=== PATIENT | male | born 1945 | race African-American/Black ===

== ENCOUNTER → 2016-11-13 | Outpatient (CLI) | payer MEDICARE ==
[2016-11-13 10:02] LABS: HEMATOCRIT 40.5 % (37.9-51.0); HGB HCT DIFFERENCE -1.5; MEAN CORPUSCULAR HEMOGLOBIN 25.7 pg (27.0-33.4); MEAN CORPUSCULAR HGB CONC 32.1 g/dL (32.0-36.0); MEAN CORPUSCULAR VOLUME 80 fl (80-97); RED BLOOD COUNT 5.07 10^6/uL (4.35-5.55); RED CELL DISTRIBUTION WIDTH 17.5 % (11.5-14.0); WHITE BLOOD COUNT 9.2 10^3/uL (4.0-10.5)
[2016-11-13 10:08] LABS: APPEARANCE,URINE CLEAR; BILIRUBIN,URINE NEGATIVE (NEGATIVE); GLUCOSE, URINE NEGATIVE (NEGATIVE); KETONES,URINE NEGATIVE (NEGATIVE); LEUKOCYTE ESTERASE,URINE NEGATIVE (NEGATIVE); NITRITE,URINE NEGATIVE (NEGATIVE); PROTEIN,URINE 100 mg/dL (NEGATIVE); UROBILINOGEN,URINE NEGATIVE mg/dL (<2.0)
[2016-11-13 10:15] LABS: ANION GAP 15 (5-19); BLOOD UREA NITROGEN 25 mg/dL (7-20); CALCIUM 9.2 mg/dL (8.4-10.2); CARBON DIOXIDE 22 mmol/L (22-30); CHLORIDE 110 mmol/L (98-107); CREATININE RESULT 1.67 mg/dL (0.52-1.25); GLUCOSE 149 mg/dL (75-110); POTASSIUM 4.2 mmol/L (3.6-5.0); SODIUM 147.4 mmol/L (137-145)
[2016-11-14 10:38] LABS: CREATININE URINE 79.1 mg/dL (Not Estab.)
== END ==
LOC: LAB 09:28
PROVIDERS: ATTEND Internal Medicine Nephrology
DX: I12.9 Hypertensive chronic kidney disease with stage 1 through stage 4 chronic kidney disease, or unspecified chronic kidney disease (principal); N18.3 Chronic kidney disease, stage 3 (moderate); E11.9 Type 2 diabetes mellitus without complications; R80.9 Proteinuria, unspecified; M10.00 Idiopathic gout, unspecified site
CPT/HCPCS: 36415; 80048; 81001; 82570; 84156; 85027

== ENCOUNTER 2017-02-13 18:53 | Inpatient (IN) | payer MEDICARE ==
--- NOTE | 2017-02-13 19:22 | ER Document Report ---
ED Medical Screen (RME) - General Chief Complaint: Shortness Of Breath Stated Complaint: DIFFICULTY BREATHING Time Seen by Provider: 02/13/17 19:20 Mode of Arrival: Ambulatory Information source: Patient Notes: 71-year-old man with a history of chronic kidney disease who presents to the emergency room with increasing shortness of breath, dyspnea on exertion and increasing lower extremity swelling over the last few days. TRAVEL OUTSIDE OF THE [place] IN LAST 30 DAYS: No - Related Data Allergies/Adverse Reactions: No Known Allergies Allergy (Verified 02/13/17 18:57) Past Medical History - Social History Chew tobacco use (# tins/day): No Frequency of alcohol use: None Drug Abuse: None - Past Medical History Cardiac Medical History: Reports: Hx Hypertension Renal/ Medical History: Denies: Hx Peritoneal Dialysis Past Surgical History: Reports: Hx Orthopedic Surgery - lt knee replacement, Hx Tonsillectomy - Immunizations Hx Diphtheria, Pertussis, Tetanus Vaccination: Yes Physical Exam - Vital signs Vitals: Temp Pulse Resp BP Pulse Ox 98.2 F 75 20 162/82 H 96 02/13/17 18:57 02/13/17 18:57 02/13/17 18:57 02/13/17 18:57 02/13/17 18:57 Course - Vital Signs Vital signs: Temp Pulse Resp BP Pulse Ox 98.2 F 75 20 162/82 H 96 02/13/17 18:57 02/13/17 18:57 02/13/17 18:57 02/13/17 18:57 02/13/17 18:57
[2017-02-13 19:47] LABS: ABSOLUTE BASOPHILS # (AUTO) 0.1 10^3/uL (0.0-0.2); ABSOLUTE EOSINOPHILS # (AUTO) 0.3 10^3/uL (0.0-0.6); ABSOLUTE LYMPHOCYTES (AUTO) 1.3 10^3/uL (0.5-4.7); ABSOLUTE NEUT (AUTO) 6.7 10^3/uL (1.7-8.2); BASOPHILS % (AUTO) 0.9 % (0-2); EOSINOPHILS % (AUTO) 2.9 % (0-6); HEMATOCRIT 41.3 % (37.9-51.0); HEMOGLOBIN 12.8 g/dL (13.5-17.0); HGB HCT DIFFERENCE -2.9; LYMPHOCYTES % (AUTO) 13.6 % (13-45); MEAN CORPUSCULAR HEMOGLOBIN 25.2 pg (27.0-33.4); MEAN CORPUSCULAR HGB CONC 31.1 g/dL (32.0-36.0); MEAN CORPUSCULAR VOLUME 81 fl (80-97); MONOCYTES % (AUTO) 11.2 % (3-13); RED BLOOD COUNT 5.08 10^6/uL (4.35-5.55); RED CELL DISTRIBUTION WIDTH 17.8 % (11.5-14.0); SEGMENTED NEUTROPHILS % (AUTO) 71.4 % (42-78); WHITE BLOOD COUNT 9.3 10^3/uL (4.0-10.5)
--- NOTE | 2017-02-13 19:57 | ER Document Report ---
ED General - General Chief Complaint: Shortness Of Breath Stated Complaint: DIFFICULTY BREATHING Time Seen by Provider: 02/13/17 19:20 Mode of Arrival: Ambulatory Notes: Patient is a 71-year-old male with a past medical history of hypertension, hypercholesterolemia, chronic kidney disease who presents with 4-5 days of progressively worsening orthopnea, dyspnea on exertion and peripheral edema. Denies a history of similar symptoms in the past. He has not seen his primary care doctor regarding today's concerns. States he came to the emergency department today due to his inability to see his primary care doctor. He denies any associated chest pain, vomiting or pain radiating into the arms, jaw or back. States that his shortness of breath is most severe when lying flat and this is actually prevented him from sleeping over the past several days. States in general his symptoms do improve after he sits up. Denies any fever or constitutional symptoms. TRAVEL OUTSIDE OF THE [place] IN LAST 30 DAYS: No - Related Data Allergies/Adverse Reactions: No Known Allergies Allergy (Verified 02/13/17 18:57) Past Medical History - General Information source: Patient - Social History Smoking Status: Never Smoker Chew tobacco use (# tins/day): No Frequency of alcohol use: None Drug Abuse: None Lives with: Spouse/Significant other Family History: Reviewed & Not Pertinent Patient has suicidal ideation: No Patient has homicidal ideation: No - Past Medical History Cardiac Medical History: Reports: Hx Hypertension Renal/ Medical History: Denies: Hx Peritoneal Dialysis Past Surgical History: Reports: Hx Orthopedic Surgery - lt knee replacement, Hx Tonsillectomy - Immunizations Hx Diphtheria, Pertussis, Tetanus Vaccination: Yes Review of Systems - Review of Systems Notes: Constitutional: Negative for fever. HENT: Negative for sore throat. Eyes: Negative for visual changes. Cardiovascular: Negative for chest pain. Respiratory: Positive for shortness of breath. Gastrointestinal: Negative for abdominal pain, vomiting or diarrhea. Genitourinary: Negative for dysuria. Musculoskeletal: Positive for bilateral lower extremity edema Skin: Negative for rash. Neurological: Negative for headaches, weakness or numbness. 10 point ROS negative except as marked above and in HPI. Physical Exam - Vital signs Vitals: Temp Pulse Resp BP Pulse Ox 98.2 F 75 20 162/82 H 96 02/13/17 18:57 02/13/17 18:57 02/13/17 18:57 02/13/17 18:57 02/13/17 18:57 Interpretation: Hypertensive Notes: PHYSICAL EXAMINATION: GENERAL: Well-appearing, well-nourished and in no acute distress. HEAD: Atraumatic, normocephalic. EYES: Pupils equal round and reactive to light, extraocular movements intact, sclera anicteric, conjunctiva are normal. ENT: nares patent, oropharynx clear without exudates. Moist mucous membranes. NECK: Normal range of motion, supple without lymphadenopathy LUNGS: Breath sounds are diminished at the bases bilaterally, more prominent on the right. No tachypnea or distress HEART: Regular rate and rhythm without murmurs ABDOMEN: Soft, nontender, normoactive bowel sounds. No guarding, no rebound. No masses appreciated. EXTREMITIES: Normal range of motion, 4+ pitting edema in the bilateral lower extremities NEUROLOGICAL: No focal neurological deficits. Moves all extremities spontaneously and on command. PSYCH: Normal mood, normal affect. SKIN: Warm, Dry, normal turgor, no rashes or lesions noted. Course - Re-evaluation Re-evalutation: 02/13/17 19:55 Patient presents with 3 days of progressively worsening orthopnea, lower extremity edema, and generalized fatigue. Initial EKG is consistent with a second-degree block although there are several components of the EKG that are somewhat worrisome for a third-degree block.. I contacted financial business analyst to review the EKG to confirm as we do not have electrophysiology at this facility and this would warrant transfer. Patient however is actually non-toxic in appearance, awake and talking to me without any difficulty. His heart rate does range anywhere between the mid 30s to upper 50s which again would be somewhat inconsistent with a third-degree block. Primary concern at this time is that patient may have a degree of congestive heart failure versus progressively worsening chronic kidney disease with associated pulmonary edema. Will obtain labs, chest x-ray, continue on monitor and storage bin tender, placed pads on patient's chest and continually reassess frequently. 02/13/17 20:19 I discussed this case with Dr. Haynes who feels that this is more likely a second-degree block and the patient does not require transfer to a place of electrophysiology. Patient remains hemodynamically stable. 02/13/17 21:15 Patient continues to be nontoxic in appearance. Laboratories demonstrate findings consistent with congestive heart failure with an elevated proBNP, and chest x-ray does demonstrate pulmonary edema and vascular congestion. Given patient's likely new diagnosis of congestive failure with associated pulmonary edema, symptomatic orthopnea, tachypnea on exertion, and a new second-degree block that was not present on a prior EKG, patient will be admitted to the hospital. - Vital Signs Vital signs: Temp Pulse Resp BP Pulse Ox 99.0 F 45 L 20 153/54 H 95 02/14/17 00:06 02/14/17 02:00 02/14/17 00:06 02/14/17 00:06 02/14/17 00:06 - Laboratory Result Diagrams: 02/13/17 19:25 02/13/17 19:25 Laboratory results interpreted by me: 02/13/17 02/13/17 02/13/17 19:25 19:25 19:25 Hgb 12.8 L MCH 25.2 L MCHC 31.1 L RDW 17.8 H Chloride 110 H Carbon Dioxide 19 L Creatinine 1.47 H Est GFR ( Amer) 57 L Est GFR (Non-Af Amer) 47 L Glucose 128 H NT-Pro-B Natriuret Pep 2650 H - Diagnostic Test Radiology reviewed: Image reviewed, Reports reviewed Radiology results interpreted by me: 02/13/17 21:30 Chest x-ray: Vascular congestion, pulmonary edema more prominent on the right lower lobe - EKG Interpretation by Me Additional EKG results interpreted by me: 02/14/17 03:00 Bradycardia rate 39. Second-degree AV block Mobitz type I. PACs present. No ST elevations are present Discharge - Discharge Clinical Impression: Orthopnea, Second degree AV block, Mobitz type I Pulmonary edema Qualifiers: Chronicity: acute Qualified Code(s): J81.0 - Acute pulmonary edema Condition: Fair Disposition: ADMITTED INPATIENT [facility] Admitted: [facility]
[2017-02-13 20:08] LABS: ALANINE AMINOTRANSFERASE 52 U/L (21-72); ALKALINE PHOSPHATASE 117 U/L (38-126); ANION GAP 13 (5-19); ASPARTATE AMINO TRANSFERASE 34 U/L (17-59); BILIRUBIN,DIRECT 0.3 mg/dL (0.0-0.4); BLOOD UREA NITROGEN 19 mg/dL (7-20); CARBON DIOXIDE 19 mmol/L (22-30); CHLORIDE 110 mmol/L (98-107); CREATINE KINASE 74 U/L (55-170); CREATININE RESULT 1.47 mg/dL (0.52-1.25); GLUCOSE 128 mg/dL (75-110); POTASSIUM 3.6 mmol/L (3.6-5.0); SODIUM 141.9 mmol/L (137-145)
[2017-02-13 20:20] LABS: CREATINE KINASE MB 1.08 ng/mL (<4.55); TROPONIN I 0.012 ng/mL
--- NOTE | 2017-02-13 20:28 | RADIOLOGY REPORT (SQ) ---
EXAM DESCRIPTION: CHEST SINGLE VIEW COMPLETED DATE/TIME: 02/13/2017 8:11 pm REASON FOR STUDY: sob COMPARISON: None. EXAM PARAMETERS: NUMBER OF VIEWS: One view. TECHNIQUE: Single frontal radiographic view of the chest acquired. RADIATION DOSE: NA LIMITATIONS: None. FINDINGS: LUNGS AND PLEURA: Patchy airspace disease in the right lung base. No significant effusion . No pneumothorax. Mild interstitial thickening bilaterally. MEDIASTINUM AND HILAR STRUCTURES: Age-appropriate. HEART AND VASCULAR STRUCTURES: Mild cardiac enlargement. BONES: No acute findings. HARDWARE: None in the chest. OTHER: No other significant finding. IMPRESSION: Patchy airspace disease in the right lung base. No significant effusion. Mild intersti tial thickening bilaterally. TECHNICAL DOCUMENTATION: JOB ID: [id number]
[2017-02-13] MEDS ORDERED: FUROSEMIDE INJ/PF 40 MG/4 ML SDV IV ONE (21:14)
[2017-02-13] MEDS ORDERED: NITROGLYCERIN 5 MG (0.2 MG/HR) PATCH.TD24 TD ONE (22:45)
--- NOTE | 2017-02-13 23:16 | PDOC H&P ---
History of Present Illness Admission Date/PCP: 02/13/17 22:11 SHAWN HERNANDEZ, Patient complains of: Shortness of breath and leg swelling History of Present Illness: HARMONY RODRIGUEZ is a 71 year old male with a past medical history of hypertension, gout and chronic kidney disease who had been in his usual state of health until approximately 4 days prior to presentation with shortness of breath with exertion and orthopnea. He denies recent chest, back or abdominal pain, palpitations nausea or vomiting. He also denies recent change in medications and or diet. In the emergency room he is found to have volume overload with a second-degree heart block with bradycardia. He started on Lasix and referred to the hospitalist for admission. Patient denies recent viral prodrome and is otherwise felt well. Past Medical History Cardiac Medical History: Reports: Hypertension Renal/ Medical History: Reports: Chronic Kidney Disease Musculoskeltal Medical History: Reports: Gout Past Surgical History Past Surgical History: Reports: Orthopedic Surgery - lt knee replacement, Tonsillectomy Social History Information Source: Patient Lives with: Spouse/Significant other Smoking Status: Never Smoker Frequency of Alcohol Use: None Drugs: None - Advance Directive Resuscitation Status: Full Code Family History Family History: None Parental Family History Reviewed: Yes Children Family History Reviewed: Yes Sibling(s) Family History Reviewed.: Yes Medication/Allergy Home Medications: Allopurinol [Zyloprim 300 Mg Tablet] 300 mg PO DAILY 07/04/12 Bisoprolol Fumarate/Hctz [Ziac 5-6.25 Mg Tablet] 1 each PO DAILY 07/04/12 Nifedipine [Adalat CC 60 mg Tablet] 60 mg PO DAILY 07/04/12 Allergies/Adverse Reactions: No Known Allergies Allergy (Verified 02/13/17 18:57) Review of Systems Constitutional: ABSENT: chills, fever(s), headache(s), weight gain, weight loss Eyes: ABSENT: visual disturbances Ears: ABSENT: hearing changes Cardiovascular: PRESENT: dyspnea on exertion, edema, orthropnea. ABSENT: chest pain, palpitations Respiratory: ABSENT: cough, hemoptysis Gastrointestinal: ABSENT: abdominal pain, constipation, diarrhea, hematemesis, hematochezia, nausea, vomiting Genitourinary: ABSENT: dysuria, hematuria Musculoskeletal: ABSENT: joint swelling Integumentary: ABSENT: rash, wounds Neurological: ABSENT: abnormal gait, abnormal speech, confusion, dizziness, focal weakness, syncope Psychiatric: ABSENT: anxiety, depression, homidical ideation, suicidal ideation Endocrine: ABSENT: cold intolerance, heat intolerance, polydipsia, polyuria Hematologic/Lymphatic: ABSENT: easy bleeding, easy bruising Physical Exam Vital Signs: Temp Pulse Resp BP Pulse Ox 98.2 F 75 25 H 173/63 H 96 02/13/17 18:57 02/13/17 18:57 02/13/17 22:42 02/13/17 22:42 02/13/17 22:42 General appearance: PRESENT: no acute distress, cooperative, well-developed, well-nourished Head exam: PRESENT: atraumatic, normocephalic Eye exam: PRESENT: conjunctiva pink, EOMI, PERRLA. ABSENT: scleral icterus Ear exam: PRESENT: normal external ear exam Mouth exam: PRESENT: moist, tongue midline Neck exam: ABSENT: carotid bruit, JVD, lymphadenopathy, thyromegaly Respiratory exam: PRESENT: crackles, decreased breath sounds, tachypnea. ABSENT : rales, rhonchi, wheezes Cardiovascular exam: PRESENT: bradycardia, irregular rhythm, +S1, +S2. ABSENT: diastolic murmur, rubs, systolic murmur Pulses: PRESENT: normal dorsalis pedis pul Vascular exam: PRESENT: normal capillary refill GI/Abdominal exam: PRESENT: normal bowel sounds, soft. ABSENT: distended, guarding, mass, organolmegaly, rebound, tenderness Rectal exam: PRESENT: deferred Extremities exam: PRESENT: full ROM, pedal edema, +2 edema. ABSENT: calf tenderness, clubbing, joint swelling, tenderness Neurological exam: PRESENT: alert, awake, oriented to person, oriented to place , oriented to time, oriented to situation, CN II-XII grossly intact. ABSENT: motor sensory deficit Psychiatric exam: PRESENT: appropriate affect, normal mood. ABSENT: homicidal ideation, suicidal ideation Skin exam: PRESENT: dry, intact, warm. ABSENT: cyanosis, rash Results Impressions: Chest X-Ray 02/13/17 19:20 IMPRESSION: Patchy airspace disease in the right lung base. No significant effusion. Mild interstitial thickening bilaterally. Assessment & Plan - Diagnosis (1) Congestive heart failure Qualifiers: Congestive heart failure type: unspecified congestive heart failure type Is this a current diagnosis for this admission?: YesPlan: Secondary to dysrhythmia resulting in volume overload, transcutaneous pacemaker placed, cardiology consulted, beta-shereen reduced, transdermal nitro and Lasix initiated. 2D echo and fluid restriction ordered (2) Chronic kidney disease Is this a current diagnosis for this admission?: YesPlan: Chronic kidney disease, avoiding nephrotoxic meds and doses holding allopurinol. Reevaluate chemistry (3) Hypertension Is this a current diagnosis for this admission?: YesPlan: Optimize ERIKA inhibitor, nitroglycerin and as needed hydralazine. Norvasc held for edema (4) Second degree AV block, Mobitz type I Is this a current diagnosis for this admission?: YesPlan: Transcutaneous pacing placed not yet indicated, cardiology consult. - Time Time Spent: 50 to 70 Minutes - Inpatient Certification Medical Necessity: Need Close Monitoring Due to Risk of Patient Decompensation
[2017-02-14 02:01] LABS: CREATINE KINASE MB 1.08 ng/mL (<4.55); TROPONIN I 0.016 ng/mL
[2017-02-14] MEDS: HEPARIN SOD (PORCINE) 5,000 UNIT/ML 1 ML SYRINGE SUBCUT SCH ×3 (05:54→22:06)
[2017-02-14 08:23] LABS: ABSOLUTE EOSINOPHILS # (AUTO) 0.3 10^3/uL (0.0-0.6); ABSOLUTE MONOCYTES (AUTO) 0.9 10^3/uL (0.1-1.4); ABSOLUTE NEUT (AUTO) 6.8 10^3/uL (1.7-8.2); BASOPHILS % (AUTO) 0.5 % (0-2); EOSINOPHILS % (AUTO) 3.1 % (0-6); HEMATOCRIT 38.5 % (37.9-51.0); HEMOGLOBIN 12.2 g/dL (13.5-17.0); HGB HCT DIFFERENCE -1.9; LYMPHOCYTES % (AUTO) 11.1 % (13-45); MEAN CORPUSCULAR HEMOGLOBIN 25.8 pg (27.0-33.4); MEAN CORPUSCULAR HGB CONC 31.6 g/dL (32.0-36.0); MEAN CORPUSCULAR VOLUME 82 fl (80-97); MONOCYTES % (AUTO) 10.2 % (3-13); RED BLOOD COUNT 4.73 10^6/uL (4.35-5.55); RED CELL DISTRIBUTION WIDTH 17.2 % (11.5-14.0); SEGMENTED NEUTROPHILS % (AUTO) 75.1 % (42-78)
[2017-02-14 08:43] LABS: ANION GAP 15 (5-19); BLOOD UREA NITROGEN 17 mg/dL (7-20); CALCIUM 8.8 mg/dL (8.4-10.2); CARBON DIOXIDE 21 mmol/L (22-30); CHLORIDE 109 mmol/L (98-107); CHOLESTEROL 134.56 mg/dL (0-200); CREATINE KINASE 55 U/L (55-170); CREATININE RESULT 1.42 mg/dL (0.52-1.25); Direct HDL 36 mg/dL (>40); GLUCOSE 116 mg/dL (75-110); POTASSIUM 3.4 mmol/L (3.6-5.0); SODIUM 144.5 mmol/L (137-145); TRIGLYCERIDES 73 mg/dL (<150)
[2017-02-14 08:51] LABS: CREATINE KINASE MB 0.72 ng/mL (<4.55); TROPONIN I 0.017 ng/mL
[2017-02-14 08:54] LABS: DIRECT LDL 81 mg/dL (<100)
--- NOTE | 2017-02-14 09:13 | EKG REPORT ---
SEVERITY:- ABNORMAL ECG - SINUS BRADYCARDIA MOBITZ I AV BLOCK ([place]) LEFT ANTERIOR FASCICULAR BLOCK BORDERLINE T WAVE ABNORMALITIES : Confirmed by: Apolinar Arango MD 14-Feb-2017 09:13:07
--- NOTE | 2017-02-14 09:15 | EKG REPORT ---
SEVERITY:- ABNORMAL ECG - SINUS BRADYCARDIA SECOND DEGREE AV BLOCK MOBITZ I. LEFT ANTERIOR FASCICULAR BLOCK OLD ANTERIOR [place] : Confirmed by: Apolinar Arango MD 14-Feb-2017 09:14:39
[2017-02-14] MEDS ORDERED: ATROPINE SULFATE INJ 1 MG/10 ML DISP.SYRIN IV ONE ×2 (09:24→10:00)
[2017-02-14] MEDS ORDERED: POTASSIUM CHLORIDE 20 MEQ/15 ML UDCUP PO ONE (09:26)
[2017-02-14] MEDS: FUROSEMIDE INJ/PF 40 MG/4 ML SDV IV SCH (09:45)
[2017-02-14] MEDS: ENALAPRIL MALEATE 10 MG TABLET PO SCH ×2 (09:47→22:05)
[2017-02-14] MEDS: DOCUSATE SODIUM 100 MG CAPSULE PO SCH (09:47)
[2017-02-14] MEDS: ASPIRIN 81 MG TABLET, ENT COATED PO SCH (09:48)
[2017-02-14 10:00] LABS: FREE T3 4.22 pg/mL (2.77-5.27)
[2017-02-14] MEDS ORDERED: CARVEDILOL 12.5 MG TABLET PO SCH (10:00)
[2017-02-14 10:14] LABS: THYROID STIMULATING HORMONE 2.23 uIU/mL (0.47-4.68)
--- NOTE | 2017-02-14 15:13 | CONSULTATION REPORT E ---
Consultation Report NAME: HARMONY RODRIGUEZ : 1945 AGE: 71Y DATE: 02/14/2017 335 A TO: EMMA FIORE M.D. FROM: GEORGINA GREER M.D. Requesting Physician REASON FOR CONSULTATION: Bradycardia and second degree AV block. HISTORY OF PRESENT ILLNESS: The patient is a 71-year-old male with past medical history of hypertension and chronic kidney disease who states that since the past 4 days prior to admission he has been having progressively increasing shortness of breath with less shortness of breath with PND, orthopnea, and leg edema. He also had some chest tightness which is now relieved. Also the patient's PND and leg edema is much improved now with treatment. The patient was seen in the emergency room and the ER doctor called me saying that the patient was in complete heart block but on review of the EKG by me on the computer in [employer], although he had episodes of 2:1 second degree AV block, it seemed that there were episodes where the patient had second degree AV block type I Wenckebach. Also when he had 2:1 AV block, the QRS complexes were narrow and in view of the patient's other rhythm showing that the patient was in Wenckebach type I second degree AV block, it was thought that this 2:1 AV block was also secondary to Wenckebach. The patient denies any dizziness or syncope or near syncope. There are no TIA or CVA symptoms. At present the patient has no shortness of breath at rest and has no PND but does have some orthopnea. The patient's states with diuretics he had good diuresis. The patient's blood pressure has remained stable even when the patient had second degree AV block. After I gave the patient atropine 0.6 mg IV push times 1, the patient's EKG seems to be showing sinus rhythm with first degree AV block and occasionally blocked APCs. PAST MEDICAL HISTORY: Positive for history of hypertension and history of chronic kidney disease. He also has history of glaucoma. The patient for his blood pressure has been on Coreg, amlodipine, timolol for his eyedrops, and also lisinopril. The patient's Coreg has been discontinued. He has a history of diabetes mellitus type 2, non-insulin dependent. He used to be on metformin which recently has been discontinued. He has a history of chronic kidney disease. At present seems to be stage II with a GFR of 59 mL/min. He also has hypokalemia which has been corrected. He has no history of TIA or CVA. No history of AZ. Patient denies past history of congestive heart failure, only recent leg edema, PND, orthopnea. The patient denies any palpitations, dizziness, near syncope, or syncope. There is no history of coronary heart disease. No history of rheumatic fever. No history of AZ or anginal symptoms. No history of asthma or COPD. No history of sleep apnea. No history of pulmonary embolism. No recent cough or sputum production. No symptoms of urinary tract infection. REVIEW OF SYSTEMS: CONSTITUTIONAL: Denies any fever, chills, or rigors. Patient has some mild generalized fatigue. HEAD: Denies any dizziness or head injury. EYES: No history of amblyopia or diplopia. No history of amaurosis fugax. EARS: No history of hearing loss. No history of tinnitus. No history of vertigo. NOSE: No history of deviated nasal septum. No bleeding from the nose. No history of hay fever. No history of nasal polyposis. MOUTH: No history of altered taste sensation. No history of ulcers in the mouth. No history of bleeding from the gums. THROAT: No history of odynophagia or dysphagia. No history of recurrent sore throats. SKIN: No pruritus. No yellowish discoloration of the skin. No history of psoriasis. No history of skin cancer. NECK: No history of painless or painful swelling in the neck. No neck pain. No goiter. LUNGS: No history of recent cough or sputum production. No wheezing. No history of asthma or COPD. No history of sleep apnea. No history of pulmonary embolism. No history of pleuritic chest pain. No history of hemoptysis. No symptoms suggestive of upper or lower respiratory tract infection of pneumonia. CARDIAC: History of hypertension. At present patient on Coreg. Doubt second degree AV block with stable blood pressure and without any symptoms of dizziness or syncope or near syncope. His Coreg has been stopped and now the patient is in sinus rhythm with first degree AV block with occasional blocked premature atrial complexes. The patient has no history of congestive heart failure although recently the patient's symptoms suggestive of biventricular failure with leg edema, PND, orthopnea. No history of AZ. No prior history of anginal symptoms but the patient states that recently he has been having chest tightness. This may be due to the patient being in volume overload congestive heart failure. It is not known what the patient's systolic function is and if at all the patient has diastolic dysfunction, we will need an echo. There is no history of dizziness or near syncope or syncope. History of hypertension well controlled. No prior history of AZ or anginal symptoms. MUSCULOSKELETAL: Denies arthritis or collagen vascular disease. RENAL: History of chronic kidney disease. At present GFR is 59, hence the patient is stage II. On admission the patient was stage III. No symptoms of UTI. No symptoms of an enlarged prostate. No history of hematuria, pyuria, or dysuria. GASTROINTESTINAL: No history of GERD. No history of peptic ulcer disease. No history of GI bleed. No history of fatty food intolerance. No history of abdominal pain. No history of jaundice. No history of cirrhosis. No history of altered bowel movements. CENTRAL NERVOUS SYSTEM: No history of TIA or CVA. No history of seizures, headaches, or migraines. No history gait imbalance. No history of sleep apnea. PSYCHIATRIC: No history of anxiety or depression. No suicidal or homicidal ideation. VASCULAR: No history of calf or buttock claudication. No history of DVT. HEMATOLOGICAL: No history of bleeding diathesis. No history of clotting disorders. ALLERGIES: The patient has no known allergies. SOCIAL HISTORY: The patient does not smoke. There is no history of ETOH abuse. DISPOSITION: The patient is a FULL CODE. His is the surrogate healthcare decision maker. MEDICATIONS: 1. Aspirin 81 mg p.o. daily. 2. Note that the patient had one dose of atropine 0.6 mg times 1. 3. Colace 100 mg p.o. daily. 4. He is on Vasotec 10 mg p.o. q.12 hours. 5. He did get Lasix 40 mg IV push times 1 yesterday and he is on 40 mg IV daily. 6. He is on heparin 5000 units subcutaneously q.8 hours for DVT/PE prophylaxis. 7. He is on nitroglycerin, Nitro-Dur transdermal times 1 which has been discontinued. 8. He did get KCL 30 mEq p.o. times 1 for his potassium being low. PHYSICAL EXAMINATION: On examination, the patient was seen around 9 a.m. VITAL SIGNS: His pulse was 60 beats per minute. The patient is afebrile with a temperature of 98.2 degrees Fahrenheit. His blood pressure is 138/72. Respirations are 16 per minute. O2 saturations are 96% on room air. HEAD: Atraumatic, normocephalic. EYES: Pupils are equal, round, regular and reactive to light and accommodation. Extraocular movements are normal. There is no conjunctival pallor. There is no scleral icterus. EARS: Tympanic membranes are intact. External auditory canals are clear. NOSE: There is no deviated nasal septum. There is no inflammation of the nasal mucous membranes. THROAT: Mucous membranes of the throat are without any exudates or redness. SKIN: There are no skin rashes. There is no petechia or ecchymosis. There are no skin lesions. NECK: Supple. There is mild JVD present. Carotids are equal. There is no bruit. There is no goiter. There is no lymphadenopathy. There are axillary muscles of respiration in use. Trachea is central. LUNGS: Show a few bibasilar rales of CHF. There is no chest wall tenderness. HEART: S1 and S2 are heard. There is no S3 gallop. There is no S4 gallop. There is a systolic murmur in the left sternal border and the apex. There are no rubs. ABDOMEN: Soft, nontender. There is no hepatosplenomegaly. Bowel sounds are well heard. There are no tender areas or masses. EXTREMITIES: Femorals are slightly diminished. There are no femoral bruits. Leg pulses are well felt. There is trace to mild pedal edema bilaterally. There is no cyanosis or clubbing. There is no DVT or cellulitis. There is no calf tenderness. CENTRAL NERVOUS SYSTEM: The patient is conscious, awake, alert, oriented x3 with no focal deficits. PSYCHIATRIC: The patient's judgment and insight are intact. His affect is normal. DIAGNOSTICS: The patient's chest x-ray shows patchy airspace disease in the right lung base. No significant effusion. Mild interstitial thickening bilaterally. There is mild cardiac enlargement but no definite evidence of congestive heart failure. The patient's EKG done yesterday shows a heart rate of 39 beats per minute which is second degree AV block, Mobitz type I. Left anterior fascicular block. Poor R wave in V1-V3 most likely secondary to left anterior fascicular block. The patient's EKG done this morning shows sinus bradycardia, Mobitz type 1 AV block, left anterior fascicular block, borderline T wave abnormalities and also blocked APCs. His EKG subsequent to giving atropine shows sinus bradycardia with first degree AV block and occasional blocked APCs. The patient's sodium is 144.5, potassium 3.4, chloride is 109, CO2 is 21. The patient's BUN is 17, creatinine is 1.42, GFR is reduced at 59 mL. His glucose is 116 and his calcium is 8.8. His cardiac enzymes have been negative x3 including the CPK-MB and the troponin I. his NT-proBNP is 2650. His triglycerides are 73. His total cholesterol is 134.56. His LDL cholesterol is good at 81. His HDL cholesterol is low at 36. His thyroid function showed a normal TSH of 2.23. Free T4 is 1.37. Free T3 is 4.22. The patient's white count is 9000, hemoglobin is 12.2, hematocrit is 38.5, and his platelet count is 190,000. IMPRESSION: 1. Second degree AV block, Mobitz type I with a stable blood pressure and asymptomatic. 2. Volume overload congestive heart failure, most likely secondary to his renal function deteriorating. Cannot at present conclude if the patient has systolic or diastolic or a combination of systolic and diastolic heart failure. Will need an echocardiogram. Note that the patient's Coreg has been held. He is on Vasotec. Continue the same. 3. Hypertension seems to be fairly well controlled. 4. Diabetes mellitus type 2, non-insulin dependent. 5. Dyslipidemia. 6. Chronic kidney disease. At present stage II. On admission it was stage III. Continue the patient's Lasix. Continue his other medications. Will hold the patient's beta shereen. We will get an echocardiogram. Later would recommend the patient have an IV Lexiscan Cardiolite stress test. Note, the patient was seen at 9 a.m. Forty minutes spent on the patient with more than 50% of the time spent on direct patient care. His medications have been reviewed. Medications have been adjusted and stopped. Medications added. Note this required a highly complex medical decision making. Discussed with other caregiving providers on the case. We will follow with you. Coordination of care done and management plan formulated for this patient after discussions with the other caregiving providers on the case. We will follow up with you. Thanking you. DICTATING PHYSICIAN: EMMA FIORE M.D. [id number] PHY#: [id number] ID: [id number] JOB#: [id number] ACCT: [id number] cc:EMMA FIORE M.D. > MTDD
[2017-02-14 15:19] LABS: CREATINE KINASE MB 0.73 ng/mL (<4.55); TROPONIN I 0.013 ng/mL
--- NOTE | 2017-02-14 16:38 | EKG REPORT ---
SEVERITY:- ABNORMAL ECG - SINUS RHYTHM NONCONDUCTED PAC FIRST DEGREE AV BLOCK LEFT ANTERIOR FASCICULAR BLOCK : Confirmed by: Apolinar Arango MD 14-Feb-2017 16:37:59
--- NOTE | 2017-02-14 19:49 | PDOC PROGRESS REPORT ---
Subjective Progress Note for:: 02/14/17 Subjective:: Patient continues to have a heart rate in the 30s and 40s. Patient denies chest pain, shortness of breath, nausea, vomiting, fever, chills. Physical Exam Vital Signs: Temp Pulse Resp BP Pulse Ox 98.0 F 61 20 141/71 H 95 02/14/17 03:53 02/14/17 03:53 02/14/17 03:53 02/14/17 03:53 02/14/17 03:53 Intake & Output 02/13/17 02/14/17 02/15/17 06:59 06:59 06:59 Intake Total 200 Output Total 1775 Balance -1575 Weight 84.8 kg Exam: GENERAL: A+Ox3, NAD HEENT: Conjunctiva clear, nonicteric, moist mucous membranes, no JVD, midline trachea RESPIRATORY: CTAB CARDIAC: Bradycardic, regularly irregular, +2/6 SM LLSB, no gallops/rubs ABDOMEN: Soft, NTTP, ND, +BSx4 EXTREMETIES: No cyanosis, clubbing; 2+ bilateral lower extremity edema NEUROLOGIC: Alert, oriented to person/place/time, CN's grossly intact, no focal deficits SKIN: No rash, wounds PSYCH: Normal mood, normal affect Results Laboratory Results: 02/14/17 02/14/17 01:27 01:27 Creatine Kinase 69 CK-MB (CK-2) 1.08 Troponin I 0.016 Impressions: Chest X-Ray 02/13/17 19:20 IMPRESSION: Patchy airspace disease in the right lung base. No significant effusion. Mild interstitial thickening bilaterally. Assessment & Plan - Diagnosis (1) Second degree AV block, Mobitz type I Is this a current diagnosis for this admission?: YesPlan: Patient currently with second-degree Mobitz block. Stop patient's Coreg and Norvasc. Continue to monitor. Consider dopamine for hypotension and dobutamine for congestive heart failure. Appreciate cardiology input. Continue to monitor patient on telemetry for fear of worsening to third-degree heart block. (2) Congestive heart failure Qualifiers: Congestive heart failure type: unspecified congestive heart failure type Congestive heart failure chronicity: acute Qualified Code(s): I50.9 - Heart failure, unspecified Is this a current diagnosis for this admission?: YesPlan: Patient with acute congestive heart failure. Continue diuresis. Unable to tolerate beta-shereen secondary to bradycardia. Lisinopril 40 mg p.o. daily. Echo currently pending. Consider dobutamine if patient persists with bradycardia and heart failure. (3) Chronic kidney disease Qualifiers: Chronic kidney disease stage: stage 2 (mild) Qualified Code(s): N18.2 - Chronic kidney disease, stage 2 (mild) Is this a current diagnosis for this admission?: YesPlan: Adjust medications (4) Hypertension Qualifiers: Hypertension type: unspecified Qualified Code(s): I10 - Essential ( primary) hypertension Is this a current diagnosis for this admission?: YesPlan: Currently controlled on lisinopril and will consider as needed hydralazine. - Time Time Spent with patient: 15-24 minutes Medications reviewed and adjusted accordingly: Yes Within: Other - Improvement patient's symptomatology
[2017-02-14] MEDS ORDERED: NITROGLYCERIN 5 MG (0.2 MG/HR) PATCH.TD24 TD SCH (22:00)
[2017-02-14] MEDS: LATANOPROST 0.005% OPH SOLN 2.5 ML OS SCH (23:02)
[2017-02-15] MEDS: HEPARIN SOD (PORCINE) 5,000 UNIT/ML 1 ML SYRINGE SUBCUT SCH ×3 (06:11→21:18)
[2017-02-15 08:30] LABS: ABSOLUTE BASOPHILS # (AUTO) 0.1 10^3/uL (0.0-0.2); ABSOLUTE EOSINOPHILS # (AUTO) 0.3 10^3/uL (0.0-0.6); ABSOLUTE LYMPHOCYTES (AUTO) 1.6 10^3/uL (0.5-4.7); ABSOLUTE MONOCYTES (AUTO) 1.2 10^3/uL (0.1-1.4); ABSOLUTE NEUT (AUTO) 6.7 10^3/uL (1.7-8.2); BASOPHILS % (AUTO) 0.9 % (0-2); EOSINOPHILS % (AUTO) 2.6 % (0-6); HEMATOCRIT 40.3 % (37.9-51.0); HEMOGLOBIN 12.7 g/dL (13.5-17.0); HGB HCT DIFFERENCE -2.2; LYMPHOCYTES % (AUTO) 16.4 % (13-45); MEAN CORPUSCULAR HEMOGLOBIN 25.7 pg (27.0-33.4); MEAN CORPUSCULAR HGB CONC 31.4 g/dL (32.0-36.0); MEAN CORPUSCULAR VOLUME 82 fl (80-97); MONOCYTES % (AUTO) 12.2 % (3-13); RED BLOOD COUNT 4.92 10^6/uL (4.35-5.55); RED CELL DISTRIBUTION WIDTH 17.5 % (11.5-14.0); SEGMENTED NEUTROPHILS % (AUTO) 67.9 % (42-78); WHITE BLOOD COUNT 9.9 10^3/uL (4.0-10.5)
[2017-02-15 08:38] LABS: ANION GAP 12 (5-19); BLOOD UREA NITROGEN 19 mg/dL (7-20); CALCIUM 8.7 mg/dL (8.4-10.2); CARBON DIOXIDE 23 mmol/L (22-30); CHLORIDE 108 mmol/L (98-107); GLUCOSE 126 mg/dL (75-110); POTASSIUM 3.7 mmol/L (3.6-5.0)
[2017-02-15] MEDS: LISINOPRIL 10 MG TABLET PO SCH (10:27)
[2017-02-15] MEDS ORDERED: ATROPINE SULFATE INJ 1 MG/10 ML DISP.SYRIN IV ONE ×2 (10:30→11:00)
[2017-02-15] MEDS: FUROSEMIDE INJ/PF 40 MG/4 ML SDV IV SCH (10:31)
[2017-02-15] MEDS: ASPIRIN 81 MG TABLET, ENT COATED PO SCH ×2 (10:31→10:33)
[2017-02-15] MEDS: ATORVASTATIN CALCIUM 10 MG TABLET PO SCH (10:31)
[2017-02-15] MEDS: ENALAPRIL MALEATE 10 MG TABLET PO SCH ×2 (10:31→21:18)
[2017-02-15] MEDS: DORZOLAMIDE HCL 2% OPH SOLN 10 ML OS SCH ×3 (10:32→17:44)
[2017-02-15] MEDS: DOCUSATE SODIUM 100 MG CAPSULE PO SCH (10:32)
--- NOTE | 2017-02-15 12:57 | PDOC PROGRESS REPORT ---
Subjective Progress Note for:: 02/15/17 Subjective:: Patient continues to have a heart rate in the 30s and 40s. Patient denies chest pain, shortness of breath, nausea, vomiting, fever, chills , constipation, diarrhea. Physical Exam Vital Signs: Temp Pulse Resp BP Pulse Ox 98.2 F 62 18 151/79 H 98 02/15/17 12:16 02/15/17 12:16 02/15/17 12:16 02/15/17 12:16 02/15/17 12:16 Intake & Output 02/14/17 02/15/17 02/16/17 06:59 06:59 06:59 Intake Total 200 1038 Output Total 1773 6640 Balance -1575 -153 Weight 84.8 kg 84.3 kg Exam: GENERAL: A+Ox3, NAD HEENT: Conjunctiva clear, nonicteric, moist mucous membranes, no JVD, midline trachea RESPIRATORY: CTAB CARDIAC: Bradycardic, regularly irregular, +2/6 SM LLSB, no gallops/rubs ABDOMEN: Soft, NTTP, ND, +BSx4 EXTREMETIES: No cyanosis, clubbing; 1+ bilateral lower extremity edema NEUROLOGIC: Alert, oriented to person/place/time, CN's grossly intact, no focal deficits SKIN: No rash, wounds PSYCH: Normal mood, normal affect Results Laboratory Results: 02/15/17 08:10 02/15/17 08:10 02/15/17 02/15/17 08:10 08:10 WBC 9.9 RBC 4.92 Hgb 12.7 L Hct 40.3 MCV 82 MCH 25.7 L MCHC 31.4 L RDW 17.5 H Plt Count 187 Seg Neutrophils % 67.9 Lymphocytes % 16.4 Monocytes % 12.2 Eosinophils % 2.6 Basophils % 0.9 Absolute Neutrophils 6.7 Absolute Lymphocytes 1.6 Absolute Monocytes 1.2 Absolute Eosinophils 0.3 Absolute Basophils 0.1 Sodium 143.0 Potassium 3.7 Chloride 108 H Carbon Dioxide 23 Anion Gap 12 BUN 19 Creatinine 1.50 H Est GFR ( Amer) 56 L Est GFR (Non-Af Amer) 46 L Glucose 126 H Calcium 8.7 02/14/17 02/14/17 02/14/17 01:27 01:27 07:50 Creatine Kinase 69 55 CK-MB (CK-2) 1.08 Troponin I 0.016 02/14/17 02/14/17 02/14/17 07:50 14:12 14:12 Creatine Kinase 52 L CK-MB (CK-2) 0.72 0.73 Troponin I 0.017 0.013 Impressions: Chest X-Ray 02/13/17 19:20 IMPRESSION: Patchy airspace disease in the right lung base. No significant effusion. Mild interstitial thickening bilaterally. Assessment & Plan - Diagnosis (1) Second degree AV block, Mobitz type I Is this a current diagnosis for this admission?: YesPlan: Patient currently with second-degree Mobitz block. Continue to hold patient's Coreg and Norvasc. Have also held patient's combigen and timolol eye ggt. Continue to monitor. Consider dopamine for hypotension and dobutamine for congestive heart failure. Appreciate cardiology input and administration of atropine. Continue to monitor patient on telemetry for fear of worsening to third-degree heart block. (2) Congestive heart failure Qualifiers: Congestive heart failure type: unspecified congestive heart failure type Congestive heart failure chronicity: acute Qualified Code(s): I50.9 - Heart failure, unspecified Is this a current diagnosis for this admission?: YesPlan: Uncompensated. Patient with acute congestive heart failure. Continue diuresis. Unable to tolerate beta-shereen secondary to bradycardia. Lisinopril 40 mg p.o. daily. Echo currently pending. Consider dobutamine if patient persists with bradycardia and heart failure. (3) Chronic kidney disease Qualifiers: Chronic kidney disease stage: stage 2 (mild) Qualified Code(s): N18.2 - Chronic kidney disease, stage 2 (mild) Is this a current diagnosis for this admission?: YesPlan: Adjust medications (4) Hypertension Qualifiers: Hypertension type: unspecified Qualified Code(s): I10 - Essential ( primary) hypertension Is this a current diagnosis for this admission?: YesPlan: Currently controlled on lisinopril and will consider as needed hydralazine. - Time Time Spent with patient: 25-34 minutes Medications reviewed and adjusted accordingly: Yes - Inpatient Certification Based on my medical assessment, after consideration of the patient's comorbidities, presenting symptoms, or acuity I expect that the services needed warrant INPATIENT care.: Yes I certify that my determination is in accordance with my understanding of Medicare's requirements for reasonable and necessary INPATIENT services [42 CFR 412.3e].: Yes Medical Necessity: Need For Continuous Telemetry Monitoring Post Hospital Care: D/C Assistant Health Educator Documentation
--- NOTE | 2017-02-15 16:39 | PROGRESS NOTE E ---
Progress Note NAME: HARMONY RODRIGUEZ : 1945 AGE: 71Y DATE: 02/15/2017 ROOM: 335 SUBJECTIVE: The patient denies any chest pain or discomfort. There is no PND or orthopnea. There is no leg edema. The patient denies any anginal symptoms. There is no dizziness, near syncope or syncope. The patient continues to be in Mobitz type 1 Wenckebach second degree AV block. The patient was given atropine 1 mg IV push and subsequently went to first-degree AV block with a heart rate of 62 beats per minute. Even when the patient was 2:1 block Wenckebach type 1, his blood pressure was stable and patient was asymptomatic. There are no TIA or CVA symptoms. OBJECTIVE: GENERAL: On examination, the patient is well built and well nourished in no acute distress. VITAL SIGNS: He is afebrile with a temperature of 98.2 degrees Fahrenheit, pulse is 62 per minute after atropine, blood pressure is 151/79. Respirations are 18 per minute. Oxygen saturations are 98% on room air. HEAD: Atraumatic, normocephalic. EYES: Pupils are equal, round, regular and reactive to light and accommodation. Extraocular movements are normal. There is no conjunctival pallor. There is no scleral icterus. EARS: Tympanic membranes are intact. External auditory canals are clear. NOSE: There is no deviated nasal septum. There is no inflammation of the nasal mucous membranes. MOUTH: Mucous membranes of the mouth are moist. Tongue is moist. There are no ulcers. THROAT: There are no exudates in oropharynx. There is no redness of the oropharynx. SKIN: There are no skin rashes. There is no petechia or ecchymosis. There are no skin lesions. NECK: Supple. There is no JVD. Carotids are equal. There is no bruit. There is no goiter. There is no lymphadenopathy. There are no axillary muscles of respiration in use. Trachea is central. LUNGS: Clear to auscultation and percussion. There is no chest wall tenderness. HEART: S1 and S2 are heard. There is no S3 gallop. There is no S4 gallop. There is a systolic murmur in the left sternal border and the apex. There are no rub. ABDOMEN: Soft, nontender. There is no hepatosplenomegaly. Bowel sounds are well heard. There are no tender areas or masses. EXTREMITIES: Femorals are slightly diminished. There are no femoral bruits. Leg pulses are well felt. There is no pedal edema. There is no cyanosis or clubbing. There is no DVT or cellulitis. There is no calf tenderness. CENTRAL NERVOUS SYSTEM: The patient is conscious, awake, alert, oriented x3 with no focal deficits. PSYCHIATRIC: The patient's judgment and insight are intact. His affect is normal. DIAGNOSTICS: The patient's EKG done this morning shows 2:1 AV block, Mobitz type 1 AV block, Wenckebach, left anterior fascicular block, sinus rhythm. Subsequent to atropine, the patient's monitor strip shows first-degree AV block with no evidence of second degree AV block. Note that the patient took his last Coreg dose was taken the evening of 02/13/2017. Also the patient's Timoptic is on board and, hence, will stop this. The patient's white count is 9900, hemoglobin is 12.7, hematocrit is 40.3, platelet count is 187,000. The patient's sodium is 143.0, potassium 3.7, chloride is 108, CO2 is 23. The patient's BUN is 19, creatinine is 1.50, GFR is reduced at 56, which is chronic kidney disease stage 3A. His glucose is 126 and calcium is 8.7. IMPRESSION AND PLAN: 1. SECOND DEGREE AV BLOCK, MOBITZ TYPE 1, WITH STABLE BLOOD PRESSURE AND ASYMPTOMATIC. 2. VOLUME OVERLOAD CONGESTIVE HEART FAILURE, MOST LIKELY SECONDARY TO HIS RENAL FUNCTION DETERIORATION. At present no evidence of heart failure. The patient appears to be stable. It is not know whether the patient has systolic or diastolic component to the heart failure. Will need an echocardiogram. Echo has been ordered and will be done in the a.m. 3. HYPERTENSION SEEMS TO BE WELL CONTROLLED. 4. DIABETES MELLITUS TYPE 2, NON-INSULIN DEPENDENT WITH CHRONIC KIDNEY DISEASE. 5. DYSLIPIDEMIA. 6. CHRONIC KIDNEY DISEASE. At present stage 3. Continue the patient's Lasix. Continue other medications and the patient's Coreg has been stopped. We will also hold the patient's Timoptic since this can also cause bradycardia. Note, the patient was seen for 30 minutes, with more than 50% of the time spent on direct patient care. The patient's medications have been reviewed and medications are altered as per discussions with the attending physician. Also discussed with the attending physician. At present there is no need for permanent pacemaker. We will see how the patient behaves once all the beta-blockers have been held, both the topical eye solution and p.o. Coreg. Note: Continues to have highly complex medical decision making needed in this case. We will follow with you. Discussed with the attending on the case and formulated a management plan for this patient. Thanking you. DICTATING PHYSICIAN: EMMA FIORE M.D. [id number] PHY#: [id number] ID: [id number] JOB#: [id number] ACCT: [id number] cc: >
[2017-02-15] MEDS: ALLOPURINOL 300 MG TABLET PO SCH (17:43)
--- NOTE | 2017-02-15 18:04 | EKG REPORT ---
SEVERITY:- ABNORMAL ECG - PREDOMINANT 2:1 AV BLOCK MOBITZ I AV BLOCK (WENCKEBACH) LEFT ANTERIOR FASCICULAR BLOCK : Confirmed by: Apolinar Arango MD 15-Feb-2017 18:03:06
[2017-02-15] MEDS: LATANOPROST 0.005% OPH SOLN 2.5 ML OS SCH (21:19)
[2017-02-16] MEDS: HEPARIN SOD (PORCINE) 5,000 UNIT/ML 1 ML SYRINGE SUBCUT SCH ×3 (06:30→21:35)
--- NOTE | 2017-02-16 08:18 | EKG REPORT ---
SEVERITY:- ABNORMAL ECG - SINUS BRADYCARDIA SECOND DEGREE AV BLOCK 2:1 CONDUCTION LAD, CONSIDER LEFT ANTERIOR FASCICULAR BLOCK BORDERLINE T ABNORMALITIES, INFERIOR LEADS : Confirmed by: Apolinar Arango MD 16-Feb-2017 08:17:38
--- NOTE | 2017-02-16 09:17 | PDOC PROGRESS REPORT ---
Subjective Progress Note for:: 02/16/17 Subjective:: The patient states to feel well. He denies any syncopal episodes. His heart rate is still low but increase is with exertion. He denies any chest pain or shortness of breath Physical Exam Vital Signs: Temp Pulse Resp BP Pulse Ox 98.2 F 39 L 18 153/61 H 98 02/16/17 08:35 02/16/17 08:35 02/16/17 08:35 02/16/17 08:35 02/16/17 08:56 Intake & Output 02/15/17 02/16/17 02/17/17 06:59 06:59 06:59 Intake Total 1038 820 Output Total 2575 950 Balance -1537 -130 Weight 84.3 kg 83.2 kg General appearance: PRESENT: no acute distress Head exam: PRESENT: atraumatic Eye exam: PRESENT: conjunctiva pink Neck exam: ABSENT: carotid bruit Respiratory exam: PRESENT: clear to auscultation yuliya Cardiovascular exam: PRESENT: bradycardia Pulses: PRESENT: normal carotid pulses Vascular exam: PRESENT: normal capillary refill GI/Abdominal exam: PRESENT: normal bowel sounds, soft Extremities exam: PRESENT: full ROM. ABSENT: tenderness Musculoskeletal exam: PRESENT: full ROM Neurological exam: PRESENT: alert, awake Results Laboratory Results: 02/15/17 08:10 02/15/17 08:10 02/14/17 02/14/17 02/14/17 01:27 01:27 07:50 Creatine Kinase 69 55 CK-MB (CK-2) 1.08 Troponin I 0.016 02/14/17 02/14/17 02/14/17 07:50 14:12 14:12 Creatine Kinase 52 L CK-MB (CK-2) 0.72 0.73 Troponin I 0.017 0.013 Impressions: Chest X-Ray 02/13/17 19:20 IMPRESSION: Patchy airspace disease in the right lung base. No significant effusion. Mild interstitial thickening bilaterally. Assessment & Plan - Diagnosis (1) Second degree AV block, Mobitz type I Is this a current diagnosis for this admission?: YesPlan: Heart rate does increase with exertion and ambulation. Will continue holding beta blockers (2) Chronic kidney disease Qualifiers: Chronic kidney disease stage: stage 2 (mild) Qualified Code(s): N18.2 - Chronic kidney disease, stage 2 (mild) Is this a current diagnosis for this admission?: YesPlan: We will reconsult the nephrology. We will continue with diuretics. Will add Flomax (3) Urinary retention due to benign prostatic hyperplasia Is this a current diagnosis for this admission?: YesPlan: We will start Flomax (4) Pulmonary edema Qualifiers: Chronicity: acute Qualified Code(s): J81.0 - Acute pulmonary edema Is this a current diagnosis for this admission?: YesPlan: Continue diuretics and check BMP (5) Congestive heart failure Qualifiers: Congestive heart failure type: unspecified congestive heart failure type Congestive heart failure chronicity: acute Qualified Code(s): I50.9 - Heart failure, unspecified Is this a current diagnosis for this admission?: YesPlan: We will continue with diuretics
[2017-02-16] MEDS ORDERED: TAMSULOSIN HCL 0.4 MG CAP.SR.24H PO ONE (09:30)
[2017-02-16] MEDS: ENALAPRIL MALEATE 10 MG TABLET PO SCH ×2 (09:45→21:35)
[2017-02-16] MEDS: DOCUSATE SODIUM 100 MG CAPSULE PO SCH (09:45)
[2017-02-16] MEDS: ASPIRIN 81 MG TABLET, ENT COATED PO SCH (09:45)
[2017-02-16] MEDS: LISINOPRIL 10 MG TABLET PO SCH (09:46)
[2017-02-16] MEDS: FUROSEMIDE 40 MG TABLET PO SCH (09:46)
[2017-02-16] MEDS: ATORVASTATIN CALCIUM 10 MG TABLET PO SCH (09:46)
[2017-02-16] MEDS: DORZOLAMIDE HCL 2% OPH SOLN 10 ML OS SCH ×3 (09:46→17:42)
--- NOTE | 2017-02-16 12:23 | XCELERA REPORT ---
[address] [address] Transthoracic Echocardiogram Report Name: HARMONY RODRIGUEZ Age: 71 yrs Gender: Male : 1945 Patient Status: Inpatient Patient Location: 3S\S\335\S\A Study Date: 02/16/2017 09:55 AM Height: 72 in Weight: 185 lb BSA: 2.1 m2 Procedure: A two-dimensional transthoracic echocardiogram with color flow and Doppler was performed. Study Quality: Good. Reason For Study: MURMUR / CHF History: MURMUR / CHF. Ordering Physician: NANCY FIORE Performed By: Kinga Miller Interpretation Summary The left ventricle is normal in size. There is normal left ventricular wall thickness. LV EF is > than 65% Left ventricular systolic function is normal. The left ventricular wall motion is normal. There is no thrombus. The right ventricle is grossly normal size. The right ventricle is not well visualized secondary to technical limitations The right atrium is normal. The left atrial size is normal. The interatrial septum is intact with no evidence for an atrial septal defect. There is no evidence of mitral valve prolapse. There is no vegetation seen on the mitral valve. There is no mitral valve stenosis. There is a moderate amount of mitral regurgitation There is no aortic valvular vegetation. There is no aortic valve stenosis There is no LVOT obstruction. There is a trace amount of aortic regurgitation There is no tricuspid stenosis. There is a mild amount of tricuspid regurgitation There is mild pulmonary hypertension by echo RVSP is 37 to 42 mm of Hg ,with RA mean of 5 to 10. The aortic root is normal size. The inferior vena cava appeared normal and decreased > 50% with respiration (RAP 5-10 mmHg) There is no pericardial effusion. MMode/2D Measurements \T\ Calculations RVDd: 3.4 cm LVIDd: 5.3 cm FS: 41.3 % MV Diam: 2.3 cm IVSd: 1.00 cm LVIDs: 3.1 cm EDV(Teich): 136.1 ml LVPWd: 1.0 cm ESV(Teich): 38.4 ml EF(Teich): 71.8 % Ao root diam: 3.5 cm LVOT diam: 2.2 cm Ao root area: 9.5 [id number] area: 3.8 cm2 LA dimension: 3.6 cm Doppler Measurements \T\ Calculations MV E max simona: MV area (1 diam): MV P1/2t max simona: Ao V2 max: 71.7 cm/sec 4.2 cm2 71.7 cm/sec 169.9 cm/sec MV A max simona: MV Flow area MV P1/2t: 74.7 msec Ao max P.8 cm/sec (1diam): 4.2 cm2 MVA(P1/2t): 2.9 cm2 11.5 mmHg MV E/A: 0.85 MV dec slope: MILE(V,D): 3.6 cm2 281.4 cm/sec2 LV V1 max PG: MR max simona: PA V2 max: TR max simona: 10.4 mmHg 584.9 cm/sec 114.0 cm/sec 279.9 cm/sec LV V1 max: MR max PG: PA max P.2 mmHg TR max P.4 cm/sec 136.8 mmHg 31.3 mmHg LV dP/dt: 909.0 mmHg/s Left Ventricle The left ventricle is normal in size. There is normal left ventricular wall thickness. LV EF is > than 65%. Left ventricular systolic function is normal. Doppler measurements suggest impaired left ventricular relaxation, which is associated with grade I/IV or mild diastolic dysfunction. The left ventricular wall motion is normal. There is no thrombus. Right Ventricle The right ventricle is grossly normal size. The right ventricle is not well visualized secondary to technical limitations. Atria The right atrium is normal. The left atrial size is normal. The interatrial septum is intact with no evidence for an atrial septal defect. Mitral Valve There is mild mitral annular calcification. There is no evidence of mitral valve prolapse. There is no vegetation seen on the mitral valve. There is no mitral valve stenosis. There is a moderate amount of mitral regurgitation. Aortic Valve There is no aortic valvular vegetation. There is no aortic valve stenosis. There is no LVOT obstruction. There is a trace amount of aortic regurgitation. Tricuspid Valve There is no tricuspid stenosis. There is a mild amount of tricuspid regurgitation. There is mild pulmonary hypertension by echo. RVSP is 37 to 42 mm of Hg ,with RA mean of 5 to 10. Pulmonic Valve There is no pulmonic valvular stenosis. There is no pulmonic valvular regurgitation. Great Vessels The aortic root is normal size. The inferior vena cava appeared normal and decreased > 50% with respiration (RAP 5-10 mmHg). Effusions There is no pericardial effusion. : NANCY FIORE > Nancy Fiore
--- NOTE | 2017-02-16 15:23 | PROGRESS NOTE E ---
Progress Note NAME: HARMONY RODRIGUEZ : 1945 AGE: 71Y DATE: 02/16/2017 ROOM: 335 SUBJECTIVE: The patient denies any chest pain or discomfort. There is no PND or orthopnea. There is no leg edema. The patient denies any anginal symptoms. There is no dizziness, near syncope or syncope. The patient continues to be in Mobitz type 1 Wenckebach second degree AV block, with the heart rate being in the 30s to low 40s; but, when he ambulates or exerts himself, it increased with activity and the heart rate goes into the 60s. His blood pressure is stable and the patient is asymptomatic. There is no TIA or CVA symptoms. OBJECTIVE: GENERAL: On examination, the patient is well built and well nourished, in no acute distress. VITAL SIGNS: He is afebrile with a temperature of 98.2 degrees Fahrenheit, his respirations are 18 per minute, 02 sats are 98% on room air. His heart rate is 43 beats per minute. Monitor shows Mobitz type 1 Wenckebach second degree AV block. His blood pressure is 153/61. HEAD: Atraumatic, normocephalic. EYES: Pupils are equal, round, regular and reactive to light and accommodation. Extraocular movements are normal. There is no conjunctival pallor. There is no scleral icterus. ENT: Negative. NECK: Supple. There is no JVD. Carotids are equal. There is no bruit. There is no goiter. Trachea is central. There is no lymphadenopathy. There are no accessory muscles of respiration in use. LUNGS: Clear to auscultation and percussion. There is no chest wall tenderness. HEART: S1 and S2 are heard. There is no S3 gallop. There is no S4 gallop. There is a systolic murmur in the left sternal border and the apex. There are no rub. ABDOMEN: Soft, nontender. There is no hepatosplenomegaly. Bowel sounds are well heard. There are no tender areas or masses. EXTREMITIES: Femorals are slightly diminished. There are no femoral bruits. Leg pulses are well felt. There is no pedal edema. There is no cyanosis or clubbing. There is no DVT or cellulitis. There is no calf tenderness. CENTRAL NERVOUS SYSTEM: The patient is conscious, awake, alert, oriented x3, with no focal deficits. PSYCHIATRIC: The patient's judgment and insight are intact. His affect is normal. DIAGNOSTICS: The patient's EKG shows second degree AV block type 1 Wenckebach left anterior fascicular block. The patient's echocardiogram shows the left ventricle is normal in size. There is normal LVH. The LV ejection fraction is greater than 65%. The left ventricular systolic function is normal. The left ventricular wall motion is normal. There is no thrombus. The right ventricular size is grossly normal in size. There is LV diastolic dysfunction by Doppler measurements, which is mild, grade 1. There is mitral annular calcification. There is no evidence of mitral stenosis. There is no vegetation seen on the mitral valve. There is no mitral valve stenosis. There is moderate amount of mitral regurgitation. There is no mitral valve prolapse. The aortic valve is without any aortic stenosis. There is trace aortic regurgitation present. There is a mild amount of tricuspid stenosis. There is mild pulmonary hypertension by echo. The right ventricular systolic pressure is 37 mmHg to 42 mmHg with RA mean of 5-10. There is no pericardial effusion. Echo discussed with the patient. IMPRESSION: 1. SECOND DEGREE AV BLOCK, MOBITZ TYPE 1, WITH STABLE BLOOD PRESSURE AND ASYMPTOMATIC. I would recommend that the patient have an exercise treadmill Cardiolite stress test to see if there is any chronotropic incompetence or if the heart rate coming up the patient's AV block dissipates or resolves. Also, will get a Cardiolite if 85% of the patient's maximum pressure heart rate is achieved to make sure the patient has no coronary artery disease. 2. CONGESTIVE HEART FAILURE, AT PRESENT COMPENSATED. This is most likely diastolic congestive heart failure secondary to volume overload due to chronic kidney disease. 3. HYPERTENSION. Blood pressure is borderline controlled. 4. DIABETES MELLITUS TYPE 2, NON-INSULIN DEPENDENT, WITH CHRONIC KIDNEY DISEASE. 5. DYSLIPIDEMIA. 6. CHRONIC KIDNEY DISEASE. RECOMMENDATIONS: Continue current treatment. As mentioned earlier, will schedule the patient for exercise Cardiolite stress test in the a.m. to look for presence of chronotropic incompetence, if any, and also to look for ischemia/coronary artery disease extent, if any. NOTE: Thirty-five minutes spent on this patient with more than 50% of the time spent on direct patient care. Medications have been reviewed and discussed with other caregiving providers on the case and formulating a management plan for the patient. This involved highly complex medical decision making in view of the need for stress test and need to prove that the patient has no chronotropic incompetence. If the patient does have chronotropic incompetence, then would recommend that the patient have a permanent pacemaker. This has been discussed with the patient. Thanking you. Will follow with you. DICTATING PHYSICIAN: EMMA FIORE M.D. [id number] PHY#: [id number] ID: [id number] JOB#: [id number] ACCT: [id number] cc: >
[2017-02-16] MEDS: ALLOPURINOL 300 MG TABLET PO SCH (17:42)
--- NOTE | 2017-02-16 19:14 | PDOC CONSULTATION ---
Consultation Consult Date: 02/16/17 Consult reason:: CKD 3 History of Present Illness Admission Date/PCP: 02/13/17 22:11 SHAWN HERNANDEZ, History of Present Illness: HARMONY RODRIGUEZ is a 71 year old male with a past medical history of hypertension, gout and chronic kidney disease 2 with base creatinine around 1.5 who had been in his usual state of health until approximately 4 days prior to presentation with shortness of breath with exertion and orthopnea and progressive pedal edema. He denies recent chest, back or abdominal pain, palpitations nausea or vomiting. No h/o pre syncope. No h/o fever or chills.He also denies recent change in medications and or diet. In the emergency room he is found to have volume overload with a second-degree heart block with bradycardia. he was begun on Lasix and currently he is lots better as regards to his congestive heart failure. Has been diagnosed with Mobitz type II block and is being evaluated by Dr. Haynes/cardiology. Labs were reviewed which show stable renal numbers. Past Medical History Cardiac Medical History: Reports: Hypertension-primary Renal/ Medical History: Reports: Chronic Kidney Disease Stage III Musculoskeltal Medical History: Reports: Gout Past Surgical History Past Surgical History: Reports: Orthopedic Surgery - lt knee replacement, Tonsillectomy Social History Lives with: Spouse/Significant other Smoking Status: Never Smoker Frequency of Alcohol Use: None Hx Recreational Drug Use: No Drugs: None Hx Prescription Drug Abuse: No - Advance Directive Resuscitation Status: Full Code Family History Parental Family History Reviewed: Yes - negative for ckd Children Family History Reviewed: No Sibling(s) Family History Reviewed.: No Medication/Allergy Home Medications: Allopurinol [Zyloprim 300 mg Tablet] 300 mg PO QPM 02/14/17 Amlodipine Besylate [Norvasc 5 mg Tablet] 5 mg PO BID 02/14/17 Aspirin [Adult Low Dose Aspirin EC] 81 mg PO DAILY 02/14/17 Atorvastatin Calcium [Lipitor 10 mg Tablet] 10 mg PO DAILY 02/14/17 Brimonidine Tartrate/Timolol [Combigan 0.2%-0.5% Eye Drops] 1 drop OS BID Dorzolamide HCl [Trusopt Plus 2% Oph Soln 10 ml] 1 drop OS TID 02/14/17 Latanoprost [Xalatan 0.005% Oph Soln 2.5 ml] 1 drop OS QHS 02/14/17 Lisinopril [Prinivil 40 mg Tablet] 40 mg PO DAILY 02/14/17 Allergies/Adverse Reactions: No Known Allergies Allergy (Verified 02/13/17 18:57) Review of Systems Review of Systems: Constitutional: [PRESENT: as per HPI. ABSENT: chills, fever(s), headache(s), weight gain, weight loss] Eyes: [ABSENT: visual disturbances] Ears: [ABSENT: hearing changes] Cardiovascular: [ABSENT: chest pain, palpitations] Respiratory: [ABSENT: cough, hemoptysis] Gastrointestinal: [ABSENT: abdominal pain, constipation, diarrhea, hematemesis, hematochezia, nausea, vomiting] Genitourinary: [ABSENT: dysuria, hematuria] Musculoskeletal: [ABSENT: joint swelling] Integumentary: [ABSENT: rash, wounds] Neurological: [ABSENT: abnormal gait, abnormal speech, confusion, dizziness, focal weakness, syncope] Psychiatric: [ABSENT: anxiety, depression, homicidal ideation, suicidal ideation ] Endocrine: [ABSENT: cold intolerance, heat intolerance,, polydipsia, polyuria] Hematologic/Lymphatic: [ABSENT: easy bleeding, easy bruising, lymphadenopathy] Physical Exam Vital Signs: Temp Pulse Resp BP Pulse Ox 97.8 F 29 L 17 155/56 H 97 02/16/17 16:00 02/16/17 16:00 02/16/17 16:00 02/16/17 16:00 02/16/17 16:00 Intake & Output 02/15/17 02/16/17 02/17/17 06:59 06:59 06:59 Intake Total 1038 820 375 Output Total 2575 950 Balance -1537 -130 375 Weight 84.3 kg 83.2 kg General appearance: PRESENT: no acute distress Eye exam: PRESENT: conjunctiva pink, EOMI, PERRLA Ear exam: PRESENT: normal external ear exam Mouth exam: PRESENT: moist, neck supple Neck exam: ABSENT: lymphadenopathy, meningismus, tenderness, thyromegaly, tracheal deviation Respiratory exam: PRESENT: clear to auscultation yuliya. ABSENT: crackles, rhonchi Cardiovascular exam: PRESENT: +S1, +S2 GI/Abdominal exam: PRESENT: normal bowel sounds, soft. ABSENT: organomegaly, tenderness Extremities exam: PRESENT: pedal edema, +1 edema Neurological exam: PRESENT: alert, awake, oriented to person, oriented to place , oriented to time Skin exam: ABSENT: erythema, mottled, rash Results Laboratory Results: 02/15/17 08:10 02/15/17 08:10 02/14/17 02/14/17 02/14/17 01:27 01:27 07:50 Creatine Kinase 69 55 CK-MB (CK-2) 1.08 Troponin I 0.016 02/14/17 02/14/17 02/14/17 07:50 14:12 14:12 Creatine Kinase 52 L CK-MB (CK-2) 0.72 0.73 Troponin I 0.017 0.013 Impressions: Chest X-Ray 02/13/17 19:20 IMPRESSION: Patchy airspace disease in the right lung base. No significant effusion. Mild interstitial thickening bilaterally. Assessment & Plan - Diagnosis (1) CKD (chronic kidney disease) stage 3, GFR 30-59 ml/min Plan: Patient at baseline as far as renal functions are concerned. I would continue on present lines of management while he is being worked up for his cardiac conduction abnormalities. (2) Hypertension Qualifiers: Hypertension type: unspecified Qualified Code(s): I10 - Essential ( primary) hypertension Is this a current diagnosis for this admission?: YesPlan: Relatively stable. Monitor. (3) Second degree AV block, Mobitz type I Is this a current diagnosis for this admission?: YesPlan: As per cardiology. (4) Congestive heart failure Qualifiers: Congestive heart failure type: unspecified congestive heart failure type Congestive heart failure chronicity: acute Qualified Code(s): I50.9 - Heart failure, unspecified Is this a current diagnosis for this admission?: YesPlan: Improved with current management.
[2017-02-16] MEDS: LATANOPROST 0.005% OPH SOLN 2.5 ML OS SCH (21:34)
[2017-02-17] MEDS: HEPARIN SOD (PORCINE) 5,000 UNIT/ML 1 ML SYRINGE SUBCUT SCH ×3 (05:11→22:00)
[2017-02-17 05:14] LABS: ABSOLUTE BASOPHILS # (AUTO) 0.1 10^3/uL (0.0-0.2); ABSOLUTE EOSINOPHILS # (AUTO) 0.3 10^3/uL (0.0-0.6); ABSOLUTE LYMPHOCYTES (AUTO) 1.6 10^3/uL (0.5-4.7); ABSOLUTE MONOCYTES (AUTO) 1.3 10^3/uL (0.1-1.4); ABSOLUTE NEUT (AUTO) 7.4 10^3/uL (1.7-8.2); BASOPHILS % (AUTO) 0.8 % (0-2); EOSINOPHILS % (AUTO) 3.2 % (0-6); HEMATOCRIT 38.4 % (37.9-51.0); HEMOGLOBIN 12.1 g/dL (13.5-17.0); HGB HCT DIFFERENCE -2.1; LYMPHOCYTES % (AUTO) 15.1 % (13-45); MEAN CORPUSCULAR HEMOGLOBIN 25.8 pg (27.0-33.4); MEAN CORPUSCULAR HGB CONC 31.6 g/dL (32.0-36.0); MEAN CORPUSCULAR VOLUME 82 fl (80-97); MONOCYTES % (AUTO) 11.7 % (3-13); RED CELL DISTRIBUTION WIDTH 17.7 % (11.5-14.0); SEGMENTED NEUTROPHILS % (AUTO) 69.2 % (42-78); WHITE BLOOD COUNT 10.7 10^3/uL (4.0-10.5)
[2017-02-17 05:31] LABS: ALANINE AMINOTRANSFERASE 44 U/L (21-72); ALBUMIN 3.3 g/dL (3.5-5.0); ALKALINE PHOSPHATASE 88 U/L (38-126); ANION GAP 10 (5-19); ASPARTATE AMINO TRANSFERASE 33 U/L (17-59); BILIRUBIN,DIRECT 0.2 mg/dL (0.0-0.4); BILIRUBIN,TOTAL 0.6 mg/dL (0.2-1.3); BLOOD UREA NITROGEN 22 mg/dL (7-20); CALCIUM 8.6 mg/dL (8.4-10.2); CARBON DIOXIDE 21 mmol/L (22-30); CHLORIDE 109 mmol/L (98-107); GLUCOSE 124 mg/dL (75-110); MAGNESIUM 1.8 mg/dL (1.6-2.3); POTASSIUM 3.5 mmol/L (3.6-5.0); SODIUM 140.3 mmol/L (137-145); TOTAL PROTEIN 6.8 g/dL (6.3-8.2)
--- NOTE | 2017-02-17 07:52 | EKG REPORT ---
SEVERITY:- ABNORMAL ECG - SINUS BRADYCARDIA SECOND DEGREE AV BLOCK 2: 1 CONDUCTION. LEFT ANTERIOR FASCICULAR BLOCK PROBABLE ANTEROSEPTAL INFARCT, AGE INDETERM : Confirmed by: Apolinar Arango MD 17-Feb-2017 07:51:42
--- NOTE | 2017-02-17 12:21 | PDOC PROGRESS REPORT ---
Subjective Progress Note for:: 02/17/17 Subjective:: The patient states to feel much better. He was able to ambulate without any syncopal episodes. He is presently scheduled for an exercise stress test by the cardiology. Physical Exam Vital Signs: Temp Pulse Resp BP Pulse Ox 98.2 F 39 L 19 153/67 H 100 02/17/17 07:49 02/17/17 07:49 02/17/17 07:49 02/17/17 07:49 02/17/17 07:49 Intake & Output 02/16/17 02/17/17 02/18/17 06:59 06:59 06:59 Intake Total 820 585 Output Total 950 Balance -130 585 Weight 83.2 kg 82.4 kg General appearance: PRESENT: no acute distress Head exam: PRESENT: atraumatic Eye exam: PRESENT: conjunctiva pink Neck exam: ABSENT: carotid bruit Respiratory exam: PRESENT: clear to auscultation yuliya Cardiovascular exam: PRESENT: bradycardia Pulses: PRESENT: +1 pedal pulses bilateral Vascular exam: PRESENT: normal capillary refill GI/Abdominal exam: PRESENT: normal bowel sounds, soft Extremities exam: PRESENT: full ROM Musculoskeletal exam: PRESENT: ambulatory Neurological exam: PRESENT: alert, awake, oriented to time Results Laboratory Results: 02/17/17 04:49 02/17/17 04:49 02/17/17 02/17/17 04:49 04:49 WBC 10.7 H RBC 4.70 Hgb 12.1 L Hct 38.4 MCV 82 MCH 25.8 L MCHC 31.6 L RDW 17.7 H Plt Count 149 L Seg Neutrophils % 69.2 Lymphocytes % 15.1 Monocytes % 11.7 Eosinophils % 3.2 Basophils % 0.8 Absolute Neutrophils 7.4 Absolute Lymphocytes 1.6 Absolute Monocytes 1.3 Absolute Eosinophils 0.3 Absolute Basophils 0.1 Sodium 140.3 Potassium 3.5 L Chloride 109 H Carbon Dioxide 21 L Anion Gap 10 BUN 22 H Creatinine 1.40 H Est GFR ( Amer) > 60 Est GFR (Non-Af Amer) 50 L Glucose 124 H Calcium 8.6 Magnesium 1.8 Total Bilirubin 0.6 AST 33 ALT 44 Alkaline Phosphatase 88 Total Protein 6.8 Albumin 3.3 L 02/14/17 02/14/17 02/14/17 01:27 01:27 07:50 Creatine Kinase 69 55 CK-MB (CK-2) 1.08 Troponin I 0.016 NT-Pro-B Natriuret Pep 02/14/17 02/14/17 02/14/17 07:50 14:12 14:12 Creatine Kinase 52 L CK-MB (CK-2) 0.72 0.73 Troponin I 0.017 0.013 NT-Pro-B Natriuret Pep 02/17/17 04:49 Creatine Kinase CK-MB (CK-2) Troponin I NT-Pro-B Natriuret Pep 597 Impressions: Chest X-Ray 02/13/17 19:20 IMPRESSION: Patchy airspace disease in the right lung base. No significant effusion. Mild interstitial thickening bilaterally. Assessment & Plan - Diagnosis (1) Second degree AV block, Mobitz type I Is this a current diagnosis for this admission?: YesPlan: Heart rate improved with atropine and exertion. We will obtain a stress test and consider pacemaker if needed (2) Chronic kidney disease Qualifiers: Chronic kidney disease stage: stage 2 (mild) Is this a current diagnosis for this admission?: YesPlan: Stable continue current medications (3) Urinary retention due to benign prostatic hyperplasia Is this a current diagnosis for this admission?: Yes (4) Pulmonary edema Qualifiers: Chronicity: acute Qualified Code(s): J81.0 - Acute pulmonary edema Is this a current diagnosis for this admission?: YesPlan: Continue diuretics and check BMP (5) Congestive heart failure Qualifiers: Congestive heart failure type: unspecified congestive heart failure type Congestive heart failure chronicity: acute Qualified Code(s): I50.9 - Heart failure, unspecified Is this a current diagnosis for this admission?: YesPlan: We will continue with diuretics
[2017-02-17] MEDS ORDERED: ATROPINE SULFATE INJ 1 MG/10 ML DISP.SYRIN IV ONE (12:30)
[2017-02-17] MEDS: LISINOPRIL 10 MG TABLET PO SCH ×2 (12:34→23:38)
[2017-02-17] MEDS: ATORVASTATIN CALCIUM 10 MG TABLET PO SCH (12:35)
[2017-02-17] MEDS: ASPIRIN 81 MG TABLET, ENT COATED PO SCH (12:35)
[2017-02-17] MEDS: ENALAPRIL MALEATE 10 MG TABLET PO SCH (12:35)
[2017-02-17] MEDS: FUROSEMIDE 40 MG TABLET PO SCH (12:36)
[2017-02-17] MEDS: DOCUSATE SODIUM 100 MG CAPSULE PO SCH (12:36)
[2017-02-17] MEDS: DORZOLAMIDE HCL 2% OPH SOLN 10 ML OS SCH ×3 (12:38→18:39)
--- NOTE | 2017-02-17 15:19 | PROGRESS NOTE E ---
Progress Note NAME: HARMONY RODRIGUEZ : 1945 AGE: 71Y DATE: 02/17/2017 ROOM: 335 SUBJECTIVE: Of note, the patient was seen prior to and after the stress testing. After the stress testing the patient noted distress. OBJECTIVE: VITAL SIGNS: He was afebrile with a temperature of 97.6 degrees Fahrenheit, his pulse was 76 beats per minute, blood pressure was 149/75, respirations were 19 per minute, and O2 sats were 90% on room air. HEENT: Head is atraumatic, normocephalic. Eyes - Pupils are equal, round, regular, reactive to light and accommodation. Extraocular movements are normal. There is no conjunctival pallor. There is no scleral icterus. ENT is negative. NECK: Supple. There is no JVD. Carotids are equal. There is no bruit. There is no goiter. Trachea is central. There is no lymphadenopathy. There are no accessory muscles of respiration in use. LUNGS: Clear to auscultation and percussion. There is no chest wall tenderness. HEART: S1 and S2 is heard. There is no S3 gallop. There is no S4 gallop. There is a murmur of mitral regurgitation heard in the apex of the left ventricle with radiation to the left axilla. There is no S3 or S4 gallop. There is no rub. ABDOMEN: Soft, nontender. There is no hepatosplenomegaly. Bowel sounds are well heard. There are no tender areas of masses. EXTREMITIES: Femorals are diminished. There are no femoral bruits. Leg pulses are well felt. There is no pedal edema. There is no DVT or cellulitis. There is no calf tenderness. CENTRAL NERVOUS SYSTEM: The patient is conscious, awake, alert, oriented x3 with no focal deficits. PSYCHIATRIC: The patient's judgement and insight are intact. His affect is normal. DIAGNOSTICS: The patient's EKG shows sinus bradycardia with second-degree AV block two-to-one conduction. Borderline poor R-wave V1 to V3 most likely secondary to lead placement. The patient's white count is 7700, hemoglobin is 12.1, hematocrit is 38.4, and platelet count is 149,000. The patient's sodium is 140.3, potassium is 3.5, chloride is 109, CO2 is 21. The patient's BUN is 22, creatinine is 1.40, GFR now is normal at greater than 60. His liver function tests are normal. His albumin is 3.3, total protein is 6.8. His NT-proBNP has come down to 597. Of note, the patient underwent an exercise treadmill stress Cardiolite this morning. Under 2 minutes his heart rate did go up to 103 beats per minute, but since the target was 85% of maximum predicted heart rate of 129 beats per minute the patient was given 1 mg of atropine while he was still exercising and he exercised for a total of 4 minutes and 33 seconds and reached a peak heart rate of 137 beats per minute, which is 92% of maximum predicted heart rate. The patient when his heart rate was up went from second-degree AV block to first-degree AV block. His blood pressure response was hypertensive. His peak blood pressure was 200/99. There was 1-mm ST-segment depression in leads V5, V6; I am not sure if this is diagnostic of ischemia. The Cardiolite images showed that there was no reversible ischemia and no scar. This was discussed with the patient. IMPRESSION: 1. SECOND-DEGREE AV BLOCK, MOBITZ TYPE 1, WITH STABLE BLOOD PRESSURE AND ALSO TWO-TO-ONE CONDUCTION MOST LIKELY SECONDARY TO MOBITZ TYPE 1 CONDUCTION PROBLEM. Note, the patient has no chronotropic incompetence since the heart rate did go up to 103 with exercise. As the patient is asymptomatic, at present would not require temporary or permanent pacemaker but later would require 30-day event monitor to assure that the patient does not have any other major problems. 2. CONGESTIVE HEART FAILURE, AT PRESENT COMPENSATED. This is most likely diastolic heart failure and also secondary to volume overload due to chronic kidney disease. 3. HYPERTENSION. Blood pressure is well controlled. 4. DIABETES MELLITUS, TYPE 2, NONINSULIN DEPENDENT, WITH CHRONIC KIDNEY DISEASE. 5. DYSLIPIDEMIA. 6. CHRONIC KIDNEY DISEASE, AT PRESENT GFR HAS GONE BACK TO NORMAL. 7. MODERATE MITRAL REGURGITATION. RECOMMENDATIONS: Continue current treatment. The stress test results were discussed with the patient. Would continue the patient on aspirin, allopurinol, atorvastatin, Colace, enalapril, and Lasix 40 mg p.o. daily has been added. Continue lisinopril at 40 mg p.o. daily. Will stop the patient's Vasotec and continue the patient on lisinopril. NOTE: Thirty-five minutes were spent on this patient with more than 50% of the time spent on direct patient care and also discussing with the patient the stress test findings and that at present he does not require a temporary or permanent pacemaker, but he needs to be monitored with a 30-day event monitor as an outpatient when he does his usual activities to make sure that there is no other bradycardic problems. Would also get bilateral renal artery Dopplers to make sure the patient does not have renal artery stenosis. Note: Highly complex medical decision making required for this case. Discussed with the patient and discussed with Dr. Milian. Note: The medications have been reviewed and medications adjusted. I will follow with you. DICTATING PHYSICIAN: EMMA FIORE M.D. [id number] MIKIE#: [id number] ID: [id number] JOB#: [id number] ACCT: [id number] cc: >
[2017-02-17] MEDS: ALLOPURINOL 300 MG TABLET PO SCH (18:38)
[2017-02-17] MEDS: LATANOPROST 0.005% OPH SOLN 2.5 ML OS SCH (22:00)
--- NOTE | 2017-02-18 05:34 | RADIOLOGY REPORT (SQ) ---
EXAM DESCRIPTION: DUPLEX ART/FRIDA FLOW COMPLETE COMPLETED DATE/TIME: 02/18/2017 5:16 am REASON FOR STUDY: VIRGIL, CKD. COMPARISON: None. TECHNIQUE: Grayscale images acquired. Selected color Doppler, velocities and spectral images recorde d. LIMITATIONS: None. FINDINGS: RIGHT KIDNEY: RENAL ARTERY VELOCITIES: 80.4 cm/sec. Segmental artery velocity 65.2 cm/sec. RENAL VEIN: Color Doppler flow present, patent. VELOCITY RATIO: 0.55. Normal waveforms. KIDNEY: Measures 10.5 cm in length. No hydronephrosis. There is a complex cystic area with internal carver al septations at the inferior pole of the right kidney measuring 2.9 x 2.3 x 2.8 cm. LEFT KIDNEY: RENAL ARTERY VELOCITIES: 76.4 cm/sec. Segmental artery velocity 65.9 cm/sec. RENAL VEIN: Color Doppler flow present, patent. VELOCITY RATIO: 0.52. Normal waveforms. KIDNEY: Measures 10.1 cm in length. No hydronephrosis. There is a 1.3 x 1.5 x 1.1 cm cyst at the inferior pole of the left kidney. IMPRESSION: No Doppler evidence of hemodynamically significant renal artery stenosis. 2.9 cm complex cystic area with internal septations at the inferior pole of the right kidney, cystic neoplasm cannot be excluded. Further evaluation with dedicated CT or MRI recommended. COMMENT: NORMAL RENAL ARTERY/AORTA VELOCITY RATIO IS LESS THAN OR EQUAL TO 3.5. TECHNICAL DOCUMENTATION: JOB ID: [id number] [id number] 2010 [employer]- All Rights Reserved
[2017-02-18 06:01] LABS: ANION GAP 13 (5-19); BLOOD UREA NITROGEN 23 mg/dL (7-20); CARBON DIOXIDE 21 mmol/L (22-30); CHLORIDE 108 mmol/L (98-107); CREATININE RESULT 1.56 mg/dL (0.52-1.25); GLUCOSE 115 mg/dL (75-110); POTASSIUM 3.6 mmol/L (3.6-5.0); SODIUM 141.6 mmol/L (137-145)
[2017-02-18] MEDS: HEPARIN SOD (PORCINE) 5,000 UNIT/ML 1 ML SYRINGE SUBCUT SCH (07:19)
--- NOTE | 2017-02-18 08:16 | PDOC DISCHARGE SUMMARY ---
General - Admit/Disc Date/PCP Admission Date/Primary Care Provider: 02/13/17 22:11 SHAWN HERNANDEZ, Discharge Date: 02/18/17 - Discharge Diagnosis (1) Second degree AV block, Mobitz type I Is this a current diagnosis for this admission?: YesSummary: The patient is asymptomatic with his bradycardia at rest. His heart rate increases with atropine and exercise. His stress test was unremarkable. Discussed with cardiology. Will place a 24-48 hour Holter monitor and discuss with control supervisor. (2) Chronic kidney disease Is this a current diagnosis for this admission?: YesSummary: Stable continue follow-up with Dr. Whitt (3) Urinary retention due to benign prostatic hyperplasia Is this a current diagnosis for this admission?: Yes (4) Pulmonary edema Is this a current diagnosis for this admission?: Yes (5) Congestive heart failure Is this a current diagnosis for this admission?: YesSummary: Result with some diureses - Additional Information Resuscitation Status: Full Code Discharge Diet: As Tolerated Discharge Activity: Activity As Tolerated Home Medications: Allopurinol [Zyloprim 300 mg Tablet] 300 mg PO QPM 02/14/17 Aspirin [Adult Low Dose Aspirin EC] 81 mg PO DAILY 02/14/17 Atorvastatin Calcium [Lipitor 10 mg Tablet] 10 mg PO DAILY 02/14/17 Latanoprost [Xalatan 0.005% Oph Soln 2.5 ml] 1 drop OS QHS 02/14/17 Lisinopril [Prinivil 40 mg Tablet] 40 mg PO DAILY 02/14/17 History of Present Illness History of Present Illness: HARMONY RODRIGUEZ is a 71 year old male Hospital Course Hospital Course: The patient did well during hospitalization. His heart rate at rest and during sleep has remained in the low 40s. It has increased with exertion and during the stress test. His ultrasound of the kidney did not show any renal artery stenosis. His creatinine has remained stable. He was seen by cardiology and nephrology. Physical Exam Vital Signs: Temp Pulse Resp BP Pulse Ox 98.8 F 35 L 20 149/66 H 99 02/18/17 04:18 02/18/17 04:18 02/18/17 04:18 02/18/17 04:18 02/18/17 04:18 Intake & Output 02/17/17 02/18/17 02/19/17 06:59 06:59 06:59 Intake Total 585 742 Balance 585 742 Weight 82.4 kg 82.5 kg General appearance: PRESENT: no acute distress Head exam: PRESENT: atraumatic Eye exam: PRESENT: conjunctiva pink Neck exam: ABSENT: carotid bruit Respiratory exam: PRESENT: clear to auscultation yuliya Cardiovascular exam: PRESENT: bradycardia Pulses: PRESENT: +1 pedal pulses bilateral Vascular exam: PRESENT: normal capillary refill GI/Abdominal exam: PRESENT: normal bowel sounds, soft Extremities exam: PRESENT: full ROM Musculoskeletal exam: PRESENT: ambulatory Neurological exam: PRESENT: alert, awake Results Laboratory Results: 02/17/17 04:49 02/18/17 04:49 02/18/17 04:49 Sodium 141.6 Potassium 3.6 Chloride 108 H Carbon Dioxide 21 L Anion Gap 13 BUN 23 H Creatinine 1.56 H Est GFR ( Amer) 53 L Est GFR (Non-Af Amer) 44 L Glucose 115 H Calcium 9.0 02/14/17 02/14/17 02/14/17 01:27 01:27 07:50 Creatine Kinase 69 55 CK-MB (CK-2) 1.08 Troponin I 0.016 NT-Pro-B Natriuret Pep 02/14/17 02/14/17 02/14/17 07:50 14:12 14:12 Creatine Kinase 52 L CK-MB (CK-2) 0.72 0.73 Troponin I 0.017 0.013 NT-Pro-B Natriuret Pep 02/17/17 04:49 Creatine Kinase CK-MB (CK-2) Troponin I NT-Pro-B Natriuret Pep 597 Impressions: Chest X-Ray 02/13/17 19:20 IMPRESSION: Patchy airspace disease in the right lung base. No significant effusion. Mild interstitial thickening bilaterally. Plan Time Spent: Greater than 30 Minutes
[2017-02-18 08:39] VITALS: BP 146/61
[2017-02-18] MEDS: FUROSEMIDE 40 MG TABLET PO SCH (09:40)
[2017-02-18] MEDS: LISINOPRIL 10 MG TABLET PO SCH (09:40)
[2017-02-18] MEDS: DOCUSATE SODIUM 100 MG CAPSULE PO SCH (09:40)
[2017-02-18] MEDS: ATORVASTATIN CALCIUM 10 MG TABLET PO SCH (09:41)
[2017-02-18] MEDS: ASPIRIN 81 MG TABLET, ENT COATED PO SCH (09:41)
[2017-02-18] MEDS: DORZOLAMIDE HCL 2% OPH SOLN 10 ML OS SCH (09:41)
--- NOTE | 2017-02-18 13:44 | PROGRESS NOTE E ---
Progress Note NAME: HARMONY RODRIGUEZ : 1945 AGE: 71Y DATE: 02/18/2017 ROOM: 335 SUBJECTIVE: The patient denies any chest pain or discomfort. He continues to be bradycardic, but with a stable blood pressure. He denies any PND or orthopnea. There is no chest pain or discomfort. There is no arrhythmia seen on the monitor, except for the second-degree 2:1 AV conduction, second-degree AV block. OBJECTIVE: GENERAL: On examination, the patient is in no acute distress. He is well groomed. VITAL SIGNS: He is afebrile with a temperature of 98.2 degrees Fahrenheit, pulse is 38 beats per minute, blood pressure was 146/61, respirations are 19 per minute, O2 sats are 99% on room air. HEENT: Head is atraumatic, normocephalic. Eyes - Pupils are equal, round, regular, reactive to light and accommodation. Extraocular movements are normal. There is no conjunctival pallor. There is no scleral icterus. ENT is negative. NECK: Supple. There is no JVD. Carotids are equal. There is no bruit. There is no goiter. Trachea is central. There is no lymphadenopathy. There are no accessory muscles of respiration in use. LUNGS: Clear to auscultation and percussion. There is no chest wall tenderness. HEART: S1 and S2 is heard. There is no S3 gallop. There is no S4 gallop. There is a murmur of mitral regurgitation heard in the apex of the left ventricle with radiation to the left axilla. There is no S3 or S4 gallop. There is no rub. ABDOMEN: Soft, nontender. There is no hepatosplenomegaly. Bowel sounds are well heard. There are no tender areas or masses. EXTREMITIES: Femorals are diminished. There are no femoral bruits. Leg pulses are well felt. There is no pedal edema. There is no DVT or cellulitis. There is no cyanosis or clubbing. There is no calf tenderness. CENTRAL NERVOUS SYSTEM: The patient is conscious, awake, alert, oriented x3 with no focal deficits. PSYCHIATRIC: The patient's judgment and insight are intact. His affect is normal. DIAGNOSTIC DATA: The patient's ultrasound of the renal arteries showed no evidence of renal artery stenosis. The patient's sodium is 141.2, potassium 3.6, chloride 108, CO2 is 29. The patient's BUN is 23, creatinine 1.56, GFR is reduced at 53 mL, which is chronic kidney disease stage 3. His glucose is 115 and his calcium is 9.0. ASSESSMENT: 1. SECOND-DEGREE AV BLOCK, MOBITZ TYPE 1, AND ALSO 2:1 SECOND-DEGREE AV BLOCK, MOST LIKELY SECONDARY TO MOBITZ TYPE 1 CONDUCTION PROBLEM. THE PATIENT HAS NO CHRONOTROPIC INCOMPETENCE BY STRESS TESTING YESTERDAY AND THERE IS NO ISCHEMIC OR SCAR/WI BY CARDIOLITE IMAGING. This has been discussed with the patient. 2. CONGESTIVE HEART FAILURE, AT PRESENT COMPENSATED. THIS IS MOST LIKELY SECONDARY TO DIASTOLIC HEART FAILURE AND ALSO IS SECONDARY TO VOLUME OVERLOAD DUE TO CHRONIC KIDNEY DISEASE, AT PRESENT COMPENSATED. 3. HYPERTENSION. BLOOD PRESSURE IS WELL CONTROLLED. 4. DIABETES MELLITUS, TYPE 2, NON-INSULIN DEPENDENT, WITH CHRONIC KIDNEY DISEASE. 5. DYSLIPIDEMIA. 6. CHRONIC KIDNEY DISEASE. AT PRESENT, GFR IS REDUCED AT 53 ML, WHICH IS CHRONIC KIDNEY DISEASE STAGE 3. 7. MODERATE MITRAL REGURGITATION. RECOMMENDATION: Continue the patient on ERIKA inhibitor and the current treatment options and aspirin. I would not use a beta shereen or an AV stevie/SA slowing agent such as Cardizem or diltiazem and would also avoid drugs such as Catapres, which can cause bradycardia. The patient is relatively asymptomatic. Will get a 30-day event monitor as an outpatient. We will also see if the patient can be seen by [facility] Cardiology to make sure that he does not need a permanent pacemaker, although I feel that the patient is asymptomatic and does not need it now. Also, I have asked the patient to stop his glaucoma medication, which has timolol in it since this beta shereen can be a cause bradycardia and AV block. Note, 30 minutes were spent on this patient with more than 50% of that time spent in direct patient care. I have also discussed with the patient, his negative renal artery studies for renal artery stenosis. There was no evidence of renal artery stenosis by Doppler. This has been discussed with the patient in detail. I discussed with Dr. Milian, the attending physician on the case. We will follow the patient up in the office. The patient was given my cell number to call me if he has any problems. We will get a 30-day event monitor and follow up the patient in the office. Will sign off. Thanking you. DICTATING PHYSICIAN: EMMA FIORE M.D. [id number] PHY#: [id number] ID: [id number] JOB#: [id number] ACCT: [id number] cc: > MTDD
--- NOTE | 2017-02-18 19:38 | DRAGON STRESS TEST REPORT ---
Exercise EKG treadmill Cardiolite stress test using SPECT. Data procedure: 02/17/2017. Ordering Provider: Dr. Nancy Haynes. Primary CARE Physician: Les Milian MD. Patient Status: In Patient. Indications: Abnormal EKG, congestive heart failure, indication: and second- degree AV block, hypertension . and also to look for chronotropic incompetence Note coronary risk factors: Age, and hypertension. Significant physical findings prior to stress testing show a blood pressure of 162/76 and a heart rate of 45 Sinus Bradycardia. Beats per minute. Auscultation of the heart shows normal S1 and S2.[No] S3 or S4 gallops. Systolic murmur in the left sternal border and apex. Lungs are clear to auscultation and percussion. Resting 12-lead EKG: Second-degree AV block type I Wenckebach. Left anterior vascular block. Procedure: The patient was excised on a standard Pradip protocol. . The patient walked a total of 4 minutes and 137 33 seconds on this protocol and reached a peak heart rate of beats per minute, which is 92 % of maximum predicted heart rate for age. This is at a workload of 7 Indications: METS. The test was stopped because more than 85% of maximum predicted heart rate for age achieved. The patient described no symptoms of chest pain/discomfort within 2 minutes the patient's heart rate went up to 10 3 bpm, and there is no evidence of chronotropic incompetence. At this time the patient continued to exercise and the patient was given 1 mg of atropine intravenously and this with this and the patient exercising No evidence of ischemia the heart rate went up to 137 as mentioned earlier. . Exercise EKG's This seems to be a [address] segment depression only in leads V5 V6, which in my opinion is nondiagnostic of ischemia Arrhythmias seen: None. The blood pressure response was hypertensive. At peak exercise the blood pressure was 200 /99 millimeters of Hg. The double product was 27.8 doubt k. Summary of findings and interpretation: 1. No chest pain or chest discomfort symptoms reproduced. 2. dOUDT EKG evidence of ischemia in the form of ST segment depression since only [address] segment, depression in leads V5 V6, which could be due to the patient's blood pressure being elevated. 3. Hypertensive blood pressure response. 4. No arrhythmias seen. 5. Good exercise tolerance, good aerobic capacity. Diagnostic treadmill stress test most likely negative for ischemia by EKG criteria. Recommendations: Correlate with nuclear Cardiolite images. Nuclear data: At rest the patient was given 12.8 millicuries of technetium 99 sestamibi, and as per protocol rest none gated SPECT images were obtained. The patient was exercised on a treadmill [see exercise physiology]. One minute prior to termination of exercise, 37.0 millicuries of technetium and there sestamibi was injected intravenously. As per protocol stress gated images were obtained. Impression: Review of images show that there is liver contamination artifact inferior wall. In spite of this all segments of the myocardium had normal perfusion at rest, and normal perfusion post exercise. All segments of the myocardium had normal motion, contraction, and thickening by gated study. T. I D. ratio was 0.58. The computer read rest and stress left ventricular ejection fractions w 52 % and 47 %respectively. Visually both the ejection fractions were normal in excess of 55%. Conclusions: 1. No clinical symptoms of exercise-induced myocardial ischemia at a peak heart rate of beats per minute, patient having achieved % of maximum predicted heart rate for age, at a workload of METS. 2. MoST likely no EKG evidence of exercise-induced myocardial ischemia. 3. No arrhythmias seen. 4. No scintigraphic evidence of exercise-induced myocardial ischemia. 5. No scintigraphic evidence of myocardial infarction/scar. 6. No evidence of chronotropic incompetence. Recommendations Aggressive coronary risk factor modification, and treatment of underlying comorbidities MTDD
== END 2017-02-18 12:01 | disposition home or self-care (01) | DRG 308 ==
LOC: ER 18:53 → EH 21:41 → UNDOADMIN 21:41 → EH 22:11 → 3S 23:19
PROVIDERS: ADMIT Internal Medicine; ATTEND Internal Medicine
DX: I44.1 Atrioventricular block, second degree (principal); I50.31 Acute diastolic (congestive) heart failure; J81.0 Acute pulmonary edema; I13.0 Hypertensive heart and chronic kidney disease with heart failure and stage 1 through stage 4 chronic kidney disease, or unspecified chronic kidney disease; N40.1 Benign prostatic hyperplasia with lower urinary tract symptoms; R33.8 Other retention of urine; N18.3 Chronic kidney disease, stage 3 (moderate); M10.9 Gout, unspecified; E87.6 Hypokalemia; E11.22 Type 2 diabetes mellitus with diabetic chronic kidney disease; I44.4 Left anterior fascicular block; E78.5 Hyperlipidemia, unspecified; I34.0 Nonrheumatic mitral (valve) insufficiency; Z96.652 Presence of left artificial knee joint; Z79.899 Other long term (current) drug therapy
CPT/HCPCS: 36415; 71010; 78452; 80048; 80053; 80061; 82550; 82553; 83735; 83880; 84439; 84443; 84481; 84484; 85025; 93005; 93010; 93017; 93306; 93975; 99285; A9500; J0461; J1644; J1940; J3490; Q9969

== ENCOUNTER → 2017-06-01 | Outpatient (CLI) | payer MEDICARE ==
[2017-06-01 09:08] LABS: HEMATOCRIT 37.7 % (37.9-51.0); HEMOGLOBIN 12.6 g/dL (13.5-17.0); HGB HCT DIFFERENCE 0.1; MEAN CORPUSCULAR HEMOGLOBIN 26.7 pg (27.0-33.4); MEAN CORPUSCULAR HGB CONC 33.3 g/dL (32.0-36.0); MEAN CORPUSCULAR VOLUME 80 fl (80-97); RED BLOOD COUNT 4.71 10^6/uL (4.35-5.55); RED CELL DISTRIBUTION WIDTH 17.3 % (11.5-14.0); WHITE BLOOD COUNT 8.6 10^3/uL (4.0-10.5)
[2017-06-01 09:13] LABS: APPEARANCE,URINE CLEAR; BILIRUBIN,URINE NEGATIVE (NEGATIVE); GLUCOSE, URINE NEGATIVE (NEGATIVE); KETONES,URINE NEGATIVE (NEGATIVE); LEUKOCYTE ESTERASE,URINE NEGATIVE (NEGATIVE); NITRITE,URINE NEGATIVE (NEGATIVE); PROTEIN,URINE 100 mg/dL (NEGATIVE); UROBILINOGEN,URINE NEGATIVE mg/dL (<2.0)
[2017-06-01 09:32] LABS: ANION GAP 12 (5-19); BLOOD UREA NITROGEN 33 mg/dL (7-20); CALCIUM 8.9 mg/dL (8.4-10.2); CARBON DIOXIDE 25 mmol/L (22-30); CHLORIDE 108 mmol/L (98-107); CREATININE RESULT 1.71 mg/dL (0.52-1.25); GLUCOSE 123 mg/dL (75-110); POTASSIUM 4.4 mmol/L (3.6-5.0); SODIUM 144.7 mmol/L (137-145)
[2017-06-01 09:48] LABS: URINE CREATININE 88.1 mg/dL (22-328); URINE PROTEIN 149.6 mg/dL (<12)
== END ==
LOC: LAB 08:43
PROVIDERS: ATTEND Internal Medicine Nephrology
DX: N18.3 Chronic kidney disease, stage 3 (moderate) (principal); R80.9 Proteinuria, unspecified; M10.00 Idiopathic gout, unspecified site; E11.9 Type 2 diabetes mellitus without complications
CPT/HCPCS: 36415; 80048; 81001; 82570; 84156; 85027

== ENCOUNTER → 2017-07-16 | Outpatient (CLI) | payer MEDICARE ==
[2017-07-16 15:18] LABS: APPEARANCE,URINE CLEAR; BILIRUBIN,URINE NEGATIVE (NEGATIVE); GLUCOSE, URINE NEGATIVE (NEGATIVE); KETONES,URINE NEGATIVE (NEGATIVE); LEUKOCYTE ESTERASE,URINE NEGATIVE (NEGATIVE); NITRITE,URINE NEGATIVE (NEGATIVE); PROTEIN,URINE >=500 mg/dL (NEGATIVE); UROBILINOGEN,URINE NEGATIVE mg/dL (<2.0)
[2017-07-16 15:25] LABS: ANION GAP 10 (5-19); BLOOD UREA NITROGEN 22 mg/dL (7-20); CALCIUM 8.6 mg/dL (8.4-10.2); CARBON DIOXIDE 29 mmol/L (22-30); CHLORIDE 104 mmol/L (98-107); CREATININE RESULT 1.63 mg/dL (0.52-1.25); GLUCOSE 108 mg/dL (75-110)
[2017-07-16 15:35] LABS: URINE CREATININE 92.4 mg/dL (22-328)
== END ==
LOC: OD 13:29
PROVIDERS: ATTEND Internal Medicine Nephrology
DX: N18.3 Chronic kidney disease, stage 3 (moderate) (principal); R80.9 Proteinuria, unspecified; E11.9 Type 2 diabetes mellitus without complications; M10.00 Idiopathic gout, unspecified site
CPT/HCPCS: 36415; 80048; 81001; 82570; 84156

== ENCOUNTER 2017-08-05 10:07 | Day surgery (SDC) | payer MEDICARE ==
[~2017-08-05 10:07] MED LIST: CHONDR SU A NA/HYALUR INTRAOC KIT (SURGICARE) ONE; CHONDR SU A NA/HYALUR SOD 0.5 ML DISP.SYRIN ONE; EPINEPHRINE INJ/PF 1 MG/1 ML AMPULE ONE; KETOROLAC TROMETHAMINE 0.45% 4 DROP/0.4 ML DROPERETTE OD PRN; LIDOCAINE 1% INJ-PF (10 MG/ML) 30 ML SDV ONE; TOBRAMYCIN SULFATE/DEXAMETH OPH OINTMENT 3.5 GM ONE
[2017-08-05] MEDS: BESIFLOXACIN HCL 0.6% OPH SUSP 5 ML BOTTLE OD PRN ×3 (10:30→11:25)
[2017-08-05] MEDS: CYCLOPENTOLATE 0.2%/PHENYLEPHRINE 1% OPH SOLN 2 ML OD PRN ×3 (10:30→10:50)
[2017-08-05] MEDS: TROPICAMIDE 1% OPH SOLN 3 ML OD PRN ×3 (10:30→10:50)
[2017-08-05] MEDS: TETRACAINE HCL 0.5% OPH SOLN 0.6 ML DROPERETTE OD PRN ×3 (10:31→11:06)
[2017-08-05] MEDS ORDERED: MIDAZOLAM 2 MG/2 ML INJ ONE (10:43)
[2017-08-05] MEDS ORDERED: HYDRALAZINE HCL INJ/PF 20 MG/1 ML SDV ONE (12:11)
== END 2017-08-05 12:05 | disposition home or self-care (01) ==
LOC: SC 10:07
PROVIDERS: ATTEND Ophthalmology
PROC: 089230Z Drainage of Right Anterior Chamber with Drainage Device, Percutaneous Approach (ICD-10-PCS; 2017-08-05)
PROC: 08RJ3JZ Replacement of Right Lens with Synthetic Substitute, Percutaneous Approach (ICD-10-PCS; principal; 2017-08-05 10:45)
DX: H25.11 Age-related nuclear cataract, right eye (principal); H40.1132 Primary open-angle glaucoma, bilateral, moderate stage; E11.9 Type 2 diabetes mellitus without complications; I10 Essential (primary) hypertension; E78.00 Pure hypercholesterolemia, unspecified; M10.9 Gout, unspecified; Z79.82 Long term (current) use of aspirin; Z79.899 Other long term (current) drug therapy
CPT/HCPCS: 0191T; 66984; 142; C1783; J0171; J0360; J2250; J3490; V2630

== ENCOUNTER 2017-08-19 06:19 | Day surgery (SDC) | payer MEDICARE ==
[~2017-08-19 06:19] MED LIST changes: -CHONDR SU A NA/HYALUR INTRAOC KIT (SURGICARE) ONE; -CHONDR SU A NA/HYALUR SOD 0.5 ML DISP.SYRIN ONE; -EPINEPHRINE INJ/PF 1 MG/1 ML AMPULE ONE; -KETOROLAC TROMETHAMINE 0.45% 4 DROP/0.4 ML DROPERETTE OD PRN; +KETOROLAC TROMETHAMINE 0.45% 4 DROP/0.4 ML DROPERETTE OS PRN; -LIDOCAINE 1% INJ-PF (10 MG/ML) 30 ML SDV ONE; -TOBRAMYCIN SULFATE/DEXAMETH OPH OINTMENT 3.5 GM ONE
[2017-08-19] MEDS: TROPICAMIDE 1% OPH SOLN 3 ML OS PRN ×3 (06:55→07:15)
[2017-08-19] MEDS: CYCLOPENTOLATE 0.2%/PHENYLEPHRINE 1% OPH SOLN 2 ML OS PRN ×3 (06:55→07:15)
[2017-08-19] MEDS: BESIFLOXACIN HCL 0.6% OPH SUSP 5 ML BOTTLE OS PRN ×4 (06:55→07:56)
[2017-08-19] MEDS: TETRACAINE HCL 0.5% OPH SOLN 0.6 ML DROPERETTE OS PRN ×3 (06:56→07:35)
[2017-08-19] MEDS ORDERED: LIDOCAINE 1% INJ-PF (10 MG/ML) 30 ML SDV ONE (07:12)
[2017-08-19] MEDS ORDERED: EPINEPHRINE INJ/PF 1 MG/1 ML AMPULE ONE (07:12)
[2017-08-19] MEDS ORDERED: CHONDR SU A NA/HYALUR INTRAOC KIT (SURGICARE) ONE (07:12)
[2017-08-19] MEDS ORDERED: MIDAZOLAM 2 MG/2 ML INJ ONE (07:30)
[2017-08-19] MEDS: TOBRAMYCIN SULFATE/DEXAMETH OPH OINTMENT 3.5 GM ONE ×2 (07:56)
[2017-08-19] MEDS ORDERED: CHONDR SU A NA/HYALUR SOD 0.5 ML DISP.SYRIN ONE (12:25)
== END 2017-08-19 08:39 | disposition home or self-care (01) ==
LOC: SC 06:19
PROVIDERS: ATTEND Ophthalmology
PROC: 089330Z Drainage of Left Anterior Chamber with Drainage Device, Percutaneous Approach (ICD-10-PCS; 2017-08-19)
PROC: 08RK3JZ Replacement of Left Lens with Synthetic Substitute, Percutaneous Approach (ICD-10-PCS; principal; 2017-08-19 07:30)
DX: H25.12 Age-related nuclear cataract, left eye (principal); H40.1122 Primary open-angle glaucoma, left eye, moderate stage; Z98.41 Cataract extraction status, right eye; E11.9 Type 2 diabetes mellitus without complications; M19.90 Unspecified osteoarthritis, unspecified site; I10 Essential (primary) hypertension; E78.00 Pure hypercholesterolemia, unspecified; M10.9 Gout, unspecified; Z96.652 Presence of left artificial knee joint; Z79.899 Other long term (current) drug therapy; Z79.82 Long term (current) use of aspirin
CPT/HCPCS: 0191T; 66984; 142; 82962; C1783; J0171; J2250; J3490; V2630

== ENCOUNTER → 2017-08-24 | Outpatient (CLI) | payer MEDICARE ==
[2017-08-24 09:41] LABS: APPEARANCE,URINE CLEAR; BILIRUBIN,URINE NEGATIVE (NEGATIVE); COLOR,URINE YELLOW; GLUCOSE, URINE NEGATIVE (NEGATIVE); KETONES,URINE NEGATIVE (NEGATIVE); LEUKOCYTE ESTERASE,URINE NEGATIVE (NEGATIVE); NITRITE,URINE NEGATIVE (NEGATIVE); PROTEIN,URINE 100 mg/dL (NEGATIVE); URINE SPECIFIC GRAVITY 1.009; UROBILINOGEN,URINE NEGATIVE mg/dL (<2.0)
[2017-08-24 09:46] LABS: ANION GAP 11 (5-19); BLOOD UREA NITROGEN 28 mg/dL (7-20); CALCIUM 9.3 mg/dL (8.4-10.2); CARBON DIOXIDE 28 mmol/L (22-30); CHLORIDE 105 mmol/L (98-107); GLUCOSE 145 mg/dL (75-110); POTASSIUM 4.2 mmol/L (3.6-5.0); SODIUM 143.5 mmol/L (137-145)
[2017-08-24 09:50] LABS: UR PRO/CREAT RATIO RESULT 1.6 mg/mg (0.0-0.2); URINE CREATININE 68.4 mg/dL (22-328)
== END ==
LOC: OD 08:09
PROVIDERS: ATTEND Internal Medicine Nephrology
DX: D89.9 Disorder involving the immune mechanism, unspecified (principal); Z94.0 Kidney transplant status; Z79.899 Other long term (current) drug therapy; E83.30 Disorder of phosphorus metabolism, unspecified
CPT/HCPCS: 36415; 80048; 81001; 82570; 84156

== ENCOUNTER → 2017-12-29 | Outpatient (CLI) | payer MEDICARE ==
[2017-12-29 08:33] LABS: ABSOLUTE BASOPHILS # (AUTO) 0.1 10^3/uL (0.0-0.2); ABSOLUTE EOSINOPHILS # (AUTO) 0.2 10^3/uL (0.0-0.6); ABSOLUTE LYMPHOCYTES (AUTO) 1.7 10^3/uL (0.5-4.7); ABSOLUTE NEUT (AUTO) 5.9 10^3/uL (1.7-8.2); BASOPHILS % (AUTO) 0.8 % (0-2); HEMATOCRIT 39.7 % (37.9-51.0); HEMOGLOBIN 13.1 g/dL (13.5-17.0); LYMPHOCYTES % (AUTO) 19.3 % (13-45); MEAN CORPUSCULAR HEMOGLOBIN 27.4 pg (27.0-33.4); MEAN CORPUSCULAR VOLUME 83 fl (80-97); MONOCYTES % (AUTO) 11.4 % (3-13); PLATELET COUNT 171 10^3/uL (150-450); RED BLOOD COUNT 4.78 10^6/uL (4.35-5.55); RED CELL DISTRIBUTION WIDTH 16.7 % (11.5-14.0); SEGMENTED NEUTROPHILS % (AUTO) 66.5 % (42-78); TOTAL CELLS COUNTED % (AUTO) 100 %; WHITE BLOOD COUNT 8.8 10^3/uL (4.0-10.5)
[2017-12-29 09:15] LABS: ALANINE AMINOTRANSFERASE 36 U/L (21-72); ALBUMIN 3.8 g/dL (3.5-5.0); ALKALINE PHOSPHATASE 64 U/L (38-126); ANION GAP 15 (5-19); ASPARTATE AMINO TRANSFERASE 26 U/L (17-59); BILIRUBIN,DIRECT 0.3 mg/dL (0.0-0.4); BILIRUBIN,TOTAL 0.8 mg/dL (0.2-1.3); BLOOD UREA NITROGEN 27 mg/dL (7-20); CALCIUM 8.8 mg/dL (8.4-10.2); CARBON DIOXIDE 28 mmol/L (22-30); CHLORIDE 102 mmol/L (98-107); GLUCOSE 118 mg/dL (75-110); POTASSIUM 3.9 mmol/L (3.6-5.0); SODIUM 144.5 mmol/L (137-145); TOTAL PROTEIN 7.2 g/dL (6.3-8.2); TRIGLYCERIDES 53 mg/dL (<150)
[2017-12-29 09:27] LABS: DIRECT LDL 71 mg/dL (<100)
== END ==
LOC: LAB 08:07
PROVIDERS: ATTEND Internal Medicine
DX: E11.22 Type 2 diabetes mellitus with diabetic chronic kidney disease (principal); I12.9 Hypertensive chronic kidney disease with stage 1 through stage 4 chronic kidney disease, or unspecified chronic kidney disease; N18.3 Chronic kidney disease, stage 3 (moderate); E78.5 Hyperlipidemia, unspecified; N40.1 Benign prostatic hyperplasia with lower urinary tract symptoms; R35.1 Nocturia
CPT/HCPCS: 36415; 84443; 85025; 80053; 83036; 80061; G0103; 84153

== ENCOUNTER → 2018-03-16 | Outpatient (CLI) | payer MEDICARE ==
--- NOTE | 2018-03-16 10:00 | RADIOLOGY REPORT (SQ) ---
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 TECHNIQUE: CT scan of the chest performed using helical scanning technique with dynamic intravenous contrast injection. Images reviewed with lung, soft tissue and bone windows. Reconstructed coronal and sagittal MPR images reviewed. All images stored on PACS. All CT scanners at this facility use dose modulation, iterative reconstruction, and/or weight based d osing when appropriate to reduce radiation dose to as low as reasonably achievable (ALARA). [facility]: Dose Right [facility]: CareDose [facility]: Dose Right [facility]: Teradose 4D [facility]: [employer] CONTRAST TYPE AND DOSE: See separate report of the same date. RENAL FUNCTION: See separate report of the same date. RADIATION DOSE: . LIMITATIONS: None. FINDINGS: LUNGS AND PLEURA: Centrilobular and paraseptal emphysema. There are 4 to 5 nodules in bot h lungs, the largest 5 mm in the middle lobe. No effusions. HILAR AND MEDIASTINAL STRUCTURES: No identified masses or abnormal nodes. HEART AND VASCULAR STRUCTURES: No aneurysm or dissection. No central pulmonary emboli. No pericardi al effusion. HARDWARE: None in the chest. UPPER ABDOMEN: See separate report of the CT of the abdomen. THYROID AND OTHER SOFT TISSUES: No masses. No adenopathy. BONES: No significant finding. OTHER: No other significant finding. IMPRESSION: Less than 6 mm pulmonary nodules. TECHNICAL DOCUMENTATION: JOB ID: [id number] Quality ID # [id number]: Final reports with documentation of one or more dose reduction techniques (e.g., Au tomated exposure control, adjustment of the mA and/or kV according to patient size, use of iterative reconstruction technique) 2010 [employer]- All Rights Reserved Reading location - IP/workstation name: [email or web address]
--- NOTE | 2018-03-16 10:13 | RADIOLOGY REPORT (SQ) ---
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 TECHNIQUE: CT scan of the abdomen and pelvis performed with and without intravenous contrast, and wi thout oral contrast. Contrasted imaging performed helical scanning technique and dynamic intravenous contrast injection. Images reviewed with lung, soft tissue, and bone windows. Reconstructed coronal a nd sagittal MPR images reviewed. Delayed images for evaluation of the urinary system also acquired. A ll images stored on PACS. All CT scanners at this facility use dose modulation, iterative reconstruction, and/or weight based d osing when appropriate to reduce radiation dose to as low as reasonably achievable (ALARA). [facility]: Dose Right [facility]: CareDose [facility]: Dose Right [facility]: Teradose 4D [facility]: [employer] CONTRAST TYPE AND DOSE: contrast/concentration: Isovue 300.00 mg/ml; Total Contrast Delivered: 91.0 ml; Total Saline Delivered: 70.0 ml RENAL FUNCTION: GFR 42. RADIATION DOSE: CT Rad equipment meets quality standard of care and radiation dose reduction techniq ues were employed. CTDIvol: 9.0 - 9.1 mGy. DLP: 1565 mGy-cm. . LIMITATIONS: None. FINDINGS: NON-CONTRASTED IMAGING: No significant renal or bladder calcifications. No other significa nt organ calcifications. POST-CONTRASTED IMAGING: LOWER CHEST: See separate report of the CT of the chest. LIVER: Normal size. No masses. No dilated ducts. SPLEEN: Normal size. No focal lesions. PANCREAS: No masses. No significant calcifications. No adjacent inflammation or peripancreatic fluid collections. Pancreatic duct not dilated. GALLBLADDER: No identified stones by CT criteria. No inflammatory changes to suggest cholecystitis. ADRENAL GLANDS: Lipid rich left adrenal nodule measuring -20 HU and about 2 cm in diameter. RIGHT KIDNEY AND URETER: Lower pole cortical lesion measuring 4.2 cm in diameter. Lesion is cystic w ith a thick internal septation which enhances. Simple cortical cyst upper pole measuring 1.5 cm. N o significant calcifications. No hydronephrosis or hydroureter. LEFT KIDNEY AND URETER: There are 2 lower pole cortical cysts measuring up to about 1.5 cm. No solid masses. No significant calcifications. No hydronephrosis or hydroureter. AORTA AND VESSELS: No aneurysm. RETROPERITONEUM: No retroperitoneal adenopathy, hemorrhage or masses. BOWEL AND PERITONEAL CAVITY: No masses or inflammatory changes. No free fluid or peritoneal masses. APPENDIX: Normal. PELVIS: Enlarged prostate 5.9 x 4.8 cm. No pelvic adenopathy. ABDOMINAL WALL: Right inguinal hernia containing nondilated loops of small bowel. BONES: No blastic lesions. OTHER: No other significant finding. IMPRESSION: 1. 4 cm Bosniak 3 lesion lower pole right kidney. 2. Benign left adrenal adenoma. 3. Enlarged prostate. 4. Right inguinal hernia. TECHNICAL DOCUMENTATION: JOB ID: [id number] Quality ID # [id number]: Final reports with documentation of one or more dose reduction techniques (e.g., Au tomated exposure control, adjustment of the mA and/or kV according to patient size, use of iterative reconstruction technique) 2010 [employer]- All Rights Reserved Reading location - IP/workstation name: [email or web address]
--- NOTE | 2018-03-16 15:07 | RADIOLOGY REPORT (SQ) ---
EXAM DESCRIPTION: NM WHOLE BODY BONE SCAN COMPLETED DATE/TIME: 03/16/2018 1:07 pm REASON FOR STUDY: PROSTATE CANCER C61 MALIGNANT NEOPLASM OF PROSTATE COMPARISON: CT scan 03/16/2018 RADIONUCLIDE AND DOSE: 21.7 millicuries Tc99m HDP. The route of agent administration: Intravenous. ADDITIONAL DRUGS AND DOSES: None. TECHNIQUE: Routine delayed images at 3 hour post radionuclide injection acquired of the bony skeleto n including anterior and posterior whole-body projections and additional focused images as needed. LIMITATIONS: None. FINDINGS: BONES: Focal increase activity 2 right anterior ribs corresponding to healing fractures on CT scan. Photopenia related to a right knee replacement. No suspicious lesions for metastatic dise ase. KIDNEYS: Symmetric excretion without obstruction. OTHER: No other significant finding. IMPRESSION: No lesions suspicious for metastatic disease. COMMENT: Quality measure 147: Current bone scan is compared with any available plain radiographs, p rior bone scans, and CT/MRI. TECHNICAL DOCUMENTATION: JOB ID: [id number] [facility]- All Rights Reserved Reading location - IP/workstation name: [email or web address]
== END ==
LOC: RAD 08:40
PROVIDERS: ATTEND Urology
DX: C61 Malignant neoplasm of prostate (principal); N40.0 Benign prostatic hyperplasia without lower urinary tract symptoms; D35.02 Benign neoplasm of left adrenal gland; K40.90 Unilateral inguinal hernia, without obstruction or gangrene, not specified as recurrent; R91.8 Other nonspecific abnormal finding of lung field
CPT/HCPCS: 82565; 78306; 71260; 74178; A9561; Q9969

== ENCOUNTER → 2018-04-09 | Outpatient (CLI) | payer MEDICARE ==
[2018-04-09 08:29] LABS: HEMATOCRIT 34.9 % (37.9-51.0); HEMOGLOBIN 11.4 g/dL (13.5-17.0); MEAN CORPUSCULAR HEMOGLOBIN 27.2 pg (27.0-33.4); MEAN CORPUSCULAR HGB CONC 32.8 g/dL (32.0-36.0); MEAN CORPUSCULAR VOLUME 83 fl (80-97); PLATELET COUNT 181 10^3/uL (150-450); RED BLOOD COUNT 4.21 10^6/uL (4.35-5.55); RED CELL DISTRIBUTION WIDTH 16.3 % (11.5-14.0); WHITE BLOOD COUNT 9.2 10^3/uL (4.0-10.5)
[2018-04-09 09:01] LABS: ANION GAP 9 (5-19); BLOOD UREA NITROGEN 30 mg/dL (7-20); CALCIUM 8.5 mg/dL (8.4-10.2); CARBON DIOXIDE 26 mmol/L (22-30); CHLORIDE 110 mmol/L (98-107); GLUCOSE 137 mg/dL (75-110); POTASSIUM 4.5 mmol/L (3.6-5.0); SODIUM 145.3 mmol/L (137-145)
== END ==
LOC: LAB 08:01
PROVIDERS: ATTEND Internal Medicine Nephrology
DX: I12.9 Hypertensive chronic kidney disease with stage 1 through stage 4 chronic kidney disease, or unspecified chronic kidney disease (principal); N18.3 Chronic kidney disease, stage 3 (moderate); I50.9 Heart failure, unspecified; R80.9 Proteinuria, unspecified
CPT/HCPCS: 36415; 80048; 85027

== ENCOUNTER 2018-05-13 03:15 | Emergency (ER) | payer MEDICARE ==
--- NOTE | 2018-05-13 04:12 | ER Document Report ---
ED General - General Chief Complaint: Black/Tarry Stools Stated Complaint: BLACK TARRY STOOLS Time Seen by Provider: 05/13/18 03:45 Mode of Arrival: Ambulatory Information source: Patient Notes: Patient is a 72-year-old male who presents to the ED with left low back pain, black tarry stools, which started yesterday during the day. He was diagnosed with prostate cancer 3 months ago and was given his cancer medication injection 2 days ago. He describes his back pain as a dull, numbing pain. He has not taken any medications to help relieve the pain. Aggravating factors include walking, bending, and twisting. He denies any relieving factors. He denies any iron use. TRAVEL OUTSIDE OF THE [place] IN LAST 30 DAYS: No - HPI Pain Level: 5 - Related Data Allergies/Adverse Reactions: No Known Allergies Allergy (Verified 05/13/18 03:20) Past Medical History - Social History Smoking Status: Never Smoker Frequency of alcohol use: None Drug Abuse: None Lives with: Family Family History: Reviewed & Not Pertinent - Past Medical History Cardiac Medical History: Reports: Hx Hypertension Denies: Hx Heart Attack Pulmonary Medical History: Denies: Hx Asthma Neurological Medical History: Denies: Hx Cerebrovascular Accident, Hx Seizures Renal/ Medical History: Denies: Hx Peritoneal Dialysis GI Medical History: Denies: Hx Hepatitis, Hx Hiatal Hernia, Hx Ulcer Musculoskeletal Medical History: Reports Hx Gout Infectious Medical History: Denies: Hx Hepatitis Past Surgical History: Reports: Hx Orthopedic Surgery - lt knee replacement, Hx Tonsillectomy. Denies: Hx Open Heart Surgery, Hx Pacemaker - Immunizations Hx Diphtheria, Pertussis, Tetanus Vaccination: Yes Review of Systems - Review of Systems Constitutional: No symptoms reported EENT: No symptoms reported Cardiovascular: No symptoms reported Respiratory: No symptoms reported Gastrointestinal: See HPI Genitourinary: No symptoms reported Male Genitourinary: No symptoms reported Musculoskeletal: See HPI Skin: No symptoms reported Hematologic/Lymphatic: No symptoms reported Neurological/Psychological: See HPI Physical Exam - Vital signs Vitals: Temp Pulse Resp BP Pulse Ox 98.9 F 92 20 172/69 H 98 05/13/18 03:23 05/13/18 03:23 05/13/18 03:23 05/13/18 03:23 05/13/18 03:23 - General General appearance: Appears well In distress: None - Respiratory Respiratory status: No respiratory distress - Cardiovascular Pulses: Normal: Radial, Dorsalis pedis - Rectal Stool: Heme negative Hemorrhoids: None - Neurological Cognition: Normal Orientation: AAOx4 [place] Coma Scale Verbal: Oriented Speech: Normal Course - Re-evaluation Re-evalutation: 05/13/18 04:30 After patient's rectal exam to check for rectal bleeding, patient stated he had taken iron pills for the past 2 days. Patient educated on how iron pills can change stool color. 05/13/18 05:16 all labs have been reviewed. I do not believe the patient has an active GI bleed, abdominal pathology, cauda equina syndrome, or any other threatening pathology at this time. 05/13/18 05:48 Patient states his pain has improved. He was updated on all his lab results. Patient will be discharged home. - Vital Signs Vital signs: Temp Pulse Resp BP Pulse Ox 98.9 F 92 20 172/69 H 98 05/13/18 03:23 05/13/18 03:23 05/13/18 03:23 05/13/18 03:23 05/13/18 03:23 - Laboratory Result Diagrams: 05/13/18 04:38 05/13/18 04:38 Laboratory results interpreted by me: 05/13/18 05/13/18 04:38 04:38 WBC 11.0 H RBC 4.29 L Hgb 11.5 L Hct 34.2 L MCH 26.8 L RDW 15.7 H Sodium 135.9 L Carbon Dioxide 21 L BUN 26 H Creatinine 1.81 H Est GFR ( Amer) 45 L Est GFR (Non-Af Amer) 37 L Glucose 140 H Direct Bilirubin 0.5 H AST 79 H Albumin 3.3 L Discharge - Discharge Clinical Impression: Back pain Qualifiers: Back pain location: low back pain Chronicity: acute Back pain laterality: left Sciatica presence: without sciatica Qualified Code(s): M54.5 - Low back pain Condition: Stable Disposition: HOME, SELF-CARE Additional Instructions: You have been seen in the emergency department for back pain. Your back pain is most likely from a pulled muscle. You may take Tylenol 650 mg every 6 hours as needed for pain. If you feel your back pain is getting worse, you are unable to walk, unable to bend, or any symptoms that are worrisome to you, please return to the emergency department for further evaluation. Your black tarry stools are due to you taking iron pills these past few days. Iron pills can turn your stool a different color. Please follow-up with your oncologist and primary care doctor in regards to your emergency department visit. Referrals: Lakeisha OGDEN MD [ACTIVE STAFF] - Follow up as needed
[2018-05-13] MEDS ORDERED: ACETAMINOPHEN 325 MG TABLET PO ONE (04:13)
[2018-05-13 04:58] LABS: ABSOLUTE BASOPHILS # (AUTO) 0.1 10^3/uL (0.0-0.2); ABSOLUTE EOSINOPHILS # (AUTO) 0.1 10^3/uL (0.0-0.6); ABSOLUTE LYMPHOCYTES (AUTO) 1.5 10^3/uL (0.5-4.7); ABSOLUTE MONOCYTES (AUTO) 1.3 10^3/uL (0.1-1.4); BASOPHILS % (AUTO) 0.6 % (0-2); EOSINOPHILS % (AUTO) 0.5 % (0-6); HEMATOCRIT 34.2 % (37.9-51.0); HEMOGLOBIN 11.5 g/dL (13.5-17.0); LYMPHOCYTES % (AUTO) 13.6 % (13-45); MEAN CORPUSCULAR HEMOGLOBIN 26.8 pg (27.0-33.4); MEAN CORPUSCULAR HGB CONC 33.7 g/dL (32.0-36.0); MEAN CORPUSCULAR VOLUME 80 fl (80-97); MONOCYTES % (AUTO) 12.1 % (3-13); PLATELET COUNT 193 10^3/uL (150-450); RED BLOOD COUNT 4.29 10^6/uL (4.35-5.55); RED CELL DISTRIBUTION WIDTH 15.7 % (11.5-14.0); SEGMENTED NEUTROPHILS % (AUTO) 73.2 % (42-78); TOTAL CELLS COUNTED % (AUTO) 100 %
[2018-05-13 05:00] LABS: ALANINE AMINOTRANSFERASE 34 U/L (21-72); ALBUMIN 3.3 g/dL (3.5-5.0); ALKALINE PHOSPHATASE 87 U/L (38-126); ANION GAP 13 (5-19); ASPARTATE AMINO TRANSFERASE 79 U/L (17-59); BILIRUBIN,DIRECT 0.5 mg/dL (0.0-0.4); BLOOD UREA NITROGEN 26 mg/dL (7-20); CALCIUM 8.4 mg/dL (8.4-10.2); CARBON DIOXIDE 21 mmol/L (22-30); CHLORIDE 102 mmol/L (98-107); GLUCOSE 140 mg/dL (75-110); POTASSIUM 3.6 mmol/L (3.6-5.0); SODIUM 135.9 mmol/L (137-145); TOTAL PROTEIN 6.8 g/dL (6.3-8.2)
[2018-05-13 06:51] VITALS: BP 161/70
== END 2018-05-13 06:19 | disposition home or self-care (01) ==
LOC: ER 03:15
DX: M54.5 Low back pain (principal); R19.5 Other fecal abnormalities; C61 Malignant neoplasm of prostate; I10 Essential (primary) hypertension; Z96.652 Presence of left artificial knee joint
CPT/HCPCS: 99283; 36415; 85025; 82272; 80053; A9270

== ENCOUNTER 2018-06-16 23:10 | Inpatient (IN) | payer MEDICARE ==
[2018-06-16] MEDS ORDERED: ONDANSETRON HCL INJ/PF 4 MG/2 ML SDV IV ONE (23:40)
[2018-06-16] MEDS ORDERED: NORMAL SALINE 1000 ML 1,000 ML IV ONE (23:40)
--- NOTE | 2018-06-16 23:43 | ER Document Report ---
ED General - General Chief Complaint: Fever Stated Complaint: FEVER/VOMITING Time Seen by Provider: 06/16/18 23:32 Mode of Arrival: Ambulatory Information source: Patient Notes: 72-year-old male with a history of prostate cancer presents emergency department complaints of nausea, vomiting, generalized weakness. Patient states that this is been present for the last week. Patient states that he was having chills tonight. He is not sure if he was running a fever. Patient is coming to the emergency department for an evaluation. Patient denies having started any chemo or radiation yet. Patient states that he had markers placed in his prostate a few weeks ago. He states that he is scheduled to start his radiation treatment on June 22. He denies any chest pain, shortness of breath, abdominal pain, diarrhea, constipation, dysuria, hematuria, melena, hematochezia. TRAVEL OUTSIDE OF THE [place] IN LAST 30 DAYS: No - HPI Onset: Last week Onset/Duration: Gradual Quality of pain: No pain Severity: None Pain Level: Denies Associated symptoms: Chills, Nausea, Vomiting Exacerbated by: Denies Relieved by: Denies Similar symptoms previously: No Recently seen / treated by doctor: No - Related Data Allergies/Adverse Reactions: No Known Allergies Allergy (Verified 05/13/18 03:20) Past Medical History - General Information source: Patient - Social History Smoking Status: Never Smoker Family History: Reviewed & Not Pertinent - Past Medical History Cardiac Medical History: Reports: Hx Hypertension Denies: Hx Heart Attack Pulmonary Medical History: Denies: Hx Asthma Neurological Medical History: Denies: Hx Cerebrovascular Accident, Hx Seizures Renal/ Medical History: Denies: Hx Peritoneal Dialysis GI Medical History: Denies: Hx Hepatitis, Hx Hiatal Hernia, Hx Ulcer Musculoskeletal Medical History: Reports Hx Gout Infectious Medical History: Denies: Hx Hepatitis Past Surgical History: Reports: Hx Orthopedic Surgery - lt knee replacement, Hx Tonsillectomy. Denies: Hx Open Heart Surgery, Hx Pacemaker - Immunizations Hx Diphtheria, Pertussis, Tetanus Vaccination: Yes Review of Systems - Review of Systems Constitutional: Chills, Malaise, Weakness EENT: No symptoms reported Cardiovascular: No symptoms reported Respiratory: No symptoms reported Gastrointestinal: Nausea, Vomiting Genitourinary: No symptoms reported Male Genitourinary: No symptoms reported Musculoskeletal: No symptoms reported Skin: No symptoms reported Hematologic/Lymphatic: No symptoms reported Neurological/Psychological: No symptoms reported -: Yes All other systems reviewed and negative Physical Exam - Vital signs Vitals: Temp Pulse Resp BP Pulse Ox 98.8 F 101 H 16 153/57 H 97 06/16/18 23:24 06/16/18 23:24 06/16/18 23:24 06/16/18 23:24 06/16/18 23:24 - Notes Notes: PHYSICAL EXAMINATION: GENERAL: Well-appearing, well-nourished and in no acute distress. HEAD: Atraumatic, normocephalic. EYES: Pupils equal round and reactive to light, extraocular movements intact, sclera anicteric, conjunctiva are normal. ENT: Nares patent, oropharynx clear without exudates. Moist mucous membranes. NECK: Normal range of motion, supple without lymphadenopathy LUNGS: Breath sounds clear to auscultation bilaterally and equal. No wheezes rales or rhonchi. HEART: Regular rate and rhythm without murmurs ABDOMEN: Soft, nontender, nondistended abdomen. No guarding, no rebound. No masses appreciated. Musculoskeletal: Normal range of motion, no pitting or edema. No cyanosis. NEUROLOGICAL: Cranial nerves grossly intact. Normal speech, normal gait. Normal sensory, motor exams PSYCH: Normal mood, normal affect. SKIN: Warm, Dry, normal turgor, no rashes or lesions noted. Course - Re-evaluation Re-evalutation: 06/17/18 01:33 I spoke with the oncologist on-call, Dr. Eason. He feels that the patient should be admitted for IV antibiotics. He states that he will consult on the patient. Dr. Patrick requesting CT abd/pel. 06/17/18 03:09 CT abd/pel shows enlarged prostate. Metastasis to the lungs. I contacted Dr. Patrick. He will evaluate the patient. 06/17/18 03:27 Dr. Patrick to admit patient. - Vital Signs Vital signs: Temp Pulse Resp BP Pulse Ox 98.8 F 101 H 16 153/57 H 97 06/16/18 23:24 06/16/18 23:24 06/16/18 23:24 06/16/18 23:24 06/16/18 23:24 - Laboratory Result Diagrams: 06/17/18 00:06 06/17/18 00:06 Laboratory results interpreted by me: 06/17/18 06/17/18 06/17/18 00:06 00:06 00:45 WBC 17.0 H RBC 3.77 L Hgb 9.9 L Hct 28.5 L MCV 76 L MCH 26.2 L RDW 16.9 H Lymphocytes % (Manual) 11 L Abs Neuts (Manual) 13.3 H Abs Monocytes (Manual) 1.5 H Sodium 127.5 L Chloride 93 L Carbon Dioxide 21 L BUN 30 H Creatinine 1.28 H Est GFR (Non-Af Amer) 55 L Glucose 168 H Calcium 7.8 L AST 109 H Alkaline Phosphatase 270 H Albumin 3.0 L Urine Protein 100 H Discharge - Discharge Clinical Impression: Hyponatremia, Prostate cancer Leukocytosis Qualifiers: Leukocytosis type: unspecified Qualified Code(s): D72.829 - Elevated white blood cell count, unspecified Nausea & vomiting Qualifiers: Vomiting type: unspecified Vomiting Intractability: unspecified Qualified Code( s): R11.2 - Nausea with vomiting, unspecified Condition: Good Disposition: ADMITTED OBSERVATION Admitting Provider: Hospitalist Unit Admitted: Medical Floor Referrals: SHAWN HERNANDEZ MD [Primary Care Provider] - Follow up as needed
[2018-06-17 00:25] LABS: ALANINE AMINOTRANSFERASE 38 U/L (21-72); ALKALINE PHOSPHATASE 270 U/L (38-126); ANION GAP 14 (5-19); ASPARTATE AMINO TRANSFERASE 109 U/L (17-59); BILIRUBIN,DIRECT 0.3 mg/dL (0.0-0.4); BILIRUBIN,TOTAL 0.6 mg/dL (0.2-1.3); BLOOD UREA NITROGEN 30 mg/dL (7-20); CALCIUM 7.8 mg/dL (8.4-10.2); CARBON DIOXIDE 21 mmol/L (22-30); CHLORIDE 93 mmol/L (98-107); GLUCOSE 168 mg/dL (75-110); POTASSIUM 4.5 mmol/L (3.6-5.0); SODIUM 127.5 mmol/L (137-145); TOTAL PROTEIN 6.5 g/dL (6.3-8.2)
[2018-06-17 00:32] LABS: HEMATOCRIT 28.5 % (37.9-51.0); HEMOGLOBIN 9.9 g/dL (13.5-17.0); MEAN CORPUSCULAR HEMOGLOBIN 26.2 pg (27.0-33.4); MEAN CORPUSCULAR HGB CONC 34.6 g/dL (32.0-36.0); MEAN CORPUSCULAR VOLUME 76 fl (80-97); PLATELET COUNT 424 10^3/uL (150-450); RED BLOOD COUNT 3.77 10^6/uL (4.35-5.55); RED CELL DISTRIBUTION WIDTH 16.9 % (11.5-14.0)
[2018-06-17 00:51] LABS: ABSOLUTE LYMPHOCYTES# (MANUAL) 1.9 10^3/uL (0.5-4.7); ABSOLUTE MONOCYTES # (MANUAL) 1.5 10^3/uL (0.1-1.4); ABSOLUTE NEUTROPHILS# (MANUAL) 13.3 10^3/uL (1.7-8.2); BASOPHILS % (MANUAL) 1 % (0-2); EOSINOPHILS % (MANUAL) 1 % (0-6); LYMPHOCYTES % (MANUAL) 11 % (13-45); MONOCYTES % (MANUAL) 9 % (3-13); SEGMENTED NEUTROPHILS % (MAN) 78 % (42-78); TOTAL CELLS COUNTED 100
[2018-06-17 00:52] LABS: TOXIC GRANULATION 1+; TOXIC VACUOLATION PRESENT
[2018-06-17 00:53] LABS: ANISOCYTOSIS 1+; HYPOCHROMASIA SLIGHT; OVALOCYTES SLIGHT; PLATELET COMMENT ADEQUATE; POIKILOCYTOSIS SLIGHT; POLYCHROMASIA SLIGHT; SCHISTOCYTES SLIGHT
[2018-06-17 01:00] LABS: APPEARANCE,URINE SLIGHTLY-CLOUDY; BILIRUBIN,URINE NEGATIVE (NEGATIVE); COLOR,URINE YELLOW; GLUCOSE, URINE NEGATIVE (NEGATIVE); KETONES,URINE NEGATIVE (NEGATIVE); LEUKOCYTE ESTERASE,URINE NEGATIVE (NEGATIVE); NITRITE,URINE NEGATIVE (NEGATIVE); PROTEIN,URINE 100 mg/dL (NEGATIVE); URINE SPECIFIC GRAVITY 1.014; UROBILINOGEN,URINE NEGATIVE mg/dL (<2.0)
[2018-06-17] MEDS ORDERED: VANCOMYCIN HCL INJ 1000 MG VIAL IV ONE (01:32)
[2018-06-17] MEDS ORDERED: PIPERACILLIN/TAZOBACTAM 3.375 GM VIAL IV ONE (01:33)
--- NOTE | 2018-06-17 02:39 | RADIOLOGY REPORT (SQ) ---
EXAM DESCRIPTION: CT ABDOMEN PELVIS WITHOUT IV CONTRAST COMPLETED DATE/TME: 06/17/2018 01:37 CLINICAL HISTORY: 72 years, Male, prostate cancer COMPARISON: None. TECHNIQUE: Axial CT images of the abdomen and pelvis were obtained without contrast. DLP for 60 Images stored on PACS. All CT scanners at this facility use dose modulation, iterative reconstruction, and/or weight based dosing when appropriate to reduce radiation dose to as low as reasonably achievable (ALARA). [facility]: Dose Right [facility]: CareDose [facility]: Dose Right [facility]: Teradose 4D [facility]: Seriosity LIMITATIONS: None. FINDINGS: There are multiple nodules seen within the right lung base the largest of which measures 8 mm (axial image 1). There are other nodules which measure 4 mm (axial image 2), 3 mm (axial image 3, 5). There are small bilateral pleural effusions, larger on the left. The liver, pancreas, and spleen are unremarkable. The gallbladder is distended. There is a 1.5 cm right adrenal nodule and a 2 cm left adrenal nodule. Both adrenal nodules measure between -12 and 3 Hounsfield units, likely representing adenomas. There is a 3.8 cm right renal cyst and 1 cm left renal cyst. There is no evidence of nephrolithiasis or hydronephrosis bilaterally. There is a 9 mm exophytic cyst along the lower pole of the left kidney. There is no intraperitoneal free air or fluid. There is no lymphadenopathy. There are atherosclerotic calcifications of the abdominal aorta without evidence of aneurysm. The stomach and small bowel are unremarkable. There are bilateral inguinal hernias containing short segments of small bowel with no evidence of an obstruction. There are changes of an appendectomy. The colon is unremarkable. The urinary bladder appears unremarkable. The prostate gland measures 6.0 x 4.8 cm. There are no lytic or blastic bone lesions. IMPRESSION: Pulmonary nodules in the right lung base measuring up to 8 mm, concerning for metastatic disease given the history of prostate cancer. No evidence of bony metastatic disease. Bilateral pleural effusions. Enlarged prostate gland. Bilateral inguinal hernias containing short segments of small bowel with no evidence of an obstruction TECHNICAL DOCUMENTATION: Quality ID # [id number]: Final reports with documentation of one or more dose reduction techniques (e.g., Automated exposure control, adjustment of the mA and/or kV according to patient size, use of iterative reconstruction technique) 2010 [employer]- All Rights Reserved
[2018-06-17] MEDS ORDERED: NORMAL SALINE 1000 ML 1,000 ML IV ONE (03:10)
[2018-06-17] MEDS ORDERED: HYDRALAZINE HCL INJ/PF 20 MG/1 ML SDV IV ONE (03:20)
[2018-06-17] MEDS ORDERED: FUROSEMIDE INJ/PF 40 MG/4 ML SDV IV ONE (03:25)
[2018-06-17] MEDS ORDERED: GUAIFENESIN SYRP 200 MG/10 ML UDC PO PRN (03:43)
[2018-06-17] MEDS ORDERED: IPRATROPIUM/ALBUTEROL 0.5-2.5 MG/3 ML AMPUL NEB PRN (03:43)
--- NOTE | 2018-06-17 03:54 | PDOC H&P ---
History of Present Illness Admission Date/PCP: SHAWN HERNANDEZ MD Patient complains of: Generalized weakness, nausea History of Present Illness: HARMONY RODRIGUEZ is a 72 year old male with a past medical history of recently diagnosed prostate cancer awaiting chemoradiation. He presents with headache, generalized weakness, nausea and vomiting of gastric content. He admits nonproductive cough and fever of dehydration prompting him to consume 8 16 ounce bottles of water per day. Denies chest pain, shortness of breath, abdominal pain, diarrhea, constipation, dysuria. He denies infectious contacts , recent change in medications or antibiotic use. In the emergency room is found to have a an unremarkable abdominal pelvic CT but chest reveals small pleural effusions and lung nodules leukocytosis of 17,000 and hyponatremia of 127. He receives empiric antibiotics and referred to the hospitalist for admission. Past Medical History Cardiac Medical History: Reports: Hypertension Denies: Myocardial Infarction Pulmonary Medical History: Denies: Asthma Neurological Medical History: Denies: Seizures GI Medical History: Denies: Hepatitis, Hiatal Hernia Musculoskeltal Medical History: Reports: Gout Hematology: Denies: Anemia, Sickle Cell Disease Past Surgical History Past Surgical History: Reports: Orthopedic Surgery - lt knee replacement, Tonsillectomy Denies: Pacemaker Social History Information Source: Patient Smoking Status: Never Smoker Frequency of Alcohol Use: None Hx Recreational Drug Use: No Drugs: None Hx Prescription Drug Abuse: No - Advance Directive Resuscitation Status: Full Code Family History Family History: denies: Malignancy Parental Family History Reviewed: Yes Children Family History Reviewed: Yes Sibling(s) Family History Reviewed.: Yes Medication/Allergy Home Medications: Allopurinol [Zyloprim 300 mg Tablet] 300 mg PO DAILY 07/30/17 Aspirin [Aspirin 81 mg Chewable Tablet] 81 mg PO DAILY 07/30/17 Atorvastatin Calcium 10 mg PO DAILY 07/30/17 Hydralazine HCl 100 mg PO TID 07/30/17 Latanoprost 1 drop OP QHS 07/30/17 Lisinopril 40 mg PO DAILY 07/30/17 Allergies/Adverse Reactions: No Known Allergies Allergy (Verified 05/13/18 03:20) Review of Systems Constitutional: ABSENT: chills, fever(s), headache(s), weight gain, weight loss Eyes: ABSENT: visual disturbances Ears: ABSENT: hearing changes Cardiovascular: ABSENT: chest pain, dyspnea on exertion, edema, orthropnea, palpitations Respiratory: ABSENT: cough, hemoptysis Gastrointestinal: ABSENT: abdominal pain, constipation, diarrhea, hematemesis, hematochezia, nausea, vomiting Genitourinary: ABSENT: dysuria, hematuria Musculoskeletal: ABSENT: joint swelling Integumentary: ABSENT: rash, wounds Neurological: ABSENT: abnormal gait, abnormal speech, confusion, dizziness, focal weakness, syncope Psychiatric: ABSENT: anxiety, depression, homidical ideation, suicidal ideation Endocrine: ABSENT: cold intolerance, heat intolerance, polydipsia, polyuria Hematologic/Lymphatic: ABSENT: easy bleeding, easy bruising Physical Exam Vital Signs: Temp Pulse Resp BP Pulse Ox 98.8 F 101 H 16 153/57 H 97 06/16/18 23:24 06/16/18 23:24 06/16/18 23:24 06/16/18 23:24 06/16/18 23:24 Intake & Output 06/15/18 06/16/18 06/17/18 11:59 11:59 11:59 Intake Total 1000 Balance 1000 Weight 79.379 kg General appearance: PRESENT: no acute distress, cooperative, well-developed, well-nourished Head exam: PRESENT: atraumatic, normocephalic Eye exam: PRESENT: conjunctiva pink, EOMI, PERRLA. ABSENT: scleral icterus Ear exam: PRESENT: normal external ear exam Mouth exam: PRESENT: moist, tongue midline Neck exam: ABSENT: carotid bruit, JVD, lymphadenopathy, thyromegaly Respiratory exam: PRESENT: clear to auscultation yuliya, crackles, decreased breath sounds, symmetrical. ABSENT: rales, rhonchi, wheezes Cardiovascular exam: PRESENT: RRR. ABSENT: diastolic murmur, rubs, systolic murmur Pulses: PRESENT: normal dorsalis pedis pul Vascular exam: PRESENT: normal capillary refill GI/Abdominal exam: PRESENT: normal bowel sounds, soft. ABSENT: distended, guarding, mass, organolmegaly, rebound, tenderness Rectal exam: PRESENT: deferred Extremities exam: PRESENT: full ROM. ABSENT: calf tenderness, clubbing, pedal edema Neurological exam: PRESENT: alert, awake, oriented to person, oriented to place , oriented to time, oriented to situation, CN II-XII grossly intact. ABSENT: motor sensory deficit Psychiatric exam: PRESENT: appropriate affect, normal mood. ABSENT: homicidal ideation, suicidal ideation Skin exam: PRESENT: dry, intact, warm. ABSENT: cyanosis, rash Results Laboratory Results: 06/17/18 00:06 06/17/18 00:06 06/17/18 06/17/18 06/17/18 00:06 00:06 00:45 WBC 17.0 H RBC 3.77 L Hgb 9.9 L Hct 28.5 L MCV 76 L MCH 26.2 L MCHC 34.6 RDW 16.9 H Plt Count 424 Seg Neutrophils % Not Reportable Lymphocytes % Not Reportable Monocytes % Not Reportable Eosinophils % Not Reportable Basophils % Not Reportable Absolute Neutrophils Not Reportable Absolute Lymphocytes Not Reportable Absolute Monocytes Not Reportable Absolute Eosinophils Not Reportable Absolute Basophils Not Reportable Sodium 127.5 L Potassium 4.5 Chloride 93 L Carbon Dioxide 21 L Anion Gap 14 BUN 30 H Creatinine 1.28 H Est GFR ( Amer) > 60 Est GFR (Non-Af Amer) 55 L Glucose 168 H Calcium 7.8 L Total Bilirubin 0.6 AST 109 H ALT 38 Alkaline Phosphatase 270 H Total Protein 6.5 Albumin 3.0 L Urine Color YELLOW Urine Appearance SLIGHTLY-CLOUDY Urine pH 5.0 Ur Specific [place] 1.014 Urine Protein 100 H Urine Glucose (UA) NEGATIVE Urine Ketones NEGATIVE Urine Blood NEGATIVE Urine Nitrite NEGATIVE Ur Leukocyte Esterase NEGATIVE Urine WBC (Auto) 3 Urine RBC (Auto) 1 Impressions: Abdomen/Pelvis CT 06/17/18 01:37 IMPRESSION: Pulmonary nodules in the right lung base measuring up to 8 mm, concerning for metastatic disease given the history of prostate cancer. No evidence of bony metastatic disease. Bilateral pleural effusions. Enlarged prostate gland. Bilateral inguinal hernias containing short segments of small bowel with no evidence of an obstruction TECHNICAL DOCUMENTATION: Quality ID # 436: Final reports with documentation of one or more dose reduction techniques (e.g., Automated exposure control, adjustment of the mA and/or kV according to patient size, use of iterative reconstruction technique) 2010 [employer]- All Rights Reserved Assessment & Plan - Diagnosis (1) Pneumonia Is this a current diagnosis for this admission?: Yes Plan: Appears atypical given similar lung nodules described in CT of March 2018 with follow-up negative PET scan. Levaquin ordered, follow-up blood culture and CBC (2) Hyponatremia Is this a current diagnosis for this admission?: Yes Plan: Low urine specific gravity, excessive water consumption suggesting primary polydipsia. Trial fluid restriction. Follow-up urine sodium, osmolarity and serial chemistries (3) Prostate cancer Is this a current diagnosis for this admission?: Yes Plan: Defer to oncology - Time Time Spent: 50 to 70 Minutes - Inpatient Certification Medical Necessity: Need Close Monitoring Due to Risk of Patient Decompensation
[2018-06-17] MEDS ORDERED: VANCOMYCIN HCL INJ 1000 MG VIAL ONE (04:12)
[2018-06-17] MEDS: HEPARIN SOD (PORCINE) 5,000 UNIT/ML 1 ML SYRINGE SUBCUT SCH ×3 (06:37→21:38)
[2018-06-17] MEDS: LEVOFLOXACIN 750 MG/D5W RTU 750 MG/150 ML RTUPB IV SCH (06:37)
[2018-06-17 07:01] LABS: ANION GAP 14 (5-19); BLOOD UREA NITROGEN 25 mg/dL (7-20); CALCIUM 7.9 mg/dL (8.4-10.2); CARBON DIOXIDE 21 mmol/L (22-30); CHLORIDE 96 mmol/L (98-107); GLUCOSE 218 mg/dL (75-110); POTASSIUM 4.4 mmol/L (3.6-5.0); SODIUM 131.4 mmol/L (137-145)
[2018-06-17 07:35] LABS: URINE SODIUM 19 mmol/L (30-90)
[2018-06-17 08:01] LABS: OSMOLALITY,URINE 389 mOsm/kg (300-900)
--- NOTE | 2018-06-17 08:28 | PDOC CONSULTATION ---
Consultation Consult Date: 06/17/18 Attending physician:: SHAWN HERNANDEZ Consult reason:: Called overnight about patient with history of prostate cancer here with fever status post fiducial placement for radiation History of Present Illness Admission Date/PCP: 06/17/18 03:32 SHAWN HERNANDEZ MD Patient complains of: Fever, weakness History of Present Illness: HARMONY RODRIGUEZ is a 72 year old male with recent history of early stage prostate cancer, he has been seen both by Dr. Kwame Serrato of urology [facility], as well as Dr. Phillip Lemons of radiation oncology, sounds like he had an elevated PSA recently and has been monitored and over the last few months it has risen and the decision was made to proceed with evaluation, biopsy was done , we will get the results of that, and radiation therapy recommended. He had fiducial placement for the radiation about a week to 10 days ago, and he was to start radiation on 06/22/2018. Over the last 48 hours prior to admission he notes that he was having fevers and chills, although some part of the chills may have been sweats at night because he was receiving Lupron shots prior to initiation of radiation. The eye was called overnight and he was noted to have an elevated white count at 17, hyponatremia, some elevation in his baseline creatinine. So I recommended admission to the hospitalist team for 24 hours with IV antibiotics to ensure that fiducial placement did not cause a mild sepsis-like episode. He feels better now, has been afebrile for about 6 or 8 hours. Of note the hospitalist requested CT of the abdomen pelvis to be done, this was done there is no source of infection noted, there was an enlarged prostate, there was some element of pulmonary nodules noted. The largest nodule was only 8 mm. I reviewed previous imaging, and he did have pulmonary nodules noted but the largest was only 6 mm in 03/2018. I reviewed his labs here and his PSA was 187. Past Medical History Cardiac Medical History: Reports: Hypertension Denies: Myocardial Infarction Pulmonary Medical History: Denies: Asthma Neurological Medical History: Denies: Seizures Malignancy Medical History: Reports: Other - Prostate cancer GI Medical History: Denies: Hepatitis, Hiatal Hernia Musculoskeltal Medical History: Reports: Gout Hematology: Denies: Anemia, Sickle Cell Disease Past Surgical History Past Surgical History: Reports: Orthopedic Surgery - lt knee replacement, Tonsillectomy, Other - Prostate biopsy, fiducial placement Denies: Pacemaker Social History Information Source: Patient Lives with: Family - 1 Smoking Status: Never Smoker Frequency of Alcohol Use: None Hx Recreational Drug Use: No Drugs: None Hx Prescription Drug Abuse: No - Advance Directive Resuscitation Status: Full Code Family History Family History: denies: Malignancy Parental Family History Reviewed: Yes Children Family History Reviewed: Yes Sibling(s) Family History Reviewed.: Yes Medication/Allergy Home Medications: Allopurinol [Zyloprim 300 mg Tablet] 300 mg PO DAILY 06/17/18 Atorvastatin Calcium [Lipitor 10 mg Tablet] 10 mg PO QHS 06/17/18 Cetirizine HCl [Zyrtec 10 mg Tablet] 10 mg PO DAILY 06/17/18 Fluticasone Propionate [Flonase Nasal [place] 50 Mcg/[place] 16 gm] 1 spray NASL BID 06/17/18 Hydralazine HCl [Apresoline 50 mg Tablet] 100 mg PO Q8 06/17/18 Latanoprost/Pf [Latanoprost 0.005% Eye Drop] 1 drop OS QHS 06/17/18 Lisinopril [Prinivil 40 mg Tablet] 40 mg PO DAILY 06/17/18 Tamsulosin HCl [Flomax 0.4 mg Cap.sr] 0.4 mg PO DAILY 06/17/18 Allergies/Adverse Reactions: No Known Allergies Allergy (Verified 05/13/18 03:20) Review of Systems Constitutional: PRESENT: anorexia, fatigue, weakness Cardiovascular: ABSENT: chest pain, dyspnea on exertion, edema, orthropnea, palpitations Gastrointestinal: ABSENT: abdominal pain, constipation, diarrhea, hematemesis, hematochezia, nausea, vomiting Musculoskeletal: ABSENT: joint swelling Integumentary: PRESENT: diaphoresis Neurological: ABSENT: abnormal gait, abnormal speech, confusion, dizziness, focal weakness, syncope Endocrine: PRESENT: flushing Physical Exam Vital Signs: Temp Pulse Resp BP Pulse Ox 98.9 F 106 H 18 166/63 H 98 06/17/18 05:02 06/17/18 05:02 06/17/18 05:02 06/17/18 05:02 06/17/18 05:02 Intake & Output 06/16/18 06/17/18 06/18/18 06:59 06:59 06:59 Intake Total 0 Output Total 500 Balance -500 Weight 81.1 kg General appearance: PRESENT: no acute distress, well-developed, well-nourished Head exam: PRESENT: atraumatic, normocephalic Eye exam: PRESENT: conjunctiva pink, EOMI, PERRLA. ABSENT: scleral icterus Ear exam: PRESENT: normal external ear exam Mouth exam: PRESENT: moist, tongue midline Neck exam: ABSENT: carotid bruit, JVD, lymphadenopathy, thyromegaly Respiratory exam: PRESENT: clear to auscultation yuliya. ABSENT: rales, rhonchi, wheezes Cardiovascular exam: PRESENT: RRR. ABSENT: diastolic murmur, rubs, systolic murmur Pulses: PRESENT: normal dorsalis pedis pul Vascular exam: PRESENT: normal capillary refill GI/Abdominal exam: PRESENT: normal bowel sounds, soft. ABSENT: distended, guarding, mass, organolmegaly, rebound, tenderness Rectal exam: PRESENT: deferred Extremities exam: PRESENT: full ROM. ABSENT: calf tenderness, clubbing, pedal edema Neurological exam: PRESENT: alert, awake, oriented to person, oriented to place , oriented to time, oriented to situation, CN II-XII grossly intact. ABSENT: motor sensory deficit Psychiatric exam: PRESENT: appropriate affect, normal mood. ABSENT: homicidal ideation, suicidal ideation Skin exam: PRESENT: dry, intact, warm. ABSENT: cyanosis, rash Results Laboratory Results: 06/17/18 06:13 06/17/18 06/17/18 06:13 06:13 Sodium 131.4 L Potassium 4.4 Chloride 96 L Carbon Dioxide 21 L Anion Gap 14 BUN 25 H Creatinine 1.18 Est GFR ( Amer) > 60 Est GFR (Non-Af Amer) > 60 Glucose 218 H Serum Osmolality 277 Calcium 7.9 L 06/17/18 06:47 Creatine Kinase 209 H Impressions: Abdomen/Pelvis CT 06/17/18 01:37 IMPRESSION: Pulmonary nodules in the right lung base measuring up to 8 mm, concerning for metastatic disease given the history of prostate cancer. No evidence of bony metastatic disease. Bilateral pleural effusions. Enlarged prostate gland. Bilateral inguinal hernias containing short segments of small bowel with no evidence of an obstruction TECHNICAL DOCUMENTATION: Quality ID # 436: Final reports with documentation of one or more dose reduction techniques (e.g., Automated exposure control, adjustment of the mA and/or kV according to patient size, use of iterative reconstruction technique) 2010 [employer]- All Rights Reserved Status: Image reviewed by me Assessment & Plan - Diagnosis (1) Prostate cancer Is this a current diagnosis for this admission?: Yes Plan: I discussed his case with Dr. Lemons, he recommended restaging with CT of the chest with bone scan, this will help evaluate if he is got new bony lesions or increased size of pulmonary nodules. If there is progression of disease, would recommend holding on radiation therapy and considering endocrine therapy alone. If instead there is no progression of disease, the pulmonary nodule seems similar in size, it is possible that this may be granulomatous disease and it would be reasonable to proceed with standard radiation. I discussed this with the patient who agrees with this approach. - Time Time Spent: Greater than 70 Minutes - Inpatient Certification Based on my medical assessment, after consideration of the patient's comorbidities, presenting symptoms, or acuity I expect that the services needed warrant INPATIENT care.: Yes I certify that my determination is in accordance with my understanding of Medicare's requirements for reasonable and necessary INPATIENT services [42 CFR 412.3e].: Yes Medical Necessity: Need for IV Antibiotics
[2018-06-17] MEDS ORDERED: NORMAL SALINE 1000 ML 1,000 ML IV PRN (08:34)
--- NOTE | 2018-06-17 08:42 | PDOC PROGRESS REPORT ---
Subjective Progress Note for:: 06/17/18 Subjective:: The patient states to feel slightly better this morning. He does not have any nausea or vomiting. Reason For Visit: HYPONATREMIA, PNEUMONIA Physical Exam Vital Signs: Temp Pulse Resp BP Pulse Ox 98.8 F 102 H 17 154/57 H 96 06/17/18 08:38 06/17/18 08:38 06/17/18 08:38 06/17/18 08:38 06/17/18 08:38 Intake & Output 06/16/18 06/17/18 06/18/18 06:59 06:59 06:59 Intake Total 0 150 Output Total 500 Balance -500 150 Weight 81.1 kg General appearance: PRESENT: mild distress Head exam: PRESENT: atraumatic Eye exam: PRESENT: conjunctiva pink Neck exam: PRESENT: carotid bruit. ABSENT: JVD Respiratory exam: PRESENT: crackles, rhonchi Cardiovascular exam: PRESENT: RRR, +S1, +S2 GI/Abdominal exam: PRESENT: normal bowel sounds, soft Extremities exam: PRESENT: tenderness Musculoskeletal exam: PRESENT: ambulatory Neurological exam: PRESENT: alert, awake Results Laboratory Results: 06/17/18 06:13 06/17/18 06/17/18 06:13 06:13 Sodium 131.4 L Potassium 4.4 Chloride 96 L Carbon Dioxide 21 L Anion Gap 14 BUN 25 H Creatinine 1.18 Est GFR ( Amer) > 60 Est GFR (Non-Af Amer) > 60 Glucose 218 H Serum Osmolality 277 Calcium 7.9 L 06/17/18 06:47 Creatine Kinase 209 H Impressions: Abdomen/Pelvis CT 06/17/18 01:37 IMPRESSION: Pulmonary nodules in the right lung base measuring up to 8 mm, concerning for metastatic disease given the history of prostate cancer. No evidence of bony metastatic disease. Bilateral pleural effusions. Enlarged prostate gland. Bilateral inguinal hernias containing short segments of small bowel with no evidence of an obstruction TECHNICAL DOCUMENTATION: Quality ID # 436: Final reports with documentation of one or more dose reduction techniques (e.g., Automated exposure control, adjustment of the mA and/or kV according to patient size, use of iterative reconstruction technique) 2010 [employer]- All Rights Reserved Assessment & Plan - Diagnosis (1) Hyponatremia Is this a current diagnosis for this admission?: Yes Plan: We will obtain the workup for SIADH because of pulmonary nodules (2) Leukocytosis Qualifiers: Leukocytosis type: unspecified Qualified Code(s): D72.829 - Elevated white blood cell count, unspecified Is this a current diagnosis for this admission?: Yes Plan: The workup is in progress to find the cause of leukocytosis (3) Nausea & vomiting Qualifiers: Vomiting type: unspecified Vomiting Intractability: unspecified Qualified Code(s): R11.2 - Nausea with vomiting, unspecified Is this a current diagnosis for this admission?: Yes Plan: We will continue with n.p.o. and IV fluids (4) Prostate cancer Is this a current diagnosis for this admission?: Yes Plan: Possibly worsening. Patient presently is scheduled for radiation treatments. The recent events of new findings on CT. We will need to reconsider the possible treatment (5) CKD (chronic kidney disease) stage 3, GFR 30-59 ml/min Is this a current diagnosis for this admission?: Yes Plan: Most probably secondary to dehydration and increase in lisinopril. Will stop lisinopril and hydrate with fluids so we can perform the CT with contrast
[2018-06-17] MEDS ORDERED: AMLODIPINE BESYLATE 5 MG TABLET PO SCH (10:00)
[2018-06-17] MEDS ORDERED: ASPIRIN 81 MG TABLET, CHEWABLE PO SCH (10:00)
[2018-06-17] MEDS ORDERED: LISINOPRIL 10 MG TABLET PO SCH (10:00)
[2018-06-17] MEDS: HYDRALAZINE HCL 50 MG TABLET PO SCH ×3 (10:09→21:38)
[2018-06-17 11:52] LABS: ANION GAP 14 (5-19); BLOOD UREA NITROGEN 24 mg/dL (7-20); CALCIUM 7.8 mg/dL (8.4-10.2); CARBON DIOXIDE 20 mmol/L (22-30); CHLORIDE 96 mmol/L (98-107); GLUCOSE 182 mg/dL (75-110); POTASSIUM 4.6 mmol/L (3.6-5.0); SODIUM 129.9 mmol/L (137-145)
[2018-06-17 17:17] LABS: ANION GAP 14 (5-19); BLOOD UREA NITROGEN 23 mg/dL (7-20); CALCIUM 7.5 mg/dL (8.4-10.2); CARBON DIOXIDE 21 mmol/L (22-30); CHLORIDE 96 mmol/L (98-107); GLUCOSE 181 mg/dL (75-110); POTASSIUM 4.5 mmol/L (3.6-5.0); SODIUM 130.5 mmol/L (137-145)
[2018-06-17] MEDS: ACETAMINOPHEN 325 MG TABLET PO PRN (20:04)
[2018-06-17 23:12] LABS: ANION GAP 13 (5-19); BLOOD UREA NITROGEN 22 mg/dL (7-20); CALCIUM 7.4 mg/dL (8.4-10.2); CARBON DIOXIDE 20 mmol/L (22-30); CHLORIDE 97 mmol/L (98-107); GLUCOSE 171 mg/dL (75-110); POTASSIUM 4.6 mmol/L (3.6-5.0); SODIUM 129.9 mmol/L (137-145)
[2018-06-18 05:22] LABS: HEMATOCRIT 27.8 % (37.9-51.0); HEMOGLOBIN 9.2 g/dL (13.5-17.0); MEAN CORPUSCULAR HEMOGLOBIN 25.4 pg (27.0-33.4); MEAN CORPUSCULAR HGB CONC 33.1 g/dL (32.0-36.0); MEAN CORPUSCULAR VOLUME 77 fl (80-97); PLATELET COUNT 448 10^3/uL (150-450); RED BLOOD COUNT 3.63 10^6/uL (4.35-5.55); RED CELL DISTRIBUTION WIDTH 16.2 % (11.5-14.0); WHITE BLOOD COUNT 17.4 10^3/uL (4.0-10.5)
[2018-06-18] MEDS: HYDRALAZINE HCL 50 MG TABLET PO SCH ×3 (05:22→21:44)
[2018-06-18] MEDS: LEVOFLOXACIN 750 MG/D5W RTU 750 MG/150 ML RTUPB IV SCH (05:22)
[2018-06-18] MEDS: HEPARIN SOD (PORCINE) 5,000 UNIT/ML 1 ML SYRINGE SUBCUT SCH ×3 (05:22→21:44)
[2018-06-18 05:41] LABS: ABSOLUTE LYMPHOCYTES# (MANUAL) 2.3 10^3/uL (0.5-4.7); ABSOLUTE MONOCYTES # (MANUAL) 1.4 10^3/uL (0.1-1.4); ABSOLUTE NEUTROPHILS# (MANUAL) 13.7 10^3/uL (1.7-8.2); BAND NEUTROPHILS % (MANUAL) 5 % (3-5); BASOPHILS % (MANUAL) 0 % (0-2); EOSINOPHILS % (MANUAL) 0 % (0-6); LYMPHOCYTES % (MANUAL) 13 % (13-45); MONOCYTES % (MANUAL) 8 % (3-13); SEGMENTED NEUTROPHILS % (MAN) 74 % (42-78); TOTAL CELLS COUNTED 100
[2018-06-18 05:43] LABS: OVALOCYTES SLIGHT; SCHISTOCYTES SLIGHT; TARGET CELLS SLIGHT; TOXIC VACUOLATION PRESENT
[2018-06-18 05:44] LABS: ANISOCYTOSIS 1+; PLATELET COMMENT ADEQUATE; POIKILOCYTOSIS SLIGHT
[2018-06-18 05:52] LABS: ANION GAP 14 (5-19); BLOOD UREA NITROGEN 19 mg/dL (7-20); CALCIUM 7.7 mg/dL (8.4-10.2); CARBON DIOXIDE 22 mmol/L (22-30); CHLORIDE 97 mmol/L (98-107); GLUCOSE 175 mg/dL (75-110); POTASSIUM 4.9 mmol/L (3.6-5.0)
--- NOTE | 2018-06-18 08:13 | PDOC PROGRESS REPORT ---
Subjective Progress Note for:: 06/18/18 Subjective:: Patient seems a little bit better today, reviewed labs and his PSA is actually down to 18 from 187. So has had a good response to androgen deprivation therapy already. Reason For Visit: FEVER OF UNKNOWN ORIGIN METASTIC PROSTATE CANCER Physical Exam Vital Signs: Temp Pulse Resp BP Pulse Ox 99.1 F 106 H 20 171/64 H 96 06/18/18 03:33 06/18/18 03:33 06/18/18 03:33 06/18/18 03:33 06/18/18 03:33 Intake & Output 06/17/18 06/18/18 06/19/18 06:59 06:59 06:59 Intake Total 0 1602 Output Total 500 1475 Balance -500 127 Weight 81.1 kg 82.6 kg General appearance: PRESENT: no acute distress, well-developed, well-nourished Head exam: PRESENT: atraumatic, normocephalic Eye exam: PRESENT: conjunctiva pink, EOMI, PERRLA. ABSENT: scleral icterus Ear exam: PRESENT: normal external ear exam Mouth exam: PRESENT: moist, tongue midline Neck exam: ABSENT: carotid bruit, JVD, lymphadenopathy, thyromegaly Respiratory exam: PRESENT: clear to auscultation yuliya. ABSENT: rales, rhonchi, wheezes Cardiovascular exam: PRESENT: RRR. ABSENT: diastolic murmur, rubs, systolic murmur Pulses: PRESENT: normal dorsalis pedis pul Vascular exam: PRESENT: normal capillary refill GI/Abdominal exam: PRESENT: normal bowel sounds, soft. ABSENT: distended, guarding, mass, organolmegaly, rebound, tenderness Rectal exam: PRESENT: deferred Extremities exam: PRESENT: full ROM. ABSENT: calf tenderness, clubbing, pedal edema Neurological exam: PRESENT: alert, awake, oriented to person, oriented to place , oriented to time, oriented to situation, CN II-XII grossly intact. ABSENT: motor sensory deficit Psychiatric exam: PRESENT: appropriate affect, normal mood. ABSENT: homicidal ideation, suicidal ideation Skin exam: PRESENT: dry, intact, warm. ABSENT: cyanosis, rash Results Laboratory Results: 06/18/18 03:51 06/18/18 03:51 06/17/18 06/17/18 06/17/18 06:13 11:15 16:50 WBC RBC Hgb Hct MCV MCH MCHC RDW Plt Count Seg Neutrophils % Lymphocytes % Monocytes % Eosinophils % Basophils % Absolute Neutrophils Absolute Lymphocytes Absolute Monocytes Absolute Eosinophils Absolute Basophils Sodium 129.9 L 130.5 L Potassium 4.6 4.5 Chloride 96 L 96 L Carbon Dioxide 20 L 21 L Anion Gap 14 14 BUN 24 H 23 H Creatinine 1.21 1.21 Est GFR ( Amer) > 60 > 60 Est GFR (Non-Af Amer) 59 L 59 L Glucose 182 H 181 H Calcium 7.8 L 7.5 L Prostate Specific Ag 18.300 H 06/17/18 06/18/18 06/18/18 22:40 03:51 03:51 WBC 17.4 H RBC 3.63 L Hgb 9.2 L Hct 27.8 L MCV 77 L MCH 25.4 L MCHC 33.1 RDW 16.2 H Plt Count 448 Seg Neutrophils % Not Reportable Lymphocytes % Not Reportable Monocytes % Not Reportable Eosinophils % Not Reportable Basophils % Not Reportable Absolute Neutrophils Not Reportable Absolute Lymphocytes Not Reportable Absolute Monocytes Not Reportable Absolute Eosinophils Not Reportable Absolute Basophils Not Reportable Sodium 129.9 L 133.0 L Potassium 4.6 4.9 Chloride 97 L 97 L Carbon Dioxide 20 L 22 Anion Gap 13 14 BUN 22 H 19 Creatinine 1.20 1.06 Est GFR ( Amer) > 60 > 60 Est GFR (Non-Af Amer) 59 L > 60 Glucose 171 H 175 H Calcium 7.4 L 7.7 L Prostate Specific Ag 06/17/18 06:47 Creatine Kinase 209 H Impressions: Abdomen/Pelvis CT 06/17/18 01:37 IMPRESSION: Pulmonary nodules in the right lung base measuring up to 8 mm, concerning for metastatic disease given the history of prostate cancer. No evidence of bony metastatic disease. Bilateral pleural effusions. Enlarged prostate gland. Bilateral inguinal hernias containing short segments of small bowel with no evidence of an obstruction TECHNICAL DOCUMENTATION: Quality ID # 436: Final reports with documentation of one or more dose reduction techniques (e.g., Automated exposure control, adjustment of the mA and/or kV according to patient size, use of iterative reconstruction technique) 2010 [employer]- All Rights Reserved Assessment & Plan - Diagnosis (1) Prostate cancer Is this a current diagnosis for this admission?: Yes Plan: Proceed with CT imaging of the chest as well as bone scan today, has noted previously if this does not show any change in his pulmonary nodules or no new bone lesions, he would go forward with radiation of the prostate as scheduled. If instead he has pulmonary nodules that is enlarged greater than 10 mm and easily accessible by biopsy, we may want to do that before we consider primary radiation. 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 - Time Time Spent with patient: 35 or more minutes
--- NOTE | 2018-06-18 09:32 | PDOC PROGRESS REPORT ---
Subjective Progress Note for:: 06/18/18 Subjective:: The patient states to feel slightly better. He is presently scheduled for a CT. His kidney function has improved. His blood pressure is slightly up. His sodium has improved. Reason For Visit: FEVER OF UNKNOWN ORIGIN METASTIC PROSTATE CANCER Physical Exam Vital Signs: Temp Pulse Resp BP Pulse Ox 98.6 F 99 16 155/63 H 96 06/18/18 09:05 06/18/18 09:05 06/18/18 09:05 06/18/18 09:05 06/18/18 09:05 Intake & Output 06/17/18 06/18/18 06/19/18 06:59 06:59 06:59 Intake Total 0 1602 Output Total 500 1475 Balance -500 127 Weight 81.1 kg 82.6 kg General appearance: PRESENT: mild distress Head exam: PRESENT: atraumatic Eye exam: PRESENT: conjunctiva pink Neck exam: ABSENT: carotid bruit, JVD Respiratory exam: PRESENT: rhonchi Cardiovascular exam: PRESENT: RRR, +S2 GI/Abdominal exam: PRESENT: normal bowel sounds, soft Extremities exam: PRESENT: full ROM Musculoskeletal exam: PRESENT: ambulatory Neurological exam: PRESENT: alert, awake Results Laboratory Results: 06/18/18 03:51 06/18/18 03:51 06/17/18 06/17/18 06/17/18 06:13 11:15 16:50 WBC RBC Hgb Hct MCV MCH MCHC RDW Plt Count Seg Neutrophils % Lymphocytes % Monocytes % Eosinophils % Basophils % Absolute Neutrophils Absolute Lymphocytes Absolute Monocytes Absolute Eosinophils Absolute Basophils Sodium 129.9 L 130.5 L Potassium 4.6 4.5 Chloride 96 L 96 L Carbon Dioxide 20 L 21 L Anion Gap 14 14 BUN 24 H 23 H Creatinine 1.21 1.21 Est GFR ( Amer) > 60 > 60 Est GFR (Non-Af Amer) 59 L 59 L Glucose 182 H 181 H Calcium 7.8 L 7.5 L Prostate Specific Ag 18.300 H 06/17/18 06/18/18 06/18/18 22:40 03:51 03:51 WBC 17.4 H RBC 3.63 L Hgb 9.2 L Hct 27.8 L MCV 77 L MCH 25.4 L MCHC 33.1 RDW 16.2 H Plt Count 448 Seg Neutrophils % Not Reportable Lymphocytes % Not Reportable Monocytes % Not Reportable Eosinophils % Not Reportable Basophils % Not Reportable Absolute Neutrophils Not Reportable Absolute Lymphocytes Not Reportable Absolute Monocytes Not Reportable Absolute Eosinophils Not Reportable Absolute Basophils Not Reportable Sodium 129.9 L 133.0 L Potassium 4.6 4.9 Chloride 97 L 97 L Carbon Dioxide 20 L 22 Anion Gap 13 14 BUN 22 H 19 Creatinine 1.20 1.06 Est GFR ( Amer) > 60 > 60 Est GFR (Non-Af Amer) 59 L > 60 Glucose 171 H 175 H Calcium 7.4 L 7.7 L Prostate Specific Ag 06/17/18 06:47 Creatine Kinase 209 H Impressions: Abdomen/Pelvis CT 06/17/18 01:37 IMPRESSION: Pulmonary nodules in the right lung base measuring up to 8 mm, concerning for metastatic disease given the history of prostate cancer. No evidence of bony metastatic disease. Bilateral pleural effusions. Enlarged prostate gland. Bilateral inguinal hernias containing short segments of small bowel with no evidence of an obstruction TECHNICAL DOCUMENTATION: Quality ID # 436: Final reports with documentation of one or more dose reduction techniques (e.g., Automated exposure control, adjustment of the mA and/or kV according to patient size, use of iterative reconstruction technique) 2010 [employer]- All Rights Reserved Assessment & Plan - Diagnosis (1) Hyponatremia Is this a current diagnosis for this admission?: Yes Plan: Resolved will decrease the IV fluids (2) Leukocytosis Qualifiers: Leukocytosis type: unspecified Qualified Code(s): D72.829 - Elevated white blood cell count, unspecified Is this a current diagnosis for this admission?: Yes Plan: The workup is in progress to find the cause of leukocytosis (3) Nausea & vomiting Qualifiers: Vomiting type: unspecified Vomiting Intractability: unspecified Qualified Code(s): R11.2 - Nausea with vomiting, unspecified Is this a current diagnosis for this admission?: Yes Plan: Resolved continue current treatment (4) Prostate cancer Is this a current diagnosis for this admission?: Yes Plan: Presently being evaluated and followed by the oncologist and radiation oncology (5) CKD (chronic kidney disease) stage 3, GFR 30-59 ml/min Is this a current diagnosis for this admission?: Yes Plan: Improved with rehydration
[2018-06-18] MEDS: AMLODIPINE BESYLATE 5 MG TABLET PO SCH (10:32)
[2018-06-18] MEDS: ASPIRIN 81 MG TABLET, CHEWABLE PO SCH (10:33)
--- NOTE | 2018-06-18 14:29 | RADIOLOGY REPORT (SQ) ---
EXAM DESCRIPTION: NM WHOLE BODY BONE SCAN COMPLETED DATE/TIME: 06/18/2018 1:26 pm REASON FOR STUDY: INDICATION EVAL BONE METS, PROSTATE CANCER COMPARISON: Whole-body bone scan 03/16/2018 CT abdomen pelvis 06/17/2018 RADIONUCLIDE AND DOSE: 20.5 millicuries Tc99m MDP. The route of agent administration: Intravenous. ADDITIONAL DRUGS AND DOSES: None. TECHNIQUE: Routine delayed images at 3 hours post radionuclide injection acquired of the bony skelet on including anterior and posterior whole-body projections and additional focused images as needed. LIMITATIONS: None. FINDINGS: BONES: There are now multiple foci of abnormal increased activity throughout the skeleton worrisome for metastatic lesions. These are scattered throughout the bilateral ribs, humeri, right a nd left hemipelvis, and bilateral proximal femurs. Increased activity throughout the thoracic and arlen mbar spine is also present. Bare area of left knee post total knee replacement. Increased uptake at the right knee and bilateral ankles from osteoarthritis. KIDNEYS: Symmetric excretion without obstruction. OTHER: No other significant finding. IMPRESSION: New diffuse bony foci of increased uptake worrisome for metastatic disease. COMMENT: Quality measure 147: Current bone scan is compared with any available plain radiographs, p rior bone scans, and CT/MRI. TECHNICAL DOCUMENTATION: JOB ID: [id number] [employer]- All Rights Reserved Reading location - IP/workstation name: [email or web address]
--- NOTE | 2018-06-18 14:37 | RADIOLOGY REPORT (SQ) ---
EXAM DESCRIPTION: CT CHEST WITH COMPLETED DATE/TIME: 06/18/2018 1:35 pm REASON FOR STUDY: INDICATION PROSTATE CANCER PULMONARY NODULE COMPARISON: Bone scan 06/18/2018, 03/16/2018 CT abdomen pelvis 06/17/2018, 03/16/2018 CT chest 03/16/2018 TECHNIQUE: CT scan of the chest performed using helical scanning technique with dynamic intravenous contrast injection. Images reviewed with lung, soft tissue and bone windows. Reconstructed coronal and sagittal MPR and MIP images reviewed. All images stored on PACS. All CT scanners at this facility use dose modulation, iterative reconstruction, and/or weight based d osing when appropriate to reduce radiation dose to as low as reasonably achievable (ALARA). [facility]: Dose Right [facility]: CareDose [facility]: Dose Right [facility]: Teradose 4D [facility]: Yo que Vos CONTRAST TYPE AND DOSE: contrast/concentration: Isovue 350.00 mg/ml; Total Contrast Delivered: 80.0 ml; Total Saline Delivered: 55.0 ml RENAL FUNCTION: Creatinine 1.06 RADIATION DOSE: CT Rad equipment meets quality standard of care and radiation dose reduction techniq ues were employed. CTDIvol: 8.2 mGy. DLP: 321 mGy-cm. . LIMITATIONS: None. FINDINGS: LUNGS AND PLEURA: There are now small bilateral pleural effusions, new compared to previou s exams. New 6 mm posterior left upper lobe pulmonary nodule axial image 35. New 8 mm nodule in the periphery of the right upper lobe, axial image 79. Multiple other less than 5 mm pulmonary nodules are scattered throughout the right middle lobe near t he minor fissure. These are stable. There is consolidation in the right and left posterior costophrenic sulci from probable atelectasis. Pneumonia could not entirely be excluded. HILAR AND MEDIASTINAL STRUCTURES: No identified masses or abnormal nodes. HEART AND VASCULAR STRUCTURES: No aneurysm or dissection. No central pulmonary emboli. No pericardi al effusion. HARDWARE: None in the chest. UPPER ABDOMEN: No significant findings. Limited exam. THYROID AND OTHER SOFT TISSUES: No masses. No adenopathy. BONES: Subtle smudgy sclerotic foci are present throughout the ribs and thoracic spine which correlat e with new foci of increased uptake on bone scan today. These findings are worrisome for bony metast atic disease OTHER: No other significant finding. IMPRESSION: New small bilateral pleural effusions New 6 mm posterior left upper lobe pulmonary nodule, 8 mm nodule periphery right upper lobe New subtle smudgy sclerotic foci are present throughout the ribs and thoracic spine which correlate w ith new foci of increased uptake on bone scan today, worrisome for bony metastatic involvement TECHNICAL DOCUMENTATION: JOB ID: [id number] Quality ID # [id number]: Final reports with documentation of one or more dose reduction techniques (e.g., Au tomated exposure control, adjustment of the mA and/or kV according to patient size, use of iterative reconstruction technique) 2010 [employer]- All Rights Reserved Reading location - IP/workstation name: [email or web address]
[2018-06-19] MEDS: ACETAMINOPHEN 325 MG TABLET PO PRN ×4 (04:07→20:13)
[2018-06-19] MEDS: HEPARIN SOD (PORCINE) 5,000 UNIT/ML 1 ML SYRINGE SUBCUT SCH ×3 (05:37→21:09)
[2018-06-19] MEDS: HYDRALAZINE HCL 50 MG TABLET PO SCH ×3 (05:37→21:09)
[2018-06-19] MEDS: LEVOFLOXACIN 750 MG/D5W RTU 750 MG/150 ML RTUPB IV SCH (05:38)
[2018-06-19] MEDS: AMLODIPINE BESYLATE 5 MG TABLET PO SCH (10:01)
[2018-06-19] MEDS: ASPIRIN 81 MG TABLET, CHEWABLE PO SCH (10:02)
--- NOTE | 2018-06-19 11:12 | PDOC PROGRESS REPORT ---
Subjective Progress Note for:: 06/19/18 Subjective:: I reviewed the CT images myself and with the patient, along with the bone scan results, unfortunately there is diffuse bony metastasis, and there are new pulmonary nodules both subcentimeter and too small to biopsy. Today discussed the implications of this with the patient and daughter who is at bedside. Reason For Visit: FEVER OF UNKNOWN ORIGIN METASTIC PROSTATE CANCER Physical Exam Vital Signs: Temp Pulse Resp BP Pulse Ox 99.2 F 94 20 145/58 H 97 06/19/18 08:21 06/19/18 08:21 06/19/18 08:21 06/19/18 08:21 06/19/18 08:21 Intake & Output 06/18/18 06/19/18 06/20/18 06:59 06:59 06:59 Intake Total 1602 2644 150 Output Total 1475 2245 Balance 127 399 150 Weight 82.6 kg 83.5 kg General appearance: PRESENT: no acute distress, well-developed, well-nourished Head exam: PRESENT: atraumatic, normocephalic Eye exam: PRESENT: conjunctiva pink, EOMI, PERRLA. ABSENT: scleral icterus Ear exam: PRESENT: normal external ear exam Mouth exam: PRESENT: moist, tongue midline Neck exam: ABSENT: carotid bruit, JVD, lymphadenopathy, thyromegaly Respiratory exam: PRESENT: clear to auscultation yuliya. ABSENT: rales, rhonchi, wheezes Cardiovascular exam: PRESENT: RRR. ABSENT: diastolic murmur, rubs, systolic murmur Pulses: PRESENT: normal dorsalis pedis pul Vascular exam: PRESENT: normal capillary refill GI/Abdominal exam: PRESENT: normal bowel sounds, soft. ABSENT: distended, guarding, mass, organolmegaly, rebound, tenderness Rectal exam: PRESENT: deferred Extremities exam: PRESENT: full ROM. ABSENT: calf tenderness, clubbing, pedal edema Neurological exam: PRESENT: alert, awake, oriented to person, oriented to place , oriented to time, oriented to situation, CN II-XII grossly intact. ABSENT: motor sensory deficit Psychiatric exam: PRESENT: appropriate affect, normal mood. ABSENT: homicidal ideation, suicidal ideation Skin exam: PRESENT: dry, intact, warm. ABSENT: cyanosis, rash Results Laboratory Results: 06/18/18 03:51 06/18/18 03:51 06/18/18 03:51 Magnesium 1.6 06/17/18 06:47 Creatine Kinase 209 H Impressions: Abdomen/Pelvis CT 06/17/18 01:37 IMPRESSION: Pulmonary nodules in the right lung base measuring up to 8 mm, concerning for metastatic disease given the history of prostate cancer. No evidence of bony metastatic disease. Bilateral pleural effusions. Enlarged prostate gland. Bilateral inguinal hernias containing short segments of small bowel with no evidence of an obstruction TECHNICAL DOCUMENTATION: Quality ID # 436: Final reports with documentation of one or more dose reduction techniques (e.g., Automated exposure control, adjustment of the mA and/or kV according to patient size, use of iterative reconstruction technique) 2010 [employer]- All Rights Reserved Body Scan Nuclear Medicine 06/18/18 00:00 IMPRESSION: New diffuse bony foci of increased uptake worrisome for metastatic disease. Chest CT 06/18/18 00:00 IMPRESSION: New small bilateral pleural effusions New 6 mm posterior left upper lobe pulmonary nodule, 8 mm nodule periphery right upper lobe New subtle smudgy sclerotic foci are present throughout the ribs and thoracic spine which correlate with new foci of increased uptake on bone scan today, worrisome for bony metastatic involvement Assessment & Plan - Diagnosis (1) Prostate cancer Is this a current diagnosis for this admission?: Yes Plan: Does appear to be metastatic disease, will discuss with Dr. Lemons but unfortunately radiation should be put on hold and we should continue with endocrine therapy alone. I will discussed this with his urologist as well and we will take over his oncology care from here. We will set him up for outpatient follow-up and plan to take over his care thereafter. Today spent greater than 45 minutes in discussion and coordination of care with patient and family, discussion with hospitalist team. - Time Time Spent with patient: 35 or more minutes Anticipated discharge: Home Within: within 24 hours
[2018-06-19 11:43] LABS: HEMATOCRIT 28.9 % (37.9-51.0); HEMOGLOBIN 9.4 g/dL (13.5-17.0); MEAN CORPUSCULAR HEMOGLOBIN 24.8 pg (27.0-33.4); MEAN CORPUSCULAR HGB CONC 32.6 g/dL (32.0-36.0); MEAN CORPUSCULAR VOLUME 76 fl (80-97); PLATELET COUNT 436 10^3/uL (150-450); RED CELL DISTRIBUTION WIDTH 16.6 % (11.5-14.0)
[2018-06-19 11:56] LABS: ANION GAP 14 (5-19); BLOOD UREA NITROGEN 15 mg/dL (7-20); CALCIUM 7.8 mg/dL (8.4-10.2); CARBON DIOXIDE 21 mmol/L (22-30); CHLORIDE 91 mmol/L (98-107); GLUCOSE 164 mg/dL (75-110); POTASSIUM 4.6 mmol/L (3.6-5.0); SODIUM 126.4 mmol/L (137-145)
[2018-06-19 12:10] LABS: ABSOLUTE LYMPHOCYTES# (MANUAL) 1.1 10^3/uL (0.5-4.7); ABSOLUTE MONOCYTES # (MANUAL) 0.5 10^3/uL (0.1-1.4); ABSOLUTE NEUTROPHILS# (MANUAL) 14.4 10^3/uL (1.7-8.2); BAND NEUTROPHILS % (MANUAL) 4 % (3-5); BASOPHILS % (MANUAL) 0 % (0-2); EOSINOPHILS % (MANUAL) 0 % (0-6); LYMPHOCYTES % (MANUAL) 7 % (13-45); METAMYELOCYTES % (MANUAL) 1 % (0); MONOCYTES % (MANUAL) 3 % (3-13); MYELOCYTES % (MANUAL) 1 % (0); SEGMENTED NEUTROPHILS % (MAN) 84 % (42-78); TOTAL CELLS COUNTED 100
[2018-06-19 12:13] LABS: ANISOCYTOSIS 1+; HYPOCHROMASIA 1+; OVALOCYTES 2+; PLATELET COMMENT ADEQUATE; PLATELET LARGE PRESENT; POIKILOCYTOSIS 2+; POLYCHROMASIA 1+; ROULEAUX 1+; SCHISTOCYTES SLIGHT; TEAR DROP CELLS SLIGHT; TOXIC GRANULATION 1+; TOXIC VACUOLATION PRESENT
--- NOTE | 2018-06-19 13:01 | PDOC PROGRESS REPORT ---
Subjective Progress Note for:: 06/19/18 Subjective:: Mr. Kaur is a 72 year old male with a past medical history of recently diagnosed prostate cancer and hypertension who presented with generalized weakness, headache and nausea. He was noted to have leukocytosis and hyponatremia. His CT showed multiple pulmonary nodules and bony lesions on the ribs and thoracic spine concerning for metastases. Whole body NM scan was done and are suggestive that lesions are likely metastatic foci. Patient was updated on results this morning. He was tearful and was consoled. His sodium just came back lower than on admission at 126. He denies symptoms this morning including headache, dizziness or nausea. He did say that he has been drinking a lot of water more than the usual in the past week prior to admission (>5 bottles of 16 oz water/day) as he has been feeling very thirsty. Reason For Visit: FEVER OF UNKNOWN ORIGIN METASTIC PROSTATE CANCER Physical Exam Vital Signs: Temp Pulse Resp BP Pulse Ox 99.2 F 94 20 145/58 H 97 06/19/18 08:21 06/19/18 08:21 06/19/18 08:21 06/19/18 08:21 06/19/18 08:21 Intake & Output 06/18/18 06/19/18 06/20/18 06:59 06:59 06:59 Intake Total 1602 2644 150 Output Total 1475 2245 Balance 127 399 150 Weight 182 lb 1.629 oz 184 lb 1.376 oz General appearance: PRESENT: no acute distress, well-developed, well-nourished Head exam: PRESENT: atraumatic, normocephalic Eye exam: PRESENT: conjunctiva pink, EOMI, PERRLA. ABSENT: scleral icterus Ear exam: PRESENT: normal external ear exam Mouth exam: PRESENT: moist, tongue midline Neck exam: ABSENT: carotid bruit, JVD, lymphadenopathy, thyromegaly Respiratory exam: PRESENT: clear to auscultation yuliya. ABSENT: rales, rhonchi, wheezes Cardiovascular exam: PRESENT: RRR. ABSENT: diastolic murmur, rubs, systolic murmur Pulses: PRESENT: normal dorsalis pedis pul Vascular exam: PRESENT: normal capillary refill GI/Abdominal exam: PRESENT: normal bowel sounds, soft. ABSENT: distended, guarding, mass, organolmegaly, rebound, tenderness Rectal exam: PRESENT: deferred Neurological exam: PRESENT: alert, awake, oriented to person, oriented to place , oriented to time, oriented to situation, CN II-XII grossly intact. ABSENT: motor sensory deficit Results Laboratory Results: 06/19/18 11:00 06/19/18 11:00 06/18/18 06/19/18 06/19/18 03:51 11:00 11:00 WBC 16.0 H RBC 3.80 L Hgb 9.4 L Hct 28.9 L MCV 76 L MCH 24.8 L MCHC 32.6 RDW 16.6 H Plt Count 436 Seg Neutrophils % Not Reportable Lymphocytes % Not Reportable Monocytes % Not Reportable Eosinophils % Not Reportable Basophils % Not Reportable Absolute Neutrophils Not Reportable Absolute Lymphocytes Not Reportable Absolute Monocytes Not Reportable Absolute Eosinophils Not Reportable Absolute Basophils Not Reportable Sodium 126.4 L Potassium 4.6 Chloride 91 L Carbon Dioxide 21 L Anion Gap 14 BUN 15 Creatinine 1.03 Est GFR ( Amer) > 60 Est GFR (Non-Af Amer) > 60 Glucose 164 H Calcium 7.8 L Magnesium 1.6 06/17/18 06:47 Creatine Kinase 209 H Impressions: Abdomen/Pelvis CT 06/17/18 01:37 IMPRESSION: Pulmonary nodules in the right lung base measuring up to 8 mm, concerning for metastatic disease given the history of prostate cancer. No evidence of bony metastatic disease. Bilateral pleural effusions. Enlarged prostate gland. Bilateral inguinal hernias containing short segments of small bowel with no evidence of an obstruction TECHNICAL DOCUMENTATION: Quality ID # 436: Final reports with documentation of one or more dose reduction techniques (e.g., Automated exposure control, adjustment of the mA and/or kV according to patient size, use of iterative reconstruction technique) 2010 [employer]- All Rights Reserved Body Scan Nuclear Medicine 06/18/18 00:00 IMPRESSION: New diffuse bony foci of increased uptake worrisome for metastatic disease. Chest CT 06/18/18 00:00 IMPRESSION: New small bilateral pleural effusions New 6 mm posterior left upper lobe pulmonary nodule, 8 mm nodule periphery right upper lobe New subtle smudgy sclerotic foci are present throughout the ribs and thoracic spine which correlate with new foci of increased uptake on bone scan today, worrisome for bony metastatic involvement Assessment & Plan - Diagnosis (1) Acute hyponatremia Is this a current diagnosis for this admission?: Yes Plan: Sodium trended down to 126 today. He has hypotonic hypovolemia with serum osm of 277. He appears euvolemic. Urine osm is 389 and urine sodium is 19. Possible SIADH form lung nodules vs primary polydipsia. Either are treated with fluid restriction. Will repeat BMP later today. (2) Prostate cancer Is this a current diagnosis for this admission?: Yes Plan: Prostate CA with possible lung and bony metastases. Oncology following. Patient will follow with Dr. Eason next week for endocrine therapy. (3) Leukocytosis Qualifiers: Leukocytosis type: unspecified Qualified Code(s): D72.829 - Elevated white blood cell count, unspecified Is this a current diagnosis for this admission?: Yes Plan: Possible prostatitis. On Levaquin. (4) Hypertension Qualifiers: Hypertension type: unspecified Qualified Code(s): I10 - Essential (primary ) hypertension Is this a current diagnosis for this admission?: Yes Plan: Continue amlodipine and hydralazine. - Time Time Spent with patient: 25-34 minutes
[2018-06-19] MEDS: SODIUM CHLORIDE 1 GM TABLET PO SCH ×2 (15:40→21:10)
--- NOTE | 2018-06-19 17:05 | Progress Note ---
Provider Note Provider Note: Patient wants to be full code for now and will pursue further treatment options for his cancer when he follows up with oncology next week.
[2018-06-19 18:23] LABS: ANION GAP 12 (5-19); BLOOD UREA NITROGEN 17 mg/dL (7-20); CALCIUM 7.8 mg/dL (8.4-10.2); CARBON DIOXIDE 21 mmol/L (22-30); CHLORIDE 94 mmol/L (98-107); GLUCOSE 144 mg/dL (75-110); POTASSIUM 4.8 mmol/L (3.6-5.0); SODIUM 127.2 mmol/L (137-145)
[2018-06-19] MEDS ORDERED: GABAPENTIN 300 MG CAPSULE PO ONE (21:30)
[2018-06-20] MEDS: ACETAMINOPHEN 325 MG TABLET PO PRN (02:45)
[2018-06-20] MEDS: HYDRALAZINE HCL 50 MG TABLET PO SCH ×3 (05:40→21:49)
[2018-06-20] MEDS: HEPARIN SOD (PORCINE) 5,000 UNIT/ML 1 ML SYRINGE SUBCUT SCH ×3 (05:40→21:50)
[2018-06-20 06:26] LABS: ANION GAP 11 (5-19); BLOOD UREA NITROGEN 15 mg/dL (7-20); CALCIUM 7.7 mg/dL (8.4-10.2); CARBON DIOXIDE 22 mmol/L (22-30); CHLORIDE 96 mmol/L (98-107); GLUCOSE 146 mg/dL (75-110); POTASSIUM 4.7 mmol/L (3.6-5.0); SODIUM 128.8 mmol/L (137-145)
[2018-06-20] MEDS: GABAPENTIN 300 MG CAPSULE PO SCH ×2 (10:59→17:53)
[2018-06-20] MEDS: SODIUM CHLORIDE 1 GM TABLET PO SCH ×2 (10:59→21:50)
[2018-06-20] MEDS: LEVOFLOXACIN 500 MG TABLET PO SCH (11:00)
[2018-06-20] MEDS: AMLODIPINE BESYLATE 5 MG TABLET PO SCH (11:01)
[2018-06-20] MEDS: ASPIRIN 81 MG TABLET, CHEWABLE PO SCH (11:02)
[2018-06-20] MEDS: HYDROCODONE/ACETAMINOPHEN 5-325 MG TABLET PO PRN ×2 (11:03→21:50)
--- NOTE | 2018-06-20 12:26 | PDOC PROGRESS REPORT ---
Subjective Progress Note for:: 06/20/18 Subjective:: Mr. Kaur is a 72 year old male with a past medical history of recently diagnosed prostate cancer and hypertension who presented with generalized weakness, headache and nausea. He was noted to have leukocytosis and hyponatremia. His CT showed multiple pulmonary nodules and bony lesions on the ribs and thoracic spine concerning for metastases. Whole body NM scan was done and are suggestive that lesions are likely metastatic foci. Results have been discussed with him yesterday. His sodium just came back lower yesterday at 126. He did say that he has been drinking a lot of water more than the usual in the past week prior to admission (>5 bottles of 16 oz water/day) as he has been feeling very thirsty as well since admission. Fluid restriction was started yesterday. His sodium did slightly improve to 128 today. No acute event overnight but he says he feels weak today and is complaining of lower back pain. He denies headache, dizziness or nausea. Reason For Visit: FEVER OF UNKNOWN ORIGIN METASTIC PROSTATE CANCER Physical Exam Vital Signs: Temp Pulse Resp BP Pulse Ox 99.6 F 95 16 158/57 H 95 06/20/18 08:00 06/20/18 08:00 06/20/18 08:00 06/20/18 08:00 06/20/18 08:00 Intake & Output 06/19/18 06/20/18 06/21/18 06:59 06:59 06:59 Intake Total 2644 1584 Output Total 2245 1875 200 Balance 399 -291 -200 Weight 184 lb 1.376 oz 184 lb 15.485 oz General appearance: PRESENT: no acute distress, well-developed, well-nourished Head exam: PRESENT: atraumatic, normocephalic Eye exam: PRESENT: conjunctiva pink, EOMI, PERRLA. ABSENT: scleral icterus Ear exam: PRESENT: normal external ear exam Mouth exam: PRESENT: moist, tongue midline Neck exam: ABSENT: carotid bruit, JVD, lymphadenopathy, thyromegaly Respiratory exam: PRESENT: clear to auscultation yuliya. ABSENT: rales, rhonchi, wheezes Cardiovascular exam: PRESENT: RRR. ABSENT: diastolic murmur, rubs, systolic murmur Pulses: PRESENT: normal dorsalis pedis pul GI/Abdominal exam: PRESENT: normal bowel sounds, soft. ABSENT: distended, guarding, mass, organolmegaly, rebound, tenderness Rectal exam: PRESENT: deferred Extremities exam: PRESENT: full ROM. ABSENT: calf tenderness, clubbing, pedal edema Neurological exam: PRESENT: alert, awake, oriented to person, oriented to place , oriented to time, oriented to situation, CN II-XII grossly intact. ABSENT: motor sensory deficit Results Laboratory Results: 06/19/18 11:00 06/20/18 05:38 06/19/18 06/19/18 06/20/18 11:00 18:00 05:38 Sodium 127.2 L 128.8 L Potassium 4.8 4.7 Chloride 94 L 96 L Carbon Dioxide 21 L 22 Anion Gap 12 11 BUN 17 15 Creatinine 1.01 1.00 Est GFR ( Amer) > 60 > 60 Est GFR (Non-Af Amer) > 60 > 60 Glucose 144 H 146 H Calcium 7.8 L 7.7 L TSH 1.85 06/17/18 06:47 Creatine Kinase 209 H Impressions: Abdomen/Pelvis CT 06/17/18 01:37 IMPRESSION: Pulmonary nodules in the right lung base measuring up to 8 mm, concerning for metastatic disease given the history of prostate cancer. No evidence of bony metastatic disease. Bilateral pleural effusions. Enlarged prostate gland. Bilateral inguinal hernias containing short segments of small bowel with no evidence of an obstruction TECHNICAL DOCUMENTATION: Quality ID # 436: Final reports with documentation of one or more dose reduction techniques (e.g., Automated exposure control, adjustment of the mA and/or kV according to patient size, use of iterative reconstruction technique) 2010 [employer]- All Rights Reserved Body Scan Nuclear Medicine 06/18/18 00:00 IMPRESSION: New diffuse bony foci of increased uptake worrisome for metastatic disease. Chest CT 06/18/18 00:00 IMPRESSION: New small bilateral pleural effusions New 6 mm posterior left upper lobe pulmonary nodule, 8 mm nodule periphery right upper lobe New subtle smudgy sclerotic foci are present throughout the ribs and thoracic spine which correlate with new foci of increased uptake on bone scan today, worrisome for bony metastatic involvement Assessment & Plan - Diagnosis (1) Acute hyponatremia Is this a current diagnosis for this admission?: Yes Plan: Fluid restriction was started yesterday. Sodium has slightly improved to 128 today from 126. He has hypotonic hypovolemia with serum osm of 277. He appears euvolemic. Urine osm is 389 and urine sodium is 19. Hyponatremia could be from a combination of possible SIADH form lung nodules vs primary polydipsia. Either are treated with fluid restriction. Repeat later this afternoon. (2) Prostate cancer Is this a current diagnosis for this admission?: Yes Plan: Prostate CA with possible lung and bony metastases. Oncology following. Patient will follow with Dr. Eason next week for endocrine therapy. (3) Leukocytosis Qualifiers: Leukocytosis type: unspecified Qualified Code(s): D72.829 - Elevated white blood cell count, unspecified Is this a current diagnosis for this admission?: Yes Plan: Possible prostatitis. On Levaquin. (4) Hypertension Qualifiers: Hypertension type: unspecified Qualified Code(s): I10 - Essential (primary ) hypertension Is this a current diagnosis for this admission?: Yes Plan: Continue amlodipine and hydralazine. - Time Time Spent with patient: 15-24 minutes
[2018-06-20 17:10] LABS: ANION GAP 13 (5-19); BLOOD UREA NITROGEN 16 mg/dL (7-20); CALCIUM 7.7 mg/dL (8.4-10.2); CARBON DIOXIDE 22 mmol/L (22-30); CHLORIDE 95 mmol/L (98-107); GLUCOSE 154 mg/dL (75-110); POTASSIUM 4.8 mmol/L (3.6-5.0); SODIUM 129.7 mmol/L (137-145)
[2018-06-21] MEDS: ACETAMINOPHEN 325 MG TABLET PO PRN ×3 (00:16→20:15)
[2018-06-21] MEDS: HEPARIN SOD (PORCINE) 5,000 UNIT/ML 1 ML SYRINGE SUBCUT SCH ×3 (05:29→21:21)
[2018-06-21] MEDS: HYDROCODONE/ACETAMINOPHEN 5-325 MG TABLET PO PRN ×3 (05:29→21:22)
[2018-06-21] MEDS: HYDRALAZINE HCL 50 MG TABLET PO SCH ×3 (05:29→21:21)
--- NOTE | 2018-06-21 08:14 | PDOC PROGRESS REPORT ---
Subjective Progress Note for:: 06/21/18 Subjective:: Did not d/c home b/c of hyponatremia, improved on fluid restriction, Dr. Romero has seen pt, getting nephrology involved for recs. Discussed findings w/ Dr. Lemons, d/c radiation plans since mets noted on imaging. Reason For Visit: FEVER OF UNKNOWN ORIGIN METASTIC PROSTATE CANCER Physical Exam Vital Signs: Temp Pulse Resp BP Pulse Ox 98.5 F 93 16 146/68 H 96 06/21/18 04:00 06/21/18 07:00 06/21/18 04:00 06/21/18 04:00 06/21/18 04:00 Intake & Output 06/20/18 06/21/18 06/22/18 06:59 06:59 06:59 Intake Total 1584 960 Output Total 1875 775 Balance -291 185 Weight 83.9 kg 82.2 kg General appearance: PRESENT: no acute distress, well-developed, well-nourished Head exam: PRESENT: atraumatic, normocephalic Eye exam: PRESENT: conjunctiva pink, EOMI, PERRLA. ABSENT: scleral icterus Ear exam: PRESENT: normal external ear exam Mouth exam: PRESENT: moist, tongue midline Neck exam: ABSENT: carotid bruit, JVD, lymphadenopathy, thyromegaly Respiratory exam: PRESENT: clear to auscultation yuliya. ABSENT: rales, rhonchi, wheezes Cardiovascular exam: PRESENT: RRR. ABSENT: diastolic murmur, rubs, systolic murmur Pulses: PRESENT: normal dorsalis pedis pul Vascular exam: PRESENT: normal capillary refill GI/Abdominal exam: PRESENT: normal bowel sounds, soft. ABSENT: distended, guarding, mass, organolmegaly, rebound, tenderness Rectal exam: PRESENT: deferred Extremities exam: PRESENT: full ROM. ABSENT: calf tenderness, clubbing, pedal edema Neurological exam: PRESENT: alert, awake, oriented to person, oriented to place , oriented to time, oriented to situation, CN II-XII grossly intact. ABSENT: motor sensory deficit Psychiatric exam: PRESENT: appropriate affect, normal mood. ABSENT: homicidal ideation, suicidal ideation Skin exam: PRESENT: dry, intact, warm. ABSENT: cyanosis, rash Results Laboratory Results: 06/19/18 11:00 06/20/18 16:50 06/20/18 16:50 Sodium 129.7 L Potassium 4.8 Chloride 95 L Carbon Dioxide 22 Anion Gap 13 BUN 16 Creatinine 1.06 Est GFR ( Amer) > 60 Est GFR (Non-Af Amer) > 60 Glucose 154 H Calcium 7.7 L 06/17/18 06:47 Creatine Kinase 209 H Impressions: Abdomen/Pelvis CT 06/17/18 01:37 IMPRESSION: Pulmonary nodules in the right lung base measuring up to 8 mm, concerning for metastatic disease given the history of prostate cancer. No evidence of bony metastatic disease. Bilateral pleural effusions. Enlarged prostate gland. Bilateral inguinal hernias containing short segments of small bowel with no evidence of an obstruction TECHNICAL DOCUMENTATION: Quality ID # [id number]: Final reports with documentation of one or more dose reduction techniques (e.g., Automated exposure control, adjustment of the mA and/or kV according to patient size, use of iterative reconstruction technique) 2010 [employer]- All Rights Reserved Body Scan Nuclear Medicine 06/18/18 00:00 IMPRESSION: New diffuse bony foci of increased uptake worrisome for metastatic disease. Chest CT 06/18/18 00:00 IMPRESSION: New small bilateral pleural effusions New 6 mm posterior left upper lobe pulmonary nodule, 8 mm nodule periphery right upper lobe New subtle smudgy sclerotic foci are present throughout the ribs and thoracic spine which correlate with new foci of increased uptake on bone scan today, worrisome for bony metastatic involvement Assessment & Plan - Diagnosis (1) Prostate cancer Is this a current diagnosis for this admission?: Yes Plan: f/u in our office in 2 wk, today spent >35 m in discussion w/ pt, coordination of care - Time Time Spent with patient: 35 or more minutes
--- NOTE | 2018-06-21 08:22 | PDOC PROGRESS REPORT ---
Subjective Progress Note for:: 06/21/18 Subjective:: The patient states to feel slightly better. He has been out of bed to chair. Discussed with oncology and nephrology about his hypo-natremia. 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 Reason For Visit: FEVER OF UNKNOWN ORIGIN METASTIC PROSTATE CANCER Physical Exam Vital Signs: Temp Pulse Resp BP Pulse Ox 98.5 F 93 16 146/68 H 96 06/21/18 04:00 06/21/18 07:00 06/21/18 04:00 06/21/18 04:00 06/21/18 04:00 Intake & Output 06/20/18 06/21/18 06/22/18 06:59 06:59 06:59 Intake Total 1584 960 Output Total 1875 775 Balance -291 185 Weight 83.9 kg 82.2 kg General appearance: PRESENT: mild distress Head exam: PRESENT: atraumatic Eye exam: PRESENT: conjunctiva pink Neck exam: ABSENT: carotid bruit, JVD Respiratory exam: PRESENT: crackles Cardiovascular exam: PRESENT: RRR, +S1, +S2 GI/Abdominal exam: PRESENT: normal bowel sounds, soft Extremities exam: PRESENT: full ROM Musculoskeletal exam: PRESENT: ambulatory Neurological exam: PRESENT: alert, awake Results Laboratory Results: 06/19/18 11:00 06/20/18 16:50 06/20/18 16:50 Sodium 129.7 L Potassium 4.8 Chloride 95 L Carbon Dioxide 22 Anion Gap 13 BUN 16 Creatinine 1.06 Est GFR ( Amer) > 60 Est GFR (Non-Af Amer) > 60 Glucose 154 H Calcium 7.7 L 06/17/18 06:47 Creatine Kinase 209 H Impressions: Abdomen/Pelvis CT 06/17/18 01:37 IMPRESSION: Pulmonary nodules in the right lung base measuring up to 8 mm, concerning for metastatic disease given the history of prostate cancer. No evidence of bony metastatic disease. Bilateral pleural effusions. Enlarged prostate gland. Bilateral inguinal hernias containing short segments of small bowel with no evidence of an obstruction TECHNICAL DOCUMENTATION: Quality ID # [id number]: Final reports with documentation of one or more dose reduction techniques (e.g., Automated exposure control, adjustment of the mA and/or kV according to patient size, use of iterative reconstruction technique) 2010 [employer]- All Rights Reserved Body Scan Nuclear Medicine 06/18/18 00:00 IMPRESSION: New diffuse bony foci of increased uptake worrisome for metastatic disease. 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 Will consult nephrology. (2) Leukocytosis Qualifiers: Leukocytosis type: unspecified Qualified Code(s): D72.829 - Elevated white blood cell count, unspecified Is this a current diagnosis for this admission?: Yes Plan: The workup is in progress to find the cause of leukocytosis (3) Nausea & vomiting Qualifiers: Vomiting type: unspecified Vomiting Intractability: unspecified Qualified Code(s): R11.2 - Nausea with vomiting, unspecified Is this a current diagnosis for this admission?: Yes (4) Prostate cancer Is this a current diagnosis for this admission?: Yes Plan: At this point there is metastatic disease and the patient is being followed by the oncologist and will probably start hormonal therapy. (5) CKD (chronic kidney disease) stage 3, GFR 30-59 ml/min Is this a current diagnosis for this admission?: Yes (6) Hypertension Qualifiers: Hypertension type: unspecified Qualified Code(s): I10 - Essential (primary ) hypertension Is this a current diagnosis for this admission?: Yes Plan: Continue current medications
[2018-06-21] MEDS: GABAPENTIN 300 MG CAPSULE PO SCH ×2 (09:39→17:11)
[2018-06-21] MEDS: ASPIRIN 81 MG TABLET, CHEWABLE PO SCH (09:39)
[2018-06-21] MEDS: SODIUM CHLORIDE 1 GM TABLET PO SCH ×2 (09:39→21:23)
[2018-06-21] MEDS: LEVOFLOXACIN 500 MG TABLET PO SCH (09:39)
[2018-06-21] MEDS: AMLODIPINE BESYLATE 5 MG TABLET PO SCH (09:39)
[2018-06-21] MEDS ORDERED: NORMAL SALINE 1000 ML 1,000 ML IV PRN (11:19)
[2018-06-21] MEDS: LACTULOSE SYRUP 20 GM/30 ML UDCUP PO SCH ×2 (11:59→21:21)
[2018-06-21] MEDS ORDERED: LACTULOSE SYRUP 20 GM/30 ML UDCUP PO SCH (12:00)
[2018-06-21 15:22] LABS: PATH REVIEW PATHOLOGIST REVIEWED
[2018-06-21 18:41] LABS: ANION GAP 13 (5-19); BLOOD UREA NITROGEN 18 mg/dL (7-20); CALCIUM 7.7 mg/dL (8.4-10.2); CARBON DIOXIDE 23 mmol/L (22-30); CHLORIDE 92 mmol/L (98-107); GLUCOSE 144 mg/dL (75-110); POTASSIUM 4.5 mmol/L (3.6-5.0); SODIUM 127.7 mmol/L (137-145)
[2018-06-21] MEDS: NORMAL SALINE 1000 ML 1,000 ML IV PRN (23:00)
[2018-06-22] MEDS: LACTULOSE SYRUP 20 GM/30 ML UDCUP PO SCH ×3 (06:32→22:03)
[2018-06-22] MEDS: HEPARIN SOD (PORCINE) 5,000 UNIT/ML 1 ML SYRINGE SUBCUT SCH ×3 (06:32→22:02)
[2018-06-22] MEDS: HYDRALAZINE HCL 50 MG TABLET PO SCH ×3 (06:33→22:02)
[2018-06-22] MEDS: ACETAMINOPHEN 325 MG TABLET PO PRN (06:33)
[2018-06-22 06:41] LABS: ABSOLUTE RETICS # 0.046 10^6/uL (0.028-0.122); RETICULOCYTE COUNT (AUTO) 1.36 % (0.66-2.85)
[2018-06-22 07:07] LABS: ANION GAP 15 (5-19); BLOOD UREA NITROGEN 19 mg/dL (7-20); CALCIUM 7.6 mg/dL (8.4-10.2); CARBON DIOXIDE 20 mmol/L (22-30); CHLORIDE 95 mmol/L (98-107); GLUCOSE 178 mg/dL (75-110); IRON(TIBC) 10.5 ug/dL (49-181); POTASSIUM 4.5 mmol/L (3.6-5.0); SODIUM 129.5 mmol/L (137-145)
--- NOTE | 2018-06-22 07:46 | PDOC PROGRESS REPORT ---
Subjective Progress Note for:: 06/22/18 Subjective:: No acute events overnight but feels very weak and is very concerned about going home, he notes that he doesn't feel he can get up w/out assistance although nursing notes he walked up and down the [place] w/ walker and nursing assist. I ordered PT/OT to eval pt, but I told pt he should be appropriate for home PT, most likely deconditioned from the hospital stay Reason For Visit: FEVER OF UNKNOWN ORIGIN METASTIC PROSTATE CANCER Physical Exam Vital Signs: Temp Pulse Resp BP Pulse Ox 101.3 F H 107 H 18 169/70 H 94 06/22/18 04:02 06/22/18 04:02 06/22/18 04:02 06/22/18 04:02 06/22/18 04:02 Intake & Output 06/21/18 06/22/18 06/23/18 06:59 06:59 06:59 Intake Total 960 820 Output Total 775 900 Balance 185 -80 Weight 82.2 kg 82.2 kg General appearance: PRESENT: no acute distress, well-developed, well-nourished Head exam: PRESENT: atraumatic, normocephalic Eye exam: PRESENT: conjunctiva pink, EOMI, PERRLA. ABSENT: scleral icterus Ear exam: PRESENT: normal external ear exam Mouth exam: PRESENT: moist, tongue midline Neck exam: ABSENT: carotid bruit, JVD, lymphadenopathy, thyromegaly Respiratory exam: PRESENT: clear to auscultation yuliya. ABSENT: rales, rhonchi, wheezes Cardiovascular exam: PRESENT: RRR. ABSENT: diastolic murmur, rubs, systolic murmur Pulses: PRESENT: normal dorsalis pedis pul Vascular exam: PRESENT: normal capillary refill GI/Abdominal exam: PRESENT: normal bowel sounds, soft. ABSENT: distended, guarding, mass, organolmegaly, rebound, tenderness Rectal exam: PRESENT: deferred Extremities exam: PRESENT: full ROM. ABSENT: calf tenderness, clubbing, pedal edema Neurological exam: PRESENT: alert, awake, oriented to person, oriented to place , oriented to time, oriented to situation, CN II-XII grossly intact. ABSENT: motor sensory deficit Psychiatric exam: PRESENT: appropriate affect, normal mood. ABSENT: homicidal ideation, suicidal ideation Skin exam: PRESENT: dry, intact, warm. ABSENT: cyanosis, rash Results Laboratory Results: 06/19/18 11:00 06/22/18 05:20 06/21/18 06/22/18 06/22/18 18:09 05:20 05:20 Retic Count (auto) 1.36 Absolute Retic 0.046 Sodium 127.7 L 129.5 L Potassium 4.5 4.5 Chloride 92 L 95 L Carbon Dioxide 23 20 L Anion Gap 13 15 BUN 18 19 Creatinine 1.13 1.14 Est GFR ( Amer) > 60 > 60 Est GFR (Non-Af Amer) > 60 > 60 Glucose 144 H 178 H Calcium 7.7 L 7.6 L Iron 10.5 L TIBC 173 L % Saturation 6 06/17/18 04:54 Blood Blood Culture - Final NO GROWTH IN 5 DAYS 06/17/18 06:47 Creatine Kinase 209 H Impressions: Abdomen/Pelvis CT 06/17/18 01:37 IMPRESSION: Pulmonary nodules in the right lung base measuring up to 8 mm, concerning for metastatic disease given the history of prostate cancer. No evidence of bony metastatic disease. Bilateral pleural effusions. Enlarged prostate gland. Bilateral inguinal hernias containing short segments of small bowel with no evidence of an obstruction TECHNICAL DOCUMENTATION: Quality ID # 436: Final reports with documentation of one or more dose reduction techniques (e.g., Automated exposure control, adjustment of the mA and/or kV according to patient size, use of iterative reconstruction technique) 2010 [employer]- All Rights Reserved Body Scan Nuclear Medicine 06/18/18 00:00 IMPRESSION: New diffuse bony foci of increased uptake worrisome for metastatic disease. Chest CT 06/18/18 00:00 IMPRESSION: New small bilateral pleural effusions New 6 mm posterior left upper lobe pulmonary nodule, 8 mm nodule periphery right upper lobe New subtle smudgy sclerotic foci are present throughout the ribs and thoracic spine which correlate with new foci of increased uptake on bone scan today, worrisome for bony metastatic involvement Assessment & Plan - Diagnosis (1) Prostate cancer Is this a current diagnosis for this admission?: Yes Plan: PT/OT consult, mineral oil enema x 2 if needed today, f/u as outpt for cont rx
[2018-06-22 08:15] LABS: FOLATE 5.11 ng/mL (>2.76)
--- NOTE | 2018-06-22 08:24 | PDOC PROGRESS REPORT ---
Subjective Progress Note for:: 06/22/18 Subjective:: The patient is complaining of not feeling well. He is complaining of being weak. He has difficulty according to him getting up out of bed on his own. He does not have any help at home. His is disabled also. Discussed the possibility of rehab to improve his stamina and health. The patient is agreeable to it. Advised patient that because of the metastasis of his prostate cancer they are considering the endocrine therapy and not radiation. He would have to follow- up with Dr. Hermann mathis as an outpatient to start the treatment Reason For Visit: FEVER OF UNKNOWN ORIGIN METASTIC PROSTATE CANCER Physical Exam Vital Signs: Temp Pulse Resp BP Pulse Ox 101.3 F H 107 H 18 169/70 H 94 06/22/18 04:02 06/22/18 04:02 06/22/18 04:02 06/22/18 04:02 06/22/18 04:02 Intake & Output 06/21/18 06/22/18 06/23/18 06:59 06:59 06:59 Intake Total 960 820 Output Total 775 900 Balance 185 -80 Weight 82.2 kg 82.2 kg General appearance: PRESENT: mild distress Head exam: PRESENT: atraumatic Eye exam: PRESENT: conjunctiva pink Neck exam: ABSENT: carotid bruit, JVD Respiratory exam: PRESENT: clear to auscultation yuliya Cardiovascular exam: PRESENT: RRR, +S1, +S2 GI/Abdominal exam: PRESENT: soft Extremities exam: PRESENT: full ROM, tenderness Musculoskeletal exam: PRESENT: tenderness Neurological exam: PRESENT: alert, awake Psychiatric exam: PRESENT: anxious, depressed, flat affect Results Laboratory Results: 06/19/18 11:00 06/22/18 05:20 06/21/18 06/22/18 06/22/18 18:09 05:20 05:20 Retic Count (auto) Absolute Retic Sodium 127.7 L 129.5 L Potassium 4.5 4.5 Chloride 92 L 95 L Carbon Dioxide 23 20 L Anion Gap 13 15 BUN 18 19 Creatinine 1.13 1.14 Est GFR ( Amer) > 60 > 60 Est GFR (Non-Af Amer) > 60 > 60 Glucose 144 H 178 H Serum Osmolality 270 L Calcium 7.7 L 7.6 L Iron 10.5 L TIBC 173 L % Saturation 6 Ferritin > 1000.00 H Vitamin B12 349.0 Folate 5.11 06/22/18 05:20 Retic Count (auto) 1.36 Absolute Retic 0.046 Sodium Potassium Chloride Carbon Dioxide Anion Gap BUN Creatinine Est GFR ( Amer) Est GFR (Non-Af Amer) Glucose Serum Osmolality Calcium Iron TIBC % Saturation Ferritin Vitamin B12 Folate 06/17/18 04:54 Blood Blood Culture - Final NO GROWTH IN 5 DAYS 06/17/18 06:47 Creatine Kinase 209 H Impressions: Abdomen/Pelvis CT 06/17/18 01:37 IMPRESSION: Pulmonary nodules in the right lung base measuring up to 8 mm, concerning for metastatic disease given the history of prostate cancer. No evidence of bony metastatic disease. Bilateral pleural effusions. Enlarged prostate gland. Bilateral inguinal hernias containing short segments of small bowel with no evidence of an obstruction TECHNICAL DOCUMENTATION: Quality ID # 436: Final reports with documentation of one or more dose reduction techniques (e.g., Automated exposure control, adjustment of the mA and/or kV according to patient size, use of iterative reconstruction technique) 2010 [employer]- All Rights Reserved Body Scan Nuclear Medicine 06/18/18 00:00 IMPRESSION: New diffuse bony foci of increased uptake worrisome for metastatic disease. Chest CT 06/18/18 00:00 IMPRESSION: New small bilateral pleural effusions New 6 mm posterior left upper lobe pulmonary nodule, 8 mm nodule periphery right upper lobe New subtle smudgy sclerotic foci are present throughout the ribs and thoracic spine which correlate with new foci of increased uptake on bone scan today, worrisome for bony metastatic involvement Assessment & Plan - Diagnosis (1) Hyponatremia Is this a current diagnosis for this admission?: Yes Plan: Presently being followed by the static balancer. He is receiving IV fluids (2) Leukocytosis Qualifiers: Leukocytosis type: unspecified Qualified Code(s): D72.829 - Elevated white blood cell count, unspecified Is this a current diagnosis for this admission?: Yes (3) Nausea & vomiting Qualifiers: Vomiting type: unspecified Vomiting Intractability: unspecified Qualified Code(s): R11.2 - Nausea with vomiting, unspecified Is this a current diagnosis for this admission?: Yes (4) Prostate cancer Is this a current diagnosis for this admission?: Yes Plan: At this point there is metastatic disease and the patient is being followed by the oncologist and will probably start hormonal therapy. (5) CKD (chronic kidney disease) stage 3, GFR 30-59 ml/min Is this a current diagnosis for this admission?: Yes Plan: Improved with rehydration (6) Hypertension Qualifiers: Hypertension type: unspecified Qualified Code(s): I10 - Essential (primary ) hypertension Is this a current diagnosis for this admission?: Yes Plan: Continue current medications (7) Physical deconditioning Is this a current diagnosis for this admission?: Yes Plan: We will start with physical therapy. Discussed the short-term rehab
[2018-06-22] MEDS ORDERED: MINERAL OIL ENEMA 133 ML PR ONE (09:00)
[2018-06-22] MEDS: AMLODIPINE BESYLATE 10 MG TABLET PO SCH (09:32)
[2018-06-22] MEDS: SODIUM CHLORIDE 1 GM TABLET PO SCH ×2 (09:32→22:03)
[2018-06-22] MEDS: SERTRALINE HCL 50 MG TABLET PO SCH (09:33)
[2018-06-22] MEDS: ASPIRIN 81 MG TABLET, CHEWABLE PO SCH (09:33)
[2018-06-22] MEDS: GABAPENTIN 300 MG CAPSULE PO SCH ×2 (09:33→17:33)
[2018-06-22] MEDS: NORMAL SALINE 1000 ML 1,000 ML IV PRN (09:34)
--- NOTE | 2018-06-22 15:51 | PDOC CONSULTATION ---
Consultation Consult Date: 06/21/18 Consult reason:: Hyponatremia History of Present Illness Admission Date/PCP: 06/17/18 03:32 SHAWN HERNANDEZ MD History of Present Illness: HARMONY RODRIGUEZ is a 72 year old male with a history of hypertension, diabetes on diet, CKD stage III with a base creatinine 1.5 and recent diagnosis of cancer of the prostate was admitted with history of progressive weakness. He also complains of bilateral peripheral neuropathy of both his extremities which apparently new and this is been giving him problems in walking. No apparent history of foot drop. He was scheduled to start radiation treatment soon and had pellets placed approximately 2 weeks ago. He gives a history of intermittent chills without any fever. No history of any dysuria or hematuria. Patient denies any history of nausea or vomiting or diarrhea prior to admission. Currently he is constipated. He admits to drinking excessive amounts of water though. He is not on any diuretics. Initial evaluations revealed a sodium of 127 and a BUN/creatinine of 30/1.2 respectively.Patient was begun on IV normal saline and his sodium was improved to 129. Patient denies any history of orthostasis. His labs and medications were reviewed. Past Medical History Cardiac Medical History: Reports: Hypertension-primary Denies: Myocardial Infarction Pulmonary Medical History: Denies: Asthma Neurological Medical History: Denies: Seizures Renal/ Medical History: Reports: Chronic Kidney Disease Stage III Malignancy Medical History: Reports: Other - Prostate cancer GI Medical History: Denies: Hepatitis, Hiatal Hernia Musculoskeltal Medical History: Reports: Gout Past Surgical History Past Surgical History: Reports: Orthopedic Surgery - lt knee replacement, Tonsillectomy, Other - Prostate biopsy, fiducial placement Denies: Pacemaker Social History Lives with: Family - 1 Smoking Status: Never Smoker Frequency of Alcohol Use: None Hx Recreational Drug Use: No Drugs: None Hx Prescription Drug Abuse: No - Advance Directive Resuscitation Status: Full Code Family History Parental Family History Reviewed: Yes - Negative for CKD. Children Family History Reviewed: No Sibling(s) Family History Reviewed.: No Medication/Allergy Home Medications: Allopurinol [Zyloprim 300 mg Tablet] 300 mg PO DAILY 06/17/18 Atorvastatin Calcium [Lipitor 10 mg Tablet] 10 mg PO QHS 06/17/18 Cetirizine HCl [Zyrtec 10 mg Tablet] 10 mg PO DAILY 06/17/18 Fluticasone Propionate [Flonase Nasal [place] 50 Mcg/[place] 16 gm] 1 spray NASL BID 06/17/18 Hydralazine HCl [Apresoline 50 mg Tablet] 100 mg PO Q8 06/17/18 Latanoprost/Pf [Latanoprost 0.005% Eye Drop] 1 drop OS QHS 06/17/18 Lisinopril [Prinivil 40 mg Tablet] 40 mg PO DAILY 06/17/18 Tamsulosin HCl [Flomax 0.4 mg Cap.sr] 0.4 mg PO DAILY 06/17/18 Allergies/Adverse Reactions: No Known Allergies Allergy (Verified 05/13/18 03:20) Review of Systems Constitutional: PRESENT: anorexia, chills, fatigue, night sweats, weakness, weight loss. ABSENT: fever(s), headache(s) Nose, Mouth, and Throat: ABSENT: mouth pain, sore throat Cardiovascular: ABSENT: chest pain, dyspnea on exertion, edema, orthropnea, palpitations Gastrointestinal: ABSENT: abdominal pain, coffee ground emesis, diarrhea, dysphagia, heartburn, hematemesis, hematochezia, melena, vomiting Genitourinary: ABSENT: difficulty urinating, dysuria, hematuria Integumentary: ABSENT: erythema, lesions, pruritus, rash Neurological: PRESENT: numbness. ABSENT: abnormal movements, abnormal speech, focal weakness Hematologic/Lymphatic: ABSENT: easy bleeding, easy bruising, lymphadenopathy Physical Exam Vital Signs: Temp Pulse Resp BP Pulse Ox 99.1 F 99 20 147/64 H 97 06/21/18 07:36 06/21/18 07:36 06/21/18 07:36 06/21/18 07:36 06/21/18 08:41 Intake & Output 06/20/18 06/21/18 06/22/18 06:59 06:59 06:59 Intake Total 1584 960 Output Total 1875 775 Balance -291 185 Weight 83.9 kg 82.2 kg General appearance: PRESENT: no acute distress Eye exam: PRESENT: EOMI. ABSENT: nystagmus Ear exam: PRESENT: normal external ear exam Mouth exam: PRESENT: neck supple. ABSENT: moist Neck exam: ABSENT: lymphadenopathy, meningismus, tenderness, thyromegaly, tracheal deviation Respiratory exam: PRESENT: clear to auscultation yuliya. ABSENT: crackles Cardiovascular exam: PRESENT: +S1, +S2, systolic murmur GI/Abdominal exam: PRESENT: normal bowel sounds, soft. ABSENT: organomegaly, tenderness Extremities exam: ABSENT: pedal edema Neurological exam: PRESENT: alert, awake, oriented to person, oriented to place Psychiatric exam: PRESENT: appropriate affect Skin exam: ABSENT: cyanosis, mottled, rash Results Laboratory Results: 06/19/18 11:00 06/20/18 16:50 06/20/18 16:50 Sodium 129.7 L Potassium 4.8 Chloride 95 L Carbon Dioxide 22 Anion Gap 13 BUN 16 Creatinine 1.06 Est GFR ( Amer) > 60 Est GFR (Non-Af Amer) > 60 Glucose 154 H Calcium 7.7 L 06/17/18 06:47 Creatine Kinase 209 H Impressions: Abdomen/Pelvis CT 06/17/18 01:37 IMPRESSION: Pulmonary nodules in the right lung base measuring up to 8 mm, concerning for metastatic disease given the history of prostate cancer. No evidence of bony metastatic disease. Bilateral pleural effusions. Enlarged prostate gland. Bilateral inguinal hernias containing short segments of small bowel with no evidence of an obstruction TECHNICAL DOCUMENTATION: Quality ID # [id number]: Final reports with documentation of one or more dose reduction techniques (e.g., Automated exposure control, adjustment of the mA and/or kV according to patient size, use of iterative reconstruction technique) 2010 [employer]- All Rights Reserved Body Scan Nuclear Medicine 06/18/18 00:00 IMPRESSION: New diffuse bony foci of increased uptake worrisome for metastatic disease. Chest CT 06/18/18 00:00 IMPRESSION: New small bilateral pleural effusions New 6 mm posterior left upper lobe pulmonary nodule, 8 mm nodule periphery right upper lobe New subtle smudgy sclerotic foci are present throughout the ribs and thoracic spine which correlate with new foci of increased uptake on bone scan today, worrisome for bony metastatic involvement Assessment & Plan - Diagnosis (1) Acute hyponatremia Is this a current diagnosis for this admission?: Yes Plan: Patient has asymptomatic euvolemic hyponatremia. This is new for him. Labs do not reveal a clear pattern for SIADH even though his metastatic CA of the prostate to the lungs and bones might make one think about that as a first differential. I believe he has got a mixed pattern. His excessive amount of fluid intake in combination with his metastatic cancer could be a factor. Advised the patient about limiting fluid intake. I am going to start him on gentle hydration and and watch over him and repeat his osmolality and similar labs again in the morning. (2) Leukocytosis Qualifiers: Leukocytosis type: unspecified Qualified Code(s): D72.829 - Elevated white blood cell count, unspecified Is this a current diagnosis for this admission?: Yes Plan: Unknown etiology. However his recent surgical procedure for placement of pellets for his radiation could be a factor. Patient is on antibiotics. Monitor. (3) Prostate cancer Is this a current diagnosis for this admission?: Yes Plan: Now with bone and lung metastasis. As per Dr. Eason. (4) CKD (chronic kidney disease) stage 3, GFR 30-59 ml/min Is this a current diagnosis for this admission?: Yes Plan: Stable with improving renal numbers with good hydration. (5) Peripheral neuropathy Plan: Unexplained. We will get basic diagnostics.
--- NOTE | 2018-06-22 16:52 | PDOC PROGRESS REPORT ---
Subjective Progress Note for:: 06/22/18 Reason For Visit: Patient seen today. He feels progressively getting weaker. He says he is unable to stand up combination of weakness and neuropathy. He denies any such chest pain, shortness of breath, fever or chills. Appetite is getting worse. He is looking rather depressed. Labs and medications were reviewed with the patient. His sodium today is 129. Renal functions are stable. Physical Exam Vital Signs: Temp Pulse Resp BP Pulse Ox 98.1 F 100 16 147/60 H 96 06/22/18 12:37 06/22/18 12:37 06/22/18 12:37 06/22/18 12:37 06/22/18 12:37 Intake & Output 06/21/18 06/22/18 06/23/18 06:59 06:59 06:59 Intake Total 960 820 526 Output Total 775 900 100 Balance 185 -80 426 Weight 82.2 kg 82.2 kg General appearance: PRESENT: no acute distress, disheveled Respiratory exam: PRESENT: clear to auscultation yuliya. ABSENT: crackles Cardiovascular exam: PRESENT: +S1, +S2, systolic murmur GI/Abdominal exam: PRESENT: normal bowel sounds, soft. ABSENT: organomegaly, tenderness Extremities exam: ABSENT: pedal edema Neurological exam: PRESENT: alert, awake, oriented to person, oriented to place Skin exam: ABSENT: erythema, mottled, rash Results Laboratory Results: 06/19/18 11:00 06/22/18 05:20 06/21/18 06/22/18 06/22/18 18:09 05:20 05:20 Retic Count (auto) Absolute Retic Sodium 127.7 L 129.5 L Potassium 4.5 4.5 Chloride 92 L 95 L Carbon Dioxide 23 20 L Anion Gap 13 15 BUN 18 19 Creatinine 1.13 1.14 Est GFR ( Amer) > 60 > 60 Est GFR (Non-Af Amer) > 60 > 60 Glucose 144 H 178 H Serum Osmolality 270 L Calcium 7.7 L 7.6 L Iron 10.5 L TIBC 173 L % Saturation 6 Ferritin > 1000.00 H Vitamin B12 349.0 Folate 5.11 06/22/18 05:20 Retic Count (auto) 1.36 Absolute Retic 0.046 Sodium Potassium Chloride Carbon Dioxide Anion Gap BUN Creatinine Est GFR ( Amer) Est GFR (Non-Af Amer) Glucose Serum Osmolality Calcium Iron TIBC % Saturation Ferritin Vitamin B12 Folate 06/17/18 04:54 Blood Blood Culture - Final NO GROWTH IN 5 DAYS 06/17/18 06:47 Creatine Kinase 209 H Impressions: Abdomen/Pelvis CT 06/17/18 01:37 IMPRESSION: Pulmonary nodules in the right lung base measuring up to 8 mm, concerning for metastatic disease given the history of prostate cancer. No evidence of bony metastatic disease. Bilateral pleural effusions. Enlarged prostate gland. Bilateral inguinal hernias containing short segments of small bowel with no evidence of an obstruction TECHNICAL DOCUMENTATION: Quality ID # [id number]: Final reports with documentation of one or more dose reduction techniques (e.g., Automated exposure control, adjustment of the mA and/or kV according to patient size, use of iterative reconstruction technique) 2010 [employer]- All Rights Reserved Body Scan Nuclear Medicine 06/18/18 00:00 IMPRESSION: New diffuse bony foci of increased uptake worrisome for metastatic disease. Chest CT 06/18/18 00:00 IMPRESSION: New small bilateral pleural effusions New 6 mm posterior left upper lobe pulmonary nodule, 8 mm nodule periphery right upper lobe New subtle smudgy sclerotic foci are present throughout the ribs and thoracic spine which correlate with new foci of increased uptake on bone scan today, worrisome for bony metastatic involvement Assessment & Plan - Diagnosis (1) Acute hyponatremia Is this a current diagnosis for this admission?: Yes Plan: Likely combination of polydipsia with SIADH. Orders for urine studies to be repeated this morning were not done. Further orders have been placed again this morning which on reviewing this evening was not done again. Have called the nurse about it. In the meanwhile continue on gentle hydration. (2) Leukocytosis Qualifiers: Leukocytosis type: unspecified Qualified Code(s): D72.829 - Elevated white blood cell count, unspecified Is this a current diagnosis for this admission?: Yes Plan: As per Les Milian MD. (3) Prostate cancer Is this a current diagnosis for this admission?: Yes Plan: With bony and lung metastasis. Management as per Dr. Eason. (4) CKD (chronic kidney disease) stage 3, GFR 30-59 ml/min Is this a current diagnosis for this admission?: Yes Plan: Stable. Stay on current guidelines. (5) Peripheral neuropathy Plan: Normal B12. Unexplained etiology for his new onset peripheral neuropathy.This might need further looking into by neurology as this might be a cause for his progressive lower extremity weakness which cannot really be explained by some debilitation of just a few days duration.
[2018-06-22] MEDS: ONDANSETRON HCL INJ/PF 4 MG/2 ML SDV IV PRN (17:29)
[2018-06-22] MEDS: HYDROCODONE/ACETAMINOPHEN 5-325 MG TABLET PO PRN (22:11)
[2018-06-23 06:35] LABS: HEMATOCRIT 23.7 % (37.9-51.0); MEAN CORPUSCULAR HEMOGLOBIN 25.1 pg (27.0-33.4); MEAN CORPUSCULAR VOLUME 76 fl (80-97); PLATELET COUNT 297 10^3/uL (150-450); RED BLOOD COUNT 3.12 10^6/uL (4.35-5.55); RED CELL DISTRIBUTION WIDTH 17.1 % (11.5-14.0); WHITE BLOOD COUNT 19.6 10^3/uL (4.0-10.5)
[2018-06-23] MEDS: HEPARIN SOD (PORCINE) 5,000 UNIT/ML 1 ML SYRINGE SUBCUT SCH ×3 (06:49→21:48)
[2018-06-23] MEDS: HYDRALAZINE HCL 50 MG TABLET PO SCH ×3 (06:49→21:44)
[2018-06-23] MEDS: LACTULOSE SYRUP 20 GM/30 ML UDCUP PO SCH ×3 (06:50→21:48)
[2018-06-23 07:10] LABS: HEMOGLOBIN 7.8 g/dL (13.5-17.0)
[2018-06-23 07:14] LABS: ABSOLUTE MONOCYTES # (MANUAL) 1.4 10^3/uL (0.1-1.4); ABSOLUTE NEUTROPHILS# (MANUAL) 17.2 10^3/uL (1.7-8.2); BASOPHILS % (MANUAL) 0 % (0-2); EOSINOPHILS % (MANUAL) 0 % (0-6); LYMPHOCYTES % (MANUAL) 5 % (13-45); MONOCYTES % (MANUAL) 7 % (3-13); SEGMENTED NEUTROPHILS % (MAN) 88 % (42-78); TOTAL CELLS COUNTED 100
[2018-06-23 07:15] LABS: HYPERSEGMENTED NEUTROPHILS PRESENT; HYPOCHROMASIA 1+; OVALOCYTES SLIGHT; POIKILOCYTOSIS SLIGHT
[2018-06-23 07:16] LABS: PLATELET COMMENT ADEQUATE; SCHISTOCYTES SLIGHT
[2018-06-23 08:14] LABS: OSMOLALITY,URINE 388 mOsm/kg (300-900); URINE SODIUM 8 mmol/L (30-90)
--- NOTE | 2018-06-23 08:14 | PDOC PROGRESS REPORT ---
Subjective Progress Note for:: 06/23/18 Subjective:: Had long discussion w/ pt and Dr. Romero, pt feels very weak so yesterday PT /OT eval pt and feel that there has been significant functional decline, suggest rehab placement. Discussed w/ pt that he would need to wait until d/c from rehab to receive active treatment for his prostate ca but we can start casodex orally daily which is inexpensive and can be continued thru rehab. We can continue outpt [facility] once d/c from rehab. Reason For Visit: FEVER OF UNKNOWN ORIGIN METASTIC PROSTATE CANCER Physical Exam Vital Signs: Temp Pulse Resp BP Pulse Ox 98.6 F 91 14 117/54 L 95 06/23/18 03:07 06/23/18 03:07 06/23/18 03:07 06/23/18 03:07 06/23/18 03:07 Intake & Output 06/22/18 06/23/18 06/24/18 06:59 06:59 06:59 Intake Total 820 1092 Output Total 900 850 Balance -80 242 Weight 82.2 kg 83.2 kg General appearance: PRESENT: no acute distress, well-developed, well-nourished Head exam: PRESENT: atraumatic, normocephalic Eye exam: PRESENT: conjunctiva pink, EOMI, PERRLA. ABSENT: scleral icterus Ear exam: PRESENT: normal external ear exam Mouth exam: PRESENT: moist, tongue midline Neck exam: ABSENT: carotid bruit, JVD, lymphadenopathy, thyromegaly Respiratory exam: PRESENT: clear to auscultation yuliya. ABSENT: rales, rhonchi, wheezes Cardiovascular exam: PRESENT: RRR. ABSENT: diastolic murmur, rubs, systolic murmur Pulses: PRESENT: normal dorsalis pedis pul Vascular exam: PRESENT: normal capillary refill GI/Abdominal exam: PRESENT: normal bowel sounds, soft. ABSENT: distended, guarding, mass, organolmegaly, rebound, tenderness Rectal exam: PRESENT: deferred Extremities exam: PRESENT: full ROM. ABSENT: calf tenderness, clubbing, pedal edema Neurological exam: PRESENT: alert, awake, oriented to person, oriented to place , oriented to time, oriented to situation, CN II-XII grossly intact. ABSENT: motor sensory deficit Psychiatric exam: PRESENT: appropriate affect, normal mood. ABSENT: homicidal ideation, suicidal ideation Skin exam: PRESENT: dry, intact, warm. ABSENT: cyanosis, rash Results Laboratory Results: 06/23/18 05:16 06/22/18 06/22/18 06/23/18 05:20 05:20 05:16 WBC 19.6 H RBC 3.12 L Hgb 7.8 L Hct 23.7 L MCV 76 L MCH 25.1 L MCHC 33.0 RDW 17.1 H Plt Count 297 Seg Neutrophils % Not Reportable Lymphocytes % Not Reportable Monocytes % Not Reportable Eosinophils % Not Reportable Basophils % Not Reportable Absolute Neutrophils Not Reportable Absolute Lymphocytes Not Reportable Absolute Monocytes Not Reportable Absolute Eosinophils Not Reportable Absolute Basophils Not Reportable Serum Osmolality 270 L Ferritin > 1000.00 H Vitamin B12 349.0 Folate 5.11 06/17/18 04:54 Blood Blood Culture - Final NO GROWTH IN 5 DAYS 06/17/18 06:47 Creatine Kinase 209 H Impressions: Abdomen/Pelvis CT 06/17/18 01:37 IMPRESSION: Pulmonary nodules in the right lung base measuring up to 8 mm, concerning for metastatic disease given the history of prostate cancer. No evidence of bony metastatic disease. Bilateral pleural effusions. Enlarged prostate gland. Bilateral inguinal hernias containing short segments of small bowel with no evidence of an obstruction TECHNICAL DOCUMENTATION: Quality ID # [id number]: Final reports with documentation of one or more dose reduction techniques (e.g., Automated exposure control, adjustment of the mA and/or kV according to patient size, use of iterative reconstruction technique) 2010 [employer]- All Rights Reserved Body Scan Nuclear Medicine 06/18/18 00:00 IMPRESSION: New diffuse bony foci of increased uptake worrisome for metastatic disease. Chest CT 06/18/18 00:00 IMPRESSION: New small bilateral pleural effusions New 6 mm posterior left upper lobe pulmonary nodule, 8 mm nodule periphery right upper lobe New subtle smudgy sclerotic foci are present throughout the ribs and thoracic spine which correlate with new foci of increased uptake on bone scan today, worrisome for bony metastatic involvement Assessment & Plan - Diagnosis (1) Prostate cancer Is this a current diagnosis for this admission?: Yes Plan: Start casodex today, plan for D/c to rehab and f/u in our office post rehab dc (2) Anemia, chronic disease Is this a current diagnosis for this admission?: Yes Plan: Appears to be ACD, possibly related to prostate ca, hb down to 7.8 will give transfusion w/ 2 units PRBC. - Time Time Spent with patient: 35 or more minutes - Inpatient Certification Based on my medical assessment, after consideration of the patient's comorbidities, presenting symptoms, or acuity I expect that the services needed warrant INPATIENT care.: Yes I certify that my determination is in accordance with my understanding of Medicare's requirements for reasonable and necessary INPATIENT services [42 CFR 412.3e].: Yes
--- NOTE | 2018-06-23 08:19 | PDOC PROGRESS REPORT ---
Subjective Progress Note for:: 06/23/18 Subjective:: The patient appears to be slightly better. He has gotten out of bed yesterday with physical therapy assistance and how walked about 150 feet with a walker. The physical therapy has recommended short-term rehab. The patient appears to be slightly in the better mood. Discussed the need to get a shower and getting a recliner. Discussed about the drop in H&H and the need for transfusion. Reason For Visit: FEVER OF UNKNOWN ORIGIN METASTIC PROSTATE CANCER Physical Exam Vital Signs: Temp Pulse Resp BP Pulse Ox 99.0 F 98 16 131/49 H 93 06/23/18 07:22 06/23/18 07:22 06/23/18 07:22 06/23/18 07:22 06/23/18 07:22 Intake & Output 06/22/18 06/23/18 06/24/18 06:59 06:59 06:59 Intake Total 820 1092 Output Total 900 850 Balance -80 242 Weight 82.2 kg 83.2 kg General appearance: PRESENT: mild distress Head exam: PRESENT: atraumatic Eye exam: PRESENT: conjunctiva pink Neck exam: ABSENT: carotid bruit, JVD Respiratory exam: PRESENT: clear to auscultation yuliya Cardiovascular exam: PRESENT: RRR, +S1, +S2 GI/Abdominal exam: PRESENT: normal bowel sounds, soft Extremities exam: PRESENT: tenderness Musculoskeletal exam: PRESENT: tenderness Neurological exam: PRESENT: alert, awake Results Laboratory Results: 06/23/18 05:16 06/22/18 06/23/18 06/23/18 05:20 03:10 05:16 WBC 19.6 H RBC 3.12 L Hgb 7.8 L Hct 23.7 L MCV 76 L MCH 25.1 L MCHC 33.0 RDW 17.1 H Plt Count 297 Seg Neutrophils % Not Reportable Lymphocytes % Not Reportable Monocytes % Not Reportable Eosinophils % Not Reportable Basophils % Not Reportable Absolute Neutrophils Not Reportable Absolute Lymphocytes Not Reportable Absolute Monocytes Not Reportable Absolute Eosinophils Not Reportable Absolute Basophils Not Reportable Serum Osmolality 270 L Urine Osmolality 388 06/17/18 04:54 Blood Blood Culture - Final NO GROWTH IN 5 DAYS 06/17/18 06:47 Creatine Kinase 209 H Impressions: Abdomen/Pelvis CT 06/17/18 01:37 IMPRESSION: Pulmonary nodules in the right lung base measuring up to 8 mm, concerning for metastatic disease given the history of prostate cancer. No evidence of bony metastatic disease. Bilateral pleural effusions. Enlarged prostate gland. Bilateral inguinal hernias containing short segments of small bowel with no evidence of an obstruction TECHNICAL DOCUMENTATION: Quality ID # 436: Final reports with documentation of one or more dose reduction techniques (e.g., Automated exposure control, adjustment of the mA and/or kV according to patient size, use of iterative reconstruction technique) 2010 [employer],- All Rights Reserved Body Scan Nuclear Medicine 06/18/18 00:00 IMPRESSION: New diffuse bony foci of increased uptake worrisome for metastatic disease. Chest CT 06/18/18 00:00 IMPRESSION: New small bilateral pleural effusions New 6 mm posterior left upper lobe pulmonary nodule, 8 mm nodule periphery right upper lobe New subtle smudgy sclerotic foci are present throughout the ribs and thoracic spine which correlate with new foci of increased uptake on bone scan today, worrisome for bony metastatic involvement Assessment & Plan - Diagnosis (1) Hyponatremia Is this a current diagnosis for this admission?: Yes Plan: Improving continue current treatment (2) Leukocytosis Qualifiers: Leukocytosis type: unspecified Qualified Code(s): D72.829 - Elevated white blood cell count, unspecified Is this a current diagnosis for this admission?: Yes Plan: Source unknown. Will obtain blood cultures urine culture and start antibiotics (3) Nausea & vomiting Qualifiers: Vomiting type: unspecified Vomiting Intractability: unspecified Qualified Code(s): R11.2 - Nausea with vomiting, unspecified Is this a current diagnosis for this admission?: Yes (4) Prostate cancer Is this a current diagnosis for this admission?: Yes Plan: At this point there is metastatic disease and the patient is being followed by the oncologist and will probably start hormonal therapy. (5) CKD (chronic kidney disease) stage 3, GFR 30-59 ml/min Is this a current diagnosis for this admission?: Yes Plan: Improved with rehydration (6) Hypertension Qualifiers: Hypertension type: unspecified Qualified Code(s): I10 - Essential (primary ) hypertension Is this a current diagnosis for this admission?: Yes Plan: Continue current medications (7) Physical deconditioning Is this a current diagnosis for this admission?: Yes Plan: We will start with physical therapy. Discussed the short-term rehab (8) Depression Is this a current diagnosis for this admission?: Yes Plan: We will start antidepressant.
[2018-06-23 08:42] LABS: ALANINE AMINOTRANSFERASE 33 U/L (21-72); ALBUMIN 2.5 g/dL (3.5-5.0); ALKALINE PHOSPHATASE 322 U/L (38-126); ANION GAP 11 (5-19); ASPARTATE AMINO TRANSFERASE 121 U/L (17-59); BILIRUBIN,DIRECT 0.5 mg/dL (0.0-0.4); BILIRUBIN,TOTAL 0.6 mg/dL (0.2-1.3); BLOOD UREA NITROGEN 27 mg/dL (7-20); CALCIUM 7.6 mg/dL (8.4-10.2); CARBON DIOXIDE 23 mmol/L (22-30); CHLORIDE 98 mmol/L (98-107); GLUCOSE 147 mg/dL (75-110); POTASSIUM 4.5 mmol/L (3.6-5.0); SODIUM 132.1 mmol/L (137-145); TOTAL PROTEIN 5.4 g/dL (6.3-8.2)
[2018-06-23] MEDS: ONDANSETRON HCL INJ/PF 4 MG/2 ML SDV IV PRN (08:54)
[2018-06-23] MEDS ORDERED: DIPHENHYDRAMINE HCL 25 MG CAPSULE PO PRN (09:08)
[2018-06-23] MEDS ORDERED: ACETAMINOPHEN 325 MG TABLET PO PRN (09:09)
[2018-06-23] MEDS ORDERED: ONDANSETRON HCL INJ/PF 4 MG/2 ML SDV IV PRN (09:18)
[2018-06-23] MEDS: LEVOFLOXACIN 500 MG TABLET PO SCH (10:44)
[2018-06-23] MEDS: SERTRALINE HCL 50 MG TABLET PO SCH (10:44)
[2018-06-23] MEDS: GABAPENTIN 300 MG CAPSULE PO SCH ×2 (10:44→18:26)
[2018-06-23] MEDS: AMLODIPINE BESYLATE 10 MG TABLET PO SCH (10:44)
[2018-06-23] MEDS: ASPIRIN 81 MG TABLET, CHEWABLE PO SCH (10:45)
[2018-06-23] MEDS: HYDROCODONE/ACETAMINOPHEN 5-325 MG TABLET PO PRN ×2 (10:45→22:22)
[2018-06-23] MEDS: SODIUM CHLORIDE 1 GM TABLET PO SCH ×2 (10:49→21:45)
[2018-06-23] MEDS: BICALUTAMIDE 50 MG TABLET PO SCH (10:50)
[2018-06-23] MEDS ORDERED: FUROSEMIDE 20 MG TABLET PO SCH (11:00)
[2018-06-23] MEDS: ACETAMINOPHEN 325 MG TABLET PO PRN (13:52)
--- NOTE | 2018-06-23 14:40 | PDOC PROGRESS REPORT ---
Subjective Progress Note for:: 06/23/18 Reason For Visit: Patient seen today. He looks and feels somewhat better than yesterday. He is smiling and not acting depressed like he was yesterday. He states his weakness is also some better. He denies any history of chest pain or shortness of breath. No history of any fever or chills. He still has symptoms of peripheral neuropathy affecting his lower extremities. Labs and medications were reviewed with the patient. His sodium is improved today to 132. Physical Exam Vital Signs: Temp Pulse Resp BP Pulse Ox 97.9 F 75 16 116/46 L 100 06/23/18 11:28 06/23/18 11:28 06/23/18 11:28 06/23/18 11:28 06/23/18 11:28 Intake & Output 06/22/18 06/23/18 06/24/18 06:59 06:59 06:59 Intake Total 820 1092 0 Output Total 900 850 Balance -80 242 0 Weight 82.2 kg 83.2 kg General appearance: PRESENT: no acute distress Respiratory exam: PRESENT: clear to auscultation yuliya. ABSENT: crackles Cardiovascular exam: PRESENT: +S1, +S2, systolic murmur GI/Abdominal exam: PRESENT: normal bowel sounds, soft. ABSENT: organomegaly, tenderness Extremities exam: PRESENT: pedal edema Neurological exam: PRESENT: alert, awake, oriented to person, oriented to place Skin exam: ABSENT: cyanosis, erythema, rash Results Laboratory Results: 06/23/18 05:16 06/23/18 05:16 06/22/18 06/23/18 06/23/18 05:20 03:10 05:16 WBC 19.6 H RBC 3.12 L Hgb 7.8 L Hct 23.7 L MCV 76 L MCH 25.1 L MCHC 33.0 RDW 17.1 H Plt Count 297 Seg Neutrophils % Not Reportable Lymphocytes % Not Reportable Monocytes % Not Reportable Eosinophils % Not Reportable Basophils % Not Reportable Absolute Neutrophils Not Reportable Absolute Lymphocytes Not Reportable Absolute Monocytes Not Reportable Absolute Eosinophils Not Reportable Absolute Basophils Not Reportable Sodium Potassium Chloride Carbon Dioxide Anion Gap BUN Creatinine Est GFR ( Amer) Est GFR (Non-Af Amer) Glucose Calcium Magnesium Ferritin 2580.00 H Total Bilirubin AST ALT Alkaline Phosphatase Total Protein Albumin Urine Osmolality 388 Blood Type Antibody Screen 06/23/18 06/23/18 05:16 11:12 WBC RBC Hgb Hct MCV MCH MCHC RDW Plt Count Seg Neutrophils % Lymphocytes % Monocytes % Eosinophils % Basophils % Absolute Neutrophils Absolute Lymphocytes Absolute Monocytes Absolute Eosinophils Absolute Basophils Sodium 132.1 L Potassium 4.5 Chloride 98 Carbon Dioxide 23 Anion Gap 11 BUN 27 H Creatinine 1.36 H Est GFR ( Amer) > 60 Est GFR (Non-Af Amer) 51 L Glucose 147 H Calcium 7.6 L Magnesium 1.9 Ferritin Total Bilirubin 0.6 AST 121 H ALT 33 Alkaline Phosphatase 322 H Total Protein 5.4 L Albumin 2.5 L Urine Osmolality Blood Type O POSITIVE Antibody Screen NEGATIVE 06/17/18 06:47 Creatine Kinase 209 H Impressions: Abdomen/Pelvis CT 06/17/18 01:37 IMPRESSION: Pulmonary nodules in the right lung base measuring up to 8 mm, concerning for metastatic disease given the history of prostate cancer. No evidence of bony metastatic disease. Bilateral pleural effusions. Enlarged prostate gland. Bilateral inguinal hernias containing short segments of small bowel with no evidence of an obstruction TECHNICAL DOCUMENTATION: Quality ID # [id number]: Final reports with documentation of one or more dose reduction techniques (e.g., Automated exposure control, adjustment of the mA and/or kV according to patient size, use of iterative reconstruction technique) 2010 [employer]- All Rights Reserved Body Scan Nuclear Medicine 06/18/18 00:00 IMPRESSION: New diffuse bony foci of increased uptake worrisome for metastatic disease. Chest CT 06/18/18 00:00 IMPRESSION: New small bilateral pleural effusions New 6 mm posterior left upper lobe pulmonary nodule, 8 mm nodule periphery right upper lobe New subtle smudgy sclerotic foci are present throughout the ribs and thoracic spine which correlate with new foci of increased uptake on bone scan today, worrisome for bony metastatic involvement Assessment & Plan - Diagnosis (1) Acute hyponatremia Is this a current diagnosis for this admission?: Yes Plan: He is showing improvement of his sodium. His latest sodium today is 132. He is now showing signs of mild fluid overload. We will therefore discontinue the normal saline and advised him to p.o. hydration appropriately. Continue to monitor. (2) Leukocytosis Qualifiers: Leukocytosis type: unspecified Qualified Code(s): D72.829 - Elevated white blood cell count, unspecified Is this a current diagnosis for this admission?: Yes Plan: As per Les Milian MD. (3) Prostate cancer Is this a current diagnosis for this admission?: Yes Plan: With bony and lung metastasis. Management as per Dr. Eason. (4) CKD (chronic kidney disease) stage 3, GFR 30-59 ml/min Is this a current diagnosis for this admission?: Yes Plan: Stable. Stay on current guidelines. (5) Peripheral neuropathy Plan: Normal B12. Unexplained etiology for his new onset peripheral neuropathy.
[2018-06-24 04:34] LABS: HEMATOCRIT 27.4 % (37.9-51.0); HEMOGLOBIN 9.2 g/dL (13.5-17.0); MEAN CORPUSCULAR HEMOGLOBIN 25.5 pg (27.0-33.4); MEAN CORPUSCULAR HGB CONC 33.4 g/dL (32.0-36.0); MEAN CORPUSCULAR VOLUME 77 fl (80-97); PLATELET COUNT 277 10^3/uL (150-450); RED BLOOD COUNT 3.58 10^6/uL (4.35-5.55); RED CELL DISTRIBUTION WIDTH 17.1 % (11.5-14.0); WHITE BLOOD COUNT 16.9 10^3/uL (4.0-10.5)
[2018-06-24 04:50] LABS: ANION GAP 16 (5-19); BLOOD UREA NITROGEN 39 mg/dL (7-20); CALCIUM 7.5 mg/dL (8.4-10.2); CARBON DIOXIDE 19 mmol/L (22-30); CHLORIDE 97 mmol/L (98-107); GLUCOSE 167 mg/dL (75-110); POTASSIUM 4.8 mmol/L (3.6-5.0); SODIUM 132.3 mmol/L (137-145)
[2018-06-24 05:12] LABS: ABSOLUTE LYMPHOCYTES# (MANUAL) 0.8 10^3/uL (0.5-4.7); BAND NEUTROPHILS % (MANUAL) 1 % (3-5); BASOPHILS % (MANUAL) 0 % (0-2); EOSINOPHILS % (MANUAL) 0 % (0-6); LYMPHOCYTES % (MANUAL) 5 % (13-45); MONOCYTES % (MANUAL) 12 % (3-13); SEGMENTED NEUTROPHILS % (MAN) 82 % (42-78); TOTAL CELLS COUNTED 100
[2018-06-24 05:13] LABS: POLYCHROMASIA SLIGHT; SMUDGE CELLS PRESENT; TOXIC GRANULATION 1+; TOXIC VACUOLATION PRESENT
[2018-06-24 05:14] LABS: ANISOCYTOSIS 1+; PLATELET COMMENT ADEQUATE; PLATELET LARGE PRESENT; POIKILOCYTOSIS SLIGHT; SCHISTOCYTES SLIGHT
[2018-06-24] MEDS: LACTULOSE SYRUP 20 GM/30 ML UDCUP PO SCH ×2 (06:31→13:55)
[2018-06-24] MEDS: HYDRALAZINE HCL 50 MG TABLET PO SCH ×2 (06:35→14:12)
[2018-06-24] MEDS: HYDROCODONE/ACETAMINOPHEN 5-325 MG TABLET PO PRN (06:35)
[2018-06-24] MEDS: HEPARIN SOD (PORCINE) 5,000 UNIT/ML 1 ML SYRINGE SUBCUT SCH ×2 (06:36→13:55)
--- NOTE | 2018-06-24 07:42 | PDOC PROGRESS REPORT ---
Subjective Progress Note for:: 06/24/18 Subjective:: Pt feeling better this am, D/C planning notes there is bed offer from [facility]. We will give pt and daughter f/u appt date with our office. Con't casodex. Reason For Visit: FEVER OF UNKNOWN ORIGIN METASTIC PROSTATE CANCER Physical Exam Vital Signs: Temp Pulse Resp BP Pulse Ox 98.5 F 82 18 129/58 H 93 06/24/18 01:33 06/24/18 02:00 06/24/18 01:33 06/24/18 01:33 06/24/18 01:33 Intake & Output 06/23/18 06/24/18 06/25/18 06:59 06:59 06:59 Intake Total 1092 2009 Output Total 850 500 Balance 242 1510 Weight 83.2 kg 81.4 kg General appearance: PRESENT: no acute distress, well-developed, well-nourished Head exam: PRESENT: atraumatic, normocephalic Eye exam: PRESENT: conjunctiva pink, EOMI, PERRLA. ABSENT: scleral icterus Ear exam: PRESENT: normal external ear exam Mouth exam: PRESENT: moist, tongue midline Neck exam: ABSENT: carotid bruit, JVD, lymphadenopathy, thyromegaly Respiratory exam: PRESENT: clear to auscultation yuliya. ABSENT: rales, rhonchi, wheezes Cardiovascular exam: PRESENT: RRR. ABSENT: diastolic murmur, rubs, systolic murmur Pulses: PRESENT: normal dorsalis pedis pul Vascular exam: PRESENT: normal capillary refill GI/Abdominal exam: PRESENT: normal bowel sounds, soft. ABSENT: distended, guarding, mass, organolmegaly, rebound, tenderness Rectal exam: PRESENT: deferred Extremities exam: PRESENT: full ROM. ABSENT: calf tenderness, clubbing, pedal edema Neurological exam: PRESENT: alert, awake, oriented to person, oriented to place , oriented to time, oriented to situation, CN II-XII grossly intact. ABSENT: motor sensory deficit Psychiatric exam: PRESENT: appropriate affect, normal mood. ABSENT: homicidal ideation, suicidal ideation Skin exam: PRESENT: dry, intact, warm. ABSENT: cyanosis, rash Results Laboratory Results: 06/24/18 03:52 06/24/18 03:52 11/13/18 11/14/18 11/14/18 05:20 03:10 05:16 WBC RBC Hgb Hct MCV MCH MCHC RDW Plt Count Seg Neutrophils % Lymphocytes % Monocytes % Eosinophils % Basophils % Absolute Neutrophils Absolute Lymphocytes Absolute Monocytes Absolute Eosinophils Absolute Basophils Sodium 132.1 L Potassium 4.5 Chloride 98 Carbon Dioxide 23 Anion Gap 11 BUN 27 H Creatinine 1.36 H Est GFR ( Amer) > 60 Est GFR (Non-Af Amer) 51 L Glucose 147 H Calcium 7.6 L Magnesium 1.9 Ferritin 2580.00 H Total Bilirubin 0.6 AST 121 H ALT 33 Alkaline Phosphatase 322 H Total Protein 5.4 L Albumin 2.5 L Urine Osmolality 388 Blood Type Antibody Screen 06/23/18 06/24/18 06/24/18 11:12 03:52 03:52 WBC 16.9 H RBC 3.58 L Hgb 9.2 L Hct 27.4 L MCV 77 L MCH 25.5 L MCHC 33.4 RDW 17.1 H Plt Count 277 Seg Neutrophils % Not Reportable Lymphocytes % Not Reportable Monocytes % Not Reportable Eosinophils % Not Reportable Basophils % Not Reportable Absolute Neutrophils Not Reportable Absolute Lymphocytes Not Reportable Absolute Monocytes Not Reportable Absolute Eosinophils Not Reportable Absolute Basophils Not Reportable Sodium 132.3 L Potassium 4.8 Chloride 97 L Carbon Dioxide 19 L Anion Gap 16 BUN 39 H Creatinine 1.61 H Est GFR ( Amer) 51 L Est GFR (Non-Af Amer) 42 L Glucose 167 H Calcium 7.5 L Magnesium 1.9 Ferritin Total Bilirubin AST ALT Alkaline Phosphatase Total Protein Albumin Urine Osmolality Blood Type O POSITIVE Antibody Screen NEGATIVE 06/17/18 06:47 Creatine Kinase 209 H Impressions: Abdomen/Pelvis CT 06/17/18 01:37 IMPRESSION: Pulmonary nodules in the right lung base measuring up to 8 mm, concerning for metastatic disease given the history of prostate cancer. No evidence of bony metastatic disease. Bilateral pleural effusions. Enlarged prostate gland. Bilateral inguinal hernias containing short segments of small bowel with no evidence of an obstruction TECHNICAL DOCUMENTATION: Quality ID # [id number]: Final reports with documentation of one or more dose reduction techniques (e.g., Automated exposure control, adjustment of the mA and/or kV according to patient size, use of iterative reconstruction technique) 2010 [employer]- All Rights Reserved Body Scan Nuclear Medicine 06/18/18 00:00 IMPRESSION: New diffuse bony foci of increased uptake worrisome for metastatic disease. Chest CT 06/18/18 00:00 IMPRESSION: New small bilateral pleural effusions New 6 mm posterior left upper lobe pulmonary nodule, 8 mm nodule periphery right upper lobe New subtle smudgy sclerotic foci are present throughout the ribs and thoracic spine which correlate with new foci of increased uptake on bone scan today, worrisome for bony metastatic involvement Assessment & Plan - Diagnosis (1) Prostate cancer Is this a current diagnosis for this admission?: Yes Plan: Stage IV prostate ca, con't casodex alone until d/c from rehab, we would then con't androgen deprivation therapy with Lupron after d/c from rehab. (2) Anemia, chronic disease Is this a current diagnosis for this admission?: Yes Plan: Hb improved post transfusion, should stabilize hereafter. - Time Time Spent with patient: 35 or more minutes Anticipated discharge: Acute Rehab Within: within 24 hours
--- NOTE | 2018-06-24 08:36 | PDOC TRANSFER SUMMARY ---
General - Admit/Disc Date/PCP Admission Date/Primary Care Provider: 06/17/18 03:32 SHAWN HERNANDEZ MD Discharge Date: 06/24/18 - Discharge Diagnosis (1) Hyponatremia Is this a current diagnosis for this admission?: Yes Summary: Resolved. Will continue current treatment. The nephrology has instructed patient about the amount of fluid and salt intake (2) Leukocytosis Is this a current diagnosis for this admission?: Yes Summary: Improved blood cultures and urine cultures are negative. We will continue the Levaquin for 5 more days (3) Nausea & vomiting Is this a current diagnosis for this admission?: Yes (4) Prostate cancer Is this a current diagnosis for this admission?: Yes Summary: Follow-up with Dr. Eason after the discharge from the rehab for restarting his treatment (5) CKD (chronic kidney disease) stage 3, GFR 30-59 ml/min Is this a current diagnosis for this admission?: Yes Summary: Stable continue current treatment (6) Hypertension Is this a current diagnosis for this admission?: Yes Summary: Stable continue current treatment (7) Physical deconditioning Is this a current diagnosis for this admission?: Yes Summary: We will do physical therapy twice a day (8) Depression Is this a current diagnosis for this admission?: Yes Summary: Stable continue current treatment - Additional Information Resuscitation Status: Full Code Discharge Diet: Regular Discharge Activity: Activity As Tolerated Prescriptions: Hydrocodone/Acetaminophen [Tabor 5-325 mg Tablet] 1 tab PO Q6HP PRN #60 tablet PRN Reason: Home Medications: Allopurinol [Zyloprim 300 mg Tablet] 300 mg PO DAILY 06/17/18 Atorvastatin Calcium [Lipitor 10 mg Tablet] 10 mg PO QHS 06/17/18 Cetirizine HCl [Zyrtec 10 mg Tablet] 10 mg PO DAILY 06/17/18 Fluticasone Propionate [Flonase Nasal Rochelle 50 Mcg/Rochelle 16 gm] 1 spray NASL BID 06/17/18 Hydralazine HCl [Apresoline 50 mg Tablet] 100 mg PO Q8 06/17/18 Latanoprost/Pf [Latanoprost 0.005% Eye Drop] 1 drop OS QHS 06/17/18 Lisinopril [Prinivil 40 mg Tablet] 40 mg PO DAILY 06/17/18 Tamsulosin HCl [Flomax 0.4 mg Cap.sr] 0.4 mg PO DAILY 06/17/18 Acetaminophen [Tylenol 325 mg Tablet] 650 mg PO Q4HP PRN tablet 06/24/18 Amlodipine Besylate [Norvasc 10 mg Tablet] 10 mg PO DAILY tablet 06/24/18 Bicalutamide [Casodex 50 mg Tablet] 50 mg PO DAILY tablet 06/24/18 Gabapentin [Neurontin 300 mg Capsule] 300 mg PO BID capsule 06/24/18 Guaifenesin [Robitussin Syrup 200 mg/10 ml Ud Cup] 200 mg PO QIDP PRN udc 06/24 Hydrocodone/Acetaminophen [Tabor 5-325 mg Tablet] 1 tab PO Q6HP PRN #60 tablet 06/24/18 Lactulose [Cephulac Syrup 20 gm/30 ml Udcup] 6.67 gm PO Q8 udc 06/24/18 Levofloxacin [Levaquin 500 mg Tablet] 500 mg PO DAILY #5 tablet 06/24/18 Sertraline HCl [Zoloft 50 mg Tablet] 50 mg PO DAILY tablet 06/24/18 Sodium Chloride [Sodium Chloride 1 gm Tablet] 1 gm PO Q12 tablet 06/24/18 History of Present Illness Admission Date/PCP: 06/17/18 03:32 SHAWN HERNANDEZ MD History of Present Illness: HARMONY RODRIGUEZ is a 72 year old male Hospital Course Hospital Course: The patient was admitted because of hyponatremia dehydration and deconditioning. He has been hydrated. He is CT showed metastasis to the lung. He was seen by the oncology nephrology. His sodium has improved with rehydration and fluid restriction. The patient appeared to be very depressed. He was started on Zoloft which has improved his symptoms. Long discussion with the patient and the family about the need to rehab so he can restart his treatments after the rehab. Physical Exam Vital Signs: Temp Pulse Resp BP Pulse Ox 98.5 F 91 18 129/58 H 93 06/24/18 01:33 06/24/18 07:00 06/24/18 01:33 06/24/18 01:33 06/24/18 01:33 Intake & Output 06/23/18 06/24/18 06/25/18 06:59 06:59 06:59 Intake Total 1092 2009 Output Total 850 500 Balance 242 1510 Weight 83.2 kg 81.4 kg General appearance: PRESENT: no acute distress Head exam: PRESENT: atraumatic Eye exam: PRESENT: conjunctiva pink Neck exam: ABSENT: carotid bruit, JVD Respiratory exam: PRESENT: clear to auscultation yuliya Cardiovascular exam: PRESENT: RRR, +S1, +S2 GI/Abdominal exam: PRESENT: normal bowel sounds, soft Extremities exam: PRESENT: tenderness Musculoskeletal exam: PRESENT: tenderness Neurological exam: PRESENT: alert, awake Results Laboratory Results: 06/24/18 03:52 06/24/18 03:52 06/22/18 06/23/18 06/23/18 05:20 05:16 11:12 WBC RBC Hgb Hct MCV MCH MCHC RDW Plt Count Seg Neutrophils % Lymphocytes % Monocytes % Eosinophils % Basophils % Absolute Neutrophils Absolute Lymphocytes Absolute Monocytes Absolute Eosinophils Absolute Basophils Sodium 132.1 L Potassium 4.5 Chloride 98 Carbon Dioxide 23 Anion Gap 11 BUN 27 H Creatinine 1.36 H Est GFR ( Amer) > 60 Est GFR (Non-Af Amer) 51 L Glucose 147 H Calcium 7.6 L Magnesium 1.9 Ferritin 2580.00 H Total Bilirubin 0.6 AST 121 H ALT 33 Alkaline Phosphatase 322 H Total Protein 5.4 L Albumin 2.5 L Blood Type O POSITIVE Antibody Screen NEGATIVE 06/24/18 06/24/18 03:52 03:52 WBC 16.9 H RBC 3.58 L Hgb 9.2 L Hct 27.4 L MCV 77 L MCH 25.5 L MCHC 33.4 RDW 17.1 H Plt Count 277 Seg Neutrophils % Not Reportable Lymphocytes % Not Reportable Monocytes % Not Reportable Eosinophils % Not Reportable Basophils % Not Reportable Absolute Neutrophils Not Reportable Absolute Lymphocytes Not Reportable Absolute Monocytes Not Reportable Absolute Eosinophils Not Reportable Absolute Basophils Not Reportable Sodium 132.3 L Potassium 4.8 Chloride 97 L Carbon Dioxide 19 L Anion Gap 16 BUN 39 H Creatinine 1.61 H Est GFR ( Amer) 51 L Est GFR (Non-Af Amer) 42 L Glucose 167 H Calcium 7.5 L Magnesium 1.9 Ferritin Total Bilirubin AST ALT Alkaline Phosphatase Total Protein Albumin Blood Type Antibody Screen 06/17/18 06:47 Creatine Kinase 209 H Impressions: Abdomen/Pelvis CT 06/17/18 01:37 IMPRESSION: Pulmonary nodules in the right lung base measuring up to 8 mm, concerning for metastatic disease given the history of prostate cancer. No evidence of bony metastatic disease. Bilateral pleural effusions. Enlarged prostate gland. Bilateral inguinal hernias containing short segments of small bowel with no evidence of an obstruction TECHNICAL DOCUMENTATION: Quality ID # 436: Final reports with documentation of one or more dose reduction techniques (e.g., Automated exposure control, adjustment of the mA and/or kV according to patient size, use of iterative reconstruction technique) 2010 [employer]- All Rights Reserved Body Scan Nuclear Medicine 06/18/18 00:00 IMPRESSION: New diffuse bony foci of increased uptake worrisome for metastatic disease. Chest CT 06/18/18 00:00 IMPRESSION: New small bilateral pleural effusions New 6 mm posterior left upper lobe pulmonary nodule, 8 mm nodule periphery right upper lobe New subtle smudgy sclerotic foci are present throughout the ribs and thoracic spine which correlate with new foci of increased uptake on bone scan today, worrisome for bony metastatic involvement Qualifiers - * PATIENT BEING DISCHARGED WITH ANY OF THE FOLLOWING DIAGNOSIS: No
--- NOTE | 2018-06-24 10:14 | PDOC PROGRESS REPORT ---
Subjective Progress Note for:: 06/24/18 Reason For Visit: Patient was seen today. He generally feels better.He has a good appetite now. He had a good bowel movement today. He denies any history of chest pain or shortness of breath. Labs and medications were reviewed with the patient that shows stable sodium of 132. However creatinine has gone up to 1.6 which according to my outpatient records is his baseline.He says he will be discharged to rehab soon. Physical Exam Vital Signs: Temp Pulse Resp BP Pulse Ox 98.8 F 91 14 145/50 H 92 06/24/18 03:28 06/24/18 07:00 06/24/18 03:28 06/24/18 03:28 06/24/18 03:28 Intake & Output 06/23/18 06/24/18 06/25/18 06:59 06:59 06:59 Intake Total 1092 2010 Output Total 850 500 Balance 242 1510 Weight 83.2 kg 81.4 kg General appearance: PRESENT: no acute distress Respiratory exam: PRESENT: clear to auscultation yuliya. ABSENT: crackles Cardiovascular exam: PRESENT: +S1, +S2, systolic murmur GI/Abdominal exam: PRESENT: normal bowel sounds, soft. ABSENT: organomegaly, tenderness Extremities exam: PRESENT: pedal edema Neurological exam: PRESENT: alert, awake, oriented to person, oriented to place Results Laboratory Results: 06/24/18 03:52 06/24/18 03:52 06/23/18 06/24/18 06/24/18 11:12 03:52 03:52 WBC 16.9 H RBC 3.58 L Hgb 9.2 L Hct 27.4 L MCV 77 L MCH 25.5 L MCHC 33.4 RDW 17.1 H Plt Count 277 Seg Neutrophils % Not Reportable Lymphocytes % Not Reportable Monocytes % Not Reportable Eosinophils % Not Reportable Basophils % Not Reportable Absolute Neutrophils Not Reportable Absolute Lymphocytes Not Reportable Absolute Monocytes Not Reportable Absolute Eosinophils Not Reportable Absolute Basophils Not Reportable Sodium 132.3 L Potassium 4.8 Chloride 97 L Carbon Dioxide 19 L Anion Gap 16 BUN 39 H Creatinine 1.61 H Est GFR ( Amer) 51 L Est GFR (Non-Af Amer) 42 L Glucose 167 H Calcium 7.5 L Magnesium 1.9 Blood Type O POSITIVE Antibody Screen NEGATIVE 06/17/18 06:47 Creatine Kinase 209 H Impressions: Abdomen/Pelvis CT 06/17/18 01:37 IMPRESSION: Pulmonary nodules in the right lung base measuring up to 8 mm, concerning for metastatic disease given the history of prostate cancer. No evidence of bony metastatic disease. Bilateral pleural effusions. Enlarged prostate gland. Bilateral inguinal hernias containing short segments of small bowel with no evidence of an obstruction TECHNICAL DOCUMENTATION: Quality ID # 436: Final reports with documentation of one or more dose reduction techniques (e.g., Automated exposure control, adjustment of the mA and/or kV according to patient size, use of iterative reconstruction technique) 2010 [employer]- All Rights Reserved Body Scan Nuclear Medicine 06/18/18 00:00 IMPRESSION: New diffuse bony foci of increased uptake worrisome for metastatic disease. Chest CT 06/18/18 00:00 IMPRESSION: New small bilateral pleural effusions New 6 mm posterior left upper lobe pulmonary nodule, 8 mm nodule periphery right upper lobe New subtle smudgy sclerotic foci are present throughout the ribs and thoracic spine which correlate with new foci of increased uptake on bone scan today, worrisome for bony metastatic involvement Assessment & Plan - Diagnosis (1) Acute hyponatremia Is this a current diagnosis for this admission?: Yes Plan: His latest sodium today is 132. He is now showing signs of mild fluid overload. Continue on Lasix low-dose as an outpatient as well.Advised to follow -up with me in about 2 weeks post discharge.Advised on fluid restriction. (2) Leukocytosis Qualifiers: Leukocytosis type: unspecified Qualified Code(s): D72.829 - Elevated white blood cell count, unspecified Is this a current diagnosis for this admission?: Yes (3) Prostate cancer Is this a current diagnosis for this admission?: Yes Plan: With bony and lung metastasis. Management as per Dr. Eason. (4) CKD (chronic kidney disease) stage 3, GFR 30-59 ml/min Is this a current diagnosis for this admission?: Yes Plan: Latest creatinine is 1.6 which is his baseline. Earlier numbers were most likely from over hydration. We will follow-up as an outpatient. Continue on present medications.
[2018-06-24] MEDS ORDERED: FUROSEMIDE 20 MG TABLET PO SCH (10:15)
[2018-06-24] MEDS: AMLODIPINE BESYLATE 10 MG TABLET PO SCH (10:39)
[2018-06-24] MEDS: LEVOFLOXACIN 500 MG TABLET PO SCH (10:39)
[2018-06-24] MEDS: SERTRALINE HCL 50 MG TABLET PO SCH (10:39)
[2018-06-24] MEDS: SODIUM CHLORIDE 1 GM TABLET PO SCH (10:39)
[2018-06-24] MEDS: GABAPENTIN 300 MG CAPSULE PO SCH (10:39)
[2018-06-24] MEDS: BICALUTAMIDE 50 MG TABLET PO SCH (10:39)
[2018-06-24] MEDS: ASPIRIN 81 MG TABLET, CHEWABLE PO SCH (10:39)
[2018-06-24 12:54] VITALS: BP 134/52
[2018-06-24] MEDS ORDERED: ONDANSETRON HCL INJ/PF 4 MG/2 ML SDV IV PRN (13:00)
== END 2018-06-24 17:13 | DRG 641 ==
LOC: ER 23:10 → EH 06-17 03:32 → OBSVTOIN 06-17 03:32 → 4N 06-17 04:50
PROVIDERS: ADMIT Internal Medicine; ATTEND Internal Medicine
PROC: 30233N1 Transfusion of Nonautologous Red Blood Cells into Peripheral Vein, Percutaneous Approach (ICD-10-PCS; principal; 2018-06-23)
DX: E87.1 Hypo-osmolality and hyponatremia (principal); C78.02 Secondary malignant neoplasm of left lung; C78.01 Secondary malignant neoplasm of right lung; E86.0 Dehydration; C61 Malignant neoplasm of prostate; I12.9 Hypertensive chronic kidney disease with stage 1 through stage 4 chronic kidney disease, or unspecified chronic kidney disease; N18.3 Chronic kidney disease, stage 3 (moderate); D63.8 Anemia in other chronic diseases classified elsewhere; R11.2 Nausea with vomiting, unspecified; M10.9 Gout, unspecified; F32.9 Major depressive disorder, single episode, unspecified; Z79.899 Other long term (current) drug therapy; Z96.652 Presence of left artificial knee joint
CPT/HCPCS: 36415; 36430; 71260; 74176; 78306; 80048; 80053; 81001; 82550; 82607; 82728; 82746; 83540; 83550; 83735; 83930; 83935; 84153; 84300; 84443; 85025; 85045; 86850; 86900; 86901; 86920; 87040; 87086; 94799; 96365; 96367; 96375; 99285; A9561; G8978-GP; G8979-GP; G8987-GO; G8988-GO; J0360; J1644; J1940; J1956; J2405; J2543; J3370; J3490; J7030; P9016; Q9969

== ENCOUNTER 2018-06-30 08:53 | Inpatient (IN) | payer MEDICARE ==
--- NOTE | 2018-06-30 09:09 | ER Document Report ---
ED General - General Mode of Arrival: Medic Information source: Emergency Med Personnel, Outside Facility Records TRAVEL OUTSIDE OF THE [place] IN LAST 30 DAYS: No <CLAY RUIZ - Last Filed: 06/30/18 09:59> <ANKITA BARON - Last Filed: 06/30/18 12:08> - General Stated Complaint: ALTERED MENTAL STATUS Time Seen by Provider: 06/30/18 08:58 Notes: 72-year-old male brought in by EMS today for complaints of "not acting like himself". EMS states that upon arrival to the patient's nursing facility, the report that was given was very vague and not helpful. Documents from the facility states the patient was on 2 L of oxygen saturating 91% however EMS got a saturation of 95% without oxygen. Patient was discharged from this facility on the for hyponatremia, nausea, vomiting, along with his known stage IV prostate cancer with metastasis to the lung. History is limited. According to family who has just arrived, the patient had slurred speech on thursday, and yesterday they were unable to understand him at all. (CLAY RUIZ) - Related Data Allergies/Adverse Reactions: No Known Allergies Allergy (Verified 05/13/18 03:20) Past Medical History - General Information source: Emergency Med Personnel, Outside Facility Records - Social History Smoking Status: Unknown if Ever Smoked Family History: Reviewed & Not Pertinent - Past Medical History Cardiac Medical History: Reports: Hx Hypertension Malignancy Medical History: Reports Hx Prostate Cancer - stage IV with mets to lung Musculoskeletal Medical History: Reports Hx Gout Past Surgical History: Reports: Hx Orthopedic Surgery - lt knee replacement, Hx Tonsillectomy, Other - Prostate biopsy, fiducial placement - Immunizations Hx Diphtheria, Pertussis, Tetanus Vaccination: Yes Hx Pneumococcal Vaccination: 08/10/17 <CLAY RUIZ - Last Filed: 06/30/18 09:59> Review of Systems - Review of Systems -: Yes ROS unobtainable due to patient's medical condition <CLAY RUIZ - Last Filed: 06/30/18 09:59> Physical Exam <CLAY RUIZ - Last Filed: 06/30/18 09:59> <ANKITA BARON - Last Filed: 06/30/18 12:08> - Vital signs Vitals: Resp Pulse Ox 27 H 95 06/30/18 08:59 06/30/18 08:59 - Notes Notes: Physical Exam: General: Alert, appears somewhat lethargic. HEENT: Normocephalic. Atraumatic. PERRL. Extraocular movements intact. Oropharynx clear. Dry mucous membranes. Neck: Supple. Non-tender. Respiratory: No respiratory distress. Clear and equal breath sounds bilaterally. Cardiovascular: Irregularly irregular, normal rate. Abdominal: Normal Inspection. Non-tender. No distension. Normal Bowel Sounds. Back: Non-tender. No deformity or step off. Extremities: Moves all four extremities. Upper extremities: Normal ROM. Lower extremities: No edema. Normal ROM. Neurological: Normal cognition. AAOx4. Normal speech. Appears to have slight right sided facial weakness Psychological: Normal affect. Normal Mood. Skin: Dry skin, normal color. (CLAY RUIZ) Course - Laboratory Result Diagrams: 06/30/18 09:03 06/30/18 09:03 <CLAY RUIZ - Last Filed: 06/30/18 09:59> - Laboratory Result Diagrams: 06/30/18 09:03 06/30/18 09:03 - Diagnostic Test Radiology reviewed: Image reviewed - Chest x-ray suggests a right lower lobe infiltrate - EKG Interpretation by Mt EKG shows normal: Ten Sleep, Intervals, QRS Complexes. abnormal: ST-T Waves - Nonspecific inferior T abnormalities Rate: Normal - 57 Rhythm: A.Fib Ten Sleep/QRS: Left axis deviation When compared to previous EKG there are: Changes noted - Inferior T abnormalities are a new finding, and the atrial fibrillation is a new finding. - Consults Joann See NP Time consulted: 12:00 Consulted provider: will come to ER <ANKITA BARON - Last Filed: 06/30/18 12:08> - Re-evaluation Re-evalutation: 06/30/18 10:12 The patient was admitted on 06/16/2018 through 06/24/2018. He was diagnosed with dehydration and hyponatremia, and treated with hydration and fluid restriction according to the discharge summary. He did come in with a creatinine about 1.1, was discharged with a creatinine of 1.61 and a BUN of 39. He had outpatient lab work done yesterday showed a BUN of 65 and a creatinine 2.19 with a sodium of 145. Today his sodium is 147.7 with a BUN of 73 and a creatinine 2.35 He was given some water to drink as he did complain of being thirsty, but he spit it back up because of the pain and trying to swallow according to the patient. He does seem to have a droop to the right corner of his mouth which his family member states is new. He does not have any motor deficits in the extremities and his speech seems rather clear to me at this time. There is no tongue deviation. His laboratory workup also shows a leukocytosis that persisted throughout his hospital stay and his CBC today is unchanged from his discharge CBC on 2017. His total CK is 817 today suggesting that he is developing rhabdomyolysis due to his dehydration and bedridden status. (ANKITA BARON) - Vital Signs Vital signs: Temp Pulse Resp BP Pulse Ox 97.7 F 24 H 138/58 H 94 06/30/18 09:28 06/30/18 11:01 06/30/18 11:01 06/30/18 11:01 - Laboratory Laboratory results interpreted by me: 06/30/18 06/30/18 06/30/18 09:03 09:03 09:03 WBC 16.7 H RBC 3.54 L Hgb 9.0 L Hct 27.5 L MCV 78 L MCH 25.5 L RDW 17.9 H Seg Neuts % (Manual) 85 H Lymphocytes % (Manual) 5 L Metamyelocytes % 1 H Abs Neuts (Manual) 14.4 H Abs Monocytes (Manual) 1.5 H PT 19.1 H VBG pCO2 Sodium 147.7 H Chloride 111 H Carbon Dioxide 20 L BUN 73 H Creatinine 2.35 H Est GFR ( Amer) 33 L Est GFR (Non-Af Amer) 27 L Glucose 321 H Lactic Acid Calcium 8.1 L Direct Bilirubin 0.6 H AST 184 H Alkaline Phosphatase 425 H Creatine Kinase 817 H Albumin 3.0 L Urine Protein 06/30/18 06/30/18 06/30/18 09:03 09:03 09:40 WBC RBC Hgb Hct MCV MCH RDW Seg Neuts % (Manual) Lymphocytes % (Manual) Metamyelocytes % Abs Neuts (Manual) Abs Monocytes (Manual) PT VBG pCO2 32.6 L Sodium Chloride Carbon Dioxide BUN Creatinine Est GFR ( Amer) Est GFR (Non-Af Amer) Glucose Lactic Acid 2.2 H Calcium Direct Bilirubin AST Alkaline Phosphatase Creatine Kinase Albumin Urine Protein 100 H Critical Care Note - Critical Care Note Total time excluding time spent on procedures (mins): 35 <ANKITA BARON - Last Filed: 06/30/18 12:08> Discharge <CLAY RUIZ - Last Filed: 06/30/18 09:59> - Discharge Admitting Provider: Hospitalist Unit Admitted: Telemetry <ANKITA BARON - Last Filed: 06/30/18 12:08> - Discharge Clinical Impression: Dehydration, Acute kidney injury, New onset atrial fibrillation, Sore throat, Difficulty swallowing liquids, Right lower lobe pulmonary infiltrate Altered mental status Qualifiers: Altered mental status type: unspecified Qualified Code(s): R41.82 - Altered mental status, unspecified Rhabdomyolysis Qualifiers: Rhabdomyolysis type: non-traumatic Qualified Code(s): M62.82 - Rhabdomyolysis Condition: Stable Disposition: ADMITTED INPATIENT Referrals: RANGEL EUCEDA, [NO LOCAL MD] - Follow up as needed Scribe Attestation: 06/30/18 10:17 I personally performed the services described in the documentation, reviewed and edited the documentation which was dictated to the scribe in my presence, and it accurately records my words and actions. (ANKITA BARON) Scribe Documentation - Scribe Written by Juan Miguel:: Juan Miguel Black, 06/30/2018 0921 acting as scribe for :: Jacob <CLAY RUIZ - Last Filed: 06/30/18 09:59>
[2018-06-30] MEDS ORDERED: NORMAL SALINE 1000 ML 1,000 ML IV ONE ×2 (09:11→11:05)
[2018-06-30 09:24] LABS: HEMATOCRIT 27.5 % (37.9-51.0); MEAN CORPUSCULAR HEMOGLOBIN 25.5 pg (27.0-33.4); MEAN CORPUSCULAR HGB CONC 32.8 g/dL (32.0-36.0); MEAN CORPUSCULAR VOLUME 78 fl (80-97); PLATELET COUNT 251 10^3/uL (150-450); RED BLOOD COUNT 3.54 10^6/uL (4.35-5.55); RED CELL DISTRIBUTION WIDTH 17.9 % (11.5-14.0); WHITE BLOOD COUNT 16.7 10^3/uL (4.0-10.5)
[2018-06-30 09:34] LABS: INTERNATIONAL RATION (INR) 1.52; PROTHROMBIN TIME 19.1 SEC (11.4-15.4)
[2018-06-30 09:41] LABS: ALANINE AMINOTRANSFERASE 34 U/L (21-72); ALKALINE PHOSPHATASE 425 U/L (38-126); ANION GAP 17 (5-19); ASPARTATE AMINO TRANSFERASE 184 U/L (17-59); BILIRUBIN,DIRECT 0.6 mg/dL (0.0-0.4); BILIRUBIN,TOTAL 0.7 mg/dL (0.2-1.3); BLOOD UREA NITROGEN 73 mg/dL (7-20); CALCIUM 8.1 mg/dL (8.4-10.2); CARBON DIOXIDE 20 mmol/L (22-30); CHLORIDE 111 mmol/L (98-107); CREATINE KINASE 817 U/L (55-170); GLUCOSE 321 mg/dL (75-110); POTASSIUM 3.9 mmol/L (3.6-5.0); SODIUM 147.7 mmol/L (137-145); TOTAL PROTEIN 6.3 g/dL (6.3-8.2)
[2018-06-30 09:43] LABS: VENOUS BLOOD BASE EXCESS -3.8 mmol/L; VENOUS BLOOD PCO2 32.6 mmHg (35-63); VENOUS BLOOD PH 7.41 (7.30-7.42)
[2018-06-30 09:50] LABS: ABSOLUTE LYMPHOCYTES# (MANUAL) 0.8 10^3/uL (0.5-4.7); ABSOLUTE MONOCYTES # (MANUAL) 1.5 10^3/uL (0.1-1.4); ABSOLUTE NEUTROPHILS# (MANUAL) 14.4 10^3/uL (1.7-8.2); BASOPHILS % (MANUAL) 0 % (0-2); EOSINOPHILS % (MANUAL) 0 % (0-6); LYMPHOCYTES % (MANUAL) 5 % (13-45); METAMYELOCYTES % (MANUAL) 1 % (0); MONOCYTES % (MANUAL) 9 % (3-13); NUCLEATED RED BLOOD CELLS 1 /100 WBC (0); SEGMENTED NEUTROPHILS % (MAN) 85 % (42-78); TOTAL CELLS COUNTED 100
[2018-06-30 09:51] LABS: ANISOCYTOSIS 1+; HYPOCHROMASIA SLIGHT; OVALOCYTES SLIGHT; PLATELET COMMENT ADEQUATE; POIKILOCYTOSIS 1+; POLYCHROMASIA SLIGHT; SCHISTOCYTES SLIGHT; TOXIC VACUOLATION PRESENT
[2018-06-30 09:53] LABS: CREATINE KINASE MB 1.73 ng/mL (<4.55)
[2018-06-30 09:56] LABS: TROPONIN I 0.039 ng/mL
[2018-06-30 10:23] LABS: AMORPHOUS SEDIMENT,URINE TRACE /HPF; APPEARANCE,URINE CLOUDY; BILIRUBIN,URINE NEGATIVE (NEGATIVE); COLOR,URINE YELLOW; GLUCOSE, URINE NEGATIVE (NEGATIVE); KETONES,URINE NEGATIVE (NEGATIVE); LEUKOCYTE ESTERASE,URINE NEGATIVE (NEGATIVE); NITRITE,URINE NEGATIVE (NEGATIVE); PROTEIN,URINE 100 mg/dL (NEGATIVE); URINE SPECIFIC GRAVITY 1.014; UROBILINOGEN,URINE NEGATIVE mg/dL (<2.0)
--- NOTE | 2018-06-30 10:24 | RADIOLOGY REPORT (SQ) ---
EXAM DESCRIPTION: CHEST SINGLE VIEW COMPLETED DATE/TIME: 06/30/2018 9:59 am REASON FOR STUDY: alterred LOC COMPARISON: Chest CT scan dated 06/18/2018 EXAM PARAMETERS: NUMBER OF VIEWS: One view. TECHNIQUE: Single frontal radiographic view of the chest acquired. RADIATION DOSE: NA LIMITATIONS: None. FINDINGS: LUNGS AND PLEURA: A small right and tiny left pleural effusions are identified which appea r decreased in size as compared to the previous chest CT scan. There is associated airspace consolid ation in the right lung base which could represent atelectatic changes or pneumonic consolidation. T here is some minimal associated airspace consolidation in the left lung base which could also represe nt atelectatic changes or minimal basilar infiltrate. Remaining lung montague are clear. MEDIASTINUM AND HILAR STRUCTURES: No masses. Contour normal. HEART AND VASCULAR STRUCTURES: Cardiac silhouette is enlarged. BONES: No acute findings. HARDWARE: None in the chest. OTHER: No other significant finding. IMPRESSION: Bibasilar densities right greater than left as noted above. TECHNICAL DOCUMENTATION: JOB ID: [id number] [employer]- All Rights Reserved Reading location - IP/workstation name: [email or web address]
--- NOTE | 2018-06-30 10:26 | RADIOLOGY REPORT (SQ) ---
EXAM DESCRIPTION: CT HEAD WITHOUT COMPLETED DATE/TIME: 06/30/2018 10:16 am REASON FOR STUDY: New onset A-fib,slurred speech, swallowing difficult COMPARISON: None. TECHNIQUE: Axial images acquired through the brain without intravenous contrast. Images reviewed wi th bone, brain and subdural windows. CT brain, 07/04/2012 Images stored on PACS. All CT scanners at this facility use dose modulation, iterative reconstruction, and/or weight based d osing when appropriate to reduce radiation dose to as low as reasonably achievable (ALARA). [facility]: Dose Right [facility]: CareDose [facility]: Dose Right [facility]: Teradose 4D [facility]: Smart USEUM RADIATION DOSE: CT Rad equipment meets quality standard of care and radiation dose reduction techniq ues were employed. CTDIvol: 53.2 mGy. DLP: 991 mGy-cm. mGy. LIMITATIONS: None. FINDINGS: VENTRICLES: Normal size and contour. CEREBRUM: No masses. No hemorrhage. No midline shift. No evidence for acute infarction. Normal gra y/white matter differentiation. No areas of low density in the white matter. CEREBELLUM: No masses. No hemorrhage. No alteration of density. No evidence for acute infarction. EXTRAAXIAL SPACES: No fluid collections. No masses. ORBITS AND GLOBE: No intra- or extraconal masses. Normal contour of globe without masses. CALVARIUM: No fracture. PARANASAL SINUSES: No fluid or mucosal thickening. SOFT TISSUES: No mass or hematoma. OTHER: No other significant finding. IMPRESSION: No acute intracranial pathology. No noncontrast CT findings to explain symptoms. MRI m ay be used to more sensitively evaluate for acute diffusion restricting infarction if suspected. EVIDENCE OF ACUTE STROKE: NO. COMMENT: Quality ID # 436: Final reports with documentation of one or more dose reduction techniques (e.g., Automated exposure control, adjustment of the mA and/or kV according to patient size, use of iterative reconstruction technique) TECHNICAL DOCUMENTATION: JOB ID: [id number]- All Rights Reserved Reading location - IP/workstation name: [email or web address]
[2018-06-30] MEDS ORDERED: CEFTRIAXONE 1 GM/D5W RTU 1 GM/50 ML RTUPB IV ONE (11:06)
--- NOTE | 2018-06-30 13:34 | RADIOLOGY REPORT (SQ) ---
EXAM DESCRIPTION: CT ABD/PELVIS NO ORAL OR IV COMPLETED DATE/TIME: 06/30/2018 1:08 pm REASON FOR STUDY: acute renal failure, known prostate CA COMPARISON: CT abdomen pelvis 03/16/2015, 06/17/2018 CT chest 06/18/2018 Bone scan 03/16/2018 TECHNIQUE: CT scan of the abdomen and pelvis performed without intravenous or oral contrast. Images reviewed with lung, soft tissue, and bone windows. Reconstructed coronal and sagittal MPR images revi ewed. All images stored on PACS. All CT scanners at this facility use dose modulation, iterative reconstruction, and/or weight based d osing when appropriate to reduce radiation dose to as low as reasonably achievable (ALARA). [facility]: Dose Right [facility]: CareDose [facility]: Dose Right [facility]: Teradose 4D [facility]: Smart Greekdrop RADIATION DOSE: CT Rad equipment meets quality standard of care and radiation dose reduction techniq ues were employed. CTDIvol: 12.2 mGy. DLP: 688 mGy-cm.mGy. LIMITATIONS: None. FINDINGS: LOWER CHEST: Since the prior CT chest 06/18/2018, the patient has developed moderate bilate ral pleural effusions with moderate airspace disease in the bilateral lower lobes, atelectasis versus pneumonia. NON-CONTRASTED LIVER, SPLEEN, ADRENALS: Non contrasted imaging of the liver and spleen is unremarkabl e. Stable bilateral adrenal nodules compared to previous studies. PANCREAS: Non contrasted images of the pancreas are unremarkable GALLBLADDER: Trace right upper quadrant free fluid, trace pericholecystic fluid. No radiopaque galls tones. RIGHT KIDNEY AND URETER: No solid masses. Stable septated cyst right lower pole kidney [address] Stable small non septated cysts in the upper pole kidney less than 1 cm. No significant calci fications. No hydronephrosis or hydroureter. LEFT KIDNEY AND URETER: No suspicious masses. Assessment limited by lack of IV contrast. 1.5 cm low- density benign cortical cyst posterior left lower pole kidney. No significant calcifications. No h ydronephrosis or hydroureter. AORTA AND RETROPERITONEUM: No aneurysm. No retroperitoneal masses or adenopathy. BOWEL AND PERITONEAL CAVITY: There is a small amount of ascites in the right pericolic gutter and pel vis. No free intraperitoneal air. No CT evidence of bowel obstruction APPENDIX: Normal. PELVIS, BLADDER, AND ABDOMINAL WALL:Trace free pelvic fluid. Bilateral inguinal hernias containing f luid. No adenopathy. Non contrasted images of the bladder are unremarkable BONES: No gross bony metastatic disease OTHER: No other significant finding. IMPRESSION: Fluid overload with bilateral moderate pleural effusions and small amount of ascites. Bibasilar consolidation atelectasis versus pneumonia COMMENT: Quality ID # [id number]: Final reports with documentation of one or more dose reduction techniques (e.g., Automated exposure control, adjustment of the mA and/or kV according to patient size, use of iterative reconstruction technique) TECHNICAL DOCUMENTATION: JOB ID: [id number] [employer]- All Rights Reserved Reading location - IP/workstation name: [facility]
[2018-06-30] MEDS ORDERED: MAG HYDROX/AL HYDROX/SIMETH SUSP 30 ML UDCUP PO PRN (13:53)
[2018-06-30] MEDS ORDERED: ALBUTEROL SULFATE 0.083% NEB 2.5 MG/3 ML AMPUL NEB PRN (13:53)
[2018-06-30] MEDS ORDERED: PROMETHAZINE HCL INJ 25 MG/1 ML VIAL IV PRN (13:53)
[2018-06-30] MEDS ORDERED: NORMAL SALINE 1000 ML 1,000 ML IV PRN (13:53)
[2018-06-30] MEDS ORDERED: MAGNESIUM HYDROXIDE SUSP 30 ML UDCUP PO PRN (13:53)
[2018-06-30] MEDS ORDERED: ACETAMINOPHEN 325 MG TABLET PO PRN (13:53)
--- NOTE | 2018-06-30 15:48 | EKG REPORT ---
SEVERITY:- ABNORMAL ECG - ATRIAL FIBRILLATION BORDERLINE LEFT AXIS DEVIATION NONSPECIFIC T ABNORMALITIES, INFERIOR LEADS : Confirmed by: Nancy Haynes MD 30-Jun-2018 15:47:42
[2018-06-30] MEDS: HEPARIN SOD (PORCINE) 5,000 UNIT/ML 1 ML SYRINGE SUBCUT SCH ×2 (16:17→21:10)
[2018-06-30 16:39] LABS: URINE AMPHETAMINES SCREEN NEGATIVE; URINE BARBITURATES SCREEN NEGATIVE; URINE BENZODIAZEPINES SCREEN NEGATIVE; URINE COCAINE SCREEN NEGATIVE; URINE MARIJUANA (THC) SCREEN NEGATIVE; URINE METHADONE SCREEN NEGATIVE; URINE PHENCYCLIDINE SCREEN NEGATIVE
[2018-06-30 17:10] LABS: ARTERIAL BLOOD BASE EXCESS -2.7 mmol/L; ARTERIAL BLOOD H2CO3 0.87 mmol/L (1.05-1.35); ARTERIAL BLOOD HCO3 20.3 mmol/L (20-24); ARTERIAL BLOOD O2 SATURATION 86.2 % (94-98); ARTERIAL BLOOD PCO2 28.9 mmHg (35-45); ARTERIAL BLOOD PH 7.46 (7.35-7.45); ARTERIAL BLOOD PO2 47.1 mmHg (80-100); ARTERIAL BLOOD TOTAL CO2 21.2 mmol/L (23-27)
[2018-06-30 17:11] LABS: ARTERIAL BLOOD FIO2 ROOMAIR
--- NOTE | 2018-06-30 17:57 | PDOC CONSULTATION ---
Consultation Consult Date: 06/30/18 Consult reason:: Hematology/Oncology consultation was requested for patient with prostate cancer and new A-fib. History of Present Illness Admission Date/PCP: 06/30/18 12:55 SHAWN HERNANDEZ MD History of Present Illness: HARMONY RODRIGUEZ is a 72 year old male with recent history of early stage prostate cancer, he has been seen both by Dr. Kwame Serrato of urology [facility], as well as Dr. Phillip Lemons of radiation oncology. He had fiducial placement for the radiation about 2-3 weeks ago, and he was to start radiation on 2017. He was receiving Lupron shots prior to initiation of radiation. He was admitted to this institution earlier this month and treated for pneumonia. [facility] and over the past week has progressively worsened. Family reports that he has been moaning and restless. He has slurred speech, with hallucinations. No obvious pain. Cold and Hot flashes. Zoloft was started last admission, but this is currently on hold. He is now found to be in A-fib which is new. Work-up for the delirium is underway. Past Medical History Cardiac Medical History: Reports: Hypertension Denies: Myocardial Infarction Pulmonary Medical History: Denies: Asthma Neurological Medical History: Denies: Seizures Endocrine Medical History: Reports: Diabetes Mellitus Type 1 Malignancy Medical History: Reports: Other - Prostate Cancer GI Medical History: Denies: Hepatitis, Hiatal Hernia Musculoskeltal Medical History: Reports: Gout Hematology: Denies: Anemia, Sickle Cell Disease Past Surgical History Past Surgical History: Reports: Orthopedic Surgery - lt knee replacement, Tonsillectomy, Other - Prostate biopsy, fiducial placement Denies: Pacemaker Social History Smoking Status: Unknown if Ever Smoked Frequency of Alcohol Use: None Hx Recreational Drug Use: No Drugs: None Hx Prescription Drug Abuse: No - Advance Directive Resuscitation Status: Full Code Family History Family History: Reviewed & Not Pertinent Parental Family History Reviewed: Yes Children Family History Reviewed: No Sibling(s) Family History Reviewed.: Yes Medication/Allergy Home Medications: Allopurinol [Zyloprim 300 mg Tablet] 300 mg PO DAILY 06/17/18 Atorvastatin Calcium [Lipitor 10 mg Tablet] 10 mg PO QHS 06/17/18 Cetirizine HCl [Zyrtec 10 mg Tablet] 10 mg PO DAILY 06/17/18 Fluticasone Propionate [Flonase Nasal Bountiful 50 Mcg/Bountiful 16 gm] 1 spray NASL BID 06/17/18 Hydralazine HCl [Apresoline 50 mg Tablet] 100 mg PO Q8 06/17/18 Latanoprost/Pf [Latanoprost 0.005% Eye Drop] 1 drop OS QHS 06/17/18 Lisinopril [Prinivil 40 mg Tablet] 40 mg PO DAILY 06/17/18 Tamsulosin HCl [Flomax 0.4 mg Cap.sr] 0.4 mg PO QHS 06/17/18 Acetaminophen [Tylenol 325 mg Tablet] 650 mg PO Q4HP PRN tablet 06/24/18 Amlodipine Besylate [Norvasc 10 mg Tablet] 10 mg PO DAILY tablet 06/24/18 Bicalutamide [Casodex 50 mg Tablet] 50 mg PO DAILY tablet 06/24/18 Gabapentin [Neurontin 300 mg Capsule] 300 mg PO BID capsule 06/24/18 Guaifenesin [Robitussin Syrup 200 mg/10 ml Ud Cup] 200 mg PO QIDP PRN udc 06/24 Hydrocodone/Acetaminophen [[place] 5-325 mg Tablet] 1 tab PO Q6HP PRN #60 tablet 06/24/18 Levofloxacin [Levaquin 500 mg Tablet] 500 mg PO DAILY #5 tablet 06/24/18 Sertraline HCl [Zoloft 50 mg Tablet] 50 mg PO DAILY tablet 06/24/18 Sodium Chloride [Sodium Chloride 1 gm Tablet] 1 gm PO Q12 tablet 06/24/18 Lactulose [Cephulac Syrup 20 gm/30 ml Udcup] 30 ml PO Q8 06/30/18 Allergies/Adverse Reactions: No Known Allergies Allergy (Verified 05/13/18 03:20) Review of Systems ROS unobtainable: Due to mental status Review of Systems: Family denies any other complaints other than listed in HPI. Physical Exam Vital Signs: Temp Pulse Resp BP Pulse Ox 97.9 F 77 20 155/51 H 90 L 06/30/18 16:16 06/30/18 16:16 06/30/18 16:16 06/30/18 16:16 06/30/18 16:16 Intake & Output 11/20/18 11/21/18 11/22/18 06:59 06:59 06:59 Weight 76.4 kg General appearance: PRESENT: no acute distress, thin Exam: 72 year old male. Head exam: PRESENT: atraumatic, normocephalic Eye exam: PRESENT: EOMI, other - Pupils dilated.. ABSENT: PERRLA Mouth exam: PRESENT: dry mucosa Neck exam: ABSENT: lymphadenopathy, tenderness Respiratory exam: PRESENT: clear to auscultation yuliya, unlabored Cardiovascular exam: PRESENT: bradycardia, irregular rhythm GI/Abdominal exam: PRESENT: soft. ABSENT: tenderness Extremities exam: PRESENT: +1 edema Neurological exam: PRESENT: altered, awake. ABSENT: oriented to person, oriented to place, oriented to time, oriented to situation Psychiatric exam: PRESENT: agitated Focused psych exam: PRESENT: delusional, restlessness Skin exam: PRESENT: normal color Results Laboratory Results: 06/30/18 06/30/18 06/30/18 15:35 15:50 17:00 Carbonic Acid 0.87 L HCO3/H2CO3 Ratio 23:1 ABG pH 7.46 H ABG pCO2 28.9 L ABG pO2 47.1 L ABG HCO3 20.3 ABG O2 Saturation 86.2 L ABG Base Excess -2.7 FiO2 ROOMAIR Lactic Acid 2.2 H Ammonia < 8.7 L Impressions: Abdomen/Pelvis CT 06/30/18 00:00 IMPRESSION: Fluid overload with bilateral moderate pleural effusions and small amount of ascites. Bibasilar consolidation atelectasis versus pneumonia Chest X-Ray 06/30/18 09:09 IMPRESSION: Bibasilar densities right greater than left as noted above. Head CT 06/30/18 10:00 IMPRESSION: No acute intracranial pathology. No noncontrast CT findings to explain symptoms. MRI may be used to more sensitively evaluate for acute diffusion restricting infarction if suspected. EVIDENCE OF ACUTE STROKE: NO. Status: Image reviewed by me Assessment & Plan - Diagnosis (1) Prostate cancer Is this a current diagnosis for this admission?: Yes Plan: This was reportedly an early stage cancer. Although brain mets is possible as a cause of his delirium, this is not top on my list. Consider MRI brain with contrast once Cr improved. (2) Altered mental status Qualifiers: Altered mental status type: delirium Qualified Code(s): R41.0 - Disorientation, unspecified Is this a current diagnosis for this admission?: Yes Plan: Multiple possible causes at this point. His ammonia and Ca are normal. He is hypoxic and with his A-fib and bradycardia, he could have poor perfusion to the brain. Await ECHO. (3) New onset atrial fibrillation Is this a current diagnosis for this admission?: Yes Plan: I discussed anticoagulation with Joann [place] and I believe his risk of bleeding at this point is greater than his risk of clotting. Also, MRI brain to rule out CVA or hemorrhage should be performed prior to starting any anticoagulation. Would consider anticoagulation in the future if his Cr and mental status improve. (4) CKD (chronic kidney disease) stage 3, GFR 30-59 ml/min Is this a current diagnosis for this admission?: Yes Plan: He also has evidence of acute renal insufficiency in addition to the chronic renal disease. I am hopeful that fluids will help this, but if it is due to poor perfusion from the heart, this may not improve. - Plan Summary Plan Summary: Patient was discussed at length with Joann See. I am happy to continue to follow him. I will be available by phone over the next few days and Dr. Eason will return on Thursday. Please call with any concerns.
[2018-06-30] MEDS ORDERED: DEXTROSE 50%-WATER 25 GM/50 ML DISP.SYRIN IV PRN ×2 (18:09)
[2018-06-30] MEDS ORDERED: DEXTROSE 40% GEL 15 GM TUBE PO PRN ×2 (18:09)
[2018-06-30] MEDS ORDERED: INSULIN LISPRO 100 UNIT/ML 3 ML VIAL SUBCUT PRN (18:09)
[2018-06-30] MEDS ORDERED: GLUCAGON,HUMAN RECOMB 1 MG INJ IM PRN (18:09)
--- NOTE | 2018-06-30 18:55 | PDOC H&P ---
History of Present Illness Admission Date/PCP: 06/30/18 12:55 SHAWN HERNANDEZ MD Patient complains of: Confusion History of Present Illness: HARMONY RODRIGUEZ is a 72 year old male significant for prostate cancer with lung and bone metastasis, type 2 diabetes mellitus, stage III kidney disease, CHF, and hypertension who presented to the emergency department via EMS from [facility] with limited information. Per emergency department provider, EMS was called for increased confusion, however, received limited information from SNF personnel. Per the ED provider, the patient's family reports that they had noted a decrease in his oral intake and slurred speech beginning 3-4 days ago that has gradually worsened. At the time of my evaluation, the patient is oriented to self, place, year, but unable to answer any other questions clearly due to garbled speech. He does intermittently follow commands with guidance/prompting. He is not noted to have any focal deficits and is moving all extremities equally. Unfortunately, family members were not present at the time of my arrival in the emergency department or during follow-up assessment once the patient was placed on the floor. Evaluation in the emergency department reveals leukocytosis of 16.7 (Unchanged from day of previous discharge on 06/24/18 when his WBC was noted to be 16.9), and anemia with a hemoglobin of 9.0 (also unchanged from day of discharge 06/24) , elevated INR of 1.53 (patient not known to be on anticoagulant therapy), hypernatremia (NA 147.7), acute renal failure (creatinine 2.35, BUN 73 with baseline Cr of 1.[address] Whitt's most recent progress note from his previous admission), elevated lactic acid (2.2) and elevated LFTs. Urinalysis was negative.EKG demonstrated new onset atrial fibrillation with a heart rate of 57. Chest x-ray demonstrated bibasilar densities with the right greater than left, similar to previous chest CT, with associated tiny pleural effusions. Head CT is benign. He is referred to the hospitalist service for admission and management of the above stated complaints. Past Medical History Cardiac Medical History: Reports: Congestive Heart Failure, Hypertension Denies: Myocardial Infarction Pulmonary Medical History: Reports: Pneumonia, Other Denies: Asthma EENT Medical History: Reports: None Neurological Medical History: Reports: None Denies: Seizures Endocrine Medical History: Reports: Diabetes Mellitus Type 1 Renal/ Medical History: Reports: Chronic Kidney Disease Malignancy Medical History: Reports: Other - Prostate Cancer w/ Lung and Bone mets GI Medical History: Denies: Hepatitis, Hiatal Hernia Musculoskeltal Medical History: Reports: Gout Skin Medical History: Reports: None Psychiatric Medical History: Reports: Depression Traumatic Medical History: Reports: None Hematology: Reports: Anemia Denies: Sickle Cell Disease Past Surgical History Past Surgical History: Reports: Orthopedic Surgery - lt knee replacement, Tonsillectomy, Other - Prostate biopsy, fiducial placement Denies: Pacemaker Social History Information Source: Emergency Med Personnel, [facility] Records Lives with: Detention Smoking Status: Unknown if Ever Smoked Frequency of Alcohol Use: None Hx Recreational Drug Use: No Drugs: None Hx Prescription Drug Abuse: No - Advance Directive Resuscitation Status: Full Code Surrogate healthcare decision maker:: Pt is unable to identify a surrogate decision maker; no family members are present at this time. Family History Family History: Limited due to patient's current mental status. Parental Family History Reviewed: No - Unable to review due to patient's altered mental status. Children Family History Reviewed: No Sibling(s) Family History Reviewed.: No Medication/Allergy Home Medications: Allopurinol [Zyloprim 300 mg Tablet] 300 mg PO DAILY 06/17/18 Atorvastatin Calcium [Lipitor 10 mg Tablet] 10 mg PO QHS 06/17/18 Cetirizine HCl [Zyrtec 10 mg Tablet] 10 mg PO DAILY 06/17/18 Fluticasone Propionate [Flonase Nasal [place] 50 Mcg/[place] 16 gm] 1 spray NASL BID 06/17/18 Hydralazine HCl [Apresoline 50 mg Tablet] 100 mg PO Q8 06/17/18 Latanoprost/Pf [Latanoprost 0.005% Eye Drop] 1 drop OS QHS 06/17/18 Lisinopril [Prinivil 40 mg Tablet] 40 mg PO DAILY 06/17/18 Tamsulosin HCl [Flomax 0.4 mg Cap.sr] 0.4 mg PO QHS 06/17/18 Acetaminophen [Tylenol 325 mg Tablet] 650 mg PO Q4HP PRN tablet 06/24/18 Amlodipine Besylate [Norvasc 10 mg Tablet] 10 mg PO DAILY tablet 06/24/18 Bicalutamide [Casodex 50 mg Tablet] 50 mg PO DAILY tablet 06/24/18 Gabapentin [Neurontin 300 mg Capsule] 300 mg PO BID capsule 06/24/18 Guaifenesin [Robitussin Syrup 200 mg/10 ml Ud Cup] 200 mg PO QIDP PRN udc 06/24 Hydrocodone/Acetaminophen [Healy 5-325 mg Tablet] 1 tab PO Q6HP PRN #60 tablet 06/24/18 Levofloxacin [Levaquin 500 mg Tablet] 500 mg PO DAILY #5 tablet 06/24/18 Sertraline HCl [Zoloft 50 mg Tablet] 50 mg PO DAILY tablet 06/24/18 Sodium Chloride [Sodium Chloride 1 gm Tablet] 1 gm PO Q12 tablet 06/24/18 Lactulose [Cephulac Syrup 20 gm/30 ml Udcup] 30 ml PO Q8 06/30/18 Allergies/Adverse Reactions: No Known Allergies Allergy (Verified 05/13/18 03:20) Review of Systems ROS unobtainable: Due to mental status Physical Exam Vital Signs: Temp Pulse Resp BP Pulse Ox 97.9 F 77 20 155/51 H 90 L 06/30/18 16:16 06/30/18 16:16 06/30/18 16:16 06/30/18 16:16 06/30/18 16:16 Intake & Output 06/29/18 06/30/18 07/01/18 06:59 06:59 06:59 Weight 76.4 kg General appearance: PRESENT: no acute distress, thin, well-developed, well- nourished, other - Chronically ill-appearing Head exam: PRESENT: atraumatic, normocephalic Eye exam: PRESENT: conjunctiva pink, EOMI, PERRLA. ABSENT: scleral icterus Ear exam: PRESENT: normal external ear exam Mouth exam: PRESENT: dry mucosa, tongue midline Teeth exam: PRESENT: poor dentation Neck exam: ABSENT: carotid bruit, JVD, lymphadenopathy, thyromegaly Respiratory exam: PRESENT: clear to auscultation yuliya. ABSENT: rales, rhonchi, wheezes Cardiovascular exam: PRESENT: irregular rhythm, +S1, +S2. ABSENT: diastolic murmur, rubs, systolic murmur Pulses: PRESENT: normal dorsalis pedis pul Vascular exam: PRESENT: normal capillary refill GI/Abdominal exam: PRESENT: normal bowel sounds, soft. ABSENT: distended, guarding, mass, organolmegaly, rebound, tenderness Rectal exam: PRESENT: deferred Extremities exam: PRESENT: full ROM. ABSENT: calf tenderness, clubbing, pedal edema, +1 edema Neurological exam: PRESENT: alert, awake, oriented to person, oriented to place , oriented to time, CN II-XII grossly intact, other - Technically A&O x3; though unable to clearly speak more than 2 words or answer detailed questions without speech becoming garbled. Does follow simple commands with guidance/ prompting.. ABSENT: oriented to situation, motor sensory deficit Psychiatric exam: ABSENT: homicidal ideation, suicidal ideation Skin exam: PRESENT: dry, intact, warm. ABSENT: cyanosis, rash Results Laboratory Results: 06/30/18 06/30/18 06/30/18 15:35 15:50 17:00 Carbonic Acid 0.87 L HCO3/H2CO3 Ratio 23:1 ABG pH 7.46 H ABG pCO2 28.9 L ABG pO2 47.1 L ABG HCO3 20.3 ABG O2 Saturation 86.2 L ABG Base Excess -2.7 FiO2 ROOMAIR Lactic Acid 2.2 H Ammonia < 8.7 L Impressions: Abdomen/Pelvis CT 06/30/18 00:00 IMPRESSION: Fluid overload with bilateral moderate pleural effusions and small amount of ascites. Bibasilar consolidation atelectasis versus pneumonia Chest X-Ray 06/30/18 09:09 IMPRESSION: Bibasilar densities right greater than left as noted above. Head CT 06/30/18 10:00 IMPRESSION: No acute intracranial pathology. No noncontrast CT findings to explain symptoms. MRI may be used to more sensitively evaluate for acute diffusion restricting infarction if suspected. EVIDENCE OF ACUTE STROKE: NO. Assessment & Plan - Diagnosis (1) Altered mental status Is this a current diagnosis for this admission?: Yes Plan: The patient presents with altered mental status. Per EMS personnel and ED provider, the patient's family reports that he had decreased p.o. intake beginning 3-4 days ago with onset of slurred speech that has progressively worsened until the point that he has become incomprehensible. He is able to speak 1-2 words clearly prior to his speech becoming garbled. He does follow simple commands. No focal deficits; moving all extremities spontaneously and equally. Head CT is benign. Ammonia normal. UDS and serum EtOH are negative. Unclear etiology; likely multifactorial secondary to metabolic encephalopathy evidenced by elevated LFTs, acute renal failure, hypoxia (ABG reveals respiratory alkalosis), poor cardiac output in setting of CHF and new onset A. fib with bradycardia, and profound dehydration noted on exam (hypernatremia, dry mucous membranes, skin tenting). The patient is admitted to the medical floor on continuous cardiac telemetry. He is ordered a one-to-one sitter for safety as the patient is noted to be confused and impulsive. Will begin rehydrating with IV fluids; discussed with nursing to be careful attention to fluid volume as the patient's underlying CHF predisposes him to fluid volume overload. Blood and urine cultures are pending. Urinalysis is negative and patient is afebrile. Although leukocytosis is elevated, this is unchanged from his time of discharge earlier this month; low suspicion for infectious process. We will continue to monitor closely but hold on antibiotics at this time. Supplemental oxygen as needed to maintain oxygen saturations greater than 92% as the patient does not have a history of COPD or chronic respiratory failure. Spoke with Dr. Yancey, appreciate her evaluation and recommendations. Will attempt to correct the patient's acute kidney injury so that he can tolerate a brain MRI with contrast to evaluate for possible brain metastases. Fall and aspiration precautions; speech therapy is consulted for consistency recommendations. Pured diet with assistance for now. Will hold on physical therapy and he will the patient's mental status improved. (2) Acute on chronic kidney failure Qualifiers: Chronic kidney disease stage: stage 3 (moderate) Is this a current diagnosis for this admission?: Yes Plan: Per Dr. Whitt's note from his previous admission, the patient's baseline creatinine is 1.6. At time of discharge 06/24/2018 his creatinine had returned to baseline with a BUN of 39. On admission today, he is noted to have a creatinine of 2.35 and a BUN of 73. Sodium is elevated to 147.7. Fortunately, potassium remains normal at 3.9. On clinical exam, the patient is clearly dehydrated. Noncontrasted abdominal and pelvic CT is negative for hydronephrosis or post obstruction related to the patient's prostate cancer. The patient was provided a 1 L bolus while in the emergency department. We will continue gentle IV fluid rehydration at 150 ml/hour. Nursing is asked to monitor closely for evidence of fluid volume overload due to the patient's underlying heart failure. We will avoid nephrotoxic medications as able. Steve catheter for strict I'&O's. Daily chemistry. Should the patient not show improvement with a.m. labs, will consult nephrology. (3) Hypernatremia Is this a current diagnosis for this admission?: Yes Plan: Secondary to report of poor p.o. intake. During the patient's previous admission he was actually hyponatremic. Evaluation at that time was unclear whether or not the patient had SIADH or if low sodium was a result of polydipsia. He received appropriate IV fluids, was educated on dietary and fluid intake. Sodium is currently elevated to 147.7. He is received a 1 L normal saline bolus by the emergency department provider. We will continue gentle IV fluid rehydration. We will monitor daily chemistries. (4) Diabetes Qualifiers: Diabetes mellitus type: type 2 Is this a current diagnosis for this admission?: Yes Plan: A1c (12/29/17) 4.7%. Glucose is elevated on random chemistry today to 321 despite report of poor p.o. intake for the last several days. Patient is placed on a consistent carb diet. Accu-Cheks before meals and at bedtime with Humalog for sliding scale coverage. (5) New onset atrial fibrillation Is this a current diagnosis for this admission?: Yes Plan: EKG demonstrates atrial fibrillation with a rate in the 50s. Rhythm strip from previous admission this month demonstrates normal sinus rhythm. TSH is normal. Echocardiogram is pending. Possibly related to electrolyte derangements, acute respiratory issue/hypoxia ( lung metastasis, bibasilar consolidations, consideration of PE -unable to rule out at this time). Will start daily aspirin therapy. Metoprolol 12.5 mg every 12 hours; holding parameters for bradycardia. Discussed with Dr. Mckeon; concern for bleeding with full dose anticoagulation. We will continue DVT prophylaxis heparin only at this time. Consider cardiology consultation. (6) Rhabdomyolysis Qualifiers: Rhabdomyolysis type: non-traumatic Qualified Code(s): M62.82 - Rhabdomyolysis Is this a current diagnosis for this admission?: Yes Plan: Secondary to poor p.o. intake resulting in dehydration and bedbound status. CK is elevated to 817. IV fluid rehydration. Every 2 turns; once altered mental status is improved enough to assure patient safety, increase mobility. Daily chemistries. (7) Anemia, chronic disease Is this a current diagnosis for this admission?: Yes Plan: Anemia of chronic disease related to chronic kidney disease stage III, prostate cancer with bony metastasis, and iron deficiency related to poor nutrition. We will place patient on multivitamin with iron. Registered dietitian is consulted. We will monitor daily CBC and transfuse as necessary. (8) Congestive heart failure Qualifiers: Qualified Code(s): I50.9 - Heart failure, unspecified Is this a current diagnosis for this admission?: Yes Plan: Patient with a history of CHF. Previous echocardiogram is from February 2017 which demonstrated an LVEF greater than 65% with mild pulmonary hypertension. Unable to assess diastolic dysfunction at that time due to study quality. ProBNP today is elevated to 8400 (up from 597 last year). Imaging (chest x-ray and abdominal/pelvic CT) suggestive of fluid volume overload with moderate bilateral pleural effusions and small amount of ascites. However, on exam the patient is clearly dehydrated. Will begin gentle IV fluid rehydration; nursing is advised of concern for potential for fluid volume overload and asked to monitor closely. Is placed on a cardiac diet. Daily weights, Steve catheter for strict I'&O's. Continuing amlodipine, start low-dose metoprolol. Holding diuretics secondary to dehydration and acute renal failure. Echocardiogram is pending. Consider cardiology consultation. (9) Dehydration Is this a current diagnosis for this admission?: Yes Plan: Evidenced by hypernatremia, dry mucous membranes, skin tenting. Continue IV fluids. Remaining plan as above. (10) Leukocytosis Qualifiers: Leukocytosis type: unspecified Qualified Code(s): D72.829 - Elevated white blood cell count, unspecified Is this a current diagnosis for this admission?: Yes Plan: Stable; WBC is currently 16.7. At time of discharge on 06/24/18, WBCs were elevated to 16.9. Currently afebrile; no report of infectious symptoms. Urinalysis is negative. Chest x-ray demonstrates bibasilar consolidation; atelectasis versus pneumonia. Blood and urine cultures are pending. During previous admission, patient was treated for pneumonia. He was discharged on p.o. Levaquin and reportedly completed his course of therapy. On exam, lung sounds are clear. Imaging is questionable for pneumonia, however, atelectasis is just is possible. We will rehydrate overnight with IV fluids and repeat imaging in the morning. Will hold on antibiotics at this time his persistent leukocytosis is likely an inflammatory reaction related to his metastatic prostate cancer. (11) Abnormal LFTs Is this a current diagnosis for this admission?: Yes Plan: Patient with elevated LFTs; actually increased from previous admission. MELD score 19 Total Bili 0.7, Direct Bili 0.6, AST 184, ALT 34, Alk Phos 425 Ammonia <8.7 Albumin 3.0 UDS and serum alcohol are negative Noncontrasted CT of the abdomen and pelvis is an unremarkable liver today. Contrasted abdominal CT (03/2018) also showed a normal liver size without masses and no dilated ducts. Hepatitis panel is pending. Echocardiogram is pending. - Time Time Spent: Greater than 70 Minutes Medications reviewed and adjusted accordingly: Yes - Inpatient Certification Based on my medical assessment, after consideration of the patient's comorbidities, presenting symptoms, or acuity I expect that the services needed warrant INPATIENT care.: Yes I certify that my determination is in accordance with my understanding of Medicare's requirements for reasonable and necessary INPATIENT services [42 CFR 412.3e].: Yes Medical Necessity: Failure to Improve With Outpatient Therapy, Need Close Monitoring Due to Risk of Patient Decompensation, Need For IV Fluids, Need For Continuous Telemetry Monitoring
[2018-06-30] MEDS: ASPIRIN 81 MG TABLET, CHEWABLE PO SCH (21:05)
[2018-06-30] MEDS: TAMSULOSIN HCL 0.4 MG CAP.SR.24H PO SCH (21:10)
[2018-06-30] MEDS: METOPROLOL TARTRATE 25 MG TABLET PO SCH (21:10)
[2018-06-30] MEDS: FAMOTIDINE INJ/PF 20 MG/2 ML SDV IV SCH (21:11)
[2018-06-30] MEDS ORDERED: FAMOTIDINE INJ/PF 20 MG/2 ML SDV IV SCH (22:00)
[2018-06-30] MEDS ORDERED: METOPROLOL TARTRATE 25 MG TABLET PO SCH (22:00)
[2018-07-01] MEDS: TAMSULOSIN HCL 0.4 MG CAP.SR.24H PO SCH (01:30)
[2018-07-01] MEDS: METOPROLOL TARTRATE 25 MG TABLET PO SCH ×2 (01:30→09:03)
[2018-07-01 05:10] LABS: HEMATOCRIT 25.8 % (37.9-51.0); HEMOGLOBIN 8.5 g/dL (13.5-17.0); MEAN CORPUSCULAR HEMOGLOBIN 25.5 pg (27.0-33.4); MEAN CORPUSCULAR HGB CONC 32.7 g/dL (32.0-36.0); MEAN CORPUSCULAR VOLUME 78 fl (80-97); PLATELET COUNT 218 10^3/uL (150-450); RED BLOOD COUNT 3.31 10^6/uL (4.35-5.55); RED CELL DISTRIBUTION WIDTH 18.1 % (11.5-14.0); WHITE BLOOD COUNT 16.8 10^3/uL (4.0-10.5)
[2018-07-01] MEDS: HEPARIN SOD (PORCINE) 5,000 UNIT/ML 1 ML SYRINGE SUBCUT SCH ×3 (05:34→22:30)
[2018-07-01 05:41] LABS: ALANINE AMINOTRANSFERASE 29 U/L (21-72); ALBUMIN 2.7 g/dL (3.5-5.0); ALKALINE PHOSPHATASE 358 U/L (38-126); ANION GAP 16 (5-19); ASPARTATE AMINO TRANSFERASE 145 U/L (17-59); BILIRUBIN,DIRECT 0.5 mg/dL (0.0-0.4); BILIRUBIN,TOTAL 0.6 mg/dL (0.2-1.3); BLOOD UREA NITROGEN 66 mg/dL (7-20); CALCIUM 7.7 mg/dL (8.4-10.2); CARBON DIOXIDE 17 mmol/L (22-30); CHLORIDE 119 mmol/L (98-107); CREATINE KINASE 617 U/L (55-170); GLUCOSE 224 mg/dL (75-110); POTASSIUM 3.8 mmol/L (3.6-5.0); SODIUM 151.7 mmol/L (137-145); TOTAL PROTEIN 5.6 g/dL (6.3-8.2)
[2018-07-01] MEDS ORDERED: 1/2 NORMAL SALINE 1,000 ML IV PRN (06:57)
--- NOTE | 2018-07-01 08:22 | RADIOLOGY REPORT (SQ) ---
EXAM DESCRIPTION: CHEST SINGLE VIEW COMPLETED DATE/TIME: 07/01/2018 8:13 am REASON FOR STUDY: hypoxia COMPARISON: 06/30/2018. FINDINGS: Single-view chest AP portable upright. Approximately 0802 hours. Slightly worsening pulmonary findings. There is diminished aeration in both lung bases, as before. Dense consolidation, volume loss and sma ll effusions noted. Mild vascular congestion. No pneumothorax. Stable cardiomediastinal silhouette. TECHNICAL DOCUMENTATION: JOB ID: [id number] Reading location - IP/workstation name: [email or web address]
[2018-07-01] MEDS: ASPIRIN 81 MG TABLET, CHEWABLE PO SCH (09:02)
[2018-07-01] MEDS: MULTIVITAMINS W-IRON TABLET, CHEWABLE PO SCH (09:03)
[2018-07-01] MEDS: DOCUSATE SODIUM 100 MG CAPSULE PO SCH (09:03)
[2018-07-01] MEDS: AMLODIPINE BESYLATE 10 MG TABLET PO SCH (09:05)
--- NOTE | 2018-07-01 09:40 | EKG REPORT ---
SEVERITY:- ABNORMAL ECG - SINUS OR ECTOPIC ATRIAL RHYTHM FIRST DEGREE AV BLOCK BORDERLINE LEFT AXIS DEVIATION BORDERLINE T ABNORMALITIES, INFERIOR LEADS BORDERLINE PROLONGED QT INTERVAL : Confirmed by: Nancy Haynes MD 01-Jul-2018 09:40:06
[2018-07-01 11:38] LABS: ARTERIAL BLOOD BASE EXCESS -5.3 mmol/L; ARTERIAL BLOOD H2CO3 0.72 mmol/L (1.05-1.35); ARTERIAL BLOOD HCO3 17.2 mmol/L (20-24); ARTERIAL BLOOD O2 SATURATION 92.5 % (94-98); ARTERIAL BLOOD PCO2 23.8 mmHg (35-45); ARTERIAL BLOOD PH 7.48 (7.35-7.45); ARTERIAL BLOOD PO2 57.9 mmHg (80-100); ARTERIAL BLOOD TOTAL CO2 17.9 mmol/L (23-27)
[2018-07-01 11:40] LABS: ARTERIAL BLOOD FIO2 1.5L
[2018-07-01 14:33] LABS: HEMOGLOBIN 9.4 g/dL (13.5-17.0); MEAN CORPUSCULAR HEMOGLOBIN 25.4 pg (27.0-33.4); MEAN CORPUSCULAR HGB CONC 32.5 g/dL (32.0-36.0); MEAN CORPUSCULAR VOLUME 78 fl (80-97); PLATELET COUNT 222 10^3/uL (150-450); RED BLOOD COUNT 3.72 10^6/uL (4.35-5.55); RED CELL DISTRIBUTION WIDTH 18.3 % (11.5-14.0); WHITE BLOOD COUNT 18.8 10^3/uL (4.0-10.5)
[2018-07-01 14:37] LABS: ANION GAP 18 (5-19); BLOOD UREA NITROGEN 65 mg/dL (7-20); CARBON DIOXIDE 15 mmol/L (22-30); CHLORIDE 120 mmol/L (98-107); GLUCOSE 256 mg/dL (75-110); POTASSIUM 3.9 mmol/L (3.6-5.0); SODIUM 152.8 mmol/L (137-145)
[2018-07-01] MEDS ORDERED: DEXTROSE 5%-WATER 1000 ML 1,000 ML IV PRN (15:24)
--- NOTE | 2018-07-01 16:36 | PDOC PROGRESS REPORT ---
Subjective Progress Note for:: 07/01/18 Subjective:: The patient is a 72 year old male significant for prostate cancer with lung and bone metastasis, type 2 diabetes mellitus, stage III kidney disease, CHF, and hypertension who was admitted on 06/30/2018 for altered mental status and acute renal failure. The patient was seen on morning rounds. He was found resting in bed comfortably on supplemental oxygen at 2 L/min. He was arousable but with intelligible speech, but made fair attempts to follow commands. ROS is limited secondary to mental status. I attempted to call patient's NOK; Lilian Kaur, at 11 am. Voicemail was left requesting that call is returned. This afternoon, attempted again was able to reach the patient's daughter, Kamille, who provided telephone consent for MRI screening. She had no specific questions or concerns and is anxiously awaiting results of MRI. No concerns per nursing. Reason For Visit: ALTERED MENTAL STATUS,METABOLIC ENCEPHALOPATHY Physical Exam Vital Signs: Temp Pulse Resp BP Pulse Ox 98.3 F 79 20 155/48 H 93 07/01/18 07:44 07/01/18 07:44 07/01/18 07:44 07/01/18 07:44 07/01/18 07:44 Intake & Output 06/30/18 07/01/18 07/02/18 06:59 06:59 06:59 Intake Total 1000 Output Total 650 Balance -650 1000 Weight 77.2 kg General appearance: PRESENT: no acute distress, thin, well-developed, well- nourished Head exam: PRESENT: atraumatic, normocephalic Eye exam: PRESENT: conjunctiva pink, EOMI, PERRLA. ABSENT: scleral icterus Ear exam: PRESENT: normal external ear exam Mouth exam: PRESENT: dry mucosa, tongue midline Neck exam: ABSENT: carotid bruit, JVD, lymphadenopathy, thyromegaly Respiratory exam: PRESENT: clear to auscultation yuliya, symmetrical, unlabored. ABSENT: rales, rhonchi, wheezes Cardiovascular exam: PRESENT: irregular rhythm, +S1, +S2. ABSENT: diastolic murmur, rubs, systolic murmur Pulses: PRESENT: normal dorsalis pedis pul Vascular exam: PRESENT: normal capillary refill GI/Abdominal exam: PRESENT: normal bowel sounds, soft. ABSENT: distended, guarding, mass, organolmegaly, rebound, tenderness Rectal exam: PRESENT: deferred Extremities exam: ABSENT: calf tenderness, clubbing, pedal edema, +1 edema Neurological exam: PRESENT: other - Arousable, intelligible speech, correctional medicine physician weak but equal, plantar flexion weak but equal. Patient is unable to lift arms or legs off bed. Appears to have a right-sided facial droop today. Failed bedside swallow eval.. ABSENT: motor sensory deficit Skin exam: PRESENT: dry, intact, warm. ABSENT: cyanosis, rash Results Laboratory Results: 07/01/18 03:54 07/01/18 03:54 06/30/18 06/30/18 06/30/18 15:35 15:35 15:50 WBC RBC Hgb Hct MCV MCH MCHC RDW Plt Count Carbonic Acid HCO3/H2CO3 Ratio ABG pH ABG pCO2 ABG pO2 ABG HCO3 ABG O2 Saturation ABG Base Excess FiO2 Sodium Potassium Chloride Carbon Dioxide Anion Gap BUN Creatinine Est GFR ( Amer) Est GFR (Non-Af Amer) Glucose Lactic Acid 2.2 H Calcium Magnesium 2.5 H Total Bilirubin AST ALT Alkaline Phosphatase Ammonia < 8.7 L Total Protein Albumin 06/30/18 07/01/18 07/01/18 17:00 03:54 03:54 WBC 16.8 H RBC 3.31 L Hgb 8.5 L Hct 25.8 L MCV 78 L MCH 25.5 L MCHC 32.7 RDW 18.1 H Plt Count 218 Carbonic Acid 0.87 L HCO3/H2CO3 Ratio 23:1 ABG pH 7.46 H ABG pCO2 28.9 L ABG pO2 47.1 L ABG HCO3 20.3 ABG O2 Saturation 86.2 L ABG Base Excess -2.7 FiO2 ROOMAIR Sodium 151.7 H Potassium 3.8 Chloride 119 H Carbon Dioxide 17 L Anion Gap 16 BUN 66 H Creatinine 1.92 H Est GFR ( Amer) 42 L Est GFR (Non-Af Amer) 35 L Glucose 224 H Lactic Acid Calcium 7.7 L Magnesium Total Bilirubin 0.6 AST 145 H ALT 29 Alkaline Phosphatase 358 H Ammonia Total Protein 5.6 L Albumin 2.7 L 07/01/18 07/01/18 03:54 03:54 Creatine Kinase 617 H NT-Pro-B Natriuret Pep 9380 H Impressions: Abdomen/Pelvis CT 06/30/18 00:00 IMPRESSION: Fluid overload with bilateral moderate pleural effusions and small amount of ascites. Bibasilar consolidation atelectasis versus pneumonia Head CT 06/30/18 10:00 IMPRESSION: No acute intracranial pathology. No noncontrast CT findings to explain symptoms. MRI may be used to more sensitively evaluate for acute diffusion restricting infarction if suspected. EVIDENCE OF ACUTE STROKE: NO. Assessment & Plan - Diagnosis (1) Altered mental status Is this a current diagnosis for this admission?: Yes Plan: Worsened today; patient is now arousable, intelligible speech, questionable right-sided facial droop though moves all extremities equally (weak). The patient presents with altered mental status. Per EMS personnel and ED provider, the patient's family reports that he had decreased p.o. intake beginning 3-4 days ago with onset of slurred speech that has progressively worsened until the point that he has become incomprehensible. He is able to speak 1-2 words clearly prior to his speech becoming garbled. He does follow simple commands. Head CT is benign. Ammonia normal. UDS and serum EtOH are negative. MRI Head w/o pending. WBC trending up, though remains afebrile and without evidence of infectious process. Blood and urine cultures negative at 1 day. ABG revealed mixed respiratory and metabolic alkalosis. Unclear etiology; likely multifactorial secondary to metabolic encephalopathy evidenced by elevated LFTs, acute renal failure, hypoxia (ABG reveals respiratory alkalosis), poor cardiac output in setting of CHF and new onset A. fib with bradycardia, and profound dehydration noted on exam (hypernatremia, dry mucous membranes, skin tenting). Concern for metastasis vs CVA. The patient is admitted to the medical floor on continuous cardiac telemetry. He is ordered a one-to-one sitter for safety as the patient is noted to be confused and impulsive. Continue IVF. Oncology has been consulted; appreciate their assistance. Failed bedside swallow eval; now in n.p.o. status. Fall and aspiration precautions. (2) Acute on chronic kidney failure Qualifiers: Chronic kidney disease stage: stage 3 (moderate) Is this a current diagnosis for this admission?: Yes Plan: Improved; creatinine and BUN are trending down. Cr 2.35--> 1.92--> 1.[address] Whitt's note from his previous admission, the patient's baseline creatinine is 1.6. At time of discharge 06/24/2018 his creatinine had returned to baseline with a BUN of 39. Sodium is elevated to 152.8. Fortunately, potassium remains normal at 3.9. On clinical exam, the patient is clearly dehydrated. Noncontrasted abdominal and pelvic CT is negative for hydronephrosis or post obstruction related to the patient's prostate cancer. Continue IVF. Nursing is asked to monitor closely for evidence of fluid volume overload due to the patient's underlying heart failure. We will avoid nephrotoxic medications as able. Steve catheter for strict I'&O's. Serial chemistries. (3) Hypernatremia Is this a current diagnosis for this admission?: Yes Plan: Trending up. 147.7--> 151.7--> 152.8 During the patient's previous admission he was actually hyponatremic. Evaluation at that time was unclear whether or not the patient had SIADH or if low sodium was a result of polydipsia. He received appropriate IV fluids, was educated on dietary and fluid intake at time of discharge. Initially placed on NS, changed to 1/2 NS this am; Na continued to trend up. Will begin D5W at 3ml/kg/hr (200 ml/hr) and monitor with serial chemistries q 6 hours. (4) Diabetes Qualifiers: Diabetes mellitus type: type 2 Is this a current diagnosis for this admission?: Yes Plan: A1c (12/29/17) 4.7%. Glucose is persistently elevated this admission. Accu-Cheks every 6 hours with Humalog for sliding scale coverage. Hypoglycemia protocol in place. (5) New onset atrial fibrillation Is this a current diagnosis for this admission?: Yes Plan: EKG demonstrates atrial fibrillation with a rate in the 50s. Rhythm strip from previous admission this month demonstrates normal sinus rhythm. TSH is normal. Echocardiogram is pending. Possibly related to electrolyte derangements, acute respiratory issue/hypoxia ( lung metastasis, bibasilar consolidations, consideration of PE -unable to rule out at this time). Will start daily aspirin therapy. Metoprolol 12.5 mg every 12 hours; holding parameters for bradycardia. Discussed with Dr. Mckeon; concern for bleeding with full dose anticoagulation. We will continue DVT prophylaxis heparin only at this time. Consider cardiology consultation. (6) Rhabdomyolysis Qualifiers: Rhabdomyolysis type: non-traumatic Qualified Code(s): M62.82 - Rhabdomyolysis Is this a current diagnosis for this admission?: Yes Plan: Improved. Secondary to poor p.o. intake resulting in dehydration and bedbound status. CK is elevated to 817--> 617. IV fluid rehydration. Every 2 turns; once altered mental status is improved enough to assure patient safety, increase mobility. (7) Anemia, chronic disease Is this a current diagnosis for this admission?: Yes Plan: Stable; Hgb 9.0--> 8.5--> 9.4 Anemia of chronic disease related to chronic kidney disease stage III, prostate cancer with bony metastasis, and iron deficiency related to poor nutrition. We will place patient on multivitamin with iron. Registered dietitian is consulted. We will monitor daily CBC and transfuse as necessary. (8) Congestive heart failure Is this a current diagnosis for this admission?: Yes Plan: Patient with a history of CHF. Previous echocardiogram is from February 2017 which demonstrated an LVEF greater than 65% with mild pulmonary hypertension. Unable to assess diastolic dysfunction at that time due to study quality. ProBNP up slightly with IVF; 8400--> 9300 (up from 597 last year). Imaging (chest x-ray and abdominal/pelvic CT) suggestive of fluid volume overload with moderate bilateral pleural effusions and small amount of ascites. However, on exam the patient is clearly dehydrated. Continue IV fluid rehydration; nursing is advised of concern for potential for fluid volume overload and asked to monitor closely. Daily weights, Steve catheter for strict I'&O's. Continuing amlodipine, start low-dose metoprolol w/ holding parameters. Holding diuretics secondary to dehydration and acute renal failure. Echocardiogram is pending. Consider cardiology consultation. (9) Dehydration Is this a current diagnosis for this admission?: Yes Plan: Evidenced by hypernatremia, dry mucous membranes, skin tenting. Continue IV fluids. Remaining plan as above. (10) Leukocytosis Qualifiers: Leukocytosis type: unspecified Qualified Code(s): D72.829 - Elevated white blood cell count, unspecified Is this a current diagnosis for this admission?: Yes Plan: Trending up. WBC is currently 16.7--> 18.8. At time of discharge on 06/24/18, WBCs were elevated to 16.9. Currently afebrile; no report of infectious symptoms, lung sounds clear. Urinalysis is negative. Chest x-ray demonstrates bibasilar consolidation; atelectasis versus pneumonia. Repeat Chest x-ray today slightly worsened. Blood and urine cultures are negative at 24 hours. During previous admission, patient was treated for pneumonia. He was discharged on p.o. Levaquin and reportedly completed his course of therapy. On exam, lung sounds are clear. Imaging is questionable for pneumonia, however, atelectasis is just is possible. Will hold on antibiotics at this time his persistent leukocytosis is likely an inflammatory reaction related to his metastatic prostate cancer. (11) Abnormal LFTs Is this a current diagnosis for this admission?: Yes Plan: Patient with elevated LFTs; actually increased from previous admission. MELD score 19 Total Bili 0.7, Direct Bili 0.6, AST 184, ALT 34, Alk Phos 425 Ammonia <8.7 Albumin 3.0 UDS and serum alcohol are negative Noncontrasted CT of the abdomen and pelvis is an unremarkable liver today. Contrasted abdominal CT (03/2018) also showed a normal liver size without masses and no dilated ducts. Hepatitis panel is pending. Echocardiogram is pending. - Time Time Spent with patient: 25-34 minutes Medications reviewed and adjusted accordingly: Yes
--- NOTE | 2018-07-01 17:14 | RADIOLOGY REPORT (SQ) ---
EXAM DESCRIPTION: MRI HEAD WITHOUT COMPLETED DATE/TIME: 07/01/2018 5:01 pm REASON FOR STUDY: AMS, known metastatic CA COMPARISON: CT head 06/30/2018 TECHNIQUE: Multiplanar imaging includes non-contrasted T1, T2, FLAIR, and diffusion with ADC map seq uences. Images stored on PACS. LIMITATIONS: Motion artifact. FINDINGS: ANATOMY: No anomalies. Normal vascular flow voids. Pituitary fossa normal. CSF SPACES: Prominence of the lateral ventricles secondary to mild cortical atrophy. CEREBRUM: Sulci and gyri normal in size and contour. Normal white matter signal on FLAIR imaging. No evidence of hemorrhage, mass, or extraaxial fluid collection. POSTERIOR FOSSA: No signal alteration. No hemorrhage. No edema, masses or mass effect. Internal tia tory canals, cerebello-pontine angles, mastoids normal. DIFFUSION IMAGING: Negative for acute or sub-acute infarction. ORBITS: No masses. Globes normal. PARANASAL SINUSES: No fluid levels. Mucosa normal. OTHER: No other significant finding. IMPRESSION: Mild involutional changes of aging with no acute intracranial imaging findings on this s lightly limited study. EVIDENCE OF ACUTE STROKE: NO. TECHNICAL DOCUMENTATION: JOB ID: [id number] [employer]- All Rights Reserved Reading location - IP/workstation name: [email or web address]
[2018-07-01] MEDS ORDERED: VANCOMYCIN HCL 0 MG in DEXTROSE 5%-WATER 250 ML IV NR (17:15)
[2018-07-01] MEDS ORDERED: VANCOMYCIN HCL INJ 1000 MG VIAL IV PRN (17:26)
[2018-07-01] MEDS ORDERED: VANCOMYCIN HCL INJ 1000 MG VIAL ONE (17:42)
[2018-07-01] MEDS ORDERED: PIPERACILLIN/TAZOBACTAM 3.375 GM VIAL IV ONE (17:43)
[2018-07-01] MEDS ORDERED: PIPERACILLIN SODIUM/TAZOBACTAM 3.375 GM in NORMAL SALINE 100 ML IV SCH (18:00)
[2018-07-01] MEDS ORDERED: VANCOMYCIN HCL 1,250 MG in DEXTROSE 5%-WATER 250 ML IV ONE (18:00)
[2018-07-01] MEDS: FAMOTIDINE INJ/PF 20 MG/2 ML SDV IV SCH (22:30)
[2018-07-01 22:32] LABS: ANION GAP 14 (5-19); BLOOD UREA NITROGEN 63 mg/dL (7-20); CALCIUM 7.9 mg/dL (8.4-10.2); CARBON DIOXIDE 16 mmol/L (22-30); CHLORIDE 121 mmol/L (98-107); GLUCOSE 300 mg/dL (75-110); POTASSIUM 3.9 mmol/L (3.6-5.0); SODIUM 151.2 mmol/L (137-145)
[2018-07-02 05:06] LABS: INTERNATIONAL RATION (INR) 1.46; PROTHROMBIN TIME 18.4 SEC (11.4-15.4)
[2018-07-02 05:07] LABS: HEMATOCRIT 28.4 % (37.9-51.0); HEMOGLOBIN 9.2 g/dL (13.5-17.0); MEAN CORPUSCULAR HEMOGLOBIN 25.5 pg (27.0-33.4); MEAN CORPUSCULAR HGB CONC 32.6 g/dL (32.0-36.0); MEAN CORPUSCULAR VOLUME 78 fl (80-97); PLATELET COUNT 200 10^3/uL (150-450); RED BLOOD COUNT 3.63 10^6/uL (4.35-5.55); RED CELL DISTRIBUTION WIDTH 18.2 % (11.5-14.0); WHITE BLOOD COUNT 18.3 10^3/uL (4.0-10.5)
[2018-07-02 05:21] LABS: ALANINE AMINOTRANSFERASE 28 U/L (21-72); ALBUMIN 2.7 g/dL (3.5-5.0); ALKALINE PHOSPHATASE 335 U/L (38-126); ANION GAP 18 (5-19); ASPARTATE AMINO TRANSFERASE 94 U/L (17-59); BILIRUBIN,DIRECT 0.6 mg/dL (0.0-0.4); BILIRUBIN,TOTAL 0.6 mg/dL (0.2-1.3); BLOOD UREA NITROGEN 60 mg/dL (7-20); CALCIUM 7.8 mg/dL (8.4-10.2); CARBON DIOXIDE 16 mmol/L (22-30); CHLORIDE 119 mmol/L (98-107); GLUCOSE 345 mg/dL (75-110); POTASSIUM 3.8 mmol/L (3.6-5.0); SODIUM 152.8 mmol/L (137-145); TOTAL PROTEIN 5.6 g/dL (6.3-8.2)
[2018-07-02] MEDS: HEPARIN SOD (PORCINE) 5,000 UNIT/ML 1 ML SYRINGE SUBCUT SCH ×3 (05:22→21:34)
[2018-07-02 05:35] LABS: ABSOLUTE LYMPHOCYTES# (MANUAL) 1.1 10^3/uL (0.5-4.7); ABSOLUTE MONOCYTES # (MANUAL) 0.9 10^3/uL (0.1-1.4); ABSOLUTE NEUTROPHILS# (MANUAL) 16.3 10^3/uL (1.7-8.2); BASOPHILS % (MANUAL) 0 % (0-2); EOSINOPHILS % (MANUAL) 0 % (0-6); LYMPHOCYTES % (MANUAL) 6 % (13-45); MONOCYTES % (MANUAL) 5 % (3-13); NUCLEATED RED BLOOD CELLS 2 /100 WBC (0); SEGMENTED NEUTROPHILS % (MAN) 89 % (42-78); TOTAL CELLS COUNTED 100
[2018-07-02 05:36] LABS: ANISOCYTOSIS 2+; BURR CELLS 1+; POIKILOCYTOSIS 1+; SCHISTOCYTES SLIGHT; TOXIC GRANULATION 1+
[2018-07-02 05:37] LABS: PLATELET COMMENT ADEQUATE; PLATELET LARGE PRESENT
[2018-07-02] MEDS: DEXTROSE 5%-WATER 1000 ML 1,000 ML IV PRN ×2 (06:44→16:39)
[2018-07-02] MEDS: CEFTRIAXONE SODIUM 1,000 MG in DEXTROSE 5%-WATER 50 ML IV SCH (09:15)
[2018-07-02] MEDS: INSULIN LISPRO 100 UNIT/ML 3 ML VIAL SUBCUT PRN ×2 (09:20→11:52)
[2018-07-02] MEDS: METOPROLOL TARTRATE 25 MG TABLET PO SCH ×2 (10:00→21:25)
[2018-07-02] MEDS: AMLODIPINE BESYLATE 10 MG TABLET PO SCH (10:00)
[2018-07-02] MEDS ORDERED: CEFTRIAXONE 1 GM/D5W RTU 1 GM/50 ML RTUPB IV SCH (10:00)
[2018-07-02 11:12] LABS: TOTAL PROTEIN 5.4 g/dL (6.3-8.2)
[2018-07-02 11:13] LABS: ANION GAP 13 (5-19); BLOOD UREA NITROGEN 56 mg/dL (7-20); CALCIUM 7.9 mg/dL (8.4-10.2); CARBON DIOXIDE 19 mmol/L (22-30); CHLORIDE 119 mmol/L (98-107); GLUCOSE 384 mg/dL (75-110); POTASSIUM 3.6 mmol/L (3.6-5.0); SODIUM 150.8 mmol/L (137-145)
[2018-07-02 13:48] LABS: APPEARANCE ALL TUBES CLEAR; COLOR ALL TUBES COLORLESS; CSF TUBE NUMBER 3
[2018-07-02 13:49] LABS: RED BLOOD CELL,CSF 37 /uL (0-10)
[2018-07-02 13:50] LABS: WHITE BLOOD CELL,CSF 2 /uL (0-5)
[2018-07-02 13:52] LABS: GLUCOSE,CSF 177 mg/dL (40-70); PROTEIN,CSF 67 mg/dL (12-60)
--- NOTE | 2018-07-02 14:50 | RADIOLOGY REPORT (SQ) ---
EXAM DESCRIPTION: LUMBAR PUNCTURE; FLUORO/NEEDLE PLACEMENT/SPINE COMPLETED DATE/TIME: 07/02/2018 12:58 pm REASON FOR STUDY: AMS, leukocytosis; AMS COMPARISON: MRI brain 07/01/2018. FLUOROSCOPY TIME: 29 seconds 1 images saved to PACS. TECHNIQUE: Fluoroscopic guided lumbar puncture with opening and closing pressures. LIMITATIONS: None. PROCEDURE: After written consent and assessment were obtained, the patient was brought into the fluo roscopy room and placed prone on the table. The patient's lower back was prepped in a sterile fashio n and an entry site was selected under live fluoroscopic guidance. The entry site was anesthetized wi th 1% lidocaine. A 20 gauge needle was advanced through the skin and into the thecal sac at the level of L2-L3. An opening pressure of 20 water units was obtained. After approximately 8ml of CSF was dr ained, a closing pressure of 17 water units was obtained. The needle was removed and a sterile bandag e was placed of the site. Specimens were sent to the lab for testing. A fluoroscopic spot image was s aved to PACS confirming level access. FINDINGS: Clear CSF IMPRESSION: Lumbar puncture under fluoroscopy. No immediate complication. COMMENT: Patient medication list reviewed:Yes- Quality ID# [id number]:Eligible professional attests to docu menting in the medical record they obtained, updated, or reviewed the patient's current medications.. Quality ID [id number]: Final reports for procedures using fluoroscopy that document radiation exposure isaias stalin, or exposure time and number of fluorographic images (if radiation exposure indices are not avail able) TECHNICAL DOCUMENTATION: JOB ID: [id number] [employer]- All Rights Reserved Reading location - IP/workstation name: [email or web address]
--- NOTE | 2018-07-02 15:37 | PDOC PROGRESS REPORT ---
Subjective Progress Note for:: 07/02/18 Subjective:: The patient is a 72 year old male significant for prostate cancer with lung and bone metastasis, type 2 diabetes mellitus, stage III kidney disease, CHF, and hypertension who was admitted on 06/30/2018 for altered mental status and acute renal failure. The patient was seen on morning rounds with his daughter and son-in-law present. He was found resting in bed comfortably on supplemental oxygen at 2 L/ min. He was arousable and able to say "good morning" and answer "I'm feeling fine," but with very difficult ot understand speech. All other words were incomprehensible. The patient fair attempts to follow commands, but with weak response ROS is limited secondary to mental status. The patient's daughter confirms that he was in good health on Thursday and was able to participate with physical therapy on a exercise bicycle. She states that on Thursday, he seemed overly fatigued and with slurred speech. She states that the nurses at the [facility] found his oxygen to be slightly low and placed him on O2; the following day he was send to the ED for AMS. She reports that the only abnormal symptom she had noted with occasional dyspnea and nonproductive cough that she attributed to his recent pneumonia. She is appreciative of the continued work up with plans for LP and thoracentesis. She has no further questions at this time. No concerns per nursing. Reason For Visit: ALTERED MENTAL STATUS,METABOLIC ENCEPHALOPATHY Physical Exam Vital Signs: Temp Pulse Resp BP Pulse Ox 97.8 F 60 20 134/51 H 93 07/02/18 11:19 07/02/18 14:35 07/02/18 14:35 07/02/18 11:19 07/02/18 14:35 Intake & Output 07/01/18 07/02/18 07/03/18 06:59 06:59 06:59 Intake Total 3350 Output Total 650 1700 325 Balance -650 1650 -325 Weight 77.2 kg 72 kg General appearance: PRESENT: no acute distress, thin, well-developed, well- nourished Head exam: PRESENT: atraumatic, normocephalic Eye exam: PRESENT: conjunctiva pink, EOMI, PERRLA. ABSENT: scleral icterus Ear exam: PRESENT: normal external ear exam Mouth exam: PRESENT: moist, tongue midline Neck exam: ABSENT: carotid bruit, JVD, lymphadenopathy, thyromegaly Respiratory exam: PRESENT: decreased breath sounds - R>L, symmetrical, unlabored , other - O2 via NC. ABSENT: rales, rhonchi, wheezes Cardiovascular exam: PRESENT: irregular rhythm, +S1, +S2. ABSENT: diastolic murmur, rubs, systolic murmur Pulses: PRESENT: normal dorsalis pedis pul Vascular exam: PRESENT: normal capillary refill GI/Abdominal exam: PRESENT: normal bowel sounds, soft. ABSENT: distended, guarding, mass, organolmegaly, rebound, tenderness Rectal exam: PRESENT: deferred Extremities exam: PRESENT: full ROM. ABSENT: calf tenderness, clubbing, pedal edema Neurological exam: PRESENT: other - Arousable, garbled speech, fair attempts to follow directions, however overhead cleaner strength further diminished from yesterday. Patient is unable to lift arms or legs off bed. Right-sided facial droop today. Failed bedside swallow eval.. ABSENT: motor sensory deficit Psychiatric exam: PRESENT: appropriate affect, normal mood. ABSENT: homicidal ideation, suicidal ideation Skin exam: PRESENT: dry, intact, warm. ABSENT: cyanosis, rash Results Laboratory Results: 07/02/18 03:44 07/02/18 10:28 07/01/18 07/02/18 07/02/18 21:30 03:44 03:44 WBC 18.3 H RBC 3.63 L Hgb 9.2 L Hct 28.4 L MCV 78 L MCH 25.5 L MCHC 32.6 RDW 18.2 H Plt Count 200 Seg Neutrophils % Not Reportable Lymphocytes % Not Reportable Monocytes % Not Reportable Eosinophils % Not Reportable Basophils % Not Reportable Absolute Neutrophils Not Reportable Absolute Lymphocytes Not Reportable Absolute Monocytes Not Reportable Absolute Eosinophils Not Reportable Absolute Basophils Not Reportable Sodium 151.2 H 152.8 H Potassium 3.9 3.8 Chloride 121 H 119 H Carbon Dioxide 16 L 16 L Anion Gap 14 18 BUN 63 H 60 H Creatinine 1.77 H 1.64 H Est GFR ( Amer) 46 L 50 L Est GFR (Non-Af Amer) 38 L 41 L Glucose 300 H 345 H Calcium 7.9 L 7.8 L Total Bilirubin 0.6 AST 94 H ALT 28 Alkaline Phosphatase 335 H Total Protein 5.6 L Albumin 2.7 L Fluid Tube Number Fluid Glucose Fluid Total Protein Fluid LDH Fluid Amylase CSF Volume CSF Appearance CSF Color CSF WBC CSF RBC CSF Glucose CSF Total Protein 07/02/18 07/02/18 07/02/18 10:28 10:28 12:46 WBC RBC Hgb Hct MCV MCH MCHC RDW Plt Count Seg Neutrophils % Lymphocytes % Monocytes % Eosinophils % Basophils % Absolute Neutrophils Absolute Lymphocytes Absolute Monocytes Absolute Eosinophils Absolute Basophils Sodium 150.8 H Potassium 3.6 Chloride 119 H Carbon Dioxide 19 L Anion Gap 13 BUN 56 H Creatinine 1.61 H Est GFR ( Amer) 51 L Est GFR (Non-Af Amer) 42 L Glucose 384 H Calcium 7.9 L Total Bilirubin AST ALT Alkaline Phosphatase Total Protein 5.4 L Albumin Fluid Tube Number Fluid Glucose Fluid Total Protein Fluid LDH Fluid Amylase Cancelled CSF Volume CSF Appearance CSF Color CSF WBC CSF RBC CSF Glucose CSF Total Protein 07/02/18 07/02/18 07/02/18 12:46 12:46 12:46 WBC RBC Hgb Hct MCV MCH MCHC RDW Plt Count Seg Neutrophils % Lymphocytes % Monocytes % Eosinophils % Basophils % Absolute Neutrophils Absolute Lymphocytes Absolute Monocytes Absolute Eosinophils Absolute Basophils Sodium Potassium Chloride Carbon Dioxide Anion Gap BUN Creatinine Est GFR ( Amer) Est GFR (Non-Af Amer) Glucose Calcium Total Bilirubin AST ALT Alkaline Phosphatase Total Protein Albumin Fluid Tube Number 3 Fluid Glucose Cancelled Fluid Total Protein Cancelled Fluid LDH Cancelled Fluid Amylase CSF Volume 8.0 CSF Appearance CLEAR CSF Color COLORLESS CSF WBC 2 CSF RBC 37 CSF Glucose CSF Total Protein 07/02/18 12:46 WBC RBC Hgb Hct MCV MCH MCHC RDW Plt Count Seg Neutrophils % Lymphocytes % Monocytes % Eosinophils % Basophils % Absolute Neutrophils Absolute Lymphocytes Absolute Monocytes Absolute Eosinophils Absolute Basophils Sodium Potassium Chloride Carbon Dioxide Anion Gap BUN Creatinine Est GFR ( Amer) Est GFR (Non-Af Amer) Glucose Calcium Total Bilirubin AST ALT Alkaline Phosphatase Total Protein Albumin Fluid Tube Number Fluid Glucose Fluid Total Protein Fluid LDH Fluid Amylase CSF Volume CSF Appearance CSF Color CSF WBC CSF RBC CSF Glucose 177 H CSF Total Protein 67 H 07/01/18 07/01/18 03:54 03:54 Creatine Kinase 617 H NT-Pro-B Natriuret Pep 9380 H Impressions: Abdomen/Pelvis CT 06/30/18 00:00 IMPRESSION: Fluid overload with bilateral moderate pleural effusions and small amount of ascites. Bibasilar consolidation atelectasis versus pneumonia Head CT 06/30/18 10:00 IMPRESSION: No acute intracranial pathology. No noncontrast CT findings to explain symptoms. MRI may be used to more sensitively evaluate for acute diffusion restricting infarction if suspected. EVIDENCE OF ACUTE STROKE: NO. Head MRI 07/01/18 14:54 IMPRESSION: Mild involutional changes of aging with no acute intracranial imaging findings on this slightly limited study. EVIDENCE OF ACUTE STROKE: NO. Assessment & Plan - Diagnosis (1) Altered mental status Is this a current diagnosis for this admission?: Yes Plan: Worsened today; patient is now arousable, intelligible speech, questionable right-sided facial droop though moves all extremities equally (weak). The patient presents with altered mental status. Per EMS personnel and ED provider, the patient's family reports that he had decreased p.o. intake beginning 3-4 days ago with onset of slurred speech that has progressively worsened until the point that he has become incomprehensible. He is able to speak 1-2 words clearly prior to his speech becoming garbled. He does follow simple commands. Head CT is benign. Ammonia normal. UDS and serum EtOH are negative. WBC trended up slightly up, though remains afebrile and without evidence of infectious process. Blood and urine cultures negative at 2 days. ABG revealed mixed respiratory and metabolic alkalosis. Noncontrasted head MRI demonstrated mild involutional changes of aging with no acute intracranial findings. Negative for CVA. Unclear etiology; likely multifactorial secondary to metabolic encephalopathy evidenced by elevated LFTs, acute renal failure, hypoxia (ABG reveals respiratory alkalosis), poor cardiac output in setting of CHF and new onset A. fib with bradycardia, and profound dehydration noted on exam (hypernatremia, dry mucous membranes, skin tenting). The patient is admitted to the medical floor on continuous cardiac telemetry. He is ordered a one-to-one sitter for safety as the patient is noted to be confused and impulsive. Continue IVF. Lumbar puncture completed today; initial evaluation is reassuring with normal opening pressure and mildly elevated protein and glucose which is attributed to his hyperglycemia. Gram stain and cultures are pending. He has been empirically placed on IV vancomycin and Rocephin. Oncology has been consulted; appreciate their assistance. Failed bedside swallow eval; now in n.p.o. status. Fall and aspiration precautions. Planning for thoracentesis; will evaluate pleural fluid for infection. I spoke with the patient's daughter today who requests aggressive workup and interventions; patient remains full code. (2) Acute on chronic kidney failure Qualifiers: Chronic kidney disease stage: stage 3 (moderate) Is this a current diagnosis for this admission?: Yes Plan: Resolved; patient has returned to his baseline creatinine of 1.61. Per Dr. Whitt's note from his previous admission, the patient's baseline creatinine is 1.6. At time of discharge 06/24/2018 his creatinine had returned to baseline with a BUN of 39. Sodium is elevated to 150.8. Fortunately, potassium remains normal at 3.9. Noncontrasted abdominal and pelvic CT is negative for hydronephrosis or post obstruction related to the patient's prostate cancer. Continue IVF. Nursing is asked to monitor closely for evidence of fluid volume overload due to the patient's underlying heart failure. We will avoid nephrotoxic medications as able. Pharmacy to dose vancomycin. Steve catheter for strict I'&O's. Daily chemistries. (3) Hypernatremia Is this a current diagnosis for this admission?: Yes Plan: Improving with IV fluids. 147.7--> 151.7--> 152.8--> 150.8 During the patient's previous admission he was actually hyponatremic. Evaluation at that time was unclear whether or not the patient had SIADH or if low sodium was a result of polydipsia. He received appropriate IV fluids, was educated on dietary and fluid intake at time of discharge. Continue D5W at 100 ml/hr Monitor with serial chemistries. (4) Diabetes Qualifiers: Diabetes mellitus type: type 2 Chronic kidney disease stage: stage 3 ( moderate) Is this a current diagnosis for this admission?: Yes Plan: A1c (12/29/17) 4.7%. Glucose is persistently elevated this admission. Accu-Cheks every 6 hours with Humalog for sliding scale coverage. Hypoglycemia protocol in place. (5) New onset atrial fibrillation Is this a current diagnosis for this admission?: Yes Plan: EKG demonstrates atrial fibrillation with a rate in the 50s. Rhythm strip from previous admission this month demonstrates normal sinus rhythm. TSH is normal. Echocardiogram is pending. Possibly related to electrolyte derangements, acute respiratory issue/hypoxia ( lung metastasis, bibasilar consolidations, consideration of PE -unable to rule out at this time). Will start daily aspirin therapy. Metoprolol 12.5 mg every 12 hours; holding parameters for bradycardia. Discussed with Dr. Mckeon; concern for bleeding with full dose anticoagulation. We will continue DVT prophylaxis heparin only at this time. Consider cardiology consultation. (6) Rhabdomyolysis Qualifiers: Rhabdomyolysis type: non-traumatic Qualified Code(s): M62.82 - Rhabdomyolysis Is this a current diagnosis for this admission?: Yes Plan: Improved. Secondary to poor p.o. intake resulting in dehydration and bedbound status. CK is elevated to 817--> 617. IV fluid rehydration. Every 2 turns; once altered mental status is improved enough to assure patient safety, increase mobility. (7) Anemia, chronic disease Is this a current diagnosis for this admission?: Yes Plan: Stable; Hgb 9.0--> 8.5--> 9.4--> 9.2 Anemia of chronic disease related to chronic kidney disease stage III, prostate cancer with bony metastasis, and iron deficiency related to poor nutrition. We will place patient on multivitamin with iron. Registered dietitian is consulted. We will monitor daily CBC and transfuse as necessary. (8) Congestive heart failure Is this a current diagnosis for this admission?: Yes Plan: Patient with a history of CHF. Previous echocardiogram is from February 2017 which demonstrated an LVEF greater than 65% with mild pulmonary hypertension. Unable to assess diastolic dysfunction at that time due to study quality. ProBNP up slightly with IVF; 8400--> 9300 (up from 597 last year). Imaging (chest x-ray and abdominal/pelvic CT) suggestive of fluid volume overload with moderate bilateral pleural effusions and small amount of ascites. However, on exam the patient is clearly dehydrated. Continue IV fluid rehydration; nursing is advised of concern for potential for fluid volume overload and asked to monitor closely. Daily weights, Steve catheter for strict I'&O's. Continuing amlodipine, start low-dose metoprolol w/ holding parameters. Holding diuretics secondary to dehydration and acute renal failure. Echocardiogram is pending. Consider cardiology consultation. (9) Dehydration Is this a current diagnosis for this admission?: Yes Plan: Improved. Continue IV fluids. Remaining plan as above. (10) Leukocytosis Qualifiers: Leukocytosis type: unspecified Qualified Code(s): D72.829 - Elevated white blood cell count, unspecified Is this a current diagnosis for this admission?: Yes Plan: WBC is currently 16.7--> 18.8--> 18.3. At time of discharge on 06/24/18, WBCs were elevated to 16.9. Currently afebrile; no report of infectious symptoms, lung sounds clear. Urinalysis is negative. Chest x-ray demonstrates bibasilar consolidation; atelectasis versus pneumonia. Repeat Chest x-ray today slightly worsened. Blood and urine cultures are negative at 2 days. Initial CSF evaluation is reassuring; Gram stain and C&S pending. During previous admission, patient was treated for pneumonia. He was discharged on p.o. Levaquin and reportedly completed his course of therapy. On exam, lung sounds are clear. Imaging is questionable for pneumonia, however, atelectasis is just is possible. Have empirically started IV vancomycin and rocephin; will adjust as cultures result. (11) Abnormal LFTs Is this a current diagnosis for this admission?: Yes Plan: Patient with elevated LFTs; increased from previous admission. MELD score 19 Total Bili 0.7, Direct Bili 0.6, AST 184, ALT 34, Alk Phos 425 Ammonia <8.7 Albumin 3.0 UDS and serum alcohol are negative Noncontrasted CT of the abdomen and pelvis is an unremarkable liver today. Contrasted abdominal CT (03/2018) also showed a normal liver size without masses and no dilated ducts. Hepatitis panel is pending. Echocardiogram is pending. (12) Pleural effusion Is this a current diagnosis for this admission?: Yes Plan: Bilateral, moderate, pleural effusions noted on CT ABD/Pelvis. Diminished bibasilar lung sounds R>L. Unclear etiology; possibly related to infectious process (recently treated for pneumonia), cancer (known lung metastasis), CHF (proBNP is elevated, echocardiogram pending), and liver derangements (LFTs trending down). Mycoplasma pneumonia IgG and IgM pending. Cultures and antibiotics as above. Planning for thoracentesis; per radiology could not be completed on same day as lumbar puncture. Supplemental oxygen as needed to maintain oxygen saturations >90%. - Time Time Spent with patient: 25-34 minutes Medications reviewed and adjusted accordingly: Yes
[2018-07-02] MEDS: MULTIVITAMINS W-IRON TABLET, CHEWABLE PO SCH (16:23)
[2018-07-02] MEDS: ASPIRIN 81 MG TABLET, CHEWABLE PO SCH (16:23)
[2018-07-02] MEDS: DOCUSATE SODIUM 100 MG CAPSULE PO SCH (16:23)
[2018-07-02 16:37] LABS: ANION GAP 13 (5-19); BLOOD UREA NITROGEN 59 mg/dL (7-20); CARBON DIOXIDE 19 mmol/L (22-30); CHLORIDE 120 mmol/L (98-107); CREATINE KINASE 367 U/L (55-170); GLUCOSE 235 mg/dL (75-110); POTASSIUM 3.7 mmol/L (3.6-5.0)
[2018-07-02] MEDS: VANCOMYCIN HCL 1,000 MG in DEXTROSE 5%-WATER 250 ML IV SCH (17:44)
[2018-07-02] MEDS ORDERED: MORPHINE SULFATE 10 MG/ML INJ IV ONE (19:00)
[2018-07-02] MEDS: TAMSULOSIN HCL 0.4 MG CAP.SR.24H PO SCH (21:25)
[2018-07-02] MEDS: FAMOTIDINE INJ/PF 20 MG/2 ML SDV IV SCH (21:34)
[2018-07-02 22:39] LABS: ANION GAP 12 (5-19); BLOOD UREA NITROGEN 55 mg/dL (7-20); CALCIUM 7.8 mg/dL (8.4-10.2); CARBON DIOXIDE 19 mmol/L (22-30); CHLORIDE 119 mmol/L (98-107); GLUCOSE 231 mg/dL (75-110); POTASSIUM 3.7 mmol/L (3.6-5.0); SODIUM 149.9 mmol/L (137-145)
[2018-07-03] MEDS: INSULIN LISPRO 100 UNIT/ML 3 ML VIAL SUBCUT PRN ×4 (01:08→18:32)
[2018-07-03 03:36] LABS: HEPATITIS A AB IGM Negative (Negative); HEPATITIS B CORE AB IGM Negative (Negative); HEPATITS B SURFACE ANTIGEN Negative (Negative)
[2018-07-03 05:00] LABS: HEMATOCRIT 28.4 % (37.9-51.0); HEMOGLOBIN 9.4 g/dL (13.5-17.0); MEAN CORPUSCULAR HEMOGLOBIN 25.5 pg (27.0-33.4); MEAN CORPUSCULAR HGB CONC 32.9 g/dL (32.0-36.0); MEAN CORPUSCULAR VOLUME 77 fl (80-97); PLATELET COUNT 177 10^3/uL (150-450); RED BLOOD COUNT 3.68 10^6/uL (4.35-5.55); RED CELL DISTRIBUTION WIDTH 18.4 % (11.5-14.0); WHITE BLOOD COUNT 16.4 10^3/uL (4.0-10.5)
[2018-07-03 05:14] LABS: ANION GAP 11 (5-19); BLOOD UREA NITROGEN 55 mg/dL (7-20); CALCIUM 7.8 mg/dL (8.4-10.2); CARBON DIOXIDE 19 mmol/L (22-30); CHLORIDE 119 mmol/L (98-107); GLUCOSE 223 mg/dL (75-110); POTASSIUM 3.6 mmol/L (3.6-5.0); SODIUM 149.4 mmol/L (137-145)
[2018-07-03 05:24] LABS: ABSOLUTE LYMPHOCYTES# (MANUAL) 1.5 10^3/uL (0.5-4.7); ABSOLUTE MONOCYTES # (MANUAL) 0.7 10^3/uL (0.1-1.4); ABSOLUTE NEUTROPHILS# (MANUAL) 14.3 10^3/uL (1.7-8.2); BASOPHILS % (MANUAL) 0 % (0-2); EOSINOPHILS % (MANUAL) 0 % (0-6); LYMPHOCYTES % (MANUAL) 9 % (13-45); MONOCYTES % (MANUAL) 4 % (3-13); SEGMENTED NEUTROPHILS % (MAN) 87 % (42-78); TOTAL CELLS COUNTED 100
[2018-07-03 05:26] LABS: ANISOCYTOSIS 2+; OVALOCYTES SLIGHT; POIKILOCYTOSIS SLIGHT; SCHISTOCYTES SLIGHT; TEAR DROP CELLS SLIGHT; TOXIC GRANULATION 1+; TOXIC VACUOLATION PRESENT
[2018-07-03 05:27] LABS: PLATELET COMMENT ADEQUATE
[2018-07-03] MEDS: DEXTROSE 5%-WATER 1000 ML 1,000 ML IV PRN ×2 (06:01→18:36)
[2018-07-03] MEDS: HEPARIN SOD (PORCINE) 5,000 UNIT/ML 1 ML SYRINGE SUBCUT SCH ×3 (06:01→22:15)
[2018-07-03 09:03] LABS: INTERNATIONAL RATION (INR) 1.34; PARTIAL THROMBOPLASTIN TIME 35.8 SEC (23.5-35.8); PROTHROMBIN TIME 17.3 SEC (11.4-15.4)
[2018-07-03 09:22] LABS: ALANINE AMINOTRANSFERASE 25 U/L (21-72); ALBUMIN 2.3 g/dL (3.5-5.0); ALKALINE PHOSPHATASE 299 U/L (38-126); ANION GAP 14 (5-19); ASPARTATE AMINO TRANSFERASE 92 U/L (17-59); BILIRUBIN,DIRECT 0.4 mg/dL (0.0-0.4); BILIRUBIN,TOTAL 0.5 mg/dL (0.2-1.3); BLOOD UREA NITROGEN 51 mg/dL (7-20); CALCIUM 7.7 mg/dL (8.4-10.2); CARBON DIOXIDE 18 mmol/L (22-30); CHLORIDE 117 mmol/L (98-107); CREATINE KINASE 291 U/L (55-170); GLUCOSE 245 mg/dL (75-110); LIPASE 239.6 U/L (23-300); POTASSIUM 3.8 mmol/L (3.6-5.0); SODIUM 148.7 mmol/L (137-145); TOTAL PROTEIN 5.1 g/dL (6.3-8.2)
[2018-07-03] MEDS: CEFTRIAXONE SODIUM 1,000 MG in DEXTROSE 5%-WATER 50 ML IV SCH (10:55)
--- NOTE | 2018-07-03 12:28 | PDOC PROGRESS REPORT ---
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 The patient was seen on morning rounds. He was found resting in bed comfortably on supplemental oxygen at 2 L/min. He was arousable and oriented to person place and time. He was clearly able to tell me his name, location, but then began to have slightly slurred speech and drifted back to sleep. The patient fair attempts to follow commands with improved strength from yesterday. Facial droop is no longer present. ROS is limited secondary to mental status. No concerns per nursing; reports that he is on the schedule for his thoracentesis today. Reason For Visit: ALTERED MENTAL STATUS,METABOLIC ENCEPHALOPATHY Physical Exam Vital Signs: Temp Pulse Resp BP Pulse Ox 98.2 F 77 14 138/56 H 97 07/03/18 08:30 07/03/18 08:30 07/03/18 08:30 07/03/18 08:30 07/03/18 08:30 Intake & Output 07/02/18 07/03/18 07/04/18 06:59 06:59 06:59 Intake Total 3350 2292 Output Total 1700 1425 Balance 1650 867 Weight 72 kg 81.5 kg General appearance: PRESENT: no acute distress, cooperative, thin, well- developed, well-nourished Head exam: PRESENT: atraumatic, normocephalic Eye exam: PRESENT: conjunctiva pink, EOMI, PERRLA. ABSENT: scleral icterus Ear exam: PRESENT: normal external ear exam Mouth exam: PRESENT: dry mucosa, tongue midline Neck exam: ABSENT: carotid bruit, JVD, lymphadenopathy, thyromegaly Respiratory exam: PRESENT: clear to auscultation yuliya, decreased breath sounds - Bibasilar; absent to the right base, symmetrical, unlabored, other - Supplemental oxygen via nasal cannula. ABSENT: rales, rhonchi, wheezes Cardiovascular exam: PRESENT: irregular rhythm, +S1, +S2. ABSENT: diastolic murmur, rubs, systolic murmur Pulses: PRESENT: normal dorsalis pedis pul Vascular exam: PRESENT: normal capillary refill GI/Abdominal exam: PRESENT: normal bowel sounds, soft. ABSENT: distended, guarding, mass, organolmegaly, rebound, tenderness Rectal exam: PRESENT: deferred Gentrourinary exam: PRESENT: indwelling catheter Extremities exam: ABSENT: calf tenderness, clubbing, pedal edema, +1 edema Neurological exam: PRESENT: alert, oriented to person, oriented to place, oriented to time, CN II-XII grossly intact, other - Arousable, initially speech is clear however become slurred as the patient fatigues. Follows commands; director voice strength equal 4/5, dorsiflexion equal 3/5 -significant improvements from yesterday. ABSENT: oriented to situation, motor sensory deficit Skin exam: PRESENT: dry, intact, warm. ABSENT: cyanosis, rash Results Laboratory Results: 07/03/18 03:56 07/03/18 08:45 07/02/18 07/02/18 07/02/18 12:46 12:46 12:46 WBC RBC Hgb Hct MCV MCH MCHC RDW Plt Count Seg Neutrophils % Lymphocytes % Monocytes % Eosinophils % Basophils % Absolute Neutrophils Absolute Lymphocytes Absolute Monocytes Absolute Eosinophils Absolute Basophils Sodium Potassium Chloride Carbon Dioxide Anion Gap BUN Creatinine Est GFR ( Amer) Est GFR (Non-Af Amer) Glucose Lactic Acid Calcium Total Bilirubin AST ALT Alkaline Phosphatase Total Protein Albumin Lipase Fluid Tube Number Fluid Glucose Cancelled Fluid Total Protein Cancelled Fluid LDH Cancelled Fluid Amylase Cancelled CSF Volume CSF Appearance CSF Color CSF WBC CSF RBC CSF Glucose CSF Total Protein 07/02/18 07/02/18 07/02/18 12:46 12:46 16:05 WBC RBC Hgb Hct MCV MCH MCHC RDW Plt Count Seg Neutrophils % Lymphocytes % Monocytes % Eosinophils % Basophils % Absolute Neutrophils Absolute Lymphocytes Absolute Monocytes Absolute Eosinophils Absolute Basophils Sodium 152.0 H Potassium 3.7 Chloride 120 H Carbon Dioxide 19 L Anion Gap 13 BUN 59 H Creatinine 1.62 H Est GFR ( Amer) 51 L Est GFR (Non-Af Amer) 42 L Glucose 235 H Lactic Acid Calcium 8.0 L Total Bilirubin AST ALT Alkaline Phosphatase Total Protein Albumin Lipase Fluid Tube Number 3 Fluid Glucose Fluid Total Protein Fluid LDH Fluid Amylase CSF Volume 8.0 CSF Appearance CLEAR CSF Color COLORLESS CSF WBC 2 CSF RBC 37 CSF Glucose 177 H CSF Total Protein 67 H 07/02/18 07/02/18 07/03/18 22:00 22:00 03:56 WBC 16.4 H RBC 3.68 L Hgb 9.4 L Hct 28.4 L MCV 77 L MCH 25.5 L MCHC 32.9 RDW 18.4 H Plt Count 177 Seg Neutrophils % Not Reportable Lymphocytes % Not Reportable Monocytes % Not Reportable Eosinophils % Not Reportable Basophils % Not Reportable Absolute Neutrophils Not Reportable Absolute Lymphocytes Not Reportable Absolute Monocytes Not Reportable Absolute Eosinophils Not Reportable Absolute Basophils Not Reportable Sodium 149.9 H Potassium 3.7 Chloride 119 H Carbon Dioxide 19 L Anion Gap 12 BUN 55 H Creatinine 1.59 H Est GFR ( Amer) 52 L Est GFR (Non-Af Amer) 43 L Glucose 231 H Lactic Acid 2.1 Calcium 7.8 L Total Bilirubin AST ALT Alkaline Phosphatase Total Protein Albumin Lipase Fluid Tube Number Fluid Glucose Fluid Total Protein Fluid LDH Fluid Amylase CSF Volume CSF Appearance CSF Color CSF WBC CSF RBC CSF Glucose CSF Total Protein 07/03/18 07/03/18 03:56 08:45 WBC RBC Hgb Hct MCV MCH MCHC RDW Plt Count Seg Neutrophils % Lymphocytes % Monocytes % Eosinophils % Basophils % Absolute Neutrophils Absolute Lymphocytes Absolute Monocytes Absolute Eosinophils Absolute Basophils Sodium 149.4 H 148.7 H Potassium 3.6 3.8 Chloride 119 H 117 H Carbon Dioxide 19 L 18 L Anion Gap 11 14 BUN 55 H 51 H Creatinine 1.40 H 1.48 H Est GFR ( Amer) > 60 56 L Est GFR (Non-Af Amer) 50 L 47 L Glucose 223 H 245 H Lactic Acid Calcium 7.8 L 7.7 L Total Bilirubin 0.5 AST 92 H ALT 25 Alkaline Phosphatase 299 H Total Protein 5.1 L Albumin 2.3 L Lipase 239.6 Fluid Tube Number Fluid Glucose Fluid Total Protein Fluid LDH Fluid Amylase CSF Volume CSF Appearance CSF Color CSF WBC CSF RBC CSF Glucose CSF Total Protein 07/01/18 07/01/18 07/02/18 03:54 03:54 16:05 Creatine Kinase 617 H 367 H NT-Pro-B Natriuret Pep 9380 H 07/03/18 07/03/18 08:45 08:45 Creatine Kinase 291 H NT-Pro-B Natriuret Pep 8430 H Impressions: Abdomen/Pelvis CT 06/30/18 00:00 IMPRESSION: Fluid overload with bilateral moderate pleural effusions and small amount of ascites. Bibasilar consolidation atelectasis versus pneumonia Head CT 06/30/18 10:00 IMPRESSION: No acute intracranial pathology. No noncontrast CT findings to explain symptoms. MRI may be used to more sensitively evaluate for acute diffusion restricting infarction if suspected. EVIDENCE OF ACUTE STROKE: NO. Head MRI 07/01/18 14:54 IMPRESSION: Mild involutional changes of aging with no acute intracranial imaging findings on this slightly limited study. EVIDENCE OF ACUTE STROKE: NO. Guidance Fluoroscopy 07/02/18 00:00 IMPRESSION: Lumbar puncture under fluoroscopy. No immediate complication. Lumbar Puncture 07/02/18 10:40 IMPRESSION: Lumbar puncture under fluoroscopy. No immediate complication. Assessment & Plan - Diagnosis (1) Altered mental status Is this a current diagnosis for this admission?: Yes Plan: Improved today; patient is A&Ox3 with initially clear speech, and improved strength. Facial droop appears to have resolved. Multifactorial; secondary to metabolic encephalopathy due to severe dehydration resulting in acute renal failure, electrolyte derangements, and likely accumulation of gabapentin. Head CT is benign. Ammonia normal. UDS and serum EtOH are negative. WBC trended up slightly up, though remains afebrile and without evidence of infectious process. Blood and urine cultures negative at 2 days. ABG revealed mixed respiratory and metabolic alkalosis. Noncontrasted head MRI demonstrated mild involutional changes of aging with no acute intracranial findings. Negative for CVA. CSF Gram stain is negative, no growth at 1 day The patient is admitted to the medical floor on continuous cardiac telemetry. Continue IVF. Lumbar puncture completed yesterday; initial evaluation is reassuring with normal opening pressure and mildly elevated protein and glucose which is attributed to his hyperglycemia. Continue empiric IV vancomycin and Rocephin. We will continue to evaluate for infectious process with thoracentesis which is scheduled for today. Oncology has been consulted; appreciate their assistance. Failed bedside swallow eval; now in n.p.o. status. Fall and aspiration precautions. I spoke with the patient's daughter today who requests aggressive workup and interventions; patient remains FULL CODE. (2) Acute on chronic kidney failure Qualifiers: Chronic kidney disease stage: stage 3 (moderate) Is this a current diagnosis for this admission?: Yes Plan: Resolved; patient has returned to his baseline. Current creatinine 1.[address] Whitt's note from his previous admission, the patient's baseline creatinine is 1.6. At time of discharge 06/24/2018 his creatinine had returned to baseline with a BUN of 39. Sodium is slightly elevated at 148.7. Fortunately, potassium remains normal at 3.8. Noncontrasted abdominal and pelvic CT is negative for hydronephrosis or post obstruction related to the patient's prostate cancer. Continue IVF. Nursing is asked to monitor closely for evidence of fluid volume overload due to the patient's underlying heart failure. We will avoid nephrotoxic medications as able. Pharmacy to dose vancomycin. Steve catheter for strict I'&O's. Daily chemistries. (3) Hypernatremia Is this a current diagnosis for this admission?: Yes Plan: Continues to improve with IV fluids. 147.7--> 151.7--> 152.8--> 150.8--> 148.7 During the patient's previous admission he was actually hyponatremic. Evaluation at that time was unclear whether or not the patient had SIADH or if low sodium was a result of polydipsia. He received appropriate IV fluids, was educated on dietary and fluid intake at time of discharge. Continue D5W at 100 ml/hr Monitor with serial chemistries. (4) Diabetes Qualifiers: Diabetes mellitus type: type 2 Chronic kidney disease stage: stage 3 ( moderate) Is this a current diagnosis for this admission?: Yes Plan: A1c 6.7% Accu-Cheks every 6 hours with Humalog for sliding scale coverage. Hypoglycemia protocol in place. (5) New onset atrial fibrillation Is this a current diagnosis for this admission?: Yes Plan: EKG demonstrates atrial fibrillation with a rate in the 50s. Rhythm strip from previous admission this month demonstrates normal sinus rhythm. TSH is normal. Echocardiogram is pending. Possibly related to electrolyte derangements, acute respiratory issue/hypoxia ( lung metastasis, bibasilar consolidations, consideration of PE -unable to rule out at this time). Will start daily aspirin therapy. Metoprolol 12.5 mg every 12 hours; holding parameters for bradycardia. Discussed with Dr. Mckeon; concern for bleeding with full dose anticoagulation. We will continue DVT prophylaxis heparin only at this time. Consider cardiology consultation. (6) Rhabdomyolysis Qualifiers: Rhabdomyolysis type: non-traumatic Qualified Code(s): M62.82 - Rhabdomyolysis Is this a current diagnosis for this admission?: Yes Plan: Improved. Secondary to poor p.o. intake resulting in dehydration and bedbound status. CK is elevated to 817--> 617--> 291 IV fluid rehydration. Every 2 turns; once altered mental status is improved enough to assure patient safety, increase mobility. (7) Anemia, chronic disease Is this a current diagnosis for this admission?: Yes Plan: Stable. Anemia of chronic disease related to chronic kidney disease stage III, prostate cancer with bony metastasis, and iron deficiency related to poor nutrition. We will place patient on multivitamin with iron. Registered dietitian is consulted. We will monitor daily CBC and transfuse as necessary. (8) Congestive heart failure Is this a current diagnosis for this admission?: Yes Plan: Patient with a history of CHF. Previous echocardiogram is from February 2017 which demonstrated an LVEF greater than 65% with mild pulmonary hypertension. Unable to assess diastolic dysfunction at that time due to study quality. ProBNP up slightly with IVF; 8400--> 9300 (up from 597 last year). Imaging (chest x-ray and abdominal/pelvic CT) suggestive of fluid volume overload with moderate bilateral pleural effusions and small amount of ascites. However, on exam the patient remains dehydrated (improved). Continue IV fluid rehydration; nursing is advised of concern for potential for fluid volume overload and asked to monitor closely. Daily weights, Steve catheter for strict I'&O's. Continuing amlodipine, metoprolol (w/ holding parameters), and daily aspirin. Holding diuretics secondary to dehydration and acute renal failure. Echocardiogram is pending. Consider cardiology consultation. (9) Dehydration Is this a current diagnosis for this admission?: Yes Plan: Improved. Continue IV fluids. Remaining plan as above. (10) Leukocytosis Qualifiers: Leukocytosis type: unspecified Qualified Code(s): D72.829 - Elevated white blood cell count, unspecified Is this a current diagnosis for this admission?: Yes Plan: WBC 16.7--> 18.8--> 18.3 --> 16.4. At time of discharge on 06/24/18, WBCs were elevated to 16.9. Currently afebrile; no evidence for infectious process. Urinalysis is negative. Chest x-ray demonstrates bibasilar consolidation; atelectasis versus pneumonia. Repeat Chest x-ray slightly worsened. Blood and urine cultures are negative at 72 hours. Initial CSF evaluation is reassuring; Gram stain and C&S negative at 1 day. During previous admission, patient was treated for pneumonia. He was discharged on p.o. Levaquin and reportedly completed his course of therapy. Imaging is questionable for pneumonia, however, atelectasis is just is possible. No rhonchi or crackles on exam; diminished throughout, absent right base. Thoracentesis planned for today. Have empirically started IV vancomycin and rocephin; will adjust as cultures result. (11) Abnormal LFTs Is this a current diagnosis for this admission?: Yes Plan: Trending down. Patient with elevated LFTs; increased from previous admission. Total Bili 0.5, Direct Bili 0.4, AST 92, ALT 25, Alk Phos 299 Ammonia <8.7 Albumin 2.3 UDS and serum alcohol are negative Noncontrasted CT of the abdomen and pelvis is an unremarkable liver today. Contrasted abdominal CT (03/2018) also showed a normal liver size without masses and no dilated ducts. Hepatitis panel is pending. Mycoplasma IgG/IgM pending. Echocardiogram is pending. (12) Pleural effusion Is this a current diagnosis for this admission?: Yes Plan: Bilateral, moderate, pleural effusions noted on CT ABD/Pelvis. Diminished bibasilar lung sounds R>L. Unclear etiology; possibly related to infectious process (recently treated for pneumonia), cancer (known lung metastasis), CHF (proBNP is elevated, echocardiogram pending), and liver derangements (LFTs trending down). Mycoplasma pneumonia IgG and IgM pending. Cultures and antibiotics as above. Planning for thoracentesis; on schedule for today. Supplemental oxygen as needed to maintain oxygen saturations >90%. - Time Time Spent with patient: 25-34 minutes Medications reviewed and adjusted accordingly: Yes Anticipated discharge: SNF
--- NOTE | 2018-07-03 13:09 | XCELERA REPORT ---
[address] [address] Transthoracic Echocardiogram Report Name: HARMONY RODRIGUEZ Age: 72 yrs Gender: Male : 1945 Patient Status: Inpatient Patient Location: [address] [place] [address] Study Date: 06/30/2018 06:19 PM Height: 72 in Weight: 172 lb BSA: 2.0 m2 Procedure: A two-dimensional transthoracic echocardiogram with color flow and Doppler was performed. Study Quality: Fair. Reason For Study: CHF exacerbation History: CHF. Ordering Physician: JONI PALMA Performed By: Ana María Richard Interpretation Summary The left ventricle is normal in size. There is normal left ventricular wall thickness. LV EF is 65% Left ventricular systolic function is normal. The left ventricular wall motion is normal. There is no thrombus. The right ventricle is not well visualized secondary to technical limitations Probably mildly dilated RV with normal systolic function. The right atrium is borderline dilated. The left and right artia are mildly dilated There is no evidence of mitral valve prolapse. There is no mitral valve stenosis. There is a severe amount of mitral regurgitation There is no aortic valvular vegetation. There is no LVOT obstruction. Visually no Aortic stenosis. There is a trace to mild amount of aortic regurgitation There is no tricuspid stenosis. There is a moderate to severe amount of tricuspid regurgitation There is servere pulmonary hypertension by echo RVSp is 68 n to 73 mm of Hg , with RA mean of 15 to20. The aortic root is normal size. The inferior vena cava appeared dilated and decreased < 50% with respiration (RAP 15-20 mmHg) There is no pericardial effusion. MMode/2D Measurements & Calculations RVDd: 2.9 cm LVIDd: 5.0 cm FS: 41.9 % Ao root diam: 3.1 cm IVSd: 1.2 cm LVIDs: 2.9 cm EDV(Teich): 116.2 ml Ao root area: 7.3 cm2 LVPWd: 1.1 cm ESV(Teich): 31.7 ml LA dimension: 4.3 cm EF(Teich): 72.7 % LVOT diam: 2.0 cm LVOT area: 3.0 cm2 Doppler Measurements & Calculations MV E max simona: MV P1/2t max simona: Ao V2 max: LV V1 max P.1 cm/sec 223.7 cm/sec 228.0 cm/sec 11.3 mmHg MV P1/2t: 64.6 msec Ao max PG: LV V1 mean PG: MVA(P1/2t): 3.4 cm2 20.8 mmHg 6.1 mmHg MV dec slope: Ao V2 mean: LV V1 max: 151.4 cm/sec 168.2 cm/sec 1015 cm/sec2 Ao mean PG: LV V1 mean: MV dec time: 0.26 sec 10.9 mmHg 111.6 cm/sec Ao V2 VTI: 43.2 cmLV V1 VTI: 32.2 cm MILE(I,D): 2.3 cm2 MILE(V,D): 2.2 cm2 SV(LVOT): 97.9 ml PA V2 max: TR max simona: MV P1/2t-pr_phl: 167.0 cm/sec 360.5 cm/sec 64.6 msec PA max P.1 mmHg TR max P.0 mmHg Left Ventricle The left ventricle is normal in size. There is normal left ventricular wall thickness. LV EF is 65%. Left ventricular systolic function is normal. LV diastolic function could not be adequately assessed due to atrial fibrilation. The left ventricular wall motion is normal. There is no thrombus. Right Ventricle The right ventricle is not well visualized secondary to technical limitations. Probably mildly dilated RV with normal systolic function. Atria The right atrium is borderline dilated. The left and right artia are mildly dilated. Mitral Valve There is mild mitral leaflet calcification. There is no evidence of mitral valve prolapse. There is no vegetation seen on the mitral valve. There is no mitral valve stenosis. There is a severe amount of mitral regurgitation. Aortic Valve There is no aortic valvular vegetation. There is no LVOT obstruction. Visually no Aortic stenosis. There is a trace to mild amount of aortic regurgitation. Tricuspid Valve There is no tricuspid stenosis. There is a moderate to severe amount of tricuspid regurgitation. There is servere pulmonary hypertension by echo. RVSp is 68 n to 73 mm of Hg , with RA mean of 15 to20. Pulmonic Valve There is no pulmonic valvular stenosis. There is no pulmonic valvular regurgitation. Great Vessels The aortic root is normal size. The inferior vena cava appeared dilated and decreased < 50% with respiration (RAP 15-20 mmHg). Effusions There is no pericardial effusion. : JONI PALMA > Nancy Haynes
--- NOTE | 2018-07-03 15:06 | PDOC PROGRESS REPORT ---
Subjective Progress Note for:: 07/03/18 Subjective:: Patient is able to speak a few words and nod head appropriately. States he is feeling pretty good today. No new complaints. Reason For Visit: ALTERED MENTAL STATUS,METABOLIC ENCEPHALOPATHY Physical Exam Vital Signs: Temp Pulse Resp BP Pulse Ox 98.3 F 66 16 138/47 H 97 07/03/18 11:00 07/03/18 11:00 07/03/18 11:00 07/03/18 11:00 07/03/18 11:00 Intake & Output 07/02/18 07/03/18 07/04/18 06:59 06:59 06:59 Intake Total 3350 2292 Output Total 1700 1425 Balance 1650 867 Weight 72 kg 81.5 kg General appearance: PRESENT: no acute distress, well-developed, well-nourished Head exam: PRESENT: normocephalic Mouth exam: PRESENT: dry mucosa Respiratory exam: PRESENT: clear to auscultation yuliya, unlabored Cardiovascular exam: PRESENT: bradycardia, irregular rhythm GI/Abdominal exam: PRESENT: soft. ABSENT: tenderness Extremities exam: PRESENT: +1 edema, other - TEDs in place Neurological exam: PRESENT: other - Sleepy. Not able to stay awake long enough to have a full conversation. Unable to tell if patient is fully oriented. Results Laboratory Results: 07/03/18 03:56 07/03/18 08:45 07/02/18 07/02/18 07/02/18 16:05 22:00 22:00 WBC RBC Hgb Hct MCV MCH MCHC RDW Plt Count Seg Neutrophils % Lymphocytes % Monocytes % Eosinophils % Basophils % Absolute Neutrophils Absolute Lymphocytes Absolute Monocytes Absolute Eosinophils Absolute Basophils Sodium 152.0 H 149.9 H Potassium 3.7 3.7 Chloride 120 H 119 H Carbon Dioxide 19 L 19 L Anion Gap 13 12 BUN 59 H 55 H Creatinine 1.62 H 1.59 H Est GFR ( Amer) 51 L 52 L Est GFR (Non-Af Amer) 42 L 43 L Glucose 235 H 231 H Lactic Acid 2.1 Calcium 8.0 L 7.8 L Total Bilirubin AST ALT Alkaline Phosphatase Total Protein Albumin Lipase 07/03/18 07/03/18 07/03/18 03:56 03:56 08:45 WBC 16.4 H RBC 3.68 L Hgb 9.4 L Hct 28.4 L MCV 77 L MCH 25.5 L MCHC 32.9 RDW 18.4 H Plt Count 177 Seg Neutrophils % Not Reportable Lymphocytes % Not Reportable Monocytes % Not Reportable Eosinophils % Not Reportable Basophils % Not Reportable Absolute Neutrophils Not Reportable Absolute Lymphocytes Not Reportable Absolute Monocytes Not Reportable Absolute Eosinophils Not Reportable Absolute Basophils Not Reportable Sodium 149.4 H 148.7 H Potassium 3.6 3.8 Chloride 119 H 117 H Carbon Dioxide 19 L 18 L Anion Gap 11 14 BUN 55 H 51 H Creatinine 1.40 H 1.48 H Est GFR ( Amer) > 60 56 L Est GFR (Non-Af Amer) 50 L 47 L Glucose 223 H 245 H Lactic Acid Calcium 7.8 L 7.7 L Total Bilirubin 0.5 AST 92 H ALT 25 Alkaline Phosphatase 299 H Total Protein 5.1 L Albumin 2.3 L Lipase 239.6 07/01/18 07/01/18 07/02/18 03:54 03:54 16:05 Creatine Kinase 617 H 367 H NT-Pro-B Natriuret Pep 9380 H 07/03/18 07/03/18 08:45 08:45 Creatine Kinase 291 H NT-Pro-B Natriuret Pep 8430 H Impressions: Abdomen/Pelvis CT 06/30/18 00:00 IMPRESSION: Fluid overload with bilateral moderate pleural effusions and small amount of ascites. Bibasilar consolidation atelectasis versus pneumonia Head CT 06/30/18 10:00 IMPRESSION: No acute intracranial pathology. No noncontrast CT findings to explain symptoms. MRI may be used to more sensitively evaluate for acute diffusion restricting infarction if suspected. EVIDENCE OF ACUTE STROKE: NO. Head MRI 07/01/18 14:54 IMPRESSION: Mild involutional changes of aging with no acute intracranial imaging findings on this slightly limited study. EVIDENCE OF ACUTE STROKE: NO. Guidance Fluoroscopy 07/02/18 00:00 IMPRESSION: Lumbar puncture under fluoroscopy. No immediate complication. Lumbar Puncture 07/02/18 10:40 IMPRESSION: Lumbar puncture under fluoroscopy. No immediate complication. Assessment & Plan - Diagnosis (1) Prostate cancer Is this a current diagnosis for this admission?: Yes (2) Altered mental status Is this a current diagnosis for this admission?: Yes Plan: A bit improved, but still not to baseline. No obvious bleeding, masses, or infectious etiology. Remains hypoxic. I suspect he is not able to perfuse his brain fully. (3) New onset atrial fibrillation Is this a current diagnosis for this admission?: Yes Plan: Await ECHO. He remains bradycardic. Await Cardiology recommendations but family has said that pacemaker has been recommended in the past. His renal function has improves and no signs of bleeding. Therefore, no contraindication to starting blood thinners for the Afib at this point. (4) CKD (chronic kidney disease) stage 3, GFR 30-59 ml/min Is this a current diagnosis for this admission?: Yes Plan: Improved with fluids. - Plan Summary Plan Summary: Will continue to follow. Please call with questions. Patient was discussed with Joann See.
--- NOTE | 2018-07-03 16:34 | RADIOLOGY REPORT (SQ) ---
EXAM DESCRIPTION: U/S THORACENTESIS WITH IMAGING COMPLETED DATE/TIME: 07/03/2018 4:13 pm REASON FOR STUDY: Pleural effusion COMPARISON: Chest x-ray dated 07/01/2018. LIMITATIONS: None. PROCEDURE: Procedure, risks, benefit, and alternative explained to patient who then gave written con sent. The posterior right chest wall was marked using ultrasound guidance. A time-out was called fo r correct marking verification. Chest prepped and draped using sterile technique. Local anesthesia a chieved using 10 ml of 1% lidocaine injection. A 6fr Safe-T- Centesis set was introduced into the [facility] pleural space. Fluid was aspirated. The catheter was removed and the entry site was covered wit h sterile bandage. No immediate complications noted. Images acquired during the procedure were stored on PACS. FINDINGS: ENTRY SITE: posterior right chest. FLUID VOLUME: 800 mL FLUID ANALYSIS: Straw-colored OTHER: Fluid sent to the lab for testing. IMPRESSION: SUCCESSFUL THORACENTESIS USING ULTRASOUND GUIDANCE. COMMENT: Patient medication list reviewed: Yes- Quality ID# [id number]:Eligible professional attests to doc umenting in the medical record they obtained, updated, or reviewed the patient's current medications. TECHNICAL DOCUMENTATION: JOB ID: [id number] [employer]- All Rights Reserved Reading location - IP/workstation name: [email or web address]
--- NOTE | 2018-07-03 16:45 | RADIOLOGY REPORT (SQ) ---
EXAM DESCRIPTION: CHEST SINGLE VIEW COMPLETED DATE/TIME: 07/03/2018 4:31 pm REASON FOR STUDY: POST THORA PLEURAL EFFUSION DRAINED ON RT COMPARISON: Chest x-ray 07/01/2018. EXAM PARAMETERS: NUMBER OF VIEWS: One view. TECHNIQUE: Single frontal portable supine radiographic view of the chest acquired on 07/03/2018 at 16 :21 hours. RADIATION DOSE: NA LIMITATIONS: None. FINDINGS: LUNGS AND PLEURA: Interval decrease in the moderate right-sided pleural effusion. Persist ent small left-sided pleural effusion. Airspace opacities are seen at the bilateral lung bases. No obvious pneumothorax on this supine view. MEDIASTINUM AND HILAR STRUCTURES: No masses. Contour normal. HEART AND VASCULAR STRUCTURES: Heart normal in size. Mild vascular congestion. BONES: No acute findings. HARDWARE: None in the chest. IMPRESSION: 1. Interval decrease in the moderate right-sided pleural effusion. No obvious pneumot horax on this supine view. 2. Persistent small left-sided pleural effusion. 3. Bibasilar airspace opacities, may be secondary to atelectasis or pneumonia. 4. Mild vascular congestion. TECHNICAL DOCUMENTATION: JOB ID: [id number] [employer]- All Rights Reserved Reading location - IP/workstation name: [email or web address]
[2018-07-03 18:30] LABS: HEPATITIS C VIRUS ANTIBODY <0.1 s/co ratio (0.0-0.9)
[2018-07-03] MEDS: VANCOMYCIN HCL 1,000 MG in DEXTROSE 5%-WATER 250 ML IV SCH (18:37)
[2018-07-03] MEDS: MULTIVITAMINS W-IRON TABLET, CHEWABLE PO SCH (18:52)
[2018-07-03] MEDS: METOPROLOL TARTRATE 25 MG TABLET PO SCH ×2 (18:52→21:41)
[2018-07-03] MEDS: DOCUSATE SODIUM 100 MG CAPSULE PO SCH (18:52)
[2018-07-03] MEDS: ASPIRIN 81 MG TABLET, CHEWABLE PO SCH (18:52)
[2018-07-03] MEDS: AMLODIPINE BESYLATE 10 MG TABLET PO SCH (18:53)
[2018-07-03 19:13] LABS: FLUID APPEARANCE CLEAR; FLUID COLOR LIGHT YELLOW; FLUID SOURCE LUNG; FLUID TYPE PLEURAL; FLUID VISCOSITY LIQUID
--- NOTE | 2018-07-03 21:05 | RADIOLOGY REPORT (SQ) ---
EXAM DESCRIPTION: CHEST SINGLE VIEW COMPLETED DATE/TIME: 07/03/2018 6:35 pm REASON FOR STUDY: POST THORA PLEURAL EFFUSION DRAINED ON RT COMPARISON: 07/03/2018 EXAM PARAMETERS: NUMBER OF VIEWS: One view. TECHNIQUE: Single frontal radiographic view of the chest acquired. RADIATION DOSE: NA LIMITATIONS: Patient rotation. FINDINGS: LUNGS AND PLEURA: Stable pulmonary exam again demonstrating small bilateral pleural effusi ons. No new focal consolidation. No pneumothorax. MEDIASTINUM AND HILAR STRUCTURES: No masses. Contour normal. HEART AND VASCULAR STRUCTURES: Heart normal in size. Normal vasculature. BONES: No acute findings. HARDWARE: None in the chest. OTHER: No other significant finding. IMPRESSION: Stable pulmonary exam demonstrating small bilateral pleural effusions. TECHNICAL DOCUMENTATION: JOB ID: [id number] [employer]- All Rights Reserved Reading location - IP/workstation name: [email or web address]
[2018-07-03] MEDS: TAMSULOSIN HCL 0.4 MG CAP.SR.24H PO SCH (21:41)
[2018-07-03] MEDS: FAMOTIDINE INJ/PF 20 MG/2 ML SDV IV SCH (22:14)
[2018-07-04] MEDS: INSULIN LISPRO 100 UNIT/ML 3 ML VIAL SUBCUT PRN ×2 (02:37→06:43)
[2018-07-04 04:42] LABS: HEMATOCRIT 28.2 % (37.9-51.0); HEMOGLOBIN 9.2 g/dL (13.5-17.0); MEAN CORPUSCULAR HEMOGLOBIN 25.5 pg (27.0-33.4); MEAN CORPUSCULAR HGB CONC 32.7 g/dL (32.0-36.0); MEAN CORPUSCULAR VOLUME 78 fl (80-97); PLATELET COUNT 141 10^3/uL (150-450); RED BLOOD COUNT 3.62 10^6/uL (4.35-5.55); RED CELL DISTRIBUTION WIDTH 18.5 % (11.5-14.0); WHITE BLOOD COUNT 13.7 10^3/uL (4.0-10.5)
[2018-07-04 05:03] LABS: ANION GAP 12 (5-19); BLOOD UREA NITROGEN 49 mg/dL (7-20); CALCIUM 7.6 mg/dL (8.4-10.2); CARBON DIOXIDE 19 mmol/L (22-30); CHLORIDE 115 mmol/L (98-107); GLUCOSE 251 mg/dL (75-110); POTASSIUM 3.7 mmol/L (3.6-5.0); SODIUM 146.3 mmol/L (137-145)
[2018-07-04] MEDS: DEXTROSE 5%-WATER 1000 ML 1,000 ML IV PRN (06:42)
[2018-07-04] MEDS: HEPARIN SOD (PORCINE) 5,000 UNIT/ML 1 ML SYRINGE SUBCUT SCH ×3 (06:42→23:12)
[2018-07-04] MEDS ORDERED: DEXTROSE 5%-WATER 1000 ML 1,000 ML IV PRN (07:48)
[2018-07-04] MEDS: MULTIVITAMINS W-IRON TABLET, CHEWABLE PO SCH (09:31)
[2018-07-04] MEDS: METOPROLOL TARTRATE 25 MG TABLET PO SCH ×2 (09:31→23:12)
[2018-07-04] MEDS: DOCUSATE SODIUM 100 MG CAPSULE PO SCH (09:31)
[2018-07-04] MEDS: AMLODIPINE BESYLATE 10 MG TABLET PO SCH (09:31)
[2018-07-04] MEDS: ASPIRIN 81 MG TABLET, CHEWABLE PO SCH (09:32)
[2018-07-04] MEDS: CEFTRIAXONE SODIUM 1,000 MG in DEXTROSE 5%-WATER 50 ML IV SCH (09:34)
--- NOTE | 2018-07-04 14:07 | PDOC PROGRESS REPORT ---
Subjective Progress Note for:: 07/04/18 Subjective:: The patient is a 72 year old male significant for prostate cancer with lung and bone metastasis, type 2 diabetes mellitus, stage III kidney disease, CHF, and hypertension who was admitted on 06/30/2018 for altered mental status and acute renal failure. The patient was seen on morning rounds and again briefly this afternoon. He was found resting in bed comfortably on supplemental oxygen at 2 L/min. He was arousable and oriented to person place and time. He was able to speak clearly for 2-3 sentences and then began having slurred and incomprehensible speech. He does follow commands with improved strength from yesterday; now able to lift arms off of the bed. Facial droop is no longer present. ROS is limited secondary to mental status. No concerns per nursing; reports that he is on the schedule for his thoracentesis today. Reason For Visit: ALTERED MENTAL STATUS,METABOLIC ENCEPHALOPATHY Physical Exam Vital Signs: Temp Pulse Resp BP Pulse Ox 98.1 F 52 L 17 138/50 H 98 07/04/18 07:51 07/04/18 07:51 07/04/18 07:51 07/04/18 07:51 07/04/18 07:51 Intake & Output 07/03/18 07/04/18 07/05/18 06:59 06:59 06:59 Intake Total 2292 2300 Output Total 1425 860 Balance 867 1440 Weight 81.5 kg 77.7 kg General appearance: PRESENT: no acute distress, thin, well-developed, well- nourished Head exam: PRESENT: atraumatic, normocephalic Eye exam: PRESENT: conjunctiva pink, EOMI, PERRLA. ABSENT: scleral icterus Ear exam: PRESENT: normal external ear exam Mouth exam: PRESENT: dry mucosa, tongue midline Neck exam: ABSENT: carotid bruit, JVD, lymphadenopathy, thyromegaly Respiratory exam: PRESENT: decreased breath sounds - Bibasilar; significant improvement from yesterday, symmetrical, unlabored. ABSENT: rales, rhonchi, wheezes Cardiovascular exam: PRESENT: bradycardia, irregular rhythm, +S1, +S2. ABSENT: diastolic murmur, rubs, systolic murmur Pulses: PRESENT: normal dorsalis pedis pul Vascular exam: PRESENT: normal capillary refill GI/Abdominal exam: PRESENT: normal bowel sounds, soft. ABSENT: distended, guarding, mass, organolmegaly, rebound, tenderness Rectal exam: PRESENT: deferred Extremities exam: ABSENT: calf tenderness, clubbing, pedal edema Neurological exam: PRESENT: oriented to person, oriented to place, oriented to time, CN II-XII grossly intact, other - Arousable, initially speech is clear however become slurred as the patient fatigues. Follows commands; automotive diagnostic technician strength equal 4/5, dorsiflexion equal 3/5. Now able to lift arms off the bed. Continues to improve.. ABSENT: motor sensory deficit Psychiatric exam: PRESENT: appropriate affect, normal mood. ABSENT: homicidal ideation, suicidal ideation Skin exam: PRESENT: dry, intact, warm. ABSENT: cyanosis, rash Results Laboratory Results: 07/04/18 03:53 07/04/18 03:53 07/03/18 07/04/18 07/04/18 16:15 03:53 03:53 WBC 13.7 H RBC 3.62 L Hgb 9.2 L Hct 28.2 L MCV 78 L MCH 25.5 L MCHC 32.7 RDW 18.5 H Plt Count 141 L Sodium 146.3 H Potassium 3.7 Chloride 115 H Carbon Dioxide 19 L Anion Gap 12 BUN 49 H Creatinine 1.44 H Est GFR ( Amer) 58 L Est GFR (Non-Af Amer) 48 L Glucose 251 H Calcium 7.6 L Fluid Type PLEURAL Fluid Source LUNG Fluid Color LIGHT YELLOW Fluid Appearance CLEAR Fluid Viscosity LIQUID Fluid WBC 204 Fluid RBC 385 07/01/18 07/01/18 07/02/18 03:54 03:54 16:05 Creatine Kinase 617 H 367 H NT-Pro-B Natriuret Pep 9380 H 07/03/18 07/03/18 07/04/18 08:45 08:45 03:53 Creatine Kinase 291 H NT-Pro-B Natriuret Pep 8430 H 9560 H Impressions: Abdomen/Pelvis CT 06/30/18 00:00 IMPRESSION: Fluid overload with bilateral moderate pleural effusions and small amount of ascites. Bibasilar consolidation atelectasis versus pneumonia Head CT 06/30/18 10:00 IMPRESSION: No acute intracranial pathology. No noncontrast CT findings to explain symptoms. MRI may be used to more sensitively evaluate for acute diffusion restricting infarction if suspected. EVIDENCE OF ACUTE STROKE: NO. Head MRI 07/01/18 14:54 IMPRESSION: Mild involutional changes of aging with no acute intracranial imaging findings on this slightly limited study. EVIDENCE OF ACUTE STROKE: NO. Guidance Fluoroscopy 07/02/18 00:00 IMPRESSION: Lumbar puncture under fluoroscopy. No immediate complication. Lumbar Puncture 07/02/18 10:40 IMPRESSION: Lumbar puncture under fluoroscopy. No immediate complication. Thoracentesis Ultrasound 07/03/18 10:19 IMPRESSION: SUCCESSFUL THORACENTESIS USING ULTRASOUND GUIDANCE. Chest X-Ray 07/03/18 18:00 IMPRESSION: Stable pulmonary exam demonstrating small bilateral pleural effusions. Assessment & Plan - Diagnosis (1) Altered mental status Is this a current diagnosis for this admission?: Yes Plan: Gradual improvement; patient is A&Ox3 with initially clear speech, and improved strength. Facial droop appears to have resolved. Multifactorial; secondary to metabolic encephalopathy due to severe dehydration resulting in acute renal failure, electrolyte derangements, and likely accumulation of gabapentin. Head CT is benign. Ammonia normal. UDS and serum EtOH are negative. WBC remains elevated, now trending down. Blood and urine cultures negative at 4 days. ABG revealed mixed respiratory and metabolic alkalosis. Noncontrasted head MRI demonstrated mild involutional changes of aging with no acute intracranial findings. Negative for CVA. CSF Gram stain is negative, no growth at 2 days The patient is admitted to the medical floor on continuous cardiac telemetry. Continue IVF. Lumbar puncture completed; initial evaluation is reassuring with normal opening pressure and mildly elevated protein and glucose which is attributed to his hyperglycemia. Thoracentesis completed; initial evaluation is transudative. Continue empiric IV vancomycin and Rocephin. Oncology has been consulted; appreciate their assistance. Failed bedside swallow eval; now in n.p.o. status. Will ask ST to see again tomorrow; may need to start TF. Fall and aspiration precautions. I spoke with the patient's daughter who requests aggressive workup and interventions; patient remains FULL CODE. (2) Acute on chronic kidney failure Qualifiers: Chronic kidney disease stage: stage 3 (moderate) Is this a current diagnosis for this admission?: Yes Plan: Resolved; patient has returned to his baseline. Current creatinine 1.[address] Whitt's note from his previous admission, the patient's baseline creatinine is 1.6. At time of discharge 06/24/2018 his creatinine had returned to baseline with a BUN of 39. Sodium is slightly elevated at 148.7. Fortunately, potassium remains normal at 3.8. Noncontrasted abdominal and pelvic CT is negative for hydronephrosis or post obstruction related to the patient's prostate cancer. Continue IVF. Nursing is asked to monitor closely for evidence of fluid volume overload due to the patient's underlying heart failure. We will avoid nephrotoxic medications as able. Pharmacy to dose vancomycin. Steve catheter for strict I'&O's. Daily chemistries. (3) Hypernatremia Is this a current diagnosis for this admission?: Yes Plan: Continues to improve with IV fluids. 147.7--> 151.7--> 152.8--> 150.8--> 148.7- -> 146.3 During the patient's previous admission he was actually hyponatremic. Evaluation at that time was unclear whether or not the patient had SIADH or if low sodium was a result of polydipsia. He received appropriate IV fluids, was educated on dietary and fluid intake at time of discharge. Continue D5W at 50 ml/hr Monitor with serial chemistries. (4) Diabetes Qualifiers: Diabetes mellitus type: type 2 Chronic kidney disease stage: stage 3 ( moderate) Is this a current diagnosis for this admission?: Yes Plan: A1c 6.7% Accu-Cheks every 6 hours with Humalog for sliding scale coverage. Hypoglycemia protocol in place. (5) New onset atrial fibrillation Is this a current diagnosis for this admission?: Yes Plan: EKG demonstrates atrial fibrillation with a rate in the 50s. Rhythm strip from previous admission this month demonstrates normal sinus rhythm. TSH is normal. Echocardiogram demonstrated LVEF 65%, severe mitral regurgitation, severe tricuspid regurgitation, and severe pulmonary hypertension. Possibly related to electrolyte derangements, acute respiratory issue/hypoxia ( lung metastasis, bibasilar consolidations, consideration of PE -unable to rule out at this time). Will start daily aspirin therapy. Metoprolol 12.5 mg every 12 hours; holding parameters for bradycardia (patient has not been receiving this medication secondary to n.p.o. status). Will need to discuss risks/benefits of chronic anticoagulation with family. [id number] 4.8% CVA risk. [id number] Score 10.4% of major bleeding risk in elderly. (6) Rhabdomyolysis Qualifiers: Rhabdomyolysis type: non-traumatic Qualified Code(s): M62.82 - Rhabdomyolysis Is this a current diagnosis for this admission?: Yes Plan: Improved. Secondary to poor p.o. intake resulting in dehydration and bedbound status. CK is elevated to 817--> 617--> 291 IV fluid rehydration. Every 2 turns; once altered mental status is improved enough to assure patient safety, increase mobility. (7) Anemia, chronic disease Is this a current diagnosis for this admission?: Yes Plan: Stable. Anemia of chronic disease related to chronic kidney disease stage III, prostate cancer with bony metastasis, and iron deficiency related to poor nutrition. We will place patient on multivitamin with iron. Registered dietitian is consulted. We will monitor daily CBC and transfuse as necessary. (8) Congestive heart failure Is this a current diagnosis for this admission?: Yes Plan: Patient with a history of CHF. Previous echocardiogram is from February 2017 which demonstrated an LVEF greater than 65% with mild pulmonary hypertension. Unable to assess diastolic dysfunction at that time due to study quality. Repeat echocardiogram demonstrates severe mitral regurgitation, severe tricuspid regurgitation, and severe pulmonary hypertension ProBNP up slightly with IVF; 8400--> 9300--> 9560 (up from 597 last year). Imaging (chest x-ray and abdominal/pelvic CT) suggestive of fluid volume overload with moderate bilateral pleural effusions and small amount of ascites. However, on exam the patient remains dehydrated (much improved). Continue IV fluid rehydration; have reduced rate to 50 ml/hr. Nursing is advised of concern for potential for fluid volume overload and asked to monitor closely. Daily weights, Steve catheter for strict I'&O's. Continuing amlodipine, metoprolol (w/ holding parameters), and daily aspirin. Holding diuretics secondary to dehydration and acute renal failure. Discussed with patient's daughter today. She tells me that she was recently informed that the patient has been recommended to have a pacemaker in the past. She is unaware if he has ever been evaluated for valve repair. Will obtain Cardiology consultation. (9) Dehydration Is this a current diagnosis for this admission?: Yes Plan: Improved. Continue IV fluids. Remaining plan as above. (10) Leukocytosis Qualifiers: Leukocytosis type: unspecified Qualified Code(s): D72.829 - Elevated white blood cell count, unspecified Is this a current diagnosis for this admission?: Yes Plan: WBC 16.7--> 18.8--> 18.3 --> 16.4--> 13.7. At time of discharge on 06/24/18, WBCs were elevated to 16.9. Currently afebrile; no evidence for infectious process. Urinalysis is negative. Chest x-ray demonstrates bibasilar consolidation; atelectasis versus pneumonia. Repeat Chest x-ray slightly worsened. Blood and urine cultures are negative at 4 days. Initial CSF evaluation is reassuring; Gram stain and C&S negative at 2 day. Pleural effusion work up pending; Gram stain and C&S negative at 1 days. During previous admission, patient was treated for pneumonia. He was discharged on p.o. Levaquin and reportedly completed his course of therapy. Imaging is questionable for pneumonia, however, atelectasis is just is possible. No rhonchi or crackles on exam; diminished throughout, absent right base. Have empirically started IV vancomycin and rocephin; will adjust as cultures result. (11) Abnormal LFTs Is this a current diagnosis for this admission?: Yes Plan: Trending down. Patient with elevated LFTs; increased from previous admission. Total Bili 0.5, Direct Bili 0.4, AST 92, ALT 25, Alk Phos 299 Ammonia <8.7 Albumin 2.3 UDS and serum alcohol are negative Noncontrasted CT of the abdomen and pelvis is an unremarkable liver today. Contrasted abdominal CT (03/2018) also showed a normal liver size without masses and no dilated ducts. Hepatitis panel is pending. Mycoplasma IgG/IgM pending. Echocardiogram is pending. (12) Pleural effusion Is this a current diagnosis for this admission?: Yes Plan: Bilateral, moderate, pleural effusions noted on CT ABD/Pelvis. Diminished bibasilar lung sounds R>L. Unclear etiology; possibly related to infectious process (recently treated for pneumonia), cancer (known lung metastasis), CHF (proBNP is elevated, LVEF 65%, severe pulmonary htn), and liver derangements (LFTs trending down). Mycoplasma pneumonia IgG and IgM pending. Pleural effusion work up pending; Gram stain and C&S negative at 1 days. Cultures and antibiotics as above. Thoracentesis completed. Initial results are reassuring; appears to be transudative. Fluid glucose, protein, LDH, amylase are all send out and should be available tomorrow. Supplemental oxygen as needed to maintain oxygen saturations >90%. - Time Time Spent with patient: 25-34 minutes Medications reviewed and adjusted accordingly: Yes Anticipated discharge: SNF
--- NOTE | 2018-07-04 15:03 | PDOC PROGRESS REPORT ---
Subjective Progress Note for:: 07/04/18 Subjective:: Patient able to answer few words at a time. States that he feels pretty good today. States that he could eat something today. Family is at bedside. They state that he is doing better. However, still not back to baseline. Not eating or drinking anything yet. Denies any pain. ROS: no nausea. No chest pain. Reason For Visit: ALTERED MENTAL STATUS,METABOLIC ENCEPHALOPATHY Physical Exam Vital Signs: Temp Pulse Resp BP Pulse Ox 98.1 F 64 16 138/50 H 98 07/04/18 07:51 07/04/18 13:59 07/04/18 13:59 07/04/18 07:51 07/04/18 13:59 Intake & Output 07/03/18 07/04/18 07/05/18 06:59 06:59 06:59 Intake Total 2292 2300 50 Output Total 1425 860 Balance 867 1440 50 Weight 81.5 kg 77.7 kg General appearance: PRESENT: no acute distress, well-developed, well-nourished Head exam: PRESENT: normocephalic Respiratory exam: PRESENT: clear to auscultation yuliya, unlabored Cardiovascular exam: PRESENT: bradycardia, irregular rhythm GI/Abdominal exam: PRESENT: soft. ABSENT: tenderness Extremities exam: PRESENT: +1 edema Skin exam: PRESENT: normal color Results Laboratory Results: 07/04/18 03:53 07/04/18 03:53 07/03/18 07/04/18 07/04/18 16:15 03:53 03:53 WBC 13.7 H RBC 3.62 L Hgb 9.2 L Hct 28.2 L MCV 78 L MCH 25.5 L MCHC 32.7 RDW 18.5 H Plt Count 141 L Sodium 146.3 H Potassium 3.7 Chloride 115 H Carbon Dioxide 19 L Anion Gap 12 BUN 49 H Creatinine 1.44 H Est GFR ( Amer) 58 L Est GFR (Non-Af Amer) 48 L Glucose 251 H Calcium 7.6 L Fluid Type PLEURAL Fluid Source LUNG Fluid Color LIGHT YELLOW Fluid Appearance CLEAR Fluid Viscosity LIQUID Fluid WBC 204 Fluid RBC 385 07/01/18 07/01/18 07/02/18 03:54 03:54 16:05 Creatine Kinase 617 H 367 H NT-Pro-B Natriuret Pep 9380 H 07/03/18 07/03/18 07/04/18 08:45 08:45 03:53 Creatine Kinase 291 H NT-Pro-B Natriuret Pep 8430 H 9560 H Impressions: Abdomen/Pelvis CT 06/30/18 00:00 IMPRESSION: Fluid overload with bilateral moderate pleural effusions and small amount of ascites. Bibasilar consolidation atelectasis versus pneumonia Head CT 06/30/18 10:00 IMPRESSION: No acute intracranial pathology. No noncontrast CT findings to explain symptoms. MRI may be used to more sensitively evaluate for acute diffusion restricting infarction if suspected. EVIDENCE OF ACUTE STROKE: NO. Head MRI 07/01/18 14:54 IMPRESSION: Mild involutional changes of aging with no acute intracranial imaging findings on this slightly limited study. EVIDENCE OF ACUTE STROKE: NO. Guidance Fluoroscopy 07/02/18 00:00 IMPRESSION: Lumbar puncture under fluoroscopy. No immediate complication. Lumbar Puncture 07/02/18 10:40 IMPRESSION: Lumbar puncture under fluoroscopy. No immediate complication. Thoracentesis Ultrasound 07/03/18 10:19 IMPRESSION: SUCCESSFUL THORACENTESIS USING ULTRASOUND GUIDANCE. Chest X-Ray 07/03/18 18:00 IMPRESSION: Stable pulmonary exam demonstrating small bilateral pleural effusions. Assessment & Plan - Diagnosis (1) Prostate cancer Is this a current diagnosis for this admission?: Yes Plan: No indication that this has progressed or is the underlying cause of his delerium. (2) Altered mental status Qualifiers: Altered mental status type: delirium Qualified Code(s): R41.0 - Disorientation, unspecified Is this a current diagnosis for this admission?: Yes Plan: Improved, but still significantly altered. No evidence of a metabolic cause. No fever or infectious cause. Await thoracentesis results. ECHO with LVEF 65% , but with severe pulmonary HTN and significant valve problems. I still suspect that this is due to poor perfusion, perhaps due to bradycardia. (3) New onset atrial fibrillation Is this a current diagnosis for this admission?: Yes Plan: Patient is at risk for CVA with the A-fib, but he is also still at risk for active bleeding. Discussed with Joann See. Will hold off on anticoagulation at this point. and she will discuss further with family. (4) CKD (chronic kidney disease) stage 3, GFR 30-59 ml/min Is this a current diagnosis for this admission?: Yes Plan: Much improved with IV fluids. However, he is sitll not eating or drinking enough to sustain himself. He did not do well with swallowing eval previously. Crystal to discuss possible PEG tube with family as well.
[2018-07-04] MEDS: VANCOMYCIN HCL 1,000 MG in DEXTROSE 5%-WATER 250 ML IV SCH (17:35)
[2018-07-04 18:41] LABS: VANCOMYCIN,TROUGH 12.7 ug/mL (5.0-20.0)
[2018-07-04] MEDS: TAMSULOSIN HCL 0.4 MG CAP.SR.24H PO SCH (23:11)
[2018-07-04] MEDS: FAMOTIDINE INJ/PF 20 MG/2 ML SDV IV SCH (23:12)
[2018-07-05] MEDS: HEPARIN SOD (PORCINE) 5,000 UNIT/ML 1 ML SYRINGE SUBCUT SCH ×3 (06:27→22:26)
[2018-07-05 07:38] LABS: TOTAL PROTEIN BODY FLUID 1.6 g/dL (.)
--- NOTE | 2018-07-05 08:19 | PDOC PROGRESS REPORT ---
Subjective Progress Note for:: 07/05/18 Subjective:: Still w significant confusion though nursing notes it is better, I ordered swallow eval this am to see if he does better Reason For Visit: ALTERED MENTAL STATUS,METABOLIC ENCEPHALOPATHY Physical Exam Vital Signs: Temp Pulse Resp BP Pulse Ox 97.9 F 69 17 150/57 H 98 07/05/18 04:00 07/05/18 07:00 07/05/18 04:00 07/05/18 04:00 07/05/18 04:00 Intake & Output 07/04/18 07/05/18 07/06/18 06:59 06:59 06:59 Intake Total 2300 300 Output Total 860 1560 Balance 1440 -1260 Weight 77.7 kg 77.6 kg Results Laboratory Results: 07/04/18 03:53 07/04/18 17:35 07/03/18 07/04/18 16:15 17:35 Creatinine 1.34 H Est GFR ( Amer) > 60 Est GFR (Non-Af Amer) 52 L Fluid Glucose 263 Fluid Total Protein 1.6 Fluid LDH 153 Fluid Amylase 8 07/01/18 07/01/18 07/02/18 03:54 03:54 16:05 Creatine Kinase 617 H 367 H NT-Pro-B Natriuret Pep 9380 H 07/03/18 07/03/18 07/04/18 08:45 08:45 03:53 Creatine Kinase 291 H NT-Pro-B Natriuret Pep 8430 H 9560 H Impressions: Abdomen/Pelvis CT 06/30/18 00:00 IMPRESSION: Fluid overload with bilateral moderate pleural effusions and small amount of ascites. Bibasilar consolidation atelectasis versus pneumonia Head CT 06/30/18 10:00 IMPRESSION: No acute intracranial pathology. No noncontrast CT findings to explain symptoms. MRI may be used to more sensitively evaluate for acute diffusion restricting infarction if suspected. EVIDENCE OF ACUTE STROKE: NO. Head MRI 07/01/18 14:54 IMPRESSION: Mild involutional changes of aging with no acute intracranial imaging findings on this slightly limited study. EVIDENCE OF ACUTE STROKE: NO. Guidance Fluoroscopy 07/02/18 00:00 IMPRESSION: Lumbar puncture under fluoroscopy. No immediate complication. Lumbar Puncture 07/02/18 10:40 IMPRESSION: Lumbar puncture under fluoroscopy. No immediate complication. Thoracentesis Ultrasound 07/03/18 10:19 IMPRESSION: SUCCESSFUL THORACENTESIS USING ULTRASOUND GUIDANCE. Chest X-Ray 07/03/18 18:00 IMPRESSION: Stable pulmonary exam demonstrating small bilateral pleural effusions. Assessment & Plan - Diagnosis (1) Altered mental status Qualifiers: Altered mental status type: delirium Qualified Code(s): R41.0 - Disorientation, unspecified Is this a current diagnosis for this admission?: Yes Plan: Seems 2nd to dementia w/ superimposed delirium, unrelated to prostate ca (2) Difficulty swallowing liquids Is this a current diagnosis for this admission?: Yes Plan: Likely related in part to dementia, swallow re-eval pending (3) Prostate cancer Is this a current diagnosis for this admission?: Yes Plan: Stage IV w/ known bone mets, current presentation probably unrelated to this - Time Disposition: Spoke w/ family over holiday prior to admit, discussed w/ daughter today spent>45 m in discussion
--- NOTE | 2018-07-05 09:10 | PDOC PROGRESS REPORT ---
Subjective Progress Note for:: 07/05/18 Subjective:: The patient appears to be awake but he is having difficulty expressing himself. Reason For Visit: ALTERED MENTAL STATUS,METABOLIC ENCEPHALOPATHY Physical Exam Vital Signs: Temp Pulse Resp BP Pulse Ox 98.0 F 57 L 17 156/55 H 99 07/05/18 07:37 07/05/18 07:37 07/05/18 07:37 07/05/18 07:37 07/05/18 07:37 Intake & Output 07/04/18 07/05/18 07/06/18 06:59 06:59 06:59 Intake Total 2300 300 Output Total 860 1560 Balance 1440 -1260 Weight 77.7 kg 77.6 kg General appearance: PRESENT: mild distress Head exam: PRESENT: atraumatic Eye exam: PRESENT: conjunctival injection Mouth exam: PRESENT: dry mucosa Neck exam: PRESENT: carotid bruit. ABSENT: JVD Respiratory exam: PRESENT: crackles, rhonchi Cardiovascular exam: PRESENT: irregular rhythm, +S1, +S2 GI/Abdominal exam: PRESENT: normal bowel sounds, soft Extremities exam: PRESENT: other Musculoskeletal exam: PRESENT: other Neurological exam: PRESENT: awake Psychiatric exam: PRESENT: anxious Results Laboratory Results: 07/04/18 03:53 07/04/18 17:35 07/03/18 07/04/18 16:15 17:35 Creatinine 1.34 H Est GFR ( Amer) > 60 Est GFR (Non-Af Amer) 52 L Fluid Glucose 263 Fluid Total Protein 1.6 Fluid LDH 153 Fluid Amylase 8 07/01/18 07/01/18 07/02/18 03:54 03:54 16:05 Creatine Kinase 617 H 367 H NT-Pro-B Natriuret Pep 9380 H 07/03/18 07/03/18 07/04/18 08:45 08:45 03:53 Creatine Kinase 291 H NT-Pro-B Natriuret Pep 8430 H 9560 H Impressions: Abdomen/Pelvis CT 06/30/18 00:00 IMPRESSION: Fluid overload with bilateral moderate pleural effusions and small amount of ascites. Bibasilar consolidation atelectasis versus pneumonia Head CT 06/30/18 10:00 IMPRESSION: No acute intracranial pathology. No noncontrast CT findings to explain symptoms. MRI may be used to more sensitively evaluate for acute diffusion restricting infarction if suspected. EVIDENCE OF ACUTE STROKE: NO. Head MRI 07/01/18 14:54 IMPRESSION: Mild involutional changes of aging with no acute intracranial imaging findings on this slightly limited study. EVIDENCE OF ACUTE STROKE: NO. Guidance Fluoroscopy 07/02/18 00:00 IMPRESSION: Lumbar puncture under fluoroscopy. No immediate complication. Lumbar Puncture 07/02/18 10:40 IMPRESSION: Lumbar puncture under fluoroscopy. No immediate complication. Thoracentesis Ultrasound 07/03/18 10:19 IMPRESSION: SUCCESSFUL THORACENTESIS USING ULTRASOUND GUIDANCE. Chest X-Ray 07/03/18 18:00 IMPRESSION: Stable pulmonary exam demonstrating small bilateral pleural effusions. Assessment & Plan - Diagnosis (1) Altered mental status Qualifiers: Altered mental status type: delirium Qualified Code(s): R41.0 - Disorientation, unspecified Is this a current diagnosis for this admission?: Yes Plan: We will check B12 folic acid and RPR. We might need to restart the SSRI which was stopped (2) Dehydration Is this a current diagnosis for this admission?: Yes Plan: Possible cause of hyponatremia. The patient right now is fluid overloaded. Will stop the D5 and start diuretics (3) Hypernatremia Is this a current diagnosis for this admission?: Yes Plan: Start diuretics (4) New onset atrial fibrillation Is this a current diagnosis for this admission?: Yes Plan: We will stop the Lopressor due to significant bradycardia. Awaiting cardiology consultation (5) CKD (chronic kidney disease) stage 3, GFR 30-59 ml/min Is this a current diagnosis for this admission?: Yes (6) Hypertension Qualifiers: Hypertension type: unspecified Qualified Code(s): I10 - Essential (primary ) hypertension Is this a current diagnosis for this admission?: Yes Plan: Continue current treatment (7) Physical deconditioning Is this a current diagnosis for this admission?: Yes Plan: Will need PT OT (8) Prostate cancer Is this a current diagnosis for this admission?: Yes Plan: Stage IV with metastasis.
[2018-07-05] MEDS: MULTIVITAMINS W-IRON TABLET, CHEWABLE PO SCH (10:00)
[2018-07-05] MEDS: DOCUSATE SODIUM 100 MG CAPSULE PO SCH (10:00)
[2018-07-05] MEDS: CEFTRIAXONE SODIUM 1,000 MG in DEXTROSE 5%-WATER 50 ML IV SCH (11:03)
[2018-07-05] MEDS: FUROSEMIDE INJ/PF 40 MG/4 ML SDV IV SCH (11:03)
[2018-07-05] MEDS: AMLODIPINE BESYLATE 10 MG TABLET PO SCH (11:05)
[2018-07-05] MEDS: ASPIRIN 81 MG TABLET, CHEWABLE PO SCH (11:05)
[2018-07-05] MEDS: INSULIN LISPRO 100 UNIT/ML 3 ML VIAL SUBCUT PRN ×2 (12:02→17:53)
[2018-07-05] MEDS: TAMSULOSIN HCL 0.4 MG CAP.SR.24H PO SCH (22:26)
[2018-07-06] MEDS: FUROSEMIDE INJ/PF 40 MG/4 ML SDV IV SCH ×3 (05:41→23:18)
[2018-07-06] MEDS: HEPARIN SOD (PORCINE) 5,000 UNIT/ML 1 ML SYRINGE SUBCUT SCH ×3 (05:42→23:13)
[2018-07-06 06:51] LABS: HEMATOCRIT 32.8 % (37.9-51.0); HEMOGLOBIN 10.3 g/dL (13.5-17.0); MEAN CORPUSCULAR HEMOGLOBIN 24.9 pg (27.0-33.4); MEAN CORPUSCULAR HGB CONC 31.6 g/dL (32.0-36.0); MEAN CORPUSCULAR VOLUME 79 fl (80-97); PLATELET COUNT 146 10^3/uL (150-450); RED BLOOD COUNT 4.15 10^6/uL (4.35-5.55); RED CELL DISTRIBUTION WIDTH 18.7 % (11.5-14.0); WHITE BLOOD COUNT 12.8 10^3/uL (4.0-10.5)
[2018-07-06 07:23] LABS: ABSOLUTE LYMPHOCYTES# (MANUAL) 0.5 10^3/uL (0.5-4.7); ABSOLUTE MONOCYTES # (MANUAL) 0.5 10^3/uL (0.1-1.4); ABSOLUTE NEUTROPHILS# (MANUAL) 11.8 10^3/uL (1.7-8.2); BASOPHILS % (MANUAL) 0 % (0-2); EOSINOPHILS % (MANUAL) 0 % (0-6); LYMPHOCYTES % (MANUAL) 4 % (13-45); MONOCYTES % (MANUAL) 4 % (3-13); SEGMENTED NEUTROPHILS % (MAN) 92 % (42-78); TOTAL CELLS COUNTED 100
[2018-07-06 07:25] LABS: TOXIC GRANULATION 1+; TOXIC VACUOLATION PRESENT
[2018-07-06 07:26] LABS: ANISOCYTOSIS 1+; BURR CELLS SLIGHT; HELMET CELLS SLIGHT; OVALOCYTES 2+; POIKILOCYTOSIS 2+; SCHISTOCYTES 1+
[2018-07-06 07:27] LABS: PLATELET COMMENT ADEQUATE; TARGET CELLS 1+; TEAR DROP CELLS 1+
[2018-07-06 07:39] LABS: MYCOPLASMA PNEUMONIAE IGG AB 375 U/mL (0-99); MYCOPLASMA PNEUMONIAE IGM AB <770 U/mL (0-769)
[2018-07-06] MEDS: INSULIN LISPRO 100 UNIT/ML 3 ML VIAL SUBCUT PRN ×3 (08:06→17:39)
--- NOTE | 2018-07-06 08:09 | PDOC PROGRESS REPORT ---
Subjective Progress Note for:: 07/06/18 Subjective:: Speech therapy evaluated pt, he has delayed swallow, can have ice chips and apple sauce for now. Pt is interested in trying to eat. He is more responsive this am. Reason For Visit: ALTERED MENTAL STATUS,METABOLIC ENCEPHALOPATHY Physical Exam Vital Signs: Temp Pulse Resp BP Pulse Ox 98.3 F 73 16 137/43 H 100 07/05/18 23:26 07/06/18 02:00 07/05/18 23:26 07/05/18 23:26 07/06/18 00:12 Intake & Output 07/05/18 07/06/18 07/07/18 06:59 06:59 06:59 Intake Total 300 1050 Output Total 1560 1150 Balance -1260 -100 Weight 77.6 kg 77.6 kg General appearance: PRESENT: no acute distress, well-developed, well-nourished Head exam: PRESENT: atraumatic, normocephalic Eye exam: PRESENT: conjunctiva pink, EOMI, PERRLA. ABSENT: scleral icterus Ear exam: PRESENT: normal external ear exam Mouth exam: PRESENT: moist, tongue midline Neck exam: ABSENT: carotid bruit, JVD, lymphadenopathy, thyromegaly Respiratory exam: PRESENT: clear to auscultation yuliya. ABSENT: rales, rhonchi, wheezes Cardiovascular exam: PRESENT: RRR. ABSENT: diastolic murmur, rubs, systolic murmur Pulses: PRESENT: normal dorsalis pedis pul Vascular exam: PRESENT: normal capillary refill GI/Abdominal exam: PRESENT: normal bowel sounds, soft. ABSENT: distended, guarding, mass, organolmegaly, rebound, tenderness Rectal exam: PRESENT: deferred Extremities exam: PRESENT: full ROM. ABSENT: calf tenderness, clubbing, pedal edema Neurological exam: PRESENT: alert, awake, oriented to person, oriented to place , oriented to time, oriented to situation, CN II-XII grossly intact. ABSENT: motor sensory deficit Psychiatric exam: PRESENT: appropriate affect, normal mood. ABSENT: homicidal ideation, suicidal ideation Skin exam: PRESENT: dry, intact, warm. ABSENT: cyanosis, rash Results Laboratory Results: 07/06/18 05:39 07/06/18 07/06/18 05:39 05:54 WBC 12.8 H RBC 4.15 L Hgb 10.3 L Hct 32.8 L MCV 79 L MCH 24.9 L MCHC 31.6 L RDW 18.7 H Plt Count 146 L Seg Neutrophils % Not Reportable Lymphocytes % Not Reportable Monocytes % Not Reportable Eosinophils % Not Reportable Basophils % Not Reportable Absolute Neutrophils Not Reportable Absolute Lymphocytes Not Reportable Absolute Monocytes Not Reportable Absolute Eosinophils Not Reportable Absolute Basophils Not Reportable TSH 2.59 07/02/18 12:46 Cerebral Spinal Fluid - Csf Gram Stain - Final 07/02/18 12:46 Cerebral Spinal Fluid - Csf CSF Culture - Final NO GROWTH 3 DAYS 07/01/18 07/01/18 07/02/18 03:54 03:54 16:05 Creatine Kinase 617 H 367 H NT-Pro-B Natriuret Pep 9380 H 07/03/18 07/03/18 07/04/18 08:45 08:45 03:53 Creatine Kinase 291 H NT-Pro-B Natriuret Pep 8430 H 9560 H Impressions: Abdomen/Pelvis CT 06/30/18 00:00 IMPRESSION: Fluid overload with bilateral moderate pleural effusions and small amount of ascites. Bibasilar consolidation atelectasis versus pneumonia Head CT 06/30/18 10:00 IMPRESSION: No acute intracranial pathology. No noncontrast CT findings to explain symptoms. MRI may be used to more sensitively evaluate for acute diffusion restricting infarction if suspected. EVIDENCE OF ACUTE STROKE: NO. Head MRI 07/01/18 14:54 IMPRESSION: Mild involutional changes of aging with no acute intracranial imaging findings on this slightly limited study. EVIDENCE OF ACUTE STROKE: NO. Guidance Fluoroscopy 07/02/18 00:00 IMPRESSION: Lumbar puncture under fluoroscopy. No immediate complication. Lumbar Puncture 07/02/18 10:40 IMPRESSION: Lumbar puncture under fluoroscopy. No immediate complication. Thoracentesis Ultrasound 07/03/18 10:19 IMPRESSION: SUCCESSFUL THORACENTESIS USING ULTRASOUND GUIDANCE. Chest X-Ray 07/03/18 18:00 IMPRESSION: Stable pulmonary exam demonstrating small bilateral pleural effusions. Assessment & Plan - Diagnosis (1) Altered mental status Qualifiers: Altered mental status type: delirium Qualified Code(s): R41.0 - Disorientation, unspecified Is this a current diagnosis for this admission?: Yes Plan: Improved, not cancer related, hopefully will cont to improve (2) Difficulty swallowing liquids Is this a current diagnosis for this admission?: Yes Plan: Hopefully will cont to improve, speech following, suggested to nursing continue to push to improve diet (3) Prostate cancer Is this a current diagnosis for this admission?: Yes Plan: Overall stable, would like to cont rx as outpt if pt improves
--- NOTE | 2018-07-06 08:28 | PDOC PROGRESS REPORT ---
Subjective Progress Note for:: 07/06/18 Subjective:: The patient seemed to be slightly more awake. He is only oriented to place. He has significant amount of diureses. His cultures were positive for IgG for mycoplasma. Reason For Visit: ALTERED MENTAL STATUS,METABOLIC ENCEPHALOPATHY Physical Exam Vital Signs: Temp Pulse Resp BP Pulse Ox 98.3 F 84 16 137/43 H 100 07/05/18 23:26 07/06/18 07:00 07/05/18 23:26 07/05/18 23:26 07/06/18 00:12 Intake & Output 07/05/18 07/06/18 07/07/18 06:59 06:59 06:59 Intake Total 300 1050 Output Total 1560 1150 Balance -1260 -100 Weight 77.6 kg 77.6 kg General appearance: PRESENT: disheveled, mild distress Eye exam: PRESENT: conjunctival injection Mouth exam: PRESENT: dry mucosa Neck exam: PRESENT: carotid bruit. ABSENT: JVD Respiratory exam: PRESENT: rhonchi Cardiovascular exam: PRESENT: irregular rhythm, +S1, +S2 GI/Abdominal exam: PRESENT: normal bowel sounds, soft Extremities exam: PRESENT: tenderness Musculoskeletal exam: PRESENT: tenderness Neurological exam: PRESENT: awake. ABSENT: oriented to person, oriented to time Psychiatric exam: PRESENT: flat affect Results Laboratory Results: 07/06/18 05:39 07/06/18 07/06/18 05:39 05:54 WBC 12.8 H RBC 4.15 L Hgb 10.3 L Hct 32.8 L MCV 79 L MCH 24.9 L MCHC 31.6 L RDW 18.7 H Plt Count 146 L Seg Neutrophils % Not Reportable Lymphocytes % Not Reportable Monocytes % Not Reportable Eosinophils % Not Reportable Basophils % Not Reportable Absolute Neutrophils Not Reportable Absolute Lymphocytes Not Reportable Absolute Monocytes Not Reportable Absolute Eosinophils Not Reportable Absolute Basophils Not Reportable TSH 2.59 07/02/18 12:46 Cerebral Spinal Fluid - Csf Gram Stain - Final 07/02/18 12:46 Cerebral Spinal Fluid - Csf CSF Culture - Final NO GROWTH 3 DAYS 07/01/18 07/01/18 07/02/18 03:54 03:54 16:05 Creatine Kinase 617 H 367 H NT-Pro-B Natriuret Pep 9380 H 07/03/18 07/03/18 07/04/18 08:45 08:45 03:53 Creatine Kinase 291 H NT-Pro-B Natriuret Pep 8430 H 9560 H Impressions: Abdomen/Pelvis CT 06/30/18 00:00 IMPRESSION: Fluid overload with bilateral moderate pleural effusions and small amount of ascites. Bibasilar consolidation atelectasis versus pneumonia Head CT 06/30/18 10:00 IMPRESSION: No acute intracranial pathology. No noncontrast CT findings to explain symptoms. MRI may be used to more sensitively evaluate for acute diffusion restricting infarction if suspected. EVIDENCE OF ACUTE STROKE: NO. Head MRI 07/01/18 14:54 IMPRESSION: Mild involutional changes of aging with no acute intracranial imaging findings on this slightly limited study. EVIDENCE OF ACUTE STROKE: NO. Guidance Fluoroscopy 07/02/18 00:00 IMPRESSION: Lumbar puncture under fluoroscopy. No immediate complication. Lumbar Puncture 07/02/18 10:40 IMPRESSION: Lumbar puncture under fluoroscopy. No immediate complication. Thoracentesis Ultrasound 07/03/18 10:19 IMPRESSION: SUCCESSFUL THORACENTESIS USING ULTRASOUND GUIDANCE. Chest X-Ray 07/03/18 18:00 IMPRESSION: Stable pulmonary exam demonstrating small bilateral pleural effusions. Assessment & Plan - Diagnosis (1) Altered mental status Qualifiers: Altered mental status type: delirium Qualified Code(s): R41.0 - Disorientation, unspecified Is this a current diagnosis for this admission?: Yes Plan: Possibly worsening dementia. Loss of short-term memory. We will restart the Zoloft and add Aricept (2) Dehydration Is this a current diagnosis for this admission?: Yes Plan: Possible cause of hyponatremia. The patient right now is fluid overloaded. Will stop the D5 and start diuretics (3) Hypernatremia Is this a current diagnosis for this admission?: Yes Plan: Improved with diuretics (4) New onset atrial fibrillation Is this a current diagnosis for this admission?: Yes Plan: Rate controlled (5) CKD (chronic kidney disease) stage 3, GFR 30-59 ml/min Is this a current diagnosis for this admission?: Yes (6) Hypertension Qualifiers: Hypertension type: unspecified Qualified Code(s): I10 - Essential (primary ) hypertension Is this a current diagnosis for this admission?: Yes Plan: Continue current treatment (7) Physical deconditioning Is this a current diagnosis for this admission?: Yes Plan: Will need PT OT (8) Prostate cancer Is this a current diagnosis for this admission?: Yes Plan: Stage IV with metastasis. (9) Memory loss, short term Is this a current diagnosis for this admission?: Yes Plan: Possibly worsening dementia.
[2018-07-06] MEDS ORDERED: DONEPEZIL HCL 5 MG TABLET PO SCH (10:00)
[2018-07-06] MEDS ORDERED: SERTRALINE HCL 50 MG TABLET PO SCH (10:00)
[2018-07-06] MEDS: CEFTRIAXONE SODIUM 1,000 MG in DEXTROSE 5%-WATER 50 ML IV SCH (10:43)
[2018-07-06] MEDS: LEVOFLOXACIN 500 MG TABLET PO SCH (10:53)
[2018-07-06] MEDS: AMLODIPINE BESYLATE 10 MG TABLET PO SCH (10:53)
[2018-07-06] MEDS: DOCUSATE SODIUM 100 MG CAPSULE PO SCH ×2 (10:53→11:02)
[2018-07-06] MEDS: MULTIVITAMINS W-IRON TABLET, CHEWABLE PO SCH (10:54)
[2018-07-06] MEDS: ASPIRIN 81 MG TABLET, CHEWABLE PO SCH (10:54)
[2018-07-06 11:47] LABS: ALANINE AMINOTRANSFERASE 55 U/L (21-72); ALBUMIN 2.6 g/dL (3.5-5.0); ALKALINE PHOSPHATASE 413 U/L (38-126); ANION GAP 13 (5-19); ASPARTATE AMINO TRANSFERASE 135 U/L (17-59); BILIRUBIN,DIRECT 0.5 mg/dL (0.0-0.4); BILIRUBIN,TOTAL 0.6 mg/dL (0.2-1.3); BLOOD UREA NITROGEN 30 mg/dL (7-20); CALCIUM 7.2 mg/dL (8.4-10.2); CARBON DIOXIDE 21 mmol/L (22-30); CHLORIDE 115 mmol/L (98-107); GLUCOSE 172 mg/dL (75-110); POTASSIUM 3.6 mmol/L (3.6-5.0); SODIUM 148.7 mmol/L (137-145); TOTAL PROTEIN 5.4 g/dL (6.3-8.2)
[2018-07-06 12:55] LABS: FOLATE 3.83 ng/mL (>2.76)
[2018-07-06] MEDS ORDERED: NORMAL SALINE 10 ML SDV (AFTER EACH USE) IV PRN (14:25)
--- NOTE | 2018-07-06 15:52 | RADIOLOGY REPORT (SQ) ---
EXAM DESCRIPTION: PICC INSERTION; U/S GUIDE FOR VASCULAR ACCESS; FLUORO/CV PLACEMENT COMPLETED DATE/TIME: 07/06/2018 3:33 pm; 07/06/2018 3:34 pm REASON FOR STUDY: poor venous access; IV ACCESS; IV ABX COMPARISON: None. FLUOROSCOPY TIME: AP chest 07/03/2018 1 AP chest fluoroscopic image and 1 ultrasound images saved to PACS. TECHNIQUE: Fluoroscopic and ultrasound guided PICC placement. LIMITATIONS: None. PROCEDURE: After written consent and assessment were obtained, the patient was brought into the fluo roscopy room and placed supine on the table. Ultrasound evaluation of potential access sites were per formed. After successfully identifying a patent left basilic vein, the left arm was prepped and drape d in a sterile fashion along with the ultrasound probe. The entry site was anesthetized with 1% lidoc shari. A 21 gauge 7 cm needle was advanced through the skin and into the basilic vein under live ultra sound guidance. An ultrasound image was saved to PACS confirming access site. A .018 guide wire was then inserted through the needle and into the venous system. The needle was then removed and an 11 b lade scalpel was used to make a 1cm skin incision. A 5 fr peel-away sheath was advanced over the wir e and into the venous system. A measurement was then made using the existing wire and live fluoroscop ic guidance. The wire was then removed and trimmed. The PICC was advanced through the peel-away sheat h and into the venous system. The peel-away sheath was removed and the catheter was adhered to the pa tients arm with a stat lock. The catheter was then aspirated and flushed and a sterile bandage was pl aced over the access site. A fluoroscopic spot image was saved to PACS confirming the catheter tip w ithin the superior vena cava. IMPRESSION: SUCCESSFUL PLACEMENT OF A 5 FR DUAL LUMEN 42 CM PICC IN THE LEFT BASILIC VEIN. COMMENT: Patient medication list reviewed: Yes- Quality ID# 130:Eligible professional attests to doc umenting in the medical record they obtained, updated, or reviewed the patient's current medications. . Quality ID 145: Final reports for procedures using fluoroscopy that document radiation exposure isaias stalin, or exposure time and number of fluorographic images (if radiation exposure indices are not avail able) Quality ID #76: The patient was prepped and draped using maximum sterile barrier technique including cap, mask, sterile gown, sterile gloves, a large sterile sheet, hand hygiene, and 2% Chlorhexidine fo r cutaneous antisepsis. When ultrasound is used, sterile ultrasound techniques are followed requiring sterile gel and sterile probes. TECHNICAL DOCUMENTATION: JOB ID: [id number] [employer]- All Rights Reserved rev-12/25 Reading location - IP/workstation name: [email or web address] [id number]
--- NOTE | 2018-07-06 20:44 | Progress Note ---
Provider Note Provider Note: ID Consult Note Asked to review patient's chart by Pharmacy. Pt not seen or examined. Reviewed VS, imaging reports, culture results, other pertinent labs and provider reports. Mr Kaur is a 72 year old man with PMH including stage IV prostate cancer with lung and bone metastases, DM, HTN, CHF and CKD who [facility] with altered mental status - "not acting like himself," with the family noting slurred speech on Thursday and inability to understand the patient at all on Thursday. ED and admitting providers noted pt to have irregularly irrgular heart rhythm, clear lungs b/l without respiratory distress , dry mucous membranes, and skin tenting. Pt was found to have new onset AF. Labs revealed leukocytosis, evidence of acute kidney injury. Imaging and lab studies included: U/A - no pyuria. UCx no growth. Blood cultures negative. LP on 07/02 yielded CSF with a formula inconsistent with bacterial meningitis and no culture growth or Gram stain evidence of such. CXR was read as showing diminished aeration in the lung bases b/l with dense consolidation R>L and mild vascular congestion. Pleural fluid was tapped on 07/03 and yielded clear fluid consistent with a transudate. Pleural fluid culture - no growth. Mycoplasma IgG was positive in the serum with negative IgM, results suggesting past exposure. Impression/Recommendations Pt has received 4 days of Rocephin before losing IV access. If the patient is being treated for community acquired pneumonia, Levaquin PO is a reasonable empiric choice to finish treatment. Consideration could also be given to cefuroxime 500 mg BID plus doxycycline 100 mg BID (if there is a desire to avoid fluoroquinolones, given the association with delirium in elderly). Recommend discontinuing IV Rocephin to avoid duplicate therapy. Jeevan Swan MD [facility] Infectious Diseases pager [phone]
[2018-07-06] MEDS ORDERED: NORMAL SALINE 10 ML SDV (SCHEDULED) IV SCH (22:00)
[2018-07-06] MEDS: TAMSULOSIN HCL 0.4 MG CAP.SR.24H PO SCH ×2 (23:18→23:44)
[2018-07-06] MEDS: HYDRALAZINE HCL 10 MG TABLET PO SCH ×2 (23:18→23:44)
[2018-07-07] MEDS: HEPARIN SOD (PORCINE) 5,000 UNIT/ML 1 ML SYRINGE SUBCUT SCH ×3 (06:03→22:38)
[2018-07-07] MEDS: HYDRALAZINE HCL 10 MG TABLET PO SCH ×6 (06:22→23:54)
--- NOTE | 2018-07-07 07:57 | PDOC PROGRESS REPORT ---
Subjective Progress Note for:: 07/07/18 Subjective:: Pt confused overnight, pulled PICC line, this am he is talkative, knows the place and date put not much else, is angry that he haves gloves on, wants to talk to his assurance senior Reason For Visit: ALTERED MENTAL STATUS,METABOLIC ENCEPHALOPATHY Physical Exam Vital Signs: Temp Pulse Resp BP Pulse Ox 97.8 F 80 16 145/46 H 99 07/07/18 03:00 07/07/18 07:00 07/07/18 03:00 07/07/18 03:00 07/07/18 03:00 Intake & Output 07/06/18 07/07/18 07/08/18 06:59 06:59 06:59 Intake Total 1050 0 Output Total 1150 1550 Balance -100 -1550 Weight 77.6 kg 77.6 kg General appearance: PRESENT: mild distress Head exam: PRESENT: atraumatic Mouth exam: PRESENT: dry mucosa Respiratory exam: PRESENT: clear to auscultation yuliya. ABSENT: rales, rhonchi, wheezes Cardiovascular exam: PRESENT: RRR. ABSENT: diastolic murmur, rubs, systolic murmur GI/Abdominal exam: PRESENT: normal bowel sounds, soft. ABSENT: distended, guarding, mass, organolmegaly, rebound, tenderness Rectal exam: PRESENT: deferred Neurological exam: PRESENT: altered, oriented to place, oriented to time Psychiatric exam: PRESENT: agitated, anxious Focused psych exam: PRESENT: flight of ideas Results Laboratory Results: 07/06/18 05:39 07/06/18 10:24 07/06/18 07/06/18 07/06/18 05:54 05:54 10:24 Sodium Cancelled 148.7 H Potassium Cancelled 3.6 Chloride Cancelled 115 H Carbon Dioxide Cancelled 21 L Anion Gap Cancelled 13 BUN Cancelled 30 H Creatinine Cancelled 1.22 Est GFR ( Amer) Cancelled > 60 Est GFR (Non-Af Amer) Cancelled 58 L Glucose Cancelled 172 H Calcium Cancelled 7.2 L Total Bilirubin Cancelled 0.6 AST Cancelled 135 H ALT Cancelled 55 Alkaline Phosphatase Cancelled 413 H Total Protein Cancelled 5.4 L Albumin Cancelled 2.6 L Vitamin B12 Cancelled 719.0 Folate Cancelled 3.83 TSH 2.59 1107/01/18 07/02/18 03:54 03:54 16:05 Creatine Kinase 617 H 367 H NT-Pro-B Natriuret Pep 9380 H 07/03/18 07/03/18 07/04/18 08:45 08:45 03:53 Creatine Kinase 291 H NT-Pro-B Natriuret Pep 8430 H 9560 H Impressions: Abdomen/Pelvis CT 06/30/18 00:00 IMPRESSION: Fluid overload with bilateral moderate pleural effusions and small amount of ascites. Bibasilar consolidation atelectasis versus pneumonia Head CT 06/30/18 10:00 IMPRESSION: No acute intracranial pathology. No noncontrast CT findings to explain symptoms. MRI may be used to more sensitively evaluate for acute diffusion restricting infarction if suspected. EVIDENCE OF ACUTE STROKE: NO. Head MRI 07/01/18 14:54 IMPRESSION: Mild involutional changes of aging with no acute intracranial imaging findings on this slightly limited study. EVIDENCE OF ACUTE STROKE: NO. Lumbar Puncture 07/02/18 10:40 IMPRESSION: Lumbar puncture under fluoroscopy. No immediate complication. Thoracentesis Ultrasound 07/03/18 10:19 IMPRESSION: SUCCESSFUL THORACENTESIS USING ULTRASOUND GUIDANCE. Chest X-Ray 07/03/18 18:00 IMPRESSION: Stable pulmonary exam demonstrating small bilateral pleural effusions. Guidance Fluoroscopy 07/06/18 00:00 IMPRESSION: SUCCESSFUL PLACEMENT OF A 5 FR DUAL LUMEN 42 CM PICC IN THE LEFT BASILIC VEIN. Interventional Vascular Procedure 07/06/18 00:00 IMPRESSION: SUCCESSFUL PLACEMENT OF A 5 FR DUAL LUMEN 42 CM PICC IN THE LEFT BASILIC VEIN. PICC Line Insertion 07/06/18 00:00 IMPRESSION: SUCCESSFUL PLACEMENT OF A 5 FR DUAL LUMEN 42 CM PICC IN THE LEFT BASILIC VEIN. Assessment & Plan - Diagnosis (1) Altered mental status Qualifiers: Altered mental status type: delirium Qualified Code(s): R41.0 - Disorientation, unspecified Is this a current diagnosis for this admission?: Yes Plan: Worsened delirium overnight, probable . Will get sitter for pt, talk w / daughter (2) Difficulty swallowing liquids Is this a current diagnosis for this admission?: Yes Plan: Would like to advance but pt still w/ AMS (3) Prostate cancer Is this a current diagnosis for this admission?: Yes Plan: being rx w/ lupron and would like to cont rx as outpt if pt improves - Time Time Spent with patient: 35 or more minutes - Inpatient Certification Based on my medical assessment, after consideration of the patient's comorbidities, presenting symptoms, or acuity I expect that the services needed warrant INPATIENT care.: Yes I certify that my determination is in accordance with my understanding of Medicare's requirements for reasonable and necessary INPATIENT services [42 CFR 412.3e].: Yes Medical Necessity: Need for Neurological Checks, Need for IV Antibiotics, Risk of Complication if Not Cared For in Hospital
[2018-07-07] MEDS ORDERED: HALOPERIDOL LACTATE INJ 5 MG/1 ML VIAL IM PRN (08:37)
[2018-07-07] MEDS ORDERED: LOPERAMIDE HCL 2 MG CAPSULE PO PRN (08:41)
--- NOTE | 2018-07-07 08:45 | PDOC PROGRESS REPORT ---
Subjective Progress Note for:: 07/07/18 Subjective:: The patient appears to be worse today. He had a sundowning with agitation last night and has pulled out his PICC line. He presently has no access. He is not taking anything by mouth. Reason For Visit: ALTERED MENTAL STATUS,METABOLIC ENCEPHALOPATHY Physical Exam Vital Signs: Temp Pulse Resp BP Pulse Ox 98.4 F 79 16 148/54 H 100 07/07/18 07:30 07/07/18 07:30 07/07/18 07:30 07/07/18 07:30 07/07/18 07:30 Intake & Output 07/06/18 07/07/18 07/08/18 06:59 06:59 06:59 Intake Total 1050 0 Output Total 1150 1550 Balance -100 -1550 Weight 77.6 kg 77.6 kg General appearance: PRESENT: mild distress Eye exam: PRESENT: conjunctiva pink Mouth exam: PRESENT: dry mucosa Neck exam: PRESENT: carotid bruit. ABSENT: JVD Respiratory exam: PRESENT: crackles Cardiovascular exam: PRESENT: irregular rhythm, +S1, +S2 GI/Abdominal exam: PRESENT: normal bowel sounds, soft Extremities exam: PRESENT: tenderness Musculoskeletal exam: PRESENT: tenderness Neurological exam: PRESENT: awake Psychiatric exam: PRESENT: agitated Results Laboratory Results: 07/06/18 05:39 07/06/18 10:24 07/06/18 10:24 Sodium 148.7 H Potassium 3.6 Chloride 115 H Carbon Dioxide 21 L Anion Gap 13 BUN 30 H Creatinine 1.22 Est GFR ( Amer) > 60 Est GFR (Non-Af Amer) 58 L Glucose 172 H Calcium 7.2 L Total Bilirubin 0.6 AST 135 H ALT 55 Alkaline Phosphatase 413 H Total Protein 5.4 L Albumin 2.6 L Vitamin B12 719.0 Folate 3.83 07/01/18 07/01/18 07/02/18 03:54 03:54 16:05 Creatine Kinase 617 H 367 H NT-Pro-B Natriuret Pep 9380 H 07/03/18 07/03/18 07/04/18 08:45 08:45 03:53 Creatine Kinase 291 H NT-Pro-B Natriuret Pep 8430 H 9560 H Impressions: Abdomen/Pelvis CT 06/30/18 00:00 IMPRESSION: Fluid overload with bilateral moderate pleural effusions and small amount of ascites. Bibasilar consolidation atelectasis versus pneumonia Head CT 06/30/18 10:00 IMPRESSION: No acute intracranial pathology. No noncontrast CT findings to explain symptoms. MRI may be used to more sensitively evaluate for acute diffusion restricting infarction if suspected. EVIDENCE OF ACUTE STROKE: NO. Head MRI 07/01/18 14:54 IMPRESSION: Mild involutional changes of aging with no acute intracranial imaging findings on this slightly limited study. EVIDENCE OF ACUTE STROKE: NO. Lumbar Puncture 07/02/18 10:40 IMPRESSION: Lumbar puncture under fluoroscopy. No immediate complication. Thoracentesis Ultrasound 07/03/18 10:19 IMPRESSION: SUCCESSFUL THORACENTESIS USING ULTRASOUND GUIDANCE. Chest X-Ray 07/03/18 18:00 IMPRESSION: Stable pulmonary exam demonstrating small bilateral pleural effusions. Guidance Fluoroscopy 07/06/18 00:00 IMPRESSION: SUCCESSFUL PLACEMENT OF A 5 FR DUAL LUMEN 42 CM PICC IN THE LEFT BASILIC VEIN. Interventional Vascular Procedure 07/06/18 00:00 IMPRESSION: SUCCESSFUL PLACEMENT OF A 5 FR DUAL LUMEN 42 CM PICC IN THE LEFT BASILIC VEIN. PICC Line Insertion 07/06/18 00:00 IMPRESSION: SUCCESSFUL PLACEMENT OF A 5 FR DUAL LUMEN 42 CM PICC IN THE LEFT BASILIC VEIN. Assessment & Plan - Diagnosis (1) Altered mental status Qualifiers: Altered mental status type: delirium Qualified Code(s): R41.0 - Disorientation, unspecified Is this a current diagnosis for this admission?: Yes Plan: Possibly worsening dementia. Loss of short-term memory. We will restart the Zoloft and add Aricept (2) Dehydration Is this a current diagnosis for this admission?: Yes (3) Hypernatremia Is this a current diagnosis for this admission?: Yes (4) New onset atrial fibrillation Is this a current diagnosis for this admission?: Yes Plan: Rate controlled (5) CKD (chronic kidney disease) stage 3, GFR 30-59 ml/min Is this a current diagnosis for this admission?: Yes (6) Hypertension Qualifiers: Hypertension type: unspecified Qualified Code(s): I10 - Essential (primary ) hypertension Is this a current diagnosis for this admission?: Yes (7) Physical deconditioning Is this a current diagnosis for this admission?: Yes (8) Prostate cancer Is this a current diagnosis for this admission?: Yes Plan: Stage IV with metastasis. (9) Memory loss, short term Is this a current diagnosis for this admission?: Yes (10) Acute psychosis Is this a current diagnosis for this admission?: Yes Plan: Possibly sundowning versus medication induced. Will obtain psych and start Haldol
[2018-07-07] MEDS: MULTIVITAMINS W-IRON TABLET, CHEWABLE PO SCH (12:20)
[2018-07-07] MEDS: AMLODIPINE BESYLATE 10 MG TABLET PO SCH (12:24)
[2018-07-07] MEDS: LEVOFLOXACIN 500 MG TABLET PO SCH (12:24)
[2018-07-07] MEDS: ASPIRIN 81 MG TABLET, CHEWABLE PO SCH (12:24)
--- NOTE | 2018-07-07 19:03 | EKG REPORT ---
SEVERITY:- ABNORMAL ECG - ATRIAL FIBRILLATION, V-RATE 62-77 BORDERLINE LEFT AXIS DEVIATION : Confirmed by: Apolinar Arango MD 07-Jul-2018 19:02:46
[2018-07-07] MEDS: TAMSULOSIN HCL 0.4 MG CAP.SR.24H PO SCH ×2 (22:35→22:58)
[2018-07-08] MEDS: HEPARIN SOD (PORCINE) 5,000 UNIT/ML 1 ML SYRINGE SUBCUT SCH ×3 (06:41→22:33)
[2018-07-08] MEDS: HYDRALAZINE HCL 10 MG TABLET PO SCH ×3 (06:44→22:32)
--- NOTE | 2018-07-08 07:54 | PDOC PROGRESS REPORT ---
Subjective Progress Note for:: 07/08/18 Subjective:: Overnight pt agitated once again likely , was given haldol w/ good effect. Yesterday pt w/ mits most of day but removed as pt was less agitated during the day. Po intake still poor, pt pockets food in mouth but does eventually follow instructions. Asked nursing to have more assistance w/ eating for pt Reason For Visit: ALTERED MENTAL STATUS,METABOLIC ENCEPHALOPATHY Physical Exam Vital Signs: Temp Pulse Resp BP Pulse Ox 98.4 F 90 18 168/57 H 100 07/08/18 03:50 07/08/18 03:50 07/08/18 03:50 07/08/18 03:50 07/08/18 03:50 Intake & Output 07/07/18 07/08/18 07/09/18 06:59 06:59 06:59 Intake Total 0 20 Output Total 1550 700 Balance -1550 -680 Weight 77.6 kg 76.2 kg General appearance: PRESENT: no acute distress, well-developed, well-nourished Head exam: PRESENT: atraumatic, normocephalic Eye exam: PRESENT: conjunctiva pink, EOMI, PERRLA. ABSENT: scleral icterus Ear exam: PRESENT: normal external ear exam Mouth exam: PRESENT: moist, tongue midline Neck exam: ABSENT: carotid bruit, JVD, lymphadenopathy, thyromegaly Respiratory exam: PRESENT: clear to auscultation yuliya. ABSENT: rales, rhonchi, wheezes Cardiovascular exam: PRESENT: RRR. ABSENT: diastolic murmur, rubs, systolic murmur Pulses: PRESENT: normal dorsalis pedis pul Vascular exam: PRESENT: normal capillary refill GI/Abdominal exam: PRESENT: normal bowel sounds, soft. ABSENT: distended, guarding, mass, organolmegaly, rebound, tenderness Rectal exam: PRESENT: deferred Extremities exam: PRESENT: full ROM. ABSENT: calf tenderness, clubbing, pedal edema Neurological exam: PRESENT: alert, awake, oriented to person, oriented to place , oriented to time, oriented to situation, CN II-XII grossly intact. ABSENT: motor sensory deficit Psychiatric exam: PRESENT: appropriate affect, normal mood. ABSENT: homicidal ideation, suicidal ideation Skin exam: PRESENT: dry, intact, warm. ABSENT: cyanosis, rash Results Laboratory Results: 07/06/18 05:39 07/06/18 10:24 07/03/18 16:15 Pleural Fluid Gram Stain - Final 07/03/18 16:15 Pleural Fluid Body Fluid Culture - Final NO AEROBIC OR ANAEROBIC ORGANISMS RECOVERED 07/01/18 07/01/18 07/02/18 03:54 03:54 16:05 Creatine Kinase 617 H 367 H NT-Pro-B Natriuret Pep 9380 H 07/03/18 07/03/18 07/04/18 08:45 08:45 03:53 Creatine Kinase 291 H NT-Pro-B Natriuret Pep 8430 H 9560 H Impressions: Abdomen/Pelvis CT 06/30/18 00:00 IMPRESSION: Fluid overload with bilateral moderate pleural effusions and small amount of ascites. Bibasilar consolidation atelectasis versus pneumonia Head CT 06/30/18 10:00 IMPRESSION: No acute intracranial pathology. No noncontrast CT findings to explain symptoms. MRI may be used to more sensitively evaluate for acute diffusion restricting infarction if suspected. EVIDENCE OF ACUTE STROKE: NO. Head MRI 07/01/18 14:54 IMPRESSION: Mild involutional changes of aging with no acute intracranial imaging findings on this slightly limited study. EVIDENCE OF ACUTE STROKE: NO. Lumbar Puncture 07/02/18 10:40 IMPRESSION: Lumbar puncture under fluoroscopy. No immediate complication. Thoracentesis Ultrasound 07/03/18 10:19 IMPRESSION: SUCCESSFUL THORACENTESIS USING ULTRASOUND GUIDANCE. Chest X-Ray 07/03/18 18:00 IMPRESSION: Stable pulmonary exam demonstrating small bilateral pleural effusions. Guidance Fluoroscopy 07/06/18 00:00 IMPRESSION: SUCCESSFUL PLACEMENT OF A 5 FR DUAL LUMEN 42 CM PICC IN THE LEFT BASILIC VEIN. Interventional Vascular Procedure 07/06/18 00:00 IMPRESSION: SUCCESSFUL PLACEMENT OF A 5 FR DUAL LUMEN 42 CM PICC IN THE LEFT BASILIC VEIN. PICC Line Insertion 07/06/18 00:00 IMPRESSION: SUCCESSFUL PLACEMENT OF A 5 FR DUAL LUMEN 42 CM PICC IN THE LEFT BASILIC VEIN. Assessment & Plan - Diagnosis (1) Altered mental status Qualifiers: Altered mental status type: delirium Qualified Code(s): R41.0 - Disorientation, unspecified Is this a current diagnosis for this admission?: Yes Plan: Delerium w/ underlying dementia, still very confused, trying to minimize any delirium inducing meds/events in hospital and hopefully pt will improve, pt started on zoloft/aricept to help also, haldol seems to improve his agitation. (2) Difficulty swallowing liquids Is this a current diagnosis for this admission?: Yes Plan: Cont w/ bedside nutrition orally as tolerated. (3) Prostate cancer Is this a current diagnosis for this admission?: Yes Plan: Stage IV, not needing further rx yet, just received lupron about 2-3 weeks ago. - Time Time Spent with patient: 35 or more minutes - Inpatient Certification Based on my medical assessment, after consideration of the patient's comorbidities, presenting symptoms, or acuity I expect that the services needed warrant INPATIENT care.: Yes I certify that my determination is in accordance with my understanding of Medicare's requirements for reasonable and necessary INPATIENT services [42 CFR 412.3e].: Yes Medical Necessity: Need for Neurological Checks, Risk of Complication if Not Cared For in Hospital
[2018-07-08] MEDS: AMLODIPINE BESYLATE 10 MG TABLET PO SCH (10:29)
[2018-07-08] MEDS: ASPIRIN 81 MG TABLET, CHEWABLE PO SCH (10:30)
[2018-07-08] MEDS: MULTIVITAMINS W-IRON TABLET, CHEWABLE PO SCH (10:30)
[2018-07-08] MEDS: LEVOFLOXACIN 500 MG TABLET PO SCH (10:30)
--- NOTE | 2018-07-08 12:06 | PDOC PROGRESS REPORT ---
Subjective Progress Note for:: 07/08/18 Subjective:: The patient appears to be much calmer this morning. He is actually making sense during conversation. He did have some food. Reason For Visit: ALTERED MENTAL STATUS,METABOLIC ENCEPHALOPATHY Physical Exam Vital Signs: Temp Pulse Resp BP Pulse Ox 97.8 F 74 16 130/51 H 100 07/08/18 11:19 07/08/18 11:19 07/08/18 11:19 07/08/18 11:19 07/08/18 11:19 Intake & Output 07/07/18 07/08/18 07/09/18 06:59 06:59 06:59 Intake Total 0 20 Output Total 1550 700 Balance -1550 -680 Weight 77.6 kg 76.2 kg General appearance: PRESENT: mild distress Head exam: PRESENT: atraumatic Eye exam: PRESENT: conjunctiva pink Mouth exam: PRESENT: dry mucosa Neck exam: PRESENT: carotid bruit. ABSENT: JVD Respiratory exam: PRESENT: rhonchi Cardiovascular exam: PRESENT: irregular rhythm, +S1, +S2 GI/Abdominal exam: PRESENT: normal bowel sounds, soft Extremities exam: PRESENT: tenderness Musculoskeletal exam: PRESENT: tenderness Neurological exam: PRESENT: alert, awake Psychiatric exam: PRESENT: anxious Results Laboratory Results: 07/06/18 05:39 07/06/18 10:24 07/03/18 16:15 Pleural Fluid Gram Stain - Final 07/03/18 16:15 Pleural Fluid Body Fluid Culture - Final NO AEROBIC OR ANAEROBIC ORGANISMS RECOVERED 07/01/18 07/01/18 07/02/18 03:54 03:54 16:05 Creatine Kinase 617 H 367 H NT-Pro-B Natriuret Pep 9380 H 07/03/18 07/03/18 07/04/18 08:45 08:45 03:53 Creatine Kinase 291 H NT-Pro-B Natriuret Pep 8430 H 9560 H Impressions: Abdomen/Pelvis CT 06/30/18 00:00 IMPRESSION: Fluid overload with bilateral moderate pleural effusions and small amount of ascites. Bibasilar consolidation atelectasis versus pneumonia Head CT 06/30/18 10:00 IMPRESSION: No acute intracranial pathology. No noncontrast CT findings to explain symptoms. MRI may be used to more sensitively evaluate for acute diffusion restricting infarction if suspected. EVIDENCE OF ACUTE STROKE: NO. Head MRI 07/01/18 14:54 IMPRESSION: Mild involutional changes of aging with no acute intracranial imaging findings on this slightly limited study. EVIDENCE OF ACUTE STROKE: NO. Lumbar Puncture 07/02/18 10:40 IMPRESSION: Lumbar puncture under fluoroscopy. No immediate complication. Thoracentesis Ultrasound 07/03/18 10:19 IMPRESSION: SUCCESSFUL THORACENTESIS USING ULTRASOUND GUIDANCE. Chest X-Ray 07/03/18 18:00 IMPRESSION: Stable pulmonary exam demonstrating small bilateral pleural effusions. Guidance Fluoroscopy 07/06/18 00:00 IMPRESSION: SUCCESSFUL PLACEMENT OF A 5 FR DUAL LUMEN 42 CM PICC IN THE LEFT BASILIC VEIN. Interventional Vascular Procedure 07/06/18 00:00 IMPRESSION: SUCCESSFUL PLACEMENT OF A 5 FR DUAL LUMEN 42 CM PICC IN THE LEFT BASILIC VEIN. PICC Line Insertion 07/06/18 00:00 IMPRESSION: SUCCESSFUL PLACEMENT OF A 5 FR DUAL LUMEN 42 CM PICC IN THE LEFT BASILIC VEIN. Assessment & Plan - Diagnosis (1) Altered mental status Qualifiers: Altered mental status type: delirium Qualified Code(s): R41.0 - Disorientation, unspecified Is this a current diagnosis for this admission?: Yes Plan: Stable continue current medications (2) Dehydration Is this a current diagnosis for this admission?: Yes Plan: Possible cause of hyponatremia. The patient right now is fluid overloaded. Will stop the D5 and start diuretics (3) Hypernatremia Is this a current diagnosis for this admission?: Yes (4) New onset atrial fibrillation Is this a current diagnosis for this admission?: Yes Plan: Rate controlled (5) CKD (chronic kidney disease) stage 3, GFR 30-59 ml/min Is this a current diagnosis for this admission?: Yes (6) Hypertension Qualifiers: Hypertension type: unspecified Qualified Code(s): I10 - Essential (primary ) hypertension Is this a current diagnosis for this admission?: Yes (7) Physical deconditioning Is this a current diagnosis for this admission?: Yes Plan: Will need PT OT (8) Prostate cancer Is this a current diagnosis for this admission?: Yes Plan: Stage IV with metastasis. (9) Memory loss, short term Is this a current diagnosis for this admission?: Yes (10) Acute psychosis Is this a current diagnosis for this admission?: Yes Plan: Recurrent episodes. We will start with Haldol 2 mg every 6 hours. Awaiting psych consult
[2018-07-08] MEDS: HALOPERIDOL 1 MG TABLET PO SCH (17:05)
[2018-07-08] MEDS ORDERED: HALOPERIDOL 2 MG TABLET PO SCH (18:00)
--- NOTE | 2018-07-08 21:52 | Progress Note ---
Provider Note Provider Note: Urology progress note by Dr. Nancy Haynes on 07/08/2018. SUBJECTIVE: The patient was agitated last night, and received Haldol. He is much calmer this morning. And is able to give some sort of a history. He denies any chest pain or discomfort. He continues to be in atrial fibrillation with slow ventricular response. There is no TIA or CVA symptoms. The patient denies any shortness of breath. The patient apart from being slightly drowsy. Does not seem to be in any acute distress. Today he did take his medications. He also ate some food. PHYSICAL EXAMINATION: The patient appears to be chronically ill and malnourished. At present in no acute distress. Selected Entries 07/08/18 07/08/18 10:00 11:19 Temperature 97.8 F Temperature Oral Source Pulse Rate 74 Respiratory 16 Rate Blood Pressure 130/51 H Blood Pressure 77 Mean BP Location Right Arm BP Position Supine O2 Sat by Pulse 100 Oximetry Oxygen Delivery Nasal Cannula Method ( includes room air) Oxygen Flow 2 Rate Oxygen Delivery Nasal Cannula Method HEAD: Atraumatic normocephalic. EYES: Pupils are equal round regular react to light accommodation. ENT: Is negative. NECK: Is supple. There is no JVD. Carotids equal there is no bruit. There is no lymphadenopathy. There is no goiter. There is no accessory muscles of respiration in use. Trachea central. LUNGS: Show diminished air entry in the bases with some area of tenderness which covers a small area of the bases bilaterally. The rest of the lungs are clear. There is no rhonchi rales or wheezing. HEART: S1-S2 is heard there is no S3 gallop there is no S4 gallop S1 is of variable intensity.. There is murmur of mitral regurgitation and tricuspid regurgitation present. There is no rub. ABDOMEN: Soft. Nontender there is no hepatosplenomegaly bowel sounds are well heard. EXTREMITIES: Femorals are diminished. There is no femoral bruits. Leg pulses are diminished. There is no pedal edema. There is no DVT esophagitis. There is no calf tenderness. SPEECH THERAPY ASSISTANT: The patient's slightly drowsy but moves all 4 extremities. PSYCHIATRIC exam the patient does not appear to be agitated. He appears to be calm in-depth psychiatric examination not done. IMPRESSION/RECOMMENDATION: 1.Atrial fibrillation with slow ventricular response. At present there is no need for AV stevie blocking agents. Note that the patient due to his frail build , and malnourished state, and with ongoing problems with confusion is not a candidate for chronic anticoagulation therapy. 2. ENCEPHALOPATHY: Seems to be slightly improving. 3. ELECTROLYTE IMBALANCE. Note that the patient's sodium is coming down, last known value was 148.7. 4. Dehydration. 5. Chronic kidney disease. Seems to be improving. His last GFR was greater than 60. 6. Severe mitral regurgitation: Hydralazine has been started. Will increase as tolerated by the patient. Continue amlodipine. 7. Severe pulmonary hypertension: Recommend continuing amlodipine and hydralazine. May add sildenafil later on. 8. Moderate to Severe tricuspid Regurgitation: Continue current medications. 9. Prostate cancer with bony metastasis. Medications have been reviewed, and medications adjusted. Medical decision making is of high complexity. Note that the patient is a full code, and the patient's daughter is her surrogate healthcare decision maker. Discussed management plan with attending physician on the case. 40 minutes spent on this patient with more than 50% time spent in direct patient care. We will follow with you.
[2018-07-08] MEDS: TAMSULOSIN HCL 0.4 MG CAP.SR.24H PO SCH (22:34)
[2018-07-09] MEDS: HALOPERIDOL 1 MG TABLET PO SCH ×2 (01:32→07:50)
[2018-07-09] MEDS: HEPARIN SOD (PORCINE) 5,000 UNIT/ML 1 ML SYRINGE SUBCUT SCH ×3 (05:59→22:15)
[2018-07-09] MEDS: HYDRALAZINE HCL 10 MG TABLET PO SCH (05:59)
--- NOTE | 2018-07-09 08:11 | PDOC PROGRESS REPORT ---
Subjective Progress Note for:: 07/09/18 Subjective:: Seems better, talking appropriately this am, doesn't like the taste of the food , but really wants to get up, did take in pureed foods somewhat yesterday and diet advanced to chopped meats Reason For Visit: ALTERED MENTAL STATUS,METABOLIC ENCEPHALOPATHY Physical Exam Vital Signs: Temp Pulse Resp BP Pulse Ox 98.5 F 77 17 143/53 H 100 07/09/18 07:25 07/09/18 07:25 07/09/18 07:25 07/09/18 07:25 07/09/18 07:25 Intake & Output 07/08/18 07/09/18 07/10/18 06:59 06:59 06:59 Intake Total 20 1178 Output Total 700 800 Balance -680 378 Weight 76.2 kg 91.4 kg General appearance: PRESENT: no acute distress Head exam: PRESENT: atraumatic Mouth exam: PRESENT: dry mucosa Respiratory exam: PRESENT: clear to auscultation yuliya. ABSENT: rales, rhonchi, wheezes Cardiovascular exam: PRESENT: RRR. ABSENT: diastolic murmur, rubs, systolic murmur GI/Abdominal exam: PRESENT: normal bowel sounds, soft. ABSENT: distended, guarding, mass, organolmegaly, rebound, tenderness Rectal exam: PRESENT: deferred Neurological exam: PRESENT: alert, awake, oriented to person, oriented to place Results Laboratory Results: 07/06/18 05:39 07/06/18 10:24 07/01/18 07/01/18 07/02/18 03:54 03:54 16:05 Creatine Kinase 617 H 367 H NT-Pro-B Natriuret Pep 9380 H 07/03/18 07/03/18 07/04/18 08:45 08:45 03:53 Creatine Kinase 291 H NT-Pro-B Natriuret Pep 8430 H 9560 H Impressions: Abdomen/Pelvis CT 06/30/18 00:00 IMPRESSION: Fluid overload with bilateral moderate pleural effusions and small amount of ascites. Bibasilar consolidation atelectasis versus pneumonia Head CT 06/30/18 10:00 IMPRESSION: No acute intracranial pathology. No noncontrast CT findings to explain symptoms. MRI may be used to more sensitively evaluate for acute diffusion restricting infarction if suspected. EVIDENCE OF ACUTE STROKE: NO. Head MRI 07/01/18 14:54 IMPRESSION: Mild involutional changes of aging with no acute intracranial imaging findings on this slightly limited study. EVIDENCE OF ACUTE STROKE: NO. Lumbar Puncture 07/02/18 10:40 IMPRESSION: Lumbar puncture under fluoroscopy. No immediate complication. Thoracentesis Ultrasound 07/03/18 10:19 IMPRESSION: SUCCESSFUL THORACENTESIS USING ULTRASOUND GUIDANCE. Chest X-Ray 07/03/18 18:00 IMPRESSION: Stable pulmonary exam demonstrating small bilateral pleural effusions. Guidance Fluoroscopy 07/06/18 00:00 IMPRESSION: SUCCESSFUL PLACEMENT OF A 5 FR DUAL LUMEN 42 CM PICC IN THE LEFT BASILIC VEIN. Interventional Vascular Procedure 07/06/18 00:00 IMPRESSION: SUCCESSFUL PLACEMENT OF A 5 FR DUAL LUMEN 42 CM PICC IN THE LEFT BASILIC VEIN. PICC Line Insertion 07/06/18 00:00 IMPRESSION: SUCCESSFUL PLACEMENT OF A 5 FR DUAL LUMEN 42 CM PICC IN THE LEFT BASILIC VEIN. Assessment & Plan - Diagnosis (1) Altered mental status Qualifiers: Altered mental status type: delirium Qualified Code(s): R41.0 - Disorientation, unspecified Is this a current diagnosis for this admission?: Yes Plan: Improved, apparently psych may have seen pt but don't see any notes or recommendations, but pt seems overall better (2) Difficulty swallowing liquids Is this a current diagnosis for this admission?: Yes Plan: Improving, related both to mental status and severe deconditioning both improving, will advance as tolerated, follow speech recs (3) Prostate cancer Is this a current diagnosis for this admission?: Yes Plan: Rx will con't as outpt - Time Time Spent with patient: 35 or more minutes - Inpatient Certification Based on my medical assessment, after consideration of the patient's comorbidities, presenting symptoms, or acuity I expect that the services needed warrant INPATIENT care.: Yes I certify that my determination is in accordance with my understanding of Medicare's requirements for reasonable and necessary INPATIENT services [42 CFR 412.3e].: Yes Medical Necessity: Need for Neurological Checks, Risk of Complication if Not Cared For in Hospital
--- NOTE | 2018-07-09 08:20 | PDOC PROGRESS REPORT ---
Subjective Progress Note for:: 07/09/18 Subjective:: The patient appears to be slightly better. He is less confused. He is still complaining of not being very hungry. He wants to go home for at least one day Reason For Visit: ALTERED MENTAL STATUS,METABOLIC ENCEPHALOPATHY Physical Exam Vital Signs: Temp Pulse Resp BP Pulse Ox 98.5 F 77 17 143/53 H 100 07/09/18 07:25 07/09/18 07:25 07/09/18 07:25 07/09/18 07:25 07/09/18 07:25 Intake & Output 07/08/18 07/09/18 07/10/18 06:59 06:59 06:59 Intake Total 20 1178 Output Total 700 800 Balance -680 378 Weight 76.2 kg 91.4 kg General appearance: PRESENT: mild distress Head exam: PRESENT: atraumatic Eye exam: PRESENT: conjunctiva pink Mouth exam: PRESENT: moist Neck exam: PRESENT: carotid bruit. ABSENT: JVD Respiratory exam: PRESENT: clear to auscultation yuliya Cardiovascular exam: PRESENT: irregular rhythm, +S1, +S2 GI/Abdominal exam: PRESENT: normal bowel sounds, soft Extremities exam: PRESENT: tenderness Musculoskeletal exam: PRESENT: tenderness Neurological exam: PRESENT: alert, awake Psychiatric exam: PRESENT: anxious Results Laboratory Results: 07/06/18 05:39 07/06/18 10:24 07/01/18 07/01/18 07/02/18 03:54 03:54 16:05 Creatine Kinase 617 H 367 H NT-Pro-B Natriuret Pep 9380 H 07/03/18 07/03/18 07/04/18 08:45 08:45 03:53 Creatine Kinase 291 H NT-Pro-B Natriuret Pep 8430 H 9560 H Impressions: Abdomen/Pelvis CT 06/30/18 00:00 IMPRESSION: Fluid overload with bilateral moderate pleural effusions and small amount of ascites. Bibasilar consolidation atelectasis versus pneumonia Head CT 06/30/18 10:00 IMPRESSION: No acute intracranial pathology. No noncontrast CT findings to explain symptoms. MRI may be used to more sensitively evaluate for acute diffusion restricting infarction if suspected. EVIDENCE OF ACUTE STROKE: NO. Head MRI 07/01/18 14:54 IMPRESSION: Mild involutional changes of aging with no acute intracranial imaging findings on this slightly limited study. EVIDENCE OF ACUTE STROKE: NO. Lumbar Puncture 07/02/18 10:40 IMPRESSION: Lumbar puncture under fluoroscopy. No immediate complication. Thoracentesis Ultrasound 07/03/18 10:19 IMPRESSION: SUCCESSFUL THORACENTESIS USING ULTRASOUND GUIDANCE. Chest X-Ray 07/03/18 18:00 IMPRESSION: Stable pulmonary exam demonstrating small bilateral pleural effusions. Guidance Fluoroscopy 07/06/18 00:00 IMPRESSION: SUCCESSFUL PLACEMENT OF A 5 FR DUAL LUMEN 42 CM PICC IN THE LEFT BASILIC VEIN. Interventional Vascular Procedure 07/06/18 00:00 IMPRESSION: SUCCESSFUL PLACEMENT OF A 5 FR DUAL LUMEN 42 CM PICC IN THE LEFT BASILIC VEIN. PICC Line Insertion 07/06/18 00:00 IMPRESSION: SUCCESSFUL PLACEMENT OF A 5 FR DUAL LUMEN 42 CM PICC IN THE LEFT BASILIC VEIN. Assessment & Plan - Diagnosis (1) Altered mental status Qualifiers: Altered mental status type: delirium Qualified Code(s): R41.0 - Disorientation, unspecified Is this a current diagnosis for this admission?: Yes Plan: Improving continue with current medications (2) Dehydration Is this a current diagnosis for this admission?: Yes Plan: Continue encouraging p.o. intake (3) Hypernatremia Is this a current diagnosis for this admission?: Yes Plan: Improved with diuretics (4) New onset atrial fibrillation Is this a current diagnosis for this admission?: Yes Plan: Rate controlled (5) CKD (chronic kidney disease) stage 3, GFR 30-59 ml/min Is this a current diagnosis for this admission?: Yes (6) Hypertension Qualifiers: Hypertension type: unspecified Qualified Code(s): I10 - Essential (primary ) hypertension Is this a current diagnosis for this admission?: Yes Plan: Continue current treatment (7) Physical deconditioning Is this a current diagnosis for this admission?: Yes Plan: Will need PT OT (8) Prostate cancer Is this a current diagnosis for this admission?: Yes Plan: Stage IV with metastasis. (9) Memory loss, short term Is this a current diagnosis for this admission?: Yes (10) Acute psychosis Is this a current diagnosis for this admission?: Yes Plan: Recurrent episodes. We will start with Haldol 2 mg every 6 hours. Awaiting psych consult (11) Pulmonary hypertension Is this a current diagnosis for this admission?: Yes Plan: We will continue with the cardiology recommendations
[2018-07-09] MEDS ORDERED: HYDRALAZINE HCL 10 MG TABLET PO SCH (09:12)
[2018-07-09] MEDS: AMLODIPINE BESYLATE 10 MG TABLET PO SCH (10:10)
[2018-07-09] MEDS: MULTIVITAMINS W-IRON TABLET, CHEWABLE PO SCH (10:10)
[2018-07-09] MEDS: ASPIRIN 81 MG TABLET, CHEWABLE PO SCH (10:10)
[2018-07-09] MEDS ORDERED: HALOPERIDOL 1 MG TABLET PO SCH (12:00)
[2018-07-09] MEDS: INSULIN LISPRO 100 UNIT/ML 3 ML VIAL SUBCUT PRN ×2 (13:07→16:48)
[2018-07-09] MEDS: HYDRALAZINE HCL 25 MG TABLET PO SCH ×2 (13:07→22:18)
--- NOTE | 2018-07-09 16:19 | PSYCHOLOGICAL NOTE ---
Psych Note - Psych Note Date seen by psych provider: 07/08/18 Time seen by psych provider: 15:30 Psych Note: Reason for Consult: Medication recommendations/ Psychosis, dementia Patient is orientated to place and person. It is noted that he is unable to identify the date, week, month or year however does correctly identify Thanksgiving just past. He is also on able to provide his entire birthdate only stating "[birth year] (clinician notes patient's date is 1945). Patient was also unable to correctly identify the current president stating that he the president is Britton Up. He is unable to engage in abstract thought processes or engage with memory, executive functioning or problem solving. Patient was able to correctly identify that he has high blood pressure and takes medication for that and denies thoughts of wanting to harm himself or others. Clinician notes patient is in medical distress. Head MRI 07/01/2018: Findings indicate prominence of the lateral ventricles secondary to mild cortical atrophy Medication recommendations per [facility]'s contracted psychiatrist Please discontinue Haldol and Zoloft Please start Depakote 250mg twice daily Please start Buspar 10mg twice daily Rispirdone 0.25mg twice daily as needed for agitation and aggression R/O 799.59 (R41.9) unspecified neurocognitive disorder Impression\\plan: Patient is cleared from acute psychiatric services. Patient is noted to have a possible diagnosis of dementia which is supported by both presentation and MRI results. Patient is recommended to follow-up with neurology. Prescribing physicians are asked to consider avoiding using any benzodiazepines and antipsychotics as they can increase confusion, aggression, agitation, and psychosis. Clinician notes the patient is in medical crisis and an accurate capacity cannot be conducted until stabilization. Please reconsult if new concerns arise once medically stable. Dr. Spence was consulted and the care management of this patient; attending physicians in agreement with recommendations and disposition.
[2018-07-09] MEDS ORDERED: RISPERIDONE 0.25 MG TABLET PO PRN (17:25)
[2018-07-09] MEDS: BUSPIRONE HCL 10 MG TABLET PO SCH (19:03)
[2018-07-09] MEDS: DIVALPROEX SODIUM 250 MG TABLET.DR PO SCH (19:03)
[2018-07-09] MEDS: TAMSULOSIN HCL 0.4 MG CAP.SR.24H PO SCH (22:18)
--- NOTE | 2018-07-09 23:04 | Progress Note ---
Provider Note Provider Note: CARDIOLOGY PROGRESS NOTES by Dr. Nancy Haynes on 07/09/2018. SUBJECTIVE: The patient appears to be less confused but still not able to give any history meaningfully. He denies chest pain or discomfort. He had a short few beats of nonsustained ventricular tachycardia yesterday and had no symptoms and there was no hemodynamic compromise. There is no recurrence of the nonsustained. There is no leg edema. No syncopal episodes noted. Ventricular tachycardia. He moves all 4 extremities. PHYSICAL EXAMINATION: The patient is a frail build, and appears to be chronically ill. But in spite of this he does not appear to be in any acute distress. 07/08/18 07/09/18 10:00 11:51 Temperature 98.4 F Temperature Oral Source Pulse Rate 77 Respiratory 16 Rate Blood Pressure 137/52 H [Upper Arm] Blood Pressure 80 Mean [Upper Arm ] Blood Pressure Supine Position [Upper Arm] O2 Sat by Pulse 100 Oximetry Oxygen Delivery Nasal Cannula Nasal Cannula Method ( includes room air) Oxygen Flow 2 Rate HEAD: Atraumatic normocephalic. EYES: Pupils are equal round regular react to light accommodation. ENT: Is negative. NECK: Is supple. There is no JVD. Carotids equal there is no bruit. There is no lymphadenopathy. There is no goiter. There is no accessory muscles of respiration in use. Trachea central. LUNGS: Show diminished air entry in the bases with some area of tenderness which covers a small area of the bases bilaterally. The rest of the lungs are clear. There is no rhonchi rales or wheezing. HEART: S1-S2 is heard there is no S3 gallop there is no S4 gallop S1 is of variable intensity.. There is murmur of mitral regurgitation and tricuspid regurgitation present. There is no rub. ABDOMEN: Soft. Nontender there is no hepatosplenomegaly bowel sounds are well heard. EXTREMITIES: Femorals are diminished. There is no femoral bruits. Leg pulses are diminished. There is no pedal edema. There is no DVT esophagitis. There is no calf tenderness. [employer]: The patient's slightly drowsy but moves all 4 extremities. PSYCHIATRIC exam the patient does not appear to be agitated. He appears to be calm in-depth psychiatric examination not done. IMPRESSION/RECOMMENDATION: 1.Atrial fibrillation with slow ventricular response. At present there is no need for AV stevie blocking agents. Note that the patient due to his frail build , and malnourished state, and with ongoing problems with confusion is not a candidate for chronic anticoagulation therapy. 2. ENCEPHALOPATHY: Seems to be slightly improving. 3. ELECTROLYTE IMBALANCE. Note that the patient's sodium is coming down, last known value was 148.7. 4. Dehydration. 5. Chronic kidney disease. Seems to be improving. His last GFR was greater than 60. 6. Severe mitral regurgitation: Hydralazine has been started. Will increase as tolerated by the patient. Continue amlodipine. 7. Severe pulmonary hypertension: Recommend continuing amlodipine and hydralazine has been increased. May add sildenafil later on. 8. Moderate to Severe tricuspid Regurgitation: Continue current medications. 9. Prostate cancer with bony metastasis. 07/09/18 07/09/18 07/09/18 06:27 11:18 16:26 POC Glucose 172 H 220 H 187 H MEDICATIONS reviewed. Note hydralazine was increased by me today. Discussed with attending physician, the management plan. 40 minutes spent on this patient more than 50% of time spent in direct patient care. Medical decision making continues to be of high complexity. Will hold off on sildenafil until blood pressure response to use hydralazine increase is known. We will follow with you.
[2018-07-10] MEDS: HEPARIN SOD (PORCINE) 5,000 UNIT/ML 1 ML SYRINGE SUBCUT SCH ×3 (05:10→22:08)
[2018-07-10 05:35] LABS: HEMOGLOBIN 9.1 g/dL (13.5-17.0); MEAN CORPUSCULAR HEMOGLOBIN 25.4 pg (27.0-33.4); MEAN CORPUSCULAR HGB CONC 32.6 g/dL (32.0-36.0); MEAN CORPUSCULAR VOLUME 78 fl (80-97); PLATELET COUNT 155 10^3/uL (150-450); RED BLOOD COUNT 3.59 10^6/uL (4.35-5.55); RED CELL DISTRIBUTION WIDTH 18.5 % (11.5-14.0); WHITE BLOOD COUNT 11.1 10^3/uL (4.0-10.5)
[2018-07-10] MEDS: HYDRALAZINE HCL 25 MG TABLET PO SCH ×3 (05:45→22:09)
[2018-07-10 06:09] LABS: ALANINE AMINOTRANSFERASE 60 U/L (21-72); ALBUMIN 2.6 g/dL (3.5-5.0); ALKALINE PHOSPHATASE 513 U/L (38-126); ANION GAP 11 (5-19); ASPARTATE AMINO TRANSFERASE 135 U/L (17-59); BILIRUBIN,DIRECT 0.4 mg/dL (0.0-0.4); BILIRUBIN,TOTAL 0.5 mg/dL (0.2-1.3); BLOOD UREA NITROGEN 20 mg/dL (7-20); CALCIUM 7.6 mg/dL (8.4-10.2); CARBON DIOXIDE 23 mmol/L (22-30); CHLORIDE 113 mmol/L (98-107); GLUCOSE 159 mg/dL (75-110); POTASSIUM 3.3 mmol/L (3.6-5.0); SODIUM 146.8 mmol/L (137-145); TOTAL PROTEIN 5.4 g/dL (6.3-8.2)
[2018-07-10 06:15] LABS: ABSOLUTE LYMPHOCYTES# (MANUAL) 1.8 10^3/uL (0.5-4.7); ABSOLUTE MONOCYTES # (MANUAL) 0.6 10^3/uL (0.1-1.4); ABSOLUTE NEUTROPHILS# (MANUAL) 8.8 10^3/uL (1.7-8.2); ANISOCYTOSIS 1+; BASOPHILS % (MANUAL) 0 % (0-2); EOSINOPHILS % (MANUAL) 0 % (0-6); LYMPHOCYTES % (MANUAL) 16 % (13-45); MONOCYTES % (MANUAL) 5 % (3-13); PLATELET COMMENT ADEQUATE; POLYCHROMASIA 1+; SEGMENTED NEUTROPHILS % (MAN) 79 % (42-78); TOTAL CELLS COUNTED 100
[2018-07-10] MEDS: AMLODIPINE BESYLATE 10 MG TABLET PO SCH (09:48)
[2018-07-10] MEDS: MULTIVITAMINS W-IRON TABLET, CHEWABLE PO SCH (09:48)
[2018-07-10] MEDS: BUSPIRONE HCL 10 MG TABLET PO SCH ×2 (09:48→18:30)
[2018-07-10] MEDS: ASPIRIN 81 MG TABLET, CHEWABLE PO SCH (09:49)
[2018-07-10] MEDS: INSULIN LISPRO 100 UNIT/ML 3 ML VIAL SUBCUT PRN ×3 (09:49→19:32)
[2018-07-10] MEDS: DIVALPROEX SODIUM 250 MG TABLET.DR PO SCH ×2 (09:49→18:30)
--- NOTE | 2018-07-10 11:25 | PDOC PROGRESS REPORT ---
Subjective Progress Note for:: 07/10/18 Subjective:: Yesterday patient was able to sit in a chair and with assistance walked a few feet, feels like his legs feel "heavy", but he does have his Steve catheter strapped with the bag to his right leg, he seems mentally aware and is having appropriate use of the bedpan, so we discussed getting his Steve out. Yesterday only ate a few bites of food, so we discussed the use of Megace today. Reason For Visit: ALTERED MENTAL STATUS,METABOLIC ENCEPHALOPATHY Physical Exam Vital Signs: Temp Pulse Resp BP Pulse Ox 98.4 F 82 20 147/78 H 100 07/10/18 08:11 07/10/18 08:11 07/10/18 08:11 07/10/18 08:11 07/10/18 08:11 Intake & Output 07/09/18 07/10/18 07/11/18 06:59 06:59 06:59 Intake Total 1178 1584 Output Total 800 750 Balance 378 834 Weight 91.4 kg 90.3 kg General appearance: PRESENT: no acute distress, well-developed, well-nourished Head exam: PRESENT: atraumatic, normocephalic Eye exam: PRESENT: conjunctiva pink, EOMI, PERRLA. ABSENT: scleral icterus Ear exam: PRESENT: normal external ear exam Mouth exam: PRESENT: moist, tongue midline Neck exam: ABSENT: carotid bruit, JVD, lymphadenopathy, thyromegaly Respiratory exam: PRESENT: clear to auscultation yuliya. ABSENT: rales, rhonchi, wheezes Cardiovascular exam: PRESENT: RRR. ABSENT: diastolic murmur, rubs, systolic murmur Pulses: PRESENT: normal dorsalis pedis pul Vascular exam: PRESENT: normal capillary refill GI/Abdominal exam: PRESENT: normal bowel sounds, soft. ABSENT: distended, guarding, mass, organolmegaly, rebound, tenderness Rectal exam: PRESENT: deferred Extremities exam: PRESENT: full ROM. ABSENT: calf tenderness, clubbing, pedal edema Neurological exam: PRESENT: alert, awake, oriented to person, oriented to place , oriented to time, oriented to situation, CN II-XII grossly intact. ABSENT: motor sensory deficit Psychiatric exam: PRESENT: appropriate affect, normal mood. ABSENT: homicidal ideation, suicidal ideation Skin exam: PRESENT: dry, intact, warm. ABSENT: cyanosis, rash Results Laboratory Results: 07/10/18 04:46 07/10/18 04:46 07/10/18 07/10/18 04:46 04:46 WBC 11.1 H RBC 3.59 L Hgb 9.1 L Hct 28.0 L MCV 78 L MCH 25.4 L MCHC 32.6 RDW 18.5 H Plt Count 155 Seg Neutrophils % CLINICAL PSYCHOLOGIST LICENSED Lymphocytes % CLINICAL PSYCHOLOGIST LICENSED Monocytes % CLINICAL PSYCHOLOGIST LICENSED Eosinophils % CLINICAL PSYCHOLOGIST LICENSED Basophils % CLINICAL PSYCHOLOGIST LICENSED Absolute Neutrophils CLINICAL PSYCHOLOGIST LICENSED Absolute Lymphocytes CLINICAL PSYCHOLOGIST LICENSED Absolute Monocytes CLINICAL PSYCHOLOGIST LICENSED Absolute Eosinophils CLINICAL PSYCHOLOGIST LICENSED Absolute Basophils CLINICAL PSYCHOLOGIST LICENSED Sodium 146.8 H Potassium 3.3 L Chloride 113 H Carbon Dioxide 23 Anion Gap 11 BUN 20 Creatinine 1.10 Est GFR ( Amer) > 60 Est GFR (Non-Af Amer) > 60 Glucose 159 H Calcium 7.6 L Total Bilirubin 0.5 AST 135 H ALT 60 Alkaline Phosphatase 513 H Total Protein 5.4 L Albumin 2.6 L 07/01/18 07/01/18 07/02/18 03:54 03:54 16:05 Creatine Kinase 617 H 367 H NT-Pro-B Natriuret Pep 9380 H 07/03/18 07/03/18 07/04/18 08:45 08:45 03:53 Creatine Kinase 291 H NT-Pro-B Natriuret Pep 8430 H 9560 H Impressions: Abdomen/Pelvis CT 06/30/18 00:00 IMPRESSION: Fluid overload with bilateral moderate pleural effusions and small amount of ascites. Bibasilar consolidation atelectasis versus pneumonia Head CT 06/30/18 10:00 IMPRESSION: No acute intracranial pathology. No noncontrast CT findings to explain symptoms. MRI may be used to more sensitively evaluate for acute diffusion restricting infarction if suspected. EVIDENCE OF ACUTE STROKE: NO. Head MRI 07/01/18 14:54 IMPRESSION: Mild involutional changes of aging with no acute intracranial imaging findings on this slightly limited study. EVIDENCE OF ACUTE STROKE: NO. Lumbar Puncture 07/02/18 10:40 IMPRESSION: Lumbar puncture under fluoroscopy. No immediate complication. Thoracentesis Ultrasound 07/03/18 10:19 IMPRESSION: SUCCESSFUL THORACENTESIS USING ULTRASOUND GUIDANCE. Chest X-Ray 07/03/18 18:00 IMPRESSION: Stable pulmonary exam demonstrating small bilateral pleural effusions. Guidance Fluoroscopy 07/06/18 00:00 IMPRESSION: SUCCESSFUL PLACEMENT OF A 5 FR DUAL LUMEN 42 CM PICC IN THE LEFT BASILIC VEIN. Interventional Vascular Procedure 07/06/18 00:00 IMPRESSION: SUCCESSFUL PLACEMENT OF A 5 FR DUAL LUMEN 42 CM PICC IN THE LEFT BASILIC VEIN. PICC Line Insertion 07/06/18 00:00 IMPRESSION: SUCCESSFUL PLACEMENT OF A 5 FR DUAL LUMEN 42 CM PICC IN THE LEFT BASILIC VEIN. Assessment & Plan - Diagnosis (1) Altered mental status Qualifiers: Altered mental status type: delirium Qualified Code(s): R41.0 - Disorientation, unspecified Is this a current diagnosis for this admission?: Yes Plan: Improving, hopefully will continue to improve. (2) Difficulty swallowing liquids Is this a current diagnosis for this admission?: Yes Plan: Proved, secondary to dementia (3) Prostate cancer Is this a current diagnosis for this admission?: Yes Plan: For further treatment as an outpatient (4) Malnutrition Qualifiers: Malnutrition type: protein-calorie malnutrition Protein-calorie malnutrition severity: moderate Qualified Code(s): E44.0 - Moderate protein- calorie malnutrition Is this a current diagnosis for this admission?: Yes Plan: Secondary to dementia, and poor p.o. intake, need to continue to encourage patient to eat, use of boost supplement, will add Megace for appetite stimulation. Today I had a long discussion with the patient, and we discussed his case with family over the last 24 hours, spent 45 minutes in discussion and coordination of care - Time Time Spent with patient: 35 or more minutes - Inpatient Certification Based on my medical assessment, after consideration of the patient's comorbidities, presenting symptoms, or acuity I expect that the services needed warrant INPATIENT care.: Yes I certify that my determination is in accordance with my understanding of Medicare's requirements for reasonable and necessary INPATIENT services [42 CFR 412.3e].: Yes Medical Necessity: Need for Neurological Checks, Risk of Complication if Not Cared For in Hospital
[2018-07-10] MEDS: MEGESTROL ACETATE SUSP 400 MG/10 ML UDCUP PO SCH (12:12)
[2018-07-10] MEDS ORDERED: POTASSIUM CHLORIDE 20 MEQ/15 ML UDCUP PO ONE ×2 (13:04→15:45)
[2018-07-10] MEDS: APIXABAN 2.5 MG TABLET PO SCH ×2 (15:39→18:29)
--- NOTE | 2018-07-10 16:01 | PDOC PROGRESS REPORT ---
Subjective Progress Note for:: 07/10/18 Subjective:: Charles Kaur is a 72-year-old male who was admitted with decreased mental status and confusion. He has gradually been improving over an extended hospital course. He has stage IV prostate cancer and is planning on getting appropriate treatment once he can be discharged from our institution. He states that he is feeling much better today and to a brief mental status exam he is alert and oriented with fair short-term and good long-term memory. He is capable of higher level mental function and is very specifically conversant as he discusses the problems that he has had recently. He would like to be seen by speech therapy, physical therapy and occupational therapy. He would also like to have his Steve catheter discontinued as soon as possible. He is interested in starting on Megace to help improve his appetite as recommended by Dr. Eason. Reason For Visit: ALTERED MENTAL STATUS,METABOLIC ENCEPHALOPATHY Physical Exam Vital Signs: Temp Pulse Resp BP Pulse Ox 98.4 F 80 20 147/78 H 100 07/10/18 08:11 07/10/18 14:00 07/10/18 08:11 07/10/18 08:11 07/10/18 08:11 Intake & Output 07/08/18 07/09/18 07/10/18 23:59 23:59 23:59 Intake Total 1098 1018 666 Output Total 600 850 400 Balance 498 168 266 Weight 76.2 kg 91.4 kg 90.3 kg General appearance: PRESENT: no acute distress, cooperative Head exam: PRESENT: atraumatic, normocephalic Eye exam: PRESENT: conjunctiva pink, EOMI Ear exam: PRESENT: normal external ear exam. ABSENT: bleeding Mouth exam: PRESENT: neck supple, other - Oral mucosa is moist and intact, there is mild depression of the left nasolabial fold. Neck exam: ABSENT: JVD, tracheal deviation Respiratory exam: PRESENT: clear to auscultation yuliya, symmetrical, unlabored Cardiovascular exam: PRESENT: RRR, systolic murmur, other - Frequent irregular beats. ABSENT: clicks, gallop, rubs Vascular exam: PRESENT: normal capillary refill. ABSENT: pallor GI/Abdominal exam: PRESENT: normal bowel sounds, soft Rectal exam: PRESENT: deferred Extremities exam: ABSENT: joint swelling, pedal edema Musculoskeletal exam: ABSENT: deformity, dislocation Neurological exam: PRESENT: alert, oriented to person, oriented to place, oriented to time, oriented to situation, motor sensory deficit - There is a mild left hemiparesis noted Psychiatric exam: PRESENT: appropriate affect, normal mood Skin exam: ABSENT: jaundice, rash, urticaria Results Laboratory Results: 07/10/18 04:46 07/10/18 04:46 07/10/18 07/10/18 04:46 04:46 WBC 11.1 H RBC 3.59 L Hgb 9.1 L Hct 28.0 L MCV 78 L MCH 25.4 L MCHC 32.6 RDW 18.5 H Plt Count 155 Seg Neutrophils % [employer] Lymphocytes % [employer] Monocytes % [employer] Eosinophils % [employer] Basophils % [employer] Absolute Neutrophils [employer]ATE Absolute Lymphocytes [employer]IATE Absolute Monocytes [employer]ATION [employer]IATE Absolute Eosinophils [employer]ATE Absolute Basophils [employer] Sodium 146.8 H Potassium 3.3 L Chloride 113 H Carbon Dioxide 23 Anion Gap 11 BUN 20 Creatinine 1.10 Est GFR ( Amer) > 60 Est GFR (Non-Af Amer) > 60 Glucose 159 H Calcium 7.6 L Total Bilirubin 0.5 AST 135 H ALT 60 Alkaline Phosphatase 513 H Total Protein 5.4 L Albumin 2.6 L 07/01/18 07/01/18 07/02/18 03:54 03:54 16:05 Creatine Kinase 617 H 367 H NT-Pro-B Natriuret Pep 9380 H 07/03/18 07/03/18 07/04/18 08:45 08:45 03:53 Creatine Kinase 291 H NT-Pro-B Natriuret Pep 8430 H 9560 H Impressions: Abdomen/Pelvis CT 06/30/18 00:00 IMPRESSION: Fluid overload with bilateral moderate pleural effusions and small amount of ascites. Bibasilar consolidation atelectasis versus pneumonia Head CT 06/30/18 10:00 IMPRESSION: No acute intracranial pathology. No noncontrast CT findings to explain symptoms. MRI may be used to more sensitively evaluate for acute diffusion restricting infarction if suspected. EVIDENCE OF ACUTE STROKE: NO. Head MRI 07/01/18 14:54 IMPRESSION: Mild involutional changes of aging with no acute intracranial imaging findings on this slightly limited study. EVIDENCE OF ACUTE STROKE: NO. Lumbar Puncture 07/02/18 10:40 IMPRESSION: Lumbar puncture under fluoroscopy. No immediate complication. Thoracentesis Ultrasound 07/03/18 10:19 IMPRESSION: SUCCESSFUL THORACENTESIS USING ULTRASOUND GUIDANCE. Chest X-Ray 07/03/18 18:00 IMPRESSION: Stable pulmonary exam demonstrating small bilateral pleural effusions. Guidance Fluoroscopy 07/06/18 00:00 IMPRESSION: SUCCESSFUL PLACEMENT OF A 5 FR DUAL LUMEN 42 CM PICC IN THE LEFT BASILIC VEIN. Interventional Vascular Procedure 07/06/18 00:00 IMPRESSION: SUCCESSFUL PLACEMENT OF A 5 FR DUAL LUMEN 42 CM PICC IN THE LEFT BASILIC VEIN. PICC Line Insertion 07/06/18 00:00 IMPRESSION: SUCCESSFUL PLACEMENT OF A 5 FR DUAL LUMEN 42 CM PICC IN THE LEFT BASILIC VEIN. Assessment & Plan - Diagnosis (1) Altered mental status Qualifiers: Altered mental status type: delirium Qualified Code(s): R41.0 - Disorientation, unspecified Is this a current diagnosis for this admission?: Yes Plan: Patient's mental status is improving with current treatment. He seems to be at a fairly stable point that he feels is reflective of his baseline. I will try to avoid utilization of any drugs that may cause degradation in his current mental status. (2) New onset atrial fibrillation Is this a current diagnosis for this admission?: Yes Plan: Patient's atrial fibrillation is being treated by Dr. Haynes and is currently quite stable. (3) Prostate cancer Is this a current diagnosis for this admission?: Yes Plan: Patient's prostate cancer will be managed by Dr. Eason. He will be started on Megace per Dr. Eason's preference. (4) Hypokalemia Is this a current diagnosis for this admission?: Yes Plan: 07/10/2018: Potassium was noted to be 3.3 today and it will be corrected with oral supplementation. - Time Time Spent with patient: 15-24 minutes Medications reviewed and adjusted accordingly: Yes
[2018-07-10] MEDS: TAMSULOSIN HCL 0.4 MG CAP.SR.24H PO SCH (22:09)
--- NOTE | 2018-07-10 23:44 | Progress Note ---
Provider Note Provider Note: CARDIOLOGY PROGRESS NOTES by Dr. Nancy Haynes on 07/10/2018. SUBJECTIVE: The patient's confusion has resolved totally. He is now able to give history. He denies any chest pain or discomfort, there is no PND orthopnea, there is no shortness of breath. There is no TIA or CVA symptoms. Denies chest pain or discomfort. He had a short few beats of nonsustained ventricular tachycardia yesterday and had no symptoms and there was no hemodynamic compromise. There is no recurrence of the nonsustained. There is no leg edema. No syncopal episodes noted. Ventricular tachycardia. He moves all 4 extremities. PHYSICAL EXAMINATION: The patient is a frail build, and appears to be chronically ill. But in spite of this he does not appear to be in any acute distress. Selected Entries 07/10/18 11:53 Temperature 97.4 F Temperature Oral Source Pulse Rate 81 Respiratory 18 Rate Blood Pressure 128/47 H Blood Pressure 74 Mean BP Location Right Arm BP Position Supine O2 Sat by Pulse 100 Oximetry Oxygen Flow 2.00 Rate Oxygen Delivery Nasal Cannula Method HEAD: Atraumatic normocephalic. EYES: Pupils are equal round regular react to light accommodation. ENT: Is negative. NECK: Is supple. There is no JVD. Carotids equal there is no bruit. There is no lymphadenopathy. There is no goiter. There is no accessory muscles of respiration in use. Trachea central. LUNGS: Show diminished air entry in the bases with some area of tenderness which covers a small area of the bases bilaterally. The rest of the lungs are clear. There is no rhonchi rales or wheezing. HEART: S1-S2 is heard there is no S3 gallop there is no S4 gallop S1 is of variable intensity.. There is murmur of mitral regurgitation and tricuspid regurgitation present. There is no rub. ABDOMEN: Soft. Nontender there is no hepatosplenomegaly bowel sounds are well heard. EXTREMITIES: Femorals are diminished. There is no femoral bruits. Leg pulses are diminished. There is no pedal edema. There is no DVT esophagitis. There is no calf tenderness. BEAUTY THERAPIST: The patient's slightly drowsy but moves all 4 extremities. PSYCHIATRIC exam the patient does not appear to be agitated. He appears to be calm in-depth psychiatric examination not done. 12/01/18 12/01/18 04:46 04:46 WBC 11.1 H Hgb 9.1 L Hct 28.0 L Plt Count 155 Sodium 146.8 H Potassium 3.3 L Chloride 113 H Carbon Dioxide 23 BUN 20 Creatinine 1.10 Est GFR (Non-Af Amer) > 60 Glucose 159 H Calcium 7.6 L Total Bilirubin 0.5 Direct Bilirubin 0.4 Neonat Total Bilirubin Not Reportable Neonat Direct Bilirubin Not Reportable Neonat Indirect Bili Not Reportable AST 135 H ALT 60 Alkaline Phosphatase 513 H IMPRESSION/RECOMMENDATION: 1.Atrial fibrillation with slow ventricular response. At present there is no need for AV stevie blocking agents. Note that the patient due to his frail build , and malnourished state, and with ongoing problems with confusion is not a candidate for chronic anticoagulation therapy. 2. ENCEPHALOPATHY: Seems to be slightly improving. 3. ELECTROLYTE IMBALANCE. Note that the patient's sodium is coming down, last known value was 148.7. 4. Dehydration. 5. Chronic kidney disease. Seems to be improving. His last GFR was greater than 60. 6. Severe mitral regurgitation: Hydralazine has been started. Will increase as tolerated by the patient. Continue amlodipine. 7. Severe pulmonary hypertension: Recommend continuing amlodipine and hydralazine has been increased. May add sildenafil later on. 8. Moderate to Severe tricuspid Regurgitation: Continue current medications. 9. Prostate cancer with bony metastasis. MEDICATIONS reviewed. Note hydralazine was increased by me today. Discussed with attending physician, the management plan. 40 minutes spent on this patient more than 50% of time spent in direct patient care. Medical decision making continues to be of high complexity. Data discussed with the patient's daughter about the starting of Eliquis, and the indications and the benefits and side effects including bleeding complications were discussed. IMPRESSION/RECOMMENDATION: 1.Atrial fibrillation with slow ventricular response. At present there is no need for AV stevie blocking agents. Note that the patient's confusion has completely resolved. Also discussed with Dr. Hermann mathis. In view of the patient's cancer, and the patient atrial fibrillation, he benefits from chronic anticoagulation, with the benefits being more than the risks of chronic anticoagulation. Later we will speak to the patient's daughter. 2. ENCEPHALOPATHY: Resolved 3. ELECTROLYTE IMBALANCE. Note that the patient's sodium is coming down, last known value was 148.7. 4. Dehydration. Patient has been rehydrated. 5. Chronic kidney disease. Seems to be improving. His last GFR was greater than 60. His decreased GFR most likely secondary to dehydration. At present renal function is normal 6. Severe mitral regurgitation: Hydralazine has been started. Will increase as tolerated by the patient. Continue amlodipine. 7. Severe pulmonary hypertension: Recommend continuing amlodipine and hydralazine has been increased. May add sildenafil later on. 8. Moderate to Severe tricuspid Regurgitation: Continue current medications. 9. Prostate cancer with bony metastasis.
[2018-07-11] MEDS: HEPARIN SOD (PORCINE) 5,000 UNIT/ML 1 ML SYRINGE SUBCUT SCH (05:23)
[2018-07-11] MEDS: HYDRALAZINE HCL 25 MG TABLET PO SCH ×3 (05:24→22:18)
[2018-07-11] MEDS: DIVALPROEX SODIUM 250 MG TABLET.DR PO SCH ×3 (09:02→18:48)
[2018-07-11] MEDS: AMLODIPINE BESYLATE 10 MG TABLET PO SCH (09:03)
[2018-07-11] MEDS: ASPIRIN 81 MG TABLET, CHEWABLE PO SCH (09:03)
[2018-07-11] MEDS: MULTIVITAMINS W-IRON TABLET, CHEWABLE PO SCH (09:03)
[2018-07-11] MEDS: APIXABAN 2.5 MG TABLET PO SCH ×3 (09:03→18:48)
[2018-07-11] MEDS: BUSPIRONE HCL 10 MG TABLET PO SCH ×3 (09:03→18:47)
[2018-07-11] MEDS: INSULIN LISPRO 100 UNIT/ML 3 ML VIAL SUBCUT PRN ×3 (09:04→17:43)
[2018-07-11] MEDS: MEGESTROL ACETATE SUSP 400 MG/10 ML UDCUP PO SCH (09:04)
--- NOTE | 2018-07-11 16:41 | PDOC PROGRESS REPORT ---
Subjective Progress Note for:: 07/11/18 Subjective:: Charles Kaur is a 72-year-old male who was admitted with decreased mental status and confusion. He has gradually been improving over an extended hospital course. He has stage IV prostate cancer and is planning on getting appropriate treatment once he can be discharged from our institution. He states that he is feeling much better today and to a brief mental status exam he is alert and oriented with fair short-term and good long-term memory. He is capable of higher level mental function and is very specifically conversant as he discusses the problems that he has had recently. He would like to be seen by speech therapy, physical therapy and occupational therapy. He would also like to have his Steve catheter discontinued as soon as possible. He is interested in starting on Megace to help improve his appetite as recommended by Dr. Eason. 07/11/2018: Mr. Kaur continues to improve on a daily basis. He is up in a chair today and feeling very alert and oriented. He has been eating a little better and drinking more fluids. He has been able to void and denies constipation. He is looking forward to Dr. Milian his return tomorrow. Reason For Visit: ALTERED MENTAL STATUS,METABOLIC ENCEPHALOPATHY Physical Exam Vital Signs: Temp Pulse Resp BP Pulse Ox 98.1 F 87 16 116/40 L 100 07/11/18 11:20 07/11/18 14:00 07/11/18 11:20 07/11/18 11:20 07/11/18 11:20 Intake & Output 07/09/18 07/10/18 07/11/18 23:59 23:59 23:59 Intake Total 1018 1348 655 Output Total 850 900 200 Balance 168 448 455 Weight 91.4 kg 90.3 kg 90.3 kg General appearance: PRESENT: no acute distress, cooperative Head exam: PRESENT: atraumatic, normocephalic Eye exam: PRESENT: conjunctiva pale, EOMI Ear exam: PRESENT: normal external ear exam. ABSENT: drainage Mouth exam: PRESENT: neck supple, other - Oral mucosa is moist and intact Neck exam: ABSENT: JVD, tracheal deviation Respiratory exam: PRESENT: clear to auscultation yuliya, symmetrical, unlabored Cardiovascular exam: PRESENT: irregular rhythm - Irregularly irregular rate and rhythm, systolic murmur - Mitral insufficiency. ABSENT: clicks, gallop, rubs Vascular exam: PRESENT: normal capillary refill. ABSENT: pallor GI/Abdominal exam: PRESENT: normal bowel sounds, soft Rectal exam: PRESENT: deferred Extremities exam: ABSENT: joint swelling, pedal edema Musculoskeletal exam: ABSENT: deformity, dislocation Neurological exam: PRESENT: alert, oriented to person, oriented to place, oriented to time Psychiatric exam: PRESENT: appropriate affect, normal mood Skin exam: PRESENT: dry, intact, warm Results Laboratory Results: 07/10/18 04:46 07/10/18 04:46 07/01/18 07/01/18 07/02/18 03:54 03:54 16:05 Creatine Kinase 617 H 367 H NT-Pro-B Natriuret Pep 9380 H 07/03/18 07/03/18 07/04/18 08:45 08:45 03:53 Creatine Kinase 291 H NT-Pro-B Natriuret Pep 8430 H 9560 H Impressions: Abdomen/Pelvis CT 06/30/18 00:00 IMPRESSION: Fluid overload with bilateral moderate pleural effusions and small amount of ascites. Bibasilar consolidation atelectasis versus pneumonia Head CT 06/30/18 10:00 IMPRESSION: No acute intracranial pathology. No noncontrast CT findings to explain symptoms. MRI may be used to more sensitively evaluate for acute diffusion restricting infarction if suspected. EVIDENCE OF ACUTE STROKE: NO. Head MRI 07/01/18 14:54 IMPRESSION: Mild involutional changes of aging with no acute intracranial imaging findings on this slightly limited study. EVIDENCE OF ACUTE STROKE: NO. Lumbar Puncture 07/02/18 10:40 IMPRESSION: Lumbar puncture under fluoroscopy. No immediate complication. Thoracentesis Ultrasound 07/03/18 10:19 IMPRESSION: SUCCESSFUL THORACENTESIS USING ULTRASOUND GUIDANCE. Chest X-Ray 07/03/18 18:00 IMPRESSION: Stable pulmonary exam demonstrating small bilateral pleural effusions. Guidance Fluoroscopy 07/06/18 00:00 IMPRESSION: SUCCESSFUL PLACEMENT OF A 5 FR DUAL LUMEN 42 CM PICC IN THE LEFT BASILIC VEIN. Interventional Vascular Procedure 07/06/18 00:00 IMPRESSION: SUCCESSFUL PLACEMENT OF A 5 FR DUAL LUMEN 42 CM PICC IN THE LEFT BASILIC VEIN. PICC Line Insertion 07/06/18 00:00 IMPRESSION: SUCCESSFUL PLACEMENT OF A 5 FR DUAL LUMEN 42 CM PICC IN THE LEFT BASILIC VEIN. Assessment & Plan - Diagnosis (1) Altered mental status Qualifiers: Altered mental status type: delirium Qualified Code(s): R41.0 - Disorientation, unspecified Is this a current diagnosis for this admission?: Yes Plan: Patient's mental status is improving with current treatment. He seems to be at a fairly stable point that he feels is reflective of his baseline. I will try to avoid utilization of any drugs that may cause degradation in his current mental status. (2) New onset atrial fibrillation Is this a current diagnosis for this admission?: Yes Plan: Patient's atrial fibrillation is being treated by Dr. Haynes and is currently quite stable. (3) Prostate cancer Is this a current diagnosis for this admission?: Yes Plan: Patient's prostate cancer will be managed by Dr. Eason. He will be started on Megace per Dr. Eason's preference. (4) Hypokalemia Is this a current diagnosis for this admission?: Yes Plan: 07/10/2018: Potassium was noted to be 3.3 today and it will be corrected with oral supplementation. 07/11/2018: We will recheck metabolic profile in a.m. - Time Time Spent with patient: 15-24 minutes Medications reviewed and adjusted accordingly: No
[2018-07-11 18:42] LABS: ALANINE AMINOTRANSFERASE 51 U/L (21-72); ALBUMIN 2.6 g/dL (3.5-5.0); ALKALINE PHOSPHATASE 541 U/L (38-126); ANION GAP 11 (5-19); ASPARTATE AMINO TRANSFERASE 213 U/L (17-59); BILIRUBIN,DIRECT 0.5 mg/dL (0.0-0.4); BILIRUBIN,TOTAL 0.7 mg/dL (0.2-1.3); BLOOD UREA NITROGEN 25 mg/dL (7-20); CALCIUM 7.6 mg/dL (8.4-10.2); CARBON DIOXIDE 21 mmol/L (22-30); CHLORIDE 111 mmol/L (98-107); GLUCOSE 193 mg/dL (75-110); SODIUM 143.2 mmol/L (137-145); TOTAL PROTEIN 5.5 g/dL (6.3-8.2)
[2018-07-11] MEDS: TAMSULOSIN HCL 0.4 MG CAP.SR.24H PO SCH (22:18)
--- NOTE | 2018-07-11 23:03 | Progress Note ---
Provider Note Provider Note: CARDIOLOGY PROGRESS NOTES by Dr. Nancy Haynes on 07/11/2018. SUBJECTIVE: The patient appears to be awake alert and oriented x3 at present.. He denies chest pain or discomfort. He denies any shortness of breath there is no recurrence of the nonsustainedVentricular tachycardia. There is no leg edema. No syncopal episodes noted. . He is awake alert oriented x3 and he moves all 4 extremities. No bleeding on Eliquis. There is no leg edema. PHYSICAL EXAMINATION: The patient is a frail build, and appears to be chronically ill. But in spite of this he does not appear to be in any acute distress. Selected Entries 07/11/18 07/11/18 10:00 11:20 Temperature 98.1 F Temperature Oral Source Pulse Rate 95 Respiratory 16 Rate Blood Pressure 116/40 L Blood Pressure 65 Mean BP Location Left Arm BP Position Sitting O2 Sat by Pulse 100 Oximetry Oxygen Flow 2 Rate Oxygen Delivery Nasal Cannula Method HEAD: Atraumatic normocephalic. EYES: Pupils are equal round regular react to light accommodation. ENT: Is negative. NECK: Is supple. There is no JVD. Carotids equal there is no bruit. There is no lymphadenopathy. There is no goiter. There is no accessory muscles of respiration in use. Trachea central. LUNGS: Show diminished air entry in the bases with some area of tenderness which covers a small area of the bases bilaterally. The rest of the lungs are clear. There is no rhonchi rales or wheezing. HEART: S1-S2 is heard there is no S3 gallop there is no S4 gallop S1 is of variable intensity.. There is murmur of mitral regurgitation and tricuspid regurgitation present. There is no rub. ABDOMEN: Soft. Nontender there is no hepatosplenomegaly bowel sounds are well heard. EXTREMITIES: Femorals are diminished. There is no femoral bruits. Leg pulses are diminished. There is no pedal edema. There is no DVT esophagitis. There is no calf tenderness. POST ANESTHESIA ROOM NURSE: The patient's slightly drowsy but moves all 4 extremities. PSYCHIATRIC exam the patient does not appear to be agitated. His judgment and insight today seem to be intact. IMPRESSION/RECOMMENDATION: 1.Atrial fibrillation with slow ventricular response. At present there is no need for AV stevie blocking agents. Note that the patient due to his frail build , and malnourished state, and with ongoing problems with confusion is not a candidate for chronic anticoagulation therapy. 2. ENCEPHALOPATHY: 12. 3. ELECTROLYTE IMBALANCE. Note that the patient's sodium is coming down, last known value was 148.7. 4. Dehydration. 5. Chronic kidney disease. Seems to be improving. His last GFR was greater than 60. 6. Severe mitral regurgitation: Hydralazine has been started. Will increase as tolerated by the patient. Continue amlodipine. 7. Severe pulmonary hypertension: Recommend continuing amlodipine and hydralazine has been increased. May add sildenafil later on. 8. Moderate to Severe tricuspid Regurgitation: Continue current medications. 9. Prostate cancer with bony metastasis. Medications reviewed. Plan of care discussed with the change patient in care of the patient. 40 minutes spent on this patient, with more than 50% of time spent in direct patient care. Medical decision making is of high complexity. Will follow with you.
[2018-07-12] MEDS: HYDRALAZINE HCL 25 MG TABLET PO SCH ×2 (05:58→13:06)
--- NOTE | 2018-07-12 08:19 | PDOC PROGRESS REPORT ---
Subjective Progress Note for:: 07/12/18 Subjective:: The patient appears to be much better this morning. We had a good conversation which actually made sense. There is a walker in the room and patient apparently has walked to some degree. He has worked with physical therapy and occupational therapy. Discussed the need to increase p.o. intake and return to the rehab Reason For Visit: ALTERED MENTAL STATUS,METABOLIC ENCEPHALOPATHY Physical Exam Vital Signs: Temp Pulse Resp BP Pulse Ox 98.7 F 88 18 136/42 H 99 07/12/18 03:37 07/12/18 03:37 07/12/18 03:37 07/12/18 03:37 07/12/18 03:37 Intake & Output 07/11/18 07/12/18 07/13/18 06:59 06:59 06:59 Intake Total 1337 1095 Output Total 700 550 Balance 637 545 Weight 90.3 kg 70.9 kg General appearance: PRESENT: mild distress Head exam: PRESENT: atraumatic Eye exam: PRESENT: conjunctiva pink Mouth exam: PRESENT: moist Neck exam: PRESENT: carotid bruit. ABSENT: JVD Respiratory exam: PRESENT: clear to auscultation yuliya Cardiovascular exam: PRESENT: irregular rhythm, +S1, +S2 GI/Abdominal exam: PRESENT: normal bowel sounds, soft Extremities exam: PRESENT: tenderness Musculoskeletal exam: PRESENT: tenderness Neurological exam: PRESENT: awake Results Laboratory Results: 07/10/18 04:46 07/11/18 17:00 07/11/18 17:00 Sodium 143.2 Potassium 4.0 Chloride 111 H Carbon Dioxide 21 L Anion Gap 11 BUN 25 H Creatinine 1.07 Est GFR ( Amer) > 60 Est GFR (Non-Af Amer) > 60 Glucose 193 H Calcium 7.6 L Total Bilirubin 0.7 AST 213 H ALT 51 Alkaline Phosphatase 541 H Total Protein 5.5 L Albumin 2.6 L 07/02/18 12:46 Cerebral Spinal Fluid - Csf Viral Culture - Final 07/01/18 07/01/18 07/02/18 03:54 03:54 16:05 Creatine Kinase 617 H 367 H NT-Pro-B Natriuret Pep 9380 H 07/03/18 07/03/18 07/04/18 08:45 08:45 03:53 Creatine Kinase 291 H NT-Pro-B Natriuret Pep 8430 H 9560 H Impressions: Abdomen/Pelvis CT 06/30/18 00:00 IMPRESSION: Fluid overload with bilateral moderate pleural effusions and small amount of ascites. Bibasilar consolidation atelectasis versus pneumonia Head CT 06/30/18 10:00 IMPRESSION: No acute intracranial pathology. No noncontrast CT findings to explain symptoms. MRI may be used to more sensitively evaluate for acute diffusion restricting infarction if suspected. EVIDENCE OF ACUTE STROKE: NO. Head MRI 07/01/18 14:54 IMPRESSION: Mild involutional changes of aging with no acute intracranial imaging findings on this slightly limited study. EVIDENCE OF ACUTE STROKE: NO. Lumbar Puncture 07/02/18 10:40 IMPRESSION: Lumbar puncture under fluoroscopy. No immediate complication. Thoracentesis Ultrasound 07/03/18 10:19 IMPRESSION: SUCCESSFUL THORACENTESIS USING ULTRASOUND GUIDANCE. Chest X-Ray 07/03/18 18:00 IMPRESSION: Stable pulmonary exam demonstrating small bilateral pleural effusions. Guidance Fluoroscopy 07/06/18 00:00 IMPRESSION: SUCCESSFUL PLACEMENT OF A 5 FR DUAL LUMEN 42 CM PICC IN THE LEFT BASILIC VEIN. Interventional Vascular Procedure 07/06/18 00:00 IMPRESSION: SUCCESSFUL PLACEMENT OF A 5 FR DUAL LUMEN 42 CM PICC IN THE LEFT BASILIC VEIN. PICC Line Insertion 07/06/18 00:00 IMPRESSION: SUCCESSFUL PLACEMENT OF A 5 FR DUAL LUMEN 42 CM PICC IN THE LEFT BASILIC VEIN. Assessment & Plan - Diagnosis (1) Altered mental status Qualifiers: Altered mental status type: delirium Qualified Code(s): R41.0 - Disorientation, unspecified Is this a current diagnosis for this admission?: Yes (2) Dehydration Is this a current diagnosis for this admission?: Yes (3) Hypernatremia Is this a current diagnosis for this admission?: Yes (4) New onset atrial fibrillation Is this a current diagnosis for this admission?: Yes Plan: Rate control presently on anticoagulation (5) CKD (chronic kidney disease) stage 3, GFR 30-59 ml/min Is this a current diagnosis for this admission?: Yes Plan: Stable continue hydration and current treatment (6) Hypertension Qualifiers: Hypertension type: unspecified Qualified Code(s): I10 - Essential (primary ) hypertension Is this a current diagnosis for this admission?: Yes Plan: We will continue with current medications (7) Physical deconditioning Is this a current diagnosis for this admission?: Yes (8) Prostate cancer Is this a current diagnosis for this admission?: Yes Plan: Stage IV with metastasis. (9) Memory loss, short term Is this a current diagnosis for this admission?: Yes (10) Acute psychosis Is this a current diagnosis for this admission?: Yes Plan: Resolved with medications (11) Pulmonary hypertension Is this a current diagnosis for this admission?: Yes Plan: We will continue with the cardiology recommendations
--- NOTE | 2018-07-12 08:44 | PDOC PROGRESS REPORT ---
Subjective Progress Note for:: 07/12/18 Subjective:: Pt eating a little more, getting a little better, mental status stabilizing, discussed plans w/ pt for consideration of rehab Reason For Visit: ALTERED MENTAL STATUS,METABOLIC ENCEPHALOPATHY Physical Exam Vital Signs: Temp Pulse Resp BP Pulse Ox 98.7 F 88 18 136/42 H 99 07/12/18 03:37 07/12/18 03:37 07/12/18 03:37 07/12/18 03:37 07/12/18 03:37 Intake & Output 07/11/18 07/12/18 07/13/18 06:59 06:59 06:59 Intake Total 1337 1095 Output Total 700 550 Balance 637 545 Weight 90.3 kg 70.9 kg General appearance: PRESENT: no acute distress, well-developed, well-nourished Head exam: PRESENT: atraumatic, normocephalic Eye exam: PRESENT: conjunctiva pink, EOMI, PERRLA. ABSENT: scleral icterus Ear exam: PRESENT: normal external ear exam Mouth exam: PRESENT: moist, tongue midline Neck exam: ABSENT: carotid bruit, JVD, lymphadenopathy, thyromegaly Respiratory exam: PRESENT: clear to auscultation yuliya. ABSENT: rales, rhonchi, wheezes Cardiovascular exam: PRESENT: RRR. ABSENT: diastolic murmur, rubs, systolic murmur Pulses: PRESENT: normal dorsalis pedis pul Vascular exam: PRESENT: normal capillary refill GI/Abdominal exam: PRESENT: normal bowel sounds, soft. ABSENT: distended, guarding, mass, organolmegaly, rebound, tenderness Rectal exam: PRESENT: deferred Extremities exam: PRESENT: full ROM. ABSENT: calf tenderness, clubbing, pedal edema Neurological exam: PRESENT: alert, awake, oriented to person, oriented to place , oriented to time, oriented to situation, CN II-XII grossly intact. ABSENT: motor sensory deficit Psychiatric exam: PRESENT: appropriate affect, normal mood. ABSENT: homicidal ideation, suicidal ideation Skin exam: PRESENT: dry, intact, warm. ABSENT: cyanosis, rash Results Laboratory Results: 07/10/18 04:46 07/11/18 17:00 07/11/18 17:00 Sodium 143.2 Potassium 4.0 Chloride 111 H Carbon Dioxide 21 L Anion Gap 11 BUN 25 H Creatinine 1.07 Est GFR ( Amer) > 60 Est GFR (Non-Af Amer) > 60 Glucose 193 H Calcium 7.6 L Total Bilirubin 0.7 AST 213 H ALT 51 Alkaline Phosphatase 541 H Total Protein 5.5 L Albumin 2.6 L 07/02/18 12:46 Cerebral Spinal Fluid - Csf Viral Culture - Final 07/01/18 07/01/18 07/02/18 03:54 03:54 16:05 Creatine Kinase 617 H 367 H NT-Pro-B Natriuret Pep 9380 H 07/03/18 07/03/18 07/04/18 08:45 08:45 03:53 Creatine Kinase 291 H NT-Pro-B Natriuret Pep 8430 H 9560 H Impressions: Abdomen/Pelvis CT 06/30/18 00:00 IMPRESSION: Fluid overload with bilateral moderate pleural effusions and small amount of ascites. Bibasilar consolidation atelectasis versus pneumonia Head CT 06/30/18 10:00 IMPRESSION: No acute intracranial pathology. No noncontrast CT findings to explain symptoms. MRI may be used to more sensitively evaluate for acute diffusion restricting infarction if suspected. EVIDENCE OF ACUTE STROKE: NO. Head MRI 07/01/18 14:54 IMPRESSION: Mild involutional changes of aging with no acute intracranial imaging findings on this slightly limited study. EVIDENCE OF ACUTE STROKE: NO. Lumbar Puncture 07/02/18 10:40 IMPRESSION: Lumbar puncture under fluoroscopy. No immediate complication. Thoracentesis Ultrasound 07/03/18 10:19 IMPRESSION: SUCCESSFUL THORACENTESIS USING ULTRASOUND GUIDANCE. Chest X-Ray 07/03/18 18:00 IMPRESSION: Stable pulmonary exam demonstrating small bilateral pleural effusions. Guidance Fluoroscopy 07/06/18 00:00 IMPRESSION: SUCCESSFUL PLACEMENT OF A 5 FR DUAL LUMEN 42 CM PICC IN THE LEFT BASILIC VEIN. Interventional Vascular Procedure 07/06/18 00:00 IMPRESSION: SUCCESSFUL PLACEMENT OF A 5 FR DUAL LUMEN 42 CM PICC IN THE LEFT BASILIC VEIN. PICC Line Insertion 07/06/18 00:00 IMPRESSION: SUCCESSFUL PLACEMENT OF A 5 FR DUAL LUMEN 42 CM PICC IN THE LEFT BASILIC VEIN. Assessment & Plan - Diagnosis (1) Altered mental status Qualifiers: Altered mental status type: delirium Qualified Code(s): R41.0 - Disorientation, unspecified Is this a current diagnosis for this admission?: Yes Plan: Improved (2) Difficulty swallowing liquids Is this a current diagnosis for this admission?: Yes Plan: improived (3) Prostate cancer Is this a current diagnosis for this admission?: Yes Plan: Further rx as outpt (4) Malnutrition Qualifiers: Malnutrition type: protein-calorie malnutrition Protein-calorie malnutrition severity: moderate Qualified Code(s): E44.0 - Moderate protein- calorie malnutrition Is this a current diagnosis for this admission?: Yes Plan: Cont oral nutrition, cont megace - Time Time Spent with patient: 35 or more minutes Disposition: d/w pt pt and family extensively over weekend - Inpatient Certification Based on my medical assessment, after consideration of the patient's comorbidities, presenting symptoms, or acuity I expect that the services needed warrant INPATIENT care.: Yes I certify that my determination is in accordance with my understanding of Medicare's requirements for reasonable and necessary INPATIENT services [42 CFR 412.3e].: Yes Medical Necessity: Risk of Complication if Not Cared For in Hospital
[2018-07-12] MEDS: MULTIVITAMINS W-IRON TABLET, CHEWABLE PO SCH (10:03)
[2018-07-12] MEDS: MEGESTROL ACETATE SUSP 400 MG/10 ML UDCUP PO SCH (10:03)
[2018-07-12] MEDS: APIXABAN 2.5 MG TABLET PO SCH ×2 (10:04→17:32)
[2018-07-12] MEDS: AMLODIPINE BESYLATE 10 MG TABLET PO SCH (10:04)
[2018-07-12] MEDS: BUSPIRONE HCL 10 MG TABLET PO SCH ×2 (10:04→17:32)
[2018-07-12] MEDS: DIVALPROEX SODIUM 250 MG TABLET.DR PO SCH ×2 (10:04→17:32)
[2018-07-12] MEDS: ASPIRIN 81 MG TABLET, CHEWABLE PO SCH (10:04)
[2018-07-12] MEDS: INSULIN LISPRO 100 UNIT/ML 3 ML VIAL SUBCUT PRN (13:03)
--- NOTE | 2018-07-12 21:08 | Progress Note ---
Provider Note Provider Note: CARDIOLOGY PROGRESS TOWARDS by Dr. Cruz has been on 07/12/2018. OBJECTIVE: The patient is awake alert oriented x3. He continues to be in atrial fibrillation with controlled ventricular response, in spite of the patient not being on any AV stevie blocking agents. There is no TIA or CVA symptoms. The patient denies any chest pain or discomfort. There is no PND orthopnea or leg edema. There is no recurrence of ventricular tachycardia. His dysphagia to liquids is improving. There is no clinical events of aspiration. He has no bleeding on Eliquis. 07/12/18 12:00 Temperature 99.6 F Temperature Oral Source Pulse Rate 78 Respiratory 18 Rate Blood Pressure 125/42 L [Upper Arm] Blood Pressure 69 Mean [Upper Arm ] Blood Pressure Supine Position [Upper Arm] O2 Sat by Pulse 100 Oximetry Oxygen Delivery Room Air Method ( includes room air) 06/30/18 07/01/18 07/06/18 15:35 14:13 05:54 POC Glucose RPR NONREACTIVE C. difficile Tox (PCR) Hepatitis A IgM Ab Negative Hep Bs Antigen Negative Hep B Core IgM Ab Negative Hepatitis C Antibody <0.1 Mycoplasma pneumon IgG 375 H Mycoplasma pneumon IgM <770 07/06/18 07/12/18 07/12/18 19:40 11:22 16:07 POC Glucose 208 H 154 H RPR C. difficile Tox (PCR) NEGATIVE Hepatitis A IgM Ab Hep Bs Antigen Hep B Core IgM Ab Hepatitis C Antibody Mycoplasma pneumon IgG Mycoplasma pneumon IgM PHYSICAL EXAMINATION: The patient is a frail build, and appears to be chronically ill. He is in no acute distress. HEAD: Atraumatic normocephalic. EYES: Pupils are equal round regular react to light accommodation. ENT: Is negative. NECK: Is supple. There is no JVD. Carotids equal there is no bruit. There is no lymphadenopathy. There is no goiter. There is no accessory muscles of respiration in use. Trachea central. LUNGS: Show diminished air entry in the bases with some area of tenderness which covers a small area of the bases bilaterally. The rest of the lungs are clear. There is no rhonchi rales or wheezing. HEART: S1-S2 is heard there is no S3 gallop there is no S4 gallop S1 is of variable intensity.. There is murmur of mitral regurgitation and tricuspid regurgitation present. There is no rub. ABDOMEN: Soft. Nontender there is no hepatosplenomegaly bowel sounds are well heard. EXTREMITIES: Femorals are diminished. There is no femoral bruits. Leg pulses are diminished. There is no pedal edema. There is no DVT esophagitis. There is no calf tenderness. ENTRANCE GUARD: The patient's slightly drowsy but moves all 4 extremities. PSYCHIATRIC exam the patient does not appear to be agitated. His judgment and insight today seem to be intact. IMPRESSION/RECOMMENDATION: 1.Atrial fibrillation with slow ventricular response. At present there is no need for AV stevie blocking agents. Note that the patient due to his frail build , and malnourished state, and with ongoing problems with confusion is not a candidate for chronic anticoagulation therapy. 2. ENCEPHALOPATHY: 12. 3. ELECTROLYTE IMBALANCE. Note that the patient's sodium is coming down, last known value was 148.7. 4. Dehydration. 5. Chronic kidney disease. Seems to be improving. His last GFR was greater than 60. 6. Severe mitral regurgitation: Hydralazine has been started. Will increase Dralzine to 25 mg p.o. every 6 hours.. Continue amlodipine. 7. Severe pulmonary hypertension: Recommend continuing amlodipine and hydralazine has been increased. May add sildenafil later on. 8. Moderate to Severe tricuspid Regurgitation: Continue current medications. 9. Prostate cancer with bony metastasis. Medications reviewed. Medication dose increased. Plan of care discussed with the change patient in care of the patient. 40 minutes spent on this patient, with more than 50% of time spent in direct patient care. Medical decision making is of high complexity. Will follow with you.
[2018-07-12] MEDS: VALPROATE SODIUM SYRUP 250 MG/5 ML UDCUP PO SCH (22:07)
[2018-07-12] MEDS: TAMSULOSIN HCL 0.4 MG CAP.SR.24H PO SCH (22:07)
[2018-07-13] MEDS: HYDRALAZINE HCL 25 MG TABLET PO SCH ×4 (00:41→18:27)
--- NOTE | 2018-07-13 08:13 | PDOC PROGRESS REPORT ---
Subjective Progress Note for:: 07/13/18 Subjective:: The patient states to feel well. He is apparently eating a little bit better. He is having good bowel movements. Again discussed the need for rehab Reason For Visit: ALTERED MENTAL STATUS,METABOLIC ENCEPHALOPATHY Physical Exam Vital Signs: Temp Pulse Resp BP Pulse Ox 98.6 F 84 19 134/47 H 100 07/13/18 03:39 07/13/18 07:00 07/13/18 03:39 07/13/18 03:39 07/13/18 03:39 Intake & Output 07/12/18 07/13/18 07/14/18 06:59 06:59 06:59 Intake Total 1095 562 Output Total 550 Balance 545 562 Weight 70.9 kg 90.4 kg General appearance: PRESENT: mild distress Head exam: PRESENT: atraumatic Eye exam: PRESENT: conjunctiva pink Mouth exam: PRESENT: moist Neck exam: PRESENT: carotid bruit. ABSENT: JVD Respiratory exam: PRESENT: clear to auscultation yuliya Cardiovascular exam: PRESENT: irregular rhythm, +S1, +S2 GI/Abdominal exam: PRESENT: normal bowel sounds, soft Extremities exam: PRESENT: tenderness Musculoskeletal exam: PRESENT: tenderness Neurological exam: PRESENT: alert, awake Psychiatric exam: PRESENT: anxious, flat affect Results Laboratory Results: 07/10/18 04:46 07/11/18 17:00 07/02/18 12:46 Cerebral Spinal Fluid - Csf Viral Culture - Final 07/01/18 07/01/18 07/02/18 03:54 03:54 16:05 Creatine Kinase 617 H 367 H NT-Pro-B Natriuret Pep 9380 H 07/03/18 07/03/18 07/04/18 08:45 08:45 03:53 Creatine Kinase 291 H NT-Pro-B Natriuret Pep 8430 H 9560 H Impressions: Abdomen/Pelvis CT 06/30/18 00:00 IMPRESSION: Fluid overload with bilateral moderate pleural effusions and small amount of ascites. Bibasilar consolidation atelectasis versus pneumonia Head CT 06/30/18 10:00 IMPRESSION: No acute intracranial pathology. No noncontrast CT findings to explain symptoms. MRI may be used to more sensitively evaluate for acute diffusion restricting infarction if suspected. EVIDENCE OF ACUTE STROKE: NO. Head MRI 07/01/18 14:54 IMPRESSION: Mild involutional changes of aging with no acute intracranial imaging findings on this slightly limited study. EVIDENCE OF ACUTE STROKE: NO. Lumbar Puncture 07/02/18 10:40 IMPRESSION: Lumbar puncture under fluoroscopy. No immediate complication. Thoracentesis Ultrasound 07/03/18 10:19 IMPRESSION: SUCCESSFUL THORACENTESIS USING ULTRASOUND GUIDANCE. Chest X-Ray 07/03/18 18:00 IMPRESSION: Stable pulmonary exam demonstrating small bilateral pleural effusions. Guidance Fluoroscopy 07/06/18 00:00 IMPRESSION: SUCCESSFUL PLACEMENT OF A 5 FR DUAL LUMEN 42 CM PICC IN THE LEFT BASILIC VEIN. Interventional Vascular Procedure 07/06/18 00:00 IMPRESSION: SUCCESSFUL PLACEMENT OF A 5 FR DUAL LUMEN 42 CM PICC IN THE LEFT BASILIC VEIN. PICC Line Insertion 07/06/18 00:00 IMPRESSION: SUCCESSFUL PLACEMENT OF A 5 FR DUAL LUMEN 42 CM PICC IN THE LEFT BASILIC VEIN. Assessment & Plan - Diagnosis (1) Altered mental status Qualifiers: Altered mental status type: delirium Qualified Code(s): R41.0 - Disorientation, unspecified Is this a current diagnosis for this admission?: Yes (2) Dehydration Is this a current diagnosis for this admission?: Yes (3) Hypernatremia Is this a current diagnosis for this admission?: Yes (4) New onset atrial fibrillation Is this a current diagnosis for this admission?: Yes Plan: Rate control presently on anticoagulation (5) CKD (chronic kidney disease) stage 3, GFR 30-59 ml/min Is this a current diagnosis for this admission?: Yes Plan: Stable continue hydration and current treatment (6) Hypertension Qualifiers: Hypertension type: unspecified Qualified Code(s): I10 - Essential (primary ) hypertension Is this a current diagnosis for this admission?: Yes Plan: We will continue with current medications (7) Physical deconditioning Is this a current diagnosis for this admission?: Yes Plan: Will need PT OT (8) Prostate cancer Is this a current diagnosis for this admission?: Yes (9) Memory loss, short term Is this a current diagnosis for this admission?: Yes Plan: Possibly worsening dementia. (10) Acute psychosis Is this a current diagnosis for this admission?: Yes (11) Pulmonary hypertension Is this a current diagnosis for this admission?: Yes Plan: We will continue with the cardiology recommendations
--- NOTE | 2018-07-13 08:31 | PDOC PROGRESS REPORT ---
Subjective Progress Note for:: 07/13/18 Subjective:: still w/ significant sundowning, seems to be getting towards a point where we can consider inpt rehab placement Reason For Visit: ALTERED MENTAL STATUS,METABOLIC ENCEPHALOPATHY Physical Exam Vital Signs: Temp Pulse Resp BP Pulse Ox 98.6 F 84 19 134/47 H 100 07/13/18 03:39 07/13/18 07:00 07/13/18 03:39 07/13/18 03:39 07/13/18 03:39 Intake & Output 07/12/18 07/13/18 07/14/18 06:59 06:59 06:59 Intake Total 1095 562 Output Total 550 Balance 545 562 Weight 70.9 kg 90.4 kg General appearance: PRESENT: no acute distress, well-developed, well-nourished Head exam: PRESENT: atraumatic, normocephalic Eye exam: PRESENT: conjunctiva pink, EOMI, PERRLA. ABSENT: scleral icterus Ear exam: PRESENT: normal external ear exam Mouth exam: PRESENT: moist, tongue midline Neck exam: ABSENT: carotid bruit, JVD, lymphadenopathy, thyromegaly Respiratory exam: PRESENT: clear to auscultation yuliya. ABSENT: rales, rhonchi, wheezes Cardiovascular exam: PRESENT: RRR. ABSENT: diastolic murmur, rubs, systolic murmur Pulses: PRESENT: normal dorsalis pedis pul Vascular exam: PRESENT: normal capillary refill GI/Abdominal exam: PRESENT: normal bowel sounds, soft. ABSENT: distended, guarding, mass, organolmegaly, rebound, tenderness Rectal exam: PRESENT: deferred Extremities exam: PRESENT: full ROM. ABSENT: calf tenderness, clubbing, pedal edema Neurological exam: PRESENT: alert, awake, oriented to person, oriented to place , oriented to time, oriented to situation, CN II-XII grossly intact. ABSENT: motor sensory deficit Psychiatric exam: PRESENT: appropriate affect, normal mood. ABSENT: homicidal ideation, suicidal ideation Skin exam: PRESENT: dry, intact, warm. ABSENT: cyanosis, rash Results Laboratory Results: 07/10/18 04:46 07/11/18 17:00 07/02/18 12:46 Cerebral Spinal Fluid - Csf Viral Culture - Final 07/01/18 07/01/18 07/02/18 03:54 03:54 16:05 Creatine Kinase 617 H 367 H NT-Pro-B Natriuret Pep 9380 H 07/03/18 07/03/18 07/04/18 08:45 08:45 03:53 Creatine Kinase 291 H NT-Pro-B Natriuret Pep 8430 H 9560 H Impressions: Abdomen/Pelvis CT 06/30/18 00:00 IMPRESSION: Fluid overload with bilateral moderate pleural effusions and small amount of ascites. Bibasilar consolidation atelectasis versus pneumonia Head CT 06/30/18 10:00 IMPRESSION: No acute intracranial pathology. No noncontrast CT findings to explain symptoms. MRI may be used to more sensitively evaluate for acute diffusion restricting infarction if suspected. EVIDENCE OF ACUTE STROKE: NO. Head MRI 07/01/18 14:54 IMPRESSION: Mild involutional changes of aging with no acute intracranial imaging findings on this slightly limited study. EVIDENCE OF ACUTE STROKE: NO. Lumbar Puncture 07/02/18 10:40 IMPRESSION: Lumbar puncture under fluoroscopy. No immediate complication. Thoracentesis Ultrasound 07/03/18 10:19 IMPRESSION: SUCCESSFUL THORACENTESIS USING ULTRASOUND GUIDANCE. Chest X-Ray 07/03/18 18:00 IMPRESSION: Stable pulmonary exam demonstrating small bilateral pleural effusions. Guidance Fluoroscopy 07/06/18 00:00 IMPRESSION: SUCCESSFUL PLACEMENT OF A 5 FR DUAL LUMEN 42 CM PICC IN THE LEFT BASILIC VEIN. Interventional Vascular Procedure 07/06/18 00:00 IMPRESSION: SUCCESSFUL PLACEMENT OF A 5 FR DUAL LUMEN 42 CM PICC IN THE LEFT BASILIC VEIN. PICC Line Insertion 07/06/18 00:00 IMPRESSION: SUCCESSFUL PLACEMENT OF A 5 FR DUAL LUMEN 42 CM PICC IN THE LEFT BASILIC VEIN. Assessment & Plan - Diagnosis (1) Altered mental status Qualifiers: Altered mental status type: delirium Qualified Code(s): R41.0 - Disorientation, unspecified Is this a current diagnosis for this admission?: Yes Plan: Better (2) Difficulty swallowing liquids Is this a current diagnosis for this admission?: Yes Plan: Improved (3) Prostate cancer Is this a current diagnosis for this admission?: Yes Plan: will have f/u as oupt (4) Malnutrition Qualifiers: Malnutrition type: protein-calorie malnutrition Protein-calorie malnutrition severity: moderate Qualified Code(s): E44.0 - Moderate protein- calorie malnutrition Is this a current diagnosis for this admission?: Yes Plan: Cont to encourage po intake
[2018-07-13] MEDS: INSULIN LISPRO 100 UNIT/ML 3 ML VIAL SUBCUT PRN (08:42)
[2018-07-13] MEDS: VALPROATE SODIUM SYRUP 250 MG/5 ML UDCUP PO SCH ×4 (09:30→22:16)
[2018-07-13] MEDS: MEGESTROL ACETATE SUSP 400 MG/10 ML UDCUP PO SCH (09:33)
[2018-07-13] MEDS: BUSPIRONE HCL 10 MG TABLET PO SCH ×3 (09:33→18:28)
[2018-07-13] MEDS: APIXABAN 2.5 MG TABLET PO SCH ×3 (09:34→18:28)
[2018-07-13] MEDS: AMLODIPINE BESYLATE 10 MG TABLET PO SCH (09:41)
[2018-07-13] MEDS: MULTIVITAMINS W-IRON TABLET, CHEWABLE PO SCH (09:42)
[2018-07-13 21:26] LABS: ANION GAP 13 (5-19); BLOOD UREA NITROGEN 32 mg/dL (7-20); CARBON DIOXIDE 20 mmol/L (22-30); CHLORIDE 108 mmol/L (98-107); GLUCOSE 146 mg/dL (75-110); POTASSIUM 3.4 mmol/L (3.6-5.0); SODIUM 140.6 mmol/L (137-145)
[2018-07-13 21:40] LABS: CALCIUM 6.6 mg/dL (8.4-10.2)
[2018-07-13] MEDS: TAMSULOSIN HCL 0.4 MG CAP.SR.24H PO SCH (22:16)
[2018-07-13] MEDS ORDERED: CALCIUM GLUCONATE 1000 MG/10 ML INJ IV ONE (22:30)
[2018-07-14] MEDS: HYDRALAZINE HCL 25 MG TABLET PO SCH ×4 (02:14→17:53)
[2018-07-14 05:07] LABS: ANION GAP 12 (5-19); BLOOD UREA NITROGEN 32 mg/dL (7-20); CARBON DIOXIDE 20 mmol/L (22-30); CHLORIDE 109 mmol/L (98-107); GLUCOSE 140 mg/dL (75-110); POTASSIUM 3.5 mmol/L (3.6-5.0); SODIUM 141.4 mmol/L (137-145)
[2018-07-14 05:18] LABS: CALCIUM 6.8 mg/dL (8.4-10.2)
--- NOTE | 2018-07-14 08:07 | PDOC PROGRESS REPORT ---
Subjective Progress Note for:: 07/14/18 Subjective:: No acute events overnight Reason For Visit: ALTERED MENTAL STATUS,METABOLIC ENCEPHALOPATHY Physical Exam Vital Signs: Temp Pulse Resp BP Pulse Ox 98.5 F 95 13 112/48 L 98 07/14/18 04:00 07/14/18 07:00 07/14/18 04:00 07/14/18 04:00 07/14/18 04:00 Intake & Output 07/13/18 07/14/18 07/15/18 06:59 06:59 06:59 Intake Total 562 831 Balance 562 831 Weight 90.4 kg 91.2 kg General appearance: PRESENT: no acute distress, well-developed, well-nourished Head exam: PRESENT: atraumatic, normocephalic Eye exam: PRESENT: conjunctiva pink, EOMI, PERRLA. ABSENT: scleral icterus Ear exam: PRESENT: normal external ear exam Mouth exam: PRESENT: moist, tongue midline Neck exam: ABSENT: carotid bruit, JVD, lymphadenopathy, thyromegaly Respiratory exam: PRESENT: clear to auscultation yuliya. ABSENT: rales, rhonchi, wheezes Cardiovascular exam: PRESENT: RRR. ABSENT: diastolic murmur, rubs, systolic murmur Pulses: PRESENT: normal dorsalis pedis pul Vascular exam: PRESENT: normal capillary refill GI/Abdominal exam: PRESENT: normal bowel sounds, soft. ABSENT: distended, guarding, mass, organolmegaly, rebound, tenderness Rectal exam: PRESENT: deferred Extremities exam: PRESENT: full ROM. ABSENT: calf tenderness, clubbing, pedal edema Neurological exam: PRESENT: alert, awake, oriented to person, oriented to place , oriented to time, oriented to situation, CN II-XII grossly intact. ABSENT: motor sensory deficit Psychiatric exam: PRESENT: appropriate affect, normal mood. ABSENT: homicidal ideation, suicidal ideation Skin exam: PRESENT: dry, intact, warm. ABSENT: cyanosis, rash Results Laboratory Results: 07/10/18 04:46 07/14/18 03:58 07/13/18 07/14/18 20:47 03:58 Sodium 140.6 141.4 Potassium 3.4 L 3.5 L Chloride 108 H 109 H Carbon Dioxide 20 L 20 L Anion Gap 13 12 BUN 32 H 32 H Creatinine 1.26 H 1.22 Est GFR ( Amer) > 60 > 60 Est GFR (Non-Af Amer) 56 L 58 L Glucose 146 H 140 H Calcium 6.6 L* 6.8 L* Magnesium 1.7 1.7 07/03/18 16:15 Pleural Fluid Viral Culture - Final 07/01/18 07/01/18 07/02/18 03:54 03:54 16:05 Creatine Kinase 617 H 367 H NT-Pro-B Natriuret Pep 9380 H 07/03/18 07/03/18 07/04/18 08:45 08:45 03:53 Creatine Kinase 291 H NT-Pro-B Natriuret Pep 8430 H 9560 H Impressions: Abdomen/Pelvis CT 06/30/18 00:00 IMPRESSION: Fluid overload with bilateral moderate pleural effusions and small amount of ascites. Bibasilar consolidation atelectasis versus pneumonia Head CT 06/30/18 10:00 IMPRESSION: No acute intracranial pathology. No noncontrast CT findings to explain symptoms. MRI may be used to more sensitively evaluate for acute diffusion restricting infarction if suspected. EVIDENCE OF ACUTE STROKE: NO. Head MRI 07/01/18 14:54 IMPRESSION: Mild involutional changes of aging with no acute intracranial imaging findings on this slightly limited study. EVIDENCE OF ACUTE STROKE: NO. Lumbar Puncture 07/02/18 10:40 IMPRESSION: Lumbar puncture under fluoroscopy. No immediate complication. Thoracentesis Ultrasound 07/03/18 10:19 IMPRESSION: SUCCESSFUL THORACENTESIS USING ULTRASOUND GUIDANCE. Chest X-Ray 07/03/18 18:00 IMPRESSION: Stable pulmonary exam demonstrating small bilateral pleural effusions. Guidance Fluoroscopy 07/06/18 00:00 IMPRESSION: SUCCESSFUL PLACEMENT OF A 5 FR DUAL LUMEN 42 CM PICC IN THE LEFT BASILIC VEIN. Interventional Vascular Procedure 07/06/18 00:00 IMPRESSION: SUCCESSFUL PLACEMENT OF A 5 FR DUAL LUMEN 42 CM PICC IN THE LEFT BASILIC VEIN. PICC Line Insertion 07/06/18 00:00 IMPRESSION: SUCCESSFUL PLACEMENT OF A 5 FR DUAL LUMEN 42 CM PICC IN THE LEFT BASILIC VEIN. Assessment & Plan - Diagnosis (1) Altered mental status Qualifiers: Altered mental status type: delirium Qualified Code(s): R41.0 - Disorientation, unspecified Is this a current diagnosis for this admission?: Yes Plan: Stable at this point, being evaluated for rehab placement now (2) Difficulty swallowing liquids Is this a current diagnosis for this admission?: Yes Plan: Improved and prev 2nd mental status (3) Prostate cancer Is this a current diagnosis for this admission?: Yes Plan: F/u as outpt, will not plan further rx while pt in inpt rehab (4) Malnutrition Qualifiers: Malnutrition type: protein-calorie malnutrition Protein-calorie malnutrition severity: moderate Qualified Code(s): E44.0 - Moderate protein- calorie malnutrition Is this a current diagnosis for this admission?: Yes Plan: Needs encouragement and hand feeding, but does eat (5) Physical deconditioning Is this a current diagnosis for this admission?: Yes Plan: Will need rehab placement, александр bansal evaluating pt
--- NOTE | 2018-07-14 08:23 | PDOC PROGRESS REPORT ---
Subjective Progress Note for:: 07/14/18 Subjective:: The patient is more alert and awake. He is ready to be transferred to the rehab. Discussed the need for physical therapy Reason For Visit: ALTERED MENTAL STATUS,METABOLIC ENCEPHALOPATHY Physical Exam Vital Signs: Temp Pulse Resp BP Pulse Ox 98.5 F 95 13 112/48 L 98 07/14/18 04:00 07/14/18 07:00 07/14/18 04:00 07/14/18 04:00 07/14/18 04:00 Intake & Output 07/13/18 07/14/18 07/15/18 06:59 06:59 06:59 Intake Total 562 831 Balance 562 831 Weight 90.4 kg 91.2 kg General appearance: PRESENT: mild distress Head exam: PRESENT: atraumatic Eye exam: PRESENT: conjunctiva pink Mouth exam: PRESENT: moist Neck exam: PRESENT: carotid bruit. ABSENT: JVD Cardiovascular exam: PRESENT: irregular rhythm, +S1, +S2 GI/Abdominal exam: PRESENT: normal bowel sounds, soft Extremities exam: PRESENT: tenderness Musculoskeletal exam: PRESENT: tenderness Neurological exam: PRESENT: alert, awake Results Laboratory Results: 07/10/18 04:46 07/14/18 03:58 07/13/18 07/14/18 20:47 03:58 Sodium 140.6 141.4 Potassium 3.4 L 3.5 L Chloride 108 H 109 H Carbon Dioxide 20 L 20 L Anion Gap 13 12 BUN 32 H 32 H Creatinine 1.26 H 1.22 Est GFR ( Amer) > 60 > 60 Est GFR (Non-Af Amer) 56 L 58 L Glucose 146 H 140 H Calcium 6.6 L* 6.8 L* Magnesium 1.7 1.7 07/03/18 16:15 Pleural Fluid Viral Culture - Final 07/01/18 07/01/18 07/02/18 03:54 03:54 16:05 Creatine Kinase 617 H 367 H NT-Pro-B Natriuret Pep 9380 H 07/03/18 07/03/18 07/04/18 08:45 08:45 03:53 Creatine Kinase 291 H NT-Pro-B Natriuret Pep 8430 H 9560 H Impressions: Abdomen/Pelvis CT 06/30/18 00:00 IMPRESSION: Fluid overload with bilateral moderate pleural effusions and small amount of ascites. Bibasilar consolidation atelectasis versus pneumonia Head CT 06/30/18 10:00 IMPRESSION: No acute intracranial pathology. No noncontrast CT findings to explain symptoms. MRI may be used to more sensitively evaluate for acute diffusion restricting infarction if suspected. EVIDENCE OF ACUTE STROKE: NO. Head MRI 07/01/18 14:54 IMPRESSION: Mild involutional changes of aging with no acute intracranial imaging findings on this slightly limited study. EVIDENCE OF ACUTE STROKE: NO. Lumbar Puncture 07/02/18 10:40 IMPRESSION: Lumbar puncture under fluoroscopy. No immediate complication. Thoracentesis Ultrasound 07/03/18 10:19 IMPRESSION: SUCCESSFUL THORACENTESIS USING ULTRASOUND GUIDANCE. Chest X-Ray 07/03/18 18:00 IMPRESSION: Stable pulmonary exam demonstrating small bilateral pleural effusions. Guidance Fluoroscopy 07/06/18 00:00 IMPRESSION: SUCCESSFUL PLACEMENT OF A 5 FR DUAL LUMEN 42 CM PICC IN THE LEFT BASILIC VEIN. Interventional Vascular Procedure 07/06/18 00:00 IMPRESSION: SUCCESSFUL PLACEMENT OF A 5 FR DUAL LUMEN 42 CM PICC IN THE LEFT BASILIC VEIN. PICC Line Insertion 07/06/18 00:00 IMPRESSION: SUCCESSFUL PLACEMENT OF A 5 FR DUAL LUMEN 42 CM PICC IN THE LEFT BASILIC VEIN. Assessment & Plan - Diagnosis (1) Altered mental status Qualifiers: Altered mental status type: delirium Qualified Code(s): R41.0 - Disorientation, unspecified Is this a current diagnosis for this admission?: Yes Plan: Slight improvement with medication most probably dementia has been exacerbated by the long-term hospitalization (2) Dehydration Is this a current diagnosis for this admission?: Yes (3) Hypernatremia Is this a current diagnosis for this admission?: Yes (4) New onset atrial fibrillation Is this a current diagnosis for this admission?: Yes Plan: Stable with medication. Rate controlled. Had a run of irregular heartbeats last night which were corrected with an infusion of calcium (5) CKD (chronic kidney disease) stage 3, GFR 30-59 ml/min Is this a current diagnosis for this admission?: Yes Plan: Stable continue hydration and current treatment (6) Hypertension Qualifiers: Hypertension type: unspecified Qualified Code(s): I10 - Essential (primary ) hypertension Is this a current diagnosis for this admission?: Yes Plan: We will continue with current medications (7) Physical deconditioning Is this a current diagnosis for this admission?: Yes Plan: Needs to have rehab at the skilled nursing with PT twice a day (8) Prostate cancer Is this a current diagnosis for this admission?: Yes Plan: Stage IV with metastasis. (9) Memory loss, short term Is this a current diagnosis for this admission?: Yes (10) Acute psychosis Is this a current diagnosis for this admission?: Yes (11) Pulmonary hypertension Is this a current diagnosis for this admission?: Yes Plan: Stable continue current medications
[2018-07-14] MEDS: APIXABAN 2.5 MG TABLET PO SCH ×2 (11:18→17:53)
[2018-07-14] MEDS: AMLODIPINE BESYLATE 10 MG TABLET PO SCH (11:18)
[2018-07-14] MEDS: BUSPIRONE HCL 10 MG TABLET PO SCH ×2 (11:19→17:52)
[2018-07-14] MEDS: POTASSIUM CHLORIDE 20 MEQ/15 ML UDCUP PO SCH ×2 (11:22→23:19)
[2018-07-14] MEDS: MULTIVITAMINS W-IRON TABLET, CHEWABLE PO SCH (11:22)
[2018-07-14] MEDS: VALPROATE SODIUM SYRUP 250 MG/5 ML UDCUP PO SCH ×4 (11:22→23:19)
[2018-07-14] MEDS: CALCIUM CARBONATE 250 MG/VITAMIN D3 125 UNIT TABLET PO SCH ×2 (11:23→17:52)
[2018-07-14] MEDS: MEGESTROL ACETATE SUSP 400 MG/10 ML UDCUP PO SCH (11:23)
[2018-07-14] MEDS: INSULIN LISPRO 100 UNIT/ML 3 ML VIAL SUBCUT PRN ×3 (11:26→23:18)
--- NOTE | 2018-07-14 14:12 | PDOC TRANSFER SUMMARY ---
General - Admit/Disc Date/PCP Admission Date/Primary Care Provider: 06/30/18 12:55 SHAWN HERNANDEZ MD Discharge Date: 07/14/18 - Discharge Diagnosis (1) Altered mental status Is this a current diagnosis for this admission?: Yes (2) Dehydration Is this a current diagnosis for this admission?: Yes (3) Hypernatremia Is this a current diagnosis for this admission?: Yes (4) New onset atrial fibrillation Is this a current diagnosis for this admission?: Yes Summary: Continue current medications. Follow-up with cardiology upon discharge (5) CKD (chronic kidney disease) stage 3, GFR 30-59 ml/min Is this a current diagnosis for this admission?: Yes Summary: Stable continue current medications (6) Hypertension Is this a current diagnosis for this admission?: Yes Summary: Stable continue current medications (7) Physical deconditioning Is this a current diagnosis for this admission?: Yes Summary: The patient will require physical therapy twice a day and increase oral intake (8) Prostate cancer Is this a current diagnosis for this admission?: Yes Summary: Stage IV prostate cancer we will need to follow-up with the oncologist Dr. Eason (9) Memory loss, short term Is this a current diagnosis for this admission?: Yes Summary: Dementia with worsening sun downs during the hospitalization. Much improved with psychiatric evaluation and adjustment of medication. We will continue with current treatment (10) Acute psychosis Is this a current diagnosis for this admission?: Yes (11) Pulmonary hypertension Is this a current diagnosis for this admission?: Yes Summary: Continue current medications - Additional Information Resuscitation Status: Full Code Discharge Diet: Regular Discharge Activity: Activity As Tolerated Home Medications: Allopurinol [Zyloprim 300 mg Tablet] 300 mg PO DAILY 06/17/18 Atorvastatin Calcium [Lipitor 10 mg Tablet] 10 mg PO QHS 06/17/18 Latanoprost/Pf [Latanoprost 0.005% Eye Drop] 1 drop OS QHS 06/17/18 Tamsulosin HCl [Flomax 0.4 mg Cap.sr] 0.4 mg PO QHS 06/17/18 Acetaminophen [Tylenol 325 mg Tablet] 650 mg PO Q4HP PRN tablet 06/24/18 Amlodipine Besylate [Norvasc 10 mg Tablet] 10 mg PO DAILY tablet 06/24/18 Bicalutamide [Casodex 50 mg Tablet] 50 mg PO DAILY tablet 06/24/18 Acetaminophen [Tylenol 325 mg Tablet] 650 mg PO Q6HP PRN tablet 07/14/18 Apixaban [Eliquis 2.5 mg Tablet] 2.5 mg PO BID tablet 07/14/18 Buspirone HCl [Buspar 10 mg Tablet] 10 mg PO BID tablet 07/14/18 Calcium Carbonate/Vitamin D3 [Os-Trae 250 mg with Vitamin D 125 Units] 1 tab PO BID tablet 07/14/18 Hydralazine HCl [Apresoline 25 mg Tablet] 25 mg PO Q6 tablet 07/14/18 Loperamide HCl [Imodium 2 mg Capsule] 2 mg PO Q4HP PRN capsule 07/14/18 Megestrol Acetate [Megace Carmela 400 mg/10 ml Udcup] 400 mg PO DAILY udc Multivitamins W-Iron [Flintstones Chewable Multivit W/Fe Tab] 2 tab PO DAILY tab.chew 07/14/18 Potassium Chloride [Kaon-Cl 20 Meq/15 ml Udcup] 10 meq PO Q12 udc 07/14/18 Risperidone [Risperdal 0.25 mg Tablet] 0.25 mg PO BIDP PRN tablet 07/14/18 Valproate Sodium [Depakene Syrup 250 mg/5 ml Udcup] 125 mg PO QID udc 07/14/18 History of Present Illness Admission Date/PCP: 06/30/18 12:55 SHAWN HERNANDEZ MD History of Present Illness: HARMONY RODRIGUEZ is a 72 year old male Hospital Course Hospital Course: The patient was admitted from the rehab with altered mental status. He appeared to be dehydrated with hyper natremia. He was hydrated. The patient has developed acute onset of new atrial fibrillation. Several of his medications have been readjusted. He was seen by cardiology. His kidney function has remained stable. Unfortunately because of altered mental status the patient was not eating or drinking well. The PICC line has been placed unfortunately because of patient's dementia and sun downs he has pulled out the PICC line. After starting medications that have helped with his mental status the patient's mental status has improved. He started eating much more. He is still malnourished but it seems to be improving. On the day of discharge he appeared more comfortable he did have a bowel movement. He is more awake alert and oriented. He is participating in several activities of daily living. Discussed the need for a follow-up to improve he is functional status at the rehab. Physical Exam Vital Signs: Temp Pulse Resp BP Pulse Ox 98.4 F 82 16 137/48 H 100 07/14/18 11:47 07/14/18 11:47 07/14/18 11:47 07/14/18 11:47 07/14/18 11:47 Intake & Output 07/13/18 07/14/18 07/15/18 06:59 06:59 06:59 Intake Total 562 831 Balance 562 831 Weight 90.4 kg 91.2 kg General appearance: PRESENT: mild distress Head exam: PRESENT: atraumatic Eye exam: PRESENT: conjunctiva pink Mouth exam: PRESENT: moist Neck exam: PRESENT: carotid bruit. ABSENT: JVD Respiratory exam: PRESENT: clear to auscultation yuliya Cardiovascular exam: PRESENT: irregular rhythm, +S1, +S2 GI/Abdominal exam: PRESENT: normal bowel sounds, soft Extremities exam: PRESENT: tenderness Musculoskeletal exam: PRESENT: tenderness Neurological exam: PRESENT: alert, awake Results Laboratory Results: 07/10/18 04:46 07/14/18 03:58 07/13/18 07/14/18 20:47 03:58 Sodium 140.6 141.4 Potassium 3.4 L 3.5 L Chloride 108 H 109 H Carbon Dioxide 20 L 20 L Anion Gap 13 12 BUN 32 H 32 H Creatinine 1.26 H 1.22 Est GFR ( Amer) > 60 > 60 Est GFR (Non-Af Amer) 56 L 58 L Glucose 146 H 140 H Calcium 6.6 L* 6.8 L* Magnesium 1.7 1.7 07/03/18 16:15 Pleural Fluid Viral Culture - Final 07/01/18 07/01/18 07/02/18 03:54 03:54 16:05 Creatine Kinase 617 H 367 H NT-Pro-B Natriuret Pep 9380 H 07/03/18 07/03/18 07/04/18 08:45 08:45 03:53 Creatine Kinase 291 H NT-Pro-B Natriuret Pep 8430 H 9560 H Impressions: Abdomen/Pelvis CT 06/30/18 00:00 IMPRESSION: Fluid overload with bilateral moderate pleural effusions and small amount of ascites. Bibasilar consolidation atelectasis versus pneumonia Head CT 06/30/18 10:00 IMPRESSION: No acute intracranial pathology. No noncontrast CT findings to explain symptoms. MRI may be used to more sensitively evaluate for acute diffusion restricting infarction if suspected. EVIDENCE OF ACUTE STROKE: NO. Head MRI 07/01/18 14:54 IMPRESSION: Mild involutional changes of aging with no acute intracranial imaging findings on this slightly limited study. EVIDENCE OF ACUTE STROKE: NO. Lumbar Puncture 07/02/18 10:40 IMPRESSION: Lumbar puncture under fluoroscopy. No immediate complication. Thoracentesis Ultrasound 07/03/18 10:19 IMPRESSION: SUCCESSFUL THORACENTESIS USING ULTRASOUND GUIDANCE. Chest X-Ray 07/03/18 18:00 IMPRESSION: Stable pulmonary exam demonstrating small bilateral pleural effusions. Guidance Fluoroscopy 07/06/18 00:00 IMPRESSION: SUCCESSFUL PLACEMENT OF A 5 FR DUAL LUMEN 42 CM PICC IN THE LEFT BASILIC VEIN. Interventional Vascular Procedure 07/06/18 00:00 IMPRESSION: SUCCESSFUL PLACEMENT OF A 5 FR DUAL LUMEN 42 CM PICC IN THE LEFT BASILIC VEIN. PICC Line Insertion 07/06/18 00:00 IMPRESSION: SUCCESSFUL PLACEMENT OF A 5 FR DUAL LUMEN 42 CM PICC IN THE LEFT BASILIC VEIN. Qualifiers - * PATIENT BEING DISCHARGED WITH ANY OF THE FOLLOWING DIAGNOSIS: No
[2018-07-14 21:37] LABS: ANION GAP 13 (5-19); BLOOD UREA NITROGEN 35 mg/dL (7-20); CARBON DIOXIDE 17 mmol/L (22-30); CHLORIDE 108 mmol/L (98-107); GLUCOSE 204 mg/dL (75-110); POTASSIUM 3.6 mmol/L (3.6-5.0); SODIUM 138.4 mmol/L (137-145)
--- NOTE | 2018-07-14 21:38 | RADIOLOGY REPORT (SQ) ---
PROCEDURE: CT of the head without intravenous contrast HISTORY: Seizures Indication: Same as above Comparison: 06/30/2018 Technique: The study was done on 07/14/2018 at 9:[address] of the head was done without intravenous contrast was done in the orthogonal planes. This exam was performed according to our departmental dose-optimization program, which includes automated exposure control, adjustment of the mA and/or KV according to the patient's size and/or use of iterative reconstruction technique. FINDINGS: There is no intracranial hemorrhage, midline shift mass effect or acute focal infarct. If clinical concern exists regarding an acute ischemic/vascular pathology being responsible for patient's symptomatology, an MRI of the brain is more sensitive than the current study, in ruling out such a possibility. There is good nicole/white matter differentiation. The ventricular system is normal. The mastoid air cells are unremarkable . The paranasal sinuses are unremarkable . There is no visualization of acute fractures involving the calvarium or the skull base. IMPRESSION: There is no acute intracranial abnormality.
[2018-07-14 21:49] LABS: CALCIUM 6.4 mg/dL (8.4-10.2)
[2018-07-14] MEDS ORDERED: LEVETIRACETAM 1500 MG/NACL-ISO 1,500 MG/100 ML RTUPB IV SCH (22:00)
[2018-07-14] MEDS ORDERED: CALCIUM GLUCONATE 1000 MG/10 ML INJ IV ONE (22:20)
[2018-07-14] MEDS: TAMSULOSIN HCL 0.4 MG CAP.SR.24H PO SCH (23:18)
[2018-07-14] MEDS ORDERED: LEVETIRACETAM 500 MG/NACL-ISO 500 MG/100 ML RTUPB IV ONE (23:39)
[2018-07-14] MEDS ORDERED: LEVETIRACETAM 500 MG/NACL-ISO 1,000 MG/200 ML RTUPB IV ONE (23:48)
[2018-07-15] MEDS: HYDRALAZINE HCL 25 MG TABLET PO SCH ×2 (05:51→13:40)
[2018-07-15] MEDS: AMLODIPINE BESYLATE 10 MG TABLET PO SCH (09:24)
[2018-07-15] MEDS: CALCIUM CARBONATE 250 MG/VITAMIN D3 125 UNIT TABLET PO SCH (09:25)
[2018-07-15] MEDS: BUSPIRONE HCL 10 MG TABLET PO SCH (09:25)
[2018-07-15] MEDS: APIXABAN 2.5 MG TABLET PO SCH (09:25)
[2018-07-15] MEDS: POTASSIUM CHLORIDE 20 MEQ/15 ML UDCUP PO SCH (09:25)
[2018-07-15] MEDS: VALPROATE SODIUM SYRUP 250 MG/5 ML UDCUP PO SCH ×2 (09:26→13:40)
[2018-07-15] MEDS: MEGESTROL ACETATE SUSP 400 MG/10 ML UDCUP PO SCH (09:26)
[2018-07-15] MEDS: MULTIVITAMINS W-IRON TABLET, CHEWABLE PO SCH (09:27)
[2018-07-15] MEDS ORDERED: LEVETIRACETAM 500 MG TABLET PO SCH (10:00)
[2018-07-15 11:25] LABS: HEMATOCRIT 26.3 % (37.9-51.0); HEMOGLOBIN 8.9 g/dL (13.5-17.0); MEAN CORPUSCULAR HEMOGLOBIN 25.8 pg (27.0-33.4); MEAN CORPUSCULAR HGB CONC 34.1 g/dL (32.0-36.0); MEAN CORPUSCULAR VOLUME 76 fl (80-97); PLATELET COUNT 185 10^3/uL (150-450); RED BLOOD COUNT 3.47 10^6/uL (4.35-5.55); RED CELL DISTRIBUTION WIDTH 19.2 % (11.5-14.0); WHITE BLOOD COUNT 10.9 10^3/uL (4.0-10.5)
[2018-07-15 11:44] LABS: ALANINE AMINOTRANSFERASE 32 U/L (21-72); ALBUMIN 2.5 g/dL (3.5-5.0); ALKALINE PHOSPHATASE 544 U/L (38-126); ANION GAP 12 (5-19); ASPARTATE AMINO TRANSFERASE 217 U/L (17-59); BILIRUBIN,DIRECT 0.5 mg/dL (0.0-0.4); BILIRUBIN,TOTAL 0.7 mg/dL (0.2-1.3); BLOOD UREA NITROGEN 32 mg/dL (7-20); CARBON DIOXIDE 20 mmol/L (22-30); CHLORIDE 107 mmol/L (98-107); GLUCOSE 200 mg/dL (75-110); POTASSIUM 3.7 mmol/L (3.6-5.0); SODIUM 138.9 mmol/L (137-145); TOTAL PROTEIN 5.5 g/dL (6.3-8.2)
[2018-07-15 12:04] LABS: CALCIUM 6.4 mg/dL (8.4-10.2)
[2018-07-15 12:08] LABS: ABSOLUTE LYMPHOCYTES# (MANUAL) 1.3 10^3/uL (0.5-4.7); ABSOLUTE MONOCYTES # (MANUAL) 0.5 10^3/uL (0.1-1.4); BAND NEUTROPHILS % (MANUAL) 1 % (3-5); BASOPHILS % (MANUAL) 0 % (0-2); EOSINOPHILS % (MANUAL) 0 % (0-6); LYMPHOCYTES % (MANUAL) 12 % (13-45); MONOCYTES % (MANUAL) 5 % (3-13); SEGMENTED NEUTROPHILS % (MAN) 82 % (42-78); TOTAL CELLS COUNTED 100
[2018-07-15 12:09] LABS: ANISOCYTOSIS 2+; HYPOCHROMASIA 1+; OVALOCYTES 2+; PLATELET COMMENT ADEQUATE; POIKILOCYTOSIS 2+; POLYCHROMASIA SLIGHT; SCHISTOCYTES SLIGHT; TOXIC GRANULATION SLIGHT; TOXIC VACUOLATION PRESENT
[2018-07-15 13:39] VITALS: BP 113/48
--- NOTE | 2018-07-15 17:12 | PDOC PROGRESS REPORT ---
Subjective Progress Note for:: 07/15/18 Subjective:: The patient is seen on the rounds this morning. He is awake and alert. He is discharged to the [facility]hab has been postponed from yesterday because of late completion of the discharge and apparently the patient had what sounds to be like a pseudoseizure. Lab results were reviewed today they all appeared to be within normal limits except for some abnormal LFTs most probably related to the prostate cancer with metastasis and medication. The patient is stable for the discharge and will be transferred to senior living rehab Reason For Visit: ALTERED MENTAL STATUS,METABOLIC ENCEPHALOPATHY Physical Exam Vital Signs: Temp Pulse Resp BP Pulse Ox 98.8 F 77 18 113/48 L 99 07/15/18 12:00 07/15/18 12:00 07/15/18 12:00 07/15/18 12:00 07/15/18 12:00 Intake & Output 07/14/18 07/15/18 07/16/18 06:59 06:59 06:59 Intake Total 831 598 Balance 831 598 Weight 91.2 kg 91.1 kg General appearance: PRESENT: mild distress Head exam: PRESENT: atraumatic Eye exam: PRESENT: conjunctiva pink Mouth exam: PRESENT: moist Neck exam: PRESENT: carotid bruit. ABSENT: JVD Cardiovascular exam: PRESENT: irregular rhythm, +S1, +S2 GI/Abdominal exam: PRESENT: normal bowel sounds, soft Neurological exam: PRESENT: alert, awake Psychiatric exam: PRESENT: anxious, flat affect Results Laboratory Results: 07/15/18 11:10 07/15/18 11:10 07/14/18 07/15/18 07/15/18 20:40 11:10 11:10 WBC 10.9 H RBC 3.47 L Hgb 8.9 L Hct 26.3 L MCV 76 L MCH 25.8 L MCHC 34.1 RDW 19.2 H Plt Count 185 Seg Neutrophils % Not Reportable Lymphocytes % Not Reportable Monocytes % Not Reportable Eosinophils % Not Reportable Basophils % Not Reportable Absolute Neutrophils Not Reportable Absolute Lymphocytes Not Reportable Absolute Monocytes Not Reportable Absolute Eosinophils Not Reportable Absolute Basophils Not Reportable Sodium 138.4 138.9 Potassium 3.6 3.7 Chloride 108 H 107 Carbon Dioxide 17 L 20 L Anion Gap 13 12 BUN 35 H 32 H Creatinine 1.20 1.21 Est GFR ( Amer) > 60 > 60 Est GFR (Non-Af Amer) 59 L 59 L Glucose 204 H 200 H Calcium 6.4 L* 6.4 L* Magnesium 1.7 Total Bilirubin 0.7 AST 217 H ALT 32 Alkaline Phosphatase 544 H Total Protein 5.5 L Albumin 2.5 L 07/01/18 07/01/18 07/02/18 03:54 03:54 16:05 Creatine Kinase 617 H 367 H NT-Pro-B Natriuret Pep 9380 H 07/03/18 07/03/18 07/04/18 08:45 08:45 03:53 Creatine Kinase 291 H NT-Pro-B Natriuret Pep 8430 H 9560 H Impressions: Abdomen/Pelvis CT 06/30/18 00:00 IMPRESSION: Fluid overload with bilateral moderate pleural effusions and small amount of ascites. Bibasilar consolidation atelectasis versus pneumonia Head MRI 07/01/18 14:54 IMPRESSION: Mild involutional changes of aging with no acute intracranial imaging findings on this slightly limited study. EVIDENCE OF ACUTE STROKE: NO. Lumbar Puncture 07/02/18 10:40 IMPRESSION: Lumbar puncture under fluoroscopy. No immediate complication. Thoracentesis Ultrasound 07/03/18 10:19 IMPRESSION: SUCCESSFUL THORACENTESIS USING ULTRASOUND GUIDANCE. Chest X-Ray 07/03/18 18:00 IMPRESSION: Stable pulmonary exam demonstrating small bilateral pleural effusions. Guidance Fluoroscopy 07/06/18 00:00 IMPRESSION: SUCCESSFUL PLACEMENT OF A 5 FR DUAL LUMEN 42 CM PICC IN THE LEFT BASILIC VEIN. Interventional Vascular Procedure 07/06/18 00:00 IMPRESSION: SUCCESSFUL PLACEMENT OF A 5 FR DUAL LUMEN 42 CM PICC IN THE LEFT BASILIC VEIN. PICC Line Insertion 07/06/18 00:00 IMPRESSION: SUCCESSFUL PLACEMENT OF A 5 FR DUAL LUMEN 42 CM PICC IN THE LEFT BASILIC VEIN. Head CT 07/14/18 00:00 IMPRESSION: There is no acute intracranial abnormality. Assessment & Plan - Diagnosis (1) Altered mental status Qualifiers: Altered mental status type: delirium Qualified Code(s): R41.0 - Disorientation, unspecified Is this a current diagnosis for this admission?: Yes (2) Dehydration Is this a current diagnosis for this admission?: Yes (3) Hypernatremia Is this a current diagnosis for this admission?: Yes (4) New onset atrial fibrillation Is this a current diagnosis for this admission?: Yes Plan: Stable with medication. Rate controlled. Had a run of irregular heartbeats last night which were corrected with an infusion of calcium (5) CKD (chronic kidney disease) stage 3, GFR 30-59 ml/min Is this a current diagnosis for this admission?: Yes Plan: Stable continue hydration and current treatment (6) Hypertension Qualifiers: Hypertension type: unspecified Qualified Code(s): I10 - Essential (primary ) hypertension Is this a current diagnosis for this admission?: Yes (7) Physical deconditioning Is this a current diagnosis for this admission?: Yes Plan: Needs to have rehab at the senior living with PT twice a day (8) Prostate cancer Is this a current diagnosis for this admission?: Yes (9) Memory loss, short term Is this a current diagnosis for this admission?: Yes (10) Acute psychosis Is this a current diagnosis for this admission?: Yes (11) Pulmonary hypertension Is this a current diagnosis for this admission?: Yes
[2018-07-16] MEDS ORDERED: GLIMEPIRIDE 1 MG TABLET PO SCH (08:00)
== END 2018-07-15 16:07 | DRG 682 ==
LOC: ER 08:53 → EH 12:55 → 4N 14:13
PROVIDERS: ADMIT Internal Medicine; ATTEND Internal Medicine
PROC: 009U3ZX Drainage of Spinal Canal, Percutaneous Approach, Diagnostic (ICD-10-PCS; 2018-07-02)
PROC: B01BZZZ Fluoroscopy of Spinal Cord (ICD-10-PCS; 2018-07-02)
PROC: 0W993ZX Drainage of Right Pleural Cavity, Percutaneous Approach, Diagnostic (ICD-10-PCS; 2018-07-03)
PROC: 02HV33Z Insertion of Infusion Device into Superior Vena Cava, Percutaneous Approach (ICD-10-PCS; principal; 2018-07-06)
PROC: B518ZZA Fluoroscopy of Superior Vena Cava, Guidance (ICD-10-PCS; 2018-07-06)
PROC: B548ZZA Ultrasonography of Superior Vena Cava, Guidance (ICD-10-PCS; 2018-07-06)
DX: N17.9 Acute kidney failure, unspecified (principal); G93.41 Metabolic encephalopathy; E87.0 Hyperosmolality and hypernatremia; M62.82 Rhabdomyolysis; C78.02 Secondary malignant neoplasm of left lung; C79.51 Secondary malignant neoplasm of bone; E44.0 Moderate protein-calorie malnutrition; F05 Delirium due to known physiological condition; J91.8 Pleural effusion in other conditions classified elsewhere; I13.0 Hypertensive heart and chronic kidney disease with heart failure and stage 1 through stage 4 chronic kidney disease, or unspecified chronic kidney disease; E86.0 Dehydration; I48.91 Unspecified atrial fibrillation; J02.9 Acute pharyngitis, unspecified; C61 Malignant neoplasm of prostate; N18.3 Chronic kidney disease, stage 3 (moderate); D63.8 Anemia in other chronic diseases classified elsewhere; D63.0 Anemia in neoplastic disease; Z96.652 Presence of left artificial knee joint; Z79.899 Other long term (current) drug therapy; E11.22 Type 2 diabetes mellitus with diabetic chronic kidney disease; I50.9 Heart failure, unspecified; M10.9 Gout, unspecified; F32.9 Major depressive disorder, single episode, unspecified; D72.829 Elevated white blood cell count, unspecified; R29.810 Facial weakness; E11.65 Type 2 diabetes mellitus with hyperglycemia; R00.1 Bradycardia, unspecified; F03.90 Unspecified dementia, unspecified severity, without behavioral disturbance, psychotic disturbance, mood disturbance, and anxiety; R13.10 Dysphagia, unspecified; I27.20 Pulmonary hypertension, unspecified; I08.1 Rheumatic disorders of both mitral and tricuspid valves
CPT/HCPCS: 32555; 36415; 36569; 36600; 62270; 70450; 70551; 71045; 74176; 76937; 77001; 77003; 80048; 80053; 80074; 80202; 80307; 81001; 82140; 82150; 82550; 82553; 82565; 82607; 82746; 82803; 82945; 82962; 83036; 83605; 83615; 83690; 83735; 83880; 84155; 84157; 84443; 84484; 85025; 85027; 85610; 85730; 86592; 86738; 86850; 86900; 86901; 87040; 87070; 87075; 87086; 87205; 87252; 87493; 89050; 93005; 93010; 93306; 94640; 96361; 96365; 99285; G8978-GP; G8979-GP; G8987-GO; G8988-GO; G8996-GN; G8997-GN; J0610; J0696; J1630; J1642; J1644; J1815; J1940; J1953; J2270; J2543; J3370; J3490; J7030; J7060; S0028

== ENCOUNTER 2018-07-16 20:08 | Inpatient (IN) | payer MEDICARE ==
--- NOTE | 2018-07-16 20:27 | ER Document Report ---
ED General - General Stated Complaint: BUTTOCKS PAIN Time Seen by Provider: 07/16/18 20:18 Mode of Arrival: Stretcher Information source: Outside Facility Records TRAVEL OUTSIDE OF THE [place] IN LAST 30 DAYS: No - HPI Patient complains to provider of: Buttock pain Quality of pain: Achy Associated symptoms: None Exacerbated by: Denies Relieved by: Denies Notes: Patient is a 72-year-old male with a history of dementia sent by Veronica Baez for evaluation of buttock pain, patient is unable to provide me with any meaningful detail regarding his history, he is noted to have a small sacral decubitus ulcer, stage I measuring approximately 1 cm, it is tender to palpate over this area, he denies any injury, no abdominal pain, he does report that he he is not been eating or drinking well lately, denies any vomiting, no diarrhea - Related Data Allergies/Adverse Reactions: No Known Allergies Allergy (Verified 07/16/18 20:45) Past Medical History - General Information source: Patient, Outside Facility Records - Social History Smoking Status: Unknown if Ever Smoked Family History: Reviewed & Not Pertinent - Past Medical History Cardiac Medical History: Reports: Hx Congestive Heart Failure, Hx Hypertension Denies: Hx Heart Attack Pulmonary Medical History: Reports: Hx Pneumonia Denies: Hx Asthma Neurological Medical History: Denies: Hx Cerebrovascular Accident, Hx Seizures Endocrine Medical History: Reports: Hx Diabetes Mellitus Type 1 Renal/ Medical History: Reports: Hx Kidney Stones. Denies: Hx Peritoneal Dialysis Malignancy Medical History: Reports Hx Prostate Cancer - stage IV with mets to lung GI Medical History: Denies: Hx Hepatitis, Hx Hiatal Hernia, Hx Ulcer Musculoskeletal Medical History: Reports Hx Gout Psychiatric Medical History: Reports: Hx Depression Infectious Medical History: Denies: Hx Hepatitis Past Surgical History: Reports: Hx Orthopedic Surgery - lt knee replacement, Hx Tonsillectomy, Other - Prostate biopsy, fiducial placement. Denies: Hx Open Heart Surgery, Hx Pacemaker - Immunizations Hx Diphtheria, Pertussis, Tetanus Vaccination: Yes Hx Pneumococcal Vaccination: 08/10/17 Review of Systems - Review of Systems Constitutional: No symptoms reported EENT: No symptoms reported Cardiovascular: No symptoms reported Respiratory: No symptoms reported Gastrointestinal: No symptoms reported Genitourinary: No symptoms reported Male Genitourinary: No symptoms reported Musculoskeletal: See HPI Skin: See HPI Hematologic/Lymphatic: No symptoms reported Neurological/Psychological: No symptoms reported -: Yes All other systems reviewed and negative Physical Exam - Vital signs Vitals: Pulse Ox 99 07/16/18 20:16 Interpretation: Normal - General General appearance: Alert In distress: None - HEENT Head: Normocephalic, Atraumatic Eyes: Normal Pupils: PERRL Mucous membranes: Dry - Respiratory Respiratory status: No respiratory distress Chest status: Nontender Breath sounds: Normal Chest palpation: Normal - Cardiovascular Rhythm: Regular Heart sounds: Normal auscultation Murmur: No - Abdominal Inspection: Normal Distension: No distension Bowel sounds: Normal Tenderness: Nontender Organomegaly: No organomegaly - Genitourinary Inspection: Normal - Back Back: Normal - Extremities General upper extremity: Edema General lower extremity: Edema - Neurological Cognition: Confused Orientation: Disoriented to events Sheridan Coma Scale Eye Opening: Spontaneous Sheridan Coma Scale Verbal: Confused Sheridan Coma Scale Motor: Obeys Commands Jacey Coma Scale Total: 14 - Skin Skin Temperature: Warm Skin Moisture: Dry Skin Color: Normal Skin irregularity: Decubitus ulcer - Stage I measuring approximately 1 cm, no drainage, no swelling, mild erythema Course - Re-evaluation Re-evalutation: 07/16/18 22:41 Patient with complaint of buttock/coccyx pain, he does have a new stage I sacral decubitus ulcer, there is mild tenderness when palpating this area, there is no drainage or surrounding erythema, we did do basic labs on patient and he is noted to have a calcium of 5.8 which is slightly lower than his baseline of 6.2 on previous admission, his BNP is also elevated, he is noted to have edema in upper and lower extremities, chest x-ray does show some evidence of vascular congestion, however he is satting 99 on room air and has no complaints of shortness of breath, he remains in atrial fibrillation which appears to be rate controlled in the 80-90 range, urinalysis shows no signs of an fraction, chest x-ray shows no signs of an infection and patient is afebrile with otherwise stable vital signs, therefore patient will be given 2 A of IV calcium gluconate, patient was discussed with the hospitalist who knew this patient quite well from previous admissions, and is agreeable to admitting for further evaluation and treatment 07/16/18 23:03 - Vital Signs Vital signs: Temp Pulse Resp BP Pulse Ox 97.6 F 18 110/53 L 98 07/16/18 20:27 07/16/18 22:57 07/16/18 22:57 07/16/18 22:57 - Laboratory Result Diagrams: 07/16/18 21:35 07/16/18 21:35 Laboratory results interpreted by me: 07/16/18 07/16/18 07/16/18 21:09 21:35 21:35 WBC 11.9 H RBC 3.51 L Hgb 8.9 L Hct 26.9 L MCV 77 L MCH 25.5 L RDW 19.2 H Seg Neuts % (Manual) 87 H Lymphocytes % (Manual) 3 L Abs Neuts (Manual) 10.4 H Abs Lymphs (Manual) 0.4 L Chloride 108 H Carbon Dioxide 17 L BUN 34 H Glucose 177 H Calcium 5.8 L* Direct Bilirubin 0.6 H AST 235 H Alkaline Phosphatase 645 H NT-Pro-B Natriuret Pep Total Protein 6.1 L Albumin 2.8 L Urine Protein 100 H Urine Blood SMALL H Ur Leukocyte Esterase SMALL H 07/16/18 21:35 WBC RBC Hgb Hct MCV MCH RDW Seg Neuts % (Manual) Lymphocytes % (Manual) Abs Neuts (Manual) Abs Lymphs (Manual) Chloride Carbon Dioxide BUN Glucose Calcium Direct Bilirubin AST Alkaline Phosphatase NT-Pro-B Natriuret Pep 57467 H Total Protein Albumin Urine Protein Urine Blood Ur Leukocyte Esterase - Diagnostic Test Radiology reviewed: Image reviewed, Reports reviewed - EKG Interpretation by Me Rate: Normal Rhythm: A.Fib When compared to previous EKG there are: No significant change Procedures - Additional Procedures IV insertion Time performed: 21:28 Additional Procedures: IV insertion - 20-gauge IV catheter placed in right antecubital space using ultrasound guidance Discharge - Discharge Clinical Impression: Decubitus ulcer of sacral region, stage 1, Hypocalcemia Congestive heart failure Qualifiers: Heart failure type: unspecified Heart failure chronicity: chronic Qualified Code(s): I50.9 - Heart failure, unspecified Condition: Fair Disposition: ADMITTED INPATIENT Admitting Provider: Hospitalist Unit Admitted: Telemetry Referrals: SHAWN HERNANDEZ MD [Primary Care Provider] - Follow up as needed
[2018-07-16 21:34] LABS: APPEARANCE,URINE CLOUDY; BILIRUBIN,URINE NEGATIVE (NEGATIVE); COLOR,URINE YELLOW; GLUCOSE, URINE NEGATIVE (NEGATIVE); KETONES,URINE NEGATIVE (NEGATIVE); LEUKOCYTE ESTERASE,URINE SMALL (NEGATIVE); NITRITE,URINE NEGATIVE (NEGATIVE); PROTEIN,URINE 100 mg/dL (NEGATIVE); URINE SPECIFIC GRAVITY 1.014; UROBILINOGEN,URINE NEGATIVE mg/dL (<2.0)
[2018-07-16 21:55] LABS: HEMATOCRIT 26.9 % (37.9-51.0); HEMOGLOBIN 8.9 g/dL (13.5-17.0); MEAN CORPUSCULAR HEMOGLOBIN 25.5 pg (27.0-33.4); MEAN CORPUSCULAR HGB CONC 33.2 g/dL (32.0-36.0); MEAN CORPUSCULAR VOLUME 77 fl (80-97); PLATELET COUNT 203 10^3/uL (150-450); RED BLOOD COUNT 3.51 10^6/uL (4.35-5.55); RED CELL DISTRIBUTION WIDTH 19.2 % (11.5-14.0); WHITE BLOOD COUNT 11.9 10^3/uL (4.0-10.5)
[2018-07-16 22:04] LABS: ALANINE AMINOTRANSFERASE 30 U/L (21-72); ALBUMIN 2.8 g/dL (3.5-5.0); ALKALINE PHOSPHATASE 645 U/L (38-126); ANION GAP 16 (5-19); ASPARTATE AMINO TRANSFERASE 235 U/L (17-59); BILIRUBIN,DIRECT 0.6 mg/dL (0.0-0.4); BILIRUBIN,TOTAL 0.8 mg/dL (0.2-1.3); BLOOD UREA NITROGEN 34 mg/dL (7-20); CARBON DIOXIDE 17 mmol/L (22-30); CHLORIDE 108 mmol/L (98-107); GLUCOSE 177 mg/dL (75-110); POTASSIUM 3.6 mmol/L (3.6-5.0); SODIUM 141.3 mmol/L (137-145); TOTAL PROTEIN 6.1 g/dL (6.3-8.2)
--- NOTE | 2018-07-16 22:12 | RADIOLOGY REPORT (SQ) ---
EXAM DESCRIPTION: XR SACRUM COCCYX 2 OR MORE VIEWS COMPLETED DATE/TME: 07/16/2018 20:24 CLINICAL HISTORY: 72 years, Male, pain COMPARISON: None. NUMBER OF VIEWS: TECHNIQUE: LIMITATIONS: None. FINDINGS: No evidence of fracture involving the sacrum and coccyx. There are degenerative changes in the lower lumbar spine. IMPRESSION: No fracture. copyright 2010 [employer]- All Rights Reserved
[2018-07-16 22:17] LABS: CALCIUM 5.8 mg/dL (8.4-10.2)
[2018-07-16 22:19] LABS: ABSOLUTE LYMPHOCYTES# (MANUAL) 0.4 10^3/uL (0.5-4.7); ABSOLUTE MONOCYTES # (MANUAL) 1.1 10^3/uL (0.1-1.4); ABSOLUTE NEUTROPHILS# (MANUAL) 10.4 10^3/uL (1.7-8.2); BASOPHILS % (MANUAL) 1 % (0-2); EOSINOPHILS % (MANUAL) 0 % (0-6); LYMPHOCYTES % (MANUAL) 3 % (13-45); MONOCYTES % (MANUAL) 9 % (3-13); SEGMENTED NEUTROPHILS % (MAN) 87 % (42-78); TOTAL CELLS COUNTED 100
[2018-07-16 22:23] LABS: ANISOCYTOSIS 2+; OVALOCYTES SLIGHT; PLATELET COMMENT ADEQUATE; PLATELET LARGE PRESENT; POIKILOCYTOSIS SLIGHT; POLYCHROMASIA SLIGHT; TOXIC VACUOLATION PRESENT
[2018-07-16] MEDS ORDERED: CALCIUM GLUCONATE 1000 MG/10 ML INJ IV ONE ×2 (22:31→22:39)
--- NOTE | 2018-07-16 22:48 | RADIOLOGY REPORT (SQ) ---
EXAM DESCRIPTION: XR CHEST 1 VIEW COMPLETED DATE/TME: 07/16/2018 22:18 CLINICAL HISTORY: 72 years Male, chf COMPARISON: 07/03/18 NUMBER OF VIEWS/TECHNIQUE: 1/AP FINDINGS: Bilateral lower thoracic opacity/effusion. Normal cardiac silhouette size. No pneumothorax. Stable bony thorax. IMPRESSION: Increased bilateral lower thoracic opacity/effusion.
[2018-07-16] MEDS ORDERED: IPRATROPIUM/ALBUTEROL 0.5-2.5 MG/3 ML AMPUL NEB PRN (23:29)
[2018-07-16] MEDS ORDERED: MAGNESIUM HYDROXIDE SUSP 30 ML UDCUP PO PRN (23:29)
[2018-07-16] MEDS ORDERED: CHOLECALCIFEROL (D3) 1,000 UNIT TABLET PO ONE (23:45)
[2018-07-17] MEDS: HYDRALAZINE HCL 25 MG TABLET PO SCH ×5 (00:07→23:35)
[2018-07-17] MEDS: ACETAMINOPHEN 325 MG TABLET PO PRN ×2 (05:14→14:33)
--- NOTE | 2018-07-17 05:28 | PDOC H&P ---
History of Present Illness Admission Date/PCP: 07/16/18 23:30 SHAWN HERNANDEZ MD Patient complains of: Sacral pain History of Present Illness: HARMONY RODRIGUEZ is a 72 year old male resident of assisted living with a past medical history of prostate cancer with bone metastasis, type 2 diabetes, stage III chronic kidney disease, congestive heart failure, hypertension, malnutrition , hypocalcemia and seizure. Patient presents 24 hours after discharge with complaints of sacral pain. He is found to have a 1 cm stage II decubitus of the sacrum, workup reveals hypocalcemia, malnutrition, metabolic acidosis and congestive heart failure. He receives IV calcium and referred to the hospitalist for admission. Patient is a poor historian and unable to provide history and subsequently obtained by the medical record. Past Medical History Cardiac Medical History: Reports: Congestive Heart Failure, Hypertension Denies: Myocardial Infarction Pulmonary Medical History: Reports: Pneumonia Denies: Asthma Neurological Medical History: Denies: Seizures Endocrine Medical History: Reports: Diabetes Mellitus Type 1 Malignancy Medical History: Reports: Other - Prostate cancer with bony metastases GI Medical History: Denies: Hepatitis, Hiatal Hernia Musculoskeltal Medical History: Reports: Gout Psychiatric Medical History: Reports: Depression Hematology: Reports: Anemia Denies: Sickle Cell Disease Past Surgical History Past Surgical History: Reports: Orthopedic Surgery - lt knee replacement, Tonsillectomy, Other - Prostate biopsy, fiducial placement Denies: Pacemaker Social History Information Source: Emergency Med Personnel, [facility] Records Lives with: [facility] Smoking Status: Unknown if Ever Smoked Frequency of Alcohol Use: None Hx Recreational Drug Use: No Drugs: None Hx Prescription Drug Abuse: No - Advance Directive Resuscitation Status: Full Code Family History Family History: None - Unobtainable secondary to delirium, Other Parental Family History Reviewed: No Children Family History Reviewed: No Sibling(s) Family History Reviewed.: No Medication/Allergy Home Medications: Allopurinol [Zyloprim 300 mg Tablet] 300 mg PO DAILY 06/17/18 Atorvastatin Calcium [Lipitor 10 mg Tablet] 10 mg PO QHS 06/17/18 Latanoprost/Pf [Latanoprost 0.005% Eye Drop] 1 drop OS QHS 06/17/18 Tamsulosin HCl [Flomax 0.4 mg Cap.sr] 0.4 mg PO QHS 06/17/18 Acetaminophen [Tylenol 325 mg Tablet] 650 mg PO Q4HP PRN tablet 06/24/18 Amlodipine Besylate [Norvasc 10 mg Tablet] 10 mg PO DAILY tablet 06/24/18 Bicalutamide [Casodex 50 mg Tablet] 50 mg PO DAILY tablet 06/24/18 Acetaminophen [Tylenol 325 mg Tablet] 650 mg PO Q6HP PRN tablet 07/14/18 Apixaban [Eliquis 2.5 mg Tablet] 2.5 mg PO BID tablet 07/14/18 Buspirone HCl [Buspar 10 mg Tablet] 10 mg PO BID tablet 07/14/18 Calcium Carbonate/Vitamin D3 [Os-Trae 250 mg with Vitamin D 125 Units] 1 tab PO BID tablet 07/14/18 Hydralazine HCl [Apresoline 25 mg Tablet] 25 mg PO Q6 tablet 07/14/18 Loperamide HCl [Imodium 2 mg Capsule] 2 mg PO Q4HP PRN capsule 07/14/18 Megestrol Acetate [Megace Carmela 400 mg/10 ml Udcup] 400 mg PO DAILY udc Multivitamins W-Iron [Flintstones Chewable Multivit W/Fe Tab] 2 tab PO DAILY tab.chew 07/14/18 Potassium Chloride [Kaon-Cl 20 Meq/15 ml Udcup] 10 meq PO Q12 udc 07/14/18 Risperidone [Risperdal 0.25 mg Tablet] 0.25 mg PO BIDP PRN tablet 07/14/18 Valproate Sodium [Depakene Syrup 250 mg/5 ml Udcup] 125 mg PO QID udc 07/14/18 Glimepiride [Amaryl 1 mg Tablet] 1 mg PO QAM tablet 07/15/18 Levetiracetam [Keppra 500 mg Tablet] 500 mg PO Q12 tablet 07/15/18 Allergies/Adverse Reactions: No Known Allergies Allergy (Verified 07/16/18 20:45) Review of Systems ROS unobtainable: Due to mental status Physical Exam Vital Signs: Temp Pulse Resp BP Pulse Ox 97.5 F 64 20 119/59 L 100 07/17/18 04:00 07/17/18 04:00 07/17/18 04:00 07/17/18 04:00 07/17/18 04:00 Intake & Output 07/15/18 07/16/18 07/17/18 11:59 11:59 11:59 Weight 74.5 kg General appearance: PRESENT: no acute distress, cooperative, mild distress, thin. ABSENT: disheveled Head exam: PRESENT: atraumatic, normocephalic Eye exam: PRESENT: conjunctiva pink, EOMI, PERRLA. ABSENT: scleral icterus Ear exam: PRESENT: normal external ear exam Mouth exam: PRESENT: moist, tongue midline. ABSENT: dry mucosa Neck exam: ABSENT: carotid bruit, JVD, lymphadenopathy, thyromegaly Respiratory exam: PRESENT: crackles, prolonged expiratory phas, symmetrical. ABSENT: rhonchi, stridor Cardiovascular exam: PRESENT: RRR. ABSENT: diastolic murmur, rubs, systolic murmur Pulses: PRESENT: normal dorsalis pedis pul Vascular exam: PRESENT: normal capillary refill GI/Abdominal exam: PRESENT: normal bowel sounds, soft. ABSENT: distended, guarding, mass, organolmegaly, rebound, tenderness Rectal exam: PRESENT: deferred Extremities exam: PRESENT: full ROM. ABSENT: calf tenderness, clubbing, pedal edema Musculoskeletal exam: PRESENT: other - Global muscular atrophy Neurological exam: PRESENT: altered, oriented to person, CN II-XII grossly intact Psychiatric exam: PRESENT: unusual affect Skin exam: PRESENT: dry, warm. ABSENT: cyanosis, intact - 1 cm stage II sacral decubiti, rash Adult Front & Back Image: 1 - 1*1 cm stage II sacral decubiti Results Laboratory Results: 07/16/18 23:59 Ionized Calcium Rohan 0.90 L Impressions: Sacrum and Coccyx X-Ray 07/16/18 20:24 IMPRESSION: No fracture. copyright 2011 [employer]- All Rights Reserved Chest X-Ray 07/16/18 22:18 IMPRESSION: Increased bilateral lower thoracic opacity/effusion. Assessment & Plan - Diagnosis (1) Hypocalcemia Is this a current diagnosis for this admission?: Yes Plan: Unclear cause follow-up ionized calcium and workup, likely vitamin D deficiency , calcium gluconate and vitamin D replacement ordered. Follow-up chemistry (2) Vitamin D deficiency Is this a current diagnosis for this admission?: Yes Plan: Empiric replacement, follow-up vitamin the 25 hydroxy level (3) Congestive heart failure Qualifiers: Heart failure type: unspecified Heart failure chronicity: chronic Qualified Code(s): I50.9 - Heart failure, unspecified Is this a current diagnosis for this admission?: Yes Plan: Complicated by malnutrition, hypocalcemia, hypoalbuminemia and prostate cancer. Diuresis as tolerated (4) Decubitus ulcer of sacral region, stage 1 Is this a current diagnosis for this admission?: Yes Plan: Specialty bed, repositioning (5) Abnormal LFTs Is this a current diagnosis for this admission?: Yes Plan: Prostate cancer with liver metastasis. Avoid hepatotoxic meds (6) Altered mental status Qualifiers: Altered mental status type: delirium Qualified Code(s): R41.0 - Disorientation, unspecified Is this a current diagnosis for this admission?: Yes Plan: Underlying depression and hypocalcemia hopefully improves with calcium resuscitation. (7) CKD (chronic kidney disease) stage 3, GFR 30-59 ml/min Is this a current diagnosis for this admission?: Yes Plan: Likely secondary to poor GFR with intravascular depletion and low oncotic state , avoid nephrotoxic meds and doses chemistry (8) Diabetes 1.5, managed as type 2 Is this a current diagnosis for this admission?: Yes Plan: Outpatient regiment with Humalog sliding scale ordered (9) Failure to thrive Is this a current diagnosis for this admission?: Yes Plan: Strongly consider readdressing CODE STATUS and consideration of hospice when mental status improves versus consult power of litigation attorney associate given recurrent recent hospitalizations. - Time Time Spent: 50 to 70 Minutes - Inpatient Certification Medical Necessity: Need Close Monitoring Due to Risk of Patient Decompensation
[2018-07-17 07:36] LABS: ANION GAP 13 (5-19); BLOOD UREA NITROGEN 35 mg/dL (7-20); CARBON DIOXIDE 19 mmol/L (22-30); CHLORIDE 111 mmol/L (98-107); GLUCOSE 168 mg/dL (75-110); PHOSPHORUS 3.8 mg/dL (2.5-4.5); POTASSIUM 3.3 mmol/L (3.6-5.0); SODIUM 143.3 mmol/L (137-145)
[2018-07-17 07:49] LABS: CALCIUM 6.1 mg/dL (8.4-10.2)
[2018-07-17 07:51] LABS: HEMATOCRIT 23.9 % (37.9-51.0); HEMOGLOBIN 8.2 g/dL (13.5-17.0); MEAN CORPUSCULAR HEMOGLOBIN 25.7 pg (27.0-33.4); MEAN CORPUSCULAR HGB CONC 34.2 g/dL (32.0-36.0); MEAN CORPUSCULAR VOLUME 75 fl (80-97); PLATELET COUNT 168 10^3/uL (150-450); RED BLOOD COUNT 3.17 10^6/uL (4.35-5.55); RED CELL DISTRIBUTION WIDTH 18.7 % (11.5-14.0); WHITE BLOOD COUNT 9.8 10^3/uL (4.0-10.5)
[2018-07-17 08:25] LABS: ABSOLUTE LYMPHOCYTES# (MANUAL) 0.5 10^3/uL (0.5-4.7); ABSOLUTE MONOCYTES # (MANUAL) 0.6 10^3/uL (0.1-1.4); ABSOLUTE NEUTROPHILS# (MANUAL) 8.7 10^3/uL (1.7-8.2); ANISOCYTOSIS 2+; BASOPHILS % (MANUAL) 0 % (0-2); EOSINOPHILS % (MANUAL) 0 % (0-6); HYPOCHROMASIA 1+; LYMPHOCYTES % (MANUAL) 5 % (13-45); MONOCYTES % (MANUAL) 6 % (3-13); OVALOCYTES 1+; PLATELET COMMENT ADEQUATE; PLATELET GIANT PRESENT; POIKILOCYTOSIS 1+; SEGMENTED NEUTROPHILS % (MAN) 89 % (42-78); TARGET CELLS SLIGHT; TEAR DROP CELLS SLIGHT; TOTAL CELLS COUNTED 100
[2018-07-17] MEDS ORDERED: CHOLECALCIFEROL (D3) 1,000 UNIT TABLET PO SCH (10:00)
[2018-07-17] MEDS: BUSPIRONE HCL 10 MG TABLET PO SCH ×2 (10:52→18:20)
[2018-07-17] MEDS: LEVETIRACETAM 500 MG TABLET PO SCH ×2 (10:52→23:34)
[2018-07-17] MEDS: VALPROATE SODIUM SYRUP 250 MG/5 ML UDCUP PO SCH ×4 (10:53→23:34)
[2018-07-17] MEDS: MEGESTROL ACETATE SUSP 400 MG/10 ML UDCUP PO SCH (10:53)
[2018-07-17] MEDS: APIXABAN 2.5 MG TABLET PO SCH ×2 (10:53→18:20)
[2018-07-17] MEDS: CHOLECALCIFEROL (D3) 1,000 UNIT TABLET PO SCH (10:53)
[2018-07-17] MEDS ORDERED: ERGOCALCIFEROL (VITAMIN D2) 50000 UNIT (1.25 MG) CAPSULE PO ONE (11:00)
[2018-07-17] MEDS: RISPERIDONE 0.25 MG TABLET PO PRN ×2 (14:34→23:39)
[2018-07-17] MEDS: ATORVASTATIN CALCIUM 10 MG TABLET PO SCH (23:34)
[2018-07-17] MEDS: TAMSULOSIN HCL 0.4 MG CAP.SR.24H PO SCH (23:34)
[2018-07-18] MEDS ORDERED: CALCIUM GLUCONATE 2,000 MG in DEXTROSE 5%-WATER 100 ML IV ONE (02:00)
[2018-07-18] MEDS: HYDRALAZINE HCL 25 MG TABLET PO SCH ×3 (05:09→18:34)
[2018-07-18 06:36] LABS: ANION GAP 15 (5-19); BLOOD UREA NITROGEN 37 mg/dL (7-20); CARBON DIOXIDE 18 mmol/L (22-30); CHLORIDE 110 mmol/L (98-107); GLUCOSE 172 mg/dL (75-110); POTASSIUM 3.3 mmol/L (3.6-5.0); SODIUM 142.8 mmol/L (137-145)
[2018-07-18 06:48] LABS: CALCIUM 6.4 mg/dL (8.4-10.2)
--- NOTE | 2018-07-18 10:53 | EKG REPORT ---
SEVERITY:- ABNORMAL ECG - ATRIAL FIBRILLATION LOW VOLTAGE IN FRONTAL LEADS : Confirmed by: Kayy Kimble 18-Jul-2018 10:51:38
--- NOTE | 2018-07-18 10:57 | PDOC PROGRESS REPORT ---
Subjective Progress Note for:: 07/18/18 Subjective:: The patient is feeling better today Reason For Visit: HYPOCALCEMIA, VIT D DEF, MALNUTRITION ACIDOSIS Physical Exam Vital Signs: Temp Pulse Resp BP Pulse Ox 98.5 F 101 H 14 128/49 H 98 07/18/18 07:23 07/18/18 08:42 07/18/18 08:42 07/18/18 07:23 07/18/18 08:42 Intake & Output 07/17/18 07/18/18 07/19/18 06:59 06:59 06:59 Intake Total 222 840 Output Total 110 Balance 222 730 Weight 74.5 kg 74.9 kg General appearance: PRESENT: no acute distress Head exam: PRESENT: atraumatic, normocephalic Eye exam: PRESENT: PERRLA. ABSENT: conjunctival injection, scleral icterus Ear exam: PRESENT: normal external ear exam Mouth exam: PRESENT: moist Respiratory exam: PRESENT: clear to auscultation yuliya, symmetrical Cardiovascular exam: PRESENT: RRR, +S1, +S2 GI/Abdominal exam: PRESENT: normal bowel sounds, soft. ABSENT: tenderness Extremities exam: ABSENT: pedal edema Results Laboratory Results: 07/17/18 06:58 07/18/18 05:15 07/18/18 05:15 Sodium 142.8 Potassium 3.3 L Chloride 110 H Carbon Dioxide 18 L Anion Gap 15 BUN 37 H Creatinine 1.18 Est GFR ( Amer) > 60 Est GFR (Non-Af Amer) > 60 Glucose 172 H Calcium 6.4 L* Impressions: Sacrum and Coccyx X-Ray 07/16/18 20:24 IMPRESSION: No fracture. copyright 2011 [employer]- All Rights Reserved Chest X-Ray 07/16/18 22:18 IMPRESSION: Increased bilateral lower thoracic opacity/effusion. Assessment & Plan - Diagnosis (1) Acute kidney injury Is this a current diagnosis for this admission?: Yes Plan: Acute kidney injury resolved (2) Congestive heart failure Qualifiers: Heart failure type: unspecified Heart failure chronicity: chronic Is this a current diagnosis for this admission?: Yes (3) Hypocalcemia Is this a current diagnosis for this admission?: Yes Plan: Receive a calcium gluconate IV this morning and was started on calcium carbonate 1 g twice a day .will replace vitamin D (4) Vitamin D deficiency Is this a current diagnosis for this admission?: Yes Plan: Started on ergocalciferol, as well as cholecalciferol , will start him on calcitriol today because PTH was high (5) Abnormal LFTs Is this a current diagnosis for this admission?: Yes
[2018-07-18] MEDS: CHOLECALCIFEROL (D3) 1,000 UNIT TABLET PO SCH (11:33)
[2018-07-18] MEDS: MEGESTROL ACETATE SUSP 400 MG/10 ML UDCUP PO SCH (11:33)
[2018-07-18] MEDS: POTASSIUM CHLORIDE 10 MEQ CAPSULE.ER PO SCH (11:33)
[2018-07-18] MEDS: RISPERIDONE 0.25 MG TABLET PO PRN (11:33)
[2018-07-18] MEDS: APIXABAN 2.5 MG TABLET PO SCH ×2 (11:33→18:34)
[2018-07-18] MEDS: BUSPIRONE HCL 10 MG TABLET PO SCH ×2 (11:33→18:34)
[2018-07-18] MEDS: LEVETIRACETAM 500 MG TABLET PO SCH ×2 (11:34→23:14)
[2018-07-18] MEDS: VALPROATE SODIUM SYRUP 250 MG/5 ML UDCUP PO SCH ×4 (11:34→23:15)
[2018-07-18 11:45] LABS: HEMATOCRIT 26.1 % (37.9-51.0); HEMOGLOBIN 8.8 g/dL (13.5-17.0); MEAN CORPUSCULAR HEMOGLOBIN 25.2 pg (27.0-33.4); MEAN CORPUSCULAR HGB CONC 33.6 g/dL (32.0-36.0); MEAN CORPUSCULAR VOLUME 75 fl (80-97); PLATELET COUNT 203 10^3/uL (150-450); RED BLOOD COUNT 3.49 10^6/uL (4.35-5.55); RED CELL DISTRIBUTION WIDTH 19.2 % (11.5-14.0); WHITE BLOOD COUNT 10.8 10^3/uL (4.0-10.5)
[2018-07-18 12:02] LABS: ABSOLUTE LYMPHOCYTES# (MANUAL) 1.3 10^3/uL (0.5-4.7); ABSOLUTE MONOCYTES # (MANUAL) 0.6 10^3/uL (0.1-1.4); ABSOLUTE NEUTROPHILS# (MANUAL) 8.9 10^3/uL (1.7-8.2); BASOPHILS % (MANUAL) 0 % (0-2); EOSINOPHILS % (MANUAL) 0 % (0-6); LYMPHOCYTES % (MANUAL) 12 % (13-45); MONOCYTES % (MANUAL) 6 % (3-13); SEGMENTED NEUTROPHILS % (MAN) 82 % (42-78); TOTAL CELLS COUNTED 100
[2018-07-18 12:03] LABS: ANISOCYTOSIS 2+; HYPOCHROMASIA 1+; OVALOCYTES 1+; PLATELET COMMENT ADEQUATE; POIKILOCYTOSIS 1+; POLYCHROMASIA SLIGHT; TEAR DROP CELLS SLIGHT
[2018-07-18] MEDS ORDERED: DEXTROSE 50%-WATER 25 GM/50 ML DISP.SYRIN IV PRN ×2 (12:05)
[2018-07-18] MEDS ORDERED: DEXTROSE 40% GEL 15 GM TUBE PO PRN ×2 (12:05)
[2018-07-18] MEDS ORDERED: GLUCAGON,HUMAN RECOMB 1 MG INJ IM PRN (12:05)
[2018-07-18] MEDS: CALCITRIOL 0.25 MCG CAPSULE PO SCH (12:10)
[2018-07-18] MEDS: ACETAMINOPHEN 325 MG TABLET PO PRN (13:02)
[2018-07-18] MEDS: INSULIN LISPRO 100 UNIT/ML 3 ML VIAL SUBCUT PRN ×2 (13:40→19:06)
--- NOTE | 2018-07-18 16:23 | RADIOLOGY REPORT (SQ) ---
EXAM DESCRIPTION: CHEST SINGLE VIEW COMPLETED DATE/TIME: 07/18/2018 4:15 pm REASON FOR STUDY: SOB COMPARISON: 07/16/2018 EXAM PARAMETERS: NUMBER OF VIEWS: One view. TECHNIQUE: Single frontal radiographic view of the chest acquired. RADIATION DOSE: NA LIMITATIONS: None. FINDINGS: LUNGS AND PLEURA: Basilar opacities. Pleural effusions. Slightly worse. MEDIASTINUM AND HILAR STRUCTURES: No masses. Contour normal. HEART AND VASCULAR STRUCTURES: Heart enlarged. Vascular congestion. BONES: No acute findings. HARDWARE: None in the chest. OTHER: No other significant finding. IMPRESSION: Vascular congestion. Increasing basilar opacities and pleural effusions. TECHNICAL DOCUMENTATION: JOB ID: [id number] [employer]- All Rights Reserved Reading location - IP/workstation name: [email or web address]
[2018-07-18 17:24] LABS: CREATINE KINASE MB 0.77 ng/mL (<4.55); TROPONIN I 0.015 ng/mL
[2018-07-18] MEDS ORDERED: FUROSEMIDE INJ/PF 40 MG/4 ML SDV IV ONE (18:15)
[2018-07-18] MEDS ORDERED: FUROSEMIDE INJ/PF 40 MG/4 ML SDV ONE (18:32)
[2018-07-18] MEDS: CALCIUM CARBONATE 500 MG TABLET PO SCH (18:33)
--- NOTE | 2018-07-18 22:21 | EKG REPORT ---
SEVERITY:- ABNORMAL ECG - ATRIAL FIBRILLATION BORDERLINE LEFT AXIS DEVIATION LOW VOLTAGE IN FRONTAL LEADS : Confirmed by: Kayy Kimble 18-Jul-2018 22:20:11
[2018-07-18] MEDS: ATORVASTATIN CALCIUM 10 MG TABLET PO SCH (23:14)
[2018-07-18] MEDS: TAMSULOSIN HCL 0.4 MG CAP.SR.24H PO SCH (23:14)
[2018-07-18 23:54] LABS: CREATINE KINASE MB 0.64 ng/mL (<4.55); TROPONIN I 0.018 ng/mL
[2018-07-19] MEDS: HYDRALAZINE HCL 25 MG TABLET PO SCH ×5 (00:34→23:55)
[2018-07-19] MEDS ORDERED: CALCIUM GLUCONATE 1000 MG/10 ML INJ IV PRN (03:09)
[2018-07-19] MEDS ORDERED: CALCIUM GLUCONATE 1000 MG/10 ML INJ IV ONE (03:10)
[2018-07-19] MEDS ORDERED: CALCIUM GLUCONATE 2,000 MG in DEXTROSE 5%-WATER 100 ML IV ONE (03:15)
[2018-07-19 04:07] LABS: ANION GAP 14 (5-19); BLOOD UREA NITROGEN 38 mg/dL (7-20); CARBON DIOXIDE 18 mmol/L (22-30); CHLORIDE 112 mmol/L (98-107); GLUCOSE 129 mg/dL (75-110); POTASSIUM 3.9 mmol/L (3.6-5.0); SODIUM 144.1 mmol/L (137-145)
[2018-07-19 04:19] LABS: CREATINE KINASE MB 0.59 ng/mL (<4.55); TROPONIN I 0.019 ng/mL
[2018-07-19 04:24] LABS: CALCIUM 6.5 mg/dL (8.4-10.2)
[2018-07-19 04:34] LABS: ANION GAP 14 (5-19); BLOOD UREA NITROGEN 38 mg/dL (7-20); CALCIUM 6.5 mg/dL (8.4-10.2); CARBON DIOXIDE 18 mmol/L (22-30); CHLORIDE 112 mmol/L (98-107); GLUCOSE 129 mg/dL (75-110); POTASSIUM 3.9 mmol/L (3.6-5.0); SODIUM 144.1 mmol/L (137-145)
[2018-07-19 04:35] LABS: ALBUMIN 2.4 g/dL (3.5-5.0); CREATINE KINASE 756 U/L (55-170); PHOSPHORUS 3.3 mg/dL (2.5-4.5)
[2018-07-19] MEDS ORDERED: CALCIUM CARBONATE 500 MG TAB.CHEW PO ONE (07:00)
--- NOTE | 2018-07-19 08:42 | PDOC PROGRESS REPORT ---
Subjective Progress Note for:: 07/19/18 Subjective:: The patient appears to be slightly more confused. He appears to be slightly more dehydrated than when he was discharged to the senior living. His serum calcium is 6.5 but his corrected calcium is 7.8. The patient has previously pulled his IV and the PICC line so I would not be attempting to place another one. We will discuss with nephrology. Reason For Visit: HYPOCALCEMIA, VIT D DEF, MALNUTRITION ACIDOSIS Physical Exam Vital Signs: Temp Pulse Resp BP Pulse Ox 98.7 F 113 H 18 138/65 H 95 07/19/18 07:30 07/19/18 07:30 07/19/18 07:30 07/19/18 07:30 07/19/18 07:30 Intake & Output 07/18/18 07/19/18 07/20/18 06:59 06:59 06:59 Intake Total 840 655 Output Total 110 Balance 730 655 Weight 74.9 kg 75.9 kg General appearance: PRESENT: mild distress Head exam: PRESENT: atraumatic Eye exam: PRESENT: conjunctiva pink Neck exam: PRESENT: carotid bruit. ABSENT: JVD Cardiovascular exam: PRESENT: irregular rhythm, +S1, +S2 GI/Abdominal exam: PRESENT: normal bowel sounds, soft Extremities exam: PRESENT: tenderness Musculoskeletal exam: PRESENT: tenderness Neurological exam: PRESENT: awake Focused psych exam: PRESENT: restlessness Results Laboratory Results: 07/18/18 11:22 07/19/18 03:39 07/18/18 07/19/18 07/19/18 11:22 03:39 03:39 WBC 10.8 H RBC 3.49 L Hgb 8.8 L Hct 26.1 L MCV 75 L MCH 25.2 L MCHC 33.6 RDW 19.2 H Plt Count 203 Seg Neutrophils % Not Reportable Lymphocytes % Not Reportable Monocytes % Not Reportable Eosinophils % Not Reportable Basophils % Not Reportable Absolute Neutrophils Not Reportable Absolute Lymphocytes Not Reportable Absolute Monocytes Not Reportable Absolute Eosinophils Not Reportable Absolute Basophils Not Reportable Sodium 144.1 144.1 Potassium 3.9 3.9 Chloride 112 H 112 H Carbon Dioxide 18 L 18 L Anion Gap 14 14 BUN 38 H 38 H Creatinine 1.26 H 1.26 H Est GFR ( Amer) > 60 > 60 Est GFR (Non-Af Amer) 56 L 56 L Glucose 129 H 129 H Calcium 6.5 L* 6.5 L* Phosphorus 3.3 Magnesium 1.8 Albumin 2.4 L 07/18/18 07/18/18 07/18/18 16:45 16:45 23:10 Creatine Kinase 728 H 706 H CK-MB (CK-2) 0.77 Troponin I 0.015 07/18/18 07/19/18 07/19/18 23:10 03:39 03:39 Creatine Kinase 756 H CK-MB (CK-2) 0.64 0.59 Troponin I 0.018 0.019 Impressions: Sacrum and Coccyx X-Ray 07/16/18 20:24 IMPRESSION: No fracture. copyright 2011 [employer]- All Rights Reserved Chest X-Ray 07/18/18 00:00 IMPRESSION: Vascular congestion. Increasing basilar opacities and pleural effusions. Assessment & Plan - Diagnosis (1) Atrial fibrillation Qualifiers: Atrial fibrillation type: chronic Qualified Code(s): I48.2 - Chronic atrial fibrillation Is this a current diagnosis for this admission?: Yes Plan: Recurrent episodes of fast A. fib. Will reconsult with cardiology and add a small dose of calcium channel block (2) Decubitus ulcer of sacral region, stage 1 Is this a current diagnosis for this admission?: Yes Plan: We will continue local skin care. Will add specialty bed (3) Failure to thrive Is this a current diagnosis for this admission?: Yes Plan: Continue current treatment (4) Hypocalcemia Is this a current diagnosis for this admission?: Yes Plan: Corrected calcium is 7.8. We will obtain PTH and vitamin D. Will consult nephrology (5) Anemia, chronic disease Is this a current diagnosis for this admission?: Yes Plan: Continue monitoring I would avoid transfusion at this point (6) CKD (chronic kidney disease) stage 3, GFR 30-59 ml/min Is this a current diagnosis for this admission?: Yes Plan: We will consult nephrology (7) Metastatic malignant neoplasm to prostate Is this a current diagnosis for this admission?: Yes Plan: We will reconsult hematology oncology
--- NOTE | 2018-07-19 10:22 | PROGRESS NOTE E ---
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 The patient admitted. He was discharged from the hospital 24 hours ago and came back with sacral pain. Has a decubitus ulcer. Was found to have calcium that was low; was around 6. Received calcium gluconate. Feeling better. OBJECTIVE: Patient lying in bed, comfortable. Not in distress. VITAL SIGNS: Blood pressure is 111/45, temperature 98.4, heart rate 88. HEENT: Head normocephalic, atraumatic. Pupils round, reactive to light and accommodation bilaterally. Extraocular movements intact. Ears: Tympanic membranes intact bilaterally. No discharge from the ear. No discharge from the nose. NECK: Supple, no increased JVD, no thyromegaly, no lymphadenopathy. CARDIOVASCULAR: Normal S1, S2. Regular rate and rhythm. No murmur, no gallop. RESPIRATORY: Lungs clear. ABDOMEN: Soft, nontender. MUSCULOSKELETAL: No edema. NEUROLOGIC: Awake, alert. SKIN: No rash. LABORATORY DATA: White blood count 9.8, hemoglobin 8.2, hematocrit is 24. Sodium 143, potassium 3.3, CO2 is 19, chloride 111, calcium 6.1. PTH is high, it is 467. Vitamin D level is low as well as calcium also was low. ASSESSMENT AND PLAN: 1. HYPOCALCEMIA. Patient hypocalcemic. Vitamin D was low and will replace his vitamin D. Will start him on ergocalciferol to 50,000 units every week, today. Will increase his cholecalciferol to units daily. His PTH also is high and vitamin D level less than 12. The patient also now vitamin D deficiency, hypocalcemia. 2. VITAMIN D DEFICIENCY. Will replace in setting of high PTH. Will give also calcitriol 0.25 mg daily. 3. PROSTATE CANCER METASTATIC TO THE BONE. 4. DECUBITUS ULCER STAGE II. MEDICAL NECESSITY: Patient needs to stay for treatment for severe hypocalcemia. Replace his potassium. TIME SPENT: Thirty-three minutes. DICTATING PHYSICIAN: ADAIR SNEED M.D. [id number] [id number] PHY#: [id number] ID: [id number] JOB#: [id number] ACCT: [id number] cc: >
[2018-07-19] MEDS: VALPROATE SODIUM SYRUP 250 MG/5 ML UDCUP PO SCH ×4 (12:32→21:05)
[2018-07-19] MEDS: CALCIUM CARBONATE 500 MG TABLET PO SCH ×2 (12:37→18:30)
[2018-07-19] MEDS: CALCITRIOL 0.25 MCG CAPSULE PO SCH (12:39)
[2018-07-19] MEDS: APIXABAN 2.5 MG TABLET PO SCH ×2 (12:39→18:30)
[2018-07-19] MEDS: MEGESTROL ACETATE SUSP 400 MG/10 ML UDCUP PO SCH (12:40)
[2018-07-19] MEDS: CHOLECALCIFEROL (D3) 1,000 UNIT TABLET PO SCH (12:41)
[2018-07-19] MEDS: BUSPIRONE HCL 10 MG TABLET PO SCH ×2 (12:42→18:28)
[2018-07-19] MEDS: DILTIAZEM HCL 30 MG TABLET PO SCH ×2 (12:46→18:34)
[2018-07-19] MEDS: LEVETIRACETAM ORAL SOLN 500 MG/5 ML UDCUP PO SCH ×2 (15:00→21:05)
[2018-07-19] MEDS: POTASSIUM CHLORIDE 20 MEQ/15 ML UDCUP PO SCH (15:01)
[2018-07-19] MEDS: INSULIN LISPRO 100 UNIT/ML 3 ML VIAL SUBCUT PRN (18:35)
[2018-07-19] MEDS: POTASSIUM CHLORIDE 10 MEQ CAPSULE.ER PO SCH (18:37)
[2018-07-19] MEDS: LEVETIRACETAM 500 MG TABLET PO SCH (18:37)
[2018-07-19] MEDS ORDERED: CHOLECALCIFEROL (D3) 1,000 UNIT TABLET PO ONE ×2 (19:22→20:30)
--- NOTE | 2018-07-19 20:41 | PDOC CONSULTATION ---
Consultation Consult Date: 07/19/18 Consult reason:: hypocalcemia History of Present Illness Admission Date/PCP: 07/16/18 23:30 SHAWN HERNANDEZ MD History of Present Illness: HARMONY RODRIGUEZ is a 72 year old male resident of assisted living with a past medical history of prostate cancer with bone metastasis, type 2 diabetes, stage III chronic kidney disease, congestive heart failure, hypertension, malnutrition , hypocalcemia and seizure. Patient was brought to the ER 24 hours after being discharge from the hospital. He comes in complaining of a sacral pain and was found to have a 1 cm stage 22 decubitus ulcer in the sacrum. Labs were also drawn and a calcium workup reveals hypocalcemia of 6.6, albumin is 2.4. He received IV calcium and IV lasix. While in the hospital an ionized calcium was draw that was 0.9, Vitamin D levels were low, magnesium was normal Upon examination today albumin was down to 2.4, which gives a corrected calcium of 7.8. Patient was altered at the time of examination. History was not able to be obtained. Past Medical History Cardiac Medical History: Reports: Hypertension-primary Denies: Myocardial Infarction Pulmonary Medical History: Reports: Pneumonia Denies: Asthma Neurological Medical History: Denies: Seizures Endocrine Medical History: Reports: Diabetes Mellitus Type 1 Renal/ Medical History: Reports: Chronic Kidney Disease Stage III Malignancy Medical History: Reports: Other - Prostate cancer with bony metastases GI Medical History: Denies: Hepatitis, Hiatal Hernia Musculoskeltal Medical History: Reports: Gout Psychiatric Medical History: Reports: Depression Past Surgical History Past Surgical History: Reports: Orthopedic Surgery - lt knee replacement, Tonsillectomy, Other - Prostate biopsy, fiducial placement Denies: Pacemaker Social History Lives with: Long-Term Smoking Status: Unknown if Ever Smoked Frequency of Alcohol Use: None Hx Recreational Drug Use: No Drugs: None Hx Prescription Drug Abuse: No - Advance Directive Resuscitation Status: Full Code Family History Parental Family History Reviewed: No Children Family History Reviewed: Unknown Sibling(s) Family History Reviewed.: Unknown Medication/Allergy Home Medications: Allopurinol [Zyloprim 300 mg Tablet] 300 mg PO DAILY 07/17/18 Atorvastatin Calcium [Lipitor 10 mg Tablet] 10 mg PO DAILY 07/17/18 Cetirizine HCl [Zyrtec 10 mg Tablet] 10 mg PO DAILY 07/17/18 Fluticasone Propionate [Flonase Nasal [place] 50 Mcg/[place] 16 gm] 1 spray NASL BID 07/17/18 Hydralazine HCl [Apresoline 50 mg Tablet] 50 mg PO Q8 07/17/18 Latanoprost [Xalatan 0.005% Oph Soln 2.5 ml] 1 drop OU QHS 07/17/18 Lisinopril [Prinivil 40 mg Tablet] 40 mg PO QPM 07/17/18 Tamsulosin HCl [Flomax 0.4 mg Cap.sr] 0.4 mg PO DAILY 07/17/18 Allergies/Adverse Reactions: No Known Allergies Allergy (Verified 07/16/18 20:45) Review of Systems ROS unobtainable: Due to mental status Cardiovascular: ABSENT: chest pain, dyspnea on exertion Physical Exam Vital Signs: Temp Pulse Resp BP Pulse Ox 97.7 F 89 20 124/43 L 97 07/19/18 16:15 07/19/18 19:00 07/19/18 16:15 07/19/18 16:15 07/19/18 16:15 Intake & Output 07/18/18 07/19/18 07/20/18 06:59 06:59 06:59 Intake Total 840 655 Output Total 110 Balance 730 655 Weight 74.9 kg 75.9 kg General appearance: PRESENT: no acute distress. ABSENT: well-developed, well- nourished Neck exam: PRESENT: full ROM. ABSENT: JVD, tracheal deviation Cardiovascular exam: PRESENT: irregular rhythm, +S1, +S2 GI/Abdominal exam: PRESENT: soft. ABSENT: tenderness Extremities exam: ABSENT: pedal edema, +1 edema, +2 edema Neurological exam: PRESENT: altered, awake. ABSENT: alert, oriented to person, oriented to place, oriented to time, oriented to situation Skin exam: PRESENT: dry, intact, warm Results Laboratory Results: 07/18/18 11:22 07/19/18 03:39 07/19/18 07/19/18 03:39 03:39 Sodium 144.1 144.1 Potassium 3.9 3.9 Chloride 112 H 112 H Carbon Dioxide 18 L 18 L Anion Gap 14 14 BUN 38 H 38 H Creatinine 1.26 H 1.26 H Est GFR ( Amer) > 60 > 60 Est GFR (Non-Af Amer) 56 L 56 L Glucose 129 H 129 H Calcium 6.5 L* 6.5 L* Phosphorus 3.3 Magnesium 1.8 Albumin 2.4 L 07/18/18 07/18/18 07/18/18 16:45 16:45 23:10 Creatine Kinase 728 H 706 H CK-MB (CK-2) 0.77 Troponin I 0.015 07/18/18 07/19/18 07/19/18 23:10 03:39 03:39 Creatine Kinase 756 H CK-MB (CK-2) 0.64 0.59 Troponin I 0.018 0.019 Impressions: Sacrum and Coccyx X-Ray 07/16/18 20:24 IMPRESSION: No fracture. copyright 2011 [employer]- All Rights Reserved Chest X-Ray 07/18/18 00:00 IMPRESSION: Vascular congestion. Increasing basilar opacities and pleural effusions. Assessment & Plan - Diagnosis (1) Hypocalcemia Is this a current diagnosis for this admission?: Yes Plan: Possible causes of hypocalcemia include vitamin deficiency, malnutrition and possible metabolic acidosis. Other concerns for osteoblastic metastases that could be causing hypocalcemia. PTH is also elevated, continue vitamin D supplements, calcium supplements, start sodium bicarbonate. Does not look to be due to hyperphosphotemia or low magnesium. (2) Congestive heart failure Qualifiers: Heart failure type: unspecified Heart failure chronicity: chronic Qualified Code(s): I50.9 - Heart failure, unspecified Is this a current diagnosis for this admission?: Yes Plan: looks to be stabilizing (3) Decubitus ulcer of sacral region, stage 1 Is this a current diagnosis for this admission?: Yes Plan: per primary (4) Metastatic malignant neoplasm to prostate Is this a current diagnosis for this admission?: Yes Plan: per primary (5) Vitamin D deficiency Is this a current diagnosis for this admission?: Yes Plan: recently place on vitamin D supplements (6) Anemia, chronic disease Is this a current diagnosis for this admission?: Yes Plan: will reassess to see the underlining cause of anemia. (7) CKD (chronic kidney disease) stage 3, GFR 30-59 ml/min Is this a current diagnosis for this admission?: Yes Plan: currently at baseline. (8) Atrial fibrillation Qualifiers: Atrial fibrillation type: chronic Qualified Code(s): I48.2 - Chronic atrial fibrillation Is this a current diagnosis for this admission?: Yes Plan: per primary (9) Failure to thrive Is this a current diagnosis for this admission?: Yes Plan: currently on megace to help increase appetite
[2018-07-19] MEDS: ATORVASTATIN CALCIUM 10 MG TABLET PO SCH (21:04)
[2018-07-19] MEDS: TAMSULOSIN HCL 0.4 MG CAP.SR.24H PO SCH (21:04)
[2018-07-19] MEDS: SODIUM BICARBONATE 650 MG TABLET PO SCH (21:13)
[2018-07-20] MEDS: DILTIAZEM HCL 30 MG TABLET PO SCH ×4 (00:36→18:10)
[2018-07-20] MEDS: HYDRALAZINE HCL 25 MG TABLET PO SCH ×3 (06:06→18:08)
--- NOTE | 2018-07-20 08:46 | PDOC PROGRESS REPORT ---
Subjective Progress Note for:: 07/20/18 Subjective:: The patient is more lethargic this morning he had a very agitated night last night and feels tired. He had good urine output. He did have a bowel movement. He is still not eating or drinking well. He is confused this morning Reason For Visit: HYPOCALCEMIA, VIT D DEF, MALNUTRITION ACIDOSIS Physical Exam Vital Signs: Temp Pulse Resp BP Pulse Ox 98.1 F 80 18 101/46 L 96 07/20/18 08:21 07/20/18 08:21 07/20/18 08:21 07/20/18 08:21 07/20/18 08:21 Intake & Output 07/19/18 07/20/18 07/21/18 06:59 06:59 06:59 Intake Total 655 320 Balance 655 320 Weight 75.9 kg 74.9 kg General appearance: PRESENT: mild distress Head exam: PRESENT: atraumatic Eye exam: PRESENT: conjunctiva pink Mouth exam: PRESENT: dry mucosa Neck exam: PRESENT: carotid bruit. ABSENT: JVD Respiratory exam: PRESENT: clear to auscultation yuliya Cardiovascular exam: PRESENT: irregular rhythm, +S1, +S2 GI/Abdominal exam: PRESENT: soft Extremities exam: PRESENT: tenderness Musculoskeletal exam: PRESENT: tenderness Psychiatric exam: PRESENT: agitated Results Laboratory Results: 07/18/18 11:22 07/19/18 03:39 07/18/18 07/18/18 07/18/18 16:45 16:45 23:10 Creatine Kinase 728 H 706 H CK-MB (CK-2) 0.77 Troponin I 0.015 07/18/18 07/19/18 07/19/18 23:10 03:39 03:39 Creatine Kinase 756 H CK-MB (CK-2) 0.64 0.59 Troponin I 0.018 0.019 Impressions: Sacrum and Coccyx X-Ray 07/16/18 20:24 IMPRESSION: No fracture. copyright 2011 [employer]- All Rights Reserved Chest X-Ray 07/18/18 00:00 IMPRESSION: Vascular congestion. Increasing basilar opacities and pleural effusions. Assessment & Plan - Diagnosis (1) Atrial fibrillation Qualifiers: Atrial fibrillation type: chronic Qualified Code(s): I48.2 - Chronic atrial fibrillation Is this a current diagnosis for this admission?: Yes Plan: Recurrent episodes of fast A. fib. Will reconsult with cardiology and add a small dose of calcium channel block (2) Decubitus ulcer of sacral region, stage 1 Is this a current diagnosis for this admission?: Yes Plan: We will continue local skin care. Will add specialty bed (3) Failure to thrive Is this a current diagnosis for this admission?: Yes Plan: Continue current treatment (4) Hypocalcemia Is this a current diagnosis for this admission?: Yes Plan: Corrected calcium is 7.8. We will obtain PTH and vitamin D. Will consult nephrology (5) Anemia, chronic disease Is this a current diagnosis for this admission?: Yes (6) CKD (chronic kidney disease) stage 3, GFR 30-59 ml/min Is this a current diagnosis for this admission?: Yes Plan: We will consult nephrology (7) Metastatic malignant neoplasm to prostate Is this a current diagnosis for this admission?: Yes Plan: We will reconsult hematology oncology (8) Dementia Is this a current diagnosis for this admission?: Yes Plan: We will continue with current treatment (9) Acute psychosis Is this a current diagnosis for this admission?: Yes Plan: Continue current treatment most probably related to sound down (10) Memory loss, short term Is this a current diagnosis for this admission?: Yes Plan: Continue supportive treatment (11) Vitamin D deficiency Is this a current diagnosis for this admission?: Yes Plan: Most probably related to hypocalcemia. We will add vitamin D
[2018-07-20] MEDS: VALPROATE SODIUM SYRUP 250 MG/5 ML UDCUP PO SCH ×4 (10:56→22:19)
[2018-07-20] MEDS: MEGESTROL ACETATE SUSP 400 MG/10 ML UDCUP PO SCH (10:56)
[2018-07-20] MEDS: APIXABAN 2.5 MG TABLET PO SCH ×2 (10:57→18:08)
[2018-07-20] MEDS: CHOLECALCIFEROL (D3) 1,000 UNIT TABLET PO SCH (10:57)
[2018-07-20] MEDS: POTASSIUM CHLORIDE 20 MEQ/15 ML UDCUP PO SCH (10:57)
[2018-07-20] MEDS: CALCIUM CARBONATE 500 MG TABLET PO SCH ×2 (10:57→18:08)
[2018-07-20] MEDS: SODIUM BICARBONATE 650 MG TABLET PO SCH (10:57)
[2018-07-20] MEDS: BUSPIRONE HCL 10 MG TABLET PO SCH ×2 (10:58→18:08)
[2018-07-20] MEDS: LEVETIRACETAM ORAL SOLN 500 MG/5 ML UDCUP PO SCH ×2 (12:04→22:20)
[2018-07-20 16:14] LABS: HEMATOCRIT 24.2 % (37.9-51.0); HEMOGLOBIN 8.1 g/dL (13.5-17.0); MEAN CORPUSCULAR HEMOGLOBIN 25.2 pg (27.0-33.4); MEAN CORPUSCULAR HGB CONC 33.4 g/dL (32.0-36.0); MEAN CORPUSCULAR VOLUME 76 fl (80-97); PLATELET COUNT 188 10^3/uL (150-450); RED BLOOD COUNT 3.21 10^6/uL (4.35-5.55); RED CELL DISTRIBUTION WIDTH 19.2 % (11.5-14.0); RETICULOCYTE COUNT (AUTO) 0.93 % (0.66-2.85); WHITE BLOOD COUNT 9.7 10^3/uL (4.0-10.5)
[2018-07-20 16:32] LABS: ANION GAP 12 (5-19); BLOOD UREA NITROGEN 46 mg/dL (7-20); CARBON DIOXIDE 19 mmol/L (22-30); CHLORIDE 114 mmol/L (98-107); GLUCOSE 237 mg/dL (75-110); IRON(TIBC) 19.7 ug/dL (49-181); POTASSIUM 4.6 mmol/L (3.6-5.0); SODIUM 145.1 mmol/L (137-145)
[2018-07-20 16:49] LABS: CALCIUM 6.7 mg/dL (8.4-10.2)
[2018-07-20 16:57] LABS: ARTERIAL BLOOD BASE EXCESS -2.6 mmol/L; ARTERIAL BLOOD H2CO3 0.67 mmol/L (1.05-1.35); ARTERIAL BLOOD HCO3 18.7 mmol/L (20-24); ARTERIAL BLOOD O2 SATURATION 96.8 % (94-98); ARTERIAL BLOOD PCO2 22.1 mmHg (35-45); ARTERIAL BLOOD PH 7.55 (7.35-7.45); ARTERIAL BLOOD PO2 75.6 mmHg (80-100); ARTERIAL BLOOD TOTAL CO2 19.4 mmol/L (23-27)
[2018-07-20 16:58] LABS: ARTERIAL BLOOD FIO2 ROOM AIR
[2018-07-20 17:39] LABS: FOLATE 6.36 ng/mL (>2.76)
[2018-07-20] MEDS: INSULIN LISPRO 100 UNIT/ML 3 ML VIAL SUBCUT PRN (18:07)
[2018-07-20] MEDS: ACETAMINOPHEN 325 MG TABLET PO PRN (18:09)
--- NOTE | 2018-07-20 19:24 | PDOC PROGRESS REPORT ---
Subjective Progress Note for:: 07/20/18 Subjective:: Patient was seen today laying in his bed with his daughter by his side. He was altered more than yesterday. He appeared to be breathing rapidly. He did not claim to be short of breath at the time. He denied chest pain. Reason For Visit: HYPOCALCEMIA, VIT D DEF, MALNUTRITION ACIDOSIS Physical Exam Vital Signs: Temp Pulse Resp BP Pulse Ox 97.5 F 102 H 18 108/48 L 97 07/20/18 15:20 07/20/18 15:20 07/20/18 15:20 07/20/18 15:20 07/20/18 15:20 Intake & Output 07/19/18 07/20/18 07/21/18 06:59 06:59 06:59 Intake Total 655 320 540 Balance 655 320 540 Weight 75.9 kg 74.9 kg General appearance: PRESENT: mild distress, well-developed, well-nourished Mouth exam: PRESENT: moist, neck supple Neck exam: ABSENT: JVD, tracheal deviation Respiratory exam: PRESENT: accessory muscle use, clear to auscultation yuliya, tachypnea. ABSENT: crackles, rales, rhonchi, wheezes Cardiovascular exam: PRESENT: irregular rhythm, +S1, +S2 GI/Abdominal exam: PRESENT: soft. ABSENT: tenderness Extremities exam: ABSENT: pedal edema, tenderness, +1 edema, +2 edema Musculoskeletal exam: PRESENT: normal inspection. ABSENT: tenderness Neurological exam: PRESENT: altered, awake. ABSENT: oriented to person, oriented to place, oriented to time, oriented to situation Psychiatric exam: PRESENT: agitated, anxious Skin exam: PRESENT: dry, intact, warm. ABSENT: cyanosis Results Laboratory Results: 07/20/18 15:50 07/20/18 15:50 07/20/18 07/20/18 07/20/18 15:50 15:50 16:40 WBC 9.7 RBC 3.21 L Hgb 8.1 L Hct 24.2 L MCV 76 L MCH 25.2 L MCHC 33.4 RDW 19.2 H Plt Count 188 Retic Count (auto) 0.93 Absolute Retic 0.030 Carbonic Acid HCO3/H2CO3 Ratio ABG pH ABG pCO2 ABG pO2 ABG HCO3 ABG O2 Saturation ABG Base Excess FiO2 Sodium 145.1 H Potassium 4.6 Chloride 114 H Carbon Dioxide 19 L Anion Gap 12 BUN 46 H Creatinine 1.44 H Est GFR ( Amer) 58 L Est GFR (Non-Af Amer) 48 L Glucose 237 H Calcium 6.7 L* Ionized Calcium Rohan 0.91 L Iron 19.7 L TIBC 153 L % Saturation 13 Ferritin 2920.00 H Vitamin B12 924.0 Folate 6.36 07/20/18 16:40 WBC RBC Hgb Hct MCV MCH MCHC RDW Plt Count Retic Count (auto) Absolute Retic Carbonic Acid 0.67 L HCO3/H2CO3 Ratio 27:1 ABG pH 7.55 H ABG pCO2 22.1 L ABG pO2 75.6 L ABG HCO3 18.7 L ABG O2 Saturation 96.8 ABG Base Excess -2.6 FiO2 ROOM AIR Sodium Potassium Chloride Carbon Dioxide Anion Gap BUN Creatinine Est GFR ( Amer) Est GFR (Non-Af Amer) Glucose Calcium Ionized Calcium Rohan Iron TIBC % Saturation Ferritin Vitamin B12 Folate 07/18/18 07/18/18 07/18/18 16:45 16:45 23:10 Creatine Kinase 728 H 706 H CK-MB (CK-2) 0.77 Troponin I 0.015 07/18/18 07/19/18 07/19/18 23:10 03:39 03:39 Creatine Kinase 756 H CK-MB (CK-2) 0.64 0.59 Troponin I 0.018 0.019 Impressions: Sacrum and Coccyx X-Ray 07/16/18 20:24 IMPRESSION: No fracture. copyright 2011 [id number]- All Rights Reserved Chest X-Ray 07/18/18 00:00 IMPRESSION: Vascular congestion. Increasing basilar opacities and pleural effusions. Assessment & Plan - Diagnosis (1) Hypocalcemia Is this a current diagnosis for this admission?: Yes Plan: slightly increased, continue with current medications. (2) Congestive heart failure Qualifiers: Heart failure type: unspecified Heart failure chronicity: chronic Qualified Code(s): I50.9 - Heart failure, unspecified Is this a current diagnosis for this admission?: Yes Plan: currently stable off of lasix (3) Metastatic malignant neoplasm to prostate Is this a current diagnosis for this admission?: Yes Plan: per primary (4) Vitamin D deficiency Is this a current diagnosis for this admission?: Yes Plan: continue vitamin D (5) Anemia, chronic disease Is this a current diagnosis for this admission?: Yes Plan: awaiting iron panel (6) CKD (chronic kidney disease) stage 3, GFR 30-59 ml/min Is this a current diagnosis for this admission?: Yes Plan: if patient continues to not hydrate well, some saline will be needed to keep him hydrated to prevent an LIAT. (7) Atrial fibrillation Qualifiers: Atrial fibrillation type: chronic Qualified Code(s): I48.2 - Chronic atrial fibrillation Is this a current diagnosis for this admission?: Yes (8) Failure to thrive Is this a current diagnosis for this admission?: Yes Plan: on megace, still not eating much (9) Decubitus ulcer of sacral region, stage 1 Is this a current diagnosis for this admission?: Yes Plan: per primary (10) Respiratory alkalosis Plan: looks be due to some pain and decreased PO2, will look to give some oxygen at 2L via NC. - Notes Notes: Case and care plan was discussed with Dr. Leblanc.
[2018-07-20] MEDS: ATORVASTATIN CALCIUM 10 MG TABLET PO SCH (22:20)
[2018-07-20] MEDS: TAMSULOSIN HCL 0.4 MG CAP.SR.24H PO SCH (22:20)
[2018-07-21] MEDS: HYDRALAZINE HCL 25 MG TABLET PO SCH ×2 (00:27→05:10)
[2018-07-21] MEDS: DILTIAZEM HCL 30 MG TABLET PO SCH ×4 (00:27→17:01)
[2018-07-21] MEDS: INSULIN LISPRO 100 UNIT/ML 3 ML VIAL SUBCUT PRN (06:47)
[2018-07-21] MEDS: RISPERIDONE 0.25 MG TABLET PO PRN ×2 (08:06→22:19)
[2018-07-21] MEDS: ACETAMINOPHEN 325 MG TABLET PO PRN ×2 (08:06→17:07)
[2018-07-21] MEDS ORDERED: GLIMEPIRIDE 1 MG TABLET PO ONE ×2 (09:04→11:00)
--- NOTE | 2018-07-21 09:14 | PDOC PROGRESS REPORT ---
Subjective Progress Note for:: 07/21/18 Subjective:: The patient is a little bit more awake this morning. He still had some sun downs like night. Apparently he had a round of 4 beats of V. tach but they have held his Cardizem. His blood pressure was low last night and they have both the Cardizem and hydralazine. Discussed with nursing to avoid holding diltiazem and I will stop the hydralazine. Reason For Visit: HYPOCALCEMIA, VIT D DEF, MALNUTRITION ACIDOSIS Physical Exam Vital Signs: Temp Pulse Resp BP Pulse Ox 97.4 F 88 17 111/43 L 97 07/21/18 07:33 07/21/18 07:33 07/21/18 07:33 07/21/18 07:33 07/21/18 07:33 Intake & Output 07/20/18 07/21/18 07/22/18 06:59 06:59 06:59 Intake Total 320 1100 Balance 320 1100 Weight 74.9 kg 74.5 kg General appearance: PRESENT: mild distress Head exam: PRESENT: atraumatic Eye exam: PRESENT: conjunctival injection Neck exam: PRESENT: carotid bruit. ABSENT: JVD Respiratory exam: PRESENT: rhonchi Cardiovascular exam: PRESENT: irregular rhythm, +S1, +S2 GI/Abdominal exam: PRESENT: normal bowel sounds, soft Extremities exam: PRESENT: tenderness Musculoskeletal exam: PRESENT: tenderness Psychiatric exam: PRESENT: anxious Focused psych exam: PRESENT: restlessness Results Laboratory Results: 07/20/18 15:50 07/20/18 15:50 07/20/18 07/20/18 07/20/18 15:50 15:50 16:40 WBC 9.7 RBC 3.21 L Hgb 8.1 L Hct 24.2 L MCV 76 L MCH 25.2 L MCHC 33.4 RDW 19.2 H Plt Count 188 Retic Count (auto) 0.93 Absolute Retic 0.030 Carbonic Acid HCO3/H2CO3 Ratio ABG pH ABG pCO2 ABG pO2 ABG HCO3 ABG O2 Saturation ABG Base Excess FiO2 Sodium 145.1 H Potassium 4.6 Chloride 114 H Carbon Dioxide 19 L Anion Gap 12 BUN 46 H Creatinine 1.44 H Est GFR ( Amer) 58 L Est GFR (Non-Af Amer) 48 L Glucose 237 H Calcium 6.7 L* Ionized Calcium Rohan 0.91 L Iron 19.7 L TIBC 153 L % Saturation 13 Ferritin 2920.00 H Vitamin B12 924.0 Folate 6.36 07/20/18 16:40 WBC RBC Hgb Hct MCV MCH MCHC RDW Plt Count Retic Count (auto) Absolute Retic Carbonic Acid 0.67 L HCO3/H2CO3 Ratio 27:1 ABG pH 7.55 H ABG pCO2 22.1 L ABG pO2 75.6 L ABG HCO3 18.7 L ABG O2 Saturation 96.8 ABG Base Excess -2.6 FiO2 ROOM AIR Sodium Potassium Chloride Carbon Dioxide Anion Gap BUN Creatinine Est GFR ( Amer) Est GFR (Non-Af Amer) Glucose Calcium Ionized Calcium Rohan Iron TIBC % Saturation Ferritin Vitamin B12 Folate 07/18/18 07/18/18 07/18/18 16:45 16:45 23:10 Creatine Kinase 728 H 706 H CK-MB (CK-2) 0.77 Troponin I 0.015 07/18/18 07/19/18 07/19/18 23:10 03:39 03:39 Creatine Kinase 756 H CK-MB (CK-2) 0.64 0.59 Troponin I 0.018 0.019 Impressions: Sacrum and Coccyx X-Ray 07/16/18 20:24 IMPRESSION: No fracture. copyright 2011 [employer]- All Rights Reserved Chest X-Ray 07/18/18 00:00 IMPRESSION: Vascular congestion. Increasing basilar opacities and pleural effusions. Assessment & Plan - Diagnosis (1) Atrial fibrillation Qualifiers: Atrial fibrillation type: chronic Qualified Code(s): I48.2 - Chronic atrial fibrillation Is this a current diagnosis for this admission?: Yes Plan: Recurrent episodes of fast A. fib. Will reconsult with cardiology and add a small dose of calcium channel block (2) Decubitus ulcer of sacral region, stage 1 Is this a current diagnosis for this admission?: Yes Plan: We will continue local skin care. Will add specialty bed (3) Failure to thrive Is this a current diagnosis for this admission?: Yes Plan: Continue current treatment (4) Hypocalcemia Is this a current diagnosis for this admission?: Yes Plan: Corrected calcium is 7.8. We will obtain PTH and vitamin D. Will consult nephrology (5) Anemia, chronic disease Is this a current diagnosis for this admission?: Yes Plan: We will add iron (6) CKD (chronic kidney disease) stage 3, GFR 30-59 ml/min Is this a current diagnosis for this admission?: Yes Plan: We will consult nephrology (7) Metastatic malignant neoplasm to prostate Is this a current diagnosis for this admission?: Yes Plan: We will reconsult hematology oncology (8) Dementia Is this a current diagnosis for this admission?: Yes Plan: We will continue with current treatment (9) Acute psychosis Is this a current diagnosis for this admission?: Yes Plan: Continue current treatment most probably related to sound down (10) Memory loss, short term Is this a current diagnosis for this admission?: Yes (11) Vitamin D deficiency Is this a current diagnosis for this admission?: Yes
[2018-07-21] MEDS: VALPROATE SODIUM SYRUP 250 MG/5 ML UDCUP PO SCH ×4 (10:30→22:20)
[2018-07-21] MEDS: FERROUS SULFATE LIQUID 300 MG/5 ML UDC PO SCH ×3 (10:30→17:06)
[2018-07-21] MEDS: APIXABAN 2.5 MG TABLET PO SCH ×2 (10:31→17:06)
[2018-07-21] MEDS: CHOLECALCIFEROL (D3) 1,000 UNIT TABLET PO SCH ×2 (10:31→22:19)
[2018-07-21] MEDS: POTASSIUM CHLORIDE 20 MEQ/15 ML UDCUP PO SCH (10:31)
[2018-07-21] MEDS: MEGESTROL ACETATE SUSP 400 MG/10 ML UDCUP PO SCH (10:31)
[2018-07-21] MEDS: CALCIUM CARBONATE 500 MG TABLET PO SCH ×2 (10:32→17:06)
[2018-07-21] MEDS: BUSPIRONE HCL 10 MG TABLET PO SCH ×2 (10:32→17:06)
[2018-07-21] MEDS: LEVETIRACETAM ORAL SOLN 500 MG/5 ML UDCUP PO SCH ×2 (12:17→22:20)
--- NOTE | 2018-07-21 20:59 | PDOC PROGRESS REPORT ---
Subjective Progress Note for:: 07/21/18 Subjective:: I saw the patient naya from nephrology service. He seems to be a little bit more calm today compared to yesterday and not complaining of pain. However he also does not answer coherently to questioning. When I asked him if he is eating he said he was but according to the daughter at bedside he is not really eating much. Daughter is concerned because he has not eaten much for the last 5 days. Daughter is asking if he should be getting some IV fluids. However apparently the patient actually removed his IV line previously that is why he does not have any IV going on. He continues to have very poor intake. Reason For Visit: HYPOCALCEMIA, VIT D DEF, MALNUTRITION ACIDOSIS Physical Exam Vital Signs: Temp Pulse Resp BP Pulse Ox 97.6 F 105 H 18 124/56 L 99 07/21/18 19:08 07/21/18 19:08 07/21/18 19:08 07/21/18 19:08 07/21/18 19:08 Intake & Output 07/20/18 07/21/18 07/22/18 06:59 06:59 06:59 Intake Total 320 1100 300 Output Total 4 Balance 320 1100 296 Weight 74.9 kg 74.5 kg Exam: General appearance: PRESENT: no acute distress, cooperative, fairly developed and fairly nourished Head exam: PRESENT: atraumatic, normocephalic Eye exam: PRESENT: conjunctiva pale, PERRLA. ABSENT: scleral icterus Neck exam: ABSENT: JVD Respiratory exam: PRESENT: Diminished breath sounds. ABSENT: crackles, rales, rhonchi, unlabored, wheezes Cardiovascular exam: PRESENT: Irregular rate rhythm -+S1, +S2. ABSENT: diastolic murmur, systolic murmur GI/Abdominal exam: PRESENT: normal bowel sounds, soft. ABSENT: guarding, mass, tenderness Extremities exam: ABSENT: No edema Neurological exam: PRESENT: alert, awake, does not really answer questions coherently. Skin exam: PRESENT: dry, warm, Cardiovascular exam: PRESENT: irregular rhythm, +S1, +S2 GI/Abdominal exam: PRESENT: soft. ABSENT: tenderness Results Laboratory Results: 07/20/18 15:50 07/20/18 15:50 07/18/18 07/18/18 07/18/18 16:45 16:45 23:10 Creatine Kinase 728 H 706 H CK-MB (CK-2) 0.77 Troponin I 0.015 07/18/18 07/19/18 07/19/18 23:10 03:39 03:39 Creatine Kinase 756 H CK-MB (CK-2) 0.64 0.59 Troponin I 0.018 0.019 Impressions: Sacrum and Coccyx X-Ray 07/16/18 20:24 IMPRESSION: No fracture. copyright 2011 [employer]- All Rights Reserved Chest X-Ray 07/18/18 00:00 IMPRESSION: Vascular congestion. Increasing basilar opacities and pleural effusions. Assessment & Plan - Diagnosis (1) Hypocalcemia Is this a current diagnosis for this admission?: Yes Plan: Corrected calcium is 7.98. This is due to severe vitamin D deficiency due to poor oral intake and malnutrition. Increase calcium carbonate to 3 times a day. Corrected vitamin D deficiency. (2) Vitamin D deficiency Is this a current diagnosis for this admission?: Yes Plan: Increase vitamin D3 to 5000 units once a day. (3) Hyperparathyroidism Is this a current diagnosis for this admission?: Yes Plan: This is due to vitamin D deficiency and hypocalcemia. (4) Acute kidney injury Is this a current diagnosis for this admission?: Yes Plan: Kidney function seems to be slowly worsening. I think this is due to acute prerenal azotemia due to volume depletion due to poor oral intake. I did have patient needs to have some IV fluids since he is not taking much orally. However if the patient is not going to continue to start drinking on his own then this is not sustainable. Patient is being worked up to go to hospice. The family including the daughter and at bedside seems to be agreeable to that but apparently he did not qualify today for hospice so he will be reevaluated tomorrow. (5) Iron deficiency anemia Is this a current diagnosis for this admission?: Yes Plan: Ferrous sulfate started. (6) Anemia, chronic disease Is this a current diagnosis for this admission?: Yes (7) Metabolic acidosis Is this a current diagnosis for this admission?: Yes Plan: On sodium bicarbonate. (8) Acute hyponatremia Is this a current diagnosis for this admission?: Yes Plan: Due to volume depletion due to poor p.o. intake. (9) Atrial fibrillation Qualifiers: Atrial fibrillation type: chronic Qualified Code(s): I48.2 - Chronic atrial fibrillation Is this a current diagnosis for this admission?: Yes (10) Dementia Is this a current diagnosis for this admission?: Yes Plan: With psychotic episodes. (11) Failure to thrive Is this a current diagnosis for this admission?: Yes (12) Dehydration Is this a current diagnosis for this admission?: Yes (13) Malnutrition Qualifiers: Malnutrition type: protein-calorie malnutrition Protein-calorie malnutrition severity: moderate Qualified Code(s): E44.0 - Moderate protein- calorie malnutrition Is this a current diagnosis for this admission?: Yes Plan: On Megace but does not seem to be working. - Notes Notes: The patient has generalized debility and failure to thrive. I agree with working on hospice care for this patient. - Time Time with patient: 15-25 minutes
[2018-07-21] MEDS: TAMSULOSIN HCL 0.4 MG CAP.SR.24H PO SCH (22:20)
[2018-07-21] MEDS: ATORVASTATIN CALCIUM 10 MG TABLET PO SCH (22:20)
[2018-07-22] MEDS: DILTIAZEM HCL 30 MG TABLET PO SCH ×4 (00:37→19:10)
[2018-07-22 08:28] LABS: HEMATOCRIT 22.7 % (37.9-51.0); MEAN CORPUSCULAR HEMOGLOBIN 24.9 pg (27.0-33.4); MEAN CORPUSCULAR HGB CONC 33.1 g/dL (32.0-36.0); MEAN CORPUSCULAR VOLUME 75 fl (80-97); PLATELET COUNT 167 10^3/uL (150-450); RED BLOOD COUNT 3.02 10^6/uL (4.35-5.55); RED CELL DISTRIBUTION WIDTH 19.1 % (11.5-14.0); WHITE BLOOD COUNT 9.3 10^3/uL (4.0-10.5)
[2018-07-22 09:03] LABS: ALANINE AMINOTRANSFERASE 28 U/L (21-72); ALBUMIN 2.2 g/dL (3.5-5.0); ALKALINE PHOSPHATASE 545 U/L (38-126); ANION GAP 12 (5-19); ASPARTATE AMINO TRANSFERASE 135 U/L (17-59); BILIRUBIN,DIRECT 0.5 mg/dL (0.0-0.4); BILIRUBIN,TOTAL 0.5 mg/dL (0.2-1.3); BLOOD UREA NITROGEN 48 mg/dL (7-20); CARBON DIOXIDE 20 mmol/L (22-30); CHLORIDE 112 mmol/L (98-107); GLUCOSE 147 mg/dL (75-110); SODIUM 143.5 mmol/L (137-145)
[2018-07-22 09:16] LABS: HEMOGLOBIN 7.5 g/dL (13.5-17.0)
[2018-07-22 09:17] LABS: ABSOLUTE LYMPHOCYTES# (MANUAL) 1.5 10^3/uL (0.5-4.7); ABSOLUTE MONOCYTES # (MANUAL) 0.7 10^3/uL (0.1-1.4); ABSOLUTE NEUTROPHILS# (MANUAL) 7.2 10^3/uL (1.7-8.2); BASOPHILS % (MANUAL) 0 % (0-2); EOSINOPHILS % (MANUAL) 0 % (0-6); LYMPHOCYTES % (MANUAL) 16 % (13-45); MONOCYTES % (MANUAL) 7 % (3-13); NUCLEATED RED BLOOD CELLS 1 /100 WBC (0); SEGMENTED NEUTROPHILS % (MAN) 77 % (42-78); TOTAL CELLS COUNTED 100
[2018-07-22 09:18] LABS: ANISOCYTOSIS 2+; BURR CELLS SLIGHT; CALCIUM 6.1 mg/dL (8.4-10.2); OVALOCYTES SLIGHT; SCHISTOCYTES SLIGHT; TARGET CELLS SLIGHT; TEAR DROP CELLS SLIGHT; TOXIC GRANULATION SLIGHT
[2018-07-22 09:19] LABS: PLATELET COMMENT INCREASED; POIKILOCYTOSIS 1+; POLYCHROMASIA SLIGHT
[2018-07-22] MEDS ORDERED: NORMAL SALINE 250 ML IV PRN ×2 (09:25)
[2018-07-22] MEDS: BUSPIRONE HCL 10 MG TABLET PO SCH ×2 (09:55→17:44)
[2018-07-22] MEDS: POTASSIUM CHLORIDE 20 MEQ/15 ML UDCUP PO SCH (09:55)
[2018-07-22] MEDS: CHOLECALCIFEROL (D3) 1,000 UNIT TABLET PO SCH (09:56)
[2018-07-22] MEDS: APIXABAN 2.5 MG TABLET PO SCH ×2 (09:56→19:02)
[2018-07-22] MEDS: CALCIUM CARBONATE 500 MG TABLET PO SCH ×3 (09:57→17:44)
[2018-07-22] MEDS: VALPROATE SODIUM SYRUP 250 MG/5 ML UDCUP PO SCH ×4 (09:58→22:12)
[2018-07-22] MEDS: FERROUS SULFATE LIQUID 300 MG/5 ML UDC PO SCH ×3 (09:59→19:01)
[2018-07-22] MEDS: LEVETIRACETAM ORAL SOLN 500 MG/5 ML UDCUP PO SCH ×2 (10:02→22:12)
[2018-07-22] MEDS: MEGESTROL ACETATE SUSP 400 MG/10 ML UDCUP PO SCH (10:02)
[2018-07-22] MEDS: GLIMEPIRIDE 1 MG TABLET PO SCH (11:37)
--- NOTE | 2018-07-22 14:28 | RADIOLOGY REPORT (SQ) ---
EXAM DESCRIPTION: PICC INSERTION; U/S GUIDE FOR VASCULAR ACCESS; FLUORO/CV PLACEMENT COMPLETED DATE/TIME: 07/22/2018 2:10 pm REASON FOR STUDY: IV ACCESS COMPARISON: None. FLUOROSCOPY TIME: 0.5 minutes 2 images saved to PACS. TECHNIQUE: Fluoroscopic and ultrasound guided PICC placement. LIMITATIONS: None. PROCEDURE: After written consent and assessment were obtained, the patient was brought into the fluo roscopy room and placed supine on the table. Ultrasound evaluation of potential access sites were per formed. After successfully identifying a patent right basilic vein, the right arm was prepped and alex ped in a sterile fashion along with the ultrasound probe. The entry site was anesthetized with 1% lid ocaine. A 21 gauge 7 cm needle was advanced through the skin and into the basilic vein under live ult rasound guidance. An ultrasound image was saved to PACS confirming access site. A .018 guide wire w as then inserted through the needle and into the venous system. The needle was then removed and an 11 blade scalpel was used to make a 1cm skin incision. A 5 fr peel-away sheath was advanced over the w danis and into the venous system. A measurement was then made using the existing wire and live fluorosc opic guidance. The wire was then removed and trimmed. The PICC was advanced through the peel-away she ath and into the venous system. The peel-away sheath was removed and the catheter was adhered to the patients arm with a stat lock. The catheter was then aspirated and flushed and a sterile bandage was placed over the access site. A fluoroscopic spot image was saved to PACS confirming the catheter tip within the superior vena cava. IMPRESSION: SUCCESSFUL PLACEMENT OF A 5 FR DUAL LUMEN 41 CM PICC IN THE RIGHT BASILIC VEIN. COMMENT: Patient medication list reviewed: Yes- Quality ID# [id number]:Eligible professional attests to doc umenting in the medical record they obtained, updated, or reviewed the patient's current medications. . Quality ID 145: Final reports for procedures using fluoroscopy that document radiation exposure isaias stalin, or exposure time and number of fluorographic images (if radiation exposure indices are not avail able) Quality ID #76: The patient was prepped and draped using maximum sterile barrier technique including cap, mask, sterile gown, sterile gloves, a large sterile sheet, hand hygiene, and 2% Chlorhexidine fo r cutaneous antisepsis. When ultrasound is used, sterile ultrasound techniques are followed requiring sterile gel and sterile probes. TECHNICAL DOCUMENTATION: JOB ID: [id number] [employer]- All Rights Reserved rev-12/25 Reading location - IP/workstation name: [facility]
[2018-07-22] MEDS: INSULIN LISPRO 100 UNIT/ML 3 ML VIAL SUBCUT PRN (16:46)
--- NOTE | 2018-07-22 17:06 | PDOC PROGRESS REPORT ---
Subjective Progress Note for:: 07/22/18 Subjective:: The patient is still confused. He is still not eating well. Discussed with nursing about the need to place a PICC line and have restraints so the patient does not pull it out again so we can give him blood and fluids. Discussed with the daughter yesterday about DNR and hospice. Reason For Visit: HYPOCALCEMIA, VIT D DEF, MALNUTRITION ACIDOSIS Physical Exam Vital Signs: Temp Pulse Resp BP Pulse Ox 97.4 F 92 16 106/56 L 99 07/22/18 15:22 07/22/18 15:22 07/22/18 15:22 07/22/18 15:22 07/22/18 15:22 Intake & Output 07/21/18 07/22/18 07/23/18 06:59 06:59 06:59 Intake Total 1100 774 Output Total 6 Balance 1100 768 Weight 74.5 kg 74.5 kg General appearance: PRESENT: mild distress Head exam: PRESENT: atraumatic Eye exam: PRESENT: conjunctival injection Mouth exam: PRESENT: dry mucosa Neck exam: PRESENT: carotid bruit. ABSENT: JVD Respiratory exam: PRESENT: rhonchi Cardiovascular exam: PRESENT: irregular rhythm, +S1, +S2 GI/Abdominal exam: PRESENT: normal bowel sounds, soft Extremities exam: PRESENT: tenderness Musculoskeletal exam: PRESENT: tenderness Neurological exam: PRESENT: awake Psychiatric exam: PRESENT: anxious, flat affect Results Laboratory Results: 07/22/18 08:13 07/22/18 08:13 07/22/18 07/22/18 07/22/18 05:38 05:38 08:13 WBC Cancelled RBC Cancelled Hgb Cancelled Hct Cancelled MCV Cancelled MCH Cancelled MCHC Cancelled RDW Cancelled Plt Count Cancelled Seg Neutrophils % Cancelled Lymphocytes % Cancelled Monocytes % Cancelled Eosinophils % Cancelled Basophils % Cancelled Absolute Neutrophils Cancelled Absolute Lymphocytes Cancelled Absolute Monocytes Cancelled Absolute Eosinophils Cancelled Absolute Basophils Cancelled Sodium Cancelled 143.5 Potassium Cancelled 4.0 Chloride Cancelled 112 H Carbon Dioxide Cancelled 20 L Anion Gap Cancelled 12 BUN Cancelled 48 H Creatinine Cancelled 1.42 H Est GFR ( Amer) Cancelled 59 L Est GFR (Non-Af Amer) Cancelled 49 L Glucose Cancelled 147 H Calcium Cancelled 6.1 L* Total Bilirubin Cancelled 0.5 AST Cancelled 135 H ALT Cancelled 28 Alkaline Phosphatase Cancelled 545 H Total Protein Cancelled 5.0 L Albumin Cancelled 2.2 L Blood Type Antibody Screen 07/22/18 07/22/18 08:13 10:48 WBC 9.3 RBC 3.02 L Hgb 7.5 L Hct 22.7 L MCV 75 L MCH 24.9 L MCHC 33.1 RDW 19.1 H Plt Count 167 Seg Neutrophils % Not Reportable Lymphocytes % Not Reportable Monocytes % Not Reportable Eosinophils % Not Reportable Basophils % Not Reportable Absolute Neutrophils Not Reportable Absolute Lymphocytes Not Reportable Absolute Monocytes Not Reportable Absolute Eosinophils Not Reportable Absolute Basophils Not Reportable Sodium Potassium Chloride Carbon Dioxide Anion Gap BUN Creatinine Est GFR ( Amer) Est GFR (Non-Af Amer) Glucose Calcium Total Bilirubin AST ALT Alkaline Phosphatase Total Protein Albumin Blood Type O POSITIVE Antibody Screen NEGATIVE 07/18/18 07/18/18 07/18/18 16:45 16:45 23:10 Creatine Kinase 728 H 706 H CK-MB (CK-2) 0.77 Troponin I 0.015 07/18/18 07/19/18 07/19/18 23:10 03:39 03:39 Creatine Kinase 756 H CK-MB (CK-2) 0.64 0.59 Troponin I 0.018 0.019 Impressions: Sacrum and Coccyx X-Ray 07/16/18 20:24 IMPRESSION: No fracture. copyright 2010 [employer]- All Rights Reserved Chest X-Ray 07/18/18 00:00 IMPRESSION: Vascular congestion. Increasing basilar opacities and pleural effusions. Guidance Fluoroscopy 07/22/18 00:00 IMPRESSION: SUCCESSFUL PLACEMENT OF A 5 FR DUAL LUMEN 41 CM PICC IN THE RIGHT BASILIC VEIN. Interventional Vascular Procedure 07/22/18 00:00 IMPRESSION: SUCCESSFUL PLACEMENT OF A 5 FR DUAL LUMEN 41 CM PICC IN THE RIGHT BASILIC VEIN. PICC Line Insertion 07/22/18 00:00 IMPRESSION: SUCCESSFUL PLACEMENT OF A 5 FR DUAL LUMEN 41 CM PICC IN THE RIGHT BASILIC VEIN. Assessment & Plan - Diagnosis (1) Atrial fibrillation Qualifiers: Atrial fibrillation type: chronic Qualified Code(s): I48.2 - Chronic atrial fibrillation Is this a current diagnosis for this admission?: Yes Plan: Recurrent episodes of fast A. fib. Will reconsult with cardiology and add a small dose of calcium channel block (2) Decubitus ulcer of sacral region, stage 1 Is this a current diagnosis for this admission?: Yes (3) Failure to thrive Is this a current diagnosis for this admission?: Yes Plan: Continue current treatment (4) Hypocalcemia Is this a current diagnosis for this admission?: Yes (5) Anemia, chronic disease Is this a current diagnosis for this admission?: Yes Plan: His H&H this morning of less than 7.5. We will transfuse 2 units of packed red cells (6) CKD (chronic kidney disease) stage 3, GFR 30-59 ml/min Is this a current diagnosis for this admission?: Yes Plan: Will use some hydration and insert a Steve for strict JOHN's (7) Metastatic malignant neoplasm to prostate Is this a current diagnosis for this admission?: Yes (8) Dementia Is this a current diagnosis for this admission?: Yes Plan: We will continue with current treatment (9) Acute psychosis Is this a current diagnosis for this admission?: Yes (10) Memory loss, short term Is this a current diagnosis for this admission?: Yes (11) Vitamin D deficiency Is this a current diagnosis for this admission?: Yes Plan: Most probably related to hypocalcemia. We will add vitamin D
[2018-07-22] MEDS: NORMAL SALINE 1000 ML 1,000 ML IV PRN (19:01)
[2018-07-22] MEDS ORDERED: NORMAL SALINE 10 ML SDV (AFTER EACH USE) IV PRN (20:40)
--- NOTE | 2018-07-22 21:22 | PDOC PROGRESS REPORT ---
Subjective Progress Note for:: 07/22/18 Subjective:: Patient's clinical condition remains the same. He still does not eat much and still confused. Does not been decided whether his plan to be going to hospice being comfort care. Today his hemoglobin dropped to 7.5 so he is going to get a unit of blood transfusion after PICC line placement. He also now has an order for IV fluids. Steve catheter was also placed. Reason For Visit: HYPOCALCEMIA, VIT D DEF, MALNUTRITION ACIDOSIS Physical Exam Vital Signs: Temp Pulse Resp BP Pulse Ox 98.1 F 73 16 106/54 L 99 07/22/18 20:51 07/22/18 20:51 07/22/18 20:51 07/22/18 20:51 07/22/18 20:51 Intake & Output 07/21/18 07/22/18 07/23/18 06:59 06:59 06:59 Intake Total 1100 774 425 Output Total 6 325 Balance 1100 768 100 Weight 74.5 kg 74.5 kg Exam: General appearance: PRESENT: Sleeping with arousable, no acute distress, cooperative, fairly developed and fairly nourished Head exam: PRESENT: atraumatic, normocephalic Eye exam: PRESENT: conjunctiva pale, PERRLA. ABSENT: scleral icterus Neck exam: ABSENT: JVD Respiratory exam: PRESENT: Diminished breath sounds. ABSENT: crackles, rales, rhonchi, unlabored, wheezes Cardiovascular exam: PRESENT: Irregular rate rhythm -+S1, +S2. ABSENT: diastolic murmur, systolic murmur GI/Abdominal exam: PRESENT: normal bowel sounds, soft. ABSENT: guarding, mass, tenderness Extremities exam: Bilateral ankle edema Neurological exam: PRESENT: alert, awake, oriented to person, place and time. Skin exam: PRESENT: dry, warm, Cardiovascular exam: PRESENT: irregular rhythm, +S1, +S2 GI/Abdominal exam: PRESENT: soft. ABSENT: tenderness Results Laboratory Results: 07/22/18 08:13 07/22/18 08:13 07/22/18 07/22/18 07/22/18 05:38 05:38 08:13 WBC Cancelled RBC Cancelled Hgb Cancelled Hct Cancelled MCV Cancelled MCH Cancelled MCHC Cancelled RDW Cancelled Plt Count Cancelled Seg Neutrophils % Cancelled Lymphocytes % Cancelled Monocytes % Cancelled Eosinophils % Cancelled Basophils % Cancelled Absolute Neutrophils Cancelled Absolute Lymphocytes Cancelled Absolute Monocytes Cancelled Absolute Eosinophils Cancelled Absolute Basophils Cancelled Sodium Cancelled 143.5 Potassium Cancelled 4.0 Chloride Cancelled 112 H Carbon Dioxide Cancelled 20 L Anion Gap Cancelled 12 BUN Cancelled 48 H Creatinine Cancelled 1.42 H Est GFR ( Amer) Cancelled 59 L Est GFR (Non-Af Amer) Cancelled 49 L Glucose Cancelled 147 H Calcium Cancelled 6.1 L* Total Bilirubin Cancelled 0.5 AST Cancelled 135 H ALT Cancelled 28 Alkaline Phosphatase Cancelled 545 H Total Protein Cancelled 5.0 L Albumin Cancelled 2.2 L Blood Type Antibody Screen 07/22/18 07/22/18 08:13 10:48 WBC 9.3 RBC 3.02 L Hgb 7.5 L Hct 22.7 L MCV 75 L MCH 24.9 L MCHC 33.1 RDW 19.1 H Plt Count 167 Seg Neutrophils % Not Reportable Lymphocytes % Not Reportable Monocytes % Not Reportable Eosinophils % Not Reportable Basophils % Not Reportable Absolute Neutrophils Not Reportable Absolute Lymphocytes Not Reportable Absolute Monocytes Not Reportable Absolute Eosinophils Not Reportable Absolute Basophils Not Reportable Sodium Potassium Chloride Carbon Dioxide Anion Gap BUN Creatinine Est GFR ( Amer) Est GFR (Non-Af Amer) Glucose Calcium Total Bilirubin AST ALT Alkaline Phosphatase Total Protein Albumin Blood Type O POSITIVE Antibody Screen NEGATIVE 07/18/18 07/18/18 07/18/18 16:45 16:45 23:10 Creatine Kinase 728 H 706 H CK-MB (CK-2) 0.77 Troponin I 0.015 07/18/18 07/19/18 07/19/18 23:10 03:39 03:39 Creatine Kinase 756 H CK-MB (CK-2) 0.64 0.59 Troponin I 0.018 0.019 Impressions: Sacrum and Coccyx X-Ray 07/16/18 20:24 IMPRESSION: No fracture. copyright 2011 [employer]- All Rights Reserved Chest X-Ray 07/18/18 00:00 IMPRESSION: Vascular congestion. Increasing basilar opacities and pleural effusions. Guidance Fluoroscopy 07/22/18 00:00 IMPRESSION: SUCCESSFUL PLACEMENT OF A 5 FR DUAL LUMEN 41 CM PICC IN THE RIGHT BASILIC VEIN. Interventional Vascular Procedure 07/22/18 00:00 IMPRESSION: SUCCESSFUL PLACEMENT OF A 5 FR DUAL LUMEN 41 CM PICC IN THE RIGHT BASILIC VEIN. PICC Line Insertion 07/22/18 00:00 IMPRESSION: SUCCESSFUL PLACEMENT OF A 5 FR DUAL LUMEN 41 CM PICC IN THE RIGHT BASILIC VEIN. Assessment & Plan - Diagnosis (1) Hypocalcemia Is this a current diagnosis for this admission?: Yes Plan: Corrected calcium is 7.54. This is due to severe vitamin D deficiency due to poor oral intake and malnutrition. Increase calcium carbonate to 3 times a day. Correct vitamin D deficiency. (2) Vitamin D deficiency Is this a current diagnosis for this admission?: Yes Plan: Increased vitamin D3 to 5000 units once a day. (3) Hyperparathyroidism Is this a current diagnosis for this admission?: Yes Plan: This is due to vitamin D deficiency and hypocalcemia. (4) Acute kidney injury Is this a current diagnosis for this admission?: Yes Plan: Kidney function seems to be slowly worsening. I think this is due to acute prerenal azotemia due to volume depletion due to poor oral intake. Patient was started on IV fluids today which is most likely going to help kidney function. However patient really needs to start eating and drinking fluids on his own otherwise this is going to recur. (5) Iron deficiency anemia Is this a current diagnosis for this admission?: Yes Plan: Ferrous sulfate started. (6) Anemia, chronic disease Is this a current diagnosis for this admission?: Yes Plan: Patient will receive 2 units of packed RBC today. (7) Metabolic acidosis Is this a current diagnosis for this admission?: Yes Plan: Mild and slightly improving. (8) Acute hyponatremia Is this a current diagnosis for this admission?: Yes Plan: Resolved. (9) Atrial fibrillation Qualifiers: Atrial fibrillation type: chronic Qualified Code(s): I48.2 - Chronic atrial fibrillation Is this a current diagnosis for this admission?: Yes (10) Dementia Is this a current diagnosis for this admission?: Yes (11) Failure to thrive Is this a current diagnosis for this admission?: Yes (12) Dehydration Is this a current diagnosis for this admission?: Yes Plan: Patient on IV fluids. (13) Malnutrition Qualifiers: Malnutrition type: protein-calorie malnutrition Protein-calorie malnutrition severity: moderate Qualified Code(s): E44.0 - Moderate protein- calorie malnutrition Is this a current diagnosis for this admission?: Yes - Time Time with patient: 15-25 minutes
[2018-07-22] MEDS: NORMAL SALINE 10 ML SDV (SCHEDULED) IV SCH (22:08)
[2018-07-22] MEDS: TAMSULOSIN HCL 0.4 MG CAP.SR.24H PO SCH (22:12)
[2018-07-22] MEDS: ATORVASTATIN CALCIUM 10 MG TABLET PO SCH (22:12)
[2018-07-23] MEDS: DILTIAZEM HCL 30 MG TABLET PO SCH ×4 (05:44→17:42)
[2018-07-23] MEDS: NORMAL SALINE 1000 ML 1,000 ML IV PRN ×3 (05:45→20:00)
[2018-07-23 06:11] LABS: HEMATOCRIT 26.8 % (37.9-51.0); HEMOGLOBIN 9.2 g/dL (13.5-17.0); MEAN CORPUSCULAR HEMOGLOBIN 26.7 pg (27.0-33.4); MEAN CORPUSCULAR HGB CONC 34.4 g/dL (32.0-36.0); MEAN CORPUSCULAR VOLUME 78 fl (80-97); PLATELET COUNT 155 10^3/uL (150-450); RED BLOOD COUNT 3.45 10^6/uL (4.35-5.55); RED CELL DISTRIBUTION WIDTH 19.6 % (11.5-14.0); WHITE BLOOD COUNT 10.5 10^3/uL (4.0-10.5)
[2018-07-23 06:28] LABS: ALANINE AMINOTRANSFERASE 29 U/L (21-72); ALBUMIN 2.2 g/dL (3.5-5.0); ALKALINE PHOSPHATASE 583 U/L (38-126); ANION GAP 15 (5-19); ASPARTATE AMINO TRANSFERASE 126 U/L (17-59); BILIRUBIN,DIRECT 0.5 mg/dL (0.0-0.4); BILIRUBIN,TOTAL 0.6 mg/dL (0.2-1.3); BLOOD UREA NITROGEN 47 mg/dL (7-20); CARBON DIOXIDE 17 mmol/L (22-30); CHLORIDE 113 mmol/L (98-107); GLUCOSE 107 mg/dL (75-110); POTASSIUM 4.1 mmol/L (3.6-5.0); SODIUM 144.9 mmol/L (137-145); TOTAL PROTEIN 5.1 g/dL (6.3-8.2)
[2018-07-23 06:34] LABS: ABSOLUTE LYMPHOCYTES# (MANUAL) 2.2 10^3/uL (0.5-4.7); ABSOLUTE MONOCYTES # (MANUAL) 0.7 10^3/uL (0.1-1.4); ABSOLUTE NEUTROPHILS# (MANUAL) 7.6 10^3/uL (1.7-8.2); BASOPHILS % (MANUAL) 0 % (0-2); EOSINOPHILS % (MANUAL) 0 % (0-6); LYMPHOCYTES % (MANUAL) 21 % (13-45); MONOCYTES % (MANUAL) 7 % (3-13); SEGMENTED NEUTROPHILS % (MAN) 72 % (42-78); TOTAL CELLS COUNTED 100
[2018-07-23 06:37] LABS: ANISOCYTOSIS 2+; HYPOCHROMASIA 1+; PLATELET COMMENT ADEQUATE; POIKILOCYTOSIS 1+
[2018-07-23 06:38] LABS: BURR CELLS SLIGHT; HELMET CELLS SLIGHT; OVALOCYTES SLIGHT
[2018-07-23 07:01] LABS: CALCIUM 6.1 mg/dL (8.4-10.2)
[2018-07-23] MEDS: ACETAMINOPHEN 325 MG TABLET PO PRN (08:48)
[2018-07-23] MEDS ORDERED: CALCIUM GLUCONATE 2,222 MG in DEXTROSE 5%-WATER 100 ML IV ONE (09:55)
--- NOTE | 2018-07-23 10:00 | PDOC PROGRESS REPORT ---
Subjective Progress Note for:: 07/23/18 Subjective:: The patient is more awake this morning. He states that he is hungry. He has received IV fluids and 2 units of packed red blood cells. Reason For Visit: HYPOCALCEMIA, VIT D DEF, MALNUTRITION ACIDOSIS Physical Exam Vital Signs: Temp Pulse Resp BP Pulse Ox 98.2 F 113 H 22 H 124/56 L 96 07/23/18 07:44 07/23/18 07:44 07/23/18 07:44 07/23/18 07:44 07/23/18 07:44 Intake & Output 07/22/18 07/23/18 07/24/18 06:59 06:59 06:59 Intake Total 774 2597 Output Total 6 627 Balance 768 1970 Weight 74.5 kg 74.5 kg General appearance: PRESENT: mild distress Head exam: PRESENT: atraumatic Eye exam: PRESENT: conjunctiva pink Respiratory exam: PRESENT: rhonchi Cardiovascular exam: PRESENT: irregular rhythm, +S1, +S2 GI/Abdominal exam: PRESENT: normal bowel sounds, soft Extremities exam: PRESENT: tenderness Musculoskeletal exam: PRESENT: tenderness Neurological exam: PRESENT: awake Psychiatric exam: PRESENT: anxious, flat affect Results Laboratory Results: 07/23/18 05:25 07/23/18 05:25 07/22/18 07/23/18 07/23/18 10:48 05:25 05:25 WBC 10.5 RBC 3.45 L Hgb 9.2 L Hct 26.8 L MCV 78 L MCH 26.7 L MCHC 34.4 RDW 19.6 H Plt Count 155 Seg Neutrophils % Not Reportable Lymphocytes % Not Reportable Monocytes % Not Reportable Eosinophils % Not Reportable Basophils % Not Reportable Absolute Neutrophils Not Reportable Absolute Lymphocytes Not Reportable Absolute Monocytes Not Reportable Absolute Eosinophils Not Reportable Absolute Basophils Not Reportable Sodium 144.9 Potassium 4.1 Chloride 113 H Carbon Dioxide 17 L Anion Gap 15 BUN 47 H Creatinine 1.33 H Est GFR ( Amer) > 60 Est GFR (Non-Af Amer) 53 L Glucose 107 Calcium 6.1 L* Total Bilirubin 0.6 AST 126 H ALT 29 Alkaline Phosphatase 583 H Total Protein 5.1 L Albumin 2.2 L Blood Type O POSITIVE Antibody Screen NEGATIVE 07/18/18 07/18/18 07/18/18 16:45 16:45 23:10 Creatine Kinase 728 H 706 H CK-MB (CK-2) 0.77 Troponin I 0.015 07/18/18 07/19/18 07/19/18 23:10 03:39 03:39 Creatine Kinase 756 H CK-MB (CK-2) 0.64 0.59 Troponin I 0.018 0.019 Impressions: Sacrum and Coccyx X-Ray 07/16/18 20:24 IMPRESSION: No fracture. copyright 2010 [employer]- All Rights Reserved Chest X-Ray 07/18/18 00:00 IMPRESSION: Vascular congestion. Increasing basilar opacities and pleural effusions. Guidance Fluoroscopy 07/22/18 00:00 IMPRESSION: SUCCESSFUL PLACEMENT OF A 5 FR DUAL LUMEN 41 CM PICC IN THE RIGHT BASILIC VEIN. Interventional Vascular Procedure 07/22/18 00:00 IMPRESSION: SUCCESSFUL PLACEMENT OF A 5 FR DUAL LUMEN 41 CM PICC IN THE RIGHT BASILIC VEIN. PICC Line Insertion 07/22/18 00:00 IMPRESSION: SUCCESSFUL PLACEMENT OF A 5 FR DUAL LUMEN 41 CM PICC IN THE RIGHT BASILIC VEIN. Assessment & Plan - Diagnosis (1) Atrial fibrillation Qualifiers: Atrial fibrillation type: chronic Qualified Code(s): I48.2 - Chronic atrial fibrillation Is this a current diagnosis for this admission?: Yes Plan: Recurrent episodes of fast A. fib. Will reconsult with cardiology and add a small dose of calcium channel block (2) Decubitus ulcer of sacral region, stage 1 Is this a current diagnosis for this admission?: Yes Plan: We will continue local skin care. Will add specialty bed (3) Failure to thrive Is this a current diagnosis for this admission?: Yes Plan: We will continue with IV fluids and try to increase oral intake (4) Hypocalcemia Is this a current diagnosis for this admission?: Yes Plan: Corrected calcium is 7.8. We will obtain PTH and vitamin D. Will consult nephrology (5) Anemia, chronic disease Is this a current diagnosis for this admission?: Yes Plan: Improving after the transfusion of 2 units of cells (6) CKD (chronic kidney disease) stage 3, GFR 30-59 ml/min Is this a current diagnosis for this admission?: Yes (7) Metastatic malignant neoplasm to prostate Is this a current diagnosis for this admission?: Yes Plan: We will reconsult hematology oncology (8) Dementia Is this a current diagnosis for this admission?: Yes Plan: We will continue with current treatment (9) Acute psychosis Is this a current diagnosis for this admission?: Yes (10) Memory loss, short term Is this a current diagnosis for this admission?: Yes (11) Vitamin D deficiency Is this a current diagnosis for this admission?: Yes Plan: Most probably related to hypocalcemia. We will add vitamin D
[2018-07-23] MEDS: CHOLECALCIFEROL (D3) 1,000 UNIT TABLET PO SCH ×2 (11:00→11:16)
[2018-07-23] MEDS: CALCIUM CARBONATE 500 MG TABLET PO SCH ×4 (11:00→17:43)
[2018-07-23] MEDS: APIXABAN 2.5 MG TABLET PO SCH ×3 (11:00→18:54)
[2018-07-23] MEDS: BUSPIRONE HCL 10 MG TABLET PO SCH ×3 (11:00→17:44)
[2018-07-23] MEDS: VALPROATE SODIUM SYRUP 250 MG/5 ML UDCUP PO SCH ×4 (11:10→21:46)
[2018-07-23] MEDS: POTASSIUM CHLORIDE 20 MEQ/15 ML UDCUP PO SCH (11:10)
[2018-07-23] MEDS: MEGESTROL ACETATE SUSP 400 MG/10 ML UDCUP PO SCH (11:12)
[2018-07-23] MEDS: NORMAL SALINE 10 ML SDV (SCHEDULED) IV SCH ×2 (11:12→21:44)
[2018-07-23] MEDS: LEVETIRACETAM ORAL SOLN 500 MG/5 ML UDCUP PO SCH ×2 (11:13→21:43)
[2018-07-23] MEDS: FERROUS SULFATE LIQUID 300 MG/5 ML UDC PO SCH ×3 (11:13→17:43)
[2018-07-23] MEDS: GLIMEPIRIDE 1 MG TABLET PO SCH ×2 (11:18→12:55)
--- NOTE | 2018-07-23 16:03 | PDOC PROGRESS REPORT ---
Subjective Progress Note for:: 07/23/18 Subjective:: Patient's clinical condition has not really changed. He is still confused and complains of pain intermittently. He received blood transfusion yesterday. He still currently receiving IV fluids. Reason For Visit: HYPOCALCEMIA, VIT D DEF, MALNUTRITION ACIDOSIS Physical Exam Vital Signs: Temp Pulse Resp BP Pulse Ox 98.5 F 93 20 121/53 L 99 07/23/18 13:30 07/23/18 13:30 07/23/18 13:30 07/23/18 13:30 07/23/18 13:30 Intake & Output 07/22/18 07/23/18 07/24/18 06:59 06:59 06:59 Intake Total 774 2597 Output Total 6 627 Balance 768 1970 Weight 74.5 kg 74.5 kg Exam: General appearance: PRESENT: no acute distress, confused, fairly developed and fairly nourished Head exam: PRESENT: atraumatic, normocephalic Eye exam: PRESENT: conjunctiva pale, PERRLA. ABSENT: scleral icterus Neck exam: ABSENT: JVD Respiratory exam: PRESENT: Diminished breath sounds. ABSENT: crackles, rales, rhonchi, unlabored, wheezes Cardiovascular exam: PRESENT: Regular rate rhythm -+S1, +S2. ABSENT: diastolic murmur, systolic murmur GI/Abdominal exam: PRESENT: normal bowel sounds, soft. ABSENT: guarding, mass, tenderness Extremities exam: ABSENT: No edema Neurological exam: PRESENT: alert, awake, confused on every once in a while he will scream in pain. Skin exam: PRESENT: dry, warm, Cardiovascular exam: PRESENT: irregular rhythm, +S1, +S2 GI/Abdominal exam: PRESENT: soft. ABSENT: tenderness Results Laboratory Results: 07/23/18 05:25 07/23/18 05:25 07/22/18 07/23/18 07/23/18 10:48 05:25 05:25 WBC 10.5 RBC 3.45 L Hgb 9.2 L Hct 26.8 L MCV 78 L MCH 26.7 L MCHC 34.4 RDW 19.6 H Plt Count 155 Seg Neutrophils % Not Reportable Lymphocytes % Not Reportable Monocytes % Not Reportable Eosinophils % Not Reportable Basophils % Not Reportable Absolute Neutrophils Not Reportable Absolute Lymphocytes Not Reportable Absolute Monocytes Not Reportable Absolute Eosinophils Not Reportable Absolute Basophils Not Reportable Sodium 144.9 Potassium 4.1 Chloride 113 H Carbon Dioxide 17 L Anion Gap 15 BUN 47 H Creatinine 1.33 H Est GFR ( Amer) > 60 Est GFR (Non-Af Amer) 53 L Glucose 107 Calcium 6.1 L* Total Bilirubin 0.6 AST 126 H ALT 29 Alkaline Phosphatase 583 H Total Protein 5.1 L Albumin 2.2 L Blood Type O POSITIVE Antibody Screen NEGATIVE 07/18/18 07/18/18 07/18/18 16:45 16:45 23:10 Creatine Kinase 728 H 706 H CK-MB (CK-2) 0.77 Troponin I 0.015 07/18/18 07/19/18 07/19/18 23:10 03:39 03:39 Creatine Kinase 756 H CK-MB (CK-2) 0.64 0.59 Troponin I 0.018 0.019 Impressions: Sacrum and Coccyx X-Ray 07/16/18 20:24 IMPRESSION: No fracture. copyright 2011 [employer]- All Rights Reserved Chest X-Ray 07/18/18 00:00 IMPRESSION: Vascular congestion. Increasing basilar opacities and pleural effusions. Guidance Fluoroscopy 07/22/18 00:00 IMPRESSION: SUCCESSFUL PLACEMENT OF A 5 FR DUAL LUMEN 41 CM PICC IN THE RIGHT BASILIC VEIN. Interventional Vascular Procedure 07/22/18 00:00 IMPRESSION: SUCCESSFUL PLACEMENT OF A 5 FR DUAL LUMEN 41 CM PICC IN THE RIGHT BASILIC VEIN. PICC Line Insertion 07/22/18 00:00 IMPRESSION: SUCCESSFUL PLACEMENT OF A 5 FR DUAL LUMEN 41 CM PICC IN THE RIGHT BASILIC VEIN. Assessment & Plan - Diagnosis (1) Hypocalcemia Is this a current diagnosis for this admission?: Yes Plan: Corrected calcium is 7.54. This is due to severe vitamin D deficiency due to poor oral intake and malnutrition. Increase calcium carbonate to 3 times a day. Correct vitamin D deficiency with vitamin D replacement. (2) Vitamin D deficiency Is this a current diagnosis for this admission?: Yes Plan: Increased vitamin D3 to 5000 units once a day. (3) Hyperparathyroidism Is this a current diagnosis for this admission?: Yes Plan: This is due to vitamin D deficiency and hypocalcemia. (4) Acute kidney injury Is this a current diagnosis for this admission?: Yes Plan: Kidney function seems to be slowly worsening. I think this is due to acute prerenal azotemia due to volume depletion due to poor oral intake. Patient was started on IV fluids today which is most likely going to help kidney function. His kidney function is improved today. However patient really needs to start eating and drinking fluids on his own otherwise this is going to recur. Considering how the patient has been behaving I do not think this is sustainable. I think patient really just needs to be on comfort care at this point. (5) Iron deficiency anemia Is this a current diagnosis for this admission?: Yes Plan: Ferrous sulfate started. (6) Anemia, chronic disease Is this a current diagnosis for this admission?: Yes Plan: Patient received 2 units packed RBC yesterday. (7) Metabolic acidosis Is this a current diagnosis for this admission?: Yes Plan: Slightly worse today due to IV fluids. (8) Atrial fibrillation Qualifiers: Atrial fibrillation type: chronic Qualified Code(s): I48.2 - Chronic atrial fibrillation Is this a current diagnosis for this admission?: Yes (9) Dementia Is this a current diagnosis for this admission?: Yes (10) Failure to thrive Is this a current diagnosis for this admission?: Yes (11) Dehydration Is this a current diagnosis for this admission?: Yes Plan: Patient on IV fluids. (12) Malnutrition Qualifiers: Malnutrition type: protein-calorie malnutrition Protein-calorie malnutrition severity: moderate Qualified Code(s): E44.0 - Moderate protein- calorie malnutrition Is this a current diagnosis for this admission?: Yes Plan: On Megace but does not seem to be working. - Notes Notes: No further recommendations from nephrology standpoint. The patient continues to have poor oral intake which is essentially failure to thrive, I think the patient needs to be chosen comfort care measures. - Time Time with patient: 15-25 minutes
[2018-07-23] MEDS: INSULIN LISPRO 100 UNIT/ML 3 ML VIAL SUBCUT PRN (17:46)
[2018-07-23] MEDS: TAMSULOSIN HCL 0.4 MG CAP.SR.24H PO SCH (21:44)
[2018-07-23] MEDS: ATORVASTATIN CALCIUM 10 MG TABLET PO SCH (21:44)
[2018-07-24] MEDS: DILTIAZEM HCL 30 MG TABLET PO SCH ×4 (00:43→18:03)
[2018-07-24] MEDS: RISPERIDONE 0.25 MG TABLET PO PRN (01:37)
[2018-07-24] MEDS: ACETAMINOPHEN 325 MG TABLET PO PRN (01:37)
[2018-07-24] MEDS ORDERED: HALOPERIDOL LACTATE INJ 5 MG/1 ML VIAL IM ONE (03:15)
[2018-07-24] MEDS: NORMAL SALINE 1000 ML 1,000 ML IV PRN ×3 (04:17→21:30)
[2018-07-24] MEDS: GLIMEPIRIDE 1 MG TABLET PO SCH (08:44)
[2018-07-24] MEDS: BUSPIRONE HCL 10 MG TABLET PO SCH ×2 (10:37→18:02)
[2018-07-24] MEDS: VALPROATE SODIUM SYRUP 250 MG/5 ML UDCUP PO SCH ×4 (10:38→21:33)
[2018-07-24] MEDS: APIXABAN 2.5 MG TABLET PO SCH ×2 (10:39→18:04)
[2018-07-24] MEDS: FERROUS SULFATE LIQUID 300 MG/5 ML UDC PO SCH ×3 (10:40→18:05)
[2018-07-24] MEDS: LEVETIRACETAM ORAL SOLN 500 MG/5 ML UDCUP PO SCH ×2 (10:41→21:33)
[2018-07-24] MEDS: POTASSIUM CHLORIDE 20 MEQ/15 ML UDCUP PO SCH (10:41)
[2018-07-24] MEDS: MEGESTROL ACETATE SUSP 400 MG/10 ML UDCUP PO SCH (10:42)
[2018-07-24] MEDS: NORMAL SALINE 10 ML SDV (SCHEDULED) IV SCH ×2 (10:43→21:32)
[2018-07-24] MEDS: CALCIUM CARBONATE 500 MG TABLET PO SCH ×3 (10:43→18:06)
[2018-07-24] MEDS: CHOLECALCIFEROL (D3) 1,000 UNIT TABLET PO SCH (10:44)
--- NOTE | 2018-07-24 13:00 | PDOC PROGRESS REPORT ---
Subjective Progress Note for:: 07/24/18 Subjective:: Covering the weekend for Dr. Milian Patient was seen and examined. He is confused and demented but appears in no acute distress. Reason For Visit: HYPOCALCEMIA, VIT D DEF, MALNUTRITION ACIDOSIS Physical Exam Vital Signs: Temp Pulse Resp BP Pulse Ox 97.8 F 84 18 134/73 H 100 07/24/18 11:17 07/24/18 11:17 07/24/18 11:17 07/24/18 11:17 07/24/18 11:17 Intake & Output 07/23/18 07/24/18 07/25/18 06:59 06:59 06:59 Intake Total 2597 6363 Output Total 627 2086 Balance 1970 4277 Weight 164 lb 3.91 oz 153 lb 7.068 oz General appearance: PRESENT: no acute distress, obese Head exam: PRESENT: atraumatic Eye exam: ABSENT: conjunctival injection Mouth exam: PRESENT: neck supple Neck exam: ABSENT: meningismus Respiratory exam: PRESENT: clear to auscultation yuliya. ABSENT: accessory muscle use Cardiovascular exam: PRESENT: irregular rhythm GI/Abdominal exam: PRESENT: normal bowel sounds, soft Neurological exam: PRESENT: awake. ABSENT: oriented to person, oriented to place, oriented to time, oriented to situation Results Laboratory Results: 07/23/18 05:25 07/23/18 05:25 07/18/18 07/18/18 07/18/18 16:45 16:45 23:10 Creatine Kinase 728 H 706 H CK-MB (CK-2) 0.77 Troponin I 0.015 07/18/18 07/19/18 07/19/18 23:10 03:39 03:39 Creatine Kinase 756 H CK-MB (CK-2) 0.64 0.59 Troponin I 0.018 0.019 Impressions: Sacrum and Coccyx X-Ray 07/16/18 20:24 IMPRESSION: No fracture. copyright 2011 [employer]- All Rights Reserved Chest X-Ray 07/18/18 00:00 IMPRESSION: Vascular congestion. Increasing basilar opacities and pleural effusions. Guidance Fluoroscopy 07/22/18 00:00 IMPRESSION: SUCCESSFUL PLACEMENT OF A 5 FR DUAL LUMEN 41 CM PICC IN THE RIGHT BASILIC VEIN. Interventional Vascular Procedure 07/22/18 00:00 IMPRESSION: SUCCESSFUL PLACEMENT OF A 5 FR DUAL LUMEN 41 CM PICC IN THE RIGHT BASILIC VEIN. PICC Line Insertion 07/22/18 00:00 IMPRESSION: SUCCESSFUL PLACEMENT OF A 5 FR DUAL LUMEN 41 CM PICC IN THE RIGHT BASILIC VEIN. Assessment & Plan - Diagnosis (1) Failure to thrive Is this a current diagnosis for this admission?: Yes Plan: Continue Megace (2) Malnutrition Qualifiers: Malnutrition type: protein-calorie malnutrition Protein-calorie malnutrition severity: moderate Qualified Code(s): E44.0 - Moderate protein- calorie malnutrition Is this a current diagnosis for this admission?: Yes Plan: Recommend nutrition supplements and dietitian consult (3) Atrial fibrillation Qualifiers: Atrial fibrillation type: chronic Qualified Code(s): I48.2 - Chronic atrial fibrillation Is this a current diagnosis for this admission?: Yes Plan: Currently rate controlled. Cardiology consulted by Dr. Milian (4) Decubitus ulcer of sacral region, stage 1 Is this a current diagnosis for this admission?: Yes Plan: Continue wound care (5) Dementia Is this a current diagnosis for this admission?: Yes Plan: Continue current medications (6) Hypocalcemia Is this a current diagnosis for this admission?: Yes Plan: Continue current supplements (7) Chronic kidney disease Qualifiers: Chronic kidney disease stage: stage 2 (mild) Is this a current diagnosis for this admission?: Yes Plan: Monitor renal function (8) Dehydration Is this a current diagnosis for this admission?: Yes Plan: Patient on IV fluids (9) Physical deconditioning Is this a current diagnosis for this admission?: Yes (10) Metastatic malignant neoplasm to prostate Is this a current diagnosis for this admission?: Yes - Plan Summary Plan Summary: Recommend comfort care
--- NOTE | 2018-07-24 15:25 | RADIOLOGY REPORT (SQ) ---
EXAM DESCRIPTION: CT HEAD WITHOUT COMPLETED DATE/TIME: 07/24/2018 2:45 pm REASON FOR STUDY: S/P fall COMPARISON: 07/14/2018 TECHNIQUE: Axial images acquired through the brain without intravenous contrast. Images reviewed wi th bone, brain and subdural windows. Images stored on PACS. All CT scanners at this facility use dose modulation, iterative reconstruction, and/or weight based d osing when appropriate to reduce radiation dose to as low as reasonably achievable (ALARA). [facility]: Dose Right [facility]: CareDose [facility]: Dose Right [facility]: Teradose 4D [facility]: CriticalBlue RADIATION DOSE: CT Rad equipment meets quality standard of care and radiation dose reduction techniq ues were employed. CTDIvol: 53.2 mGy. DLP: 1017 mGy-cm. mGy. LIMITATIONS: None. FINDINGS: VENTRICLES: Normal size and contour. CEREBRUM: No masses. No hemorrhage. No midline shift. No evidence for acute infarction. Normal gra y/white matter differentiation. No areas of low density in the white matter. CEREBELLUM: No masses. No hemorrhage. No alteration of density. No evidence for acute infarction. EXTRAAXIAL SPACES: No fluid collections. No masses. ORBITS AND GLOBE: No intra- or extraconal masses. Normal contour of globe without masses. CALVARIUM: No fracture. PARANASAL SINUSES: No fluid or mucosal thickening. SOFT TISSUES: No mass or hematoma. OTHER: No other significant finding. IMPRESSION: NORMAL BRAIN CT WITHOUT CONTRAST. EVIDENCE OF ACUTE STROKE: NO. COMMENT: Quality ID # [id number]: Final reports with documentation of one or more dose reduction techniques (e.g., Automated exposure control, adjustment of the mA and/or kV according to patient size, use of iterative reconstruction technique) TECHNICAL DOCUMENTATION: JOB ID: [id number] [employer]- All Rights Reserved Reading location - IP/workstation name: [email or web address]
[2018-07-24] MEDS: HALOPERIDOL LACTATE INJ 5 MG/1 ML VIAL IM PRN (21:29)
[2018-07-24] MEDS: TAMSULOSIN HCL 0.4 MG CAP.SR.24H PO SCH (21:31)
[2018-07-24] MEDS: ATORVASTATIN CALCIUM 10 MG TABLET PO SCH (21:31)
[2018-07-25] MEDS: DILTIAZEM HCL 30 MG TABLET PO SCH ×4 (01:35→17:52)
[2018-07-25] MEDS: GLIMEPIRIDE 1 MG TABLET PO SCH (08:40)
--- NOTE | 2018-07-25 10:48 | PDOC PROGRESS REPORT ---
Subjective Subjective:: Covering the weekend for Dr. Milian Patient was seen and examined. He is confused and demented but appears in no acute distress. Patient apparently had a fall last night and CT scan was ordered of the brain and was unremarkable. Daughter is at bedside. She was inquiring about pacemaker for her father. I did not think it is indicated and discussed with her. Reason For Visit: HYPOCALCEMIA, VIT D DEF, MALNUTRITION ACIDOSIS Physical Exam Vital Signs: Temp Pulse Resp BP Pulse Ox 97.8 F 102 H 17 123/68 100 07/25/18 07:09 07/25/18 07:09 07/25/18 07:09 07/25/18 07:09 07/25/18 07:09 Intake & Output 07/24/18 07/25/18 07/26/18 06:59 06:59 06:59 Intake Total 6363 1800 Output Total 2086 1502 Balance 4277 298 Weight 153 lb 7.068 oz 134 lb 14.766 oz Exam: General appearance: PRESENT: no acute distress, obese Head exam: PRESENT: atraumatic Eye exam: ABSENT: conjunctival injection Mouth exam: PRESENT: neck supple Neck exam: ABSENT: meningismus Respiratory exam: PRESENT: clear to auscultation yuliya. ABSENT: accessory muscle use Cardiovascular exam: PRESENT: irregular rhythm GI/Abdominal exam: PRESENT: normal bowel sounds, soft Neurological exam: PRESENT: awake. ABSENT: oriented to person, oriented to place, oriented to time, oriented to situation Results Laboratory Results: 07/23/18 05:25 07/23/18 05:25 07/18/18 07/18/18 07/18/18 16:45 16:45 23:10 Creatine Kinase 728 H 706 H CK-MB (CK-2) 0.77 Troponin I 0.015 07/18/18 07/19/18 07/19/18 23:10 03:39 03:39 Creatine Kinase 756 H CK-MB (CK-2) 0.64 0.59 Troponin I 0.018 0.019 Impressions: Sacrum and Coccyx X-Ray 07/16/18 20:24 IMPRESSION: No fracture. copyright 2010 [employer]- All Rights Reserved Chest X-Ray 07/18/18 00:00 IMPRESSION: Vascular congestion. Increasing basilar opacities and pleural effusions. Guidance Fluoroscopy 07/22/18 00:00 IMPRESSION: SUCCESSFUL PLACEMENT OF A 5 FR DUAL LUMEN 41 CM PICC IN THE RIGHT BASILIC VEIN. Interventional Vascular Procedure 07/22/18 00:00 IMPRESSION: SUCCESSFUL PLACEMENT OF A 5 FR DUAL LUMEN 41 CM PICC IN THE RIGHT BASILIC VEIN. PICC Line Insertion 07/22/18 00:00 IMPRESSION: SUCCESSFUL PLACEMENT OF A 5 FR DUAL LUMEN 41 CM PICC IN THE RIGHT BASILIC VEIN. Head CT 07/24/18 00:00 IMPRESSION: NORMAL BRAIN CT WITHOUT CONTRAST. EVIDENCE OF ACUTE STROKE: NO. Assessment & Plan - Diagnosis (1) Failure to thrive Is this a current diagnosis for this admission?: Yes Plan: Continue Megace (2) Malnutrition Qualifiers: Malnutrition type: protein-calorie malnutrition Protein-calorie malnutrition severity: moderate Qualified Code(s): E44.0 - Moderate protein- calorie malnutrition Is this a current diagnosis for this admission?: Yes Plan: Recommend nutrition supplements and dietitian consult (3) Atrial fibrillation Qualifiers: Atrial fibrillation type: chronic Qualified Code(s): I48.2 - Chronic atrial fibrillation Is this a current diagnosis for this admission?: Yes Plan: Currently rate in 100s. Cardiology consulted by Dr. Milian. Continue current management. (4) Decubitus ulcer of sacral region, stage 1 Is this a current diagnosis for this admission?: Yes Plan: Continue wound care (5) Dementia Is this a current diagnosis for this admission?: Yes Plan: Continue current medications (6) Hypocalcemia Is this a current diagnosis for this admission?: Yes Plan: Continue current supplements (7) Chronic kidney disease Qualifiers: Chronic kidney disease stage: stage 2 (mild) Is this a current diagnosis for this admission?: Yes Plan: Monitor renal function. Nephrology signed off. (8) Dehydration Is this a current diagnosis for this admission?: Yes Plan: Patient on IV fluids (9) Physical deconditioning Is this a current diagnosis for this admission?: Yes (10) Metastatic malignant neoplasm to prostate Is this a current diagnosis for this admission?: Yes - Plan Summary Plan Summary: Patient is a candidate for hospice in my opinion.
[2018-07-25] MEDS: BUSPIRONE HCL 10 MG TABLET PO SCH ×2 (10:53→17:50)
[2018-07-25] MEDS: VALPROATE SODIUM SYRUP 250 MG/5 ML UDCUP PO SCH ×4 (10:54→21:49)
[2018-07-25] MEDS: APIXABAN 2.5 MG TABLET PO SCH ×2 (10:55→17:54)
[2018-07-25] MEDS: FERROUS SULFATE LIQUID 300 MG/5 ML UDC PO SCH ×3 (10:55→17:55)
[2018-07-25] MEDS: LEVETIRACETAM ORAL SOLN 500 MG/5 ML UDCUP PO SCH ×2 (10:57→21:49)
[2018-07-25] MEDS: POTASSIUM CHLORIDE 20 MEQ/15 ML UDCUP PO SCH (10:57)
[2018-07-25] MEDS: MEGESTROL ACETATE SUSP 400 MG/10 ML UDCUP PO SCH (10:57)
[2018-07-25] MEDS: CHOLECALCIFEROL (D3) 1,000 UNIT TABLET PO SCH (10:58)
[2018-07-25] MEDS: CALCIUM CARBONATE 500 MG TABLET PO SCH ×3 (10:58→17:55)
[2018-07-25] MEDS: NORMAL SALINE 10 ML SDV (SCHEDULED) IV SCH ×2 (10:58→21:50)
[2018-07-25 15:22] LABS: HEMATOCRIT 26.1 % (37.9-51.0); HEMOGLOBIN 8.9 g/dL (13.5-17.0); MEAN CORPUSCULAR HEMOGLOBIN 26.3 pg (27.0-33.4); MEAN CORPUSCULAR HGB CONC 33.9 g/dL (32.0-36.0); MEAN CORPUSCULAR VOLUME 78 fl (80-97); PLATELET COUNT 141 10^3/uL (150-450); RED BLOOD COUNT 3.37 10^6/uL (4.35-5.55); RED CELL DISTRIBUTION WIDTH 20.3 % (11.5-14.0); WHITE BLOOD COUNT 10.9 10^3/uL (4.0-10.5)
[2018-07-25 15:39] LABS: ALANINE AMINOTRANSFERASE 35 U/L (21-72); ALBUMIN 2.1 g/dL (3.5-5.0); ALKALINE PHOSPHATASE 606 U/L (38-126); ANION GAP 9 (5-19); ASPARTATE AMINO TRANSFERASE 141 U/L (17-59); BILIRUBIN,DIRECT 0.6 mg/dL (0.0-0.4); BILIRUBIN,TOTAL 0.7 mg/dL (0.2-1.3); BLOOD UREA NITROGEN 28 mg/dL (7-20); CARBON DIOXIDE 16 mmol/L (22-30); CHLORIDE 115 mmol/L (98-107); GLUCOSE 144 mg/dL (75-110); POTASSIUM 3.5 mmol/L (3.6-5.0); SODIUM 139.6 mmol/L (137-145); TOTAL PROTEIN 4.7 g/dL (6.3-8.2)
[2018-07-25 16:06] LABS: CALCIUM 6.1 mg/dL (8.4-10.2)
[2018-07-25] MEDS: NORMAL SALINE 1000 ML 1,000 ML IV PRN (17:48)
[2018-07-25] MEDS: ATORVASTATIN CALCIUM 10 MG TABLET PO SCH (21:49)
[2018-07-25] MEDS: TAMSULOSIN HCL 0.4 MG CAP.SR.24H PO SCH (21:49)
[2018-07-25] MEDS: HALOPERIDOL LACTATE INJ 5 MG/1 ML VIAL IM PRN (23:30)
[2018-07-26] MEDS: DILTIAZEM HCL 30 MG TABLET PO SCH ×4 (00:17→19:00)
[2018-07-26] MEDS: NORMAL SALINE 1000 ML 1,000 ML IV PRN ×2 (06:37→14:35)
--- NOTE | 2018-07-26 08:29 | PDOC PROGRESS REPORT ---
Subjective Progress Note for:: 07/26/18 Subjective:: The patient is slightly more awake. He is still lethargic. He still has IV fluids. He is still not eating much. His blood pressure is well controlled. He is not appropriate for hospice and has. We will discussed with the daughter about returning back to [facility] Reason For Visit: HYPOCALCEMIA, VIT D DEF, MALNUTRITION ACIDOSIS Physical Exam Vital Signs: Temp Pulse Resp BP Pulse Ox 97.8 F 109 H 18 126/57 H 100 07/26/18 07:27 07/26/18 07:27 07/26/18 07:27 07/26/18 07:27 07/26/18 07:27 Intake & Output 07/25/18 07/26/18 07/27/18 06:59 06:59 06:59 Intake Total 1800 2642 Output Total 1502 800 Balance 298 1842 Weight 61.2 kg 65.3 kg General appearance: PRESENT: mild distress Head exam: PRESENT: atraumatic Eye exam: PRESENT: conjunctiva pink Neck exam: PRESENT: carotid bruit. ABSENT: JVD Respiratory exam: PRESENT: crackles Cardiovascular exam: PRESENT: irregular rhythm, +S1, +S2 GI/Abdominal exam: PRESENT: normal bowel sounds, soft Extremities exam: PRESENT: tenderness. ABSENT: full ROM Musculoskeletal exam: PRESENT: tenderness. ABSENT: ambulatory Psychiatric exam: PRESENT: flat affect Results Laboratory Results: 07/25/18 15:05 07/25/18 15:05 07/25/18 07/25/18 07/25/18 15:05 15:05 17:40 WBC 10.9 H RBC 3.37 L Hgb 8.9 L Hct 26.1 L MCV 78 L MCH 26.3 L MCHC 33.9 RDW 20.3 H Plt Count 141 L Sodium 139.6 Potassium 3.5 L Chloride 115 H Carbon Dioxide 16 L Anion Gap 9 BUN 28 H Creatinine 1.01 Est GFR ( Amer) > 60 Est GFR (Non-Af Amer) > 60 Glucose 144 H Calcium 6.1 L* Ionized Calcium Rohan 1.00 L Total Bilirubin 0.7 AST 141 H ALT 35 Alkaline Phosphatase 606 H Total Protein 4.7 L Albumin 2.1 L 07/23/18 16:45 Stool - Stool - Final 07/23/18 16:45 Stool - Stool Stool Culture - Final Staphylococcus Aureus 12/04/2707/18/18 07/18/18 16:45 16:45 23:10 Creatine Kinase 728 H 706 H CK-MB (CK-2) 0.77 Troponin I 0.015 07/18/18 07/19/18 07/19/18 23:10 03:39 03:39 Creatine Kinase 756 H CK-MB (CK-2) 0.64 0.59 Troponin I 0.018 0.019 Impressions: Sacrum and Coccyx X-Ray 07/16/18 20:24 IMPRESSION: No fracture. copyright 2011 [employer]- All Rights Reserved Chest X-Ray 07/18/18 00:00 IMPRESSION: Vascular congestion. Increasing basilar opacities and pleural effusions. Guidance Fluoroscopy 07/22/18 00:00 IMPRESSION: SUCCESSFUL PLACEMENT OF A 5 FR DUAL LUMEN 41 CM PICC IN THE RIGHT BASILIC VEIN. Interventional Vascular Procedure 07/22/18 00:00 IMPRESSION: SUCCESSFUL PLACEMENT OF A 5 FR DUAL LUMEN 41 CM PICC IN THE RIGHT BASILIC VEIN. PICC Line Insertion 07/22/18 00:00 IMPRESSION: SUCCESSFUL PLACEMENT OF A 5 FR DUAL LUMEN 41 CM PICC IN THE RIGHT BASILIC VEIN. Head CT 07/24/18 00:00 IMPRESSION: NORMAL BRAIN CT WITHOUT CONTRAST. EVIDENCE OF ACUTE STROKE: NO. Assessment & Plan - Diagnosis (1) Atrial fibrillation Qualifiers: Atrial fibrillation type: chronic Qualified Code(s): I48.2 - Chronic atrial fibrillation Is this a current diagnosis for this admission?: Yes Plan: Recurrent episodes of fast A. fib. Will reconsult with cardiology and add a small dose of calcium channel block (2) Decubitus ulcer of sacral region, stage 1 Is this a current diagnosis for this admission?: Yes Plan: Improving and being treated by nursing staff (3) Failure to thrive Is this a current diagnosis for this admission?: Yes Plan: Not much change. Probably related to dementia (4) Hypocalcemia Is this a current diagnosis for this admission?: Yes Plan: Most probably a combination of severe vitamin D deficiency and hyperparathyroid. (5) Anemia, chronic disease Is this a current diagnosis for this admission?: Yes (6) CKD (chronic kidney disease) stage 3, GFR 30-59 ml/min Is this a current diagnosis for this admission?: Yes Plan: Will use some hydration and insert a Steve for strict JOHN's (7) Metastatic malignant neoplasm to prostate Is this a current diagnosis for this admission?: Yes (8) Dementia Is this a current diagnosis for this admission?: Yes Plan: Severe with worsening episodes while in the hospital and owning. (9) Acute psychosis Is this a current diagnosis for this admission?: Yes (10) Memory loss, short term Is this a current diagnosis for this admission?: Yes Plan: Continue supportive treatment (11) Vitamin D deficiency Is this a current diagnosis for this admission?: Yes Plan: Most probably related to hypocalcemia. We will add vitamin D
[2018-07-26] MEDS: FERROUS SULFATE LIQUID 300 MG/5 ML UDC PO SCH (11:08)
[2018-07-26] MEDS: VALPROATE SODIUM SYRUP 250 MG/5 ML UDCUP PO SCH ×4 (11:09→22:38)
[2018-07-26] MEDS: GLIMEPIRIDE 1 MG TABLET PO SCH (11:10)
[2018-07-26] MEDS: CHOLECALCIFEROL (D3) 1,000 UNIT TABLET PO SCH (11:11)
[2018-07-26] MEDS: CALCIUM CARBONATE 500 MG TABLET PO SCH ×3 (11:11→19:03)
[2018-07-26] MEDS: LEVETIRACETAM ORAL SOLN 500 MG/5 ML UDCUP PO SCH ×2 (11:12→22:38)
[2018-07-26] MEDS: MEGESTROL ACETATE SUSP 400 MG/10 ML UDCUP PO SCH (11:12)
[2018-07-26] MEDS: BUSPIRONE HCL 10 MG TABLET PO SCH ×2 (11:17→19:00)
[2018-07-26] MEDS: POTASSIUM CHLORIDE 20 MEQ/15 ML UDCUP PO SCH (11:19)
[2018-07-26] MEDS: NORMAL SALINE 10 ML SDV (SCHEDULED) IV SCH ×2 (11:19→22:42)
[2018-07-26] MEDS: APIXABAN 2.5 MG TABLET PO SCH ×2 (11:20→19:01)
--- NOTE | 2018-07-26 12:02 | PDOC PROGRESS REPORT ---
Subjective Progress Note for:: 07/26/18 Reason For Visit: Patient notes reviewed since admission. Patient still continues to be having altered mental status and has not reached his baseline levels. He is unaware of his present situations. Complains he is constipated but apparently he has been having diarrhea couple of days according to the treating nurse. Patient denies any history of headaches, chest pain or shortness of breath. No abdominal pains. Eating is variable. He is in restraints because he has been trying to pull out his IV lines. Patient continues to holler intermittently for no definite reasons asking for help. Labs and medications were reviewed. Discussions were done with Les Milian MD. Physical Exam Vital Signs: Temp Pulse Resp BP Pulse Ox 97.8 F 109 H 18 126/57 H 100 07/26/18 07:27 07/26/18 07:27 07/26/18 07:27 07/26/18 07:27 07/26/18 07:27 Intake & Output 07/25/18 07/26/18 07/27/18 06:59 06:59 06:59 Intake Total 1800 2642 Output Total 1502 800 Balance 298 1842 Weight 61.2 kg 65.3 kg General appearance: PRESENT: no acute distress Mouth exam: PRESENT: neck supple. ABSENT: moist Neck exam: ABSENT: lymphadenopathy, meningismus, tenderness, thyromegaly, tracheal deviation Respiratory exam: PRESENT: clear to auscultation yuliya. ABSENT: crackles Cardiovascular exam: PRESENT: irregular rhythm, +S1, +S2 GI/Abdominal exam: PRESENT: normal bowel sounds, soft. ABSENT: firm, guarding, organomegaly, tenderness Extremities exam: PRESENT: pedal edema. ABSENT: calf tenderness, clubbing Neurological exam: PRESENT: altered, oriented to person. ABSENT: oriented to place, oriented to time, oriented to situation Psychiatric exam: PRESENT: agitated, anxious, depressed Skin exam: ABSENT: erythema, mottled, rash Results Laboratory Results: 07/25/18 15:05 07/25/18 15:05 07/25/18 07/25/18 07/25/18 15:05 15:05 17:40 WBC 10.9 H RBC 3.37 L Hgb 8.9 L Hct 26.1 L MCV 78 L MCH 26.3 L MCHC 33.9 RDW 20.3 H Plt Count 141 L Sodium 139.6 Potassium 3.5 L Chloride 115 H Carbon Dioxide 16 L Anion Gap 9 BUN 28 H Creatinine 1.01 Est GFR ( Amer) > 60 Est GFR (Non-Af Amer) > 60 Glucose 144 H Calcium 6.1 L* Ionized Calcium Rohan 1.00 L Total Bilirubin 0.7 AST 141 H ALT 35 Alkaline Phosphatase 606 H Total Protein 4.7 L Albumin 2.1 L 07/23/18 16:45 Stool - Stool - Final 07/23/18 16:45 Stool - Stool Stool Culture - Final Staphylococcus Aureus 07/18/18 07/18/18 07/18/18 16:45 16:45 23:10 Creatine Kinase 728 H 706 H CK-MB (CK-2) 0.77 Troponin I 0.015 07/18/18 07/19/18 07/19/18 23:10 03:39 03:39 Creatine Kinase 756 H CK-MB (CK-2) 0.64 0.59 Troponin I 0.018 0.019 Impressions: Sacrum and Coccyx X-Ray 07/16/18 20:24 IMPRESSION: No fracture. copyright 2011 [employer]- All Rights Reserved Chest X-Ray 07/18/18 00:00 IMPRESSION: Vascular congestion. Increasing basilar opacities and pleural effusions. Guidance Fluoroscopy 07/22/18 00:00 IMPRESSION: SUCCESSFUL PLACEMENT OF A 5 FR DUAL LUMEN 41 CM PICC IN THE RIGHT BASILIC VEIN. Interventional Vascular Procedure 07/22/18 00:00 IMPRESSION: SUCCESSFUL PLACEMENT OF A 5 FR DUAL LUMEN 41 CM PICC IN THE RIGHT BASILIC VEIN. PICC Line Insertion 07/22/18 00:00 IMPRESSION: SUCCESSFUL PLACEMENT OF A 5 FR DUAL LUMEN 41 CM PICC IN THE RIGHT BASILIC VEIN. Head CT 07/24/18 00:00 IMPRESSION: NORMAL BRAIN CT WITHOUT CONTRAST. EVIDENCE OF ACUTE STROKE: NO. Assessment & Plan - Diagnosis (1) Hypocalcemia Is this a current diagnosis for this admission?: Yes Plan: Still undercorrected.His vitamin D2 is low but he is on D 3. Therefore we will stop the D3 that he is on now and start him on the D2 q. weekly. Add calcitriol. Start IV calcium infusions every 8 hours. Monitor closely. (2) Congestive heart failure Qualifiers: Heart failure type: unspecified Heart failure chronicity: chronic Qualified Code(s): I50.9 - Heart failure, unspecified Is this a current diagnosis for this admission?: Yes Plan: Presently stable. A. fib rate controlled. Monitor. (3) Failure to thrive Is this a current diagnosis for this admission?: Yes Plan: He is got a combination of factors including his encephalopathy, anxiety/ depression and obvious cancer leading him to poor intake and failure to thrive. He has been begun on antianxiety and antidepressants. See how they would help him once his metabolic factors are corrected. (4) Iron deficiency anemia Is this a current diagnosis for this admission?: Yes Plan: I am going to stop his p.o. iron which I think is giving him GI upsets. I would rather give him IV iron infusions of blood transfusions on a case by case basis. Will monitor. (5) Metabolic acidosis Is this a current diagnosis for this admission?: Yes Plan: The background of respiratory alkalosis from possible hypoventilation from various reasons. Will monitor. And will not be too vigorous in correcting this metabolic acidosis which is secondary rather than primary. (6) Metastatic malignant neoplasm to prostate Is this a current diagnosis for this admission?: Yes Plan: As per Les Milian MD and heme oncology. (7) Vitamin D deficiency Is this a current diagnosis for this admission?: Yes Plan: As mentioned earlier. Currently measures are being instituted. Will follow. (8) Abnormal LFTs Is this a current diagnosis for this admission?: Yes Plan: From liver and bony metastasis. (9) Acute on chronic kidney failure Qualifiers: Chronic kidney disease stage: stage 3 (moderate) Plan: Presently stable. Nonoliguric. Continue present lines of management. (10) Acute psychosis Is this a current diagnosis for this admission?: Yes Plan: Multiple factors but apparently getting better. Monitor. (11) CKD (chronic kidney disease) stage 3, GFR 30-59 ml/min Is this a current diagnosis for this admission?: Yes Plan: Stable. Monitor. Avoid nephrotoxic drugs. Maintain hydration. (12) Dehydration Is this a current diagnosis for this admission?: Yes Plan: On IV fluids. Will monitor. Poor p.o. intake unfortunately. (13) Diabetes Qualifiers: Diabetes mellitus type: type 2 Chronic kidney disease stage: stage 3 ( moderate) Plan: As per Les Milian MD. (14) Hypernatremia Plan: Presently stable on current management. Monitor. (15) Hypertension Qualifiers: Hypertension type: unspecified Qualified Code(s): I10 - Essential (primary ) hypertension Plan: controlled. Monitor (16) Hypokalemia Plan: Adjust replacements and monitor. (17) Malnutrition Qualifiers: Malnutrition type: protein-calorie malnutrition Protein-calorie malnutrition severity: moderate Qualified Code(s): E44.0 - Moderate protein- calorie malnutrition Is this a current diagnosis for this admission?: Yes Plan: From poor oral intake. If he continues to have poor oral intake one may have to consider IV parenteral infusions. (18) Physical deconditioning Is this a current diagnosis for this admission?: Yes Plan: Once he gets over his encephalopathy he would need to have ongoing rehab based on his overall prognosis. (19) Atrial fibrillation Qualifiers: Atrial fibrillation type: chronic Qualified Code(s): I48.2 - Chronic atrial fibrillation Is this a current diagnosis for this admission?: Yes Plan: Rate controlled. (20) Decubitus ulcer of sacral region, stage 1 Is this a current diagnosis for this admission?: Yes
[2018-07-26] MEDS ORDERED: ERGOCALCIFEROL (VITAMIN D2) 50000 UNIT (1.25 MG) CAPSULE PO SCH (14:00)
[2018-07-26] MEDS ORDERED: CALCIUM GLUCONATE 1,000 MG in DEXTROSE 5%-WATER 50 ML IV SCH (14:00)
[2018-07-26] MEDS: CALCIUM GLUCONATE 1000 MG/10 ML INJ IV SCH ×2 (14:46→22:33)
[2018-07-26] MEDS: ATORVASTATIN CALCIUM 10 MG TABLET PO SCH (22:39)
[2018-07-26] MEDS: TAMSULOSIN HCL 0.4 MG CAP.SR.24H PO SCH (22:39)
[2018-07-26] MEDS: LATANOPROST 0.005% OPH SOLN 2.5 ML OS SCH (23:17)
[2018-07-27] MEDS: DILTIAZEM HCL 30 MG TABLET PO SCH ×4 (00:34→17:37)
[2018-07-27] MEDS: HALOPERIDOL LACTATE INJ 5 MG/1 ML VIAL IM PRN (01:41)
[2018-07-27] MEDS: CALCIUM GLUCONATE 1000 MG/10 ML INJ IV SCH ×3 (06:08→21:21)
--- NOTE | 2018-07-27 08:02 | PDOC PROGRESS REPORT ---
Subjective Progress Note for:: 07/27/18 Subjective:: The patient is more lethargic this morning. He has been receiving calcium infusions. As we discussed with nephrology will try to re-correct his calcium and other electrolytes. He had a run of V. tach this morning. Will recheck the magnesium and do a magnesium infusion. The patient is more lethargic and more confused this morning. Will reconsult psychiatry Reason For Visit: HYPOCALCEMIA, VIT D DEF, MALNUTRITION ACIDOSIS Physical Exam Vital Signs: Temp Pulse Resp BP Pulse Ox 98.1 F 104 H 16 112/63 99 07/27/18 03:00 07/27/18 03:00 07/27/18 03:00 07/27/18 03:00 07/27/18 03:00 Intake & Output 07/26/18 07/27/18 07/28/18 06:59 06:59 06:59 Intake Total 2642 1277 Output Total 800 700 Balance 1842 577 Weight 65.3 kg 67.8 kg General appearance: PRESENT: severe distress Eye exam: PRESENT: conjunctival injection Mouth exam: PRESENT: dry mucosa Neck exam: PRESENT: carotid bruit. ABSENT: JVD Respiratory exam: PRESENT: crackles Cardiovascular exam: PRESENT: irregular rhythm, +S1, +S2 GI/Abdominal exam: PRESENT: normal bowel sounds, soft Extremities exam: PRESENT: tenderness Musculoskeletal exam: PRESENT: tenderness Psychiatric exam: PRESENT: flat affect Results Laboratory Results: 07/25/18 15:05 07/25/18 15:05 07/23/18 16:45 Stool - Stool - Final 07/23/18 16:45 Stool - Stool Stool Culture - Final Staphylococcus Aureus 07/18/18 07/18/18 07/18/18 16:45 16:45 23:10 Creatine Kinase 728 H 706 H CK-MB (CK-2) 0.77 Troponin I 0.015 07/18/18 07/19/18 07/19/18 23:10 03:39 03:39 Creatine Kinase 756 H CK-MB (CK-2) 0.64 0.59 Troponin I 0.018 0.019 Impressions: Sacrum and Coccyx X-Ray 07/16/18 20:24 IMPRESSION: No fracture. copyright 2010 [employer]- All Rights Reserved Chest X-Ray 07/18/18 00:00 IMPRESSION: Vascular congestion. Increasing basilar opacities and pleural effusions. Guidance Fluoroscopy 07/22/18 00:00 IMPRESSION: SUCCESSFUL PLACEMENT OF A 5 FR DUAL LUMEN 41 CM PICC IN THE RIGHT BASILIC VEIN. Interventional Vascular Procedure 07/22/18 00:00 IMPRESSION: SUCCESSFUL PLACEMENT OF A 5 FR DUAL LUMEN 41 CM PICC IN THE RIGHT BASILIC VEIN. PICC Line Insertion 07/22/18 00:00 IMPRESSION: SUCCESSFUL PLACEMENT OF A 5 FR DUAL LUMEN 41 CM PICC IN THE RIGHT BASILIC VEIN. Head CT 07/24/18 00:00 IMPRESSION: NORMAL BRAIN CT WITHOUT CONTRAST. EVIDENCE OF ACUTE STROKE: NO. Assessment & Plan - Diagnosis (1) Atrial fibrillation Qualifiers: Atrial fibrillation type: chronic Qualified Code(s): I48.2 - Chronic atrial fibrillation Is this a current diagnosis for this admission?: Yes Plan: A run of V. tach this morning. We will continue with Cardizem and add magnesium (2) Decubitus ulcer of sacral region, stage 1 Is this a current diagnosis for this admission?: Yes (3) Failure to thrive Is this a current diagnosis for this admission?: Yes Plan: Not much change. Probably related to dementia (4) Hypocalcemia Is this a current diagnosis for this admission?: Yes Plan: As per nephrology (5) Anemia, chronic disease Is this a current diagnosis for this admission?: Yes Plan: Improving after the transfusion of 2 units of cells (6) CKD (chronic kidney disease) stage 3, GFR 30-59 ml/min Is this a current diagnosis for this admission?: Yes Plan: Will use some hydration and insert a Steve for strict JOHN's (7) Metastatic malignant neoplasm to prostate Is this a current diagnosis for this admission?: Yes Plan: We will reconsult hematology oncology (8) Dementia Is this a current diagnosis for this admission?: Yes Plan: We will reconsult psychiatry (9) Acute psychosis Is this a current diagnosis for this admission?: Yes (10) Memory loss, short term Is this a current diagnosis for this admission?: Yes (11) Vitamin D deficiency Is this a current diagnosis for this admission?: Yes Plan: Most probably related to hypocalcemia. We will add vitamin D
[2018-07-27] MEDS: GLIMEPIRIDE 1 MG TABLET PO SCH (08:56)
[2018-07-27] MEDS: MAGNESIUM SULFATE/D5W 1 GM/100 ML RTUPB IV SCH ×3 (08:56→11:11)
[2018-07-27] MEDS: POTASSIUM CHLORIDE 20 MEQ/15 ML UDCUP PO SCH (11:09)
[2018-07-27] MEDS: CALCITRIOL 0.25 MCG CAPSULE PO SCH (11:10)
[2018-07-27] MEDS: BUSPIRONE HCL 10 MG TABLET PO SCH ×2 (11:11→17:37)
[2018-07-27] MEDS: CALCIUM CARBONATE 500 MG TABLET PO SCH ×3 (11:11→17:39)
[2018-07-27] MEDS: APIXABAN 2.5 MG TABLET PO SCH ×2 (11:12→17:37)
[2018-07-27] MEDS: NORMAL SALINE 10 ML SDV (SCHEDULED) IV SCH ×2 (11:14→21:26)
[2018-07-27] MEDS: LEVETIRACETAM ORAL SOLN 500 MG/5 ML UDCUP PO SCH ×2 (11:14→21:22)
[2018-07-27] MEDS: MEGESTROL ACETATE SUSP 400 MG/10 ML UDCUP PO SCH (11:14)
[2018-07-27] MEDS: VALPROATE SODIUM SYRUP 250 MG/5 ML UDCUP PO SCH ×4 (11:15→21:23)
[2018-07-27 17:27] LABS: HEMATOCRIT 27.1 % (37.9-51.0); MEAN CORPUSCULAR HGB CONC 33.1 g/dL (32.0-36.0); MEAN CORPUSCULAR VOLUME 78 fl (80-97); PLATELET COUNT 160 10^3/uL (150-450); RED BLOOD COUNT 3.46 10^6/uL (4.35-5.55); RED CELL DISTRIBUTION WIDTH 20.5 % (11.5-14.0); WHITE BLOOD COUNT 14.7 10^3/uL (4.0-10.5)
[2018-07-27 17:41] LABS: ABSOLUTE LYMPHOCYTES# (MANUAL) 3.1 10^3/uL (0.5-4.7); ABSOLUTE MONOCYTES # (MANUAL) 1.2 10^3/uL (0.1-1.4); ABSOLUTE NEUTROPHILS# (MANUAL) 10.4 10^3/uL (1.7-8.2); ALANINE AMINOTRANSFERASE 40 U/L (21-72); ALBUMIN 2.3 g/dL (3.5-5.0); ALKALINE PHOSPHATASE 687 U/L (38-126); ANION GAP 6 (5-19); ASPARTATE AMINO TRANSFERASE 148 U/L (17-59); BAND NEUTROPHILS % (MANUAL) 3 % (3-5); BASOPHILS % (MANUAL) 0 % (0-2); BILIRUBIN,DIRECT 0.5 mg/dL (0.0-0.4); BILIRUBIN,TOTAL 0.6 mg/dL (0.2-1.3); BLOOD UREA NITROGEN 19 mg/dL (7-20); CALCIUM 7.8 mg/dL (8.4-10.2); CARBON DIOXIDE 17 mmol/L (22-30); CHLORIDE 120 mmol/L (98-107); EOSINOPHILS % (MANUAL) 0 % (0-6); GLUCOSE 150 mg/dL (75-110); LYMPHOCYTES % (MANUAL) 21 % (13-45); MONOCYTES % (MANUAL) 8 % (3-13); POTASSIUM 3.6 mmol/L (3.6-5.0); SEGMENTED NEUTROPHILS % (MAN) 68 % (42-78); SODIUM 142.7 mmol/L (137-145); TOTAL CELLS COUNTED 100; TOTAL PROTEIN 5.1 g/dL (6.3-8.2)
[2018-07-27 17:43] LABS: ANISOCYTOSIS 2+; HYPOCHROMASIA SLIGHT; PLATELET COMMENT ADEQUATE; POIKILOCYTOSIS SLIGHT; TOXIC GRANULATION SLIGHT
--- NOTE | 2018-07-27 19:25 | PDOC PROGRESS REPORT ---
Subjective Progress Note for:: 07/27/18 Subjective:: Patient was seen today sitting up in his bed. According to his nurse in charge of his care he has become more lethargic today. Patient was able to open his eyes but appeared to fall right back to sleep while talking to him. Reason For Visit: HYPOCALCEMIA, VIT D DEF, MALNUTRITION ACIDOSIS Physical Exam Vital Signs: Temp Pulse Resp BP Pulse Ox 97.8 F 92 12 126/47 H 98 07/27/18 15:49 07/27/18 15:49 07/27/18 15:49 07/27/18 15:49 07/27/18 15:49 Intake & Output 07/26/18 07/27/18 07/28/18 06:59 06:59 06:59 Intake Total 2642 2277 518 Output Total 800 700 Balance 1842 1577 518 Weight 65.3 kg 67.8 kg General appearance: PRESENT: no acute distress. ABSENT: well-developed, well- nourished Head exam: PRESENT: normocephalic Mouth exam: PRESENT: moist, neck supple. ABSENT: dry mucosa Neck exam: ABSENT: JVD, tracheal deviation Respiratory exam: PRESENT: crackles, rales. ABSENT: accessory muscle use, clear to auscultation yuliya, rhonchi, wheezes Cardiovascular exam: PRESENT: irregular rhythm, +S1, +S2 GI/Abdominal exam: PRESENT: normal bowel sounds, soft. ABSENT: firm, guarding, organomegaly, tenderness Extremities exam: PRESENT: pedal edema, +2 edema. ABSENT: tenderness Musculoskeletal exam: ABSENT: normal inspection, tenderness Neurological exam: PRESENT: altered, other - lethargic. ABSENT: awake, oriented to person, oriented to place, oriented to time, oriented to situation Psychiatric exam: ABSENT: appropriate affect, normal mood Skin exam: PRESENT: dry, intact, warm. ABSENT: cyanosis Results Laboratory Results: 07/27/18 17:14 07/27/18 17:14 07/27/18 07/27/18 07/27/18 17:14 17:14 17:14 WBC 14.7 H RBC 3.46 L Hgb 9.0 L Hct 27.1 L MCV 78 L MCH 26.0 L MCHC 33.1 RDW 20.5 H Plt Count 160 Seg Neutrophils % Not Reportable Lymphocytes % Not Reportable Monocytes % Not Reportable Eosinophils % Not Reportable Basophils % Not Reportable Absolute Neutrophils Not Reportable Absolute Lymphocytes Not Reportable Absolute Monocytes Not Reportable Absolute Eosinophils Not Reportable Absolute Basophils Not Reportable Sodium 142.7 Potassium 3.6 Chloride 120 H Carbon Dioxide 17 L Anion Gap 6 BUN 19 Creatinine 0.78 Est GFR ( Amer) > 60 Est GFR (Non-Af Amer) > 60 Glucose 150 H Calcium 7.8 L Magnesium 2.0 Total Bilirubin 0.6 AST 148 H ALT 40 Alkaline Phosphatase 687 H Ammonia Total Protein 5.1 L Albumin 2.3 L TSH 2.77 07/27/18 17:14 WBC RBC Hgb Hct MCV MCH MCHC RDW Plt Count Seg Neutrophils % Lymphocytes % Monocytes % Eosinophils % Basophils % Absolute Neutrophils Absolute Lymphocytes Absolute Monocytes Absolute Eosinophils Absolute Basophils Sodium Potassium Chloride Carbon Dioxide Anion Gap BUN Creatinine Est GFR ( Amer) Est GFR (Non-Af Amer) Glucose Calcium Magnesium Total Bilirubin AST ALT Alkaline Phosphatase Ammonia 50.6 H Total Protein Albumin TSH 07/23/18 16:45 Stool - Stool - Final 07/23/18 16:45 Stool - Stool Stool Culture - Final 07/18/18 07/18/18 07/18/18 16:45 16:45 23:10 Creatine Kinase 728 H 706 H CK-MB (CK-2) 0.77 Troponin I 0.015 07/18/18 07/19/18 07/19/18 23:10 03:39 03:39 Creatine Kinase 756 H CK-MB (CK-2) 0.64 0.59 Troponin I 0.018 0.019 Impressions: Sacrum and Coccyx X-Ray 07/16/18 20:24 IMPRESSION: No fracture. copyright 2011 [employer]- All Rights Reserved Chest X-Ray 07/18/18 00:00 IMPRESSION: Vascular congestion. Increasing basilar opacities and pleural effusions. Guidance Fluoroscopy 07/22/18 00:00 IMPRESSION: SUCCESSFUL PLACEMENT OF A 5 FR DUAL LUMEN 41 CM PICC IN THE RIGHT BASILIC VEIN. Interventional Vascular Procedure 07/22/18 00:00 IMPRESSION: SUCCESSFUL PLACEMENT OF A 5 FR DUAL LUMEN 41 CM PICC IN THE RIGHT BASILIC VEIN. PICC Line Insertion 07/22/18 00:00 IMPRESSION: SUCCESSFUL PLACEMENT OF A 5 FR DUAL LUMEN 41 CM PICC IN THE RIGHT BASILIC VEIN. Head CT 07/24/18 00:00 IMPRESSION: NORMAL BRAIN CT WITHOUT CONTRAST. EVIDENCE OF ACUTE STROKE: NO. Assessment & Plan - Diagnosis (1) Hypocalcemia Is this a current diagnosis for this admission?: Yes Plan: looks to have greatly improved, continue PO calcium, IV calcium and vitamin D. (2) Altered mental status Qualifiers: Altered mental status type: delirium Qualified Code(s): R41.0 - Disorientation, unspecified Is this a current diagnosis for this admission?: Yes Plan: ordered an ammonia that came back elevated at 50. Will look to start lactulose qd until the patient has 3 bowel movements a day. (3) Congestive heart failure Qualifiers: Heart failure type: unspecified Heart failure chronicity: chronic Qual ified Code(s): I50.9 - Heart failure, unspecified Is this a current diagnosis for this admission?: Yes Plan: will look to hold normal saline for now due to the patient looking fluid overloaded. Will not look to start diuretics since the patient does not consume fluid on his own. (4) Metastatic malignant neoplasm to prostate Is this a current diagnosis for this admission?: Yes Plan: per primary (5) Vitamin D deficiency Is this a current diagnosis for this admission?: Yes Plan: on vitamin D2 and calcitriol (6) Anemia, chronic disease Is this a current diagnosis for this admission?: Yes (7) CKD (chronic kidney disease) stage 3, GFR 30-59 ml/min Is this a current diagnosis for this admission?: Yes Plan: stable but appears fluid overloaded, will stop IV NS (8) Atrial fibrillation Qualifiers: Atrial fibrillation type: chronic Qualified Code(s): I48.2 - Chronic atrial fibrillation Is this a current diagnosis for this admission?: Yes (9) Failure to thrive Is this a current diagnosis for this admission?: Yes Plan: on megace, still not eating much. He may need to try other routes for nutrition. (10) Decubitus ulcer of sacral region, stage 1 Is this a current diagnosis for this admission?: Yes (11) Hyperparathyroidism Is this a current diagnosis for this admission?: Yes Plan: on calcitriol
[2018-07-27] MEDS: ATORVASTATIN CALCIUM 10 MG TABLET PO SCH (21:25)
[2018-07-27] MEDS: TAMSULOSIN HCL 0.4 MG CAP.SR.24H PO SCH (21:25)
[2018-07-27] MEDS: LATANOPROST 0.005% OPH SOLN 2.5 ML OS SCH (21:28)
[2018-07-27] MEDS ORDERED: LACTULOSE SYRUP 20 GM/30 ML UDCUP PO SCH (22:00)
[2018-07-28] MEDS: DILTIAZEM HCL 30 MG TABLET PO SCH ×4 (00:59→19:48)
[2018-07-28] MEDS: CALCIUM GLUCONATE 1000 MG/10 ML INJ IV SCH (06:36)
[2018-07-28 07:00] LABS: HEMATOCRIT 27.2 % (37.9-51.0); HEMOGLOBIN 8.8 g/dL (13.5-17.0); MEAN CORPUSCULAR HEMOGLOBIN 25.3 pg (27.0-33.4); MEAN CORPUSCULAR HGB CONC 32.6 g/dL (32.0-36.0); MEAN CORPUSCULAR VOLUME 78 fl (80-97); PLATELET COUNT 161 10^3/uL (150-450); RED CELL DISTRIBUTION WIDTH 20.6 % (11.5-14.0)
[2018-07-28 07:07] LABS: ANION GAP 8 (5-19)
[2018-07-28 07:15] LABS: ALANINE AMINOTRANSFERASE 34 U/L (21-72); ALBUMIN 2.2 g/dL (3.5-5.0); ALKALINE PHOSPHATASE 649 U/L (38-126); ASPARTATE AMINO TRANSFERASE 139 U/L (17-59); BILIRUBIN,DIRECT 0.7 mg/dL (0.0-0.4); BILIRUBIN,TOTAL 0.8 mg/dL (0.2-1.3); BLOOD UREA NITROGEN 18 mg/dL (7-20); CALCIUM 7.7 mg/dL (8.4-10.2); CARBON DIOXIDE 17 mmol/L (22-30); CHLORIDE 120 mmol/L (98-107); GLUCOSE 139 mg/dL (75-110); POTASSIUM 3.7 mmol/L (3.6-5.0); SODIUM 145.1 mmol/L (137-145)
[2018-07-28 08:29] LABS: ABSOLUTE LYMPHOCYTES# (MANUAL) 0.9 10^3/uL (0.5-4.7); ABSOLUTE MONOCYTES # (MANUAL) 0.6 10^3/uL (0.1-1.4); ABSOLUTE NEUTROPHILS# (MANUAL) 13.5 10^3/uL (1.7-8.2); ANISOCYTOSIS 1+; BAND NEUTROPHILS % (MANUAL) 5 % (3-5); BASOPHILS % (MANUAL) 0 % (0-2); EOSINOPHILS % (MANUAL) 0 % (0-6); HYPOCHROMASIA 2+; LYMPHOCYTES % (MANUAL) 6 % (13-45); METAMYELOCYTES % (MANUAL) 1 % (0); MONOCYTES % (MANUAL) 4 % (3-13); POIKILOCYTOSIS 1+; SEGMENTED NEUTROPHILS % (MAN) 84 % (42-78); TOTAL CELLS COUNTED 100
[2018-07-28 08:30] LABS: OVALOCYTES SLIGHT; PLATELET COMMENT ADEQUATE; TARGET CELLS SLIGHT; TEAR DROP CELLS SLIGHT
--- NOTE | 2018-07-28 08:52 | PDOC PROGRESS REPORT ---
Subjective Progress Note for:: 07/28/18 Subjective:: The patient is slightly more alert this morning. He recognizes who I am but upon questioning he states that the president is MARGARITA Ponce. Medications reviewed. His ammonia level is elevated which might be part of the confusion Reason For Visit: HYPOCALCEMIA, VIT D DEF, MALNUTRITION ACIDOSIS Physical Exam Vital Signs: Temp Pulse Resp BP Pulse Ox 98.6 F 119 H 22 H 135/64 H 100 07/28/18 07:37 07/28/18 07:37 07/28/18 07:37 07/28/18 03:00 07/28/18 07:37 Intake & Output 07/27/18 07/28/18 07/29/18 06:59 06:59 06:59 Intake Total 2277 618 Output Total 700 350 Balance 1577 268 Weight 67.8 kg 63.8 kg General appearance: PRESENT: mild distress Head exam: PRESENT: atraumatic Eye exam: PRESENT: conjunctival injection Neck exam: PRESENT: carotid bruit. ABSENT: JVD Respiratory exam: PRESENT: crackles Cardiovascular exam: PRESENT: irregular rhythm, +S1, +S2 GI/Abdominal exam: PRESENT: normal bowel sounds, soft Extremities exam: PRESENT: pedal edema, tenderness Musculoskeletal exam: PRESENT: tenderness Neurological exam: PRESENT: awake Psychiatric exam: PRESENT: anxious, flat affect Results Laboratory Results: 07/28/18 06:05 07/28/18 06:05 07/27/18 07/27/18 07/27/18 17:14 17:14 17:14 WBC 14.7 H RBC 3.46 L Hgb 9.0 L Hct 27.1 L MCV 78 L MCH 26.0 L MCHC 33.1 RDW 20.5 H Plt Count 160 Seg Neutrophils % Not Reportable Lymphocytes % Not Reportable Monocytes % Not Reportable Eosinophils % Not Reportable Basophils % Not Reportable Absolute Neutrophils Not Reportable Absolute Lymphocytes Not Reportable Absolute Monocytes Not Reportable Absolute Eosinophils Not Reportable Absolute Basophils Not Reportable Sodium 142.7 Potassium 3.6 Chloride 120 H Carbon Dioxide 17 L Anion Gap 6 BUN 19 Creatinine 0.78 Est GFR ( Amer) > 60 Est GFR (Non-Af Amer) > 60 Glucose 150 H Calcium 7.8 L Magnesium 2.0 Total Bilirubin 0.6 AST 148 H ALT 40 Alkaline Phosphatase 687 H Ammonia Total Protein 5.1 L Albumin 2.3 L TSH 2.77 07/27/18 07/28/18 07/28/18 17:14 06:05 06:05 WBC 15.0 H RBC 3.50 L Hgb 8.8 L Hct 27.2 L MCV 78 L MCH 25.3 L MCHC 32.6 RDW 20.6 H Plt Count 161 Seg Neutrophils % Not Reportable Lymphocytes % Not Reportable Monocytes % Not Reportable Eosinophils % Not Reportable Basophils % Not Reportable Absolute Neutrophils Not Reportable Absolute Lymphocytes Not Reportable Absolute Monocytes Not Reportable Absolute Eosinophils Not Reportable Absolute Basophils Not Reportable Sodium 145.1 H Potassium 3.7 Chloride 120 H Carbon Dioxide 17 L Anion Gap 8 BUN 18 Creatinine 0.82 Est GFR ( Amer) > 60 Est GFR (Non-Af Amer) > 60 Glucose 139 H Calcium 7.7 L Magnesium 2.0 Total Bilirubin 0.8 AST 139 H ALT 34 Alkaline Phosphatase 649 H Ammonia 50.6 H Total Protein 5.0 L Albumin 2.2 L TSH 07/23/18 16:45 Stool - Stool - Final 07/23/18 16:45 Stool - Stool Stool Culture - Final 07/16/18 07/18/18 07/18/18 21:35 16:45 16:45 Creatine Kinase 728 H CK-MB (CK-2) 0.77 Troponin I 0.015 NT-Pro-B Natriuret Pep 49449 H 07/18/18 07/18/18 07/19/18 23:10 23:10 03:39 Creatine Kinase 706 H 756 H CK-MB (CK-2) 0.64 Troponin I 0.018 NT-Pro-B Natriuret Pep 07/19/18 03:39 Creatine Kinase CK-MB (CK-2) 0.59 Troponin I 0.019 NT-Pro-B Natriuret Pep Impressions: Sacrum and Coccyx X-Ray 07/16/18 20:24 IMPRESSION: No fracture. copyright 2011 [employer]- All Rights Reserved Chest X-Ray 07/18/18 00:00 IMPRESSION: Vascular congestion. Increasing basilar opacities and pleural effusions. Guidance Fluoroscopy 07/22/18 00:00 IMPRESSION: SUCCESSFUL PLACEMENT OF A 5 FR DUAL LUMEN 41 CM PICC IN THE RIGHT BASILIC VEIN. Interventional Vascular Procedure 07/22/18 00:00 IMPRESSION: SUCCESSFUL PLACEMENT OF A 5 FR DUAL LUMEN 41 CM PICC IN THE RIGHT BASILIC VEIN. PICC Line Insertion 07/22/18 00:00 IMPRESSION: SUCCESSFUL PLACEMENT OF A 5 FR DUAL LUMEN 41 CM PICC IN THE RIGHT BASILIC VEIN. Head CT 07/24/18 00:00 IMPRESSION: NORMAL BRAIN CT WITHOUT CONTRAST. EVIDENCE OF ACUTE STROKE: NO. Assessment & Plan - Diagnosis (1) Atrial fibrillation Qualifiers: Atrial fibrillation type: chronic Qualified Code(s): I48.2 - Chronic atrial fibrillation Is this a current diagnosis for this admission?: Yes Plan: The Cardizem was held last night and this morning the patient is in rapid A. fib. Will increase the Cardizem to 60 mg (2) Decubitus ulcer of sacral region, stage 1 Is this a current diagnosis for this admission?: Yes Plan: Improving and being treated by nursing staff (3) Failure to thrive Is this a current diagnosis for this admission?: Yes (4) Hypocalcemia Is this a current diagnosis for this admission?: Yes Plan: Improved with intervention from nephrology. His calcium is 7.7 this morning (5) Anemia, chronic disease Is this a current diagnosis for this admission?: Yes (6) CKD (chronic kidney disease) stage 3, GFR 30-59 ml/min Is this a current diagnosis for this admission?: Yes Plan: Will use some hydration and insert a Steve for strict JOHN's (7) Metastatic malignant neoplasm to prostate Is this a current diagnosis for this admission?: Yes Plan: We will reconsult hematology oncology (8) Dementia Is this a current diagnosis for this admission?: Yes Plan: Might be worsening with increase in ammonia level. We will increase the lactulose to 3 times a day (9) Acute psychosis Is this a current diagnosis for this admission?: Yes Plan: The sun downs are getting progressively worse possibly secondary to increase in ammonia level (10) Memory loss, short term Is this a current diagnosis for this admission?: Yes (11) Vitamin D deficiency Is this a current diagnosis for this admission?: Yes Plan: Most probably related to hypocalcemia. We will add vitamin D
[2018-07-28] MEDS ORDERED: LACTULOSE SYRUP 20 GM/30 ML UDCUP PO SCH (10:00)
[2018-07-28] MEDS: BUSPIRONE HCL 10 MG TABLET PO SCH ×2 (10:23→19:50)
[2018-07-28] MEDS: LACTULOSE SYRUP 20 GM/30 ML UDCUP PO SCH ×3 (10:23→19:47)
[2018-07-28] MEDS: VALPROATE SODIUM SYRUP 250 MG/5 ML UDCUP PO SCH ×4 (10:28→21:36)
[2018-07-28] MEDS: POTASSIUM CHLORIDE 20 MEQ/15 ML UDCUP PO SCH (10:32)
[2018-07-28] MEDS: NORMAL SALINE 10 ML SDV (SCHEDULED) IV SCH ×2 (10:33→21:39)
[2018-07-28] MEDS: MEGESTROL ACETATE SUSP 400 MG/10 ML UDCUP PO SCH (10:33)
[2018-07-28] MEDS: LEVETIRACETAM ORAL SOLN 500 MG/5 ML UDCUP PO SCH ×2 (10:33→21:39)
[2018-07-28] MEDS: CALCIUM CARBONATE 500 MG TABLET PO SCH ×3 (10:35→19:50)
[2018-07-28] MEDS: CALCITRIOL 0.25 MCG CAPSULE PO SCH (10:35)
[2018-07-28] MEDS: APIXABAN 2.5 MG TABLET PO SCH ×2 (10:36→19:50)
[2018-07-28] MEDS: GLIMEPIRIDE 1 MG TABLET PO SCH (10:36)
--- NOTE | 2018-07-28 11:58 | PSYCHOLOGICAL NOTE ---
Psych Note - Psych Note Date seen by psych provider: 07/28/18 Psych Note: Reason for Consult: Medication recommendations/ Psychosis, dementia This patient was seen by the Behavioral Health Team on 07/09/2018 for similar etiology. Medication recommendation were made at that time. Head MRI 07/01/2018: Findings indicate prominence of the lateral ventricles secondary to mild cortical atrophy Medication recommendations per [facility]'s contracted psychiatrist Please discontinue Haldol Please continue Depakote 250mg twice daily Please continue Buspar 10mg twice daily Please add Rispirdone 0.25mg twice daily as needed for agitation and aggression R/O 799.59 (R41.9) unspecified neurocognitive disorder Impression\plan: Patient is cleared from acute psychiatric services. Patient is noted to have a possible diagnosis of dementia which is supported by presentation and MRI results during the patient previous visit 07/09/2018. Patient is recommended to follow-up with neurology. Prescribing physicians are asked to consider avoiding using any benzodiazepines and antipsychotics as they can increase confusion, aggression, agitation, and psychosis. Clinician notes the patient continues to present in medical crisis and an accurate capacity cannot be conducted until stabilization. Please reconsult if new concerns arise once medically stable. Dr. Spence was consulted and the care management of this patient; attending physicians in agreement with recommendations and disposition.
[2018-07-28 14:46] LABS: ARTERIAL BLOOD BASE EXCESS -6.7 mmol/L; ARTERIAL BLOOD H2CO3 0.57 mmol/L (1.05-1.35); ARTERIAL BLOOD HCO3 14.7 mmol/L (20-24); ARTERIAL BLOOD O2 SATURATION 97.1 % (94-98); ARTERIAL BLOOD PH 7.51 (7.35-7.45); ARTERIAL BLOOD PO2 80.1 mmHg (80-100); ARTERIAL BLOOD TOTAL CO2 15.3 mmol/L (23-27)
[2018-07-28 14:47] LABS: ARTERIAL BLOOD FIO2 ROOM AIR
[2018-07-28 14:50] LABS: ARTERIAL BLOOD PCO2 18.9 mmHg (35-45)
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
[2018-07-28] MEDS ORDERED: DILTIAZEM HCL 30 MG TABLET PO ONE (17:30)
[2018-07-28] MEDS: ATORVASTATIN CALCIUM 10 MG TABLET PO SCH (21:39)
[2018-07-28] MEDS: LATANOPROST 0.005% OPH SOLN 2.5 ML OS SCH (21:39)
[2018-07-28] MEDS: TAMSULOSIN HCL 0.4 MG CAP.SR.24H PO SCH (21:39)
[2018-07-29] MEDS: DILTIAZEM HCL 30 MG TABLET PO SCH ×4 (01:07→18:35)
[2018-07-29 07:17] LABS: ALANINE AMINOTRANSFERASE 33 U/L (21-72); ALBUMIN 2.2 g/dL (3.5-5.0); ALKALINE PHOSPHATASE 638 U/L (38-126); ANION GAP 8 (5-19); ASPARTATE AMINO TRANSFERASE 156 U/L (17-59); BILIRUBIN,DIRECT 0.7 mg/dL (0.0-0.4); BILIRUBIN,TOTAL 0.9 mg/dL (0.2-1.3); BLOOD UREA NITROGEN 19 mg/dL (7-20); CALCIUM 7.6 mg/dL (8.4-10.2); CARBON DIOXIDE 16 mmol/L (22-30); CHLORIDE 122 mmol/L (98-107); GLUCOSE 126 mg/dL (75-110); POTASSIUM 3.5 mmol/L (3.6-5.0); SODIUM 146.4 mmol/L (137-145)
--- NOTE | 2018-07-29 08:31 | PDOC PROGRESS REPORT ---
Subjective Progress Note for:: 07/29/18 Subjective:: The patient is lethargic but arousable. He remembers my name. He remembers his 's name. That is the only thing that he answers appropriately. He is moaning and complaining of some pain. Discussed with nursing staff about the use of some morphine. Reason For Visit: HYPOCALCEMIA, VIT D DEF, MALNUTRITION ACIDOSIS Physical Exam Vital Signs: Temp Pulse Resp BP Pulse Ox 98.4 F 81 19 109/62 100 07/29/18 03:32 07/29/18 07:00 07/29/18 03:32 07/28/18 15:00 07/29/18 03:32 Intake & Output 07/28/18 07/29/18 07/30/18 06:59 06:59 06:59 Intake Total 618 420 Output Total 350 605 Balance 268 -185 Weight 63.8 kg 86.6 kg General appearance: PRESENT: mild distress Head exam: PRESENT: atraumatic Eye exam: PRESENT: conjunctiva pink Mouth exam: PRESENT: dry mucosa Neck exam: PRESENT: carotid bruit. ABSENT: JVD Respiratory exam: PRESENT: rhonchi Cardiovascular exam: PRESENT: irregular rhythm, +S1, +S2 GI/Abdominal exam: PRESENT: normal bowel sounds, soft Extremities exam: PRESENT: pedal edema, tenderness Musculoskeletal exam: PRESENT: tenderness Neurological exam: PRESENT: awake, oriented to person Skin exam: PRESENT: skin tears Results Laboratory Results: 07/28/18 06:05 07/29/18 06:25 07/27/18 07/27/18 07/28/18 17:14 17:14 14:30 Carbonic Acid 0.57 L HCO3/H2CO3 Ratio 25:1 ABG pH 7.51 H ABG pCO2 18.9 L* ABG pO2 80.1 ABG HCO3 14.7 L ABG O2 Saturation 97.1 ABG Base Excess -6.7 FiO2 ROOM AIR Sodium 142.7 Potassium 3.6 Chloride 120 H Carbon Dioxide 17 L Anion Gap 6 BUN 19 Creatinine 0.78 Est GFR ( Amer) > 60 Est GFR (Non-Af Amer) > 60 Glucose 150 H Calcium 7.8 L Magnesium 2.0 Total Bilirubin 0.6 AST 148 H ALT 40 Alkaline Phosphatase 687 H Ammonia Total Protein 5.1 L Albumin 2.3 L TSH 2.77 07/29/18 07/29/18 06:25 07:00 Carbonic Acid HCO3/H2CO3 Ratio ABG pH ABG pCO2 ABG pO2 ABG HCO3 ABG O2 Saturation ABG Base Excess FiO2 Sodium 146.4 H Potassium 3.5 L Chloride 122 H Carbon Dioxide 16 L Anion Gap 8 BUN 19 Creatinine 0.85 Est GFR ( Amer) > 60 Est GFR (Non-Af Amer) > 60 Glucose 126 H Calcium 7.6 L Magnesium Total Bilirubin 0.9 AST 156 H ALT 33 Alkaline Phosphatase 638 H Ammonia 43.5 H Total Protein 5.0 L Albumin 2.2 L TSH 07/16/18 07/18/18 07/18/18 21:35 16:45 16:45 Creatine Kinase 728 H CK-MB (CK-2) 0.77 Troponin I 0.015 NT-Pro-B Natriuret Pep 98011 H 07/18/18 07/18/18 07/19/18 23:10 23:10 03:39 Creatine Kinase 706 H 756 H CK-MB (CK-2) 0.64 Troponin I 0.018 NT-Pro-B Natriuret Pep 07/19/18 03:39 Creatine Kinase CK-MB (CK-2) 0.59 Troponin I 0.019 NT-Pro-B Natriuret Pep Impressions: Sacrum and Coccyx X-Ray 07/16/18 20:24 IMPRESSION: No fracture. copyright 2010 [employer]- All Rights Reserved Chest X-Ray 07/18/18 00:00 IMPRESSION: Vascular congestion. Increasing basilar opacities and pleural effusions. Guidance Fluoroscopy 07/22/18 00:00 IMPRESSION: SUCCESSFUL PLACEMENT OF A 5 FR DUAL LUMEN 41 CM PICC IN THE RIGHT BASILIC VEIN. Interventional Vascular Procedure 07/22/18 00:00 IMPRESSION: SUCCESSFUL PLACEMENT OF A 5 FR DUAL LUMEN 41 CM PICC IN THE RIGHT BASILIC VEIN. PICC Line Insertion 07/22/18 00:00 IMPRESSION: SUCCESSFUL PLACEMENT OF A 5 FR DUAL LUMEN 41 CM PICC IN THE RIGHT BASILIC VEIN. Head CT 07/24/18 00:00 IMPRESSION: NORMAL BRAIN CT WITHOUT CONTRAST. EVIDENCE OF ACUTE STROKE: NO. Assessment & Plan - Diagnosis (1) Atrial fibrillation Qualifiers: Atrial fibrillation type: chronic Qualified Code(s): I48.2 - Chronic atrial fibrillation Is this a current diagnosis for this admission?: Yes Plan: The Cardizem was held last night and this morning the patient is in rapid A. f ib. Will increase the Cardizem to 60 mg (2) Decubitus ulcer of sacral region, stage 1 Is this a current diagnosis for this admission?: Yes (3) Failure to thrive Is this a current diagnosis for this admission?: Yes Plan: We will start the TPN. We do have a PICC line and it would be a good idea since the patient is not eating or drinking well by mouth (4) Hypocalcemia Is this a current diagnosis for this admission?: Yes (5) Anemia, chronic disease Is this a current diagnosis for this admission?: Yes (6) CKD (chronic kidney disease) stage 3, GFR 30-59 ml/min Is this a current diagnosis for this admission?: Yes (7) Metastatic malignant neoplasm to prostate Is this a current diagnosis for this admission?: Yes Plan: We will reconsult hematology oncology (8) Dementia Is this a current diagnosis for this admission?: Yes Plan: Might be worsening with increase in ammonia level. We will increase the lactulose to 3 times a day (9) Acute psychosis Is this a current diagnosis for this admission?: Yes (10) Memory loss, short term Is this a current diagnosis for this admission?: Yes Plan: Continue supportive treatment (11) Vitamin D deficiency Is this a current diagnosis for this admission?: Yes Plan: Most probably related to hypocalcemia. We will add vitamin D (12) Leukocytosis Qualifiers: Leukocytosis type: unspecified Qualified Code(s): D72.829 - Elevated white blood cell count, unspecified Is this a current diagnosis for this admission?: Yes Plan: We will obtain chest x-ray, blood cultures and urine cultures.
[2018-07-29] MEDS: GLIMEPIRIDE 1 MG TABLET PO SCH (08:38)
[2018-07-29] MEDS ORDERED: CEFTRIAXONE 1 GM/D5W RTU 50 ML IV SCH (10:00)
--- NOTE | 2018-07-29 10:33 | PDOC PROGRESS REPORT ---
Subjective Progress Note for:: 07/29/18 Reason For Visit: Patient is more awake today and more responsive. He is not as noted down as he was yesterday. He still is quite sleepy. He is able to respond appropriately to questions. He denies any history of chest pain, shortness of breath, abdominal pains, fever or chills. Discussed his care with the treating nurse Samantha. He is up apparently responding more well and is able to take his medications and eat better as well as drink better as compared to the last few days. Labs and medications were reviewed.He has had couple of loose stools since he was begun on lactulose. Physical Exam Vital Signs: Temp Pulse Resp BP Pulse Ox 97.7 F 89 16 109/62 98 07/29/18 08:02 07/29/18 08:02 07/29/18 08:02 07/28/18 15:00 07/29/18 08:02 Intake & Output 07/28/18 07/29/18 07/30/18 06:59 06:59 06:59 Intake Total 618 420 Output Total 350 605 Balance 268 -185 Weight 63.8 kg 86.6 kg General appearance: PRESENT: no acute distress Respiratory exam: PRESENT: clear to auscultation yuliya, decreased breath sounds. ABSENT: crackles Cardiovascular exam: PRESENT: irregular rhythm, +S1, +S2 GI/Abdominal exam: PRESENT: normal bowel sounds, soft. ABSENT: firm, guarding, organomegaly, tenderness Extremities exam: PRESENT: +1 edema Neurological exam: PRESENT: altered Skin exam: ABSENT: cyanosis, erythema, rash Results Laboratory Results: 07/28/18 06:05 07/29/18 06:25 07/28/18 07/29/18 07/29/18 14:30 06:25 07:00 Carbonic Acid 0.57 L HCO3/H2CO3 Ratio 25:1 ABG pH 7.51 H ABG pCO2 18.9 L* ABG pO2 80.1 ABG HCO3 14.7 L ABG O2 Saturation 97.1 ABG Base Excess -6.7 FiO2 ROOM AIR Sodium 146.4 H Potassium 3.5 L Chloride 122 H Carbon Dioxide 16 L Anion Gap 8 BUN 19 Creatinine 0.85 Est GFR ( Amer) > 60 Est GFR (Non-Af Amer) > 60 Glucose 126 H Calcium 7.6 L Total Bilirubin 0.9 AST 156 H ALT 33 Alkaline Phosphatase 638 H Ammonia 43.5 H Total Protein 5.0 L Albumin 2.2 L 07/16/18 07/18/18 07/18/18 21:35 16:45 16:45 Creatine Kinase 728 H CK-MB (CK-2) 0.77 Troponin I 0.015 NT-Pro-B Natriuret Pep 28385 H 07/18/18 07/18/18 07/19/18 23:10 23:10 03:39 Creatine Kinase 706 H 756 H CK-MB (CK-2) 0.64 Troponin I 0.018 NT-Pro-B Natriuret Pep 07/19/18 03:39 Creatine Kinase CK-MB (CK-2) 0.59 Troponin I 0.019 NT-Pro-B Natriuret Pep Impressions: Sacrum and Coccyx X-Ray 07/16/18 20:24 IMPRESSION: No fracture. copyright 2010 [employer]- All Rights Reserved Chest X-Ray 07/18/18 00:00 IMPRESSION: Vascular congestion. Increasing basilar opacities and pleural effusions. Guidance Fluoroscopy 07/22/18 00:00 IMPRESSION: SUCCESSFUL PLACEMENT OF A 5 FR DUAL LUMEN 41 CM PICC IN THE RIGHT BASILIC VEIN. Interventional Vascular Procedure 07/22/18 00:00 IMPRESSION: SUCCESSFUL PLACEMENT OF A 5 FR DUAL LUMEN 41 CM PICC IN THE RIGHT BASILIC VEIN. PICC Line Insertion 07/22/18 00:00 IMPRESSION: SUCCESSFUL PLACEMENT OF A 5 FR DUAL LUMEN 41 CM PICC IN THE RIGHT BASILIC VEIN. Head CT 07/24/18 00:00 IMPRESSION: NORMAL BRAIN CT WITHOUT CONTRAST. EVIDENCE OF ACUTE STROKE: NO. Assessment & Plan - Diagnosis (1) Hypocalcemia Is this a current diagnosis for this admission?: Yes Plan: He needs to continue on IV calcium. However another choice would be to add this to the TPN which I believe Dr. Bárbara Julian is started today. Discussed this with Samantha to discuss with pharmacy to see if that can be arranged. He should get 3 g on a 24-hour basis.Obviously calcium should be monitored and the dose in the TPN should be titrated accordingly. (2) Congestive heart failure Qualifiers: Heart failure type: unspecified Heart failure chronicity: chronic Qualified Code(s): I50.9 - Heart failure, unspecified Is this a current diagnosis for this admission?: Yes Plan: Presently stable. A. fib rate uncontrolled. Being managed by Les Milian MD. Monitor. (3) Failure to thrive Is this a current diagnosis for this admission?: Yes Plan: He is got a combination of factors including his encephalopathy, anxiety/depression and obvious cancer leading him to poor intake and failure to thrive. Besides all the the above he has also developed high ammonia indicative of possible liver cirrhosis cirrhosis as well. He has been begun on antianxiety and antidepressants. (4) Metabolic acidosis Is this a current diagnosis for this admission?: Yes Plan: The background of respiratory alkalosis from possible hyperventilation from various reasons. Will monitor. And will not be too vigorous in correcting this metabolic acidosis which is secondary rather than primary. (5) Metastatic malignant neoplasm to prostate Is this a current diagnosis for this admission?: Yes Plan: As per Les Milian MD and heme oncology. (6) Vitamin D deficiency Is this a current diagnosis for this admission?: Yes Plan: As mentioned earlier. Currently measures are being instituted. Will follow. (7) Abnormal LFTs Is this a current diagnosis for this admission?: Yes Plan: From liver and bony metastasis.High ammonia levels indicative of underlying liver cirrhosis. Unaware of patient's previous alcohol history or hepatitis serologies. Patient started on lactulose. Ammonia though better still high. Needs appropriate lactulose to be titrated. Discussed with the with the treating nurse. Monitor closely. (8) Acute on chronic kidney failure Qualifiers: Chronic kidney disease stage: stage 3 (moderate) Plan: Presently stable. Nonoliguric. Continue present lines of management. (9) Acute psychosis Is this a current diagnosis for this admission?: Yes Plan: Multiple factors but apparently getting better.Now add another factor in the form of underlying liver cirrhosis as well. See response to lactulose. Monitor. (10) CKD (chronic kidney disease) stage 3, GFR 30-59 ml/min Is this a current diagnosis for this admission?: Yes Plan: Stable. Monitor. Avoid nephrotoxic drugs. Maintain hydration. (11) Dehydration Is this a current diagnosis for this admission?: Yes Plan: On IV fluids. Will monitor. Poor p.o. intake unfortunately. (12) Diabetes Qualifiers: Diabetes mellitus type: type 2 Chronic kidney disease stage: stage 3 (moderate) (14) Hypertension Qualifiers: Hypertension type: unspecified Qualified Code(s): I10 - Essential (primary) hypertension (15) Hypokalemia Plan: Adjust replacements and monitor. (16) Malnutrition Qualifiers: Malnutrition type: protein-calorie malnutrition Protein-calorie malnutrition severity: moderate Qualified Code(s): E44.0 - Moderate protein- calorie malnutrition Is this a current diagnosis for this admission?: Yes Plan: From poor oral intake. TPN being initiated. (17) Physical deconditioning Is this a current diagnosis for this admission?: Yes (18) Atrial fibrillation Qualifiers: Atrial fibrillation type: chronic Qualified Code(s): I48.2 - Chronic atrial fibrillation Is this a current diagnosis for this admission?: Yes Plan: Had decompensated in the last couple of days but presently compensated.
[2018-07-29] MEDS ORDERED: DEXTROSE 50%-WATER SYRINGE 12.5 GM/25 ML DOSE IV PRN (11:00)
[2018-07-29] MEDS ORDERED: DEXTROSE 40% GEL 15 GM TUBE PO PRN (11:00)
[2018-07-29] MEDS ORDERED: GLUCAGON,HUMAN RECOMB 1 MG INJ IM PRN (11:00)
[2018-07-29] MEDS ORDERED: DEXTROSE 50%-WATER SYRINGE 25 GM/50 ML DOSE IV PRN (11:00)
[2018-07-29] MEDS ORDERED: DEXTROSE 40% GEL 15 GM TUBE X 2 PO PRN (11:00)
[2018-07-29] MEDS ORDERED: DEXTROSE 10%-WATER 1,000 ML IV PRN (11:00)
[2018-07-29] MEDS: CEFTRIAXONE SODIUM 1,000 MG in DEXTROSE 5%-WATER 50 ML IV SCH (11:10)
[2018-07-29] MEDS: CALCITRIOL 0.25 MCG CAPSULE PO SCH (11:11)
[2018-07-29] MEDS: MEGESTROL ACETATE SUSP 400 MG/10 ML UDCUP PO SCH (11:12)
[2018-07-29] MEDS: VALPROATE SODIUM SYRUP 250 MG/5 ML UDCUP PO SCH ×4 (11:12→21:17)
[2018-07-29] MEDS: CALCIUM CARBONATE 500 MG TABLET PO SCH (11:13)
[2018-07-29] MEDS: LEVETIRACETAM ORAL SOLN 500 MG/5 ML UDCUP PO SCH ×2 (11:14→21:17)
[2018-07-29] MEDS: POTASSIUM CHLORIDE 20 MEQ/15 ML UDCUP PO SCH (11:14)
[2018-07-29] MEDS: APIXABAN 2.5 MG TABLET PO SCH ×2 (11:14→18:38)
[2018-07-29] MEDS: BUSPIRONE HCL 10 MG TABLET PO SCH ×2 (11:16→18:35)
[2018-07-29] MEDS: LACTULOSE SYRUP 20 GM/30 ML UDCUP PO SCH ×3 (11:18→18:36)
[2018-07-29] MEDS: NORMAL SALINE 10 ML SDV (SCHEDULED) IV SCH ×2 (11:19→21:21)
[2018-07-29 11:33] LABS: APPEARANCE,URINE CLOUDY; BILIRUBIN,URINE SMALL (NEGATIVE); GLUCOSE, URINE NEGATIVE (NEGATIVE); KETONES,URINE NEGATIVE (NEGATIVE); LEUKOCYTE ESTERASE,URINE LARGE (NEGATIVE); NITRITE,URINE NEGATIVE (NEGATIVE); PROTEIN,URINE 100 mg/dL (NEGATIVE); URINE SPECIFIC GRAVITY 1.019; UROBILINOGEN,URINE NEGATIVE mg/dL (<2.0)
[2018-07-29 11:34] LABS: COLOR,URINE DARK YELLOW
--- NOTE | 2018-07-29 11:54 | RADIOLOGY REPORT (SQ) ---
EXAM DESCRIPTION: CHEST SINGLE VIEW COMPLETED DATE/TIME: 07/29/2018 11:39 am REASON FOR STUDY: COUGH COMPARISON: 07/18/2018. EXAM PARAMETERS: NUMBER OF VIEWS: One view. TECHNIQUE: Single frontal radiographic view of the chest acquired. RADIATION DOSE: NA LIMITATIONS: None. FINDINGS: LUNGS AND PLEURA: Basilar airspace disease and bilateral pleural effusions, slightly worse . MEDIASTINUM AND HILAR STRUCTURES: No masses. Contour normal. HEART AND VASCULAR STRUCTURES: Mild cardiomegaly. Vascular congestion. BONES: No acute findings. HARDWARE: PICC line. OTHER: No other significant finding. IMPRESSION: MILD CARDIOMEGALY AND VASCULAR CONGESTION. BASILAR AIRSPACE DISEASE AND SMALL PLEURAL E FFUSIONS APPEAR SLIGHTLY WORSE. TECHNICAL DOCUMENTATION: JOB ID: [id number] [employer] [facility]- All Rights Reserved Reading location - IP/workstation name: [email or web address]
[2018-07-29] MEDS: LEVOFLOXACIN 750 MG/D5W RTU 750 MG/150 ML RTUPB IV SCH (12:16)
[2018-07-29] MEDS: MORPHINE SULFATE 10 MG/ML INJ IV PRN ×2 (14:28→21:16)
[2018-07-29] MEDS: CALCIUM GLUCONATE 1,000 MG in DEXTROSE 5%-WATER 50 ML IV SCH ×2 (14:30→21:21)
[2018-07-29] MEDS: AMINO ACIDS 5%/D25W 1,000 ML IV PRN (20:30)
[2018-07-29] MEDS: ATORVASTATIN CALCIUM 10 MG TABLET PO SCH (21:20)
[2018-07-29] MEDS: TAMSULOSIN HCL 0.4 MG CAP.SR.24H PO SCH (21:21)
[2018-07-29] MEDS: LATANOPROST 0.005% OPH SOLN 2.5 ML OS SCH (21:22)
[2018-07-30] MEDS: DILTIAZEM HCL 30 MG TABLET PO SCH ×5 (00:16→23:09)
[2018-07-30] MEDS: MORPHINE SULFATE 10 MG/ML INJ IV PRN ×2 (01:42→08:22)
[2018-07-30] MEDS: HALOPERIDOL LACTATE INJ 5 MG/1 ML VIAL IM PRN (01:42)
[2018-07-30 05:31] LABS: ALANINE AMINOTRANSFERASE 35 U/L (21-72); ALBUMIN 2.2 g/dL (3.5-5.0); ALKALINE PHOSPHATASE 615 U/L (38-126); ANION GAP 8 (5-19); ASPARTATE AMINO TRANSFERASE 181 U/L (17-59); BILIRUBIN,DIRECT 0.8 mg/dL (0.0-0.4); BILIRUBIN,TOTAL 0.8 mg/dL (0.2-1.3); BLOOD UREA NITROGEN 23 mg/dL (7-20); CALCIUM 7.9 mg/dL (8.4-10.2); CARBON DIOXIDE 16 mmol/L (22-30); CHLORIDE 121 mmol/L (98-107); GLUCOSE 216 mg/dL (75-110); SODIUM 145.3 mmol/L (137-145); TOTAL PROTEIN 4.9 g/dL (6.3-8.2)
[2018-07-30] MEDS: CALCIUM GLUCONATE 1,000 MG in DEXTROSE 5%-WATER 50 ML IV SCH (05:37)
[2018-07-30] MEDS: INSULIN REG, HUMAN 100 UNIT/ML 3 ML VIAL (PYX) SUBCUT PRN ×3 (06:48→17:45)
[2018-07-30 07:20] LABS: PHOSPHORUS 2.2 mg/dL (2.5-4.5)
[2018-07-30 07:27] LABS: PREALBUMIN 8.6 mg/dL (17.6-36.0)
[2018-07-30] MEDS: GLIMEPIRIDE 1 MG TABLET PO SCH (08:23)
[2018-07-30 09:09] LABS: HEPATITS B SURFACE ANTIGEN Negative (Negative)
--- NOTE | 2018-07-30 09:33 | PDOC PROGRESS REPORT ---
Subjective Progress Note for:: 07/30/18 Subjective:: Still very lethargic this morning. Tolerated TPN well. The x-ray did not show any infiltrates some mild vascular congestion. He did eat a little bit better this morning. Reason For Visit: HYPOCALCEMIA, VIT D DEF, MALNUTRITION ACIDOSIS Physical Exam Vital Signs: Temp Pulse Resp BP Pulse Ox 98.6 F 99 20 138/61 H 97 07/30/18 07:22 07/30/18 07:22 07/30/18 07:22 07/30/18 07:22 07/30/18 07:22 Intake & Output 07/29/18 07/30/18 07/31/18 06:59 06:59 06:59 Intake Total 420 650 Output Total 605 640 Balance -185 10 Weight 86.6 kg 86.1 kg General appearance: PRESENT: mild distress Head exam: PRESENT: atraumatic Eye exam: PRESENT: conjunctival injection Mouth exam: PRESENT: dry mucosa Neck exam: PRESENT: carotid bruit. ABSENT: JVD Respiratory exam: PRESENT: crackles Cardiovascular exam: PRESENT: irregular rhythm, +S1, +S2 GI/Abdominal exam: PRESENT: normal bowel sounds, soft Extremities exam: PRESENT: pedal edema Neurological exam: PRESENT: awake Psychiatric exam: PRESENT: anxious Results Laboratory Results: 07/28/18 06:05 07/30/18 04:10 07/29/18 07/30/18 07/30/18 11:10 04:10 04:10 Sodium 145.3 H Cancelled Potassium 4.0 Cancelled Chloride 121 H Cancelled Carbon Dioxide 16 L Cancelled Anion Gap 8 Cancelled BUN 23 H Cancelled Creatinine 1.01 Cancelled Est GFR ( Amer) > 60 Cancelled Est GFR (Non-Af Amer) > 60 Cancelled Glucose 216 H Cancelled Calcium 7.9 L Cancelled Phosphorus 2.2 L Total Bilirubin 0.8 Cancelled AST 181 H Cancelled ALT 35 Cancelled Alkaline Phosphatase 615 H Cancelled Total Protein 4.9 L Cancelled Albumin 2.2 L Cancelled Prealbumin 8.6 L Urine Color DARK YELLOW Urine Appearance CLOUDY Urine pH 5.0 Ur Specific [place] 1.019 Urine Protein 100 H Urine Glucose (UA) NEGATIVE Urine Ketones NEGATIVE Urine Blood SMALL H Urine Nitrite NEGATIVE Ur Leukocyte Esterase LARGE H Urine WBC (Auto) 123 Urine RBC (Auto) 65 07/16/18 07/18/1818 21:35 16:45 16:45 Creatine Kinase 728 H CK-MB (CK-2) 0.77 Troponin I 0.015 NT-Pro-B Natriuret Pep 35741 H 07/18/18 07/18/18 07/19/18 23:10 23:10 03:39 Creatine Kinase 706 H 756 H CK-MB (CK-2) 0.64 Troponin I 0.018 NT-Pro-B Natriuret Pep 07/19/18 03:39 Creatine Kinase CK-MB (CK-2) 0.59 Troponin I 0.019 NT-Pro-B Natriuret Pep Impressions: Sacrum and Coccyx X-Ray 07/16/18 20:24 IMPRESSION: No fracture. copyright 2010 [employer]- All Rights Reserved Guidance Fluoroscopy 07/22/18 00:00 IMPRESSION: SUCCESSFUL PLACEMENT OF A 5 FR DUAL LUMEN 41 CM PICC IN THE RIGHT BASILIC VEIN. Interventional Vascular Procedure 07/22/18 00:00 IMPRESSION: SUCCESSFUL PLACEMENT OF A 5 FR DUAL LUMEN 41 CM PICC IN THE RIGHT BASILIC VEIN. PICC Line Insertion 07/22/18 00:00 IMPRESSION: SUCCESSFUL PLACEMENT OF A 5 FR DUAL LUMEN 41 CM PICC IN THE RIGHT BASILIC VEIN. Head CT 07/24/18 00:00 IMPRESSION: NORMAL BRAIN CT WITHOUT CONTRAST. EVIDENCE OF ACUTE STROKE: NO. Chest X-Ray 07/29/18 10:57 IMPRESSION: MILD CARDIOMEGALY AND VASCULAR CONGESTION. BASILAR AIRSPACE DISEASE AND SMALL PLEURAL EFFUSIONS APPEAR SLIGHTLY WORSE. Assessment & Plan - Diagnosis (1) Atrial fibrillation Qualifiers: Atrial fibrillation type: chronic Qualified Code(s): I48.2 - Chronic atrial fibrillation Is this a current diagnosis for this admission?: Yes Plan: Continue with Cardizem p.o. no further runs of V. tach since we have increased the Cardizem to 60 every 6 (2) Decubitus ulcer of sacral region, stage 1 Is this a current diagnosis for this admission?: Yes (3) Failure to thrive Is this a current diagnosis for this admission?: Yes Plan: Tolerating TPN well but is not eating well (4) Hypocalcemia Is this a current diagnosis for this admission?: Yes Plan: Improved with treatment by the nephrology. (5) Anemia, chronic disease Is this a current diagnosis for this admission?: Yes (6) CKD (chronic kidney disease) stage 3, GFR 30-59 ml/min Is this a current diagnosis for this admission?: Yes (7) Metastatic malignant neoplasm to prostate Is this a current diagnosis for this admission?: Yes Plan: We will reconsult hematology oncology (8) Dementia Is this a current diagnosis for this admission?: Yes (9) Acute psychosis Is this a current diagnosis for this admission?: Yes (10) Memory loss, short term Is this a current diagnosis for this admission?: Yes (11) Vitamin D deficiency Is this a current diagnosis for this admission?: Yes Plan: Most probably related to hypocalcemia. We will add vitamin D (12) Leukocytosis Qualifiers: Leukocytosis type: unspecified Qualified Code(s): D72.829 - Elevated white blood cell count, unspecified Is this a current diagnosis for this admission?: Yes Plan: We will obtain chest x-ray, blood cultures and urine cultures.
[2018-07-30] MEDS: NORMAL SALINE 10 ML SDV (SCHEDULED) IV SCH ×2 (09:52→22:36)
[2018-07-30] MEDS: APIXABAN 2.5 MG TABLET PO SCH ×2 (10:04→17:46)
[2018-07-30] MEDS: CALCITRIOL 0.25 MCG CAPSULE PO SCH (10:04)
[2018-07-30] MEDS: SERTRALINE HCL 50 MG TABLET PO SCH (10:04)
[2018-07-30] MEDS: VALPROATE SODIUM SYRUP 250 MG/5 ML UDCUP PO SCH ×4 (10:05→22:35)
[2018-07-30] MEDS: LACTULOSE SYRUP 20 GM/30 ML UDCUP PO SCH ×3 (10:05→17:46)
[2018-07-30] MEDS: LEVETIRACETAM ORAL SOLN 500 MG/5 ML UDCUP PO SCH ×2 (10:05→22:35)
[2018-07-30] MEDS: MEGESTROL ACETATE SUSP 400 MG/10 ML UDCUP PO SCH (10:06)
[2018-07-30] MEDS: CEFTRIAXONE SODIUM 1,000 MG in DEXTROSE 5%-WATER 50 ML IV SCH (10:06)
[2018-07-30] MEDS: LEVOFLOXACIN 750 MG/D5W RTU 750 MG/150 ML RTUPB IV SCH (10:39)
[2018-07-30] MEDS: BUSPIRONE HCL 10 MG TABLET PO SCH ×2 (10:39→17:46)
--- NOTE | 2018-07-30 17:29 | PDOC PROGRESS REPORT ---
Subjective Progress Note for:: 07/30/18 Reason For Visit: Patient seen this morning. He is still lethargic but responds to questions. Denies any specific complaints of chest pain or shortness of breath. Does not look to be in any pain. Labs and medications were reviewed and discussed with the treating nurse. He is on IV calcium and TPN. Physical Exam Vital Signs: Temp Pulse Resp BP Pulse Ox 97.9 F 81 20 126/75 H 100 07/30/18 15:31 07/30/18 15:31 07/30/18 15:31 07/30/18 15:31 07/30/18 15:31 Intake & Output 07/29/18 07/30/18 07/31/18 06:59 06:59 06:59 Intake Total 420 650 200 Output Total 605 640 Balance -185 10 200 Weight 86.6 kg 86.1 kg General appearance: PRESENT: no acute distress Respiratory exam: PRESENT: clear to auscultation yuliya. ABSENT: crackles Cardiovascular exam: PRESENT: irregular rhythm, +S1, +S2 GI/Abdominal exam: PRESENT: normal bowel sounds, soft. ABSENT: firm, guarding, organomegaly, tenderness Extremities exam: PRESENT: +1 edema Neurological exam: PRESENT: altered Skin exam: ABSENT: erythema, rash Results Laboratory Results: 07/28/18 06:05 07/30/18 04:10 07/30/18 07/30/18 04:10 04:10 Sodium 145.3 H Cancelled Potassium 4.0 Cancelled Chloride 121 H Cancelled Carbon Dioxide 16 L Cancelled Anion Gap 8 Cancelled BUN 23 H Cancelled Creatinine 1.01 Cancelled Est GFR ( Amer) > 60 Cancelled Est GFR (Non-Af Amer) > 60 Cancelled Glucose 216 H Cancelled Calcium 7.9 L Cancelled Phosphorus 2.2 L Total Bilirubin 0.8 Cancelled AST 181 H Cancelled ALT 35 Cancelled Alkaline Phosphatase 615 H Cancelled Total Protein 4.9 L Cancelled Albumin 2.2 L Cancelled Prealbumin 8.6 L 07/29/18 11:10 Clean Catch Midstream Urine Culture - Final C.albicans/C.dubliniensis 07/16/18 07/18/18 07/18/18 21:35 16:45 16:45 Creatine Kinase 728 H CK-MB (CK-2) 0.77 Troponin I 0.015 NT-Pro-B Natriuret Pep 39469 H 07/18/18 07/18/18 07/19/18 23:10 23:10 03:39 Creatine Kinase 706 H 756 H CK-MB (CK-2) 0.64 Troponin I 0.018 NT-Pro-B Natriuret Pep 07/19/18 03:39 Creatine Kinase CK-MB (CK-2) 0.59 Troponin I 0.019 NT-Pro-B Natriuret Pep Impressions: Sacrum and Coccyx X-Ray 07/16/18 20:24 IMPRESSION: No fracture. copyright 2010 [employer]- All Rights Reserved Guidance Fluoroscopy 07/22/18 00:00 IMPRESSION: SUCCESSFUL PLACEMENT OF A 5 FR DUAL LUMEN 41 CM PICC IN THE RIGHT BASILIC VEIN. Interventional Vascular Procedure 07/22/18 00:00 IMPRESSION: SUCCESSFUL PLACEMENT OF A 5 FR DUAL LUMEN 41 CM PICC IN THE RIGHT BASILIC VEIN. PICC Line Insertion 07/22/18 00:00 IMPRESSION: SUCCESSFUL PLACEMENT OF A 5 FR DUAL LUMEN 41 CM PICC IN THE RIGHT BASILIC VEIN. Head CT 07/24/18 00:00 IMPRESSION: NORMAL BRAIN CT WITHOUT CONTRAST. EVIDENCE OF ACUTE STROKE: NO. Chest X-Ray 07/29/18 10:57 IMPRESSION: MILD CARDIOMEGALY AND VASCULAR CONGESTION. BASILAR AIRSPACE DISEASE AND SMALL PLEURAL EFFUSIONS APPEAR SLIGHTLY WORSE. Assessment & Plan - Diagnosis (1) Hypocalcemia Is this a current diagnosis for this admission?: Yes Plan: He needs to continue on IV calcium.His calcium is now remaining rather stable. (2) Congestive heart failure Qualifiers: Heart failure type: unspecified Heart failure chronicity: chronic Qualified Code(s): I50.9 - Heart failure, unspecified Is this a current diagnosis for this admission?: Yes Plan: Presently stable. A. fib rate uncontrolled. Being managed by Les Milian MD. Monitor. (3) Failure to thrive Is this a current diagnosis for this admission?: Yes Plan: He is got a combination of factors including his encephalopathy, anxiety/depression and obvious cancer leading him to poor intake and failure to thrive. Besides all the the above he has also developed high ammonia indicative of possible liver cirrhosis cirrhosis as well. He has been begun on antianxiety and antidepressants. Currently been begun on TPN which is going to help him hopefully. (4) Metabolic acidosis Is this a current diagnosis for this admission?: Yes Plan: The background of respiratory alkalosis from possible hyperventilation from various reasons. Will monitor. And will not be too vigorous in correcting this metabolic acidosis which is secondary rather than primary. (5) Metastatic malignant neoplasm to prostate Is this a current diagnosis for this admission?: Yes Plan: As per Les Milian MD and [facility] oncology. (6) Abnormal LFTs Is this a current diagnosis for this admission?: Yes Plan: From liver and bony metastasis.High ammonia levels indicative of underlying liver cirrhosis. Unaware of patient's previous alcohol history or hepatitis serologies. Patient started on lactulose. Ammonia though better still high. Needs appropriate lactulose to be titrated. Discussed with the with the treating nurse. Monitor closely. (7) Acute on chronic kidney failure Qualifiers: Chronic kidney disease stage: stage 3 (moderate) Plan: Presently stable. Nonoliguric. Continue present lines of management. (8) Acute psychosis Is this a current diagnosis for this admission?: Yes Plan: Multiple factors but apparently getting better.Now add another factor in the form of underlying liver cirrhosis as well. See response to lactulose. Monitor. (9) CKD (chronic kidney disease) stage 3, GFR 30-59 ml/min Is this a current diagnosis for this admission?: Yes Plan: Stable. Monitor. Avoid nephrotoxic drugs. Maintain hydration. (10) Dehydration Is this a current diagnosis for this admission?: Yes (11) Diabetes Qualifiers: Diabetes mellitus type: type 2 Chronic kidney disease stage: stage 3 (moderate) (12) Hypertension Qualifiers: Hypertension type: unspecified Qualified Code(s): I10 - Essential (primary) hypertension Plan: controlled. Monitor (13) Hypokalemia Plan: Adjust replacements and monitor. (14) Malnutrition Qualifiers: Malnutrition type: protein-calorie malnutrition Protein-calorie malnutrition severity: moderate Qualified Code(s): E44.0 - Moderate protein- calorie malnutrition Is this a current diagnosis for this admission?: Yes Plan: From poor oral intake. TPN initiated. (15) Physical deconditioning Is this a current diagnosis for this admission?: Yes (16) Atrial fibrillation Qualifiers: Atrial fibrillation type: chronic Qualified Code(s): I48.2 - Chronic atrial fibrillation Is this a current diagnosis for this admission?: Yes Plan: Had decompensated in the last couple of days but presently compensated.
[2018-07-30] MEDS: AMINO ACIDS 5%/D25W 1,000 ML IV PRN (19:52)
[2018-07-30] MEDS: TAMSULOSIN HCL 0.4 MG CAP.SR.24H PO SCH (22:35)
[2018-07-30] MEDS: ATORVASTATIN CALCIUM 10 MG TABLET PO SCH (22:35)
[2018-07-30] MEDS: LATANOPROST 0.005% OPH SOLN 2.5 ML OS SCH (22:38)
[2018-07-31] MEDS: DILTIAZEM HCL 30 MG TABLET PO SCH ×3 (05:59→17:26)
[2018-07-31] MEDS: INSULIN REG, HUMAN 100 UNIT/ML 3 ML VIAL (PYX) SUBCUT PRN ×2 (06:41→17:30)
[2018-07-31 07:59] LABS: ALANINE AMINOTRANSFERASE 39 U/L (21-72); ALBUMIN 2.3 g/dL (3.5-5.0); ALKALINE PHOSPHATASE 1032 U/L (38-126); ANION GAP 8 (5-19); ASPARTATE AMINO TRANSFERASE 686 U/L (17-59); BILIRUBIN,DIRECT 0.9 mg/dL (0.0-0.4); BLOOD UREA NITROGEN 30 mg/dL (7-20); CALCIUM 8.1 mg/dL (8.4-10.2); CARBON DIOXIDE 17 mmol/L (22-30); CHLORIDE 122 mmol/L (98-107); GLUCOSE 153 mg/dL (75-110); POTASSIUM 3.9 mmol/L (3.6-5.0); SODIUM 147.2 mmol/L (137-145); TOTAL PROTEIN 5.1 g/dL (6.3-8.2)
[2018-07-31 08:06] LABS: PREALBUMIN 8.9 mg/dL (17.6-36.0)
[2018-07-31 09:37] LABS: HCV FIBROSURE ALT P5P 37 IU/L (0-55); HCV FIBROSURE GGT 322 IU/L (0-65); HCV FIBROSURE HAPTOGLOBIN 412 mg/dL (34-200); NECROINFLAM ACTIVITY GRADE A0-A1 (.)
[2018-07-31] MEDS: CEFTRIAXONE SODIUM 1,000 MG in DEXTROSE 5%-WATER 50 ML IV SCH (10:03)
[2018-07-31] MEDS: BUSPIRONE HCL 10 MG TABLET PO SCH ×2 (10:05→17:25)
[2018-07-31] MEDS: VALPROATE SODIUM SYRUP 250 MG/5 ML UDCUP PO SCH ×3 (10:05→17:26)
[2018-07-31] MEDS: SERTRALINE HCL 50 MG TABLET PO SCH (10:05)
[2018-07-31] MEDS: CALCITRIOL 0.25 MCG CAPSULE PO SCH (10:05)
[2018-07-31] MEDS: LEVETIRACETAM ORAL SOLN 500 MG/5 ML UDCUP PO SCH (10:05)
[2018-07-31] MEDS: MEGESTROL ACETATE SUSP 400 MG/10 ML UDCUP PO SCH (10:05)
[2018-07-31] MEDS: APIXABAN 2.5 MG TABLET PO SCH ×2 (10:05→17:26)
[2018-07-31] MEDS: LACTULOSE SYRUP 20 GM/30 ML UDCUP PO SCH ×3 (10:05→17:26)
[2018-07-31] MEDS: LEVOFLOXACIN 750 MG/D5W RTU 750 MG/150 ML RTUPB IV SCH (10:06)
[2018-07-31] MEDS: NORMAL SALINE 10 ML SDV (SCHEDULED) IV SCH (10:07)
[2018-07-31] MEDS ORDERED: FUROSEMIDE INJ/PF 20 MG/2 ML SDV IV ONE (14:00)
--- NOTE | 2018-07-31 15:43 | PDOC PROGRESS REPORT ---
Subjective Progress Note for:: 07/31/18 Subjective:: Patient is new to me. I am covering for Dr. Milian. Patient is a 72 years old male with multiple comorbidities brought from assisted living with chief complaint of sacral pain. Patient is a known case of stage IV metastatic prostate cancer, type 2 diabetes mellitus, stage III CKD, CHF, hypertension, malnutrition, hypocalcemia and seizure disorder. Afternoon I seen patient in bed and is grunting he does not respond to verbal stimuli. His chest is full of crackles. His vital signs are okay. His blood work shows mild hyponatremia with sodium of 147.2. His daughter is on her way to come to the hospital so I will discusses her to change the status of care to comfort care. Reason For Visit: HYPOCALCEMIA, VIT D DEF, MALNUTRITION ACIDOSIS Physical Exam Vital Signs: Temp Pulse Resp BP Pulse Ox 98 F 83 35 H 129/61 H 95 07/31/18 13:06 07/31/18 13:06 07/31/18 15:09 07/31/18 13:06 07/31/18 15:09 Intake & Output 07/30/18 07/31/18 08/01/18 06:59 06:59 06:59 Intake Total 650 1265 50 Output Total 640 800 Balance 10 465 50 Weight 86.1 kg 87.3 kg General appearance: PRESENT: mild distress Head exam: PRESENT: atraumatic Eye exam: PRESENT: conjunctiva pink Respiratory exam: PRESENT: accessory muscle use, crackles Cardiovascular exam: PRESENT: tachycardia GI/Abdominal exam: PRESENT: normal bowel sounds, soft. ABSENT: distended, guarding, mass, organolmegaly, rebound, tenderness Results Laboratory Results: 07/28/18 06:05 07/31/18 06:58 07/31/18 06:58 Sodium 147.2 H Potassium 3.9 Chloride 122 H Carbon Dioxide 17 L Anion Gap 8 BUN 30 H Creatinine 1.12 Est GFR ( Amer) > 60 Est GFR (Non-Af Amer) > 60 Glucose 153 H Calcium 8.1 L Total Bilirubin 1.0 AST 686 H ALT 39 Alkaline Phosphatase 1032 H Total Protein 5.1 L Albumin 2.3 L Prealbumin 8.9 L 07/29/18 11:10 Clean Catch Midstream Urine Culture - Final C.albicans/C.dubliniensis 07/16/18 07/18/18 07/18/18 21:35 16:45 16:45 Creatine Kinase 728 H CK-MB (CK-2) 0.77 Troponin I 0.015 NT-Pro-B Natriuret Pep [id number] H 07/18/18 07/18/18 07/19/18 23:10 23:10 03:39 Creatine Kinase 706 H 756 H CK-MB (CK-2) 0.64 Troponin I 0.018 NT-Pro-B Natriuret Pep 07/19/18 03:39 Creatine Kinase CK-MB (CK-2) 0.59 Troponin I 0.019 NT-Pro-B Natriuret Pep Impressions: Sacrum and Coccyx X-Ray 07/16/18 20:24 IMPRESSION: No fracture. copyright 2011 [employer]- All Rights Reserved Guidance Fluoroscopy 07/22/18 00:00 IMPRESSION: SUCCESSFUL PLACEMENT OF A 5 FR DUAL LUMEN 41 CM PICC IN THE RIGHT BASILIC VEIN. Interventional Vascular Procedure 07/22/18 00:00 IMPRESSION: SUCCESSFUL PLACEMENT OF A 5 FR DUAL LUMEN 41 CM PICC IN THE RIGHT BASILIC VEIN. PICC Line Insertion 07/22/18 00:00 IMPRESSION: SUCCESSFUL PLACEMENT OF A 5 FR DUAL LUMEN 41 CM PICC IN THE RIGHT BASILIC VEIN. Head CT 07/24/18 00:00 IMPRESSION: NORMAL BRAIN CT WITHOUT CONTRAST. EVIDENCE OF ACUTE STROKE: NO. Chest X-Ray 07/29/18 10:57 IMPRESSION: MILD CARDIOMEGALY AND VASCULAR CONGESTION. BASILAR AIRSPACE DISEASE AND SMALL PLEURAL EFFUSIONS APPEAR SLIGHTLY WORSE. Assessment & Plan - Diagnosis (1) Dementia Is this a current diagnosis for this admission?: Yes Plan: Continue current regimen (2) Failure to thrive Is this a current diagnosis for this admission?: Yes Plan: Patient has been on TPN (3) Metabolic acidosis Is this a current diagnosis for this admission?: Yes Plan: Has resolved but currently patient has mild metabolic alkalosis (4) Metastatic malignant neoplasm to prostate Is this a current diagnosis for this admission?: Yes Plan: Management per oncologist (5) Abnormal LFTs Is this a current diagnosis for this admission?: Yes Plan: The alkaline phosphatase is markedly elevated most probably related to bone metastases does not look at his of liver origin. (6) Acute on chronic kidney failure Qualifiers: Chronic kidney disease stage: stage 3 (moderate) Is this a current diagnosis for this admission?: Yes Plan: Improving. Management per nephrology (7) Altered mental status Qualifiers: Altered mental status type: delirium Qualified Code(s): R41.0 - Disorientation, unspecified Is this a current diagnosis for this admission?: Yes Plan: No change (8) Diabetes 1.5, managed as type 2 Is this a current diagnosis for this admission?: Yes Plan: Continue current regimen (9) Leukocytosis Qualifiers: Leukocytosis type: unspecified Qualified Code(s): D72.829 - Elevated white blood cell count, unspecified Is this a current diagnosis for this admission?: Yes Plan: Patient has mild leukocytosis may be stress related.
[2018-07-31 16:43] VITALS: BP 114/56
[2018-07-31] MEDS ORDERED: INSULIN GLARGINE,HUM.REC.ANLOG 300 UNIT/3 ML INSULN.PEN SUBCUT SCH (22:00)
[2018-08-02] MEDS ORDERED: FAT EMULSIONS 250 ML IV SCH (10:00)
--- NOTE | 2018-08-06 13:02 | Death Summary ---
Summary Date : 08/01/18 Time of :: 19:40 Autopsy: No Resuscitation Status: Do Not Resuscitate - Final Diagnosis (1) Dementia Is this a current diagnosis for this admission?: Yes (2) Failure to thrive Is this a current diagnosis for this admission?: Yes (3) Metabolic acidosis Is this a current diagnosis for this admission?: Yes (4) Metastatic malignant neoplasm to prostate Is this a current diagnosis for this admission?: Yes (5) Abnormal LFTs Is this a current diagnosis for this admission?: Yes (6) Acute on chronic kidney failure Is this a current diagnosis for this admission?: Yes (7) Altered mental status Is this a current diagnosis for this admission?: Yes (8) Diabetes 1.5, managed as type 2 Is this a current diagnosis for this admission?: Yes (9) Leukocytosis Is this a current diagnosis for this admission?: Yes Hospital Course:: Patient is a 72 years old male with multiple comorbidities brought from assisted living with chief complaint of sacral pain. Patient is a known case of stage IV metastatic prostate cancer, type 2 diabetes mellitus, stage III CKD, CHF, hypertension, malnutrition, hypocalcemia and seizure disorder.[employer] and oncologist has been involved in the management of this patient and managed accordingly.Patient's condition deterirated gradually.He became hypoxemic and had laboured breathing.He was put on bipap and had had aggressive suctioning.I discussed and answered questions to his daughter who is the POA.Patient couldn't come out of his situation and pronaunced at 19:40.
== END 2018-07-31 21:30 | DRG 641 ==
LOC: ER 20:08 → EH 23:30 → 4W 07-17 00:44 → 4N 07-30 17:00
PROVIDERS: ADMIT Internal Medicine; ATTEND Internal Medicine
PROC: 02HV33Z Insertion of Infusion Device into Superior Vena Cava, Percutaneous Approach (ICD-10-PCS; principal; 2018-07-22)
PROC: B518ZZA Fluoroscopy of Superior Vena Cava, Guidance (ICD-10-PCS; 2018-07-22)
PROC: B548ZZA Ultrasonography of Superior Vena Cava, Guidance (ICD-10-PCS; 2018-07-22)
PROC: 30233N1 Transfusion of Nonautologous Red Blood Cells into Peripheral Vein, Percutaneous Approach (ICD-10-PCS; 2018-07-22)
PROC: 30233N1 Transfusion of Nonautologous Red Blood Cells into Peripheral Vein, Percutaneous Approach (ICD-10-PCS; 2018-07-23)
PROC: 3E0336Z Introduction of Nutritional Substance into Peripheral Vein, Percutaneous Approach (ICD-10-PCS; 2018-07-30)
DX: E83.51 Hypocalcemia (principal); C79.51 Secondary malignant neoplasm of bone; I13.0 Hypertensive heart and chronic kidney disease with heart failure and stage 1 through stage 4 chronic kidney disease, or unspecified chronic kidney disease; N17.9 Acute kidney failure, unspecified; F23 Brief psychotic disorder; E44.0 Moderate protein-calorie malnutrition; E87.2 Acidosis; C61 Malignant neoplasm of prostate; Z68.26 Body mass index [BMI] 26.0-26.9, adult; E11.22 Type 2 diabetes mellitus with diabetic chronic kidney disease; I48.2 Chronic atrial fibrillation; N18.3 Chronic kidney disease, stage 3 (moderate); I50.9 Heart failure, unspecified; L89.152 Pressure ulcer of sacral region, stage 2; E21.1 Secondary hyperparathyroidism, not elsewhere classified; M10.9 Gout, unspecified; F32.9 Major depressive disorder, single episode, unspecified; R62.7 Adult failure to thrive; Z96.652 Presence of left artificial knee joint; D63.8 Anemia in other chronic diseases classified elsewhere; E88.09 Other disorders of plasma-protein metabolism, not elsewhere classified; Z66 Do not resuscitate; E86.0 Dehydration; G40.909 Epilepsy, unspecified, not intractable, without status epilepticus; D50.9 Iron deficiency anemia, unspecified; Z78.1 Physical restraint status; E87.6 Hypokalemia; F41.9 Anxiety disorder, unspecified; Z79.899 Other long term (current) drug therapy
CPT/HCPCS: 36415; 36430; 36569; 36600; 70450; 71045; 72220; 76937; 77001; 80048; 80053; 80069; 81001; 82140; 82172; 82247; 82306; 82330; 82397; 82550; 82553; 82607; 82728; 82746; 82803; 82962; 82977; 83010; 83540; 83550; 83605; 83735; 83880; 83883; 83970; 84100; 84134; 84443; 84460; 84484; 85025; 85027; 85045; 86850; 86900; 86901; 86920; 87040; 87045; 87086; 87205; 87340; 87493; 93005; 93010; 94660; 96365; 99285; G8978-GP; G8979-GP; J0610; J0696; J1630; J1642; J1815; J1940; J1956; J2270; J3475; J3490; J7030; J7050; P9016